=== PATIENT | female | born 1990 | race Caucasian/White ===

== ENCOUNTER 2024-02-10 12:24 | Emergency (ER) | payer MEDICAID, SELFPAY ==
[2024-02-10 12:26] VITALS: BP 152/99; PULSE 107; RESP 26; TEMP 36.8; O2SAT 99
== END 2024-02-10 12:45 | disposition left against medical advice (07) ==
LOC: ED 12:50
PROVIDERS: PCP Nurse Practitioner Family
DX: Z53.21 Procedure and treatment not carried out due to patient leaving prior to being seen by health care provider (principal)

== ENCOUNTER 2024-05-19 23:25 | Emergency (ER) | payer MEDICAID, SELFPAY ==
[2024-05-19 23:27] VITALS: BP 162/102; PULSE 92; RESP 24; TEMP 36.8; O2SAT 98; BMI 49.2
[2024-05-19 23:30] VITALS: BP 122/72; PULSE 77; RESP 18; TEMP 36.6; O2SAT 95
[2024-05-20 00:30] VITALS: BP 125/66; PULSE 88; RESP 16; TEMP 36.9; O2SAT 99
[2024-05-20 01:30] VITALS: BP 128/79; PULSE 67; RESP 16; TEMP 36.8; O2SAT 98
[2024-05-20 01:30] LABS: Mucous, Urine 0 SEEN /hpf (<or=2+); White Blood Cells 0 SEEN /hpf (0-5)
[2024-05-20 01:32] LABS: Absolute Lymphocyte Count 4.25 X10^3/uL (0.83-4.51); Absolute Neutrophil Count 6.9 X10^3/uL (2.0-7.7); Basophil# 0.03 X10^3/uL; Basophil% 0.2 % (0-1); Eosinophils% 1.6 % (0-5); Hematocrit 36.6 % (37-47); Hemoglobin 11.9 g/dL (12.0-15.0); Lymphocyte # 4.25 X10^3/ul (0.83-4.51); Lymphocyte % 34.9 % (19-41); Mean Corp Hgb Conc 32.5 g/dL (32-36); Mean Corpuscular Hgb 28.5 pg (27.0-32.0); Mean Corpuscular Volume 87.8 fL (81-99); Mean Platelet Vol. 10.1 fl (6.2-12.0); Monocyte# 0.79 X10^3/uL; Monocyte% 6.5 % (0-10); NRBC Flagged by Analyzer 0 % (0-5); Neutrophil # 6.88 X10^3/uL (2.7-7.7); Neutrophil % 56.5 % (47-70); Platelet Count 283 K/mm3 (150-450); RBC Distribution Width CV 15.6 % (11.6-14.6); Red Blood Count 4.17 M/mm3 (4.2-5.4); White Blood Count 12.2 K/mm3 (4.4-11.0)
[2024-05-20 01:42] LABS: Internal QC Validated? YES +Cl - CLEAR BKGD; Pregnancy, Serum, hCG Quali. NEGATIVE Negative
[2024-05-20 01:43] LABS: Bacteria 1+ /hpf (None Seen); Color, Urine Yellow (Yellow); Glucose, Dipstick Normal (Normal); Ketone-Dipstick Negative (Negative); Leukocyte Esterase-Dipstick 25 /ul (Negative); Nitrite-Dipstick Negative (Negative); Occult Blood-Urine 250 /ul (Negative); Protein-Dipstick 30 mg/dl (Negative); Red Blood Cells-Urine 0-5 SEEN /hpf (0-5); Squamous Epithelial Cells - UA 0-5 SEEN /hpf (5-10); Urine Bilirubin Dipstick Negative (Negative); Urine Clarity Sl. Cloudy (Clear); Urine Urobilinogen Normal (Normal)
[2024-05-20 01:44] LABS: Amorphous Sediment 2+; Calcium Oxalate Crystals Ur 1+ /hpf (<or=2+)
[2024-05-20 01:48] LABS: ALB/GLOB Ratio 0.8 RATIO (0.9-2.4); AST(SGOT) 17 U/L (15-37); Alanine Aminotransfer ALT/SGPT 31 U/L (13-56); Albumin, Serum 3.1 g/dL (3.2-5.0); Alkaline Phosphatase 74 U/L (45-117); Anion Gap 5 (5-15); BUN 10 mg/dL (7-18); BUN/Creat Ratio 17.2 RATIO (10-20); Chloride 105 mmol/L (98-107); Creatinine, Serum 0.58 mg/dL (0.55-1.02); EST Glomerular Filtration Rate 125 mL/min (>60); Est Glom Filt Rate - Afr Amer 151 mL/min (>60); Estimated Creatinine Clearance 212.13 ml/min; Globulin 3.7 g/dL (2.2-4.2); Glucose 116 mg/dL (74-106); Potassium 3.4 mmol/L (3.5-5.1); Protein, Total 6.8 g/dL (6.4-8.2); Sodium Level 140 mmol/L (136-145)
[2024-05-20 02:00] VITALS: BP 125/86; PULSE 68; RESP 16; TEMP 36.7; O2SAT 99
[2024-05-20] MEDS: Ceftriaxone 1 GM/50 ML BAG IV (02:16)
[2024-05-20] MEDS: Ondansetron 4 MG/2 ML Vial IV (02:19)
[2024-05-20 03:00] VITALS: BP 110/65; PULSE 68; RESP 16; TEMP 36.8; O2SAT 98
--- NOTE | 2024-05-20 03:00 | EDS_ITS ---
HPI History of Present Illness Chief Complaint: Complaint Narrative Narrative: Patient is a 34-year-old female with no known significant past medical history who presents to the emergency department the chief complaint of urinary tract infection. Patient states that she was recently seen in the adult pulmonary and was diagnosed with a urinary tract infection was given a prescription for Bactrim however states that she has an allergy to Bactrim therefore should not start taking this. She returned to the OR and had further workup repeated i as well as a CT abdomen pelvis and was diagnosed with a urinary tract infection again and was given Keflex. States that she has been taking this medicine and states that she is still having painful urination, nausea vomiting and not feeling well which prompted her to come here for further evaluation management. PFSH [facility] Medical History Osteoarthritis of right knee Right knee pain Home Medications ?Medication ?Instructions ?Recorded ?Last Taken ?Type cephalexin 500 mg capsule 500 mg PO BID 05/20/24 Unknown History ciprofloxacin HCl 500 mg tablet 500 mg PO Q12H 5 days #10 tabs 05/20/24 Unknown Rx ondansetron 4 mg disintegrating 4 mg PO Q8H PRN PRN nausea/vomiting 05/20/24 Unknown History tablet tramadol 50 mg tablet 50 mg PO Q6H PRN moderate pain 05/20/24 Unknown History Allergy/AdvReac Type Severity Reaction Status Date / Time trazodone Allergy Severe Anaphylaxis Verified 05/19/24 23:27 sulfamethoxazole (From Allergy Intermediate Rash Verified 05/19/24 23:27 Bactrim) trimethoprim (From Bactrim) Allergy Intermediate Rash Verified 05/19/24 23:27 aspirin Allergy Swelling Verified 05/19/24 23:27 peanut (peanuts) Allergy Other Verified 05/19/24 23:27 diazepam (From Valium) AdvReac Other Verified 05/19/24 23:27 Family History Mother Heart disease Father Seizures Surgical History H/O laparoscopy History of cholecystectomy Social History household members: spouse and family Smoking Status: Current every day smoker tobacco type: cigarettes and e- cigarettes alcohol intake: never ROS ROS ED ROS Narrative Constitutional: Denies any fevers, chills, has, lightness, dizziness Abdomen: Complains of lower abdominal pain as well as nausea vomiting denies any diarrhea : Complains of painful urination denies any hematuria Neurological: Denies numbness, weakness, tingling Musculoskeletal: Denies back pain Skin: Denies rashes or lesions EXAM Physical Exam Narrative Exam Narrative: General: Patient was lying in bed rest comfortably did not appear to be in acute distress Head: Atraumatic, normocephalic Eyes: PERRL bilateral, EOMI bilateral, no conjunctival injection noted Neck: Soft, supple, trachea midline Cardiovascular: Regular rate and rhythm no murmurs gallops rubs noted Respiratory: Clear to auscultation bilaterally no rales rhonchi or wheezes noted Abdomen: Soft, nondistended, suprapubic tenderness palpation no rebound or guarding on exam, bowel sounds present x 4 Musculoskeletal: No CVA tenderness on exam Extremities: +5/5 strength noted in the bilateral upper and lower extremities, no pedal edema neuroexam, radial pulses +2/4 in the bilateral upper extremities Neurological: Patient was following commands knew that she was at [facility] there is 2023 Skin: Warm, dry, intact Const Vital Signs: 05/19/24 23:27 05/19/24 23:30 05/20/24 00:30 Temperature 98.2 F 98 F 98.4 F Temperature Source Oral Oral Oral Pulse Rate 92 77 88 Respiratory Rate 24 H 18 16 Blood Pressure 162/102 H 122/72 H 125/66 H Blood Pressure Mean 122 88 85 Pulse Ox 98 95 99 Oxygen Delivery Method Room Air Room Air Room Air 05/20/24 01:30 05/20/24 02:00 Temperature 98.2 F 98.1 F Temperature Source Oral Oral Pulse Rate 67 68 Respiratory Rate 16 16 Blood Pressure 128/79 H 125/86 H Blood Pressure Mean 95 99 Pulse Ox 98 99 Oxygen Delivery Method Room Air Room Air MDM MDM MDM Narrative Medical decision making narrative: Patient is a 34-year-old female who presents to the emergency department with a chief complaint of lower abdominal pain nausea vomiting and urinary symptoms. Patient will have a workup performed here on the differential diagnose includes but not limited to UTI, pyelonephritis, , ovarian cysts. Once workup is obtained reviewed she will be reevaluated. Patient CBC was significant for leukocytosis of 12,000, hemoglobin stable 11.9, platelet count normal at 283. Patient's sodium normal at 140, potassium was 3.4, creatinine normal at 0.58. Patient's glucose was noted to be 116, AST and ALT were 1731 respectively, urinalysis showed 25 leukocyte esterase negative nitrates with 1+ bacteria this will be sent for culture. She was given a gram Rocephin. On reevaluation the patient she states that she has to go home and pick her up from work. She states that she does not want a wait for her ultrasound. Patient understands that there is possibility of us missing a abscess or another abnormality within her uterus or ovaries she states that she will call her OB and have a ultrasound performed outpatient setting and follow- up with them. She states that she would like a different antibiotic which she will be given ciprofloxacin. Patient was advised to return with worsening symptoms or other concerns. She has to go pick her up and cannot will wait any longer. She states that she would sign out AMA if she needs to will not make her do this as she does not appear toxic in appearance she has a nonsurgical abdomen and her workup is unremarkable. Lab Data Labs: Laboratory Results - last 24 hr 05/20/24 01:20 WBC 12.2 H RBC 4.17 L Hgb 11.9 L Hct 36.6 L MCV 87.8 MCH 28.5 MCHC 32.5 RDW Std Deviation 49.0 H RDW Coeff of Linda 15.6 H Plt Count 283 MPV 10.1 Immature Gran % (Auto) 0.300 Neut % (Auto) 56.5 Lymph % (Auto) 34.9 [place] % (Auto) 6.5 Eos % (Auto) 1.6 Baso % (Auto) 0.2 Absolute Neuts (auto) 6.9 Absolute Lymphs (auto) 4.25 Nucleated RBC % 0 Sodium 140 Potassium 3.4 L Chloride 105 Carbon Dioxide 30.0 Anion Gap 5 BUN 10 Creatinine 0.58 Estim Creat Clear Calc 212.13 Est GFR (MDRD) Af Amer 151 Est GFR (MDRD) Non-Af 125 BUN/Creatinine Ratio 17.2 Glucose 116 H Calcium 9.0 Total Bilirubin 0.20 AST 17 ALT 31 Alkaline Phosphatase 74 Total Protein 6.8 Albumin 3.1 L Globulin 3.7 Albumin/Globulin Ratio 0.8 L Serum , Qual NEGATIVE Urine Color Yellow Urine Clarity Sl. Cloudy Urine pH 7.0 Ur Specific Amery 1.020 Urine Protein 30 H Urine Glucose (UA) Normal Urine Ketones Negative Urine Occult Blood 250 H Urine Nitrite Negative Urine Bilirubin Negative Urine Urobilinogen Normal Ur Leukocyte Esterase 25 H Urine RBC 0-5 SEEN Urine WBC 0 SEEN Ur Squamous Epith Cells 0-5 SEEN Calcium Oxalate Crystal 1+ Amorphous Sediment 2+ Urine Bacteria 1+ Urine Mucus 0 SEEN Discharge Plan Triage Chief Complaint: Complaint ED Provider: Martín Hare Dx/Rx/DC Orders Clinical Impression: Urinary tract infection Prescriptions: New ciprofloxacin HCl 500 mg tablet 500 mg PO Q12H 5 Days Qty: 10 0RF No Action tramadol 50 mg tablet 50 mg PO Q6H PRN (Reason: moderate pain) Patient Comments: patient out of rx cephalexin 500 mg capsule 500 mg PO BID ondansetron 4 mg tablet,disintegrating 4 mg PO Q8H PRN PRN (Reason: nausea/vomiting) Primary Care Provider: Ursula Silver NP Referrals: Ursula Silver NP, WEALTH MANAGEMENT DIRECTOR-C [Primary Care Provider] - Harpal Cabrera MD [Med Staff - Active Staff] - Activity Restrictions/Additional Instructions: Take antibiotics as prescribed. Follow-up on your urine culture with your primary care physician or your INTERNET SITE DESIGNER in the outpatient setting. Return with worsening symptoms or other concerns. You are also referred to urologist. Print Language: Luxembourger Disposition Disposition: Home, Self Care
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
== END 2024-05-20 03:03 | disposition home or self-care (01) ==
PROVIDERS: Emergency Provider Emergency Medicine; PCP Nurse Practitioner Family; Visit Provider Emergency Medicine
DX: N39.0 Urinary tract infection, site not specified (principal)
CPT/HCPCS: 80053; 81001; 84703; 85025; 87086; 87088; 96365; 96375; 96376; 99282; J7050; A4216; J2405

== ENCOUNTER 2024-07-15 18:48 | Emergency (ER) | payer MEDICAID, SELFPAY ==
[2024-07-15 18:49] VITALS: BP 149/116; PULSE 98; RESP 24; TEMP 36.6; O2SAT 100; BMI 47.5
[2024-07-15 19:36] LABS: Absolute Lymphocyte Count 4.57 X10^3/uL (0.83-4.51); Absolute Neutrophil Count 8.3 X10^3/uL (2.0-7.7); Basophil# 0.03 X10^3/uL; Basophil% 0.2 % (0-1); Hematocrit 38.8 % (37-47); Hemoglobin 13.4 g/dL (12.0-15.0); Lymphocyte # 4.57 X10^3/ul (0.83-4.51); Lymphocyte % 32.6 % (19-41); Mean Corp Hgb Conc 34.5 g/dL (32-36); Mean Corpuscular Hgb 29.4 pg (27.0-32.0); Mean Corpuscular Volume 85.1 fL (81-99); Mean Platelet Vol. 10.1 fl (6.2-12.0); Monocyte# 1.08 X10^3/uL; Monocyte% 7.7 % (0-10); NRBC Flagged by Analyzer 0 % (0-5); Neutrophil # 8.29 X10^3/uL (2.7-7.7); Neutrophil % 59.2 % (47-70); Platelet Count 366 K/mm3 (150-450); RBC Distribution Width CV 15.1 % (11.6-14.6); Red Blood Count 4.56 M/mm3 (4.2-5.4)
[2024-07-15] MEDS: Haloperidol Lactate 5 MG/ML Vial 2 MG IV (19:37)
--- NOTE | 2024-07-15 19:42 | EDS_ITS ---
HPI History of Present Illness Chief Complaint: Mental Health Informant: patient and spouse/S.O. Narrative Narrative: Presents here with significant other for evaluation after leaving another emergency department. She started her menstrual period 2 days ago increasing pelvic cramping. States unable to lay still. She was seen at another ED, reported blood work was drawn, stated she was diagnosed with a panic attack. She is given Benadryl and Ativan. She left due to not agreeing with the diagnosis. She reports she has had similar symptoms in the past that would help with hot showers. Discussion of recreational drug she admits to marijuana use however states has been more than 10 days since her last use. She reported imminent nausea and vomiting with her pain and cramping. I discussed the possibility of marijuana induced symptoms however patient still states she has not had similar symptoms in the past. However further discussion reports she has been treated with capsaicin cream in the past for which she did not like. She is diagnosed with endometriosis stating had a laparoscopy in the past along with PCOS. She is not on any medications for this. Denies alcohol history. Prior similar symptoms: Yes PFSH PFSH Medical History PTSD (post-traumatic stress disorder) Bipolar 1 disorder Anxiety Osteoarthritis of right knee Right knee pain Home Medications ?Medication ?Instructions ?Recorded ?Last Taken ?Type ondansetron 4 mg disintegrating 4 mg PO Q8H PRN PRN Nausea #10 tabs 07/15/24 Unknown Rx tablet Allergy/AdvReac Type Severity Reaction Status Date / Time trazodone Allergy Severe Anaphylaxis Verified 07/15/24 18:49 sulfamethoxazole (From Allergy Intermediate Rash Verified 07/15/24 18:49 Bactrim) trimethoprim (From Bactrim) Allergy Intermediate Rash Verified 07/15/24 18:49 aspirin Allergy Swelling Verified 07/15/24 18:49 peanut (peanuts) Allergy Other Verified 07/15/24 18:49 diazepam (From Valium) AdvReac Other Verified 07/15/24 18:49 Family History Mother Heart disease Father Seizures Surgical History H/O laparoscopy History of cholecystectomy Social History household members: spouse and family Smoking Status: Current every day smoker tobacco type: cigarettes and e- cigarettes alcohol intake: never ROS ROS ED Constitutional Constitutional ED: Denies chills, fever(s) or sweats Eyes Eyes: Denies change in vision ENT ENT ED: Denies dysphagia or sore throat Cardiovascular Cardiovascular: Denies chest pain, leg edema, palpitations or racing heartbeat Respiratory/Chest Respiratory/Chest: Denies cough, dyspnea or dyspnea on exertion Gastrointestinal Gastrointestinal: Reports abdominal pain, nausea and vomiting; Denies diarrhea Genitourinary Genitourinary ED: Denies dysuria, hematuria or urinary frequency Musculoskeletal Musculoskeletal: Denies back pain, extremity pain or neck pain Integumentary Denies rash or wounds Neurologic Neurologic: Denies headache(s), paresthesias or weakness EXAM Physical Exam Const Vital Signs: 07/15/24 18:49 Temperature 97.8 F Temperature Source Temporal Pulse Rate 98 Respiratory Rate 24 H Blood Pressure 149/116 H Blood Pressure Mean 127 Pulse Ox 100 Positive well nourished and well developed Constitutional Narrative: Nontoxic, rocking back and forth in bed. General Appearance ED: well developed HEENT Reports moist mucous membranes normocephalic and atraumatic Eyes EOMs intact bilaterally and conjunctivae normal General Eye ED: Yes normal appearance of both eyes Neck no lymphadenopathy and supple General: Negative for tenderness Chest Wall Chest: Negative for tenderness Resp normal respiratory effort and normal air movement Effort and Inspection: symmetric chest movement; Negative for respiratory distress Cardio regular rate, regular rhythm and no murmurs Peripheral Pulses: pulses 2+ throughout GI normal to inspection, nondistended, normoactive bowel sounds and non-tender GI Narrative: Soft abdomen exam with no guarding or rebound. Palpation: Negative for guarding or rebound tenderness present Back/Spine no CVA tenderness and no thoracic nor lumbar tenderness Extremity normal to inspection General Extremety ED: Negative for edema or tenderness General Extremity: Negative for edema Neuro oriented x3 and no sensory deficits noted Sensorium / Orientation: awake and alert Skin no rashes or lesions noted and no wounds MDM MDM MDM Narrative Medical decision making narrative: Interventions / MDM: Differential diagnosis: Menorrhagia, cannabis hyperemesis syndrome Diagnosis considered but do not suspect: Nonsurgical abdomen, no clinical torsion, no clinical appendicitis, no clinical cholecystitis, ectopic however hCG negative My EKG interpretation: N/A Imaging independently reviewed and interpreted by myself: N/A External documents reviewed: N/A Test considered but not ordered:N/A ED course: Patient declined capsaicin treatment. I discussed will obtain medical rule out with abdominal labs and hCG. Will send for toxicology screen. She did agree with Haldol as she wanted to be able to calm down which will also help with her current symptoms. 2030: Reevaluate patient is much more comfortable abdomen remains soft. Labs white count of 14. Potassium 3.2. Hemoglobin 13.4. hCG negative. Toxicology screen positive for THC. Discussed her white count was 14 likely reactive patient significant other. Discussed with her concern can further test with imaging, they declined at this time. She is feeling much more comfortable. Discussed secondhand exposure can also lead to symptoms. Discussed likely marijuana induced pain and vomiting. In addition she does have endometriosis with PCOS. She is day 2 of her menstrual period. This also can play a factor with her pain. She does not have a spread cutter. They would like referral. I discussed marijuana cessation with patient. Prescription Zofran to her pharmacy. All questions were answered. Re-evaluation: stable Disposition discussed with patient/family/significant other: Patient and significant other Case discussed with consulting clinician: N/A This note was generated with sofatutor dictation software. It may contain incorrect words, spelling, and punctuation that were not noted in checking the note before signing. Lab Data Attestation: I reviewed the patient's lab results. Labs: Laboratory Results - last 24 hr 07/15/24 19:23 WBC 14.0 H RBC 4.56 Hgb 13.4 Hct 38.8 MCV 85.1 MCH 29.4 MCHC 34.5 RDW Std Deviation 47.0 H RDW Coeff of Linda 15.1 H Plt Count 366 MPV 10.1 Immature Gran % (Auto) 0.300 Neut % (Auto) 59.2 Lymph % (Auto) 32.6 [place] % (Auto) 7.7 Eos % (Auto) 0.0 Baso % (Auto) 0.2 Absolute Neuts (auto) 8.3 H Absolute Lymphs (auto) 4.57 H Nucleated RBC % 0 Sodium 137 Potassium 3.2 L Chloride 105 Carbon Dioxide 17.0 L Anion Gap 14 BUN 8 Creatinine 0.57 Estim Creat Clear Calc 211.16 Est GFR (MDRD) Af Amer 155 Est GFR (MDRD) Non-Af 128 BUN/Creatinine Ratio 14.1 Glucose 104 Calcium 9.3 Total Bilirubin 0.80 Direct Bilirubin 0.21 AST 23 ALT 19 Alkaline Phosphatase 79 Total Protein 7.7 Albumin 3.8 Globulin 3.9 Albumin/Globulin Ratio 1.0 Lipase 34 Serum , Qual NEGATIVE Urine Opiates Screen NEGATIVE Urine Methadone Screen NEGATIVE Ur Barbiturates Screen NEGATIVE Ur Phencyclidine Scrn NEGATIVE Ur Amphetamines Screen NEGATIVE MDMA (Ecstasy) Screen NEGATIVE U Benzodiazepines Scrn NEGATIVE Urine Cocaine Screen NEGATIVE U Cannabinoids Screen POSITIVE H Ur Drug Screen Comment Discharge Plan Triage Chief Complaint: Mental Health ED Provider: Alejandro Rene Dx/Rx/DC Orders Clinical Impression: Marijuana use, Nausea & vomiting, History of PCOS, Endometriosis, Hypokalemia Instructions: Cannabinoid Hyperemesis Syndrome, ED Endometriosis Prescriptions: New ondansetron 4 mg tablet,disintegrating 4 mg PO Q8H PRN PRN (Reason: Nausea) Qty: 10 0RF Stand Alone Forms: ED Work / School Excuse Primary Care Provider: Ursula Silver NP Referrals: Marga Esparza MD [Med Staff - Active Staff] - 1-2 Weeks Ursula Silver NP, DEMO COORDINATOR-C [Primary Care Provider] - Activity Restrictions/Additional Instructions: Avoid marijuana if you do not want recurrent symptoms. With your history of PCOS and endometriosis follow-up with gynecology. Use Zofran as needed. Print Language: Burkinan Disposition Disposition: Home, Self Care Discharge Date/Time: 07/15/24 21:01
[2024-07-15 19:46] LABS: Internal QC Validated? YES +Cl - CLEAR BKGD; Pregnancy, Serum, hCG Quali. NEGATIVE Negative
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
[2024-07-15 19:54] LABS: AST(SGOT) 23 U/L (15-37); Alanine Aminotransfer ALT/SGPT 19 U/L (13-56); Albumin, Serum 3.8 g/dL (3.2-5.0); Alkaline Phosphatase 79 U/L (45-117); Anion Gap 14 (5-15); BUN 8 mg/dL (7-18); BUN/Creat Ratio 14.1 RATIO (10-20); Bilirubin, Direct 0.21 mg/dL (0.00-0.30); Calcium,Total 9.3 mg/dL (8.5-10.1); Chloride 105 mmol/L (98-107); Creatinine, Serum 0.57 mg/dL (0.55-1.02); EST Glomerular Filtration Rate 128 mL/min (>60); Est Glom Filt Rate - Afr Amer 155 mL/min (>60); Estimated Creatinine Clearance 211.16 ml/min; Globulin 3.9 g/dL (2.2-4.2); Glucose 104 mg/dL (74-106); Lipase 34 U/L (13-75); Potassium 3.2 mmol/L (3.5-5.1); Protein, Total 7.7 g/dL (6.4-8.2); Sodium Level 137 mmol/L (136-145)
[2024-07-15 20:01] LABS: Amphetamine Urine VISTA NEGATIVE (<1000 ng/mL); Barbiturate Urine VISTA NEGATIVE (< 200 ng/mL); Benzodiazepine Urine VISTA NEGATIVE (< 200 ng/mL); Cocaine Urine VISTA NEGATIVE (< 300 ng/mL); Ecstacy Urine VISTA NEGATIVE (< 500 ng/mL); Methadone Urine VISTA NEGATIVE (< 300 ng/mL); PCP Urine VISTA NEGATIVE (< 25 ng/mL); THC Urine VISTA POSITIVE (< 50 ng/mL); Vista UDS pH Range 5
--- NOTE | 2024-07-15 20:10 | CM.ED ---
Social Work: home support worker went back to patient's room to provide patient with resources however patient had fallen asleep. Due to the state of crisis patient was previously observed to be in as well as not having slept for the past three days, social service coordinator did not enter the room and will go back to offer patient resources once patient is awake again. Heather Ramirez, PROFESSOR OF PHYSICS, TECHNICAL TRAINING MANAGER
--- NOTE | 2024-07-15 20:50 | CM.ED ---
Social Work: social worker health services noted patient is being discharged so social services director went into patient's room and provided fiance with all of the written resources for patient as patient was still sleeping. Heather Ramirez, PORTER LUGGAGE, HEALTHCARE NETWORK CONSULTANT
[2024-07-15] MEDS: Potassium Chloride Oral Tablet 20 MEQ 40 MEQ PO (20:54)
== END 2024-07-15 21:01 | disposition home or self-care (01) ==
PROVIDERS: Emergency Provider Emergency Medicine; PCP Nurse Practitioner Family; Visit Provider Emergency Medicine
DX: F12.90 Cannabis use, unspecified, uncomplicated (principal); R11.2 Nausea with vomiting, unspecified; N80.9 Endometriosis, unspecified; E87.6 Hypokalemia; F17.210 Nicotine dependence, cigarettes, uncomplicated; F17.290 Nicotine dependence, other tobacco product, uncomplicated
CPT/HCPCS: 80053; 80076; 80307; 83690; 84703; 85025; 96374; 96376; 99285; A4216

== ENCOUNTER 2024-07-16 13:51 | Emergency (ER) | payer MEDICAID, SELFPAY ==
[2024-07-16 13:51] VITALS: BP 196/145; PULSE 98; RESP 30; TEMP 36.4; O2SAT 100; BMI 47.4
--- NOTE | 2024-07-16 14:12 | ED.VIS.GI ---
HPI HPI - GI History of Present Illness Chief Complaint: Abd Pain Narrative Narrative: 34-year-old female past medical history of bipolar disorder, PTSD, was seen in the emergency department within the last 24 hours with 4 to 5 days of abdominal pain. She states they gave her Haldol, and sent her home. Her significant other states that she is complaining of a tearing pain and ripping sensation in the left lower quadrant of her abdomen. She does have history of endometriosis. PFSH PFSH Medical History PTSD (post-traumatic stress disorder) Bipolar 1 disorder Anxiety Osteoarthritis of right knee Right knee pain Home Medications ?Medication ?Instructions ?Recorded ?Last Taken ?Type ondansetron 4 mg disintegrating 4 mg PO Q8H PRN PRN Nausea #10 tabs 07/15/24 Unknown Rx tablet Allergy/AdvReac Type Severity Reaction Status Date / Time trazodone Allergy Severe Anaphylaxis Verified 07/16/24 13:51 sulfamethoxazole (From Allergy Intermediate Rash Verified 07/16/24 13:51 Bactrim) trimethoprim (From Bactrim) Allergy Intermediate Rash Verified 07/16/24 13:51 aspirin Allergy Swelling Verified 07/16/24 13:51 peanut (peanuts) Allergy Other Verified 07/16/24 13:51 diazepam (From Valium) AdvReac Other Verified 07/16/24 13:51 Family History Mother Heart disease Father Seizures Surgical History H/O laparoscopy History of cholecystectomy Social History household members: spouse and family Smoking Status: Current every day smoker tobacco type: cigarettes and e-cigarettes alcohol intake: never ROS ROS ED ROS Narrative Constitutional: No fever, no chills. HEENT: No sore throat. No neck pain. No loss of vision. No rhinorrhea. Cardiovascular: No chest pain. No palpitations. No pedal edema. Respiratory: No cough, no shortness of breath. Abdominal: Left lower quadrant abdominal pain. Feels like tearing or ripping. No nausea. No vomiting. Genitourinary: No dysuria. No hematuria. Musculoskeletal: No myalgias. No arthralgias. Neurologic: No headaches. No dizziness. No lightheadedness. EXAM Physical Exam Narrative Exam Narrative: Afebrile. Vital signs noted. Nontoxic-appearing. Upon entering the room, she is bent over the cot, holding onto the guard rail, and hyperventilating. Cardiovascular examination reveals a regular rate and rhythm. Lungs are clear to auscultation bilaterally. Abdomen soft, obese, with positive bowel sounds. Questionable tenderness left lower quadrant of the abdomen. Psychiatric examination shows mild agitation, she stand up, then bent over the bed again, and intermittently scream. Const Vital Signs: 07/16/24 13:51 Temperature 97.6 F L Temperature Source Temporal Pulse Rate 98 Respiratory Rate 30 H Blood Pressure 196/145 H Blood Pressure Mean 162 Pulse Ox 100 Oxygen Delivery Method Room Air MDM MDM MDM Narrative Medical decision making narrative: I reviewed the patient's prior ED visit from last evening. Apparently, she had left a different ED where they state that the dictation that apparently she had labs drawn and was given the diagnosis of panic attack, and did not like that diagnosis so she presented to the emergency department here. Also had been given Benadryl and Ativan. She was given Haldol 2 mg intravenously, and workup was pursued. I reviewed the laboratory work from within 24 hours and she has slightly elevated white count of 14 which I think is nonspecific. She was also given a prescription for Zofran. She was positive for marijuana but did not want to try the capsaicin for her abdominal pain. Today, her history and physical is mildly limited because of her behavior, and not answering certain questions. When I spoke to the patient and her significant other to tell them that I was going to review her visit from last evening, he stated something to the effect that they gave her Haldol and sent her home. Differential diagnosis for abdominal pain includes ureterolithiasis versus diverticulitis versus colitis. I did not see that yesterday evening that any imaging was performed, so I felt that CT of the abdomen and pelvis with IV contrast may be appropriate. In further review of the ED visit, patient and her significant other had declined any imaging. I do not feel that repeat laboratory work is indicated because it has been performed within the last 24 hours. In order to make her more comfortable for imaging, was going to repeat a dose of Haldol 2 mg intravenously. Orders were placed. However, I was told by the RN shortly thereafter that the patient has eloped from the emergency department. Disposition is eloped in stable condition. History & Record Review Discussion w/independent historian: Patient and Significant other Additional record(s) reviewed:: Prior ED visit and Prior labs Discharge Plan Triage Chief Complaint: Abd Pain ED Provider: Jai rAizmendi Dx/Rx/DC Orders Clinical Impression: Abdominal pain, Marijuana use Prescriptions: No Action ondansetron 4 mg tablet,disintegrating 4 mg PO Q8H PRN PRN (Reason: Nausea) Qty: 10 0RF Primary Care Provider: Ursula Silver NP Referrals: Ursula Silver NP, QUALITY ASSOCIATE-C [Primary Care Provider] - Print Language: Portuguese Disposition Disposition: Home, Self Care Discharge Date/Time: 07/16/24 14:24
== END 2024-07-16 14:24 | disposition home or self-care (01) ==
PROVIDERS: Emergency Provider Emergency Medicine; PCP Nurse Practitioner Family; Visit Provider Emergency Medicine
DX: R10.9 Unspecified abdominal pain (principal); F31.9 Bipolar disorder, unspecified; F17.210 Nicotine dependence, cigarettes, uncomplicated; F12.90 Cannabis use, unspecified, uncomplicated; F17.290 Nicotine dependence, other tobacco product, uncomplicated
CPT/HCPCS: 99282

== ENCOUNTER 2024-07-17 18:39 | Emergency (ER) | payer MEDICAID, SELFPAY ==
[2024-07-17 18:40] VITALS: BP 192/101; PULSE 91; RESP 28; TEMP 36; O2SAT 100
--- NOTE | 2024-07-17 18:50 | RAD_ITS ---
STUDY: X-RAY CHEST REASON FOR EXAM: Female, 34 years old. Rib pain TECHNIQUE: Frontal and lateral views of the chest. COMPARISON: None. FINDINGS: There are mild right lower lung increased opacities. There is no demonstrated pleural abnormality. Normal size heart. Normal mediastinum and chasidy. Normal visualized pulmonary arteries. Normal visualized aortic arch and descending thoracic aorta. Normal visualized thoracic spine. Normal visualized ribs, clavicles, and shoulders. There is no demonstrated abnormality of the visualized soft tissue structures of the upper abdomen. RAD/Chest PA and Lateral IMPRESSION: Mild right lower lung infiltrate. Electronically Signed: Tiago Alexander MD at 20:12 [facility] ,
--- NOTE | 2024-07-17 19:07 | ED.RN ---
pt had xray, when returned stated she was in too much pain to wait in waiting room. aware the plan was for her to get to ED room next
== END 2024-07-17 19:05 | disposition left against medical advice (07) ==
LOC: ED 19:06
PROVIDERS: PCP Nurse Practitioner Family
DX: Z53.21 Procedure and treatment not carried out due to patient leaving prior to being seen by health care provider (principal)
CPT/HCPCS: 71046

== ENCOUNTER 2024-09-16 16:02 | Emergency (ER) | payer MEDICAID, SELFPAY ==
[2024-09-16 16:03] VITALS: BP 194/107; PULSE 80; RESP 16; TEMP 36.4; O2SAT 100
--- NOTE | 2024-09-16 16:11 | ED.VIS.GI ---
HPI HPI - GI History of Present Illness Chief Complaint: Nausea/Vomiting/Diarrhea Informant: patient Abdominal Pain/Flank Pain Onset: Days (3) Context: Gradual Onset Timing: Continuous Quality: Stabbing Location: RLQ and LLQ Worsened by: Nothing Relieved by: Nothing Nausea/Vomiting/Emesis GI Symptom: Positive for Nausea and Vomiting Onset: Days (3) Diarrhea/Melena/Hematochezia GI Symptom: Positive for Diarrhea; Negative for Melena or Hematochezia Onset: Days (3) Associated Symptoms Associated Symptoms: Negative for Dysuria, Frequency or Hematuria LMP: Current Narrative Narrative: Patient presents with abdominal pain, nausea, vomiting, and diarrhea that has been getting worse over the past 3 days. Patient states that this is similar to prior symptoms she gets whenever she starts her menstrual period. Patient admits to some diarrhea but denies any melena or hematochezia. Patient admits to some nausea and vomiting but denies any hematemesis or coffee-ground emesis patient describes her pain as stabbing. Patient states it is mainly over the lower abdomen. Patient states it has been constant. Patient states nothing makes it better and nothing makes it worse. PFSH PFSH Medical History PTSD (post-traumatic stress disorder) Bipolar 1 disorder Anxiety Osteoarthritis of right knee Right knee pain Home Medications ?Medication ?Instructions ?Recorded ?Last Taken ?Type ondansetron 4 mg disintegrating 4 mg PO Q8H PRN PRN Nausea #10 tabs 09/16/24 Unknown Rx tablet Allergy/AdvReac Type Severity Reaction Status Date / Time trazodone Allergy Severe Anaphylaxis Verified 09/16/24 16:04 sulfamethoxazole (From Allergy Intermediate Rash Verified 09/16/24 16:04 Bactrim) trimethoprim (From Bactrim) Allergy Intermediate Rash Verified 09/16/24 16:04 aspirin Allergy Swelling Verified 09/16/24 16:04 peanut (peanuts) Allergy Other Verified 09/16/24 16:04 diazepam (From Valium) AdvReac Other Verified 09/16/24 16:04 Family History Mother Heart disease Father Seizures Surgical History H/O laparoscopy History of cholecystectomy Social History household members: spouse and family Smoking Status: Current every day smoker tobacco type: cigarettes and e-cigarettes alcohol intake: never ROS ROS ED Constitutional Constitutional ED: Denies chills or fever(s) Eyes Eyes: Denies blurry vision or change in vision ENT ENT ED: Denies rhinorrhea or sore throat Cardiovascular Cardiovascular: Reports chest pain; Denies palpitations Respiratory/Chest Respiratory/Chest: Denies cough or dyspnea Gastrointestinal Gastrointestinal: Reports abdominal pain; Denies nausea or vomiting Genitourinary Genitourinary ED: Denies dysuria or hematuria Musculoskeletal Musculoskeletal: Denies back pain or neck pain Integumentary Denies abscess or rash Neurologic Neurologic: Denies headache(s) or weakness Allergic/Immunologic Allergic/Immunologic ED: Denies mouth swelling or urticaria EXAM Physical Exam Const Vital Signs: 09/16/24 16:03 09/16/24 18:02 Temperature 97.6 F L Temperature Source Temporal Pulse Rate 80 87 Respiratory Rate 16 18 Blood Pressure 194/107 H 145/69 H Blood Pressure Mean 136 94 Pulse Ox 100 98 Oxygen Delivery Method Room Air Room Air Positive well nourished and well developed Constitutional Narrative: BMI 37.3 General Appearance ED: well developed and NAD HEENT Reports moist mucous membranes Neck supple and no JVD Resp normal respiratory effort and clear to auscultation bilaterally Cardio regular rate and regular rhythm GI non-distended Palpation: soft and tender epigastric, LLQ, RLQ, LUQ, RUQ, periumbilical and suprapubic Neuro CN's II-XII intact bilaterally, moves all extremities and no sensory deficits noted Sensorium / Orientation: alert Motor Exam: strength 5/5 throughout Psych mental status grossly normal MDM MDM MDM Narrative Medical decision making narrative: Differential diagnosis includes gastroenteritis, electrolyte abnormality, dehydration, viral illness, urinary tract infection, and . CBC will be obtained to assess for leukocytosis and anemia. Basic metabolic profile will be obtained to assess for electrolyte abnormality and renal function. Urinalysis will be obtained to assess for urinary tract infection and hematuria. Serum hCG will be obtained to assess for . Lab Data Attestation: I reviewed the patient's lab results. Lab results narrative: CBC was reviewed. There is a slight leukocytosis of 13.1. The remainder is within normal limits. Basic metabolic profile was reviewed and was within normal limits. Serum hCG was reviewed and was negative. Urinalysis was reviewed. Urine nitrates were positive. Leukocyte esterase was 100. There is 0-5 white blood cells noted. There are greater than 100 red blood cells. Labs: Laboratory Results - last 24 hr 09/16/24 09/16/24 16:36 18:40 WBC 13.1 H RBC 4.66 Hgb 13.5 Hct 40.6 MCV 87.1 MCH 29.0 MCHC 33.3 RDW Std Deviation 48.5 H RDW Coeff of Linda 15.1 H Plt Count 375 MPV 9.8 Immature Gran % (Auto) 0.400 Neut % (Auto) 65.2 Lymph % (Auto) 26.6 [place] % (Auto) 6.3 Eos % (Auto) 1.2 Baso % (Auto) 0.3 Absolute Neuts (auto) 8.6 H Absolute Lymphs (auto) 3.49 Nucleated RBC % 0 Sodium 141 Potassium 3.4 L Chloride 106 Carbon Dioxide 24.0 Anion Gap 11 BUN 10 Creatinine 0.72 Estim Creat Clear Calc 145.98 Est GFR (MDRD) Af Amer 117 Est GFR (MDRD) Non-Af 97 BUN/Creatinine Ratio 13.9 Glucose 124 H Calcium 9.6 Serum , Qual NEGATIVE Urine Color [place] Urine Clarity Cloudy Urine pH 5.0 Ur Specific [place] 1.025 Urine Protein 100 H Urine Glucose (UA) Normal Urine Ketones 150 A* Urine Occult Blood 250 H Urine Nitrite Positive H Urine Bilirubin 1 H Urine Urobilinogen 1 H Ur Leukocyte Esterase 100 H Urine RBC > 100 SEEN Urine WBC 0-5 SEEN Ur Squamous Epith Cells 0-5 SEEN Urine Bacteria 2+ Urine Mucus 0 SEEN Treatment and Re-Evaluation :: Patient was given IV fluids and Zofran initially. Patient was still having nausea. Patient was given Reglan and Benadryl. Patient was advised of her findings. Patient was given prescription for Zofran. Patient was instructed to start with a liquid diet and advance as tolerated. Patient was instructed to follow-up with her primary care physician and [facility] in 5 to 7 days. Patient understood and was agreeable with the plan. All questions were answered. Discharge Plan Triage Chief Complaint: Nausea/Vomiting/Diarrhea ED Provider: Adi Quezada Dx/Rx/DC Orders Clinical Impression: Pelvic pain, Endometriosis, History of PCOS Instructions: ED Pelvic Pain, Unknown Cause Prescriptions: Continued ondansetron 4 mg tablet,disintegrating 4 mg PO Q8H PRN PRN (Reason: Nausea) Qty: 10 0RF Primary Care Provider: Ursula Silver NP Referrals: Ursula Silver NP, [employer]EST BIOMETRICS PROFESSOR-C [Primary Care Provider] - 5-7 Days Print Language: Romanian Disposition Disposition: Home, Self Care
[2024-09-16 16:29] VITALS: BMI 37.3
[2024-09-16 16:32] VITALS: BMI 37.3
[2024-09-16] MEDS: 0.9% Normal Saline (1000mL) 1,000 ML 999 ML IV (16:33)
[2024-09-16] MEDS: Ondansetron 4 MG/2 ML Vial IV (16:35)
[2024-09-16 16:47] LABS: Absolute Lymphocyte Count 3.49 X10^3/uL (0.83-4.51); Absolute Neutrophil Count 8.6 X10^3/uL (2.0-7.7); Basophil# 0.04 X10^3/uL; Basophil% 0.3 % (0-1); Eosinophil# 0.16 X10^3/uL; Eosinophils% 1.2 % (0-5); Hematocrit 40.6 % (37-47); Hemoglobin 13.5 g/dL (12.0-15.0); Lymphocyte # 3.49 X10^3/ul (0.83-4.51); Lymphocyte % 26.6 % (19-41); Mean Corp Hgb Conc 33.3 g/dL (32-36); Mean Corpuscular Volume 87.1 fL (81-99); Mean Platelet Vol. 9.8 fl (6.2-12.0); Monocyte# 0.83 X10^3/uL; Monocyte% 6.3 % (0-10); NRBC Flagged by Analyzer 0 % (0-5); Neutrophil # 8.55 X10^3/uL (2.7-7.7); Neutrophil % 65.2 % (47-70); Platelet Count 375 K/mm3 (150-450); RBC Distribution Width CV 15.1 % (11.6-14.6); RBC Distribution Width SD 48.5 fl (35.1-43.9); Red Blood Count 4.66 M/mm3 (4.2-5.4); White Blood Count 13.1 K/mm3 (4.4-11.0)
[2024-09-16 17:01] LABS: Internal QC Validated? YES +Cl - CLEAR BKGD; Pregnancy, Serum, hCG Quali. NEGATIVE Negative
[2024-09-16 17:02] LABS: Anion Gap 11 (5-15); BUN 10 mg/dL (7-18); BUN/Creat Ratio 13.9 RATIO (10-20); Calcium,Total 9.6 mg/dL (8.5-10.1); Chloride 106 mmol/L (98-107); Creatinine, Serum 0.72 mg/dL (0.55-1.02); EST Glomerular Filtration Rate 97 mL/min (>60); Est Glom Filt Rate - Afr Amer 117 mL/min (>60); Estimated Creatinine Clearance 145.98 ml/min; Glucose 124 mg/dL (74-106); Potassium 3.4 mmol/L (3.5-5.1); Sodium Level 141 mmol/L (136-145)
[2024-09-16] MEDS: Metoclopramide 10 MG/2 ML Vial IV (17:14)
[2024-09-16] MEDS: DiphenhydrAMINE 50 MG/ML Syringe 25 MG IV (17:14)
--- NOTE | 2024-09-16 17:44 | ED.RN ---
AMBULATED PT. TO BATHROOM VIA STAND-BY ASSIST PER PT. REQUEST. PT. HANDED A CUP FOR A URINE SAMPLE. UNABLE TO PRODUCE SAMPLE AT THIS TIME. THIS WAS PT. SECOND ATTEMPT
[2024-09-16 18:02] VITALS: BP 145/69; PULSE 87; RESP 18; O2SAT 98
[2024-09-16 18:45] LABS: Mucous, Urine 0 SEEN /hpf (<or=2+)
[2024-09-16 18:48] LABS: Color, Urine Amber (Yellow); Glucose, Dipstick Normal (Normal); Leukocyte Esterase-Dipstick 100 /ul (Negative); Nitrite-Dipstick Positive (Negative); Occult Blood-Urine 250 /ul (Negative); Protein-Dipstick 100 mg/dl (Negative); Specific Gravity, Urine 1.025 (1.002-1.030); Urine Clarity Cloudy (Clear); Urine Urobilinogen 1 mg/dl (Normal)
[2024-09-16 18:59] LABS: Urine Bilirubin Dipstick 1 mg/dL (Negative)
[2024-09-16 19:00] LABS: Ketone-Dipstick 150 mg/dl (Negative)
[2024-09-16 19:03] LABS: Bacteria 2+ /hpf (None Seen); Red Blood Cells-Urine > 100 SEEN /hpf (0-5); Squamous Epithelial Cells - UA 0-5 SEEN /hpf (5-10); White Blood Cells 0-5 SEEN /hpf (0-5)
[2024-09-16 20:00] VITALS: BP 154/67; PULSE 80; RESP 18; TEMP 36.8; O2SAT 98
== END 2024-09-16 20:04 | disposition home or self-care (01) ==
PROVIDERS: Emergency Provider Emergency Medicine; PCP Nurse Practitioner Family; Visit Provider Emergency Medicine
DX: R10.2 Pelvic and perineal pain (principal); F31.9 Bipolar disorder, unspecified; N80.9 Endometriosis, unspecified; F17.210 Nicotine dependence, cigarettes, uncomplicated; F17.290 Nicotine dependence, other tobacco product, uncomplicated
CPT/HCPCS: 80048; 81001; 84703; 85025; 96361; 96374; 96375; 96376; 99284; A4216; J2405

== ENCOUNTER 2025-01-14 09:49 | Emergency (ER) | payer MEDICAID, SELFPAY ==
[2025-01-14 09:49] VITALS: BP 166/91; PULSE 91; RESP 20; TEMP 36.2; O2SAT 100; BMI 49.0
--- NOTE | 2025-01-14 10:16 | EX.ED.DYSGE1 ---
HPI History of Present Illness Chief Complaint: Abd Pain Informant: patient Narrative Narrative: Patient is a 34-year-old female with history of PCOS, endometriosis, prior ectopic and exploratory laparoscopy presenting with nausea, vomiting and pelvic pain. Patient states she ended her period 5 days ago. When she has her menstrual cycle she has severe pelvic pain and bleeding. She went to [facility] for the symptoms at that time she was hyperventilating. She states she had EKG and labs. 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 She notices that the bleeding has stopped but she still having constant pelvic pain. She has not had any further vomiting but continues to be very nauseous. She notes after she eats and then radiates to her left flank. She also notes that she has not passed gas or had a bowel movement in 3 days. Her last bowel movement 3 days ago was liquid. She knows she is never had any bowel symptoms with these prior episodes of symptoms. She has had similar symptoms otherwise with prior ovarian cysts. She had been referred to [facility] but missed [facility] appointments and told they would not reschedule her. She would like a referral for an [facility]. She denies any urinary symptoms including dysuria, hematuria or frequency. Denies any fever or chills. Has not anything for symptoms today. No other complaints or concerns reported at this time. [facility] Medical History PTSD (post-traumatic stress disorder) Bipolar 1 disorder Anxiety Osteoarthritis of right knee Right knee pain Home Medications ?Medication ?Instructions ?Recorded ?Last Taken ?Type ondansetron 4 mg disintegrating 4 mg PO Q8H PRN PRN Nausea #10 tabs 09/16/24 Unknown Rx tablet Allergy/AdvReac Type Severity Reaction Status Date / Time trazodone Allergy Severe Anaphylaxis Verified 01/14/25 09:51 sulfamethoxazole (From Allergy Intermediate Rash Verified 01/14/25 09:51 Bactrim) trimethoprim (From Bactrim) Allergy Intermediate Rash Verified 01/14/25 09:51 aspirin Allergy Swelling Verified 01/14/25 09:51 peanut (peanuts) Allergy Other Verified 01/14/25 09:51 diazepam (From Valium) AdvReac Other Verified 01/14/25 09:51 Family History Mother Heart disease Father Seizures Surgical History H/O laparoscopy History of cholecystectomy Social History household members: spouse and family Smoking Status: Current every day smoker tobacco type: cigarettes and e-cigarettes alcohol intake: never ROS ROS ED Constitutional Constitutional ED: Denies chills or fever(s) Cardiovascular Cardiovascular: Denies chest pain or palpitations Respiratory/Chest Respiratory/Chest: Denies cough Gastrointestinal Gastrointestinal: Reports abdominal pain, constipation, nausea, vomiting and other Details: Previous vomiting earlier this week but that is since resolved. Genitourinary Genitourinary ED: Denies dysuria or hematuria Musculoskeletal Musculoskeletal: Denies arthralgias or myalgias Integumentary Denies rash Neurologic Neurologic: Denies weakness EXAM Physical Exam Const Vital Signs: 01/14/25 09:49 01/14/25 11:36 Temperature 97.1 F L Temperature Source Temporal Pulse Rate 91 65 Respiratory Rate 20 H 14 Blood Pressure 166/91 H 168/69 H Blood Pressure Mean 116 102 Pulse Ox 100 99 Oxygen Delivery Method Room Air Positive well nourished and well developed General Appearance ED: well developed and NAD HEENT Reports moist mucous membranes Eyes PERRL General Eye ED: Negative for pale conjunctiva Neck supple Chest Wall inspection of chest normal and palpation of chest normal Resp normal respiratory effort and clear to auscultation bilaterally Cardio regular rate, regular rhythm and no murmurs GI non-distended GI Narrative: Mild tenderness in the suprapubic region as well as the left lower quadrant. Hypoactive bowel sounds present. Auscultation: hypoactive bowel sounds Palpation: soft; Negative for guarding Back/Spine no CVA tenderness Extremity normal to inspection General Extremety ED: Negative for edema General Extremity: Negative for edema Neuro oriented x3 Sensorium / Orientation: alert Motor Exam: Negative for general weakness Psych mental status grossly normal Skin no rashes or lesions noted and no wounds MDM MDM MDM Narrative Medical decision making narrative: Patient evaluated for recurrent pelvic pain with associated nausea. This has happened with her she has a history of endometriosis and PCOS as well as ruptured ovarian cyst. In addition she is now having constipation and notes she has not passed gas for 3 days. Will obtain lab work given persistent nausea and abdominal pain including CBC, BMP, lipase and liver panel because she has her pain seems to be postprandial. Will obtain urinalysis and urine . Differential includes was not limited to small bowel obstruction, pancreatitis, colitis, diverticulitis, endometriosis flare, ruptured ovarian cyst, ovarian torsion (lower suspicion for this given this is a recurrent issue and pain is postprandial not going on for a week), urinary tract infection, renal colic and pyelonephritis. Lab work largely normal. She has no leukocytosis, anemia and besides mildly elevated glucose of 147 has no laboratory abnormalities on her CMP. Lipase is normal. Urinalysis consistent with some contamination but not infection. test is negative. Low suspicion for ectopic . CT is pending and there is a delay. Patient states she has to leave because she has her sister's car. She is ambulatory. Per report, she did start become irate with staff however is willing to wait for discharge instructions so she can have outpatient OB follow-up. I will contact her with CT results. Patient ambulates out with steady gait. Given the recurrent nature of this and my review of the CT I think this is a reasonable plan. CT did not show any acute process. Nursing staff contacted patient to inform her of this. Lab Data Labs: Laboratory Results - last 24 hr 01/14/25 01/14/25 10:24 12:00 WBC 6.7 RBC 4.24 Hgb 12.8 Hct 38.4 MCV 90.6 MCH 30.2 MCHC 33.3 RDW Std Deviation 51.0 H RDW Coeff of Linda 15.4 H Plt Count 242 MPV 10.4 Immature Gran % (Auto) 0.100 Neut % (Auto) 52.8 Lymph % (Auto) 35.8 [place] % (Auto) 8.5 Eos % (Auto) 2.5 Baso % (Auto) 0.3 Absolute Neuts (auto) 3.5 Absolute Lymphs (auto) 2.39 Nucleated RBC % 0 Sodium 139 Potassium 3.7 Chloride 101 Carbon Dioxide 27.1 Anion Gap 11 BUN 9 Creatinine 0.56 L Estim Creat Clear Calc 219.23 Est GFR (MDRD) Non-Af 121 BUN/Creatinine Ratio 16.0 Glucose 147 H Calcium 8.8 Total Bilirubin 0.23 Direct Bilirubin 0.09 AST 21 ALT 14 Alkaline Phosphatase 66 Total Protein 6.4 Albumin 3.8 Globulin 2.6 Lipase 62 Urine Color Yellow Urine Clarity Sl. Cloudy Urine pH 7.0 Ur Specific [place] 1.010 Urine Protein 30 H Urine Glucose (UA) Normal Urine Ketones 5 H Urine Occult Blood Negative Urine Nitrite Negative Urine Bilirubin Negative Urine Urobilinogen 1 H Ur Leukocyte Esterase 25 H Urine RBC 0 SEEN Urine WBC 0-5 SEEN Ur Squamous Epith Cells 0-5 SEEN Urine Bacteria 1+ Urine Mucus 1+ Urine Test Negative Radiography Diagnostic Testing: Clinical Impression(s) from Imaging Studies Abdomen/Pelvis CT 01/14/25 12:40 IMPRESSION: No acute process is appreciated. Reading Location: [facility] Discharge Plan Triage Chief Complaint: Abd Pain ED Provider: Juliet Aragon Dx/Rx/DC Orders Clinical Impression: Pelvic pain, Nausea Instructions: ED Abdominal Pain Unkn Cause Fem Prescriptions: No Action ondansetron 4 mg tablet,disintegrating 4 mg PO Q8H PRN PRN (Reason: Nausea) Qty: 10 0RF Primary Care Provider: Ursula Silver NP Referrals: Angelita Stroy MD [Med Staff - Active Staff] - Ursula Silver NP, NONPROFIT MANAGER-C [Primary Care Provider] - Activity Restrictions/Additional Instructions: Will contact you with your CT results. Your lab work today was overall reassuring. Continue try to push fluids. If your symptoms progress or hesitate to return the emergency room. Print Language: Luxembourgish Disposition Disposition: Home, Self Care Discharge Date/Time: 01/14/25 13:43
[2025-01-14] MEDS: Ketorolac 15 MG/ML Vial IV (10:24)
[2025-01-14] MEDS: Ondansetron 4 MG/2 ML Vial IV (10:24)
[2025-01-14] MEDS: 0.9% Normal Saline (1000mL) 1,000 ML 999 ML IV (10:24)
[2025-01-14 10:31] LABS: Absolute Lymphocyte Count 2.39 X10^3/uL (0.83-4.51); Absolute Neutrophil Count 3.5 X10^3/uL (2.0-7.7); Basophil# 0.02 X10^3/uL; Basophil% 0.3 % (0-1); Eosinophil# 0.17 X10^3/uL; Eosinophils% 2.5 % (0-5); Hematocrit 38.4 % (37-47); Hemoglobin 12.8 g/dL (12.0-15.0); Lymphocyte # 2.39 X10^3/ul (0.83-4.51); Lymphocyte % 35.8 % (19-41); Mean Corp Hgb Conc 33.3 g/dL (32-36); Mean Corpuscular Hgb 30.2 pg (27.0-32.0); Mean Corpuscular Volume 90.6 fL (81-99); Mean Platelet Vol. 10.4 fl (6.2-12.0); Monocyte# 0.57 X10^3/uL; Monocyte% 8.5 % (0-10); NRBC Flagged by Analyzer 0 % (0-5); Neutrophil # 3.52 X10^3/uL (2.7-7.7); Neutrophil % 52.8 % (47-70); Platelet Count 242 K/mm3 (150-450); RBC Distribution Width CV 15.4 % (11.6-14.6); Red Blood Count 4.24 M/mm3 (4.2-5.4); White Blood Count 6.7 K/mm3 (4.4-11.0)
[2025-01-14 10:50] LABS: AST(SGOT) 21 U/L (<=31); Alanine Aminotransfer ALT/SGPT 14 U/L (<=34); Albumin, Serum 3.8 g/dL (3.5-5.0); Alkaline Phosphatase 66 U/L (35-104); Anion Gap 11 (5-15); BUN 9 mg/dL (4-19); Bilirubin, Direct 0.09 mg/dL (0.00-0.30); Calcium,Total 8.8 mg/dL (7.6-11.0); Carbon Dioxide 27.1 mmol/L (21.0-32.0); Chloride 101 mmol/L (98-108); Creatinine, Serum 0.56 mg/dL (0.70-1.20); EST Glomerular Filtration Rate 121 (>60); Estimated Creatinine Clearance 219.23 ml/min (50-250); Globulin 2.6 g/dL (2.2-4.2); Glucose 147 mg/dL (70-99); Lipase 62 U/L (13-75); Potassium 3.7 mmol/L (3.3-5.1); Protein, Total 6.4 g/dL (5.9-8.4); Sodium Level 139 mmol/L (133-145); Total Bilirubin 0.23 mg/dL (0.00-1.30)
[2025-01-14 11:36] VITALS: BP 168/69; PULSE 65; RESP 14; O2SAT 99
[2025-01-14 12:11] LABS: Red Blood Cells-Urine 0 SEEN /hpf (0-5)
[2025-01-14 12:19] LABS: Color, Urine Yellow (Yellow); Glucose, Dipstick Normal (Normal); Ketone-Dipstick 5 mg/dl (Negative); Leukocyte Esterase-Dipstick 25 /ul (Negative); Nitrite-Dipstick Negative (Negative); Occult Blood-Urine Negative /ul (Negative); Protein-Dipstick 30 mg/dl (Negative); Urine Bilirubin Dipstick Negative (Negative); Urine Clarity Sl. Cloudy (Clear); Urine Urobilinogen 1 mg/dl (Normal)
[2025-01-14 12:26] LABS: Bacteria 1+ /hpf (None Seen); Internal QC Validated? YES +Cl - CLEAR BKGD; Mucous, Urine 1+ /hpf (<or=2+); Pregnancy, Urine Negative Negative; Squamous Epithelial Cells - UA 0-5 SEEN /hpf (5-10); White Blood Cells 0-5 SEEN /hpf (0-5)
--- NOTE | 2025-01-14 12:40 | CT_ITS ---
PROCEDURE: ABDOMEN/PELVIS W IV CONT ONLY 01/14/2025 REASON FOR EXAM: ABD PAIN, NAUSEA TECHNIQUE: Abdomen and pelvis CT with intravenous contrast. Coronal and Sagittal reconstruction series were provided. PATIENT PREPARATION: Per protocol ORAL CONTRAST TYPE: None. CONTRAST: None. One or more dose reduction techniques were used (e.g., Automated exposure control, adjustment of the mA and/or kV according to patient size, use of iterative reconstruction technique. RADIATION DOSE SUMMARY: CTDlvol: 24.18 mGy DLP: 1370.21 mGycm COMPARISON: None. FINDINGS: Lung bases: Clear. The liver, spleen, pancreas, adrenals and kidneys are unremarkable. The gallbladder is not identified. Bladder and reproductive organs: Unremarkable Bowel: Normal caliber and otherwise unremarkable Appendix: Not seen but no signs of right lower quadrant inflammatory process. Lymph nodes: No pathologic lymph nodes by size criteria. Vasculature: Unremarkable. Peritoneum / Retroperitoneum: Unremarkable Bones: Unremarkable CT/Abdomen/Pelvis W IV Cont ONLY IMPRESSION: No acute process is appreciated. Reading Location: [facility]
--- NOTE | 2025-01-14 13:42 | NURSING ---
Pt requesting to leave ama. AMA form signed.
--- NOTE | 2025-01-14 14:40 | ED.RN ---
Called pt at Dr Aragon request to let her know CT was negative and to follow up with [facility]ANG[facility] HEL[facility].
== END 2025-01-14 13:43 | disposition home or self-care (01) ==
PROVIDERS: Emergency Provider Emergency Medicine; PCP Nurse Practitioner Family; Visit Provider Emergency Medicine
DX: R10.2 Pelvic and perineal pain (principal); F31.9 Bipolar disorder, unspecified; R11.2 Nausea with vomiting, unspecified; F17.210 Nicotine dependence, cigarettes, uncomplicated; F17.290 Nicotine dependence, other tobacco product, uncomplicated
CPT/HCPCS: 74177; 80048; 80076; 81001; 81025; 83690; 85025; 96361; 96374; 96375; 96376; 99284; Q9967; A4216; J2405

== ENCOUNTER 2025-03-14 18:04 | Emergency (ER) | payer MEDICAID, SELFPAY ==
[2025-03-14 18:05] VITALS: BP 177/85; PULSE 83; RESP 18; TEMP 37; O2SAT 96; BMI 49.5
== END 2025-03-14 18:25 | disposition left against medical advice (07) ==
LOC: ED 18:35
PROVIDERS: PCP Nurse Practitioner Family
DX: Z53.21 Procedure and treatment not carried out due to patient leaving prior to being seen by health care provider (principal)

== ENCOUNTER 2025-03-15 20:57 | Emergency (ER) | payer MEDICAID, SELFPAY ==
[2025-03-15 20:58] VITALS: BP 149/138; PULSE 121; RESP 40; TEMP 36.9; O2SAT 98
[2025-03-15 21:00] VITALS: BMI 47.8
--- NOTE | 2025-03-15 21:43 | ED.RN ---
pt reports she went to her OB on 03/07 and was given a medication to stop her period bleeding in order to insert an IUD. Pt reports large amounts of vaginal bleeding and abdominal cramping since this time.
[2025-03-15 21:58] LABS: Hematocrit 39.4 % (37-47); Hemoglobin 13.4 g/dL (12.0-15.0); Immature Granulocytes Count 0.130 X10^3/uL (0.0-0.0); Mean Corp Hgb Conc 34.0 g/dL (32-36); Mean Corpuscular Volume 87.2 fL (81-99); Mean Platelet Vol. 10.4 fl (6.2-12.0); NRBC Flagged by Analyzer 0 % (0-5); POSITIVE DIFFERENTIAL YES; Platelet Count 382 K/mm3 (150-450); RBC Distribution Width CV 15.4 % (11.6-14.6); RBC Distribution Width SD 49.0 fl (35.1-43.9); Red Blood Count 4.52 M/mm3 (4.2-5.4); White Blood Count 22.5 K/mm3 (4.4-11.0)
[2025-03-15 22:11] LABS: Internal QC Validated? YES +Cl - CLEAR BKGD; Pregnancy, Serum, hCG Quali. NEGATIVE Negative
[2025-03-15 22:12] LABS: Record Kit Lot#, Serum Preg. 0000962302
[2025-03-15 22:19] LABS: AST(SGOT) 28 U/L (<=31); Alanine Aminotransfer ALT/SGPT 15 U/L (<=34); Albumin, Serum 4.3 g/dL (3.5-5.0); Alkaline Phosphatase 88 U/L (35-104); Anion Gap 22 (5-15); BUN 10 mg/dL (4-19); BUN/Creat Ratio 14.7 RATIO (10-20); Calcium,Total 9.5 mg/dL (7.6-11.0); Carbon Dioxide 15.4 mmol/L (21.0-32.0); Chloride 101 mmol/L (98-108); Estimated Creatinine Clearance 170.30 ml/min (50-250); Globulin 3.6 g/dL (2.2-4.2); Glucose 130 mg/dL (70-99); Lipase 25 U/L (13-75); Potassium 3.4 mmol/L (3.3-5.1)
[2025-03-15 22:40] LABS: Differential Indicated SCAN CRITERIA MET
[2025-03-15 22:44] LABS: Differential Comment SCANNED
[2025-03-15 22:57] VITALS: BP 135/84; PULSE 95; RESP 18; O2SAT 97
--- NOTE | 2025-03-15 23:07 | ED.VIS.FEGU ---
HPI HPI - Female History of Present Illness Chief Complaint: Vag Bleeding Narrative Narrative: 34-year-old female presents with vaginal bleeding that she has had for the last 7 days. She relates history that she started seeing Keiko Clarke with the [facility] as her [facility]. Her history and physical is mildly limited because she is writhing around the bed, and standing up. She states that she has had nausea and vomiting. She was put on Aygestin by the [facility] [employer] [facility] to help with vaginal bleeding. She states she is scheduled for a D&C on March 26, approximately 11 days from now. She was taking the Aygestin, but 7 days ago started having vaginal bleeding. Her significant other states that she has been having heavy vaginal bleeding and increased her pad usage from about 4 pads a day to 8. Her pads are always saturated. She has been having lower abdominal pain as well. PFSH PFSH Medical History PTSD (post-traumatic stress disorder) Bipolar 1 disorder Anxiety Osteoarthritis of right knee Right knee pain Home Medications Medication Instructions Recorded Last Taken Type ondansetron 4 mg disintegrating 4 mg PO Q8H PRN PRN Nausea #10 tabs 09/16/24 Unknown Rx tablet Allergy/AdvReac Type Severity Reaction Status Date / Time trazodone Allergy Severe Anaphylaxis Verified 03/15/25 21:00 sulfamethoxazole (From Allergy Intermediate Rash Verified 03/15/25 21:00 Bactrim) trimethoprim (From Bactrim) Allergy Intermediate Rash Verified 03/15/25 21:00 aspirin Allergy Swelling Verified 03/15/25 21:00 peanut (peanuts) Allergy Other Verified 03/15/25 21:00 diazepam (From Valium) AdvReac Other Verified 03/15/25 21:00 Family History Mother Heart disease Father Seizures Surgical History H/O laparoscopy History of cholecystectomy Social History household members: spouse and family Smoking Status: Current every day smoker tobacco type: cigarettes and e-cigarettes alcohol intake: never ROS ROS ED ROS Narrative Review of systems positive for nausea and vomiting. Lower abdominal/pelvic pain. Positive vaginal bleeding for 7 days. No fevers or chills. No dysuria or hematuria. No upper abdominal pain. EXAM Physical Exam Narrative Exam Narrative: Exam is mildly limited secondary to patient writhing around on the cot, standing up and dry heaving into the trash can. Cardiovascular examination reveals mild tachycardia. Lungs are clear to auscultation bilaterally. Abdomen is soft, obese, with minimal lower abdominal tenderness. Neurological examination nonfocal in the lateralizing. Psychiatric examination is mildly manic. Const Vital Signs: 03/15/25 20:58 03/15/25 22:57 03/16/25 00:00 Temperature 98.5 F Temperature Source Oral Pulse Rate 121 H 95 89 Respiratory Rate 40 H 18 18 Blood Pressure 149/138 H 135/84 H 185/106 H Blood Pressure Mean 141 101 132 Pulse Ox 98 97 100 Oxygen Delivery Method Room Air Room Air Room Air MDM MDM MDM Narrative Medical decision making narrative: The differential diagnosis includes but not limited to irregular vaginal bleeding versus ectopic versus mental menorrhagia versus pancreatitis. I reviewed the patient's prior ED visits. She has been seen previously for abdominal pain and required Haldol 2 mg intravenously. In fact, I had seen her previously and ordered laboratory work but she ended up eloping from the emergency department. Blood work was obtained and she does have a leukocytosis of 22.5 which may be demargination from vomiting. Hemoglobin is 13.4 with hematocrit 39.4, and normal although she states that she has been having heavy vaginal bleeding for 7 days. Platelet count normal at 382. CMP is remarkable for slightly elevated anion gap of 22 with a glucose of 130, but she has normal sodium of 139 potassium 3.4, chloride 101, and carbon dioxide is low at 15.4 which may be from hyperventilation causing her anion gap. I do not think she is in diabetic ketoacidosis. LFTs are grossly unremarkable. Lipase normal at 25 so I doubt pancreatitis. Serum is negative. I will defer pelvic examination because on repeat examination after Haldol she is resting comfortably on the cot. She is not having any upper abdominal pain but given her leukocytosis I discussed with her CT imaging of the abdomen and pelvis. I also discussed the patient with Dr. Davies with [facility]. The patient states that she has an appointment tomorrow for pelvic examination and is scheduled for IUD after D&C on March 26, [address] Davies did not have any further suggestions except for to follow-up tomorrow as scheduled and continue the Aygestin regarding the vaginal bleeding. I reviewed the radiology report of the CT of the abdomen pelvis and there is no acute process. Upon repeat examination, she is still resting comfortably but did require 1 dose of morphine and ondansetron. At this point in time, I feel she can be discharged to follow-up with her [employer] [facility] as scheduled tomorrow. They will be able to manage her vaginal bleeding. Return instructions to the emergency department were reviewed. Disposition is discharged home in stable condition. History & Record Review Discussion w/independent historian: Patient Additional record(s) reviewed:: Prior ED visit (Received Haldol previously) Lab Data Attestation: I reviewed the patient's lab results. Labs: Laboratory Results - last 24 hr 03/15/25 21:31 WBC 22.5 H RBC 4.52 Hgb 13.4 Hct 39.4 MCV 87.2 MCH 29.6 MCHC 34.0 RDW Std Deviation 49.0 H RDW Coeff of Linda 15.4 H Plt Count 382 MPV 10.4 Immature Gran % (Auto) 0.600 Neut % (Auto) 74.6 H Lymph % (Auto) 17.0 L [place] % (Auto) 7.7 Eos % (Auto) 0.0 Baso % (Auto) 0.1 Absolute Neuts (auto) 16.8 H Absolute Lymphs (auto) 3.83 Nucleated RBC % 0 Differential Comment SCANNED Platelet Estimate ADEQUATE Sodium 139 Potassium 3.4 Chloride 101 Carbon Dioxide 15.4 L Anion Gap 22 H BUN 10 Creatinine 0.71 Estim Creat Clear Calc 170.30 Est GFR (MDRD) Non-Af 113 BUN/Creatinine Ratio 14.7 Glucose 130 H Calcium 9.5 Total Bilirubin 0.77 AST 28 ALT 15 Alkaline Phosphatase 88 Total Protein 7.8 Albumin 4.3 Globulin 3.6 Albumin/Globulin Ratio 1.2 Lipase 25 Serum , Qual NEGATIVE Radiography Diagnostic Testing: Clinical Impression(s) from Imaging Studies Abdomen/Pelvis CT 03/15/25 23:43 IMPRESSION: No acute findings Reading Location: [place] [id number] Discharge Plan Triage Chief Complaint: Vag Bleeding ED Provider: Jai Arizmendi Dx/Rx/DC Orders Clinical Impression: Vaginal bleeding, Pelvic pain, Leukocytosis Instructions: ED Dysfunctional Uterine Bleeding, ED Pelvic Pain, Unknown Cause Prescriptions: No Action ondansetron 4 mg tablet,disintegrating 4 mg PO Q8H PRN PRN (Reason: Nausea) Qty: 10 0RF Primary Care Provider: Ursula Silver NP Referrals: Keiko Clarke MD [Med Staff - Active Staff] - Keep Natan appointment Ursula Silver NP, [employer] ENGINEER-[employer] [Primary Care Provider] - Activity Restrictions/Additional Instructions: Follow-up with the [facility] as scheduled tomorrow. Continue your Aygestin as previously directed. Print Language: Armenian Disposition Disposition: Home, Self Care
--- NOTE | 2025-03-15 23:43 | CT_ITS ---
PROCEDURE: ABDOMEN/PELVIS W IV CONT ONLY 03/15/2025 REASON FOR EXAM: PAIN, LEUKOCYTOSIS TECHNIQUE: ABDOMEN/PELVIS W IV CONT ONLY Coronal and Sagittal reconstruction series were provided. CONTRAST: Isovue 370 VOLUME: 92 mL One or more dose reduction techniques were used (e.g., Automated exposure control, adjustment of the mA and/or kV according to patient size, use of iterative reconstruction technique. RADIATION DOSE SUMMARY: CTDlvol: 37 mGy DLP: 1426 mGycm COMPARISON: 01/14/2025 FINDINGS: Clear lung bases. Normal heart size. Diffuse hepatic steatosis. Status post cholecystectomy. Normal pancreas, spleen, adrenal glands left kidney. Small simple right renal cyst. No hydronephrosis or ureteral stone. Normal bladder. Unremarkable uterus and ovaries. No retroperitoneal or pelvic adenopathy. No free air. Nondistended bowel. Normal appendix. No acute large bowel findings. No acute abdominal wall findings. CT/Abdomen/Pelvis W IV Cont ONLY IMPRESSION: No acute findings Reading [facility]
[2025-03-16] VITALS: BP 185/106; PULSE 89; RESP 18; O2SAT 100
[2025-03-16 00:43] VITALS: BP 160/90; PULSE 98; RESP 18; TEMP 36.8; O2SAT 100
== END 2025-03-16 00:44 | disposition home or self-care (01) ==
PROVIDERS: Emergency Provider Emergency Medicine; PCP Nurse Practitioner Family; Referring Provider Emergency Medicine; Visit Provider Emergency Medicine
DX: N93.9 Abnormal uterine and vaginal bleeding, unspecified (principal); F31.9 Bipolar disorder, unspecified; D72.829 Elevated white blood cell count, unspecified; F17.210 Nicotine dependence, cigarettes, uncomplicated; F17.290 Nicotine dependence, other tobacco product, uncomplicated
CPT/HCPCS: 74177; 80053; 83690; 84703; 85025; 96374; 96375; 96376; 99283; Q9967; A4216; J2405

== ENCOUNTER 2025-03-16 13:18 | Emergency (ER) | payer MEDICAID, SELFPAY ==
[2025-03-16 13:18] VITALS: BP 163/114; PULSE 100; RESP 18; TEMP 37; O2SAT 99; BMI 47.8
--- NOTE | 2025-03-16 14:43 | ED.RN ---
this nurse observes pt entering and leaving hosptial multiple times before being triaged. while pt waiting for ed room. pt is observed to be thrashing around, screaming, crying, moaning. pt repeatedly inquiring about wait times. pt stating "i am going to lay in that bed in that room" pt is referring to this nurses triage room2. this nurse explains to pt that room is resevered for cardiac related pts and pt requiring oxygen. pt appears to scream and throw head back against wall. pt is hyperventilating and coughing on this nurses desk. pt is asked to cover mouth. pt rolls eyes. this nurse hands pt a emesis bag and a mask and asks pt to return to waiting area. this pt appearing angry storms out of ER triage area into ambulance bay.
== END 2025-03-16 14:50 | disposition left against medical advice (07) ==
LOC: ED 14:50
PROVIDERS: PCP Nurse Practitioner Family
DX: Z53.21 Procedure and treatment not carried out due to patient leaving prior to being seen by health care provider (principal)

== ENCOUNTER 2025-03-31 14:53 | Emergency (ER) | payer MEDICAID, SELFPAY ==
[2025-03-31 14:54] VITALS: BP 160/104; PULSE 110; RESP 18; TEMP 36.8; O2SAT 99; BMI 43.5
--- OUTSIDE RECORDS SUMMARY | 2025-03-31 17:15 | XMS RPT_ITS | CCD ---
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 Role Phone No, Physician Unavailable Unavailable PHYSICAN, NONE Unavailable Unavailable NAYA RIOS Unavailable Unavailable PHYSICAN, NONE Unavailable Unavailable KOBE PAREDES Unavailable Unavailable LATIA VALERIO Unavailable Unavailable NAYA RIOS Unavailable Unavailable NO, PHYSICIAN Unavailable Unavailable Lucia Horan Unavailable No, Physician Primary Care Provider UnavailSAMARIA Gatica Admitting Unavailab SAMARIA Mcdaniel Attending Unavailab radha NO, PHYSICIAN Primary Care Unavailable No, Physician Primary Care Provider UnavailIram Riley MD Primary Care Provider Neeraj PROMOTIONS ASSISTANT, Jenny Attending Unavailable Neeraj PROMOTIONS ASSISTANT, Jenny Referring Unavailable Iram Quiles MD Primary Care Provider [phone] Unavailable Primary Care Provider Unavailabl e NO, PHYSICIAN Primary Care Unavailable VANCE ARCEO Admitting Unavailable VANCE ARCEO Consulting Unavailable VANCE ARCEO Attending Unavailable NO, PHYSICIAN Primary Care Unavailable TIANA BURKETT Attending Unavaila ble SYSTEM, PROVIDER NOT IN Primary Care Unavaila ble SYSTEM, PROVIDER NOT IN Primary Care Unavaila ble SYSTEM, PROVIDER NOT IN Primary Care Unavaila ble CALI EMERSON Attending Unavailable NO, PHYSICIAN Primary Care Unavailable NEUENSCHWANDER II, KAROLINA F. Attending Unav ailable SYSTEM, PROVIDER NOT IN Primary Care Unavaila ble NICKY, IRAM Primary Care Unavailable LINDSAY, ATIF MONIK Referring Unavailable NICKY, IRAM Primary Care Unavailable ROSIBEL KIM Attending Unavailabl e NICKY, IRAM Primary Care Unavailable BELLE MARTINEZ Attending Unavailable NICKY, IRAM Primary Care Unavailable LINDSAY, ATIF CRUZE Attending Unavailable NICKY, IRAM Primary Care Unavailable LINDSAY, ATIF MONIK Attending Unavailable NICKY, IRAM Primary Care Unavailable LINDSAY, ATIF MONIK Attending Unavailable NICKY, IRAM Primary Care Unavailable HARCLERODE, MARTÍN Attending Unavailable GUERRAPAM L Attending Unavailable SELF, SELF Referring Unavailable SELF, SELF Referring Unavailable AHMAD, OBINNA Referring Unavailable BHAGAT, KALE A Attending Unavailable AHMAD, OBINNA Referring Unavailable BHAGAT, KALE A Attending Unavailable AHMAD, OBINNA Attending Unavailable SELF, SELF Referring Unavailable NICKY, IRAM Primary Care Unavailable NICKY, IRAM Primary Care Unavailable LOPEZ MANOJ Attending Unavailable LOPEZ MANOJ Attending Unavailable NICKY, IRAM Primary Care Unavailable MANI ALBA Attending Unavailable NICKY, IRAM Primary Care Unavailable NICKY, IRAM Primary Care Unavailable LALO REYNOSO Attending Unavailable NICKY, IRAM Primary Care Unavailable MAR GRUBER~[id number] CHARLIE Attgeovani nding Unavailable FRANKHOUSER, ANDERW Admitting Unavailable HARCLERODE, MARTÍN Referring Unavailable NICKY, IRAM Primary Care Unavailable NICKY, IRAM Primary Care Unavailable Daniela ZAMBRANO-CPatrick Primary Care Provider Dr. Adi Quezada DO Attending Provider [phone] Dr. Adi Quezada DO Emergency Provider Dr. Juliet Aragon DO Emergency Provider ISABEL BLISS Attending Unavailable ISABEL BLISS Primary Care Unavailable ISABEL BLISS Admitting Unavailable Patrick cMdermott APRN.CNP Primary Care Provider Daniela ZAMBRANO-CPatrick Primary Care Provider [phone] Dr. Juliet Aragon DO Attending Provider Provider, Ed Physician Emergency Provider Jai Barnes MD Referring Provider Jai Arizmendi MD Emergency Provider [phone] PATRICK MCDERMOTT CNP Consulting Unavailable MARY KATE, ISABEL E Primary Care Unavailable PATRICK MCDERMOTT CNP Referring Unavailable MARY KATE, ISABEL E Attending Unavailable MARY KATE, ISABEL E Admitting Unavailable PROVIDER, UNKNOWN Consulting Unavailable PROVIDER, UNKNOWN Consulting Unavailable PATRICK MCDERMOTT CNP Referring Unavailable PATRICK MCDERMOTT CNP Consulting Unavailable KLUEVER, SAMARIA DO Primary Care Unavailable KLUEAINSLEY, SAMARIA DO Attending Unavailable KLBARBRA, SAMARIA DO Admitting Unavailable PROVIDER, UNKNOWN Consulting Unavailable PROVIDER, UNKNOWN Consulting Unavailable PATRICK MCDERMOTT CNP Referring Unavailable PATRICK MCDERMOTT CNP Consulting Unavailable CSERNYIK, ADI DO Primary Care Unavailable CSERNYIK, ADI DO Attending Unavailable CSERNYIK, ADI DO Admitting Unavailable PROVIDER, UNKNOWN Consulting Unavailable PROVIDER, UNKNOWN Consulting Unavailable PATRICK MCDERMOTT CNP Consulting Unavailable MARY KATE, ISABEL E Primary Care Unavailable PATRICK MCDERMOTT CNP Referring Unavailable MARY KATE, ISABEL E Attending Unavailable MARY KATE, ISABEL E Admitting Unavailable PROVIDER, UNKNOWN Consulting Unavailable PROVIDER, UNKNOWN Consulting Unavailable PATRICK MCDERMOTT CNP Consulting Unavailable UNGERER CIERA PROMOTIONS ASSISTANT Primary Care Unavailable UNGHEIDYR, CIERA PROMOTIONS ASSISTANT Attending Unavailable UNGERER, CIERA PROMOTIONS ASSISTANT Admitting Unavailable PROVIDER, UNKNOWN Consulting Unavailable PROVIDER, UNKNOWN Consulting Unavailable PATRICK MCDERMOTT CNP Referring Unavailable PATRICK MCDERMOTT CNP Consulting Unavailable MARY NICOLE DO Primary Care Unavailable MARY NICOLE DO Attending Unavailable MARY NICOLE DO Admitting Unavailable PROVIDER, UNKNOWN Consulting Unavailable PROVIDER, UNKNOWN Consulting Unavailable PATRICK MCDERMOTT CNP Referring Unavailable PATRICK MCDERMOTT CNP Consulting Unavailable MARY KATE, ISABEL E Primary Care Unavailable MARY KATE, ISABEL E Attending Unavailable MARY KATE, ISABEL E Admitting Unavailable PROVIDER, UNKNOWN Consulting Unavailable PROVIDER, UNKNOWN Consulting Unavailable PATRICK MCDERMOTT CNP Referring Unavailable PATRICK MCDERMOTT CNP Consulting Unavailable MARY NICOLE DO Primary Care Unavailable MARY NICOLE DO Attending Unavailable MARY NICOLE DO Admitting Unavailable PROVIDER, UNKNOWN Consulting Unavailable PROVIDER, UNKNOWN Consulting Unavailable PATRICK MCDERMOTT CNP Referring Unavailable PATRICK MCDERMOTT CNP Consulting Unavailable COLE CARRILLO Primary Care Unavailable COLE CARRILLO Attending Unavailable COLE CARRILLO Admitting Unavailable PROVIDER, UNKNOWN Consulting Unavailable PROVIDER, UNKNOWN Consulting Unavailable Daniela PROMOTIONS ASSISTANT, Patrick Primary Care Unavailable Martín Hare Attending Unavailable Alejandro Rene Attending Unavailable Daniela PROMOTIONS ASSISTANT, Patrick Primary Care Unavailable Rejeremy, Jai Attending Unavailable Daniela PROMOTIONS ASSISTANT, Patrick Primary Care Unavailable Adi Quezada Attending Unavailable Daniela PROMOTIONS ASSISTANT, Patrick Primary Care Unavailable Juliet Aragon Attending Unavailable Daniela PROMOTIONS ASSISTANT, Patrick Primary Care Unavailable Reodica, Jai Attending Unavailable Reodica, Jai Referring Unavailable Daniela PROMOTIONS ASSISTANT, Patrick Primary Care Unavailable Provider, Ed Physician Attending Unavailab le Daniela PROMOTIONS ASSISTANT, Patrick Primary Care Unavailable Provider, Ed Physician Attending Unavailab le Daniela PROMOTIONS ASSISTANT, Patrick Primary Care Unavailable Daniela PROMOTIONS ASSISTANT, Patrick Primary Care Unavailable Daniela PROMOTIONS ASSISTANT, Patrick Referring Unavailable Mike Aviles Attending Unavailable Provider, Ed Physician Attending Unavailab le Daniela PROMOTIONS ASSISTANT, Patrick Primary Care Unavailable KEIKO RIOS Attending Unavailable KEIKO RIOS Admitting Unavailable PATRICK MCDERMOTT Primary Care Unavailable PATRICK MCDERMOTT Primary Care Unavailable NORMA CANNON Referring Unavailable KEIKO RIOS Attending Unavailable PATRICK MCDERMOTT Primary Care Unavailable PATRICK MCDERMOTT Primary Care Unavailable MIKALA RIOSECCA Larry Referring Unavailable DANNY BOYER Attending Unavailable SELF Referring Unavailable PATRICK MCDERMOTT Primary Care Unavailable PATRICK MCDERMOTT Primary Care Unavailable RICHARD RIOSCA Larry Referring Unavailable Allergies Allergy Classification Reported Allergen(s) Allergy Type Date of Onset Reaction(s) Facility (5 sources) aspirin; Translations: [ASPIRIN (TARTRAZINE ONLY)] Propensity to adverse reactions to drug 11-05-19 15 Shortness Of Breath, Swelling [facility] (20 sources) traMADol; Translations: [TRAMADOL] Propensity to adverse reactions to drug 06-25-20 16 Hives, Rash, Swelling, Anaphylaxis [facility] (5 sources) aspirin; Translations: [ASPIRIN] Drug Allergy 12-06-19 22 [facility] (1 source) traMADol Drug Allergy [facility] (3 sources) Aluminum aspirin Drug Allergy 07-18-20 11 [facility] Work Phone: (1 source) carrot allergenic extract Drug Allergy 01-31-20 18 [facility] Work Phone: (9 sources) Ketorolac; Translations: [KETOROLAC TROMETHAMINE] Drug Allergy 01-31-20 18 Swelling [facility] Work Phone: (20 sources) Latex; Translations: [LATEX] Propensity to adverse reactions to drug 03-17-20 16 Rash [facility] Work Phone: (3 sources) PEANUT-CONTAINING DRUG PRODUCTS Propensity to adverse reactions to drug 01-31-20 18 [facility] Work Phone: (20 sources) diazePAM; Translations: [DIAZEPAM] Drug Allergy 09-28-19 Other (See Comments), Fainting, Other: See Comments [facility] Comment on above: Possibly passing out (20 sources) Aspirin Drug Allergy 12-06-19 Anaphylaxis, Swelling [facility] Comment on above: Throat swelling (2 sources) Diazepam Propensity to adverse reactions to drug 02-20-20 [facility] ([facility] Ketorolac trometamol Propensity to adverse reactions to drug 01-31-20 18 Swelling [facility] (2 sources) Latex Propensity to adverse reactions to drug 03-17-20 16 [facility] Work Phone: (2 sources) Daucus Carota Propensity to adverse reactions to drug 01-31-20 18 [facility] (13 sources) peanut allergenic extract; Translations: [PEANUT] Drug Allergy 01-15-20 Other: See Comments [facility] (13 sources) Sulfamethoxazole; Translations: [SULFAMETHOXAZOLE] Drug Allergy 01-15-20 Rash [facility] (13 sources) traZODone; Translations: [TRAZODONE] Drug Allergy 01-15-20 Anaphylaxis [facility] (12 sources) Trimethoprim; Translations: [TRIMETHOPRIM] Drug Allergy 01-15-20 [facility] (2 sources) Aspirin Drug Allergy [facility] (2 sources) diazePAM Drug Allergy [facility] (2 sources) Ketorolac Drug Allergy [facility] (2 sources) traZODone Drug Allergy [facility] (8 sources) Carrot Juice; Translations: [CARROT JUICE] Drug Allergy 01-31-20 [facility] (1 source) Aspirin Drug Allergy 03-16-20 [facility] Rep[facility] (1 source) diazePAM Drug Allergy 03-16-20 [facility] (1 source) peanut allergenic extract Drug Allergy 03-16-20 [facility] (1 source) Sulfamethoxazole Drug Allergy 03-16-20 [facility] (1 source) traZODone Drug Allergy 03-16-20 [facility] (1 source) Trimethoprim Drug Allergy 03-16-20 [facility] Repository Medications Current Medications Medication Drug Class(es) Dates Sig (Normalized) Sig (Original) acetaminophen 325 mg / HYDROcodone bitartrate 5 mg oral tablet (5 sources) Opioid Agonist Start: 05-10-2022 End: 05-13-2022 HYDROcodone-acetami nophen (NORCO) 5-325 mg per tablet Indications: Sprain of right knee, unspecified ligament, initial encounter Take 1 tablet by mouth every 6 (six) hours if needed for severe pain for up to 3 days. Max Daily Amount: 4 tablets 12 tablet 0 05/10/2022 05/13/2022 Active Start: 05-10-2022 End: 05-10-2022 HYDROcodone-acetaminophen (N ORCO) 5-325 mg per tablet 1 tablet Start: 01-30-2017 take 1 tablet by ashanti every six hours as needed HYDROcodone-acetaminophen (NORCO) 5-325 mg per tablet Take 1 tablet by mouth every 6 (six) hours as needed for pain. 12 tablet 0 01/30/2017 Active amoxicillin 875 mg oral tablet (4 sources) Penicillin-class Antibacterial Start: 12-05-2021 End: 12-15-2021 take 1 tablet by mouth once amoxicillin (AMOXIL) 875 mg tablet Take 1 tablet (875 mg total) by mouth every 12 (twelve) hours for 10 days. 20 each 0 12/05/2021 12/15/2021 Active take 1 tablet by mouth twice jaime ly amoxicillin (AMOXIL) 500 MG tablet Take 500 mg by mouth 2 (two) times a day. 0 Active cyclobenzaprine hydrochloride 10 mg oral tablet (1 source) Muscle Relaxant Start: 03-22-2018 take 1 tablet by mouth three times daily as needed for muscle spasms cyclobenzaprine 10 MG Tab tablet Take 1 tablet by mouth 3 times daily as needed for Muscle spasms. 21 tablet 0 03/22/2018 Active esomeprazole 40 mg granules for oral suspension (1 source) Proton Pump Inhibitor Start: 02-07-2018 take 1 dose by mouth once daily before breakfast esomeprazole 40 MG Pack Take 1 packet by mouth every morning before breakfast. 30 packet 0 02/07/2018 Active ferrous sulfate 325 mg oral tablet (9 sources) Start: 04-23-2022 End: 06-02-2023 take 1 tablet by mouth once daily at breakfast ferrous sulfate 325 mg (65 mg elemental iron) tablet Indications: Anemia, unspecified type Take 1 tablet (325 mg total) by mouth 1 (one) time each day with breakfast. 30 each 2 06/02/2022 06/02/2023 Active hydrocortisone 5 mg/ml topical cream (1 source) Corticosteroid Start: 04-07-2018 hydrocortisone 0.5 % Cream cream Apply to affected area twice daily until rash resolves 1 Tube 0 04/07/2018 Active hydrOXYzine hydrochloride 25 mg oral tablet (1 source) Antihistamine Start: 04-07-2018 take 1 tablet by mouth three times daily as needed for anxiety hydrOXYzine HCl 25 MG Tab tablet Take 1 tablet by mouth 3 times daily as needed for Anxiety. 30 tablet 0 04/07/2018 Active 5 ml levETIRAcetam 100 mg/ml injection (15 sources) Start: 05-19-2023 levETIRAcetam (KEPPRA) injection 500 mg Start: 05-19-2023 End: 06-02-2023 take 1 tablet by mouth twice daily levETIRAcetam (KEPPRA) 500 mg tablet Take 1 tablet (500 mg total) by mouth 2 (two) times a day for 14 days. 28 each 0 05/19/2023 Active magnesium oxide 400 mg oral tablet (3 sources) Start: 09-26-2023 End: 10-03-2023 take 1 tablet by mouth once daily magnesium oxide (MAG-OX) 400 mg magnesium tablet Take 1 tablet (400 mg total) by mouth 1 (one) time each day for 7 days. 7 tablet 0 09/26/2023 10/03/2023 Active Start: 05-19-2023 End: 05-19-2023 magnesium oxide (MAG-OX) tab let 400 mg naproxen 500 mg oral tablet (5 sources) Nonsteroidal Anti-inflammatory Drug Start: 04-29-2022 End: 05-06-2022 take 1 tablet by mouth twice daily at mealtime naproxen (NAPROSYN) 500 mg tablet Take 1 tablet (500 mg total) by mouth 2 (two) times a day with meals for 7 days. 14 each 0 04/29/2022 05/06/2022 Active Start: 04-29-2022 End: 04-29-2022 take 500 mg by mouth once 500 mg, oral, Once, On Wed at 0308, For 1 dose Start: 04-16-2022 End: 04-23-2022 take 1 tablet by mouth twice daily for pain naproxen (NAPROSYN) 500 mg tablet Take 1 tablet (500 mg total) by mouth 2 (two) times a day if needed for mild pain or moderate pain (with food) for up to 7 days. 14 tablet 0 04/16/2022 04/23/2022 Active Start: 05-25-2019 End: 05-25-2019 naproxen (NAPROSYN) tablet 5 00 mg nicotine 4 mg chewing gum (2 sources) Cholinergic Nicotinic Agonist Start: 06-10-2023 Nicotine 4 MG Gum gum Indications: Tobacco use Take 1 Each by mouth as needed. 20 Each 2 06/10/2023 Active norethindrone acetate 5 mg oral tablet (6 sources) Start: 03-07-2025 take 1 tablet by mouth once daily norethindrone (AYGESTIN) 5 mg tablet Take 1 tablet by mouth once daily. 30 tablet 03/07/2025 Active omeprazole 40 mg delayed release oral capsule (2 sources) Proton Pump Inhibitor Start: 06-10-2023 take 1 capsule by mouth once daily omeprazole [address] capsule Indications: Gastroesophageal reflux disease, unspecified whether esophagitis present Take 1 capsule by mouth daily. 30 capsule 0 06/10/2023 Active promethazine hydrochloride 25 mg oral tablet (2 sources) Phenothiazine Start: 09-26-2023 End: 10-01-2023 take 1 tablet by mouth every eight hours for nausea promethazine (PHENERGAN) 25 mg tablet Take 1 tablet (25 mg total) by mouth every 8 (eight) hours if needed for nausea or vomiting for up to 5 days. 15 tablet 0 09/26/2023 10/01/2023 Active sucralfate 100 mg/ml oral suspension (2 sources) Aluminum Complex Start: 06-10-2023 take 10 mL by mouth at bedtime Sucralfate 1 GM/10ML oral suspension Indications: Gastroesophageal reflux disease, unspecified whether esophagitis present Take 10 mL by mouth before meals & at bedtime. 414 mL 0 06/10/2023 Active sulfamethoxazole 800 mg / trimethoprim 160 mg oral tablet (3 sources) Dihydrofolate Reductase Inhibitor Antibacterial, Sulfonamide Antimicrobial Start: 08-04-2023 End: 08-11-2023 take 1 tablet by mouth every twelve hours sulfamethoxazole-tri methoprim (Bactrim DS) 800-160 mg per tablet Take 1 tablet by mouth every 12 (twelve) hours for 7 days. 14 each 0 08/04/2023 08/11/2023 Active Completed/Discontinued Medications Medication Drug Class(es) Dates Sig (Normalized) Sig (Original) acetaminophen 325 mg oral tablet (2 sources) Start: 05-19-2023 End: 05-19-2023 acetaminophen (TYLENOL) tablet 650 mg Start: 09-14-2020 End: 06-10-2023 take 2 tablets by mouth every six hours as needed acetaminophen (Tylenol) 325 MG tablet Take 2 tablets by mouth every 6 hours as needed for Mild Pain or Moderate Pain (Do not exceed 3g daily). 30 tablet 0 09/14/2020 06/10/2023 Discontinued cephalexin 500 mg oral capsule (6 sources) Cephalosporin Antibacterial Start: 05-20-2024 End: 07-15-2024 take 1 capsule by mouth twice daily Cephalexin 500 mg capsule Discontinued 500 mg PO TWICE A DAY May 20, 2024 12:00am July 15, 2024 8:40pm Start: 11-22-2023 End: 11-29-2023 take 1 capsule by mouth twice daily cephalexin (KEFLEX) 500 mg capsule Take 1 capsule (500 mg total) by mouth 2 (two) times a day for 7 days. 14 each 0 11/22/2023 11/29/2023 Active ciprofloxacin 500 mg oral tablet (4 sources) Quinolone Antimicrobial Start: 05-20-2024 End: 07-15-2024 take 1 tablet by mouth every twelve hours Ciprofloxacin Hcl 500 mg tablet Discontinued 500 mg PO Q12H 10 5 0 May 20, 2024 12:00am July 15, 2024 8:41pm diphenhydrAMINE (7 sources) Histamine-1 Receptor Antagonist Start: 11-24-2023 End: 11-24-2023 diphenhydrAMINE (BENADRYL) injection 25 mg Start: 11-22-2023 End: 11-22-2023 diphenhydrAMINE (BENADRYL) i njection 25 mg Start: 09-27-2023 End: 09-27-2023 diphenhydrAMINE (BENADRYL) i njection 25 mg Start: 08-05-2023 End: 08-05-2023 diphenhydrAMINE (BENADRYL) i njection 25 mg Start: 09-28-2019 End: 09-28-2019 diphenhydrAMINE (BENADRYL) i njection 25 mg Start: 09-28-2019 End: 09-28-2019 diphenhydrAMINE (BENADRYL) i njection 50 mg Start: 01-27-2018 End: 01-27-2018 diphenhydrAMINE (BENADRYL) o ral solid 50 mg 2 ml droperidol 2.5 mg/ml injection (1 source) Dopamine-2 Receptor Antagonist Start: 05-18-2023 End: 05-18-2023 droPERidol (INAPSINE) injection 1.25 mg Start: 05-18-2023 End: 05-18-2023 droPERidol (INAPSINE) inject ion 1.25 mg DULoxetine 30 mg delayed release oral capsule (3 sources) Serotonin and Norepinephrine Reuptake Inhibitor Start: 11-23-2024 End: 03-07-2025 take 1 capsule by mouth once daily DULoxetine (CYMBALTA) 30 mg capsule Take 1 capsule by mouth once daily. 11/23/2024 03/07/2025 Discontinued (Other) Start: 04-07-2018 take 1 capsule by [facility] once daily duloxetine [address] Particles capsule DR Take 1 capsule by mouth daily. Start after completing the 7 day therapy of 30 mg 30 capsule 0 04/07/2018 Active escitalopram 10 mg oral tablet (11 sources) Serotonin Reuptake Inhibitor Start: 05-25-2022 End: 06-10-2023 escitalopram 10 MG tablet Indications: Moderate episode of recurrent major depressive disorder , LUISANA (generalized anxiety disorder) Take half tablet per day for one week. After one week, take one tablet daily. 30 tablet 1 05/25/2022 06/10/2023 Discontinued Start: 09-21-2021 End: 05-18-2023 escitalopram (LEXAPRO) 10 mg tablet 2 ml famotidine 10 mg/ml injection (6 sources) Histamine-2 Receptor Antagonist Start: 11-24-2023 End: 11-24-2023 famotidine (PF) (PEPCID) injection 20 mg Start: 05-19-2023 End: 05-26-2023 take 1 tablet by mouth twice daily famotidine (PEPCID) 20 mg tablet Take 1 tablet (20 mg total) by mouth 2 (two) times a day for 7 days. 14 each 0 05/19/2023 05/26/2023 Active Start: 05-18-2023 End: 05-18-2023 famotidine (PF) (PEPCID) inj ection 20 mg Start: 04-16-2022 End: 04-26-2022 take 1 tablet by mouth twice daily famotidine (PEPCID) 20 mg tablet Take 1 tablet (20 mg total) by mouth 2 (two) times a day for 10 days. 20 tablet 0 04/16/2022 04/26/2022 Active furosemide 20 mg oral tablet (1 source) Loop Diuretic Start: 12-04-2020 End: 06-10-2023 take 1 tablet by mouth once daily furOSEmide (Lasix) 20 MG tablet Take 1 tablet by mouth daily for 5 days. 5 tablet 0 12/04/2020 06/10/2023 Discontinued Haloperidol (3 sources) Typical Antipsychotic Start: 11-24-2023 End: 11-24-2023 haloperidol lactate (HALDOL) injection 2.5 mg Start: 11-22-2023 End: 11-22-2023 haloperidol lactate (HALDOL) injection 2.5 mg Start: 05-18-2023 End: 09-26-2023 haloperidol lactate (HALDOL) injection 5 mg 0.5 ml HYDROmorphone hydrochloride 1 mg/ml prefilled syringe (1 source) Opioid Agonist Start: 05-18-2023 End: 05-18-2023 HYDROmorphone (DILAUDID) injection 0.5 mg ibuprofen 600 mg oral tablet (3 sources) Nonsteroidal Anti-inflammatory Drug Start: 09-14-2020 End: 06-10-2023 ibuprofen (ADVIL,MOTRIN) tablet 600 mg Start: 03-22-2018 take 1 tablet by ashanti th every six hours as needed ibuprofen 600 MG Tab tablet Take 1 tablet by mouth every 6 hours as needed. 30 tablet 0 03/22/2018 Active iopamidoL (ISOVUE-300) 300 mg iodine /mL (61 %) solution 100 mL (1 source) Start: 05-18-2023 End: 05-18-2023 iopamidoL (ISOVUE-300) 300 mg iodine /mL (61 %) solution 100 mL 1 ml ketorolac tromethamine 15 mg/ml cartridge (2 sources) Nonsteroidal Anti-inflammatory Drug, Cyclooxygenase Inhibitor Start: 08-05-2023 End: 08-05-2023 ketorolac (TORADOL) injection 15 mg Start: 09-28-2019 End: 09-28-2019 ketorolac (TORADOL) injectio n 30 mg 1 ml LORazepam 2 mg/ml injection (2 sources) Benzodiazepine Start: 09-27-2023 End: 09-27-2023 LORazepam (ATIVAN) injection 1 mg Start: 09-26-2023 End: 09-26-2023 LORazepam (ATIVAN) injection 1 mg 50 ml magnesium sulfate 40 mg/ml injection (1 source) Start: 09-26-2023 End: 09-26-2023 magnesium sulfate 2 gram/50 mL (4 %) IVPB 2 g meclizine hydrochloride 25 m g oral tablet (3 sources) Antiemetic Start: 04-17-2022 End: 04-17-2022 meclizine (ANTIVERT) tablet 25 mg Start: 04-16-2022 End: 04-23-2022 take 1 tablet by mouth three times daily for dizziness meclizine (ANTIVERT) 12.5 mg tablet Take 1 tablet (12.5 mg total) by mouth 3 (three) times a day if needed for dizziness for up to 7 days. 21 each 0 04/16/2022 04/23/2022 Active medroxyPROGESTERone acetate 10 mg oral tablet (8 sources) Progestin Start: 04-23-2022 End: 06-02-2023 take 1 tablet by mouth once daily medroxyPROGESTERone (PROVERA) 10 mg tablet Indications: Excessive bleeding in premenopausal period Take 1 tablet (10 mg total) by mouth 1 (one) time each day. 14 tablet 0 06/02/2022 06/02/2023 Suspended Start: 01-07-2018 take 1 tablet by ashanti th every twelve hours medroxyPROGESTERone 10 MG Tab Take 1 tablet by mouth every 12 hours. 60 tablet 2 01/07/2018 Active 2 ml metoclopramide 5 mg/ml injection (2 sources) Dopamine-2 Receptor Antagonist Start: 05-18-2023 End: 05-18-2023 metoclopramide (REGLAN) injection 10 mg Start: 09-28-2019 End: 09-28-2019 metoclopramide (REGLAN) inje ction 10 mg nystatin [id number] unt/ml topical cream (1 source) Polyene Antifungal Start: 11-20-2020 End: 06-10-2023 nystatin [id number] UNIT/GM Cream Apply to affected area twice a day 30 g 3 11/20/2020 06/10/2023 Discontinued ondansetron 4 mg disintegrating oral tablet (20 sources) Serotonin-3 Receptor Antagonist Start: 05-20-2024 End: 09-16-2024 take 1 tablet by mouth every eight hours as needed for nausea Ondansetron 4 mg tablet,disintegrat ing Discontinued 4 mg PO EVERY 8 HOURS NEEDED as needed for Nausea 10 0 July 15, 2024 1:00am September 16, 2024 8:55pm Start: 11-24-2023 End: 11-24-2023 ondansetron (PF) (ZOFRAN) in jection 4 mg Start: 11-24-2023 End: 12-01-2023 apply 1 tablet topically every eight hours for nausea ondansetron ODT (ZOFRAN-ODT) 4 mg disintegrating tablet Dissolve 1 tablet (4 mg total) on top of the tongue every 8 (eight) hours if needed for nausea or vomiting for up to 7 days. 20 tablet 0 11/24/2023 12/01/2023 Active Start: 11-22-2023 End: 11-22-2023 ondansetron ODT (ZOFRAN-ODT) disintegrating tablet 4 mg Start: 08-04-2023 End: 08-11-2023 apply 1 tablet topically every eight hours for nausea ondansetron ODT (ZOFRAN-ODT) 4 mg disintegrating tablet Dissolve 1 tablet (4 mg total) on top of the tongue every 8 (eight) hours if needed for nausea or vomiting for up to 7 days. 20 tablet 0 08/04/2023 08/11/2023 Active Start: 08-04-2023 End: 08-04-2023 ondansetron (PF) (ZOFRAN) in jection 4 mg Start: 05-19-2023 End: 05-19-2023 ondansetron (PF) (ZOFRAN) in jection 4 mg Start: 05-19-2023 End: 06-10-2023 take 1 tablet by mouth every eight hours as needed for nausea Ondansetron 4 MG Tab Dispersible tablet Indications: Epigastric pain Take 1 tablet by mouth every 8 hours as needed for Nausea / Vomiting. 30 tablet 0 06/10/2023 Active Start: 05-10-2022 End: 05-17-2022 apply 1 tablet topically every eight hours for nausea ondansetron ODT (ZOFRAN-ODT) 4 mg disintegrating tablet Dissolve 1 tablet (4 mg total) on top of the tongue every 8 (eight) hours if needed for nausea or vomiting for up to 7 days. 20 tablet 0 05/10/2022 05/17/2022 Active Start: 04-17-2022 End: 04-17-2022 ondansetron ODT (ZOFRAN-ODT) disintegrating tablet 4 mg Start: 04-16-2022 End: 04-19-2022 take 1 tablet by mouth every six hours ondansetron (ZOFRAN) 4 mg tablet Take 1 tablet (4 mg total) by mouth every 6 (six) hours for 3 days. 12 tablet 0 04/16/2022 04/19/2022 Active Start: 01-15-2015 take 1 tablet by ashanti th every eight hours as needed ondansetron (ZOFRAN) 4 MG tablet Take 1 tablet (4 mg total) by mouth every 8 (eight) hours as needed for nausea. 10 tablet 0 01/15/2015 Active microencapsulated potassium chloride 20 meq extended release oral tablet (4 sources) Start: 11-24-2023 End: 11-29-2023 potassium chloride (KLOR-CON M20) CR tablet 40 mEq Start: 05-19-2023 End: 05-19-2023 potassium chloride (KLOR-CON M20) CR tablet 20 mEq 2 ml prochlorperazine 5 mg/ml injection (1 source) Phenothiazine Start: 01-27-2018 End: 01-27-2018 prochlorperazine (COMPAZINE) injection 10 mg 1000 ml sodium chloride 9 mg/ml injection (10 sources) Start: 11-24-2023 End: 11-24-2023 sodium chloride 0.9 % bolus 1,000 mL Start: 11-22-2023 End: 11-22-2023 sodium chloride 0.9 % bolus 1,000 mL Start: 09-27-2023 End: 09-27-2023 sodium chloride 0.9 % bolus 1,000 mL Start: 09-26-2023 End: 09-26-2023 sodium chloride 0.9 % bolus 1,000 mL Start: 05-18-2023 End: 05-18-2023 sodium chloride 0.9 % flush 20 mL Start: 05-18-2023 End: 05-18-2023 sodium chloride 0.9 % bolus 1,000 mL Start: 09-28-2019 End: 09-28-2019 sodium chloride 0.9% (NS) refugio william 1,000 mL Start: 09-28-2019 End: 09-28-2019 sodium chloride (PF) (NS) fl ush 5 mL Start: 01-27-2018 End: 01-27-2018 sodium chloride (PF) (NS) fl ush 5 mL sodium chloride (PF) (NS) 0.9 % contrast line flush 10 mL (1 source) Start: 09-28-2019 End: 09-28-2019 sodium chloride (PF) (NS) 0.9 % contrast line flush 10 mL traMADol hydrochloride 50 mg oral tablet (4 sources) Opioid Agonist Start: 05-20-2024 End: 07-15-2024 take 1 tablet by mouth every six hours as needed for pain Tramadol 50 mg tablet Discontinued 50 mg PO EVERY 6 HOURS as needed for moderate pain May 20, 2024 12:00am July 15, 2024 8:41pm traZODone hydrochloride 50 mg oral tablet (1 source) Serotonin Reuptake Inhibitor Start: 04-23-2022 End: 06-10-2023 take 1 tablet by mouth at bedtime as needed for sleep traZODone 50 MG tablet Indications: Other insomnia Take 1 tablet by mouth at bedtime as needed for Sleep. 30 tablet 1 04/23/2022 06/10/2023 Discontinued Problems Active Problems Problem Classification Problem Date Documented Date Episodic/Chronic Abdominal pain (20 sources) Epigastric pain; Translations: [Pelvic and perineal pain] Onset: 12-06-2017 Resolved: 10-06-2020 02-07-2018 Episodic Administrative/socia l admission (4 sources) Patient encounter status; Translations: [Encounter for pre-employment examination] 06-30-2024 Episodic Anxiety disorders (11 sources) Anxiety disorder, unspecified; Translations: [Anxiety] Onset: 03-06-2014 11-22-2023 Chronic Benign neoplasm of uterus (10 sources) Intramural leiomyoma of uterus; Translations: [Intramural leiomyoma of uterus] Onset: 03-07-2025 03-07-2025 Episodic Conditions associated with dizziness or vertigo (2 sources) Lightheadedness; Translations: [Dizziness and giddiness] Onset: 09-27-2023 09-27-2023 Episodic Deficiency and other anemia (1 source) Anemia; Translations: [Anemia, unspecified] Episodic Diseases of white blood cells (2 sources) Leukocytosis; Translations: [Elevated white blood cell count, unspecified] 03-16-2025 Chronic Disorders of lipid metabolism (12 sources) Hypercholesterolemia; Translations: [Pure hypercholesterolemia, unspecified] Onset: 05-19-2023 05-19-2023 Chronic Endometriosis (18 sources) Endometriosis (clinical); Translations: [Endometriosis, unspecified] Onset: 12-27-2017 12-27-2017 Chronic Esophageal disorders (3 sources) Gastroesophageal reflux disease; Translations: [Gastro-esophageal reflux disease without esophagitis] Onset: 06-10-2023 06-10-2023 Chronic Essential hypertension (13 sources) Hypertensive disorder; Translations: [Essential (primary) hypertension] Onset: 05-19-2023 05-19-2023 Chronic Fluid and electrolyte disorders (12 sources) Hypokalemia; Translations: [Hypokalemia] Onset: 11-24-2023 11-24-2023 Episodic Genitourinary symptoms and ill-defined conditions (13 sources) Mixed urinary incontinence; Translations: [Mixed incontinence] Onset: 02-21-2016 01-24-2025 Chronic Headache; including migraine (2 sources) Chronic post-traumatic headache; Translations: [Chronic post-traumatic headache, not intractable] Onset: 10-24-2020 10-24-2020 Chronic Headache; including migraine (1 source) Headache; Translations: [Nonintractable headache, unspecified chronicity pattern, unspecified headache type] Episodic Immunizations and screening for infectious disease (8 sources) Encounter for screening for other viral diseases; Translations: [Patient encounter status] Onset: 01-02-2023 06-17-2023 Episodic Lymphadenitis (1 source) Lymphadenitis; Translations: [Nonspecific lymphadenitis, unspecified] Episodic Malaise and fatigue (1 source) Other fatigue; Translations: [Other fatigue] Onset: 01-11-2025 Episodic Menopausal disorders (2 sources) Menorrhagia; Translations: [Excessive bleeding in the premenopausal period] Chronic Menstrual disorders (17 sources) Irregular periods; Translations: [Irregular menstruation, unspecified] Onset: 06-17-2023 Chronic Mood disorders (6 sources) Depressive disorder; Translations: [Depression] Onset: 03-06-2014 04-12-2017 Chronic Osteoarthritis (10 sources) Osteoarthritis of right knee joint; Translations: [Unilateral primary osteoarthritis, right knee] Onset: 03-07-2025 01-13-2024 Chronic Other endocrine disorders (1 source) Polycystic ovarian syndrome; Translations: [Polycystic ovarian syndrome] Onset: 05-14-2024 Chronic Other female genital disorders (16 sources) Abnormal uterine and vaginal bleeding, unspecified; Translations: [Abnormal uterine bleeding] Onset: 12-06-2017 12-06-2017 Chronic Other female genital disorders (3 sources) Vaginal bleeding; Translations: [Abnormal uterine and vaginal bleeding, unspecified] Chronic Other female genital disorders (4 sources) History of gynecological disorder; Translations: [Personal history of other diseases of the female genital tract] 09-17-2022 Episodic Other female genital disorders (2 sources) Polyp of corpus uteri; Translations: [Polyp of corpus uteri] Onset: 03-16-2025 03-16-2025 Episodic Other female genital disorders (1 source) Recurrent loss; Translations: [Recurrent loss without current ] Onset: 01-24-2025 Episodic Other lower respiratory disease (2 sources) Rib pain; Translations: [Pleurodynia] 08-04-2023 Episodic Other nervous system disorders (3 sources) Carpal tunnel syndrome, left upper limb; Translations: [Carpal tunnel syndrome of left wrist] Onset: 03-06-2014 04-12-2017 Chronic Other non-traumatic joint disorders (4 sources) Pain in right knee; Translations: [Right knee pain] 01-13-2024 Episodic Other nutritional; endocrine; and metabolic disorders (2 sources) Morbid obesity; Translations: [Morbid (severe) obesity due to excess calories] Onset: 10-27-2017 10-27-2017 Chronic Other nutritional; endocrine; and metabolic disorders (20 sources) Body mass index 40+ - severely obese; Translations: [Morbid (severe) obesity due to excess calories] Onset: 05-19-2023 05-19-2023 Chronic Other nutritional; endocrine; and metabolic disorders (2 sources) Severe obesity; Translations: [Morbid (severe) obesity due to excess calories] Onset: 10-27-2017 06-10-2023 Chronic Other nutritional; endocrine; and metabolic disorders (1 source) Hypomagnesemia; Translations: [Hypomagnesemia] 09-26-2023 Chronic Other nutritional; endocrine; and metabolic disorders (1 source) Hypomagnesemia; Translations: [Hypomagnesemia] Onset: 09-26-2023 Chronic Other nutritional; endocrine; and metabolic disorders (1 source) Body mass index (BMI) 45.0-49.9, adult; Translations: [BMI 45.0-49.9, adult (HCC)] Onset: 03-07-2025 Chronic Other screening for suspected conditions (not mental disorders or infectious disease) (1 source) Abnormal findings on diagnostic imaging of other specified body structures; Translations: [Abnormal ultrasound] Onset: 03-22-2025 Chronic Other screening for suspected conditions (not mental disorders or infectious disease) (6 sources) Prolonged QT interval; Translations: [Abnormal electrocardiogram [ECG] [EKG]] Onset: 09-26-2023 09-26-2023 Episodic Other skin disorders (1 source) Foot swelling; Translations: [Foot swelling] Episodic Other skin disorders (1 source) Eruption; Translations: [Rash and other nonspecific skin eruption] 08-05-2023 Episodic Residual codes; unclassified (1 source) History of clinical finding in subject; Translations: [Personal history of other specified conditions] 06-10-2023 Episodic Residual codes; unclassified (1 source) Procedure and treatment not carried out due to patient leaving prior to being seen by health care provider; Translations: [Procedure and treatment not carried out due to patient leaving prior to being seen by health care provider] Onset: 03-21-2025 Episodic Substance-related disorders (20 sources) Cannabis hyperemesis syndrome co-occurrent and due to cannabis abuse; Translations: [Cannabis abuse with other cannabis-induced disorder] Onset: 02-19-2016 Resolved: 05-19-2023 05-19-2023 Chronic Substance-related disorders (12 sources) Marijuana user; Translations: [Cannabis use, unspecified, uncomplicated] Onset: 05-14-2024 07-23-2024 Episodic Unclassified (1 source) PAIN IN LEFT FOOT / M79.672(ICD-10) Onset: 04-19-2017 Unclassified (1 source) UNSPECIFIED SPRAIN LT FOOT INITIAL / S93.602A(ICD-10) Onset: 04-19-2017 Unclassified (1 source) ELEVATED BP READING W/O DX HTN / R03.0(ICD-10) Onset: 04-19-2017 Unclassified (1 source) NICOTINE DEPEND CIGARETTES UNCOMP / F17.210(ICD-10) Onset: 04-19-2017 Unclassified (1 source) CANNABIS DEPENDENCE UNCOMPLICATED / F12.20(ICD-10) Onset: 04-19-2017 Unclassified (1 source) EXPOSURE OTHER SPEC FACTORS INITIAL / X58.XXXA(ICD-10) Onset: 04-19-2017 Unclassified (1 source) ALLERGY STATUS OTH RX MED AND BIO SUBST / Z88.8(ICD-10) Onset: 04-19-2017 Unclassified (1 source) Cyclical vomiting syndrome unrelated to migraine; Translations: [Cyclical vomiting syndrome unrelated to migraine] Onset: 11-22-2023 Unclassified (1 source) Resistant hypertension; Translations: [Resistant hypertension] Onset: 05-19-2023 Unclassified (1 source) Discussion Onset: 03-07-2025 Past or Other Problems Problem Classification Problem Date Documented Da te Episodic/Chronic Allergic reactions (3 sources) Allergy status to analgesic agent status; Translations: [Allergy status to narcotic agent status] Onset: 05-13-2024 Episodic Blindness and vision defects (2 sources) Visual disturbance; Translations: [Unspecified visual disturbance] Onset: 10-24-2020 10-24-2020 Episodic E Codes: Fall (2 sources) Fall; Translations: [Unspecified fall, initial encounter] Onset: 08-04-2023 08-04-2023 Episodic Epilepsy; convulsions (4 sources) Seizure; Translations: [Unspecified convulsions] Onset: 05-19-2023 05-19-2023 Episodic Gastrointestinal hemorrhage (12 sources) Hematemesis; Translations: [Hematemesis] Onset: 05-19-2023 Resolved: 05-19-2023 05-19-2023 Episodic Genitourinary symptoms and ill-defined conditions (3 sources) Microalbuminuria; Translations: [Proteinuria, unspecified] Onset: 12-05-2020 12-05-2020 Episodic Intracranial injury (2 sources) Concussion with no loss of consciousness; Translations: [Concussion without loss of consciousness, initial encounter] Onset: 10-24-2020 10-24-2020 Episodic Mood disorders (2 sources) Mood disorders Onset: 01-04-2018 01-04-2018 Nausea and vomiting (20 sources) Intractable nausea and vomiting; Translations: [Nausea and vomiting] Onset: 02-19-2016 02-07-2018 Episodic Nonspecific chest pain (2 sources) Chest pain, unspecified; Translations: [Chest pain, unspecified] Onset: 05-20-2023 Episodic Other connective tissue disease (10 sources) Fibromyalgia; Translations: [Fibromyalgia] Onset: 10-27-2017 10-27-2017 Episodic Other disorders of stomach and duodenum (13 sources) Cyclical vomiting syndrome; Translations: [Cyclical vomiting syndrome unrelated to migraine] Onset: 05-19-2023 Resolved: 05-19-2023 05-19-2023 Episodic Other ear and sense organ disorders (2 sources) Bilateral subjective tinnitus of ears; Translations: [Tinnitus, bilateral] Onset: 10-24-2020 10-24-2020 Episodic Other female genital disorders (10 sources) History of recurrent miscarriage - not ; Translations: [Recurrent loss] Onset: 12-06-2017 12-06-2017 Episodic Other gastrointestinal disorders (2 sources) Diarrhea, unspecified; Translations: [Diarrhea, unspecified] Onset: 05-30-2023 Episodic Other lower respiratory disease (1 source) Pleurodynia; Translations: [Pleurodynia] Onset: 08-04-2023 Episodic Other skin disorders (1 source) Rash and other nonspecific skin eruption; Translations: [Rash and other nonspecific skin eruption] Onset: 08-05-2023 Episodic Pancreatic disorders (not diabetes) (5 sources) Acute pancreatitis; Translations: [Acute pancreatitis without necrosis or infection, unspecified] Onset: 05-18-2023 05-18-2023 Episodic Residual codes; unclassified (2 sources) Tobacco use and exposure - finding; Translations: [Tobacco use] Onset: 06-10-2023 06-10-2023 Episodic Residual codes; unclassified (2 sources) Tobacco use; Translations: [Tobacco use] Onset: 06-10-2023 Episodic Residual codes; unclassified (2 sources) Personal history of other specified conditions; Translations: [Personal history of other specified conditions] Onset: 06-10-2023 Episodic Residual codes; unclassified (1 source) Acquired absence of other specified parts of digestive tract; Translations: [Acquired absence of other specified parts of digestive tract] Onset: 05-14-2024 Episodic Spondylosis; intervertebral disc disorders; other back problems (2 sources) Backache; Translations: [Dorsalgia, unspecified] Onset: 08-04-2023 08-04-2023 Episodic Sprains and strains (4 sources) Sprain of talofibular ligament of left ankle; Translations: [Sprain of other ligament of left ankle, initial encounter] Onset: 08-05-2023 Episodic Unclassified (1 source) PAIN IN LEFT FOOT; Translations: [PAIN IN LEFT FOOT] Onset: 04-11-2017 Unclassified (1 source) Abnormal uterine bleeding (AUB) Urinary tract infections (13 sources) Pyelonephritis; Translations: [Tubulo-interstitia l nephritis, not specified as acute or chronic] Onset: 01-30-2018 Resolved: 03-21-2020 01-30-2018 Episodic Results Test Name Value Interpretation Reference Range [facility] Tele[facility] (OBGYWM) CECILIA VILLAFUERTE ([id number]* 1990 F [place] Date Time Provider Department 03/28/25 KEIKO RIOS OBGYWM During your visit today, we recorded the following information about you: Shelby Cabrera RN 03/28/2025 11:10 AM Addendum Attempted to call patient regarding surgical pathology report.-benign .Message left for her to return phone call . Dr Rios had left [employer] message for patient stating that we would call her. .................... .................... .................... ............ Doesn't need postop. Recommend f/u in 3 months to see how she is doing w/ the bleeding. MD Chandrika Ferrer Trisha, RN 03/28/2025 11:11 AM Signed Patient notified and appointment rescheduled to 06/26. Mega Villeda RN Allergies As of Date: 03/28/2025 Noted Allergy Reaction ASPIRIN 01/14/2025 7 - Swelling Comments: Throat swelling SULFAMETHOXAZOLE 01/14/2025 2 - Rash TRAZODONE 01/14/2025 10 - Anaphylaxis TRIMETHOPRIM 01/14/2025 2 - Rash CARROT JUICE 01/30/2018 4 - Hives Comments: Pt stated she is allergic to carrots. No rxn specified. DIAZEPAM 01/14/2025 14 - Other: See Comments Comments: Possibly passing out KETOROLAC TROMETHAMINE 01/30/2018 7 - Swelling Comments: my throat swells PEANUT 01/14/2025 14 - Other: See Comments TRAMADOL 06/25/2016 10 - Anaphylaxis LATEX 03/17/2016 2 - Rash Date Reviewed: 03/26/2025 Reviewed by: Mariella Wang RN - Fully Assessed Reason for Visit: Results [95] Prescriptions as of 03/28/2025 - ondansetron orally disintegrating (ZOFRAN ODT) 4 mg disintegrating tablet Take 1 tablet by mouth every 8 hours as needed for nausea/vomiting. Problem List As Of Date 03/28/2025 Noted Resolved Dysmenorrhea [N94.6] 03/07/2025 Abnormal uterine bleeding (AUB) [N93.9] 12/06/2017 BMI 45.0-49.9, adult (HCC) [Z68.42] 03/07/2025 Cigarette smoker [F17.210] 02/19/2016 Anxiety and depression [F41.9, F32.A] 03/06/2014 Endometriosis [N80.9] 12/27/2017 Fibromyalgia [M79.7] 10/27/2017 PONV (postoperative nausea and vomiting) [R11.2*02/19/2016 Hypokalemia [E87.6] 03/07/2025 Marijuana use [F12.90] 03/07/2025 Osteoarthritis of right knee [M17.11] 03/07/2025 Pelvic and perineal pain [R10.2] 12/06/2017 Recurrent loss without current pregna*12/06/2017 Stress incontinence [N39.3] 02/21/2016 Intramural uterine fibroid [D25.1] 03/07/2025 PTSD (post-traumatic stress disorder) [F43.10] 03/21/2025 Urinary incontinence [R32] 03/21/2025 Encounter Status:Closed by MEGA VILLEDA on 03/28/25 [facility] ANES POSTPROC EVALon 025 ANES POSTPROC EVAL HNO ID: [id number] Author: GEREMIAS SERRA MD Service: Anesthesiology Author Type: Anesthesiologist Type: Anesthesia Postprocedure Evaluation Filed: 03/26/2025 12:41 Note Text: POST ANESTHESIA EVALUATION NOTE : 1990 Procedure Summary Date: 03/26/25 Room / Location: [facility] / [place] Anesthesia Start: 736 Anesthesia Stop: 839 Procedures: HYSTEROSCOPY, D AND C (Uterus) INSERTION DEVICE INTRAUTERINE (Uterus) Diagnosis: Abnormal uterine bleeding Dysmenorrhea (Abnormal uterine bleeding [N93.9]) (Dysmenorrhea [N94.6]) Surgeons: Keiko Rios MD Responsible Provider: Geremias Serra MD Anesthesia Type: general ASA Status: 3 Anesthesia Type: general Airway Type: LMA Last Vitals Vitals Value Taken Time BP 170/100 03/26/25 1130 Temp 36 ?C (96.8 ?F) 03/26/25 1030 Pulse 84 03/26/25 1137 Resp 23 03/26/25 1137 SpO2 98 % 03/26/25 1136 Vitals shown include unfiled device data. Post Anesthesia Patient Status Patient Evaluation: PACU. PACU/ICU Patient Condition: stable. Anticipated Disposition: phase 2 then home. Neurological Status: aware and responsive. Pulmonary Status: breathing comfortably on room air Airway Control: returned to baseline unsupported. Cardiovascular Status: stable. Pain Management: clinically adequate - multimodal analgesia pain management approach Postoperative Hydration: acceptable. Intraoperative Events: no significant anesthesia events Post Operative Nausea/Vomiting Status: no significant post operative nausea or vomiting Recommendation: continue current plan of care. Anesthesia Observations No Documentation SIGNATURE: Geremias Serra MD PATIENT NAME: Cecilia Crum DATE: March 26, 2025 TIME: 12:41 PM CSN: [id number] [facility] ANES PRE-OPon 03-26-2025 ANES PRE-OP HNO ID: [id number] Author: GEREMIAS SERRA MD Service: Anesthesiology Author Type: Anesthesiologist Type: Anesthesia Preprocedure Evaluation Filed: 03/26/2025 06:42 Note Text: ANESTHESIOLOGY DAY OF SURGERY NOTE : 1990 Procedure Information Date/Time: 03/26/25 0730 Procedures: HYSTEROSCOPY, D AND C (Uterus) INSERTION DEVICE INTRAUTERINE (Uterus) HYSTEROSCOPY W/ POLYPECTOMY W/ DANDC (Uterus) Location: [place] [address] / [place] Surgeons: Keiko Rios MD Estimated body mass index is 49.62 kg/m? as calculated from the following: Height as of 03/21/25: 175.3 cm (5' 9). Weight as of 03/21/25: 152.4 kg (336 lb). Most recent hematocrit and potassium results: Hematocrit 38.1 03/22/2025 Potassium 3.9 03/22/2025 Relevant Problems Other (+) Osteoarthritis of right knee I - PHYSICAL EVALUATION AIRWAY Patient intubated: No. Tracheostomy tube not present Mallampati: II. TM distance: >3 FB. Neck ROM: full ROM without neurological symptoms. Mouth opening: adequate. Short neck: no. Thick neck: no DENTAL Dental findings: missing tooth/teeth, poor dentition, broken tooth and chipped. Additional comments: Very poor dentition . Additional exam findings: yes. CARDIOVASCULAR Rhythm: regular PULMONARY Breath sounds clear to auscultation. II - ANESTHESIA PLAN ASA Score: 3 Anesthetic Plan: general Airway type: LMA The patient is a current smoker. NPO Status: adequate Beta Heriberto Monitoring Plan Monitoring plan: Standard ASA. Post Procedure Analgesic Plan Postoperative analgesic plan: parenteral or oral opioids and multimodal analgesia. Informed Consent Anesthetic risks, benefits, alternatives, personnel and consent discussed: yes. Patient / Responsible Republican agrees to proceed: yes Patient / Surrogate agrees to blood products: yes DNR status not reviewed with patient and/or family prior to surgery. Significant changes in the patient condition since the History and Physical, not otherwise documented in primary service progress note: no. Potential Anesthesia issues that may suggest increased risk of complications or contraindication to planned procedure: none. Vitals Value Taken Time BP 137/87 03/26/25 0629 Pulse 87 03/26/25 0629 Resp 20 03/26/25 0629 Temp 36 ?C (96.8 ?F) 03/26/25 0629 SpO2 96 % 03/26/25 0629 Facility-Administere d Medications as of 03/26/2025 Medication Dose Route Frequency - [COMPLETED] acetaminophen 1,000 mg tab(s) (TYLENOL) 1,000 mg ORAL Pre-Op Once - [COMPLETED] promethazine 12.5 mg tab(s) (PHENERGAN) 12.5 mg ORAL Pre-Op Once - scopolamine (delivers 1 mg over 3 days) 1 patch (TRANSDERM-SCOP) 1 patch TRANSDERMAL ONCE - scopolamine - VERIFY patch OTHER q 8 H - [START ON 03/27/2025] scopolamine - REMOVE PATCH OTHER ONCE - [COMPLETED] famotidine 20 mg injection (PEPCID) 20 mg INTRAVENOUS Pre-Op Once - lidocaine (PF) 10 mg/mL (1 %) 1-2 mg injection (XYLOCAINE) 0.1-0.2 mL INTRADERMAL PRN - lactated ringers iv infusion 5-30 mL/hr INTRAVENOUS CONTINUOUS - NaCl 0.9% iv flush bag 20 mL INTRAVENOUS PRN Outpatient Medications as of 03/26/2025 Medication Sig - norethindrone (AYGESTIN) 5 mg tablet Take 1 tablet by mouth once daily. I have interviewed and examined the patient. I have reviewed the medical record and/or the pre-anesthesia evaluation, pertinent labs, and test results. This contains updated information obtained within 48 hours of Surgery/Procedure. SIGNATURE: Geremias Serra MD PATIENT NAME: Cecilia Crum DATE: March 26, 2025 TIME: 6:41 AM CSN: [id number] [facility] OPERATIVE NOon 03-26-2025 OPERATIVE NO HNO ID: [id number] Author: KEIKO RIOS MD Service: Gynecology Author Type: Physician Type: Operative Report Filed: 03/26/2025 09:49 Note Text: [employer]ER OPERATIVE/PROCEDURE REPORT LOG ID: [id number] Surgery/Procedure Date: 03/26/2025 Incision/Procedure Start Time: 8:08 AM Incision Close/Procedure End Time: 8:25 AM Surgeon(s)/Procedura list(s) and Medication Tech(s): Surgeons and Role: * Keiko Rios MD - Primary * Siria Sheffield DO - Resident - Assisting * Yesenia Lima DO - Resident - Assisting Informed Consent: Informed Consent obtained and on the chart Procedure: Hysteroscopy with DANDC and IUD insertion Pre-Op/Pre-Procedure Diagnosis: Dysmenorrhea and Irregular bleeding Post-Op/Post-Procedu re Diagnosis: Same as pre-op diagnosis Antibiotic: None Procedure Details: Patient was taken to the operating room where the sign-in and time out were completed. General anesthesia was induced and found to be adequate. She was placed in dorsal lithotomy position with her feet in Yellowfin stirrups with careful attention not to hyperflex or hyperextend the knees or hips. SCDs were placed and turned on for DVT prophylaxis. Examination under anesthesia was performed to ascertain the position of the uterus which noted to be anteverted. Patient was prepped and draped in the usual fashion. A weighted speculum was placed in the patient's vagina with clear visualization of the cervix. The anterior lip of the cervix was grasped with a single tooth tenaculum. The uterus was sounded to 6.5cm. Cervix was dilated to 7 mm with Hegar dilator. A 5 mm 30-degree hysteroscope was introduced under direct visualization, and the uterus was distended with normal saline. Fluid deficit was 570 cc. The hysteroscope was then used for initial survey revealing below findings. The uterine cavity was well visualized. The fallopian tube ostia were visualized bilaterally. Findings: Endometrium: areas of thickened endometrium Endometrial cavity: Normal Polyps: No polyps Fibroids: No fibroids Other: none Additional techniques Include: DANDC: A curette was introduced into the uterus without difficulty. A sharp curettage was performed gently. The endometrium curettings were collected on a telfa dressing. Mirena Lot # [id number] Expiration Date 03/2027 The Mirena was loaded and introduced with minimal effort to the fundus, where the IUD was deployed per trouble dispatcher's instructions. Introducer was removed and IUD strings were trimmed to 3 cm. Instrumentation was removed from the vagina. Distention Media: normal saline IV Fluids: 1L Urine Output: urine not measured in OR due to patient urinating prior to procedure start Estimated Blood Loss: < 10 mL Specimens: Endometrial curettings Implantable Devices: NONE Drains: None Complications: None A digital sweep of the vaginal canal was performed by the Resident and it was ascertained that no instruments or other foreign bodies are retained within the cavity. Sponge, lap, and needle counts were correct times two and the patient was taken to the recovery room with stable vital signs after tolerating the procedure well. SIGNATURE: Yesenia Lima DO PATIENT NAME: Cecilia Crum DATE: March 26, 2025 TIME: 8:51 AM PAGER/CONTACT #: Attending Note I evaluated the patient and personally participated in the whitman components. I agree with the resident's findings and plan as documented and have discussed the case and management of the patient's care with the resident. I was present and scrubbed for the entire case. Keiko Rios MD Signature: Keiko Rios MD Date: 03/26/2025 Time: 9:47 AM Normal [facility] B-HCG SerPl-aCncon 5 HCG.beta subunit Qn m[IU]/mL Normal <5.0 [facility] Comment on above: Order Comment: Speci men Type: BLOOD SPECIMEN Ordering Facility: [facility] Address: [address] [place] [address] Result Comment: Remingtontom aracelisdonya Performed By: #### 2 1198-7 #### [facility] CLIA [id number] [address] [place] [address] [place] Basic metabolic 2000 panelon 03-22-2025 Anion gap [Moles/Vol] 10 mmol/L Normal 8-15 [facility] Comment on above: Order Comment: Speci men Type: FLUID SPECIMEN Ordering Facility: [facility] Address: [address] [place] [address] Performed By: #### H PVHRT #### [facility] CLIA [id number] [address] [place] [address] [place] Calcium [Mass/Vol] 9.3 mg/dL Normal 8.5-10.2 [facility] Comment on above: Order Comment: Speci men Type: FLUID SPECIMEN Ordering Facility: [facility] Address: [address] [place] [address] Performed By: #### H PVHRT #### [facility] CLIA [id number] [address] [place] [address] [place] Chloride [Moles/Vol] 103 mmol/L Normal 98-107 [facility] Comment on above: Order Comment: Speci men Type: FLUID SPECIMEN Ordering Facility: [facility] Address: [address] [place] [address] Performed By: #### H PVHRT #### [facility] CLIA [id number] [address] [place] [address] [place] CO2 [Moles/Vol] 26 mmol/L Normal 22-30 [facility] Comment on above: Order Comment: Speci men Type: FLUID SPECIMEN Ordering Facility: [facility] Address: [address] [place] [address] Performed By: #### H PVHRT #### [facility] [place] [id number] [address] [place] [address] [place] Creatinine [Mass/Vol] 0.57 mg/dL Low 0.58-0.96 [facility] Comment on above: Order Comment: Speci men Type: FLUID SPECIMEN Ordering Facility: [facility] Address: [address] [place] [address] Performed By: #### H PVHRT #### [facility] [place] [id number] [address] [place] [address] [place] eGFRcr SerPlBld CKD-EPI 2020 121 mL/min/1.73m??? Normal >=60 [facility] Comment on above: Order Comment: Speci men Type: FLUID SPECIMEN Ordering Facility: [facility] Address: [address] [place] [address] Result Comment: Shreya mated Glomerular Filtration Rate (eGFR) is calculated using the 2020 CKD-EPI creatinine equation. This equation utilizes serum creatinine, sex, and age as parameters. The creatinine assay has traceable calibration to isotope dilution-mass spectrometry. Refer to KDIGO guidelines for clinical interpretation. In patients with unstable renal function, e.g. those with acute kidney injury, the eGFR may not accurately reflect actual GFR. Performed By: #### H PVHRT #### [facility] [place] [id number] [address] [place] [address] [place] Glucose [Mass/Vol] 123 mg/dL High 74-99 [facility] Comment on above: Order Comment: Speci men Type: FLUID SPECIMEN Ordering Facility: [facility] Address: [address] [place] [address] Result Comment: The [place] [employer] (ADA) provides guidance for cutoff values for fasting glucose and random glucose. The ADA defines fasting as no caloric intake for at least 8 hours. Fasting plasma glucose results between 100 to 125 mg/dL indicate increased risk for diabetes (prediabetes). Fasting plasma glucose results greater than or equal to 126 mg/dL meet the criteria for diagnosis of diabetes. In the absence of unequivocal hyperglycemia, results should be confirmed by repeat testing. In a patient with classic symptoms of hyperglycemia or hyperglycemic crisis, random plasma glucose results greater than or equal to 200 mg/dL meet the criteria for diagnosis of diabetes. Reference: Standards of Medical Care in Diabetes 2016, [place] [employer]. Diabetes Care. 2016.39(Suppl 1). Performed By: #### H PVHRT #### [facility] CLIA [id number] [address] [place] [address] [place] Potassium [Moles/Vol] 3.9 mmol/L Normal 3.7-5.1 [facility] Comment on above: Order Comment: Speci men Type: FLUID SPECIMEN Ordering Facility: [facility] Address: [address] [place] [address] Performed By: #### H PVHRT #### [facility] CLIA [id number] [address] [place] [address] [place] Sodium [Moles/Vol] 139 mmol/L Normal 136-144 [facility] Comment on above: Order Comment: Speci men Type: FLUID SPECIMEN Ordering Facility: [facility] Address: [address] [place] [address] Performed By: #### H PVHRT #### [facility] CLIA [id number] [address] [place] [address] [place] Urea nitrogen [Mass/Vol] 11 mg/dL Normal 7-21 [facility] Comment on above: Order Comment: Speci men Type: FLUID SPECIMEN Ordering Facility: [facility] Address: [address] [place] [address] Performed By: #### H PVHRT #### [facility] CLIA [id number] [address] [place] [address] [place] CBC W Auto Differential pane l (Bld)on 03-22-2025 Basophils (Bld) [#/Vol] 10*3/uL Normal <0.11 C [facility] Comment on above: Order Comment: Speci men Type: FLUID SPECIMEN Ordering Facility: [facility] Address: [address] [place] [address] Performed By: #### H PVHRT #### [facility] CLIA [id number] [address] [place] [address] [place] Basophils/100 WBC (Bld) 0.2 % Normal [facility] Comment on above: Order Comment: Speci men Type: FLUID SPECIMEN Ordering Facility: [facility] Address: [address] [place] [address] Performed By: #### H PVHRT #### [facility] CLIA [id number] [address] [place] [address] [place] Differential cell count method Nom (Bld) Auto Normal [facility] Comment on above: Order Comment: Speci men Type: FLUID SPECIMEN Ordering Facility: [facility] Address: [address] [place] [address] Performed By: #### H PVHRT #### [facility] CLIA [id number] [address] [place] [address] [place] Eosinophils (Bld) [#/Vol] 0.18 10*3/uL Normal <0.46 [facility] Comment on above: Order Comment: Speci men Type: FLUID SPECIMEN Ordering Facility: [facility] Address: [address] [place] [address] Performed By: #### H PVHRT #### [facility] CLIA [id number] [address] [place] [address] [place] Eosinophils/100 WBC (Bld) 1.9 % Normal [facility] Comment on above: Order Comment: Speci men Type: FLUID SPECIMEN Ordering Facility: [facility] Address: [address] [place] [address] Performed By: #### H PVHRT #### [facility] CLIA [id number] [address] [place] [address] [place] Erythrocyte distribution width (RBC) [Ratio] 15.9 % High 11.5-15.0 [facility] Comment on above: Order Comment: Speci men Type: FLUID SPECIMEN Ordering Facility: [facility] Address: [address] [place] [address] Performed By: #### H PVHRT #### [facility] CLIA [id number] [address] [place] [address] [place] Hematocrit (Bld) [Volume fraction] 38.1 % Normal 36.0-46.0 [facility] Comment on above: Order Comment: Speci men Type: FLUID SPECIMEN Ordering Facility: [facility] Address: [address] [place] [address] Performed By: #### H PVHRT #### [facility] CLIA [id number] [address] [place] [address] [place] Hemoglobin (Bld) [Mass/Vol] 12.6 g/dL Normal 11.5-15.5 [facility] Comment on above: Order Comment: Speci men Type: FLUID SPECIMEN Ordering Facility: [facility] Address: [address] [place] [address] Performed By: #### H PVHRT #### [facility] CLIA [id number] [address] [place] [address] [place] Immature granulocytes (Bld) [#/Vol] 0.03 10*3/uL Normal <0.10 [facility] Comment on above: Order Comment: Speci men Type: FLUID SPECIMEN Ordering Facility: [facility] Address: [address] [place] [address] Performed By: #### H PVHRT #### [facility] CLIA [id number] [address] [place] [address] [place] Immature granulocytes/100 WBC (Bld) 0.3 % Normal [facility] Comment on above: Order Comment: Speci men Type: FLUID SPECIMEN Ordering Facility: [facility] Address: [address] [place] [address] Performed By: #### H PVHRT #### [facility] CLIA [id number] [address] [place] [address] [place] Lymphocytes (Bld) [#/Vol] 2.49 10*3/uL Normal 1.00-4.00 [facility] Comment on above: Order Comment: Speci men Type: FLUID SPECIMEN Ordering Facility: [facility] Address: [address] [place] [address] Performed By: #### H PVHRT #### [facility] CLIA [id number] [address] [place] [address] [place] Lymphocytes/100 WBC (Bld) 26.9 % Normal [facility] Comment on above: Order Comment: Speci men Type: FLUID SPECIMEN Ordering Facility: [facility] Address: [address] [place] [address] Performed By: #### H PVHRT #### [facility] CLIA [id number] [address] [place] [address] [place] MCH (RBC) [Entitic mass] 29.9 pg Normal 26.0-34.0 [facility] Comment on above: Order Comment: Speci men Type: FLUID SPECIMEN Ordering Facility: [facility] Address: [address] [place] [address] Performed By: #### H PVHRT #### [facility] CLIA [id number] [address] [place] [address] [place] MCHC (RBC) [Mass/Vol] 33.1 g/dL Normal 30.5-36.0 [facility] Comment on above: Order Comment: Speci men Type: FLUID SPECIMEN Ordering Facility: [facility] Address: [address] [place] [address] Performed By: #### H PVHRT #### [facility] CLIA [id number] [address] [place] [address] [place] MCV (RBC) [Entitic vol] 90.5 fL Normal 80.0-100.0 C [facility] Comment on above: Order Comment: Speci men Type: FLUID SPECIMEN Ordering Facility: [facility] Address: [address] [place] [address] Performed By: #### H PVHRT #### [facility] CLIA [id number] [address] [place] [address] [place] Monocytes (Bld) [#/Vol] 0.68 10*3/uL Normal <0.87 [facility] Comment on above: Order Comment: Speci men Type: FLUID SPECIMEN Ordering Facility: [facility] Address: [address] [place] [address] Performed By: #### H PVHRT #### [facility] CLIA [id number] [address] [place] [address] [place] Monocytes/100 WBC (Bld) 7.3 % Normal C [facility] Comment on above: Order Comment: Speci men Type: FLUID SPECIMEN Ordering Facility: [facility] Address: [address] [place] [address] Performed By: #### H PVHRT #### [facility] CLIA [id number] [address] [place] [address] [place] Neutrophils (Bld) [#/Vol] 5.86 10*3/uL Normal 1.45-7.50 [facility] Comment on above: Order Comment: Speci men Type: FLUID SPECIMEN Ordering Facility: [facility] Address: [address] [place] [address] Performed By: #### H PVHRT #### [facility] CLIA [id number] [address] [place] [address] [place] Neutrophils/100 WBC (Bld) 63.4 % Normal [facility] Comment on above: Order Comment: Speci men Type: FLUID SPECIMEN Ordering Facility: [facility] Address: [address] [place] [address] Performed By: #### H PVHRT #### [facility] CLIA [id number] [address] [place] [address] [place] Nucleated RBC (Bld) [#/Vol] 10*3/uL Normal <0.01 [facility] Comment on above: Order Comment: Speci men Type: FLUID SPECIMEN Ordering Facility: [facility] Address: [address] [place] [address] Performed By: #### H PVHRT #### [facility] CLIA [id number] [address] [place] [address] [place] Nucleated RBC/100 WBC (Bld) [Ratio] 0.0 /100 WBC Normal [facility] Comment on above: Order Comment: Speci men Type: FLUID SPECIMEN Ordering Facility: [facility] Address: [address] [place] [address] Performed By: #### H PVHRT #### [facility] CLIA [id number] [address] [place] [address] [place] Platelet mean volume (Bld) [Entitic vol] 9.9 fL Normal 9.0-12.7 [facility] Comment on above: Order Comment: Speci men Type: FLUID SPECIMEN Ordering Facility: [facility] Address: [address] [place] [address] Performed By: #### H PVHRT #### [facility] CLIA [id number] [address] [place] [address] [place] Platelets (Bld) [#/Vol] 271 10*3/uL Normal 150-400 [facility] Comment on above: Order Comment: Speci men Type: FLUID SPECIMEN Ordering Facility: [facility] Address: [address] [place] [address] Performed By: #### H PVHRT #### [facility] CLIA [id number] [address] [place] [address] [place] RBC (Bld) [#/Vol] 4.21 10*6/uL Normal 3.90-5.20 [facility] Comment on above: Order Comment: Speci men Type: FLUID SPECIMEN Ordering Facility: [facility] Address: [address] [place] [address] Performed By: #### H PVHRT #### [facility] CLIA [id number] [address] [place] [address] [place] WBC (Bld) [#/Vol] 9.26 10*3/uL Normal 3.70-11.00 [facility] Comment on above: Order Comment: Speci men Type: FLUID SPECIMEN Ordering Facility: [facility] Address: [address] [place] [address] Performed By: #### H PVHRT #### [facility] CLIA [id number] [address] [place] [address] [place] HISTORY PHYSICALon HISTORY PHYSICAL HNO ID: [id number] Author: LATIA CARDONA PA-C Service: ? Author Type: Physician Medication Tech Type: H&P Filed: 03/22/2025 12:57 Note Text: [facility] HISTORY AND PHYSICAL EXAMINATION SERVICE DATE: 03/21/2025 SERVICE TIME: 10:20 AM Recording using [employer] system software for draft documentation of the visit was discussed with the patient/authorized videotape sales representative; all questions welcomed and answered. Patient/authorized videotape sales representative agreed to proceed. PRIMARY CARE PHYSICIAN: Patrick Mcdermott APRN.SPRING [employer]ER Assessment Patient has the following medical conditions which may affect baltazar-operative course: 1. BMI 45.0-49.9, adult (HCC) (Z68.42) Body mass index is 49.62 kg/m?. 2. PTSD (post-traumatic stress disorder) (F43.10) - History of PTSD, anxiety, and depression; managed with journaling. - No current suicidal or homicidal ideation. 3. Anxiety and depression (F41.9) - History of PTSD, anxiety, and depression; managed with journaling. - No current suicidal or homicidal ideation. 4. Urinary incontinence, unspecified type (R32) - Chronic urinary incontinence, not on rx. 5. Nicotine dependence, cigarettes, uncomplicated (F17.210) - Smoking since age 11; recently reduced to half a pack per day since February 20 (previously 1.5 packs/day) and working with primary care to quit. - Advised no tobacco or nicotine use on day of surgery. 6. Marijuana use (F12.90) - Uses marijuana 2-3 times per week, primarily smoking. - Advised to avoid marijuana use the week before surgery and strictly no use on day of surgery. ANESTHESIA FINDINGS: Intubation History: No history of difficult intubation. No abnormal airway history Significant Anesthesia Considerations: none Airway History: No history of difficult airway No abnormal airway history Rascon Activity Status Index: METS: Walk indoors, such as around the house (1.75 METs) Do light work around the house, such as dusting or washing dishes (2.70 METs) Take care of self; that is eating, dressing, bathing, using the toilet (2.75 METs) DASI Score: 7.2 Patient denies any chest pain or undue shortness of breath with the above physical activity. Clinical Frailty Scale: 3. Well, with treated comorbid disease STOP-Bang Score: Snores loudly BMI greater than 35 kg/m2 Denies feeling tired, fatigued, or sleepy during the daytime Has not been observed to stop breathing or choking/gasping during sleep Denies having high blood pressure Patient 50 years old or younger Does not have a large neck Non-male patient STOP-Bang Score: 2 I - PHYSICAL EVALUATION AIRWAY Patient intubated: No. Tracheostomy tube not present Mallampati: IV. TM distance: >3 FB. Neck ROM: full ROM without neurological symptoms. Mouth opening: adequate. Short neck: no. Thick neck: no DENTAL Dental findings: missing tooth/teeth. II - ANESTHESIA PLAN Beta Heriberto Monitoring Plan Post Procedure Analgesic Plan Prepared for Surgery: optimally prepared for surgery. -Labs pending (labs 03/15/2025 at [facility] ED visit with leukocytosis of 22.5; ?demargination from vomiting. Hgb 13.4, Hct 39.4, platelets 382) ADDENDUM: March 22, 2025 12:56 PM -Labs reviewed and acceptable for upcoming procedure CONSULTS: Patient does not require consults for optimization at this time Planned Anesthetic: anesthesia choice The Following Tests/Procedures Have Been Initiated: Orders Placed This Encounter CBC diff Standing Status: Future Number of Occurrences: 1 Expected Date: 03/21/2025 Expiration Date: 06/20/2025 BMP Standing Status: Future Number of Occurrences: 1 Expected Date: 03/21/2025 Expiration Date: 06/20/2025 This is a virtual visit using [employer] video visit. It required patient-provider interaction for the medical decision making as documented below. REASON FOR VISIT: Cecilia Crum is a 34 year old female who is scheduled for Procedure(s): HYSTEROSCOPY, D AND C (N/A) INSERTION DEVICE INTRAUTERINE (N/A) HYSTEROSCOPY W/ POLYPECTOMY W/ DANDC (N/A) at the request of Dr. Keiko Rios for consultation. My final recommendation will be communicated back to the requesting physician by way of shared medical record or letter. Subjective The patient has the following: COVID-19 Immunization Status This patient has no relevant Health Maintenance data. CHIEF COMPLAINT: pre op HPI: Patient has been identified by name and date of : Yes Reason for contact: PACC visit Accompanied by: Self Cecilia Crum is a 34-year-old female, with a history of multiple ectopic pregnancies and miscarriages, presenting for preoperative evaluation prior to a scheduled hysteroscopy and DANDC on March 26. Cecilia has a history of 19 pregnancies, all resulting in either ectopic pregnancies or miscarriages, with no gestations progressing beyond 5 weeks and no live bi (more content not included)... Normal [facility] ED MED ADMINISTRATION DETAIL on 03-19-2025 ED MED ADMINISTRATION DETAIL Operations Lead Medication Administration Record [address] [place] [address] [id number] 03/14/2025 Patient: CECILIA SENIOR Sex: Female : 1990 Age: 34y MEASUREMENTS: Wt: 152.0 kg, Ht/Spencer: 69.0 in, BMI: 49.47 ALLERGIES: Valium, aspirin, trazodone Medication Ordered Medication Administration Date/Time 1 of 1 Normal [facility] ED NURSES CLINICAL NOTEon ED NURSES CLINICAL NOTE Nurse Narrative Nurse Clinical Narrative [address] [id number] [facility] [place] [address] [id number] 03/14/2025 19:03:00 Patient: CECILIA SENIOR Sex: Female : 1990 Age: 34y Disposition: Left W/O Being Seen Disposition Decision Time: 19:03/14/2025 Departure Time: 19:03/14/2025 TRIAGE Arrived by private vehicle. Historian: (patient). Accompanied by family. Primary physician (Cristo Mcdermott). Triage time: 19:03/14/2025. Acuity: LEVEL 3. Chief Complaint: VAGINAL BLEED. Onset. (6 days ago). ( scheduled for a Don March 24; Keiko Joaquin at [facility]). ( 8 pads, with large clots the size of golf ball). -- 19:15 03/14/25 MEENU Bey R.N. 19:03/14/25. BP: 198/93 MAP: 128. HR: 105. RR: 19. O2 saturation: 98% Temperature: 98.1 F. Pain level now 10/10. -- 19:15 03/14/25 MEENU Bey R.N. 19:18 03/14/25. SEPSIS SCREEN: NEGATIVE. SIRS criteria negative: heart rate greater than 90. No possible sources of infection. -- 19:18 03/14/25 MEENU Bey R.N. Measurements: 19:03/14/25 Wt: 152.0 kg, Ht/Spencer: 69.0 in, BMI: 49.47 -- 19:03/14/25 MEENU Bey R.N. Medications: Keppra oral: Stopped 03/14/2025. -- 19:16 03/14/25 MEENU Bey R.N.Correction -- 19:16 03/14/25 MEENU Bey R.N. 1 of 3 Nurse Narrative Khai oral: Stopped 03/14/2025. -- 19:16 03/14/25 MEENU Bey R.N.Correction -- 19:16 03/14/25 MEENU Bey R.N. no known home medications -- 19:16 03/14/25 MEENU Bey R.N. 19:09 03/14/25. Preferred Pharmacy: ([facility] -- 19:15 03/14/25 MEENU Bey R.N. Allergies: aspirin -- 19:11 03/14/25 MEENU Bey R.N. trazodone -- 19:11 03/14/25 VANDANAT Farzaneh Bey R.N. Valium -- 19:11 03/14/25 VANDANAT Farzaneh Bey R.N. Home Medications/Allergy Information Source: patient -- 19:11 03/14/25 MEENU Bey R.N. Problems: Endometriosis -- 19:11 03/14/25 MEENU Bey R.N. Fibromyalgia -- 19:03/14/25 MEENU Bey R.N. Anxiety disorder -- 19:03/14/25 MEENU Bey R.N. Depression -- 19:11 03/14/25 MEENU Bey R.N. Seizure Disorder -- 19:11 03/14/25 MEENU Bey R.N. PCOS -- 19:03/14/25 MEENU Bey R.N. Surgeries: ectopic -- 19:11 03/14/25 MEENU Bey R.N. Cholecystectomy -- 19:03/14/25 MEENU Bey R.N. Exploratory laparotomy -- 19:03/14/25 MEENU Bey R.N. History 19:09 03/14/25. PAST MEDICAL HX: Immunizations: up-to-date. LNMP: ( for 3 days). SOCIAL HX: Current every day heavy tobacco smoker- 1 pack per day. Occasional drug use: marijuana. No 2 of 3 Nurse Narrative alcohol use. The patient has not traveled outside the [place] Infectious disease exposure: No infectious disease exposure. ABUSE ASSESSMENT: The patient answered yes to the question(s) Do you feel safe in your home? and no to the question(s) Are you afraid to go home?. Abuse denied. SELF HARM ASSESSMENT: Self harm assessment was performed. The patient answered no to the question(s) Have you recently felt down, depressed, or hopeless? and Do you have thoughts of harming or killing yourself?. FALL RISK ASSESSMENT: Fall risk assessment completed. No risk factors identified. -- 19:15 03/14/25 EDT Farzaneh Bey R.N. Interventions 19:09 03/14/25. Advanced care plan discussed with patient (Full Code). -- 19:03/14/25 EDT Farzaneh Bey R.N. DISPOSITION / DISCHARGE Departure time: 19:18 03/14/2025. The patient left the Emergency Department without being seen by a physician and completion of treatment; patient was accompanied by a medical transcription. The patient appears to be oriented x4 and coherent. The patient left the Emergency Department ambulatory and via private vehicle. -- 21:03/14/25 EDT Ritu Flores R.N. (Electronically signed by Ritu Flores R.N. 03/19/25 11:26:27 EDT) Generated by [facility] 3 of 3 [facility] ED ORDER SHEET (CPOE ONLY)on 03-19-2025 ED ORDER SHEET (CPOE ONLY) Order Sheet Order Sheet [address] [address] [id number] 03/14/2025 Patient: CECILIA SENIOR Sex: Female : 1990 Age: 34y MEASUREMENTS: Wt: 152.0 kg, Ht/Spencer: 69.0 in, BMI: 49.47 ALLERGIES: Valium, aspirin, trazodone MEDICATION/IV/DRIP/F LUID ORDERS Order Description Priority Entered Acknowledged Completed LAB ORDERS Order Description Priority Entered Acknowledged Collected Completed DIAGNOSTIC STUDY ORDERS Order Description Priority Entered Acknowledged Completed STAFF ORDERS Order Description Priority Entered Acknowledged Collected Completed 1 of 1 [facility] ED [facility] [address] [place] [address] [id number] 03/14/2025 Patient: CECILIA SENIOR Sex: Female : 1990 Age: 34y Item Professional Category Description Facility Code Code Quantity Fee Total Grand Total $0.00 1 of 1 [facility] ED VISIT SUMMARYon ED VISIT SUMMARY Visit Overview Visit Overview [address] [place] [address] [id number] 03/14/2025 Patient: CECILIA SENIOR Sex: Female : 1990 Age: 34y 03/19/2025 11:26 AM EDT ED Arrival:19:03 03/14/2025 EDT Status: Recent Travel:no Language:eng Adv Directive: Isolation Status: Ethnicity:N Fall Risk:no risk Infectious Disease Exposure:no Measurements:5'9 / 175.3 Self-Harm Status:risk Sepsis Screen:negative cm 335.0 lb / 152.0 kg Chief Complaint:VAGINAL BLEED, (6 days ago), (8 pads, with large clots the size of golf ball ), (Cristo Mcdermott), and (scheduled for a Don March 24; Keiko Joaquin at [facility]) ALLERGIES aspirin trazodone Valium HOME MEDICATIONS None 1 of 3 Visit Overview PAST MEDICAL HISTORY / PROBLEMS Anxiety disorder Depression Endometriosis Fibromyalgia Immunizations: up-to-date LNMP: ( for 3 days) PCOS Seizure Disorder PAST SURGICAL HISTORY Cholecystectomy ectopic Exploratory laparotomy SOCIAL HISTORY Smoking status: Yes Alcohol use: No Drug use: Yes ED COURSE MEDICATIONS GIVEN IN EMERGENCY DEPARTMENT IV SITE INFORMATION INTAKE OUTPUT REASSESMENT (most recent) VITAL SIGNS First Vitals Last Vitals Temp 19:13 03/14/25 98.1 F Temp 19:13 03/14/25 98.1 F BP 19:13 03/14/25 198/93 BP 19:13 03/14/25 198/93 2 of 3 Visit Overview First Vitals Last Vitals HR 19:13 03/14/25 105 HR 19:13 03/14/25 105 RR 19:13 03/14/25 19 RR 19:13 03/14/25 19 O2 Sat 19:13 03/14/25 98% O2 Sat 19:13 03/14/25 98% Pain 19:13 03/14/25 10 Pain 19:13 03/14/25 10 ETCO2 19:13 03/14/25 ETCO2 19:13 03/14/25 GCS 19:13 03/14/25 GCS 19:13 03/14/25 RTS 19:13 03/14/25 RTS 19:13 03/14/25 PROCEDURES NURSING INTERVENTIONS LABS / STUDIES CLINICAL IMPRESSION 3 of 3 Normal [facility] ED VITALS FLOW SHEETon 03-19 ED VITALS FLOW SHEET Vitals Vital Sign Flow Sheet [address] [address] [id number] 03/14/2025 Patient: CECILIA SENIOR Sex: Female : 1990 Age: 34y Measurements Wt: 152.0 kg, Ht/Spencer: 69.0 in, BMI: 49.47 Measured Time BP MAP HR RR O2Sat ETCO2 Temp Pain GCS RTS 19:13 03/14/2025 198/93 128 105 19 98% 98.1 F 10 1 of 1 Normal [facility] ED MED ADMINISTRATION DETAIL on 03-18-2025 ED MED ADMINISTRATION DETAIL Operations Lead Medication Administration Record [address] [address] [id number] 03/17/2025 Patient: CECILIA SENIOR Sex: Female : 1990 Age: 34y MEASUREMENTS: Wt: 152.4 kg, Ht/Spencer: 69.0 in, BMI: 49.62 ALLERGIES: Valium, aspirin, trazodone Medication Ordered Medication Administration Date/Time IV NS 0.9 % 1000 17:41 03/17 IV NS 0.9 % 1000 mL started in bag#1 1000 mL at Started mL at 500 mL/hr 500 mL/hr via Site# 1. Allergies verified and confirmed 5 rights. IV 17:41 03/17/2025 (NOW x1) patency established. IV site checked: no pain, redness, or swelling. Sera Mijares R.N. IV flushed thoroughly pre-medication administration. Information Stopped reviewed with patient including reason for taking this medication, 19:30 03/17/2025 signs of allergic reaction and precautions. Verbalizes Antony Rios R.N. understanding. - 17:42 Sera Mijares R.N. Scanned 19:30 03/17 Medication Discontinued: bag #1 infused. Total amount infused: 500 mL. IV patency established. IV site checked: no pain, redness, or swelling. IV flushed thoroughly post-medication administration. - 19:42 Antony Rios R.N. KetorOLAC 18:37 03/17 KetorOLAC (Toradol) IVP 15 mg given via Site# 1. Given (Toradol) IVP 15 mg Allergies verified and confirmed 5 rights. IV patency established. IV 18:37 03/17/2025 (NOW x1) site checked: no pain, redness, or swelling. IV flushed thoroughly Jae Rhodes pre-medication administration. IVP given by EMT-P. Information E.M.T.-P. reviewed with patient. Verbalizes understanding. (Pt rates pain Scanned 10/10 in lower abdomen.). Vitals: 18:02 03/17/2025 BP: 126/72 MAP: 90 mmHg. HR: 93 bpm. Medication Wastage: 15 mg wasted. - 18:38 Evelina CortésMBonnyT.-P. 1 of 1 Normal [facility] ED NURSES CLINICAL NOTEon ED NURSES CLINICAL NOTE Nurse Narrative Nurse Clinical Narrative [address] [address] [id number] 03/17/2025 17:10:00 Patient: CECILIA SENIOR Sex: Female : 1990 Age: 34y Disposition: Discharge to Home Disposition Decision Time: 19:34 03/17/2025 Departure Time: 19:36 03/17/2025 TRIAGE Arrived by EMS. Historian: (patient). Accompanied by family. ( KNOWN ECTOPIC WITH DSCHEDULED 03/26). Triage time: 17:13 03/17/2025. Acuity: LEVEL 3. Chief Complaint: ABDOMINAL PAIN and CRAMPS and VAGINAL BLEEDING. Alert. No acute distress. This started today. ( REPORTS PERIOD STARTED 03/07 AGAIN AFTER 02/20 PERIOD). SEPSIS SCREEN: NEGATIVE. SIRS criteria negative. SEVERE SEPSIS SCREEN NEGATIVE. No signs of organ dysfunction present. -- 17:19 03/17/25 EDT Norma Dao R.N. 17:16 03/17/25. HR: 112 bpm. O2 saturation: 96%. -- 17:19 03/17/25 EDT Norma Dao R.N. 17:17 03/17/25. BP: 86/64 MAP: 69 mmHg. HR: 119 bpm. -- 17:03/17/25 EDT Norma Dao R.N. 17:18 03/17/25. BP: 86/64 MAP: 71. HR: 110. RR: 17. O2 saturation: 96% Temperature: 98.5 F. Pain level now 06/01. -- 17:03/17/25 EDT Norma Dao R.N. Measurements: 17:03/17/25 Wt: 152.4 kg, Ht/Spencer: 69.0 in, BMI: 49.62 -- 17:03/17/25 EDT Norma Dao R.N. 1 of 4 Nurse Narrative Medications: norethindrone acetate 5 mg tablet -- 17:30 03/17/25 EDT Norma Dao R.N. duloxetine 30 mg capsule,delayed release -- 17:03/17/25 EDT Norma Dao R.N. 17:13 03/17/25. Preferred Pharmacy: ([facility]). -- 17:03/17/25 EDT Norma Dao R.N. Allergies: aspirin -- 17:03/17/25 EDT Norma Dao R.N. trazodone -- 17:03/17/25 EDT Norma Dao R.N. Valium -- 17:03/17/25 EDT Norma Dao R.N. Problems: PCOS -- 17:15 03/17/25 EDT Norma Feliberto, R.N. Endometriosis -- 17:15 03/17/25 EDT Norma Dao R.N. Fibromyalgia -- 17:15 03/17/25 EDT Norma Dao R.N. Anxiety disorder -- 17:15 03/17/25 VANDANAT Norma Dao R.N. Depression -- 17:15 03/17/25 VANDANAT Norma Dao R.N. Seizure Disorder -- 17:15 03/17/25 VANDANAT Norma Dao R.N. Surgeries: ectopic -- 17:16 03/17/25 EDT Norma Dao R.N. Cholecystectomy -- 17:16 03/17/25 VANDANAT Norma Dao R.N. Exploratory laparotomy -- 17:16 03/17/25 EDT Norma Dao R.N. History 17:03/17/25. PAST MEDICAL HX: Immunizations: up-to-date. LNMP: (). SOCIAL HX: Light tobacco smoker- less than 1/2 a pack per day. Drug use: marijuana. No alcohol use. The patient has not traveled outside the [place] Infectious disease exposure: No infectious disease exposure. 2 of 4 Nurse Narrative ABUSE ASSESSMENT: Abuse denied. No suspicion of abuse. SELF HARM ASSESSMENT: Self harm assessment was performed. The patient answered no to the question(s) Have you recently felt down, depressed, or hopeless? and Do you have thoughts of harming or killing yourself?. FALL RISK ASSESSMENT: Fall risk assessment completed. No risk factors identified. -- 17:19 03/17/25 MEENU Dao R.N. Interventions 17:03/17/25. Identification band on patient. To treatment room. Advanced care plan. Patient does not have advanced directive. -- 17:03/17/25 EDDorian Dao R.N. PHYSICAL ASSESSMENT 17:50 03/17/25. To room via stretcher. Patient gowned. ( pelvic pain and vaginal bleeding since 03/07. Patient reports passing large golf ball size clots). GENERAL / NEURO / PSYCH: Alert. Oriented X 4. Appears in no acute distress. RESPIRATORY: Respirations not labored. Breath sounds within normal limits. CVS: Normal heart rate and rhythm. Capillary refill less than 2 seconds. GI / : Bowel sounds within normal limits. Vaginal bleeding present. ( 8/10 pelvic pain with vaginal bleeding since 03/07/25). EXTREMITIES: No lower extremity edema. SKIN: Skin is warm and dry. -- 18:37 03/17/25 EDT Sera Mijares R.N. NURSING PROGRESS NOTES 17:05 03/17/25. Site #2 started prior to arrival by EMS in the right antecubital space with a 20g angiocath. -- 17:30 03/17/25 EDT Mario CortésPBonny 17:21 03/17/25. Site #1 started in the left antecubital space with an 18g angiocath with aseptic technique and good blood return; 1 attempt. Blood drawn: rainbow set tube(s) and blood bank tube. Labeled in the presence of the patient and sent to the lab. Saline lock flushed with 10 mL saline. -- 17:30 03/17/25 EDT Jae Rhodes E.M.T.-P. 17:31 03/17/25. Patient identifiers checked. Call light placed in reach. Side rails up x 2. Bed placed in lowest position. Brakes of bed on. -- 17:56 03/17/25 EDT Sera Mijares R.N. 17:41 03/17/25. IV NS 0.9 % 1000 mL started in bag#1 1000 mL at 500 mL/hr via Site# 1. Allergies verified and confirmed 5 rights. IV patency established. IV site checked: no pain, redness, or swelling. IV flushed thoroughly 3 of 4 Nurse Narrative (more content not included)... Normal [facility] ED ORDER SHEET (CPOE ONLY)on 03-18-2025 ED ORDER SHEET (CPOE ONLY) Order Sheet Order Sheet [address] [place] [address] [id number] 03/17/2025 Patient: CECILIA SENIOR Sex: Female : 1990 Age: 34y MEASUREMENTS: Wt: 152.4 kg, Ht/Spencer: 69.0 in, BMI: 49.62 ALLERGIES: Valium, aspirin, trazodone MEDICATION/IV/DRIP/F LUID ORDERS Order Description Priority Entered Acknowledged Completed IV NS 0.9 %1000 mL at 500 17:17 03/17/2025 17:30 17:42 mL/hr (NOW x1) Isabel Bliss, 03/17/2025 03/17/2025 Sera Mckinley E.M.T.-P. RBonnyN. KetorOLAC (Toradol) IVP15 mg 18:18 03/17/2025 18:36 18:38 (NOW x1) Isabel Bliss, 03/17/2025 03/17/2025 Jae Mckinley E.M.TBonny-P. EvelinaM.T.-P. Reason for ordering with alerts: Benefits outweigh risks --18:18 03/17/2025 Isabel Bliss D.O. LAB ORDERS Order Description Priority Entered Acknowledged Collected Completed CBC w Diff Stat Stat 17:17 03/17/2025 17:30 03/17/2025 17:30 03/17/2025 Jae Forrest Bryan Parker, D.O. E.MBonnyTBonny-P. E.M.T.-P. 1 of 2 Order Sheet CMP Stat Stat 17:17 03/17/2025 17:30 03/17/2025 17:30 03/17/2025 Jae Forrest Bryan Parker, D.O. E.MBonnyT.-P. E.M.T.-P. Blood Bank Order Stat Stat 17:17 03/17/2025 17:30 03/17/2025 17:30 03/17/2025 Jae Forrest Bryan Parker, D.O. E.MBonnyT.-P. E.M.T.-P. HCG, Quant Serum Stat Stat 17:17 03/17/2025 17:30 03/17/2025 17:30 03/17/2025 Jae Forrest Bryan Parker, D.O. E.MBonnyT.-P. EBonnyM.T.-P. DIAGNOSTIC STUDY ORDERS Order Description Priority Entered Acknowledged Completed STAFF ORDERS Order Description Priority Entered Acknowledged Collected Completed IV Saline Lock 17:17 03/17/2025 17:30 03/17/2025 17:30 03/17/2025 Jae Forrest, Jae Rhodes D.O. E.M.T.-P. E.M.T.-P. [Electronically signed by Isabel Bliss D.O. (03/18/2025 08:19 EDT)] 2 of 2 Normal [facility] ED PHYSICIAN CLINICAL REPORT on 03-18-2025 ED PHYSICIAN CLINICAL REPORT Narrative Physician Clinical Narrative [facility] [address] [place] [address] [id number] 03/17/2025 17:10:00 Patient: CECILIA SENIOR Sex: Female : 1990 Age: 34y Disposition: Discharge to Home Disposition Decision Time: 19:34 03/17/2025 Departure Time: 19:36 03/17/2025 Measurements Wt: 152.4 kg, Ht/Spencer: 69.0 in, BMI: 49.62 Initial Vital Sign Measured Time BP MAP HR RR O2Sat ETCO2 Temp Pain GCS RTS 17:16 03/17/2025 112 96% Time Seen: 17:16 03/17/2025. Arrived- By ambulance. Historian- patient. Independent historian- EMS personnel. HISTORY OF PRESENT ILLNESS Chief Complaint: PELVIC PAIN. This started yesterday patient came in stating she was and she was having increasing bleeding this started yesterday and pain and felt she was having another miscarriage. 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 She states she did not know she was so she had an ultrasound done on Wednesday and they told her she was . And then she had increased pain this afternoon and came into the emergency department by EMS. She also says she is scheduled for a [place] because she keeps having bleeding and is still present. REVIEW OF SYSTEMS EYES: No eye discomfort. CONSTITUTIONAL: No fever or chills. NEUROLOGICAL: No headache. GI: No nausea or vomiting. RESPIRATORY: No cough. 1 of 10 Narrative PAST HISTORY See nurses notes. Anxiety disorder Depression Endometriosis Fibromyalgia PCOS Seizure Disorder Surgeries: Cholecystectomy ectopic Exploratory laparotomy Medications: duloxetine 30 mg capsule,delayed release norethindrone acetate 5 mg tablet Allergies: aspirin trazodone Valium SOCIAL HISTORY Current every day smoker. ADDITIONAL NOTES The nursing notes have been reviewed. PHYSICAL EXAM Appearance: Alert. Oriented X3. No acute distress. HEENT: Normal external inspection. Neck: Neck supple. 2 of 10 Narrative CVS: Heart sounds normal. Respiratory: No respiratory distress. Abdomen: Soft and nontender. Back: Normal external inspection. Skin: Skin warm and dry. Normal skin color. Extremities: Extremities nontender. Neuro: Oriented X 3. Mood/affect normal. LABS, X-RAYS, AND EKG Laboratory Tests: BB ANTIBODY SCREEN Final MAK: 03/17/2025 17:21:00 EDT MsgRcvd: 03/17/2025 18:26 EDT Lab Test Result Reference Status Received Comments 03/17/2025 18:26 ANTIBODY SCR negative negative Final EDT CBC + DIFF Final MAK: 03/17/2025 17:21:00 EDT MsgRcvd: 03/17/2025 17:41 EDT Lab Test Result Reference Status Received Comments 03/17/2025 17:41 CBC-COMPLETE CBC + DIFF Final EDT BLOOD COUNT 03/17/2025 17:41 WBC 9.8 x 10/UL 4.5 - 10.8 Final EDT 03/17/2025 17:41 RBC 4.32 x 10/UL 4.10 - 5.30 Final EDT 03/17/2025 17:41 HEMOGLOBIN 13.4 g/dl 12.0 - 16.0 Final EDT 3 of 10 Narrative Lab Test Result Reference Status Received Comments 03/17/2025 17:41 HEMATOCRIT 38.2 % 34.0 - 46.0 Final EDT 03/17/2025 17:41 MCV 88 fl 80 - 99 Final EDT 03/17/2025 17:41 MCH 31 pg 27 - 33 Final EDT 03/17/2025 17:41 MCHC 35 X10 3 32 - 36 Final EDT 03/17/2025 17:41 RDW/CV 14.8 % 12.0 - 15.6 Final EDT 03/17/2025 17:41 PLATELET 327 x10/UL 150 - 450 Final EDT 03/17/2025 17:41 AUTOMATED MPV 7.6 fl 6.6 - 10.5 Final EDT DIFFERENTIAL 03/17/2025 17:41 NEUT % 58.8 % 46.0 - 76.0 Final EDT 03/17/2025 17:41 LYMPH % 30.3 % 20.0 - 45.0 Final EDT 03/17/2025 17:41 MONOS % 9.6 % 0.0 - 10.0 Final EDT 03/17/2025 17:41 EO % 0.8 % 0.0 - 7.0 Final EDT 03/17/2025 17:41 BASO % 0.5 % 0.0 - 2.0 Final EDT 2.96 x10/UL 03/17/2025 17:41 Lymph # 0.80 - 2.80 Final Above high normal EDT 4 of 10 Narrative Lab Test Result Reference Status Received Comments 03/17/2025 17:41 Neut # 5.73 x10/UL 1.50 - 7.10 Final EDT 03/17/2025 17:41 [place] # 0.94 x10/UL 0.20 - 1.00 Final EDT 03/17/2025 17:41 EO # 0.08 x10/UL 0.00 - 0.50 Final EDT 03/17/2025 17:41 Baso # 0.05 x10/UL 0.00 - 0.10 Final EDT 03/17/2025 17:41 MANUAL DIFF N/A New Order EDT 03/17/2025 17:41 MORPHOLOGY N/A New Order EDT CMP with eGFR Final MAK: 03/17/2025 17:21:00 EDT MsgRcvd: 03/17/2025 18:04 EDT Lab Test Result Reference Status Received Comments COMPREHENSIVE 03/17/2025 CMP with eGFR Final METABOLIC 18:04 EDT PANEL 03/17/2025 SODIUM 141 mmol/l 136 - 145 Final 18:04 EDT 03/17/2025 POTASSIUM 3.5 mmol/L 3.5 - 5.1 Final 18:04 EDT 03/17/2025 CHLORIDE 102 mmol/L 98 - 107 Final 18:04 EDT 03/17/2025 CO2 22.7 mmol/L 21.0 - 32.0 Final 18:04 EDT 5 of 10 Narrative Lab Test Result Reference Status Received Comments 136 mg/dl 03/17/2025 GLUCOSE Above high 74 - 106 (more content not included)... Normal [facility] ED SUPER BILLon 03-18-2025 ED SUPER BILL Superbill [address] [address] [id number] 03/17/2025 Patient: CECILIA SENIOR Sex: Female : 1990 Age: 34y Item Facility Professional Category Description Code Code Quantity Fee Total Drugs Normal Saline 717905 1 $0.00 $0.00 1000cc (174524) Nurse/E/M EMERGENCY 945629 1 $0.00 $0.00 DEPARTMENT VISIT HIGH/URGENT SEVERITY (43974-25) Nurse/IV/IM/Infusion s Hydration 490942 2 $0.00 $0.00 additional hour (63767) Nurse/IV/IM/Infusion s IVP initial 276419 1 $0.00 $0.00 (56543) Grand Total $0.00 Providers Isabel Bliss D.O. 1 of 2 [facility] Chief Complaint PELVIC PAIN. Principal Diagnosis Pelvic pain. Moderate vaginal bleeding. ICD-10 Codes R10.2: Pelvic and perineal pain N93.9: Abnormal uterine and vaginal bleeding, unspecified 2 of 2 Normal [facility] ED VISIT SUMMARYon ED VISIT SUMMARY Visit Overview Visit Overview [address] [address] [id number] 03/17/2025 Patient: CECILIA SENIOR Sex: Female : 1990 Age: 34y 03/18/2025 08:19 AM EDT ED Arrival:17:10 03/17/2025 EDT Status: Recent Travel:no Language:eng Adv Directive:No Isolation Status: Ethnicity:N Fall Risk:no risk Infectious Disease Exposure:no Measurements:5'9 / 175.3 Self-Harm Status:no risk Sepsis Screen:negative cm 336.0 lb / 152.4 kg Chief Complaint:ABDOMINAL CRAMPS, ABDOMINAL PAIN, VAGINAL BLEEDING, (KNOWN ECTOPIC WITH DSCHEDULED 03/26), and (REPORTS PERIOD STARTED 03/07 AGAIN AFTER 02/20 PERIOD) ALLERGIES aspirin trazodone Valium HOME MEDICATIONS 1 of 3 Visit Overview duloxetine 30 mg capsule,delayed release norethindrone acetate 5 mg tablet PAST MEDICAL HISTORY / PROBLEMS Anxiety disorder Depression Endometriosis Fibromyalgia Immunizations: up-to-date LNMP: () PCOS See nurses notes Seizure Disorder PAST SURGICAL HISTORY Cholecystectomy ectopic Exploratory laparotomy SOCIAL HISTORY Smoking status: Yes Alcohol use: No Drug use: Yes ED COURSE MEDICATIONS GIVEN IN EMERGENCY DEPARTMENT 17:41 03/17/25 IV NS 0.9 % 1000 mL 500 mL/hr 18:37 03/17/25 KetorOLAC (Toradol) IVP 15 mg IV SITE INFORMATION INTAKE OUTPUT 2 of 3 Visit Overview REASSESMENT (most recent) 17:50 03/17/25. To room via stretcher. Patient gowned. ( pelvic pain and vaginal bleeding since 03/07. Patient reports passing large golf ball size clots). GENERAL / NEURO / PSYCH: Alert. Oriented X 4. Appears in no acute distress. RESPIRATORY: Respirations not labored. Breath sounds within normal limits. CVS: Normal heart rate and rhythm. Capillary refill less than 2 seconds. GI / : Bowel sounds within normal limits. Vaginal bleeding present. ( 8/ pelvic pain with vaginal bleeding since 03/07/25). EXTREMITIES: No lower extremity edema. SKIN: Skin is warm and dry. VITAL SIGNS First Vitals Last Vitals Temp 17:16 03/17/25 Temp 19:31 03/17/25 BP 17:16 03/17/25 BP 19:03/17/25 122/81 HR 17:16 03/17/25 112 HR 19:31 03/17/25 97 RR 17:16 03/17/25 RR 19:31 03/17/25 O2 Sat 17:16 03/17/25 96% O2 Sat 19:31 03/17/25 Pain 17:16 03/17/25 Pain 19:31 03/17/25 ETCO2 17:16 03/17/25 ETCO2 19:31 03/17/25 GCS 17:16 03/17/25 GCS 19:31 03/17/25 RTS 17:16 03/17/25 RTS 19:03/17/25 PROCEDURES NURSING INTERVENTIONS LABS / STUDIES LABS / STUDIES ORDERED Blood Bank Order CBC w Diff CMP HCG, Quant Serum CLINICAL IMPRESSION MODERATE VAGINAL BLEEDING PELVIC PAIN 3 of 3 Normal [facility] ED VITALS FLOW SHEETon 03-18 ED VITALS FLOW SHEET Vitals Vital Sign Flow Sheet [facility] [address] [place] [id number] 03/17/2025 Patient: CECILIA SENIOR Sex: Female : 1990 Age: 34y Measurements Wt: 152.4 kg, Ht/Spencer: 69.0 in, BMI: 49.62 Measured Time BP MAP HR RR O2Sat ETCO2 Temp Pain GCS RTS 19:31 03/17/2025 122/81 95 97 19:31 03/17/2025 97 99% 19:31 03/17/2025 16 0 18:56 03/17/2025 97 98% 18:51 03/17/2025 98 98% 18:46 03/17/2025 94 97% 18:41 03/17/2025 96 97% 18:36 03/17/2025 95 97% 18:31 03/17/2025 95 97% 18:26 03/17/2025 96 97% 18:21 03/17/2025 104 97% 18:11 03/17/2025 98 98% 18:06 03/17/2025 94 97% 18:02 03/17/2025 126/72 90 93 18:01 03/17/2025 94 97% 1 of 2 Vitals Measured Time BP MAP HR RR O2Sat ETCO2 Temp Pain GCS RTS 17:56 03/17/2025 95 97% 17:51 03/17/2025 97 97% 17:46 03/17/2025 120/80 98 95 17:46 03/17/2025 97 97% 17:41 03/17/2025 100 98% 17:36 03/17/2025 101 98% 17:33 03/17/2025 136/83 99 100 17:31 03/17/2025 100 97% 17:26 03/17/2025 99 98% 17:21 03/17/2025 105 97% 17:18 03/17/2025 86/64 71 110 17 96% 98.5 F 10 17:17 03/17/2025 86/64 69 119 17:16 03/17/2025 112 96% 2 of 2 Normal [facility] BB ANTIBODY SCREENon 025 ANTIBODY SCR Negative Normal negative [facility] Comment on above: Performed By: #### 2 [id number] ####[facility],[address] [place], [place] [id number] CBC + DIFFon 03-17-2025 Baso # 0.05 x10EE3/UL Normal 0.00 - 0.10 [facility] Comment on above: Performed By: #### 2 15837 #### [facility],[address] [place], [place] [id number] Basophils/100 WBC (Bld) 0.5 % Normal 0.0 - 2.0 [facility] Comment on above: Performed By: #### 2 91178 #### [facility],[address] [place] [address] CBC + DIFF Normal [facility] Comment on above: Result Comment: CBC- COMPLETE BLOOD COUNT Performed By: #### 2 71176 #### [facility],[address] [place], [place] [id number] EO # 0.08 x10EE3/UL Normal 0.00 - 0.50 [facility] Comment on above: Performed By: #### 2 75632 #### [facility],[address] [place] [address]856 Eosinophils/100 WBC (Bld) 0.8 % Normal 0.0 - 7.0 [facility] Comment on above: Performed By: #### 2 46240 #### [facility],[address] [place], [place] [phone] Erythrocyte distribution width (RBC) [Ratio] 14.8 % Normal 12.0 - 15.6 [facility] Comment on above: Performed By: #### 2 75916 #### [facility],[address] [place], [place] [phone] Hematocrit (Bld) [Volume fraction] 38.2 % Normal 34.0 - 46.0 [facility] Comment on above: Performed By: #### 2 36671 #### [facility],[address] [place] [address] 74379 Hemoglobin (Bld) [Mass/Vol] 13.4 g/dL Normal 12.0 - 16.0 [facility] Comment on above: Performed By: #### 2 80477 #### [facility],[address] [place] [address] Lymph # 2.96 x10EE3/UL High 0.80 - 2.80 [facility] Comment on above: Performed By: #### 2 05441 #### [facility],[address] [place], [place] [phone] Lymphocytes/100 WBC (Bld) 30.3 % Normal 20.0 - 45.0 [facility] Comment on above: Performed By: #### 2 38703 #### [facility],[address] [place], [place] [phone] MANUAL DIFF N/A Normal [facility] Comment on above: Performed By: #### 2 69412 #### [facility],[address] [place] [address] 79654 MCH (RBC) [Entitic mass] 31 pg Normal 27 - 33 [facility] Comment on above: Performed By: #### 2 10760 #### [facility],[address] [place] [address] 22140 MCHC 35 X10 3 Normal 32 - 36 [facility] Comment on above: Performed By: #### 2 51444 #### [facility],[address] [place] [address] 99888 MCV (RBC) [Entitic vol] 88 fL Normal 80 - 99 [facility] Comment on above: Performed By: #### 2 23147 #### [facility],[address] [place] [address] 63842 [place] # 0.94 x10EE3/UL Normal 0.20 - 1.00 [facility] Comment on above: Performed By: #### 2 15213 #### [facility],[address] [place] [address] 09726 MONOS % 9.6 % Normal 0.0 - 10.0 [facility] Comment on above: Performed By: #### 2 39565 #### [facility],[address] [place] [address] 05998 Morphology Usman (Bld) [Interp] N/A Normal [facility] Comment on above: Performed By: #### 2 96463 #### [facility],[address] [place] [address] 84459 Neut # 5.73 x10EE3/UL Normal 1.50 - 7.10 [facility] Comment on above: Performed By: #### 2 38514 #### [facility],[address] [place] [address] 64870 Neutrophils/100 WBC (Bld) 58.8 % Normal 46.0 - 76.0 [facility] Comment on above: Performed By: #### 2 35935 #### [facility],[address] [place] [address] 49162 PLATELET 327 x10EE3/UL Normal 150 - 450 [facility] Comment on above: Performed By: #### 2 72284 #### [facility],[address] [place] [address] 76371 Platelet mean volume (Bld) [Entitic vol] 7.6 fL Normal 6.6 - 10.5 [facility] Comment on above: Result Comment: AUTO MATED DIFFERENTIAL Performed By: #### 2 07892 #### [facility],[address] [place] [address] 90320 RBC 4.32 x 10EE6/UL Normal 4.10 - 5.30 [facility] Comment on above: Performed By: #### 2 36556 #### [facility],[address] [place] [address] 54967 WBC 9.8 x 10EE3/UL Normal 4.5 - 10.8 [facility] Comment on above: Performed By: #### 2 75470 #### [facility],[address] [place], [place] [phone] CMP with eGFRon 03-17-2025 AGE 34 years Normal [facility] Comment on above: Performed By: #### 2 39474 ####[facility],[address] [place] [address] Albumin [Mass/Vol] 3.7 g/dL Normal 3.4 - 5.0 [facility] Comment on above: Performed By: #### 2 11679 ####[facility],[address] [place] [address] Albumin/Globulin [Mass ratio] 0.9 {ratio} Normal 0.9 - 1.6 [facility] Comment on above: Performed By: #### 2 98159 ####[facility],[address] [place], [place] [phone] ALK PHOS 75 U/L Normal 46 - 116 [facility] Comment on above: Performed By: #### 2 61540 ####[facility],[address] [place], [place] [phone] ALT [Catalytic activity/Vol] 28 U/L Normal 16 - 63 [facility] Comment on above: Performed By: #### 2 66093 ####[facility],[address] [place] [address] 63148 Anion gap [Moles/Vol] 20 mmol/L Normal 10 - 20 [facility] Comment on above: Performed By: #### 2 03483 ####[facility],[address] [place] [address] 70589 AST [Catalytic activity/Vol] 32 U/L Normal 13 - 39 [facility] Comment on above: Performed By: #### 2 79850 ####[facility],[address] [place] [address] 50932 B/C RATIO 13 ratio Normal 0 - 30 [facility] Comment on above: Performed By: #### 2 06259 ####[facility],[address] [place] [address] 25011 Bilirubin [Mass/Vol] 1.1 mg/dL High 0.2 - 1.0 [facility] Comment on above: Performed By: #### 2 67925 ####[facility],[address] [place] [address] 54238 Calcium [Mass/Vol] 9.4 mg/dL Normal 8.5 - 10.1 [facility] Comment on above: Performed By: #### 2 45384 ####[facility],[address] [place], [place] [phone] Chloride [Moles/Vol] 102 mmol/L Normal 98 - 107 [facility] Comment on above: Performed By: #### 2 10439 ####[facility],[address] [place], [place] [phone] CMP with eGFR Normal [facility] Comment on above: Result Comment: COMP REHENSIVE METABOLIC PANEL Performed By: #### 2 60975 ####[facility],[address] [place] [address] 90535 CO2 [Moles/Vol] 22.7 mmol/L Normal 21.0 - 32.0 [facility] Comment on above: Performed By: #### 2 46645 ####[facility],[address] [place] [address] 07335 Creatinine [Mass/Vol] 0.61 mg/dL Normal 0.55 - 1.02 [facility] Comment on above: Performed By: #### 2 52317 ####[facility],[address] [place] [address] 74438 GFR/1.73 sq M.predicted among non-blacks MDRD (S/P/Bld) [Vol rate/Area] mL/min/{1.73_m2} Normal 60 - 999 [facility] Comment on above: Performed By: #### 2 23074 ####[facility],[address] [place] [address] 30600 Result Comment: ACCO RDING TO THE NATIONAL KIDNEY DISEASE EDUCATION PROGRAM(NKDE), A NORMAL eGFR IS A VALUE GREATER THAN OR EQUAL TO 60 ML/MIN/1.73 SQ METERS. CHRONIC KIDNEY DISEASE: <60mL/MIN/1.73 SQ METERS KIDNEY FAILURE: <15mL/MIN/1.73 SQ METERS THIS TEST SHOULD ONLY BE USED FOR PATIENTS 18 YEARS OF AGE AND OLDER. Globulin (S) [Mass/Vol] 4.0 g/dL High 1.5 - 3.8 [facility] Comment on above: Performed By: #### 2 11459 ####[facility],[address] [place] [address] 40907 Glucose [Mass/Vol] 136 mg/dL High 74 - 106 [facility] Comment on above: Performed By: #### 2 19075 ####[facility],[address] [place] [address] 02426 Potassium [Moles/Vol] 3.5 mmol/L Normal 3.5 - 5.1 [facility] Comment on above: Performed By: #### 2 79762 ####[facility],[address] [place] [address] 89047 Protein [Mass/Vol] 7.7 g/dL Normal 6.4 - 8.2 [facility] Comment on above: Performed By: #### 2 94609 ####[facility],[address] [place] [address] 63797 Sodium [Moles/Vol] 141 mmol/L Normal 136 - 145 [facility] Comment on above: Performed By: #### 2 54142 ####[facility],[address] [place] [address] 57095 Urea nitrogen [Mass/Vol] 8 mg/dL Normal 7 - 18 [facility] Comment on above: Performed By: #### 2 24000 ####[facility],[address] [place] [address] 74042 PREG SERUM QUANTon HCG QUANTITATIVE 0 Normal [facility] Comment on above: Result Comment: Refe vincent Range: Male: <5 Female: Non: <5 1 - 7 days : 5 - 50 1 - 2 weeks: 50 - 500 2 - 3 weeks: 100 - 5000 3 - 4 weeks: 500 - 10,000 4 - 5 weeks: 1000 - 50,000 5 - 6 weeks: 10,000 - 100,000 6 - 8 weeks: 15,000 - 200,000 2 - 3 months: 10,000 - 100,000 2ND TRIMESTER 3000-50,000 3RD TRIMESTER 1000-50,000 Performed By: #### 2 28911 ####[facility],[address] [place] [address] 16866 [place] Pelvison 03-16-2025 Indication Abnormal uterine bleeding, Dysmenorrhea, Recurrent loss Impression Anteverted uterus. There is a fluid collection with debris in the lower uterine segment/upper endocervix which has the appearance of an early gestational sac (5 w 4 d) . Two endometrial polyps with vascular flow are seen: 1. Size 5 mm x 3 mm x 3 mm. Posterior 2. Size 7 mm x 4 mm x 6 mm. Posterior Fibroid(s): Size 14 mm x 12 mm x 12 mm. Posterior, intramural, adjacent to the endometrium Right ovary is normal. Left ovary is not visualized. Cul-de-sac is normal with no free fluid. Recommendations Correlate with HCG. If negative, follow up for hysteroscopic management of endometrial polyps as planned. If HCG is positive and increasing, follow up ultrasound to confirm location of sac is recommended as it appears low. Menstrual History LMP on 03/08/2025. Cycle: irregular cycle. Cycle length 14 d to 15 d. Bleeding: dysmenorrhea, menorrhagia Method Transabdominal, transvaginal, 3D ultrasound examination, Color Doppler examination Uterus Uterus: Visualized Uterus position: anteverted, axial Myometrium: heterogeneous, asymmetrically thickened Endometrium: possible WILLIAM gestational sac Cervix details: cystic lesions identified suggesting superficial Nabothian cysts Uterus length 90 mm Uterus width 57 mm Uterus height 51 mm Uterus Vol 137.2 cm Endometrial thickness, total 13.0 mm Fibroids: Fibroids identified Uterine fibroid D1 14 mm Uterine fibroid D2 12 mm Uterine fibroid D3 12 mm Uterine fibroid mean 12.5 mm Uterine fibroid vol 1.011 cm Uterine fibroids findings: Posterior, intramural, adjacent to the endometrium Polyps: Polyps identified Uterine polyp D1 5 mm Uterine polyp D2 3 mm Uterine polyp D3 3 mm Uterine polyp mean 3.7 mm Uterine polyp findings: Posterior Uterine polyp D1 7 mm Uterine polyp D2 4 mm Uterine polyp D3 6 mm Uterine polyp mean 5.7 mm Uterine polyp findings: Posterior Right Ovary Rt ovary: Visualized Rt ovary morphology: premenopausal normal follicular Rt ovary D1 32 mm Rt ovary D2 24 mm Rt ovary D3 17 mm Rt ovary Vol 6.6 cm Left Ovary Lt ovary: Not visualized Cul de Sac Visualized. no free fluid visualized Performed By: Preeti Cuellar RDMS Read By: Jen Bautista M.D. MATERNAL MEDICINE [facility] Radiology Study observation (narrative) [facility] Abdomen/Pelvis W IV Cont ONL Yon 03-15-2025 Abdomen/Pelvis W IV Cont ONLY [facility] Imaging Services [address] [place] [address] [id number] Abdomen/Pelvis W IV Cont ONLY MR#: [id number] Acct: [id number] Name: CECILIA ABBASI Rep #: [id number] : 1990 F 34 From: Kole Escamilla MD PCP: Patrick Mcdermott NP-Fidel Status: REG ER Study: Abdomen/Pelvis W IV Cont ONLY Date of Exam: Exam# [id number] Ordering Dr: Jai Arizmendi MD PROCEDURE: ABDOMEN/PELVIS W IV CONT ONLY 03/15/2025 REASON FOR EXAM: PAIN, LEUKOCYTOSIS TECHNIQUE: ABDOMEN/PELVIS W IV CONT ONLY Coronal and Sagittal reconstruction series were provided. CONTRAST: Isovue 370 VOLUME: 92 mL One or more dose reduction techniques were used (e.g., Automated exposure control, adjustment of the mA and/or kV according to patient size, use of iterative reconstruction technique. RADIATION DOSE SUMMARY: CTDlvol: 37 mGy DLP: 1426 mGycm COMPARISON: 01/14/2025 FINDINGS: Clear lung bases. Normal heart size. Diffuse hepatic steatosis. Status post cholecystectomy. Normal pancreas, spleen, adrenal glands left kidney. Small simple right renal cyst. No hydronephrosis or ureteral stone. Normal bladder. Unremarkable uterus and ovaries. No retroperitoneal or pelvic adenopathy. No free air. Nondistended bowel. Normal appendix. No acute large bowel findings. No acute abdominal wall findings. CT/Abdomen/Pelvis W IV Cont ONLY IMPRESSION: No acute findings Reading Location: [place] [address] CC: PROMOTIONS ASSISTANTRomy Mcdermott; Dr. Jai Arizmendi MD Correctional Maintenance Technician: Signed Normal [facility] Absolute lymphocyte countOrd ered By: Jai Arizmendi on 03-15-2025 Lymphocytes Auto (Unsp spec) [#/Vol] 3.83 10*3/uL 0.83-4.51 [facility] Absolute neutrophil countOrd ered By: Jai Arizmendi on 03-15-2025 Neutrophils (Bld) [#/Vol] 16.8 10*3/uL High 2.0-7.7 [facility] Anion gap in Serum or Plasma Ordered By: Jai Arizmendi on 03-15-2025 Anion gap [Moles/Vol] 22 mmol/L High 5-15 [facility] Automated lymphocyte count a s percentage of total leukocytesOrdered By: Jai Arizmendi on 03-15-2025 Lymphocytes/100 WBC Auto (Unsp spec) 17.0 % Low 19-41 [facility] BUN/creatinine ratioOrdered By: Jai Arizmendi on 03-15-2025 Urea nitrogen/Creatinine [Mass ratio] 14.7 mg/mg 10-20 [facility] Basophil percentageOrdered B y: Jai Arizmendi on 03-15-2025 Basophils/100 WBC (Bld) 0.1 % 0-1 [facility] Bilirubin, totalOrdered By: Jai Arizmendi on 03-15-2025 Bilirubin [Mass/Vol] 0.77 mg/dL 0.00-1.30 [facility] Blood manual differential co mment interpretation (narrative result)Ordered By: Jai Arizmendi on 03-15-2025 Manual differential comment Usman (Bld) [Interp] SCANNED [facility] CBC W/Diff, Automatedon 02-21 PLT EST ADEQUATE Normal ADEQ [facility] Comment on above: Performed By: #### L 400.7600, L400.0001 #### [facility] [address] [place], [address] SMEAR COMMENT SCANNED Normal [facility] Comment on above: Performed By: #### L 400.7600, L400.0001 #### [facility] [address] [place], [address] Carbon dioxide, total [Moles /volume] in Central venous bloodOrdered By: Jai Arizmendi on 03-15-2025 CO2 [Moles/Vol] 15.4 mmol/L Low 21.0-32.0 [facility] Chloride assayOrdered By: Tenzin Arizmendi on 03-15-2025 Chloride [Moles/Vol] 101 mmol/L 98-108 [facility] Comprehensive Metabolic Prof ilon 03-15-2025 Albumin [Mass/Vol] 4.3 g/dL Normal 3.5-5.0 [facility] Comment on above: Performed By: #### L 400.7600, L400.0001 #### [facility] [address] [place], [address] Albumin/Globulin [Mass ratio] 1.2 {ratio} Normal 0.9-2.4 [facility] Comment on above: Performed By: #### L 400.7600, L400.0001 #### [facility] [address] [place], [address] ALK PHOS 88 U/L Normal 35-104 [facility] Comment on above: Performed By: #### L 400.7600, L400.0001 #### [facility] [address] [place], [address] ALT [Catalytic activity/Vol] 15 U/L Normal <=34 [facility] Comment on above: Performed By: #### L 400.7600, L400.0001 #### [facility] [address] [place], [address] AST [Catalytic activity/Vol] 28 U/L Normal <=31 [facility] Comment on above: Performed By: #### L 400.7600, L400.0001 #### [facility] [address] [place], [address] Bilirubin [Mass/Vol] 0.77 mg/dL Normal 0.00-1.30 [facility] Comment on above: Performed By: #### L 400.7600, L400.0001 #### [facility] [address] [place], [address] BUN/CRE 14.7 RATIO Normal 10-20 [facility] Comment on above: Performed By: #### L 400.7600, L400.0001 #### [facility] [address] [place], [address] Calcium [Mass/Vol] 9.5 mg/dL Normal 7.6-11.0 [facility] Comment on above: Performed By: #### L 400.7600, L400.0001 #### [facility] [address] [place], [address] Chloride [Moles/Vol] 101 mmol/L Normal 98-108 [facility] Comment on above: Performed By: #### L 400.7600, L400.0001 #### [facility] [address] [place], [address] CO2 [Moles/Vol] 15.4 mmol/L Low 21.0-32.0 [facility] Comment on above: Performed By: #### L 400.7600, L400.0001 #### [facility] [address] [place], [address] Creatinine [Mass/Vol] 0.71 mg/dL Normal 0.70-1.20 [facility] Comment on above: Performed By: #### L 400.7600, L400.0001 #### [facility] [address] [place], [address] ECRCL 170.30 ml/min Normal 50-250 [facility] Comment on above: Performed By: #### L 400.7600, L400.0001 #### [facility] [address] [place], [address] GAP 22 High 5-15 [facility] Comment on above: Performed By: #### L 400.7600, L400.0001 #### [facility] [address] [place], [address] GFR/1.73 sq M.predicted among non-blacks MDRD (S/P/Bld) [Vol rate/Area] 113 mL/min/{1.73_m2} Normal >60 [facility] Comment on above: Result Comment: mL/m in/1.73m2 CKD-EPI Creatinine Equation (2020) Performed By: #### L 400.7600, L400.0001 #### [facility] [address] [place], [address] Globulin (S) [Mass/Vol] 3.6 g/dL Normal 2.2-4.2 [facility] Comment on above: Performed By: #### L 400.7600, L400.0001 #### [facility] [address] [place], [address] Glucose [Mass/Vol] 130 mg/dL High 70-99 [facility] Comment on above: Performed By: #### L 400.7600, L400.0001 #### [facility] [address] [place], [address] Potassium [Moles/Vol] 3.4 mmol/L Normal 3.3-5.1 [facility] Comment on above: Performed By: #### L 400.7600, L400.0001 #### [facility] [address] [place], [address] Sodium [Moles/Vol] 139 mmol/L Normal 133-145 [facility] Comment on above: Performed By: #### L 400.7600, L400.0001 #### [facility] [address] [place], [address] T PROT 7.8 g/dL Normal 5.9-8.4 [facility] Comment on above: Performed By: #### L 400.7600, L400.0001 #### [facility] [address] [place], [address] Urea nitrogen [Mass/Vol] 10 mg/dL Normal 4-19 [facility] Comment on above: Performed By: #### L 400.7600, L400.0001 #### [facility] [address] [place], [address] Emergency Department Summary on 03-15-2025 Emergency Department Summary [facility] Medical Records Department [address] [place] [address] Emergency Department Summary 03/15/25 MR#: [id number] Acct: [id number] Name: CECILIA ABBASI Rep #: [id number] : 1990 34 From: Jai Arizmendi MD PCP: Patrick Mcdermott PROMOTIONS ASSISTANT-Fidel Status:REG ER Location: ED HPI HPI - Female History of Present Illness Chief Complaint: Vag Bleeding Narrative Narrative: 34-year-old female presents with vaginal bleeding that she has had for the last 7 days. She relates history that she started seeing Keiko Rios with the [facility] as her CRUDE OIL TREATER. Her history and physical is mildly limited because she is writhing around the bed, and standing up. She states that she has had nausea and vomiting. She was put on Aygestin by the CRUDE OIL TREATER to help with vaginal bleeding. She states she is scheduled for a D C on March 26, approximately 11 days from now. She was taking the Aygestin, but 7 days ago started having vaginal bleeding. Her significant other states that she has been having heavy vaginal bleeding and increased her pad usage from about 4 pads a day to 8. Her pads are always saturated. She has been having lower abdominal pain as well. [facility] Medical History PTSD (post-traumatic stress disorder) Bipolar 1 disorder Anxiety Osteoarthritis of right knee Right knee pain Home Medications ???Medication ???Instructions ???Recorded ???Last Taken ???Type ondansetron 4 mg disintegrating 4 mg PO Q8H PRN PRN Nausea #10 tab s 09/16/24 Unknown Rx tablet Allergy/AdvReac Type Severity Reaction Status Date / Time trazodone Allergy Severe Anaphylaxis Verified 03/15/25 21:00 sulfamethoxazole (From Allergy Intermediate Rash Verified 03/15/25 21:00 Bactrim) trimethoprim (From Bactrim) Allergy Intermediate Rash Verified 03/15/25 21:00 aspirin Allergy Swelling Verified 03/15/25 21:00 peanut (peanuts) Allergy Other Verified 03/15/25 21:00 diazepam (From Valium) AdvReac Other Verified 03/15/25 21:00 Family History Mother Heart disease Father Seizures Surgical History H/O laparoscopy History of cholecystectomy Social History household members: spouse and family Smoking Status: Current every day smoker tobacco type: cigarettes and e-cigarettes alcohol intake: never ROS ROS ED ROS Narrative Review of systems positive for nausea and vomiting. Lower abdominal/pelvic pain. Positive vaginal bleeding for 7 days. No fevers or chills. No dysuria or hematuria. No upper abdominal pain. EXAM Physical Exam Narrative Exam Narrative: Exam is mildly limited secondary to patient writhing around on the cot, standing up and dry heaving into the trash can. Cardiovascular examination reveals mild tachycardia. Lungs are clear to auscultation bilaterally. Abdomen is soft, obese, with minimal lower abdominal tenderness. Neurological examination nonfocal in the lateralizing. Psychiatric examination is mildly manic. Const Vital Signs: 03/15/25 20:58 03/15/25 22:57 03/16/25 00:00 Temperature 98.5 F Temperature Source Oral Pulse Rate 121 H 95 89 Respiratory Rate 40 H 18 18 Blood Pressure 149/138 H 135/84 H 185/106 H Blood Pressure Mean 141 101 132 Pulse Ox 98 97 100 Oxygen Delivery Method Room Air Room Air Room Air MDM MDM MDM Narrative Medical decision making narrative: The differential diagnosis includes but not limited to irregular vaginal bleeding versus ectopic versus mental menorrhagia versus pancreatitis. I reviewed the patient's prior ED visits. She has been seen previously for abdominal pain and required Haldol 2 mg intravenously. In fact, I had seen her previously and ordered laboratory work but she ended up eloping from the emergency department. Blood work was obtained and she does have a leukocytosis of 22.5 which may be demargination from vomiting. Hemoglobin is 13.4 with hematocrit 39.4, and normal although she states that she has been having heavy vaginal bleeding for 7 days. Platelet count normal at 382. CMP is remarkable for slightly elevated anion gap of 22 with a glucose of 130, but she has normal sodium of 139 potassium 3.4, chloride 101, and carbon dioxide is low at 15.4 which may be from hyperventilation causing her anion gap. I do not think she is in diabetic ketoacidosis. LFTs are grossly unremarkable. Lipase normal at 25 so I doubt pancreatitis. Serum is negative. I will defer pelvic examination because on repeat examination after Haldol she is resting comfortably on the cot. She is not having any upper abdominal pain but given her leukocytosis I discussed wit (more content not included)... Normal [facility] Eosinophil percentageOrdered By: Jai Arizmendi on 03-15-2025 Eosinophils/100 WBC (Bld) 0.0 % 0-5 [facility] Erythrocyte distribution wid th ratioOrdered By: Jai Arizmendi on 03-15-2025 Erythrocyte distribution width (RBC) [Ratio] 15.4 % High 11.6-14.6 [facility] Erythrocyte distribution wid th standard deviationOrdered By: Jai Arizmenid on 03-15-2025 Erythrocyte distribution width (RBC) [Ratio] 49.0 fl High 35.1-43.9 [facility] Glomerular filtration rate ( GFR) estimation/1.73 sq m using serum, plasma, or whole bOrdered By: Jai Arizmendi on 03-15-2025 GFR/1.73 sq M.predicted among non-blacks MDRD (S/P/Bld) [Vol rate/Area] 113 mL/min/{1.73_m2} >60 [facility] Comment on above: mL/min/1.73m2 CKD-EP I Creatinine Equation (2020) Hematocrit Auto (Bld) [Volum e fraction]Ordered By: Jai Arizmendi on 03-15-2025 Hematocrit (Bld) [Volume fraction] 39.4 % 37-47 [facility] Hemoglobin measurementOrdere d By: Jai Arizmendi on 03-15-2025 Hemoglobin (Bld) [Mass/Vol] 13.4 g/dL 12.0-15.0 [facility] Immature granulocytes/100 WB C Auto (Bld)Ordered By: Jai Arizmendi on 03-15-2025 Immature granulocytes/100 WBC (Bld) 0.600 % 0.0-0.9 [facility] Comment on above: IG% - Immature Granu locytes (promyelocytes, myelocytes and metamyelocytes) > 1% indicates that a LEFT SHIFT is Present. Laboratory - Chemistry and C hemistry - challengeOrdered By: Jai Arizmendi on 03-15-2025 AST [Catalytic activity/Vol] 28 U/L <32 [facility] Lipaseon 03-15-2025 Lipase [Catalytic activity/Vol] 25 U/L Normal 13-75 [facility] Comment on above: Result Comment: Ezio durham note: LIPASE revised reference range effective 22. New Lipase methodology. Expected to produce lower values than the previous assay method. NEW Reference Range: 13 - 75 U/L Performed By: #### L 400.7600, L400.0001 #### [facility] Laboratory [address] [place], [address] Lipase measurementOrdered By : Jai Arizmendi on 03-15-2025 Lipase [Catalytic activity/Vol] 25 U/L 13-75 [facility] Comment on above: Please note:LIPASE r evised reference range effective 22. New Lipase methodology. Expected to produce lower values than the previous assay method. NEW Reference Range: 13 - 75 U/L MCV (mean corpuscular volume ) determinationOrdered By: Jai Arizmendi on 03-15-2025 MCV (RBC) [Entitic vol] 87.2 fL 81-99 [facility] Mean corpuscular hemoglobin (MCH) determinationOrdered By: Jai Arizmendi on 03-15-2025 MCH (RBC) [Entitic mass] 29.6 pg 27.0-32.0 [facility] Mean corpuscular hemoglobin concentration (MCHC) determinationOrdered By: Jai Arizmendi on 03-15-2025 MCHC (RBC) [Mass/Vol] 34.0 g/dL 32-36 [facility] Mean platelet volume determi nationOrdered By: Jai Arizmendi on 03-15-2025 Platelet mean volume (Bld) [Entitic vol] 10.4 fL 6.2-12.0 [facility] Monocyte percentageOrdered B y: Jai Arizmendi on 03-15-2025 Monocytes/100 WBC (Bld) 7.7 % 0-10 [facility] Neutrophil percentageOrdered By: Jai Arizmendi on 03-15-2025 Neutrophils/100 WBC (Bld) 74.6 % High 47-70 [facility] Nucleated red blood cell per centageOrdered By: Jai Arizmendi on 03-15-2025 Nucleated RBC/100 WBC (Bld) [Ratio] 0 % 0-5 [facility] Platelet countOrdered By: Tenzin Arizmendi on 03-15-2025 Platelets (Bld) [#/Vol] 382 10*3/uL 150-450 [facility] Platelet estimateOrdered By: Jai Arizmendi on 03-15-2025 Platelets LM Ql (Bld) ADEQUATE ADEQ [facility] Potassium measurement (mass/ volume)Ordered By: Jai Arizmendi on 03-15-2025 Potassium (Unsp spec) [Mass/Vol] 3.4 mmol/L 3.3-5.1 [facility] ,Serum,hCG Quali.on 03-15-2025 HCG, SERUM QUAL Negative Normal [facility] Comment on above: Performed By: #### L 400.5780, L400.0001 #### [facility] Laboratory [facility] [place], [address] RBC Auto (Bld) [#/Vol]Ordere d By: Jai Arizmendi on 03-15-2025 RBC (Bld) [#/Vol] 4.52 10*6/uL 4.2-5.4 [facility] Serum beta-hCG test, qualita tiveOrdered By: Jai Arizmendi on 03-15-2025 Beta HCG ( test) Ql Negative [facility] Serum creatinine measurement (mass/volume)Ordered By: Jai Arizmendi on 03-15-2025 Creatinine [Mass/Vol] 0.71 mg/dL 0.70-1.20 [facility] Serum globulin measurementOr dered By: Jai Arizmendi on 03-15-2025 Globulin (S) [Mass/Vol] 3.6 g/dL 2.2-4.2 [facility] Serum glucose measurement (m ass/volume)Ordered By: Jai Arizmendi on 03-15-2025 Glucose [Mass/Vol] 130 mg/dL High 70-99 [facility] Serum or plasma alanine luther otransferase (ALT) measurementOrdered By: Jai Arizmendi on 03-15-2025 ALT [Catalytic activity/Vol] 15 U/L <35 [facility] Serum or plasma albumin yash urement (mass/volume)Ordered By: Jai Arizmendi on 03-15-2025 Albumin [Mass/Vol] 4.3 g/dL 3.5-5.0 [facility] Serum or plasma albumin/glob ulin mass ratioOrdered By: Jai Arizmendi on 03-15-2025 Albumin/Globulin [Mass ratio] 1.2 {ratio} 0.9-2.4 [facility] Serum or plasma alkaline lisseth sphatase measurementOrdered By: Jai Arizmendi on 03-15-2025 ALP [Catalytic activity/Vol] 88 U/L 35-104 [facility] Serum or plasma calcium yash urement (mass/volume)Ordered By: Jai Arizmendi on 03-15-2025 Calcium [Mass/Vol] 9.5 mg/dL 7.6-11.0 [facility] Serum or plasma urea nitroge n measurement (mass/volume)Ordered By: Jia Arizmendi on 03-15-2025 Urea nitrogen [Mass/Vol] 10 mg/dL 4-19 [facility] Sodium levelOrdered By: Jai Arizmendi on 03-15-2025 Sodium [Moles/Vol] 139 mmol/L 133-145 [facility] Total proteinOrdered By: Andree Arizmendi on 03-15-2025 Protein [Mass/Vol] 7.8 g/dL 5.9-8.4 [facility] White blood cell (WBC) count Ordered By: Jai Kyleigh on 03-15-2025 WBC (Bld) [#/Vol] 22.5 10*3/uL High 4.4-11.0 [facility] CNPNon 03-13-2025 CNPN Telephone (OBGYWM) CECILIA VILLAFUERTE ([id number]* 1990 F [place] Date Time Provider Department 03/13/25 KEIKO RIOS OBGYWM During your visit today, we recorded the following information about you: Minnie Leon LPN 03/13/2025 11:39 AM Signed Surgery 03/26/25 at [facility]. Please approve order. Allergies As of Date: 03/13/2025 Noted Allergy Reaction ASPIRIN 01/14/2025 7 - Swelling Comments: Throat swelling SULFAMETHOXAZOLE 01/14/2025 2 - Rash TRAZODONE 01/14/2025 10 - Anaphylaxis TRIMETHOPRIM 01/14/2025 2 - Rash CARROT JUICE 01/30/2018 4 - Hives Comments: Pt stated she is allergic to carrots. No rxn specified. DIAZEPAM 01/14/2025 14 - Other: See Comments Comments: Possibly passing out KETOROLAC TROMETHAMINE 01/30/2018 7 - Swelling Comments: my throat swells PEANUT 01/14/2025 14 - Other: See Comments TRAMADOL 06/25/2016 10 - Anaphylaxis LATEX 03/17/2016 2 - Rash Date Reviewed: 03/07/2025 Reviewed by: Keiko Rios MD - Fully Assessed Reason for Visit: Schedule Surgery [1330] Primary Visit Diagnosis:Abnormal uterine bleeding [N93.9] Other Visit Diagnosis:Dysmenorrh ea [N94.6] Order(s):SURGICAL REQUEST - ELECTIVE (03/2020) [2330522] Order #: [id number]: 1 Prescriptions as of 03/21/2025 - norethindrone (AYGESTIN) 5 mg tablet Take 1 tablet by mouth once daily. Problem List As Of Date 03/13/2025 Noted Resolved Dysmenorrhea [N94.6] 03/07/2025 Abnormal uterine bleeding (AUB) [N93.9] 12/06/2017 BMI 45.0-49.9, adult (HCC) [Z68.42] 03/07/2025 Cigarette smoker [F17.210] 02/19/2016 Depression [F32.A] 03/06/2014 Endometriosis [N80.9] 12/27/2017 Fibromyalgia [M79.7] 10/27/2017 Intractable nausea and vomiting [R11.2] 02/19/2016 Hypokalemia [E87.6] 03/07/2025 Marijuana use [F12.90] 03/07/2025 Osteoarthritis of right knee [M17.11] 03/07/2025 Pelvic and perineal pain [R10.2] 12/06/2017 Recurrent loss without current pregna*12/06/2017 Stress incontinence [N39.3] 02/21/2016 Intramural uterine fibroid [D25.1] 03/07/2025 Encounter Status:Closed by MINNIE LEON on 03/21/25 [facility] Anuja 03-07-2025 CNOV Office Visit (OBGYWM) CECILIA VILLAFUERTE ([id number]* 1990 F Date Time Provider Department 03/07/25 11:10 AM KEIKO RIOS OBGYWM During your visit today, we recorded the following information about you: Blood pressure Weight Last Period 128/84 150.1 kg 02/24/25 Kieko Rios MD 03/07/2025 5:30 PM Signed Cecilia Crum is a 34 year old female who presents for problem visit for menstrual issues . HPI: 34 YOF presents c/o menstrual issues. Recurrent loss. Now over past few years menses have gotten worse and gets pain and bleeding. Pain starts before the bleeding or with it and ibuprofent doesn't help. When bleeds gets worse pain. Changes pads q 1 hr at heaviest. Some clots. Gets nausea and vomiting. Worse over past year. Last menses only had light spotting for a day. S/p laparoscopy in 2018. Has very irregular bleeding, will skip menses then has had episodes that she bled 2 months in a row. Denies dyspareuina. Denies abnormal vaginal dicharge, itching or burning or STI. States she emotionally cannot go through another loss and doesn't want future child bearing. Last about 1 year ago. Laparoscopy in 2018 she thinks showed endometriosis. Denies h/o prolonged bleeding or easy bruising. When she was young age 14 was on depo. OB History Oufcvnn08 Para0 Term0 Preterm0 AB19 Living0 SAB12 IAB0 Ectopic7 Multiple0 Live Births0 Bait Packer History LMP: 01/09/2025, Having periods Age at Menarche: Age at First : Age at Menopause: Bait Packer History Comments: Sexual Activity: Yes; No partner data on record Contraception: None PAST MEDICAL HISTORY Diagnosis Date Bipolar 1 disorder (HCC) Ectopic (HCC) Endometriosis Generalized anxiety disorder Osteoarthritis of right knee PCOS (polycystic ovarian syndrome) PTSD (post-traumatic stress disorder) PAST SURGICAL HISTORY Procedure Laterality Date HYSTEROSCOPY, DIAGNOSTIC (SEPARATE 03/02/2018 L'SCOPE DX W/WO BRUSHINGS/WASHINGS 03/02/2018 reopen fallopian tube chromotubation LAPAROSCOPIC CHOLECYSTECTOMY FAMILY HISTORY Problem Relation Age of Onset Heart disease Mother Seizures Father Social History Tobacco Use Smoking status: Every Day Types: Cigarettes Smokeless tobacco: Never Vaping Use Vaping status: Never Used Substance Use Topics Alcohol use: Not Currently Drug use: Yes Types: Marijuana Current Outpatient Medications Medication Sig DULoxetine (CYMBALTA) 30 mg capsule Take 1 capsule by mouth once daily. (Patient not taking: Reported on 01/24/2025) No current facility-administere d medications for this visit. Allergies As of Date: 03/07/2025 Allergen Noted Reaction ASPIRIN 01/14/2025 Swelling SULFAMETHOXAZOLE 01/14/2025 Rash TRAZODONE 01/14/2025 Anaphylaxis TRIMETHOPRIM 01/14/2025 Rash CARROT JUICE 01/30/2018 Hives DIAZEPAM 01/14/2025 Other: See Comments KETOROLAC TROMETHAMINE 01/30/2018 Swelling PEANUT 01/14/2025 Other: See Comments TRAMADOL 06/25/2016 Anaphylaxis LATEX 03/17/2016 Rash Fully Assessed 03/07/2025 REVIEW OF SYSTEMS Abdomen: No bloating, early satiety, indigestion, or increased flatulence. No abdominal pain, nausea, vomiting, diarrhea, or constipation. Bladder: No dysuria, gross hematuria, urinary frequency, urinary urgency. Some HELLEN w/ coughing> Has been dx w/ a lot of UTI Breast: No breast lumps, nipple d/c, overlying skin changes, redness or skin retraction and denies nipple discharge. Expanded ROS: n/a Allergies and current medication updated:Yes SENSITIVE EXAM: Sensitive exam not performed. EXAM: LMP 01/09/2025 GENERAL: pleasant, female in no apparent distress ASSESSMENT AND PLAN: Assessment AND Plan Dysmenorrhea Orders: PELVIC US WHI; Future Abnormal uterine bleeding (AUB) Orders: PELVIC US WHI; Future BMI 45.0-49.9, adult (HCC) Intramural uterine fibroid Orders: PELVIC US WHI; Future r/b/a to various treatment options reviewed. Not candidate for combined hormonal contraceptives due to tob use. D/w her progestin therapy, hysteroscopy DANDC with IUD insertion, IUD insertion in office. She is hesitant. I d/w her short and long-term risks of hyst and that may not solve her issues. D/w her with reported history of endometriosis that IUD is a great treatment option for this. NSAID/tylenol prn dysmenorrhea. D/w her locally none of our providers in our office perform hyst on high risk patients or do robotic hysts. D/w her would refer to [facility] if desires hyst or fails IUD. She desires to proceed w/ DANDC/IUD insertion for now. check pelvic US aygestin to prevent bleeding until surgery MD Vince Ferrer Rebecca L, MD 03/07/2025 12:51 PM Edited Orders: PELVIC US WHI; Future Keiko Rios MD 03/07/2025 12:51 PM Edited Keiko Rios MD 03/07/2025 12:51 PM Renaldo (more content not included)... Normal [facility] HISTORY PHYSICALon HISTORY PHYSICAL HNO ID: [id number] Author: KEIKO RIOS MD Service: ? Author Type: Physician Type: H&P Filed: 03/07/2025 17:30 Note Text: Pre-Op History and Physical HPI: The patient is a 34 year old female presenting for pre-operative visit. She is scheduled for hysteroscopy DANDC, possible polyp resection, IUD insertion, for aub, adenomyosis, intramural fibroid and dysmenorrhea on 03/26/25. Procedure discussed along with risks, benefits and complications. Other alternatives discussed for management. Consent form signed? Yes. PAST MEDICAL HISTORY Diagnosis Date Bipolar 1 disorder (HCC) Ectopic (HCC) multiple- patient said she was given little blue pill to pass all ectopic pregnancies but one Endometriosis Generalized anxiety disorder Osteoarthritis of right knee PCOS (polycystic ovarian syndrome) PTSD (post-traumatic stress disorder) PAST SURGICAL HISTORY Procedure Laterality Date HYSTEROSCOPY, DIAGNOSTIC (SEPARATE 03/02/2018 L'SCOPE DX W/WO BRUSHINGS/WASHINGS 03/02/2018 reopen fallopian tube chromotubation LAPAROSCOPIC CHOLECYSTECTOMY Current Outpatient Medications Medication Sig Dispense Refill norethindrone (AYGESTIN) 5 mg tablet Take 1 tablet by mouth once daily. 30 tablet 0 No current facility-administere d medications for this visit. ALLERGIES: Aspirin, Sulfamethoxazole, Trazodone, Trimethoprim, Carrot Juice, Diazepam, Ketorolac Tromethamine, Peanut, Tramadol, and Latex PERSONAL HISTORY: Social History Tobacco Use Smoking status: Every Day Types: Cigarettes Smokeless tobacco: Never Vaping Use Vaping status: Never Used Substance Use Topics Alcohol use: Not Currently Drug use: Yes Types: Marijuana FAMILY HISTORY: FAMILY HISTORY Problem Relation Age of Onset Heart disease Mother Seizures Father REVIEW OF SYMPTOMS: GENERAL: denies fevers or chills ENDOCRINOLOGY: has not been on steroids Cardiology : denies palpitations or chest pain Respiratory: denies SOB or cough Hematology: denies history of prolonged bleeding or easy bruising or VTE Allergy: Denies history of personal or family history of allergy to anesthesia PHYSICAL EXAMINATION: VITALS: Blood pressure 128/84, weight (!) 150.1 kg (331 lb), last menstrual period 02/24/2025. GENERAL: The patient is well nourished, well hydrated in no acute distress. , The patient is oriented to time, place, and person. NECK: Supple. No lynphadenopathy, normal thyroid, no thyromegaly. LUNGS: Clear to auscultation bilaterally. no wheezes, rhonchi or rales HEART: Regular rate and rhythm, Normal heart sounds, and No murmurs or gallops IMPRESSION: AUB, dysmenorrhea, intramural uterine fibroid PLAN: The risks/benefits/alter natives and personal involved for the planned hysteroscopy DANDC with possible polyp resection and levonorgestrel IUD insertion were reviewed with the patient. Her questions were answered to her satisfaction and she desires to proceed. Consent was signed. I reviewed with her postop instructions and expectations. I have reviewed and updated past medical and surgical history, medications and allergies Keiko Rios M.D. Normal [facility] HIGH RISK HUMAN PAPILLOMA ETHAN (HPV), PCR FOR DETECTION AND GENOTYPINGOrdered By: Selena Bernard on 01-29-2025 HPV 16 Ag Ql (Unsp spec) Not detected Not detected [facility] HPV 18 Ag Ql (Unsp spec) Not detected Not detected [facility] HPV 31+33+35+39+45+51+52+56 +58+59+66+68 DNA MARISOL+probe Ql (Cvx) Not detected Not detected [facility] Comment on above: High Risk HPV Other Type includes HPV types 31, 33, 35, 39, 45, 51, 52, 56, 58, 59, 66 and 68. Interpretation and review of laboratory results Normal [facility] This test was developed and its performance characteristics determined by [facility]'s [facility] [place] ([facility] It has not been cleared or approved by the FDA. [facility] is regulated under CLIA as qualified to perform high-complexity testing. This test is used for clinical purposes. It should not be regarded as investigational or for research. [facility] No Panel InformationOrdered By: Sai Gordon on 01-29-2025 [facility] PAP TESTOrdered By: Sai Gordon on 01-29-2025 Case Report Gynecologic Cytology Report Case: [id number] Authorizing Provider: Danny Boyer MD Collected: 01/24/2025 10:00 AM Ordering Location: OB/Gynecology Received: 01/24/2025 11:43 AM First Screen: Heidi, Sia, CT, ASCP Specimen: Pap Test, ThinPrep, Cervix [facility] Clinical History Routine Exam [facility] Interpretation Negative [facility] LMP 01/09/2025 [facility] Pap Disclaimer [id number] bGFuZzEwMzNcZnRuYmpc hMHbFToqtyNjWRzyx1Qg O0BpWyAyQVotnbYgNTQx InubawtmZTXrXOI5jjXk VESrXJhpNNBxOTdvUj4b dRCnvDatWpWyAURrs9hx jhFGapxlwZv3w5guBXJj DwU7qMVgWTwgD4fxaoMj hWHhBEFhFGu2rA85QQJl dQ9dyUDdLHmxmgTdWdG1 OQbqMMFjWmR5YGBtfZQy KKYtH5ftIQTjNJrgIJIb JRyoaLOgSCE6cMcsz4A9 bGVzaGVldHtcZjBcZnMy GdXOa0JcUIf8oFliH2Pi KJKtRzB3wCIgRYAoKMbu KORrWBOlhkP7jT22KFpw xyU0jJFpd7Gan61hm096 gP9sqNBtQDD3DMQjAIOe kDCgTMRdNCI0ROXbdXUd M9emSYAdJK8jboexTKsq FCjoRHOwhNJ9GUMorUKh Y0DjRXXcAYrhGKJtrsp5 PnSeEx8teQRodRpzUJrk c0gnx4pflBGzIai7PUZi AkLcGxreBIaab0Rse3qu TQFrfj7qKBB3eEVxvWpx s5U1gUPsQDLhxDLznyOi YGMySmJ0PGfmVR2zri28 XJKfHJH8fr6bpBOgvIxc gnLsvGLoHJvlB5MzQQWv u254GMFsQ2MxXHPcv1N2 xuEwXiCbMAKvtXU1zkT2 EMPyXVg9gXZrjzO5vbFv qZYmF2jegA6eKFMpFT7o joqni7plZZdoDRguNRIb lBG1grH8KMLbjNSfE2If xV6lJNYuGPaoPPNspoy4 NpLuQs7uoKSwwXvgFFyx YmtwYWdlXHBnbmNvbnRc cGduZGVjXHBsYWluXHBs YWluXGYwXGZzMjRccWxc dMbcxJ3bBmZtBkNwXaqo DZ6qRIKxD7pocHSmTKRp HIByZ2qkVuOkvZ4exLrd EWxaapG3BJVxAQPSQYLo C22kFHIzyZQyALMqA2Sy WM2iqnsrhUDukDArq4Hf K9YocqdqVHfzB4CxT9Pw VbNyQxSpr4ReykJcTKBy ayEfnsMzoJp4glVjW4Q8 wcB6zBFvARObuXVgI5Hl YR2ldmyicKSzzLAvPCYn oCvht9w5hP8yBSKxPMMp ZWVkIGZvciByZXNjcmVl joqmFzNxnHYpPMHvlE9r bmRlZCBpbnRlcnZhbHMs IGFuZCBjbGluaWNhbCBj v9MiSXpbvWqzvp5drSfa zP1uSjYuXbFtHyzvIL9n YTLpQ2nnhUBrZYUjASHp Z5gdPmFjpN8spCqsIVpf kpDmKESfhw29 [facility] PAP Environmental Monitoring Specialist Comment x8kirWJsHPJrqLJjYXEc EaesplOtIWRmbNNoZ0Ca ndedJXsoNR7bKQ9idLra bCYbsSPeBHOnSsCaa5sx i137rLIri7jzOTFFrziz zXu2mYoiV08ku0H3Mzjt U18wxKMzQLU4XPEbQCBn dDEfGURvCSF1ESFtgWVr J7ivERMxFD3ahndtNYln TNpcGYQmrKN9UDMcrOWo G9DgAEEmJDjgRGJrfvz3 WoPpKy7fhYPwlTscDRob U6mheN0mAdT0OYreK9pr pY2gRCg4DGazTUDisDT3 cwG3IAOokUHuE5DvjI3h YZXvJO6lsof1r9tjJXB2 MPbqOJKePjV5gwP6UFZv cGFyZFxwbGFpblxpXGZz BKTdEObzzqXauPDhuF3y biBoYXMgYmVlbiBhbmFs wXeeTALvpHF6kPWjKzNY LWFwcHJvdmVkIEdlbml1 cyBEaWdpdGFsIERpYWdu v6S8hAVnZCI5vXWyPIRG LQ8qn0VsKDUxbODeQKL8 i0GfkZkli6qlG8gxlAHn cyBkaWdpdGFsIGltYWdp vgxnEN7gIPCwAYXlaHAm H8HnOXNsxHbcjTKcQMrj nD10AOwnkNkrmdGpEXyf STpeRCItAIi7h8qnYMAz D25obSHwuED3pbPkVVMg uMjtbKBwkJTrDMNhl9Zk uL74QNFtn6Pln97mlLbg AX5aS8Pyk5UfoUctJOJi yNYtOIJ0ggImo6Xmk3Na sBuiGGP3pU1jb1bfg9Rs ZD1cEHHfvIrhvK4uoZP4 LXvsABD6LTc1AZEvhaba F2XylUOrj57yJDfcfyAa GHAxGIDgRFNma7ZpFhJG v3hfq1rywixbRM0beDdr aXMsIGZpZWxkcyBvZiBp xcGoumVmkAEnyiS8sXFe cXumec6bY97sgDRgx5ti SMJxy3UpZEB9MAZpVsmq gJddZQHuF25kvCPrbLUn qeJsgqC0cJZ0DTHxKsbh HWCrbJMxqW0oiYT5WoQC ZiBhIHNhbXBsZSByZXF1 aXJlcyBoaWVyYXJjaGlj EIhwmcY8zHM2ILD0mFDn uTF1xH3vl2sgt6Fwd0an bCByZXZpZXcgdGhlIHNh sAWsPdpvuNRsHS4sJMxb jYKkSYX0ZLWyjVSziDUa CFU5YFCsDHFfkFaivgs9 pC2vrBKsn8VxyF3oNomb TVlawR47KECesoW1KTGb m91hHTEjmz6= [facility] Performing Lab i4ysqEWqXKScn1pzVWCs bGFuZzEwMzNcZnRuYmpc dWMxIHtccnRmMVxhbnNp XGRlZmxhbmcxMDMzXGZ0 lcQaMWUgITA2AMC4XcVz PSQpQkLvZEF0UYEvc4fg g3GovYMrqGOxTYzfzPIf hjLymm85aAN5tK50GC3c DOCfSxL2YJFvpeJ9Kog2 SESxYHZfkRSnP331v0oq x8vulaQbhOY5wCxyQQKu gcvsTfV5PPgdFYZrtcxt BLj9AIotVQQhmUD6GNGd hBYcL2QoFAToRU4vqou8 DQO6OQyzOBZgTcX9ZHCo dPBcSONxnIuvNTnzh240 MYV9GrXwONUns2J2xsSi ZbCiNZXhlDM4pmS3HZFk AV8lkltxf8vxWVetYVkw YIFrztC3jgI2RETzqZWw X8RmjB1pKUSeBV9uvmrd j5gvQFA4RCqkQPHbVZCd ZRlsAAVlJgFmAAVgqK2o H1ZaCRDifWHfltJorRtv T0m5j6AaP1gys2kbP0jl dXPaI4SkWY2rwtarwHZz Jq4rhREaOXK0IbYInEH2 CNytoyEeQ2qenqnsPE1m qT9tH5SksYYlBWjqz4Ln eURuXTkxFn0oIMRszeac MFw2JOUtYLMfhJvpCCT0 HP29CIybQHUvknAXLwMb IENsZXZlbGFuZCBPSCA0 AFH6HYKvR5bIGZirFoJS DMC2LbO8COdvOZI8fHuc cnRmMVxlcGljMTExMDJc UV3bhMuzqXr4yCwkARHz wqS8nCJfAUstc9xdSBB4 x3zprbudGNOtXHfqWm1e dHRibHtcZjAgQXJpYWw7 jG29MYEqoL6qiYUjRHm8 XHBhcGVydzEyMjQwXHBh fIJjoQB4DXRgCE5rzysn NNewPFtcBGSkddI9EBTd rUGvY2MlUBLzZW3jrjlu PNH1RWzjVNVmHHN5MiTf AWAui2Jrxvn8EqAhhTr1 s4waFGVhRBQzvGjvu6gt GPF1YFZatEGaX3tyoE5o UBEgDQ8fjvjfr5uiTRzq MKynPSBkpMY3hqG6CJVf qEUgP0AopL5uZHVuNFWb ctYjqRwbaB5rOgCjCWZH iMXbvn9zjIotXYhpvTQd zRJfyFX6yU0lSFKpgfOm fz2gHQArvCnhZ1loucWt ET9gUNKmdS4rNqQZVSdz KHMokYX3drNAl1TqvHMt uOFOWROlzvT9o0V3QND9 ZIUvQNX9R2uyHEZTnyVf iWJjRHZdl7ihTHKuZIAD kMU9QBrnagZjV5zdFNQy OTUgICBDTElBIyAzNkQw HiE1DIg5ERUjalSgoMQt OYjaPj0fSXCfrtxnSUfm TQS1e8H1FHemsLJlwyNB VO6gqGKfmclmZASenIAd fX0= [facility] Specimen Adequacy Satisfactory for interpretation. No endocervical component [facility] CNOVon 01-24-2025 CNOV Office Visit (OBGYWM) KING STEFANCECILIA TAYLOR ([id number]* 1990 F [place] Date Time Provider Department 01/24/25 8:50 AM DANNY BOYER During your visit today, we recorded the following information about you: Blood pressure Weight Height Last Period 138/82 148.8 kg 1.753 m 01/09/25 Danny Boyer MD 01/29/2025 11:02 AM Signed Cecilia Senior Bartolomenahomi is a 34 year old female who presents for problem visit subsequent to ER visit for persistent pelvic pain of of more 10 years duration.. Missed work and lost jobs due to pelvic pain. Unremarkable abd/pelvic CT at [facility] on 01-14-25. .Hx of recurrent loss 19/?7 ectopics treated medically. Rec made for hysterectomy but physician changed practices and is not accessible.Not interested in medical/IUD therapy. laparotomy in 2018 revealed unremarkable abdominal visera, normal appearing uterus, tubes and ovaries. HPI: as above OB History [id number] Para0 Term0 Preterm0 AB19 Living0 SAB12 IAB0 Ectopic7 Multiple0 Live Births0 Bait Packer History LMP: 01/09/2025, Having periods Age at Menarche: Age at First : Age at Menopause: Bait Packer History Comments: Sexual Activity: Yes; No partner data on record Contraception: None PAST MEDICAL HISTORY Diagnosis Date Bipolar 1 disorder (HCC) Ectopic (HCC) Endometriosis Generalized anxiety disorder Osteoarthritis of right knee PCOS (polycystic ovarian syndrome) PTSD (post-traumatic stress disorder) PAST SURGICAL HISTORY Procedure Laterality Date L'SCOPE DX W/WO BRUSHINGS/WASHINGS LAPAROSCOPIC CHOLECYSTECTOMY FAMILY HISTORY Problem Relation Age of Onset Heart disease Mother Seizures Father Social History Tobacco Use Smoking status: Every Day Types: Cigarettes Smokeless tobacco: Never Vaping Use Vaping status: Never Used Substance Use Topics Alcohol use: Not Currently Drug use: Yes Types: Marijuana Current Outpatient Medications Medication Sig DULoxetine (CYMBALTA) 30 mg capsule Take 1 capsule by mouth once daily. (Patient not taking: Reported on 01/24/2025) No current facility-administere d medications for this visit. Allergies As of Date: 01/24/2025 Allergen Noted Reaction ASPIRIN 01/14/2025 Swelling SULFAMETHOXAZOLE 01/14/2025 Rash TRAZODONE 01/14/2025 Anaphylaxis DIAZEPAM 01/14/2025 Other: See Comments PEANUT 01/14/2025 Other: See Comments reviewed none REVIEW OF SYSTEMS Abdomen: No bloating, early satiety, indigestion, or increased flatulence. No abdominal pain, nausea, vomiting, diarrhea, or constipation. Bladder: incontinence. Breast: No breast lumps, nipple d/c, overlying skin changes, redness or skin retraction. Expanded ROS: N/A Allergies and current medication updated:Yes SENSITIVE EXAM: The sensitive examination was discussed with the Patient or Patient's Authorized Mine Inspector Federal. As applicable, any other physician, advance practice provider, medical student, or other health professional student that will be observing or involved in the sensitive examination for educational or training purposes was discussed with the Patient or Authorized Mine Inspector Federal. The Patient or Authorized Mine Inspector Federal has agreed to proceed with the sensitive examination. (Sensitive examination includes inspection and/or palpation of the breasts, pelvis, prostate and anorectal regions). EXAM: Wt 328 lb (148.8kg) LMP 01/09/2025 GENERAL: pleasant, female in no apparent distress PELVIC: external genitalia normal, normal Bartholin's glands, urethra, [place]'s glands, no vulvar lesions, no cervical lesions, good vaginal support, physiologic discharge present, normal appearing perineal body and perianal region BIMANUAL: uterus normal size, shape and consistency, no adnexal masses, and non-tender ASSESSMENT AND PLAN: Assessment AND Plan Encounter for screening for malignant neoplasm of cervix Special screening examination for human papillomavirus (HPV) Pelvic pain in female Recurrent loss without current Mixed stress and urge urinary incontinence lengthy conversation with patient and partner with careful review of medical records. Plan consult with colleague for definitive tx/hysterectomy > 50 min Danny Boyer MD Referring Provider: SELF [200] Allergies As of Date: 01/24/2025 Noted Allergy Reaction ASPIRIN 01/14/2025 7 - Swelling Comments: Throat swelling SULFAMETHOXAZOLE 01/14/2025 2 - Rash TRAZODONE 01/14/2025 10 - Anaphylaxis DIAZEPAM 01/14/2025 14 - Other: See Comments Comments: Possibly passing out PEANUT 01/14/2025 14 - Other: See Comments Date Reviewed: Never Reviewed Primary Visit Diagnosis:Encounter for screening for malignant neoplasm of cervix [Z12.4] Other Visit Diagnoses:Special screening examination for human papillomavirus (HPV) [Z11.51] Pelvic pain in femal (more content not included)... Normal [facility] HIGH RISK HUMAN PAPILLOMA ETHAN (HPV), PCR FOR DETECTION AND GENOTYPINGon 01-24-2025 HPV 16 Ag Ql (Unsp spec) Not detected Normal Not detected [facility] Comment on above: Order Comment: Speci men Type: FLUID SPECIMEN Ordering Facility: [facility] Address: [address] [place] [address] Performed By: #### H PVHRT #### [facility] CLIA [id number] [address] [place] [address] [place] HPV 18 Ag Ql (Unsp spec) Not detected Normal Not detected [facility] Comment on above: Order Comment: Speci men Type: FLUID SPECIMEN Ordering Facility: [facility] Address: [address] [place] [address] Performed By: #### H PVHRT #### [facility] CLIA [id number] [address] [place] [address] [place] HPV 31+33+35+39+45+51+52+56 +58+59+66+68 DNA MARISOL+probe Ql (Cvx) Not detected Normal Not detected [facility] Comment on above: Order Comment: Speci men Type: FLUID SPECIMEN Ordering Facility: [facility] Address: [address] [place] [address] Result Comment: High Risk HPV Other Type includes HPV types 31, 33, 35, 39, 45, 51, 52, 56, 58, 59, 66 and 68. Performed By: #### H PVHRT #### [facility] CLIA [id number] [address] [place] [address] [place] PAP TESTon 01-24-2025 ADEQUACY Normal [facility] Comment on above: Order Comment: Speci men Type: FLUID SPECIMEN Ordering Facility: [facility] Address: [address] [place] [address] Result Comment: Sati sfactory for interpretation. No endocervical component Performed By: #### L [id number] #### [facility] CLIA [id number] [address] [place] [address] [place] CASE REPORT Normal [facility] Comment on above: Order Comment: Speci men Type: FLUID SPECIMEN Ordering Facility: [facility] Address: [address] [place] [address] Result Comment: Gyne cologic Cytology Report Case: [id number] Authorizing Provider: Danny Boyer MD Collected: 01/24/2025 10:00 AM Ordering Location: OB/Gynecology Received: 01/24/2025 11:43 AM First Screen: Gmitro, Sai, CT, ASCP Specimen: Pap Test, ThinPrep, Cervix Performed By: #### L [id number] #### [facility] CLIA [id number] [address] [place] [address] [place] CLINICAL HISTORY, CYTOLOGY, ROLLER STAKER Routine Exam Normal [facility] Comment on above: Order Comment: Speci men Type: FLUID SPECIMEN Ordering Facility: [facility] Address: [address] [place] [address] Performed By: #### L [id number] #### [facility] CLIA [id number] [address] [place] [address] [place] FINAL PERFORMING LAB Normal [facility] Comment on above: Order Comment: Speci men Type: FLUID SPECIMEN Ordering Facility: [facility] Address: [address] [place] [address] Result Comment: Tech nical component, insurance risk manager screening performed at: [facility], [address] [place] [address] [place] [address] CLIA: [id number] Diagnostic interpretation performed at: [facility], [address] [place], [place] [id number] CLIA# [id number] Program Management Professional: Donald Chase MD Performed By: #### L [id number] #### [facility] CLIA [id number] [address] [place] [address] [place] INTERPRETATION, CYTOLOGY, ROLLER STAKER Normal [facility] Comment on above: Order Comment: Speci men Type: FLUID SPECIMEN Ordering Facility: [facility] Address: [address] [place] [address] Result Comment: Nega tive for intraepithelial lesion or malignancy. at 1406 EDT Performed By: #### L [id number] #### [facility] CLIA [id number] [address] [place] [address] [place] LMP 01/09/2025 Normal [facility] Comment on above: Order Comment: Speci men Type: FLUID SPECIMEN Ordering Facility: [facility] Address: [address] [place] [address] Performed By: #### L [id number] #### [facility] CLIA [id number] [address] [place], [place] [id number] [place] PAP DISCLAIMER COMMENT The Pap Smear is a screening test for cervical cancer. False negative results occur with all screening tests, emphasizing the need for rescreening at recommended intervals, and clinical correlation. Normal [facility] Comment on above: Order Comment: Speci saad Type: FLUID SPECIMEN Ordering Facility: [facility] Address: [address] [place] [address] Performed By: #### L [id number] #### [facility] CLIA [id number] [address] [place] [address] [place] PAP AUTOMOTIVE DIAGNOSTIC TECHNICIAN COMMENT This specimen has been analyzed by the FDA-approved Zighra System, which uses digital imaging and an enhanced artificial intelligence image analysis algorithm to identify quintana of interest on the microscopic slide, to assist the mechanist and pathologist in evaluating cells on ThinPrep Pap tests. Following analysis, quintana of interest on the microscopic slide selected by the algorithm are reviewed by a mechanist. If a sample requires hierarchical review, the pathologist will review the same quintana of interest selected by the algorithm prior to final interpretation. Normal [facility] Comment on above: Order Comment: Speci men Type: FLUID SPECIMEN Ordering Facility: [facility] Address: [address] [place] [address] Performed By: #### L [id number] #### [facility] CLIA [id number] [address] [place] [address] [place] Abdomen/Pelvis W IV Cont ONL Yon 01-14-2025 Abdomen/Pelvis W IV Cont ONLY [facility] Imaging Services [address] [place] [address] [id number] Abdomen/Pelvis W IV Cont ONLY MR#: [id number] Acct: [id number] Name: CECILIA ABBASI Rep #: [id number] : 1990 F 34 From: Akhil Pendleton DO PCP: DI Smith Status: DEP ER Study: Abdomen/Pelvis W IV Cont ONLY Date of Exam: Exam# [id number] Ordering Dr: Juliet Aragon DO PROCEDURE: ABDOMEN/PELVIS W IV CONT ONLY 01/14/2025 REASON FOR EXAM: ABD PAIN, NAUSEA TECHNIQUE: Abdomen and pelvis CT with intravenous contrast. Coronal and Sagittal reconstruction series were provided. PATIENT PREPARATION: Per protocol ORAL CONTRAST TYPE: None. CONTRAST: None. One or more dose reduction techniques were used (e.g., Automated exposure control, adjustment of the mA and/or kV according to patient size, use of iterative reconstruction technique. RADIATION DOSE SUMMARY: CTDlvol: 24.18 mGy DLP: 1370.21 mGycm COMPARISON: None. FINDINGS: Lung bases: Clear. The liver, spleen, pancreas, adrenals and kidneys are unremarkable. The gallbladder is not identified. Bladder and reproductive organs: Unremarkable Bowel: Normal caliber and otherwise unremarkable Appendix: Not seen but no signs of right lower quadrant inflammatory process. Lymph nodes: No pathologic lymph nodes by size criteria. Vasculature: Unremarkable. Peritoneum / Retroperitoneum: Unremarkable Bones: Unremarkable CT/Abdomen/Pelvis W IV Cont ONLY IMPRESSION: No acute process is appreciated. Reading Location: [facility] CC: DI Mcdermott; Dr. Juliet Aragon, Correctional Maintenance Technician: Signed Normal [facility] Absolute lymphocyte countOrd ered By: Juliet Aragon on 01-14-2025 Lymphocytes Auto (Unsp spec) [#/Vol] 2.39 10*3/uL 0.83-4.51 [facility] Absolute neutrophil countOrd ered By: Juliet Aragon on 01-14-2025 Neutrophils (Bld) [#/Vol] 3.5 10*3/uL 2.0-7.7 [facility] Anion gap in Serum or Plasma Ordered By: Juliet Aragon on 01-14-2025 Anion gap [Moles/Vol] 11 mmol/L - [facility] Automated lymphocyte count a s percentage of total leukocytesOrdered By: Juliet Aragon on 01-14-2025 Lymphocytes/100 WBC Auto (Unsp spec) 35.8 % [facility] BUN/creatinine ratioOrdered By: Juliet Aragon on 01-14-2025 Urea nitrogen/Creatinine [Mass ratio] 16.0 mg/mg - [facility] Basic Metabolic Profile (BMP )on 01-14-2025 BUN/CRE 16.0 RATIO Normal 06-11 [facility] Comment on above: Performed By: #### L 100.0100, L500.2500, L501.2450, L500.3400 #### [facility] [address] [place], [address] Calcium [Mass/Vol] 8.8 mg/dL Normal 7.6-11.0 [facility] Comment on above: Performed By: #### L 100.0100, L500.2500, L501.2450, L500.3400 #### [facility] [address] [place], [address] Chloride [Moles/Vol] 101 mmol/L Normal 98-108 [facility] Comment on above: Performed By: #### L 100.0100, L500.2500, L501.2450, L500.3400 #### [facility] [address] [place], [address] CO2 [Moles/Vol] 27.1 mmol/L Normal 21.0-32.0 [facility] Comment on above: Performed By: #### L 100.0100, L500.2500, L501.2450, L500.3400 #### [facility] [address] [place], [address] Creatinine [Mass/Vol] 0.56 mg/dL Low 0.70-1.20 [facility] Comment on above: Performed By: #### L 100.0100, L500.2500, L501.2450, L500.3400 #### [facility] [address] [place], [address] ECRCL 219.23 ml/min Normal 50-250 [facility] Comment on above: Performed By: #### L 100.0100, L500.2500, L501.2450, L500.3400 #### [facility] [address] [place], [address] GAP 11 Normal 5-15 [facility] Comment on above: Performed By: #### L 100.0100, L500.2500, L501.2450, L500.3400 #### [facility] [address] [place], [address] GFR/1.73 sq M.predicted among non-blacks MDRD (S/P/Bld) [Vol rate/Area] 121 mL/min/{1.73_m2} Normal >60 [facility] Comment on above: Result Comment: mL/m in/1.73m2 CKD-EPI Creatinine Equation (2020) Performed By: #### L 100.0100, L500.2500, L501.2450, L500.3400 #### [facility] [address] [place], [address] Glucose [Mass/Vol] 147 mg/dL High 70-99 [facility] Comment on above: Performed By: #### L 100.0100, L500.2500, L501.2450, L500.3400 #### [facility] [address] [place], [address] Potassium [Moles/Vol] 3.7 mmol/L Normal 3.3-5.1 [facility] Comment on above: Performed By: #### L 100.0100, L500.2500, L501.2450, L500.3400 #### [facility] [address] [place], [address] Sodium [Moles/Vol] 139 mmol/L Normal 133-145 [facility] Comment on above: Performed By: #### L 100.0100, L500.2500, L501.2450, L500.3400 #### [facility] [address] [place], [address] Urea nitrogen [Mass/Vol] 9 mg/dL Normal 4-19 [facility] Comment on above: Performed By: #### L 100.0100, L500.2500, L501.2450, L500.3400 #### [facility] [address] [place], [address] Basophil percentageOrdered B y: Juliet Aragon on 01-14-2025 Basophils/100 WBC (Bld) 0.3 % 0-1 [facility] Bilirubin Test strip Ql (U)O rdered By: Juliet Aragon on 01-14-2025 Bilirubin Ql (U) Negative Negative [facility] Bilirubin directOrdered By: Juliet Aragon on 01-14-2025 Bilirubin.direct [Mass/Vol] 0.09 mg/dL 0.00-0.30 [facility] Bilirubin, totalOrdered By: Juliet Aragon on 01-14-2025 Bilirubin [Mass/Vol] 0.23 mg/dL 0.00-1.30 [facility] CBC W/Diff, Automatedon 12-22 Absolute Lymph 2.39 X10 3/uL Normal 0.83-4.51 [facility] Comment on above: Performed By: #### L 100.0100, L500.2500, L501.2450, L500.3400 #### [facility] [address] [place], [address] Absolute Neut 3.5 X10 3/uL Normal 2.0-7.7 [facility] Comment on above: Performed By: #### L 100.0100, L500.2500, L501.2450, L500.3400 #### [facility] [address] [place], [address] Basophils/100 WBC (Bld) 0.3 % Normal 0-1 [facility] Comment on above: Performed By: #### L 100.0100, L500.2500, L501.2450, L500.3400 #### [facility] [address] [place], [address] Eosinophils/100 WBC (Bld) 2.5 % Normal 0-5 [facility] Comment on above: Performed By: #### L 100.0100, L500.2500, L501.2450, L500.3400 #### [facility] [address] [place], [address] Erythrocyte distribution width (RBC) [Ratio] 15.4 % High 11.6-14.6 [facility] Comment on above: Performed By: #### L 100.0100, L500.2500, L501.2450, L500.3400 #### [facility] [address] [place], [address] Hematocrit (Bld) [Volume fraction] 38.4 % Normal 37-47 [facility] Comment on above: Performed By: #### L 100.0100, L500.2500, L501.2450, L500.3400 #### [facility] [address] [place], [address] Hemoglobin (Bld) [Mass/Vol] 12.8 g/dL Normal 12.0-15.0 [facility] Comment on above: Performed By: #### L 100.0100, L500.2500, L501.2450, L500.3400 #### [facility] [address] [place], [address] IG% 0.100 Normal 0.0-0.9 [facility] Comment on above: Result Comment: IG% - Immature Granulocytes (promyelocytes, myelocytes and metamyelocytes) > 1% indicates that a LEFT SHIFT is Present. Performed By: #### L 100.0100, L500.2500, L501.2450, L500.3400 #### [facility] [address] [place], [address] Lymphocytes/100 WBC (Bld) 35.8 % Normal 19-41 [facility] Comment on above: Performed By: #### L 100.0100, L500.2500, L501.2450, L500.3400 #### [facility] [address] [place], [address] MCH (RBC) [Entitic mass] 30.2 pg Normal 27.0-32.0 [facility] Comment on above: Performed By: #### L 100.0100, L500.2500, L501.2450, L500.3400 #### [facility] [address] [place], [address] MCHC (RBC) [Mass/Vol] 33.3 g/dL Normal 32-36 [facility] Comment on above: Performed By: #### L 100.0100, L500.2500, L501.2450, L500.3400 #### [facility] [address] [place], [address] MCV (RBC) [Entitic vol] 90.6 fL Normal 81-99 [facility] Comment on above: Performed By: #### L 100.0100, L500.2500, L501.2450, L500.3400 #### [facility] [address] [place], [address] Monocytes/100 WBC (Bld) 8.5 % Normal 0-10 [facility] Comment on above: Performed By: #### L 100.0100, L500.2500, L501.2450, L500.3400 #### [facility] [address] [place], [address] Neutrophils/100 WBC (Bld) 52.8 % Normal 47-70 [facility] Comment on above: Performed By: #### L 100.0100, L500.2500, L501.2450, L500.3400 #### [facility] [address] [place], [address] Nucleated RBC (Bld) [#/Vol] 0 10*3/uL Normal 0-5 [facility] Comment on above: Performed By: #### L 100.0100, L500.2500, L501.2450, L500.3400 #### [facility] [address] [place], [address] Platelet mean volume (Bld) [Entitic vol] 10.4 fL Normal 6.2-12.0 [facility] Comment on above: Performed By: #### L 100.0100, L500.2500, L501.2450, L500.3400 #### [facility] [address] [place], [address] Platelets (Bld) [#/Vol] 242 10*3/uL Normal 150-450 [facility] Comment on above: Performed By: #### L 100.0100, L500.2500, L501.2450, L500.3400 #### [facility] [address] [place], [address] RBC (Bld) [#/Vol] 4.24 10*6/uL Normal 4.2-5.4 [facility] Comment on above: Performed By: #### L 100.0100, L500.2500, L501.2450, L500.3400 #### [facility] [address] [place], [address] RDW SD 51.0 fl High 35.1-43.9 [facility] Comment on above: Performed By: #### L 100.0100, L500.2500, L501.2450, L500.3400 #### [facility] [address] [place], [address] WBC (Bld) [#/Vol] 6.7 10*3/uL Normal 4.4-11.0 [facility] Comment on above: Performed By: #### L 100.0100, L500.2500, L501.2450, L500.3400 #### [facility] [address] [place], [address] Carbon dioxide, total [Moles /volume] in Central venous bloodOrdered By: Juliet Aragon on 01-14-2025 CO2 [Moles/Vol] 27.1 mmol/L 21.0-32.0 [facility] Chloride assayOrdered By: Miguel Aragon on 01-14-2025 Chloride [Moles/Vol] 101 mmol/L 98-108 [facility] Emergency Department Summary on 01-14-2025 Emergency Department Summary [facility] Medical Records Department [address] [place] [address] Emergency Department Summary 01/14/25 MR#: [id number] Acct: [id number] Name: CECILIA ABBASI Rep #: [id number] : 1990 34 From: Juliet Aragon DO PCP: Patrick Mcdermott NP-C Status:DEP ER Location: ED HPI History of Present Illness Chief Complaint: Abd Pain Informant: patient Narrative Narrative: Patient is a 34-year-old female with history of PCOS, endometriosis, prior ectopic and exploratory laparoscopy presenting with nausea, vomiting and pelvic pain. Patient states she ended her period 5 days ago. When she has her menstrual cycle she has severe pelvic pain and bleeding. She went to [facility] for the symptoms at that time she was hyperventilating. She states she had EKG and labs. 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 She notices that the bleeding has stopped but she still having constant pelvic pain. She has not had any further vomiting but continues to be very nauseous. She notes after she eats and then radiates to her left flank. She also notes that she has not passed gas or had a bowel movement in 3 days. Her last bowel movement 3 days ago was liquid. She knows she is never had any bowel symptoms with these prior episodes of symptoms. She has had similar symptoms otherwise with prior ovarian cysts. She had been referred to [facility] but missed [facility] appointments and told they would not reschedule her. 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 She denies any urinary symptoms including dysuria, hematuria or frequency. Denies any fever or chills. Has not anything for symptoms today. No other complaints or concerns reported at this time. [facility] Medical History PTSD (post-traumatic stress disorder) Bipolar 1 disorder Anxiety Osteoarthritis of right knee Right knee pain Home Medications ???Medication ???Instructions ???Recorded ???Last Taken ???Type ondansetron 4 mg disintegrating 4 mg PO Q8H PRN PRN Nausea #10 tab s 09/16/24 Unknown Rx tablet Allergy/AdvReac Type Severity Reaction Status Date / Time trazodone Allergy Severe Anaphylaxis Verified 01/14/25 09:51 sulfamethoxazole (From Allergy Intermediate Rash Verified 01/14/25 09:51 Bactrim) trimethoprim (From Bactrim) Allergy Intermediate Rash Verified 01/14/25 09:51 aspirin Allergy Swelling Verified 01/14/25 09:51 peanut (peanuts) Allergy Other Verified 01/14/25 09:51 diazepam (From Valium) AdvReac Other Verified 01/14/25 09:51 Family History Mother Heart disease Father Seizures Surgical History H/O laparoscopy History of cholecystectomy Social History household members: spouse and family Smoking Status: Current every day smoker tobacco type: cigarettes and e-cigarettes alcohol intake: never ROS ROS ED Constitutional Constitutional ED: Denies chills or fever(s) Cardiovascular Cardiovascular: Denies chest pain or palpitations Respiratory/Chest Respiratory/Chest: Denies cough Gastrointestinal Gastrointestinal: Reports abdominal pain, constipation, nausea, vomiting and other Details: Previous vomiting earlier this week but that is since resolved. Genitourinary Genitourinary ED: Denies dysuria or hematuria Musculoskeletal Musculoskeletal: Denies arthralgias or myalgias Integumentary Denies rash Neurologic Neurologic: Denies weakness EXAM Physical Exam Const Vital Signs: 01/14/25 09:49 01/14/25 11:36 Temperature 97.1 F L Temperature Source Temporal Pulse Rate 91 65 Respiratory Rate 20 H 14 Blood Pressure 166/91 H 168/69 H Blood Pressure Mean 116 102 Pulse Ox 100 99 Oxygen Delivery Method Room Air Positive well nourished and well developed General Appearance ED: well developed and NAD HEENT Reports moist mucous membranes Eyes PERRL General Eye ED: Negative for pale conjunctiva Neck supple Chest Wall inspection of chest normal and palpation of chest normal Resp normal respiratory effort and clear to auscultation bilaterally Cardio regular rate, regular rhythm and no murmurs GI non-distended GI Narrative: Mild tenderness in the suprapubic region as well as the left lower quadrant. Hypoactive bowel sounds present. Auscultation: hypoactive bowel sounds Palpation: soft; Negative for guarding Back/Spine no CVA tenderness Extremity normal to inspection General Extremety ED: Negative for edema General Extremity: Negative for edema Neuro oriented x3 Sensorium / Orientation: alert Mo (more content not included)... Normal [facility] Eosinophil percentageOrdered By: Juliet Aragon on 01-14-2025 Eosinophils/100 WBC (Bld) 2.5 % 0-5 [facility] Erythrocyte distribution wid th ratioOrdered By: Juliet Aragon on 01-14-2025 Erythrocyte distribution width (RBC) [Ratio] 15.4 % High 11.6-14.6 [facility] Erythrocyte distribution wid th standard deviationOrdered By: Juliet Aragon on 01-14-2025 Erythrocyte distribution width (RBC) [Ratio] 51.0 fl High 35.1-43.9 [facility] Glomerular filtration rate ( GFR) estimation/1.73 sq m using serum, plasma, or whole bOrdered By: Juliet Aragon on 01-14-2025 GFR/1.73 sq M.predicted among non-blacks MDRD (S/P/Bld) [Vol rate/Area] 121 mL/min/{1.73_m2} >60 [facility] Comment on above: mL/min/1.73m2 CKD-EP I Creatinine Equation (2020) Hematocrit Auto (Bld) [Volum e fraction]Ordered By: Juliet Aragon on 01-14-2025 Hematocrit (Bld) [Volume fraction] 38.4 % 37-47 [facility] Hemoglobin measurementOrdere d By: Juliet Aragon on 01-14-2025 Hemoglobin (Bld) [Mass/Vol] 12.8 g/dL 12.0-15.0 [facility] Immature granulocytes/100 WB C Auto (Bld)Ordered By: Juliet Aragon on 01-14-2025 Immature granulocytes/100 WBC (Bld) 0.100 % 0.0-0.9 [facility] Comment on above: IG% - Immature Granu locytes (promyelocytes, myelocytes and metamyelocytes) > 1% indicates that a LEFT SHIFT is Present. Ketones Test strip Ql (U)Ord ered By: Juliet Aragon on 01-14-2025 Ketones Ql (U) 5 mg/dl High Negative [facility] Laboratory - Chemistry and C hemistry - challengeOrdered By: Juliet Aragon on 01-14-2025 AST [Catalytic activity/Vol] 21 U/L <32 [facility] Lipaseon 01-14-2025 Lipase [Catalytic activity/Vol] 62 U/L Normal 13-75 [facility] Comment on above: Result Comment: Plea se note: LIPASE revised reference range effective 22. New Lipase methodology. Expected to produce lower values than the previous assay method. NEW Reference Range: 13 - 75 U/L Performed By: #### L 100.0100, L500.2500, L501.2450, L500.3400 #### [facility] Laboratory [address] [place], [address] Lipase measurementOrdered By : Juliet Aragon on 01-14-2025 Lipase [Catalytic activity/Vol] 62 U/L 13-75 [facility] Comment on above: Please note:LIPASE r evised reference range effective 22. New Lipase methodology. Expected to produce lower values than the previous assay method. NEW Reference Range: 13 - 75 U/L Liver Profileon 01-14-2025 Albumin [Mass/Vol] 3.8 g/dL Normal 3.5-5.0 [facility] Comment on above: Performed By: #### L 100.0100, L500.2500, L501.2450, L500.3400 #### [facility] [address] [place], [address] ALK PHOS 66 U/L Normal 35-104 [facility] Comment on above: Performed By: #### L 100.0100, L500.2500, L501.2450, L500.3400 #### [facility] [address] [place], [address] ALT [Catalytic activity/Vol] 14 U/L Normal <=34 [facility] Comment on above: Performed By: #### L 100.0100, L500.2500, L501.2450, L500.3400 #### [facility] [address] [place], [address] AST [Catalytic activity/Vol] 21 U/L Normal <=31 [facility] Comment on above: Performed By: #### L 100.0100, L500.2500, L501.2450, L500.3400 #### [facility] [address] [place], [address] Bilirubin [Mass/Vol] 0.23 mg/dL Normal 0.00-1.30 [facility] Comment on above: Performed By: #### L 100.0100, L500.2500, L501.2450, L500.3400 #### [facility] [address] [place], [address] Bilirubin.direct [Mass/Vol] 0.09 mg/dL Normal 0.00-0.30 [facility] Comment on above: Performed By: #### L 100.0100, L500.2500, L501.2450, L500.3400 #### [facility] [address] [place], [address] Globulin (S) [Mass/Vol] 2.6 g/dL Normal 2.2-4.2 [facility] Comment on above: Performed By: #### L 100.0100, L500.2500, L501.2450, L500.3400 #### [facility] [address] [place], [address] T PROT 6.4 g/dL Normal 5.9-8.4 [facility] Comment on above: Performed By: #### L 100.0100, L500.2500, L501.2450, L500.3400 #### [facility] [address] [place], [address] MCV (mean corpuscular volume ) determinationOrdered By: Juliet Aragon on 01-14-2025 MCV (RBC) [Entitic vol] 90.6 fL 81-99 [facility] Mean corpuscular hemoglobin (MCH) determinationOrdered By: Juliet Aragon on 01-14-2025 MCH (RBC) [Entitic mass] 30.2 pg 27.0-32.0 [facility] Mean corpuscular hemoglobin concentration (MCHC) determinationOrdered By: Juliet Aragon on 01-14-2025 MCHC (RBC) [Mass/Vol] 33.3 g/dL 32-36 [facility] Mean platelet volume determi nationOrdered By: Juliet Aragon on 01-14-2025 Platelet mean volume (Bld) [Entitic vol] 10.4 fL 6.2-12.0 [facility] Microscopic analysis of urin e for red blood cells (RBC)Ordered By: Juliet Aragon on 01-14-2025 Microscopic analysis of urine for red blood cells (RBC) 0 SEEN /hpf 0-5 [facility] Monocyte percentageOrdered B y: Juliet Aragon on 01-14-2025 Monocytes/100 WBC (Bld) 8.5 % 0-10 [facility] Mucus LM Ql (Urine sed)Order ed By: Juliet Aragon on 01-14-2025 Mucus Ql (Urine sed) 1+ /hpf [facility] Neutrophil percentageOrdered By: Juliet Aragon on 01-14-2025 Neutrophils/100 WBC (Bld) 52.8 % 47-70 [facility] Nitrite Test strip Ql (U)Ord ered By: Juliet Aragon on 01-14-2025 Nitrite Ql (U) Negative Negative [facility] Nucleated red blood cell per centageOrdered By: Juliet Aragon on 01-14-2025 Nucleated RBC/100 WBC (Bld) [Ratio] 0 % 0-5 [facility] Platelet countOrdered By: Miguel Aragon on 01-14-2025 Platelets (Bld) [#/Vol] 242 10*3/uL 150-450 [facility] Potassium measurement (mass/ volume)Ordered By: Juliet Aragon on 01-14-2025 Potassium (Unsp spec) [Mass/Vol] 3.7 mmol/L 3.3-5.1 [facility] ,Urineon 01-14-2025 Beta HCG ( test) Ql (U) Negative Normal [facility] Comment on above: Result Comment: Very dilute urine specimens, as indicated by a low specific gravity, may not contain videotape sales representative levels of hCG. If is still suspected, a first morning urine specimen should be collected 48 hours later and tested. Performed By: #### L 400.7600, L400.0001 #### [facility] [address] [place] [address], [address] Protein Test strip Ql (U)Ord ered By: Juliet Aragon on 01-14-2025 Protein Ql (U) 30 mg/dl High Negative [facility] RBC Auto (Bld) [#/Vol]Ordere d By: Juliet Aragon on 01-14-2025 RBC (Bld) [#/Vol] 4.24 10*6/uL 4.2-5.4 [facility] Serum creatinine measurement (mass/volume)Ordered By: Juliet Aragon on 01-14-2025 Creatinine [Mass/Vol] 0.56 mg/dL Low 0.70-1.20 [facility] Serum globulin measurementOr dered By: Juliet Aragon on 01-14-2025 Globulin (S) [Mass/Vol] 2.6 g/dL 2.2-4.2 [facility] Serum glucose measurement (m ass/volume)Ordered By: Juliet Aragon on 01-14-2025 Glucose [Mass/Vol] 147 mg/dL High 70-99 [facility] Serum or plasma alanine luther otransferase (ALT) measurementOrdered By: Juliet Aragon on 01-14-2025 ALT [Catalytic activity/Vol] 14 U/L <35 [facility] Serum or plasma albumin yash urement (mass/volume)Ordered By: Juliet Aragon on 01-14-2025 Albumin [Mass/Vol] 3.8 g/dL 3.5-5.0 [facility] Serum or plasma alkaline lisseth sphatase measurementOrdered By: Juliet Aragon on 01-14-2025 ALP [Catalytic activity/Vol] 66 U/L 35-104 [facility] Serum or plasma calcium yash urement (mass/volume)Ordered By: Juliet Aragon on 01-14-2025 Calcium [Mass/Vol] 8.8 mg/dL 7.6-11.0 [facility] Serum or plasma urea nitroge n measurement (mass/volume)Ordered By: Juliet Aragon on 01-14-2025 Urea nitrogen [Mass/Vol] 9 mg/dL 4-19 [facility] Sodium levelOrdered By: Krzysztof Aragon on 01-14-2025 Sodium [Moles/Vol] 139 mmol/L 133-145 [facility] Squamous epithelial cells de tection in urine sediment by light microscopyOrdered By: Juliet Aragon on 01-14-2025 Epithelial cells.squamous LM Ql (Urine sed) 0-5 SEEN /hpf - [facility] Total proteinOrdered By: Mago Aragon on 01-14-2025 Protein [Mass/Vol] 6.4 g/dL 5.9-8.4 [facility] Urinalysis, Completeon 01-14 BACTERIA 1+ /hpf Normal None Seen [facility] Comment on above: Order Comment: CLEAN CATCH Performed By: #### L 400.7600, L400.0001 #### [facility] [address] [place], [address] EPI,SQUAMOUS 0-5 SEEN Normal - [facility] Comment on above: Order Comment: CLEAN CATCH Performed By: #### L 400.7600, L400.0001 #### [facility] [address] [place], [address] Mucus Ql (Urine sed) 1+ /hpf Normal [facility] Comment on above: Order Comment: CLEAN CATCH Performed By: #### L 400.7600, L400.0001 #### [facility] [address] [place], [address] WBC 0-5 SEEN Normal 0-5 [facility] Comment on above: Order Comment: CLEAN CATCH Performed By: #### L 400.7600, L400.0001 #### [facility] [address] [place], [address] RBC 0 SEEN Normal 0-5 [facility] Comment on above: Order Comment: CLEAN CATCH Performed By: #### L 400.7600, L400.0001 #### [facility] [address] [place], [address] Urine clarityOrdered By: Mago Araogn on 01-14-2025 Clarity (U) Sl. Cloudy Clear [facility] Urine color determinationOrd ered By: Juliet Aragon on 01-14-2025 Color (U) Yellow Yellow [facility] Urine glucose detectionOrder ed By: Juliet Aragon on 01-14-2025 Glucose Ql (U) Normal mg/dl Normal [facility] Urine leukocyte esterase det ection by dipstickOrdered By: Juliet Aragon on 01-14-2025 Leukocyte esterase Test strip Ql (U) 25 /ul High Negative [facility] Urine pHOrdered By: Juliet nolasco on 01-14-2025 pH (U) 7.0 [pH] 5.0 - 8.0 [facility] Urine testOrdered By: Juliet Aragon on 01-14-2025 HCG ( test) Ql (U) Negative [facility] Comment on above: Very dilute urine sp ecimens, as indicated by a low specificgravity, may not contain videotape sales representative levels of hCG. If is still suspected, a first morning urinespecimen should be collected 48 hours later and tested. Urine sediment bacteria coun t by microscopy (number/high power field)Ordered By: Juliet Aragon on 01-14-2025 Bacteria LM.HPF (Urine sed) [#/Area] 1 /[HPF] None Seen [facility] Urine specific gravity measu rementOrdered By: Juliet Aragon on 01-14-2025 Specific gravity (U) [Rel density] 1.010 1.002-1.030 [facility] Urine urobilinogen measureme ntOrdered By: Juliet Aragon on 01-14-2025 Urobilinogen Ql (U) 1 mg/dl High Normal [facility] White blood cell (WBC) count Ordered By: Juliet Aragon on 01-14-2025 WBC (Bld) [#/Vol] 6.7 10*3/uL 4.4-11.0 [facility] White blood cell countOrdere d By: Juliet Aragon on 01-14-2025 White blood cell count 0-5 SEEN /hpf 0-5 [facility] CBC + DIFFon 01-11-2025 Baso # 0.04 x10EE3/UL Normal 0.00 - 0.10 [facility] Comment on above: Performed By: #### 2 [id number] #### [facility],[address] [place], [place] [id number] Basophils/100 WBC (Bld) 0.3 % Normal 0.0 - 2.0 [facility] Comment on above: Performed By: #### 2 72339 #### [facility],[address] [place] [address]373 CBC + DIFF Normal [facility] Comment on above: Result Comment: CBC- COMPLETE BLOOD COUNT Performed By: #### 2 [id number] #### [facility],[address] [place] [address]00 EO # 0.09 x10EE3/UL Normal 0.00 - 0.50 [facility] Comment on above: Performed By: #### 2 81590 #### [facility],[address] [place] [address] Eosinophils/100 WBC (Bld) 0.6 % Normal 0.0 - 7.0 [facility] Comment on above: Performed By: #### 2 35779 #### [facility],[address] [place], [place] [id number] Erythrocyte distribution width (RBC) [Ratio] 14.7 % Normal 12.0 - 15.6 [facility] Comment on above: Performed By: #### 2 17036 #### [facility],[address] [place] [address] Hematocrit (Bld) [Volume fraction] 40.0 % Normal 34.0 - 46.0 [facility] Comment on above: Performed By: #### 2 09833 #### [facility],[address] [place] [address] Hemoglobin (Bld) [Mass/Vol] 14.1 g/dL Normal 12.0 - 16.0 [facility] Comment on above: Performed By: #### 2 08674 #### [facility],[address] [place] [address] Lymph # 3.29 x10EE3/UL High 0.80 - 2.80 [facility] Comment on above: Performed By: #### 2 65695 #### [facility],[address] [place] [address] Lymphocytes/100 WBC (Bld) 23.7 % Normal 20.0 - 45.0 [facility] Comment on above: Performed By: #### 2 26141 #### [facility],[address] [place], [place] [id number] MANUAL DIFF N/A Normal [facility] Comment on above: Performed By: #### 2 36284 #### [facility],[address] [place], [place] [id number] MCH (RBC) [Entitic mass] 31 pg Normal 27 - 33 [facility] Comment on above: Performed By: #### 2 41535 #### [facility],[address] [place] [address] MCHC 35 X10 3 Normal 32 - 36 [facility] Comment on above: Performed By: #### 2 26929 #### [facility],[address] [place] [address]85 MCV (RBC) [Entitic vol] 87 fL Normal 80 - 99 [facility] Comment on above: Performed By: #### 2 78312 #### [facility],[address] [place] [address] [place] # 1.23 x10EE3/UL High 0.20 - 1.00 [facility] Comment on above: Performed By: #### 2 70691 #### [facility],[address] [place] [address] MONOS % 8.9 % Normal 0.0 - 10.0 [facility] Comment on above: Performed By: #### 2 53251 #### [facility],[address] [place] [address] Morphology Usman (Bld) [Interp] N/A Normal [facility] Comment on above: Performed By: #### 2 21075 #### [facility],[address] [place] [address]4034 Neut # 9.25 x10EE3/UL High 1.50 - 7.10 [facility] Comment on above: Performed By: #### 2 81647 #### [facility],[address] [place] [address] 73814 Neutrophils/100 WBC (Bld) 66.5 % Normal 46.0 - 76.0 [facility] Comment on above: Performed By: #### 2 49905 #### [facility],[address] [place] [address]67 PLATELET 328 x10EE3/UL Normal 150 - 450 [facility] Comment on above: Performed By: #### 2 75665 #### [facility],[address] [place] [address] 40755 Platelet mean volume (Bld) [Entitic vol] 7.9 fL Normal 6.6 - 10.5 [facility] Comment on above: Result Comment: AUTO MATED DIFFERENTIAL Performed By: #### 2 37051 #### [facility],[address] [place] [address] 08457 RBC 4.60 x 10EE6/UL Normal 4.10 - 5.30 [facility] Comment on above: Performed By: #### 2 89335 #### [facility],[address] [place] [address] 68988 WBC 13.9 x 10EE3/UL High 4.5 - 10.8 [facility] Comment on above: Performed By: #### 2 75967 #### [facility],[address] [place] [address] 38437 CMP with eGFRon 01-11-2025 AGE 34 years Normal [facility] Comment on above: Performed By: #### 2 11798 #### [facility],[address] [place] [address] 61451 Albumin [Mass/Vol] 3.7 g/dL Normal 3.4 - 5.0 [facility] Comment on above: Performed By: #### 2 48148 #### [facility],[address] [place] [address] 86035 Albumin/Globulin [Mass ratio] 0.9 {ratio} Normal 0.9 - 1.6 [facility] Comment on above: Performed By: #### 2 46917 #### [facility],[address] [place] [address] ALK PHOS 80 U/L Normal 46 - 116 [facility] Comment on above: Performed By: #### 2 08979 #### [facility],[address] [place] [address] 20338 ALT [Catalytic activity/Vol] 31 U/L Normal 16 - 63 [facility] Comment on above: Performed By: #### 2 43094 #### [facility],[address] [place] [address] 80831 Anion gap [Moles/Vol] 17 mmol/L Normal 10 - 20 [facility] Comment on above: Performed By: #### 2 04722 #### [facility],[address] [place] [address] 36994 AST [Catalytic activity/Vol] 22 U/L Normal 13 - 39 [facility] Comment on above: Performed By: #### 2 60020 #### [facility],[address] [place] [address] 77525 B/C RATIO 10 ratio Normal 0 - 30 [facility] Comment on above: Performed By: #### 2 37848 #### [facility],[address] [place] [address] 67100 Bilirubin [Mass/Vol] 0.7 mg/dL Normal 0.2 - 1.0 [facility] Comment on above: Performed By: #### 2 87583 #### [facility],[address] [place] [address] 68417 Calcium [Mass/Vol] 9.5 mg/dL Normal 8.5 - 10.1 [facility] Comment on above: Performed By: #### 2 53202 #### [facility],[address] [place] [address] 03990 Chloride [Moles/Vol] 99 mmol/L Normal 98 - 107 [facility] Comment on above: Performed By: #### 2 00522 #### [facility],[address] [place] [address] 85650 CMP with eGFR Normal [facility] Comment on above: Result Comment: COMP REHENSIVE METABOLIC PANEL Performed By: #### 2 09100 #### [facility],[address] [place] [address] 70989 CO2 [Moles/Vol] 26.3 mmol/L Normal 21.0 - 32.0 [facility] Comment on above: Performed By: #### 2 94016 #### [facility],[address] [place] [address] 67612 Creatinine [Mass/Vol] 0.81 mg/dL Normal 0.55 - 1.02 [facility] Comment on above: Performed By: #### 2 89648 #### [facility],[address] [place] [address] 42720 GFR/1.73 sq M.predicted among non-blacks MDRD (S/P/Bld) [Vol rate/Area] mL/min/{1.73_m2} Normal 60 - 999 [facility] Comment on above: Performed By: #### 2 82131 #### [facility],[address] [place] [address] Result Comment: ACCO RDING TO THE NATIONAL KIDNEY DISEASE EDUCATION PROGRAM(NKDE), A NORMAL eGFR IS A VALUE GREATER THAN OR EQUAL TO 60 ML/MIN/1.73 SQ METERS. CHRONIC KIDNEY DISEASE: <60mL/MIN/1.73 SQ METERS KIDNEY FAILURE: <15mL/MIN/1.73 SQ METERS THIS TEST SHOULD ONLY BE USED FOR PATIENTS 18 YEARS OF AGE AND OLDER. Globulin (S) [Mass/Vol] 3.9 g/dL High 1.5 - 3.8 [facility] Comment on above: Performed By: #### 2 69101 #### [facility],[address] [place] [address] 10079 Glucose [Mass/Vol] 144 mg/dL High 74 - 106 [facility] Comment on above: Performed By: #### 2 94718 #### [facility],[address] [place] [address] 02085 Potassium [Moles/Vol] 3.1 mmol/L Low 3.5 - 5.1 [facility] Comment on above: Performed By: #### 2 00791 #### [facility],[address] [place] [address] 61529 Protein [Mass/Vol] 7.6 g/dL Normal 6.4 - 8.2 [facility] Comment on above: Performed By: #### 2 56539 #### [facility],[address] [place] [address] 06954 Sodium [Moles/Vol] 139 mmol/L Normal 136 - 145 [facility] Comment on above: Performed By: #### 2 22162 #### [facility],[address] [place] [address] 07561 Urea nitrogen [Mass/Vol] 8 mg/dL Normal 7 - 18 [facility] Comment on above: Performed By: #### [id number] #### [facility],[address] [place] [id number] ED MED ADMINISTRATION DETAIL on 01-11-2025 ED MED ADMINISTRATION DETAIL Operations Lead Medication Administration Record [address] [place] [address] [id number] 01/11/2025 Patient: CECILIA SENIOR Sex: Female : 1990 Age: 34y MEASUREMENTS: Wt: 119.3 kg, Ht/Spencer: 69.0 in, BMI: 38.84 ALLERGIES: Valium, aspirin, trazodone Medication Ordered Medication Administration Date/Time IV NS 0.9 % 1000 13:01/11 IV NS 0.9 % 1000 mL started in bag#1 1000 mL at Started mL at 999 mL/hr 999 mL/hr via Site# 1. Allergies verified and confirmed 5 rights. IV 13:23 01/11/2025 (NOW x1) patency established. IV site checked: no pain, redness, or swelling. Chung Mulligan R.N. IV flushed thoroughly pre-medication administration. Information Stopped reviewed with patient. Verbalizes understanding. - 13:23 Chung 13:24 01/11/2025 Debi Mulligan R.N. Scanned 13:01/11 Medication Discontinued: bag #1. Total amount infused: 5 mL. IV patency established. IV site checked: no pain, redness, or swelling. IV flushed thoroughly post-medication administration. - 13:29 Chung Mulligan R.N. 1 of 1 Normal [facility] ED NURSES CLINICAL NOTEon ED NURSES CLINICAL NOTE Nurse Narrative Nurse Clinical Narrative [address] [address] [id number] 01/11/2025 12:29:00 [id number] Sex[facility] Female : 1990 Age: 34y Disposition: Left AMA Left Against Medical Advice Disposition Decision Time: 13:01/11/2025 Departure Time: 13:01/11/2025 TRIAGE Arrived by private vehicle. Historian: (patient). Accompanied by family. Triage time: 12:32 01/11/2025. Acuity: LEVEL 3. Chief Complaint: ABDOMINAL PAIN. Alert. No acute distress. (hyperventilating). Onset. (4 ago). The patient has had abdominal pain. SEPSIS SCREEN: NEGATIVE. SIRS criteria negative. No possible sources of infection. -- 12:52 01/11/25 EDT Ritu Flores R.N. 12:44 01/11/25. BP: 129/100 MAP: 110. HR: 116. RR: 22. O2 saturation: 99% Temperature: 98.4 F. Pain level now 1010. -- 12:54 01/11/25 EDT Ritu Flores R.N. Measurements: 12:48 01/11/25 Wt: 119.3 kg, Ht/Spencer: 69.0 in, BMI: 38.84 -- 12:48 01/11/25 EDT Ritu Flores R.N. Medications: Keppra oral -- 16:36 01/11/25 EDT Chung Mulligan R.N. 1 of 4 Nurse Narrative Allergies: aspirin -- 12:43 01/11/25 EDT Ritu Flores R.N. trazodone -- 12:43 01/11/25 EDT Ritu Flores R.N. Valium -- 12:44 01/11/25 EDT Ritu Flores R.N. Problems: Endometriosis -- 12:49 01/11/25 EDT Ritu Flores R.N. Fibromyalgia -- 12:50 01/11/25 EDT Ritu Flores R.N. Anxiety disorder -- 12:50 01/11/25 EDT Ritu Flores R.N. Depression -- 12:50 01/11/25 VANDANAT Ritu Flores R.N. Seizure Disorder -- 12:51 01/11/25 VANDANAT Ritu Flores R.N. Surgeries: Cholecystectomy -- 12:51 01/11/25 MEENU Flores R.N. ectopic -- 12:51 01/11/25 VANDANAT Ritu Flores R.N. History 12:32 01/11/25. PAST MEDICAL HX: Denies current . SOCIAL HX: Current every day smoker. Drug use: marijuana. No alcohol use. ABUSE ASSESSMENT: The patient answered yes to the question(s) Do you feel safe in your home? and no to the question(s) Are you afraid to go home?. SELF HARM ASSESSMENT: Self harm assessment was performed. The patient answered no to the question(s) Have you recently felt down, depressed, or hopeless? and Do you have thoughts of harming or killing yourself?. FALL RISK ASSESSMENT: Fall risk assessment completed. No risk factors identified. -- 12:52 01/11/25 MEENU Flores R.N. 12:44 01/11/25. SOCIAL HX: The patient has not traveled outside the [place] Infectious disease exposure: No infectious disease exposure. -- 12:54 01/11/25 VANDANAT Ritu Flores R.N. 2 of 4 Nurse Narrative Interventions 12:32 01/11/25. Identification band on patient. Advanced care plan discussed with patient. Patient does not have advanced directive. -- 12:52 01/11/25 VANDANAT Ritu Flores R.N. PHYSICAL ASSESSMENT 13:01 01/11/25. Ambulatory to room. GENERAL / NEURO / PSYCH: Alert. Oriented X 4. Appears anxious. HEENT: Mucous membranes are pink. RESPIRATORY: Mild respiratory distress. Breath sounds within normal limits. CVS: Cardiac rhythm: sinus tachycardia. Capillary refill less than 2 seconds. GI / : Abdominal tenderness in the right upper quadrant, epigastric area, left upper quadrant and left side of the abdomen. Bowel sounds within normal limits. SKIN: Skin is warm and dry. -- 13:16 01/11/25 EDT Ritu Flores R.N. NURSING PROGRESS NOTES 13:01/11/25. Site #1 started via IV in the right antecubital space with a 20g angiocath with aseptic technique and good blood return; 1 attempt. Blood drawn: rainbow set tube(s). Labeled in the presence of the patient and sent to the lab. Saline lock flushed with 5 mL saline. -- 13:01/11/25 EDT Chung Mulligan R.N. 13:01/11/25. IV NS 0.9 % 1000 mL started in bag#1 1000 mL at 999 mL/hr via Site# 1. Allergies verified and confirmed 5 rights. IV patency established. IV site checked: no pain, redness, or swelling. IV flushed thoroughly pre-medication administration. Information reviewed with patient. Verbalizes understanding. -- 13:01/11/25 EDT Chung Mulligan R.N. 13:24 01/11/25. IV NS 0.9 %: Medication Discontinued. bag #1. Total amount infused: 5 mL. IV patency established. IV site checked: no pain, redness, or swelling. IV flushed thoroughly post-medication administration. -- 13:29 01/11/25 EDT Chung Mulligan R.N. DISPOSITION / DISCHARGE 13:01/11/25. Site #1 removed upon discharge. Catheter intact. Bandage applied. -- 13:30 01/11/25 EDT Chung Mulligan R.N. Departure time: 13:01/11/2025. Condition at departure: unchanged. The patient left prior to discharge education being provided. The patient left the Emergency Department against medical advice and without completion of treatment; patient was accompanied by spouse. T (more content not included)... Normal [facility] ED ORDER SHEET (CPOE ONLY)on 01-11-2025 ED ORDER SHEET (CPOE ONLY) Order Sheet Order Sheet [address] [place] [address] [id number] 01/11/2025 Patient: CECILIA SENIOR Sex: Female : 1990 Age: 34y MEASUREMENTS: Wt: 119.3 kg, Ht/Spencer: 69.0 in, BMI: 38.84 ALLERGIES: Valium, aspirin, trazodone MEDICATION/IV/DRIP/F LUID ORDERS Order Description Priority Entered Acknowledged Completed IV NS 0.9 %1000 mL at 999 12:34 01/11/2025 13:14 13:23 mL/hr (NOW x1) Isabel Bliss, 01/11/2025 01/11/2025 Sandra Jimenez R.N. R.N. LAB ORDERS Order Description Priority Entered Acknowledged Collected Completed CBC w Diff Stat Stat 12:34 01/11/2025 13:14 01/11/2025 13:14 01/11/2025 Ritu Forrest D.O., R.N. [place], R.N. CMP Stat Stat 12:34 01/11/2025 13:14 01/11/2025 13:14 01/11/2025 Ritu Forrest D.O., R.N. [place], R.N. Urinalysis Stat Stat 12:34 01/11/2025 13:14 01/11/2025 Ritu Forrest 1 of 3 Order Sheet Fara Flores R.N. EKG - ED Stat Stat 12:34 01/11/2025 12:44 01/11/2025 12:44 01/11/2025 Ritu Forrest D.O., R.N. [place], R.N. Lipase Stat Stat 12:34 01/11/2025 13:14 01/11/2025 13:14 01/11/2025 Ritu Forrest D.O., R.N. [place], R.N. Urine - HCG Stat 12:34 01/11/2025 13:14 01/11/2025 Stat Ritu Forrest D.O., R.N. DIAGNOSTIC STUDY ORDERS Order Description Priority Entered Acknowledged Completed STAFF ORDERS Order Description Priority Entered Acknowledged Collected Completed IV Saline Lock 12:34 01/11/2025 13:14 01/11/2025 13:14 01/11/2025 Ritu Forrest D.O., R.N. [place], R.N. Vital Signs every 30 12:34 01/11/2025 13:14 01/11/2025 13:14 01/11/2025 minutes Ritu Forrest D.O., R.N. [place], R.N. [employer] Consultant 12:34 01/11/2025 13:14 01/11/2025 13:14 01/11/2025 Ritu Forrest D.O., R.N. [place], R.N. 2 of 3 Order Sheet Pulse Oximeter 12:34 01/11/2025 13:14 01/11/2025 13:14 01/11/2025 Ritu Forrest D.O., R.N. [place], R.N. Oxygen titrate to 92% 12:34 01/11/2025 13:14 01/11/2025 13:14 01/11/2025 Ritu Forrest D.O., R.N. [place], Debi [Electronically signed by Isabel Bliss D.O. (01/11/2025 17:15 EDT)] 3 of 3 Normal [facility] ED PHYSICIAN CLINICAL REPORT on 01-11-2025 ED PHYSICIAN CLINICAL REPORT Narrative Physician Clinical Narrative [address] [address] [id number] 01/11/2025 12:29:00 Patient: CECILIA SENIOR Sex: Female : 1990 Age: 34y Disposition: Left AMA Left Against Medical Advice Disposition Decision Time: 13:01/11/2025 Departure Time: 13:01/11/2025 Measurements Wt: 119.3 kg, Ht/Spencer: 69.0 in, BMI: 38.84 Initial Vital Sign Measured Time BP MAP HR RR O2Sat ETCO2 Temp Pain GCS RTS 12:44 01/11/2025 129/100 110 116 22 99% 98.4 F 10 Time Seen: 12:23 01/11/2025. Arrived- By private vehicle. Historian- patient. Independent historian- family. HISTORY OF PRESENT ILLNESS Chief Complaint: ABDOMINAL PAIN. It is described as pain. This started 5 days; patient came in complaining of the abdominal pain in her left upper quadrant where she thought she felt a mass or lump. Says he had the pain for 5 days when she came in she was having severe pain was having what appeared to be an anxiety attack she does have anxiety issues and she presents to the emergency department with her fiance. She has had many miscarriages she states 17. And wants to get a hysterectomy. and is still present. REVIEW OF SYSTEMS CVS: No chest pain. THROAT: No sore throat. NEUROLOGICAL: No headache. CONSTITUTIONAL: No fever or chills. : No difficulty with urination. GI: No constipation. 1 of 9 Narrative PAST HISTORY See nurses notes. Anxiety disorder Depression Endometriosis Fibromyalgia Seizure Disorder Surgeries: Cholecystectomy ectopic Medications: Keppra oral Allergies: aspirin trazodone Valium SOCIAL HISTORY Current every day smoker. Drug use: marijuana. ADDITIONAL NOTES The nursing notes have been reviewed. PHYSICAL EXAM Appearance: Alert. Oriented X3. No acute distress. Anxious. Appears to be in pain. Eyes: Pupils equal, round and reactive to light. Eyes normal inspection. ENT: Ears normal. Nose normal. Neck: Normal inspection. Neck supple. CVS: Normal heart rate and rhythm. Heart sounds normal. Respiratory: No respiratory distress. Breath sounds normal. 2 of 9 Narrative Abdomen: Soft. Tenderness in the left upper quadrant and left side of the abdomen. No organomegaly. No mass. No rebound tenderness. Back: Normal inspection. Skin: Skin warm and dry. Normal skin color. Normal skin turgor. Extremities: Extremities exhibit normal ROM. No lower extremity edema. Neuro: Oriented X 3. No motor deficit. LABS, X-RAYS, AND EKG 12-LEAD EKG: EKG time: 12:26 01/11/2025. No acute process. Normal EKG. Rate: 94. Normal axis. Normal ST and T waves. The study has been interpreted contemporaneously by me. Interpretation time: 12:28 01/11/2025. Laboratory Tests: CBC + DIFF Final MAK: 01/11/2025 13:09:00 EDT MsgRcvd: 01/11/2025 13:32 EDT Lab Test Result Reference Status Received Comments 01/11/2025 13:32 CBC-COMPLETE CBC + DIFF Final EDT BLOOD COUNT 13.9 x 10/UL 01/11/2025 13:32 WBC 4.5 - 10.8 Final Above high normal EDT 01/11/2025 13:32 RBC 4.60 x 10/UL 4.10 - 5.30 Final EDT 01/11/2025 13:32 HEMOGLOBIN 14.1 g/dl 12.0 - 16.0 Final EDT 01/11/2025 13:32 HEMATOCRIT 40.0 % 34.0 - 46.0 Final EDT 01/11/2025 13:32 MCV 87 fl 80 - 99 Final EDT 3 of 9 Narrative Lab Test Result Reference Status Received Comments 01/11/2025 13:32 MCH 31 pg 27 - 33 Final EDT 01/11/2025 13:32 MCHC 35 X10 3 32 - 36 Final EDT 01/11/2025 13:32 RDW/CV 14.7 % 12.0 - 15.6 Final EDT 01/11/2025 13:32 PLATELET 328 x10/UL 150 - 450 Final EDT 01/11/2025 13:32 AUTOMATED MPV 7.9 fl 6.6 - 10.5 Final EDT DIFFERENTIAL 01/11/2025 13:32 NEUT % 66.5 % 46.0 - 76.0 Final EDT 01/11/2025 13:32 LYMPH % 23.7 % 20.0 - 45.0 Final EDT 01/11/2025 13:32 MONOS % 8.9 % 0.0 - 10.0 Final EDT 01/11/2025 13:32 EO % 0.6 % 0.0 - 7.0 Final EDT 01/11/2025 13:32 BASO % 0.3 % 0.0 - 2.0 Final EDT 3.29 x10/UL 01/11/2025 13:32 Lymph # 0.80 - 2.80 Final Above high normal EDT 9.25 x10/UL 01/11/2025 13:32 Neut # 1.50 - 7.10 Final Above high normal EDT 1.23 x10/UL 01/11/2025 13:32 [place] # 0.20 - 1.00 Final Above high normal EDT 4 of 9 Narrative Lab Test Result Reference Status Received Comments 01/11/2025 13:32 EO # 0.09 x10/UL 0.00 - 0.50 Final EDT 01/11/2025 13:32 Baso # 0.04 x10/UL 0.00 - 0.10 Final EDT 01/11/2025 13:32 MANUAL DIFF N/A New Order EDT 01/11/2025 13:32 MORPHOLOGY N/A New Order EDT CMP with eGFR Final MAK: 01/11/2025 13:09:00 EDT MsgRcvd: 01/11/2025 13:53 EDT Lab Test Result Reference Status Received Comments COMPREHENSIVE 01/11/2025 CMP with eGFR Final METABOLIC 13:53 EDT PANEL 01/11/2025 SODIUM 139 mmol/l 136 - 145 Final 13:53 EDT 3.1 m (more content not included)... Normal [facility] ED SUPER BILLon 01-11-2025 ED SUPER BILL [address] [address] [id number] 01/11/2025 Patient: CECILIA SENIOR Sex: Female : 1990 Age: 34y Item Professional Category Description Facility Code Code Quantity Fee Total Nurse/E/M EMERGENCY [id number] 1 $0.00 $0.00 DEPARTMENT VISIT HIGH/URGENT SEVERITY (35423-25) Grand Total $0.00 Providers Isabel Bliss D.O. Chief Complaint ABDOMINAL PAIN. Principal Diagnosis Acute left upper quadrant abdominal pain. ICD-10 Codes 1 of 2 [facility] R10.12: Left upper quadrant pain 2 of 2 Normal [facility] ED VISIT SUMMARYon ED VISIT SUMMARY Visit Overview Visit Overview [address] [address] [id number] 01/11/2025 Patient: CECILIA SENIOR Sex: Female : 1990 Age: 34y 01/11/2025 05:15 PM EDT ED Arrival:12:29 01/11/2025 EDT Status:not Recent Travel:no Language:eng Adv Directive:No Isolation Status: Ethnicity:N Fall Risk:no risk Infectious Disease Exposure:no Measurements:5'9 / 175.3 Self-Harm Status:risk Sepsis Screen:negative cm 263.0 lb / 119.3 kg Chief Complaint:ABDOMINAL PAIN, (4 ago), and (hyperventilating) ALLERGIES aspirin trazodone Valium HOME MEDICATIONS Keppra oral PAST MEDICAL HISTORY / PROBLEMS 1 of 3 Visit Overview Anxiety disorder Depression Endometriosis Fibromyalgia See nurses notes Seizure Disorder PAST SURGICAL HISTORY Cholecystectomy ectopic SOCIAL HISTORY Smoking status: Yes Alcohol use: No Drug use: Yes ED COURSE MEDICATIONS GIVEN IN EMERGENCY DEPARTMENT 13:23 01/11/25 IV NS 0.9 % 1000 mL 999 mL/hr IV SITE INFORMATION INTAKE OUTPUT REASSESMENT (most recent) 13:01 01/11/25. Ambulatory to room. GENERAL / NEURO / PSYCH: Alert. Oriented X 4. Appears anxious. HEENT: Mucous membranes are pink. RESPIRATORY: Mild respiratory distress. Breath sounds within normal limits. CVS: Cardiac rhythm: sinus tachycardia. Capillary refill less than 2 seconds. GI / : Abdominal tenderness in the right upper quadrant, epigastric area, left upper quadrant and left side of the abdomen. Bowel sounds within normal limits. SKIN: Skin is warm and dry. VITAL SIGNS First Vitals Last Vitals 2 of 3 Visit Overview First Vitals Last Vitals Temp 12:44 01/11/25 98.4 F Temp 12:44 01/11/25 98.4 F BP 12:44 01/11/25 129/100 BP 12:44 01/11/25 129/100 HR 12:44 01/11/25 116 HR 12:44 01/11/25 116 RR 12:44 01/11/25 22 RR 12:44 01/11/25 22 O2 Sat 12:44 01/11/25 99% O2 Sat 12:44 01/11/25 99% Pain 12:44 01/11/25 10 Pain 12:44 01/11/25 10 ETCO2 12:44 01/11/25 ETCO2 12:44 01/11/25 GCS 12:44 01/11/25 GCS 12:44 01/11/25 RTS 12:44 01/11/25 RTS 12:44 01/11/25 PROCEDURES NURSING INTERVENTIONS LABS / STUDIES LABS / STUDIES ORDERED CBC w Diff CMP EKG - ED Lipase Urinalysis Urine - HCG CLINICAL IMPRESSION ACUTE LEFT UPPER QUADRANT ABDOMINAL PAIN 3 of 3 Normal [facility] ED VITALS FLOW SHEETon 01-11 ED VITALS FLOW SHEET Vitals Vital Sign Flow Sheet [address] [address] [id number] 01/11/2025 Patient: CECILIA SENIOR Sex: Female : 1990 Age: 34y Measurements Wt: 119.3 kg, Ht/Spencer: 69.0 in, BMI: 38.84 Measured Time BP MAP HR RR O2Sat ETCO2 Temp Pain GCS RTS 12:44 01/11/2025 129/100 110 116 22 99% 98.4 F 10 1 of 1 Normal [facility] LIPASEon 01-11-2025 Lipase [Catalytic activity/Vol] 45.0 U/L Normal 15.0 - 78.0 [facility] Comment on above: Result Comment: *PLE ASE NOTE THAT RANGES FOR LIPASE HAVE CHANGED OF 08/20/23 DUE TO AN ASSAY UPDATE BY THE REED POLISHER.THE NEW ASSAY RANGE IS 6-250 U/L, WITH A REFERENCE RANGE OF 16-77 U/L. Performed By: #### [id number] #### [facility],[address] [place], [place] [id number] Absolute lymphocyte countOrd ered By: Adi Quezada on 09-16-2024 Lymphocytes Auto (Unsp spec) [#/Vol] 3.49 10*3/uL 0.83-4.51 [facility] Absolute neutrophil countOrd ered By: Adi Quezada on 09-16-2024 Neutrophils (Bld) [#/Vol] 8.6 10*3/uL High 2.0-7.7 [facility] Automated lymphocyte count a s percentage of total leukocytesOrdered By: Adi Quezada on 09-16-2024 Lymphocytes/100 WBC Auto (Unsp spec) 26.6 % 19-41 [facility] Basic Metabolic Profile (BMP )on 09-16-2024 BUN/CRE 13.9 RATIO Normal 10-20 [facility] Comment on above: Performed By: #### L 100.0100, L500.2500 #### [facility] [address] [place], [address] CA,Total 9.6 mg/dL Normal 8.5-10.1 [facility] Comment on above: Performed By: #### L 100.0100, L500.2500 #### [facility] [address] [place], [address] Chloride [Moles/Vol] 106 mmol/L Normal 98-107 [facility] Comment on above: Performed By: #### L 100.0100, L500.2500 #### [facility] [address] [place], [address] CO2 [Moles/Vol] 24.0 mmol/L Normal 21.0-32.0 [facility] Comment on above: Performed By: #### L 100.0100, L500.2500 #### [facility] [address] [place], [address] Creatinine [Mass/Vol] 0.72 mg/dL Normal 0.55-1.02 [facility] Comment on above: Result Comment: The validity of the calculated GFR GFRAA in patients over 70 years has not been determined. Clinical correlation is essential. Performed By: #### L 100.0100, L500.2500 #### [facility] [address] [place], [address] ECRCL 145.98 ml/min Normal [facility] Comment on above: Performed By: #### L 100.0100, L500.2500 #### [facility] [address] [place], [address] EST GFR - AA 117 mL/min Normal >60 [facility] Comment on above: Result Comment: Afri can [place] GFR Calc Performed By: #### L 100.0100, L500.2500 #### [facility] [address] [place], [address] GAP 11 Normal 5-15 [facility] Comment on above: Performed By: #### L 100.0100, L500.2500 #### [facility] [address], [address] GFR/1.73 sq M.predicted among non-blacks MDRD (S/P/Bld) [Vol rate/Area] 97 mL/min/{1.73_m2} Normal >60 [facility] Comment on above: Result Comment: Non- GFR Calc Performed By: #### L 100.0100, L500.2500 #### [facility] [address] [place], [address] Glucose [Mass/Vol] 124 mg/dL High 74-106 [facility] Comment on above: Result Comment: Fast ing Glucose result from 100 to 125 mg/dL suggests IMPAIRED HOMEOSTASIS per A.D.A. criteria. Performed By: #### L 100.0100, L500.2500 #### [facility] [address] [place], [address] Potassium [Moles/Vol] 3.4 mmol/L Low 3.5-5.1 [facility] Comment on above: Performed By: #### L 100.0100, L500.2500 #### [facility] [address] [place], [address] Sodium [Moles/Vol] 141 mmol/L Normal 136-145 [facility] Comment on above: Performed By: #### L 100.0100, L500.2500 #### [facility] [address] [place], [address] Urea nitrogen [Mass/Vol] 10 mg/dL Normal 7-18 [facility] Comment on above: Performed By: #### L 100.0100, L500.2500 #### [facility] [address] [place], [address] Basophil percentageOrdered B y: Adi Quezada on 09-16-2024 Basophils/100 WBC (Bld) 0.3 % 0-1 [facility] Bilirubin Test strip Ql (U)O rdered By: Adi Quezada on 09-16-2024 Bilirubin Ql (U) 1 mg/dL High Negative [facility] Comment on above: COLOR OF URINE MAY A FFECT DIPSTICK RESULTS. Blood urea nitrogen (BUN)/cr eatinine ratioOrdered By: Adi Mylesedmundo on 09-16-2024 Urea nitrogen/Creatinine [Mass ratio] 13.9 mg/mg 10-20 [facility] CBC W/Diff, Automatedon 08-24 Absolute Lymph 3.49 X10 3/uL Normal 0.83-4.51 [facility] Comment on above: Performed By: #### L 100.0100, L500.2500 #### [facility] [address] [place], [address] Absolute Neut 8.6 X10 3/uL High 2.0-7.7 [facility] Comment on above: Performed By: #### L 100.0100, L500.2500 #### [facility] [address] [place], [address] Basophils/100 WBC (Bld) 0.3 % Normal 0-1 [facility] Comment on above: Performed By: #### L 100.0100, L500.2500 #### [facility] [address] [place], [address] Eosinophils/100 WBC (Bld) 1.2 % Normal 0-5 [facility] Comment on above: Performed By: #### L 100.0100, L500.2500 #### [facility] [address] [place], [address] Erythrocyte distribution width (RBC) [Ratio] 15.1 % High 11.6-14.6 [facility] Comment on above: Performed By: #### L 100.0100, L500.2500 #### [facility] [address] [place], [address] Hematocrit (Bld) [Volume fraction] 40.6 % Normal 37-47 [facility] Comment on above: Performed By: #### L 100.0100, L500.2500 #### [facility] [address] [place], [address] Hemoglobin (Bld) [Mass/Vol] 13.5 g/dL Normal 12.0-15.0 [facility] Comment on above: Performed By: #### L 100.0100, L500.2500 #### [facility] [address] [place], [address] IG% 0.400 Normal 0.0-0.9 [facility] Comment on above: Result Comment: IG% - Immature Granulocytes (promyelocytes, myelocytes and metamyelocytes) > 1% indicates that a LEFT SHIFT is Present. Performed By: #### L 100.0100, L500.2500 #### [facility] [address] [place], [address] Lymphocytes/100 WBC (Bld) 26.6 % Normal 19-41 [facility] Comment on above: Performed By: #### L 100.0100, L500.2500 #### [facility] [address] [place], [address] MCH (RBC) [Entitic mass] 29.0 pg Normal 27.0-32.0 [facility] Comment on above: Performed By: #### L 100.0100, L500.2500 #### [facility] [address] [place], [address] MCHC (RBC) [Mass/Vol] 33.3 g/dL Normal 32-36 [facility] Comment on above: Performed By: #### L 100.0100, L500.2500 #### [facility] [address] [place], [address] MCV (RBC) [Entitic vol] 87.1 fL Normal 81-99 [facility] Comment on above: Performed By: #### L 100.0100, L500.2500 #### [facility] [address] [place], [address] Monocytes/100 WBC (Bld) 6.3 % Normal 0-10 [facility] Comment on above: Performed By: #### L 100.0100, L500.2500 #### [facility] [address] [place], [address] Neutrophils/100 WBC (Bld) 65.2 % Normal 47-70 [facility] Comment on above: Performed By: #### L 100.0100, L500.2500 #### [facility] [address] [place], [address] Nucleated RBC (Bld) [#/Vol] 0 10*3/uL Normal 0-5 [facility] Rehabilitation Comment on above: Performed By: #### L 100.0100, L500.2500 #### [facility] [address] [place], [address] Platelet mean volume (Bld) [Entitic vol] 9.8 fL Normal 6.2-12.0 [facility] Comment on above: Performed By: #### L 100.0100, L500.2500 #### [facility] [address] [place], [address] Platelets (Bld) [#/Vol] 375 10*3/uL Normal 150-450 [facility] Comment on above: Performed By: #### L 100.0100, L500.2500 #### [facility] [address] [place], [address] RBC (Bld) [#/Vol] 4.66 10*6/uL Normal 4.2-5.4 [facility] Comment on above: Performed By: #### L 100.0100, L500.2500 #### [facility] [address] [place], [address] RDW SD 48.5 fl High 35.1-43.9 [facility] Comment on above: Performed By: #### L 100.0100, L500.2500 #### [facility] [address] [place], [address] WBC (Bld) [#/Vol] 13.1 10*3/uL High 4.4-11.0 [facility] Comment on above: Performed By: #### L 100.0100, L500.2500 #### [facility] [address] [place], [address] Carbon dioxide measurementOr dered By: Adi Quezada on 09-16-2024 CO2 [Moles/Vol] 24.0 mmol/L 21.0-32.0 [facility] Chloride measurementOrdered By: Adi Quezada on 09-16-2024 Chloride [Moles/Vol] 106 mmol/L 98-107 [facility] Emergency Department Summary on 09-16-2024 Emergency Department Summary [facility] Medical Records Department [address] [place] [address] Emergency Department Summary 09/16/24 MR#: [id number] Acct: [id number] Name: CECILIA ABBASI Rep #: [id number] : 1990 34 From: Adi Quezada DO PCP: Patrick Mcdermott NP-Fidel Status:DEP ER Location: ED HPI HPI - GI History of Present Illness Chief Complaint: Nausea/Vomiting/Diar brenna Informant: patient Abdominal Pain/Flank Pain Onset: Days (3) Context: Gradual Onset Timing: Continuous Quality: Stabbing Location: RLQ and LLQ Worsened by: Nothing Relieved by: Nothing Nausea/Vomiting/Emes is GI Symptom: Positive for Nausea and Vomiting Onset: Days (3) Diarrhea/Melena/Walter tochezia GI Symptom: Positive for Diarrhea; Negative for Melena or Hematochezia Onset: Days (3) Associated Symptoms Associated Symptoms: Negative for Dysuria, Frequency or Hematuria LMP: Current Narrative Narrative: Patient presents with abdominal pain, nausea, vomiting, and diarrhea that has been getting worse over the past 3 days. Patient states that this is similar to prior symptoms she gets whenever she starts her menstrual period. Patient admits to some diarrhea but denies any melena or hematochezia. Patient admits to some nausea and vomiting but denies any hematemesis or coffee-ground emesis patient describes her pain as stabbing. Patient states it is mainly over the lower abdomen. Patient states it has been constant. Patient states nothing makes it better and nothing makes it worse. PFSH PFSH Medical History PTSD (post-traumatic stress disorder) Bipolar 1 disorder Anxiety Osteoarthritis of right knee Right knee pain Home Medications ???Medication ???Instructions ???Recorded ???Last Taken ???Type ondansetron 4 mg disintegrating 4 mg PO Q8H PRN PRN Nausea #10 tabs 09/16/24 Unknown Rx tablet Allergy/AdvReac Type Severity Reaction Status Date / Time trazodone Allergy Severe Anaphylaxis Verified 09/16/24 16:04 sulfamethoxazole (From Allergy Intermediate Rash Verified 09/16/24 16:04 Bactrim) trimethoprim (From Bactrim) Allergy Intermediate Rash Verified 09/16/24 16:04 aspirin Allergy Swelling Verified 09/16/24 16:04 peanut (peanuts) Allergy Other Verified 09/16/24 16:04 diazepam (From Valium) AdvReac Other Verified 09/16/24 16:04 Family History Mother Heart disease Father Seizures Surgical History H/O laparoscopy History of cholecystectomy Social History household members: spouse and family Smoking Status: Current every day smoker tobacco type: cigarettes and e-cigarettes alcohol intake: never ROS ROS ED Constitutional Constitutional ED: Denies chills or fever(s) Eyes Eyes: Denies blurry vision or change in vision ENT ENT ED: Denies rhinorrhea or sore throat Cardiovascular Cardiovascular: Reports chest pain; Denies palpitations Respiratory/Chest Respiratory/Chest: Denies cough or dyspnea Gastrointestinal Gastrointestinal: Reports abdominal pain; Denies nausea or vomiting Genitourinary Genitourinary ED: Denies dysuria or hematuria Musculoskeletal Musculoskeletal: Denies back pain or neck pain Integumentary Denies abscess or rash Neurologic Neurologic: Denies headache(s) or weakness Allergic/Immunologic Allergic/Immunologic ED: Denies mouth swelling or urticaria EXAM Physical Exam Const Vital Signs: 09/16/24 16:03 09/16/24 18:02 Temperature 97.6 F L Temperature Source Temporal Pulse Rate 80 87 Respiratory Rate 16 18 Blood Pressure 194/107 H 145/69 H Blood Pressure Mean 136 94 Pulse Ox 100 98 Oxygen Delivery Method Room Air Room Air Positive well nourished and well developed Constitutional Narrative: BMI 37.3 General Appearance ED: well developed and NAD HEENT Reports moist mucous membranes Neck supple and no JVD Resp normal respiratory effort and clear to auscultation bilaterally Cardio regular rate and regular rhythm GI non-distended Palpation: soft and tender epigastric, LLQ, RLQ, LUQ, RUQ, periumbilical and suprapubic Neuro CN's II-XII intact bilaterally, moves all extremities and no sensory deficits noted Sensorium / Orientation: alert Motor Exam: strength 5/5 throughout Psych mental status grossly normal MDM MDM MDM Narrative Medical decision making narrative: Differential diagnosis includes gastroenteritis, electrolyte abnormality, dehydration, viral illness, urinary tract infection, and . CBC will be obtained to assess for leukocytosis and anemia. Basic metabolic profile will be obtained to assess for electrolyte abnormal (more content not included)... Normal [facility] Eosinophil percentageOrdered By: Adi Quezada on 09-16-2024 Eosinophils/100 WBC (Bld) 1.2 % 0-5 [facility] Erythrocyte distribution wid th ratioOrdered By: Adi Quezada on 09-16-2024 Erythrocyte distribution width (RBC) [Ratio] 15.1 % High 11.6-14.6 [facility] Erythrocyte distribution wid th standard deviationOrdered By: Adi Quezada on 09-16-2024 Erythrocyte distribution width (RBC) [Ratio] 48.5 fl High 35.1-43.9 [facility] Glomerular filtration rate ( GFR) estimationOrdered By: Adi Quezada on 09-16-2024 GFR/1.73 sq M.predicted among non-blacks MDRD (S/P/Bld) [Vol rate/Area] 97 mL/min/{1.73_m2} >60 [facility] Comment on above: Non- GFR Calc Glucose measurementOrdered B y: Adi Quezada on 09-16-2024 Glucose [Mass/Vol] 124 mg/dL High 74-106 [facility] Comment on above: Fasting Glucose resu lt from 100 to 125 mg/dL suggests IMPAIRED HOMEOSTASIS per A.D.A. criteria. Hematocrit Auto (Bld) [Volum e fraction]Ordered By: Adi Quezada on 09-16-2024 Hematocrit (Bld) [Volume fraction] 40.6 % 37-47 [facility] Hemoglobin measurementOrdere d By: Adi Quezada on 09-16-2024 Hemoglobin (Bld) [Mass/Vol] 13.5 g/dL 12.0-15.0 [facility] Immature granulocytes/100 WB C Auto (Bld)Ordered By: Adi Quezada on 09-16-2024 Immature granulocytes/100 WBC (Bld) 0.400 % 0.0-0.9 [facility] Comment on above: IG% - Immature Granu locytes (promyelocytes, myelocytes and metamyelocytes) > 1% indicates that a LEFT SHIFT is Present. Ketones Test strip Ql (U)Ord ered By: Adi Quezada on 09-16-2024 Ketones Ql (U) 150 mg/dl Abnormal Negative [facility] Comment on above: CRITICAL VALUE *HCRI [facility]24 1900 Jennifer Valerio.RESULTS READ BACK BY SAME. MCV (mean corpuscular volume ) determinationOrdered By: Adi Quezada on 09-16-2024 MCV (RBC) [Entitic vol] 87.1 fL 81-99 [facility] Mean corpuscular hemoglobin (MCH) determinationOrdered By: Adi Quezada on 09-16-2024 MCH (RBC) [Entitic mass] 29.0 pg 27.0-32.0 [facility] Mean corpuscular hemoglobin concentration (MCHC) determinationOrdered By: Adi Quezada on 09-16-2024 MCHC (RBC) [Mass/Vol] 33.3 g/dL 32-36 [facility] Mean platelet volume determi nationOrdered By: Adi Quezada on 09-16-2024 Platelet mean volume (Bld) [Entitic vol] 9.8 fL 6.2-12.0 [facility] Microscopic analysis of urin e for red blood cells (RBC)Ordered By: Adi Quezada on 09-16-2024 Microscopic analysis of urine for red blood cells (RBC) > 100 SEEN /hpf 0-5 [facility] Monocyte percentageOrdered B y: Adi Quezada on 09-16-2024 Monocytes/100 WBC (Bld) 6.3 % 0-10 [facility] Mucus LM Ql (Urine sed)Order ed By: Adi Quezada on 09-16-2024 Mucus Ql (Urine sed) 0 SEEN /hpf [facility] Neutrophil percentageOrdered By: Adi Quezada on 09-16-2024 Neutrophils/100 WBC (Bld) 65.2 % 47-70 [facility] Nitrite Test strip Ql (U)Ord ered By: Adi Quezada on 09-16-2024 Nitrite Ql (U) Positive High Negative [facility] Nucleated red blood cell per centageOrdered By: Adi Quezada on 09-16-2024 Nucleated RBC/100 WBC (Bld) [Ratio] 0 % 0-5 [facility] Platelet countOrdered By: Sherman Quezada on 09-16-2024 Platelets (Bld) [#/Vol] 375 10*3/uL 150-450 [facility] Potassium measurementOrdered By: Adi Quezada on 09-16-2024 Potassium [Moles/Vol] 3.4 mmol/L Low 3.5-5.1 [facility] ,Serum,hCG Quali.on 09-16-2024 HCG, SERUM QUAL Negative Normal [facility] Comment on above: Performed By: #### L 190.7730 #### [facility] [place], [address] Protein Test strip Ql (U)Ord ered By: Adi Quezada on 09-16-2024 Protein Ql (U) 100 mg/dl High Negative [facility] RBC Auto (Bld) [#/Vol]Ordere d By: Adi Quezada on 09-16-2024 RBC (Bld) [#/Vol] 4.66 10*6/uL 4.2-5.4 [facility] Serum anion gap measurementO rdered By: Adi Quezada on 09-16-2024 Anion gap [Moles/Vol] 11 mmol/L 5-15 [facility] Serum beta-hCG test, qualita tiveOrdered By: Adi Quezada on 09-16-2024 Beta HCG ( test) Ql Negative [facility] Serum or plasma calcium yash urement (mass/volume)Ordered By: Adi Quezada on 09-16-2024 Calcium [Mass/Vol] 9.6 mg/dL 8.5-10.1 [facility] Serum or plasma creatinine m easurement (mass/volume)Ordered By: Adi Quezada on 09-16-2024 Creatinine [Mass/Vol] 0.72 mg/dL 0.55-1.02 [facility] Comment on above: The validity of the calculated GFR & GFRAA in patients over 70 years has not been determined. Clinical correlation is essential. Serum or plasma urea nitroge n measurement (mass/volume)Ordered By: Adi Quezada on 09-16-2024 Urea nitrogen [Mass/Vol] 10 mg/dL 7-18 [facility] Sodium levelOrdered By: Adi Quezada on 09-16-2024 Sodium [Moles/Vol] 141 mmol/L 136-145 [facility] Squamous epithelial cells de tection in urine sediment by light microscopyOrdered By: Adi Quezada on 09-16-2024 Epithelial cells.squamous LM Ql (Urine sed) 0-5 SEEN /hpf 5-10 [facility] Urinalysis, Completeon 09-16 BACTERIA 2+ /hpf Normal None Seen [facility] Comment on above: Order Comment: COLOR OF URINE MAY AFFECT DIPSTICK RESULTS.CLEAN CATCH Performed By: #### L 400.7600, L400.0001 #### [facility] [address] [place], [address] EPI,SQUAMOUS 0-5 SEEN Normal 5-10 [facility] Comment on above: Order Comment: COLOR OF URINE MAY AFFECT DIPSTICK RESULTS.CLEAN CATCH Performed By: #### L 400.7600, L400.0001 #### [facility] [address] [place], [address] RBC > 100 SEEN Normal 0-5 [facility] Comment on above: Order Comment: COLOR OF URINE MAY AFFECT DIPSTICK RESULTS.CLEAN CATCH Performed By: #### L 400.7600, L400.0001 #### [facility] [address] [place], [address] WBC 0-5 SEEN Normal 0-5 [facility] Comment on above: Order Comment: COLOR OF URINE MAY AFFECT DIPSTICK RESULTS.CLEAN CATCH Performed By: #### L 400.7600, L400.0001 #### [facility] [address] [place], [address] Mucus Ql (Urine sed) 0 SEEN Normal [facility] Comment on above: Order Comment: COLOR OF URINE MAY AFFECT DIPSTICK RESULTS.CLEAN CATCH Performed By: #### L 400.7600, L400.0001 #### [facility] [address] [place], [address] Urine clarityOrdered By: Mechelle Quezada on 09-16-2024 Clarity (U) Cloudy Clear [facility] Urine color determinationOrd ered By: Adi Quezada on 09-16-2024 Color (U) Pamela Yellow [facility] Urine glucose detectionOrder ed By: Adi Quezada on 09-16-2024 Glucose Ql (U) Normal mg/dl Normal [facility] Urine leukocyte esterase det ection by dipstickOrdered By: Adi Quezada on 09-16-2024 Leukocyte esterase Test strip Ql (U) 100 /ul High Negative [facility] Urine pHOrdered By: Adi london on 09-16-2024 pH (U) 5.0 [pH] 5.0 - 8.0 [facility] Urine sediment bacteria coun t by microscopy (number/high power field)Ordered By: Adi Quezada on 09-16-2024 Bacteria LM.HPF (Urine sed) [#/Area] 2 /[HPF] None Seen [facility] Urine specific gravity measu rementOrdered By: Adi Quezada on 09-16-2024 Specific gravity (U) [Rel density] 1.025 1.002-1.030 [facility] Urine urobilinogen measureme ntOrdered By: Adi Quezada on 09-16-2024 Urobilinogen Ql (U) 1 mg/dl High Normal [facility] White blood cell (WBC) count Ordered By: Adi Quezada on 09-16-2024 WBC (Bld) [#/Vol] 13.1 10*3/uL High 4.4-11.0 [facility] White blood cell countOrdere d By: Adi Quezada on 09-16-2024 White blood cell count 0-5 SEEN /hpf 0-5 [facility] ED MED ADMINISTRATION DETAIL on 09-14-2024 ED MED ADMINISTRATION DETAIL Operations Lead Medication Administration Record [address] [address] [id number] 09/14/2024 Patient: CECILIA SENIOR Sex: Female : 1990 Age: 34y MEASUREMENTS: Wt: 147.9 kg, Ht/Spencer: 69.0 in, BMI: 48.14 ALLERGIES: Toradol, Valium, aspirin, trazodone Medication Ordered Medication Administration Date/Time Normal [facility] ED NURSES CLINICAL NOTEon ED NURSES CLINICAL NOTE Nurse Narrative Nurse Clinical Narrative [address] [address] [id number] 09/14/2024 Patient: CECILIA SENIOR Sex: Female : 1990 Age: 34y Disposition: Left AMA Left Against Medical Advice Disposition Decision Time: 12:34 09/14/2024 Departure Time: 12:34 09/14/2024 TRIAGE Primary physician (Daniela). Triage time: 12:14 09/14/2024. Acuity: LEVEL 3. Chief Complaint: NAUSEA and VOMITING. This started yesterday. ( Pt started her period yesterday and started to shake, vomiting as well.). SEPSIS SCREEN: NEGATIVE. SIRS criteria negative. No possible sources of infection. -- 12:22 09/14/24 EUNICE Dean R.N. 12:19 09/14/24. BP: 129/74 MAP: 92. HR: 87. RR: 20. O2 saturation: 100% Temperature: 98.3 F. Pain level now 910. -- 12:20 09/14/24 EUNICE Dean R.N. Measurements: 12:18 09/14/24 Wt: 147.9 kg, Ht/Spencer: 69.0 in, BMI: 48.14 -- 12:18 09/14/24 EUNICE Dean R.N. Medications: Keppra oral -- 12:16 09/14/24 EUNICE Dean R.N. Allergies: 1 of 3 Nurse Narrative aspirin -- 12:15 09/14/24 EUNICE Dean R.N. Toradol -- 12:15 09/14/24 EUNICE Dean R.N. trazodone -- 12:15 09/14/24 EUNICE Dean R.N. Valium -- 12:15 09/14/24 EUNICE Dean R.N. Problems: Depression -- 12:16 09/14/24 EUNICE Dean R.N. PTSD -- 12:16 09/14/24 EUNICE Dean R.N. Endometriosis -- 12:16 09/14/24 EUNICE Dean R.N. ADDITIONAL SURGERIES: Gallbladder Surgery -- 12:16 09/14/24 EUNICE Dean R.N. History 12:14 09/14/24. PAST MEDICAL HX: Last normal menstrual period- 1 day. SOCIAL HX: Heavy tobacco smoker (cigarette)- less than 1 pack per day. No alcohol use or drug use. The patient has not traveled outside the [place] Infectious disease exposure: No infectious disease exposure. ABUSE ASSESSMENT: The patient answered yes to the question(s) Do you feel safe in your home? and no to the question(s) Are you afraid to go home?. SELF HARM ASSESSMENT: Self harm assessment was performed. The patient answered no to the question(s) Have you recently felt down, depressed, or hopeless? and Do you have thoughts of harming or killing yourself?. FALL RISK ASSESSMENT: Fall risk assessment completed. No risk factors identified. -- 12:22 09/14/24 EUNICE Dean R.N. Interventions 12:14 09/14/24. Advanced care plan discussed with patient. Patient does not have advanced directive. -- 12:22 09/14/24 EUNICE Dean R.N. 2 of 3 Nurse Narrative DISPOSITION / DISCHARGE Departure time: 12:34 09/14/2024. The patient left the Emergency Department against medical advice and without completion of treatment. The patient appears to be alert, oriented x4 and using abusive language. Gown found on bed. Notified the ED physician of patient departure. The patient left the Emergency Department ambulatory and via private vehicle. ( pt opened curtain of room and said I can't stand this stupid shit and walked out the door. RN attempted to have patient wait while provider finished putting orders in. Pt did not acknowledge RN and continued out the door.). -- 12:39 09/14/24 EUNICE Mulligan R.N. 12:34 09/14/24. Condition at departure: improved. -- 12:40 09/14/24 EUNICE Mulligan R.N. (Electronically signed by Chung Mulligan R.N. 09/14/24 12:41:23 EST) Generated by [facility] 3 of 3 Normal [facility] ED ORDER SHEET (CPOE ONLY)on 09-14-2024 ED ORDER SHEET (CPOE ONLY) Order Sheet Order Sheet [address] [place] [address] [id number] 09/14/2024 Patient: CECILIA SENIOR Sex: Female : 1990 Age: 34y MEASUREMENTS: Wt: 147.9 kg, Ht/Spencer: 69.0 in, BMI: 48.14 ALLERGIES: Toradol, Valium, aspirin, trazodone MEDICATION/IV/DRIP/F LUID ORDERS Order Description Priority Entered Acknowledged Completed IV NS 0.9 %1000 mL at 999 12:35 09/14/2024 mL/hr (NOW x1) Cole Carrillo M.D. Zofran IVP4 mg (NOW x1) 12:35 09/14/2024 Cole Carrillo M.D. LAB ORDERS Order Description Priority Entered Acknowledged Collected Completed CBC w Diff Stat Stat 12:35 09/14/2024 Cole Carrillo M.D. CMP Stat Stat 12:35 09/14/2024 Cole Carrillo M.D. Urinalysis Stat Stat 12:35 09/14/2024 1 of 2 Order Sheet Cole Carrillo M.D. Lactate, Serum Stat Stat 12:35 09/14/2024 Cole Carrillo M.D. DIAGNOSTIC STUDY ORDERS Order Description Priority Entered Acknowledged Completed STAFF ORDERS Order Description Priority Entered Acknowledged Collected Completed Vital Signs every 30 12:35 09/14/2024 minutes Cole Carrillo M.D. [Electronically signed by Cole Carrillo M.D. (09/14/2024 14:08 EST)] 2 of 2 Normal [facility] ED PHYSICIAN CLINICAL REPORT on 09-14-2024 ED PHYSICIAN CLINICAL REPORT Narrative Physician Clinical Narrative [address] [place] [address] [id number] 09/14/2024 Patient: CECILIA SENIOR Sex: Female : 1990 Age: 34y Disposition: Left AMA Left Against Medical Advice Disposition Decision Time: 12:34 09/14/2024 Departure Time: 12:34 09/14/2024 Measurements Wt: 147.9 kg, Ht/Spencer: 69.0 in, BMI: 48.14 Initial Vital Sign Measured Time BP MAP HR RR O2Sat ETCO2 Temp Pain GCS RTS 12:19 09/14/2024 129/74 92 87 20 100% 98.3 F 9 Time Seen: 12:22 09/14/2024. Arrived- By private vehicle. Historian- patient. HISTORY OF PRESENT ILLNESS Chief Complaint: VOMITING. This started yesterday. The patient has had nausea, vomiting and abdominal pain. No diarrhea, black stools or bloody stools. The illness is described as moderate. (patient states she has a endometriosis and with that very irregular periods. She began her period yesterday and when she has her. She states that she develops severe abdominal pain. Has been complaining of abdominal pain since yesterday and has had vomiting yesterday and today we as well. She has not had any fever or chills no urinary symptoms.). Similar symptoms previously. Patient has had similar symptoms several times. 1 of 3 Narrative REVIEW OF SYSTEMS CONSTITUTIONAL: No fever or muscle aches. NEUROLOGICAL: No headache or dizziness. All other systems reviewed and are negative. PAST HISTORY See nurses notes. Depression Endometriosis PTSD Surgeries: Gallbladder Surgery Medications: Keppra oral Allergies: aspirin Toradol trazodone Valium ADDITIONAL NOTES The nursing notes have been reviewed. PHYSICAL EXAM Vital Signs: Have been reviewed. Appearance: Alert. Oriented X3. No acute distress. Anxious. Eyes: Pupils equal, round and reactive to light. Eyes normal inspection. ENT: Ears normal. Nose normal. (Has diffuse poor dentition and diffuse significant gingivitis.). Neck: Normal inspection. Neck supple. CVS: Normal heart rate and rhythm. Heart sounds normal. Respiratory: No respiratory distress. Painless inspiration. 2 of 3 Narrative Abdomen: Soft. Mild tenderness diffusely. No organomegaly. No mass. Obese. No rebound tenderness or guarding. Back: Normal inspection. Skin: Skin warm and dry. Normal skin color. No rash. Normal skin turgor. Extremities: No lower extremity edema. Neuro: Oriented X 3. PROGRESS AND PROCEDURES MEDICAL DECISION MAKING: Pertinent clinical findings include the acute presentation and the character of the pain. The findings also include the comorbidities. The exam revealed no vital signs that were significantly abnormal, unequal pulses, rebound tenderness, mass, McBurney's point tenderness or positive Knight's sign. Serious conditions are unlikely to be a cause for the patient's findings. (after leaving the room for history and physical I came to the desk to put in orders. As I was putting in orders I was notified by nursing personnel that patient and her significant other basically just got up and walked out of the ER. And they did not say anything to anyone it was noticed that they went out into the car and drove away. Had basically told her that we were going to put an IV ED gave her some IV fluids give her some medication for pain and nausea do some further tests and she said nothing and gave no indication that there was any problem at that point. So basically patient eloped we will before any further significant evaluation was done.). DISCHARGE INSTRUCTIONS Eloped: 12:41 09/14/2024. Patient left the Emergency Department without completion of treatment. ED staff was not notified prior to leaving the department. (Electronically signed by Cole Carrillo M.D. 09/14/24 14:08:03 EST) Generated by [facility] 3 of 3 Normal [facility] ED SUPER BILLon 09-14-2024 ED [facility]ILL [facility] [address] [address] [id number] 09/14/2024 Patient: CECILIA SENIOR Sex: Female : 1990 Age: 34y Item Professional Category Description Facility Code Code Quantity Fee Total Nurse/E/M EMERGENCY 393503 1 $0.00 $0.00 DEPARTMENT VISIT LIMITED/MINOR PROB (05823) Grand Total $0.00 Providers Cole Carrillo M.D. Chief Complaint VOMITING. 1 of 1 Normal [facility] ED VISIT SUMMARYon ED VISIT SUMMARY Visit Overview Visit Overview [address] [address] [id number] 09/14/2024 Patient: CECILIA SENIOR Sex: Female : 1990 Age: 34y 09/14/2024 02:08 PM EST ED Arrival:12:12 09/14/2024 EST Status: Recent Travel:no Language:eng Adv Directive:No Isolation Status: Ethnicity:N Fall Risk:no risk Infectious Disease Exposure:no Measurements:5'9 / 175.3 Self-Harm Status:risk Sepsis Screen:negative cm 326.0 lb / 147.9 kg Chief Complaint:NAUSEA, VOMITING, (Daniela), and (Pt started her period yesterday and started to shake, vomiting as well. ) ALLERGIES aspirin Toradol trazodone Valium HOME MEDICATIONS Keppra oral 1 of 3 Visit Overview PAST MEDICAL HISTORY / PROBLEMS Depression Endometriosis Last normal menstrual period- 1 day PTSD See nurses notes PAST SURGICAL HISTORY Gallbladder Surgery SOCIAL HISTORY Smoking status: Yes Alcohol use: No Drug use: No ED COURSE MEDICATIONS GIVEN IN EMERGENCY DEPARTMENT IV SITE INFORMATION INTAKE OUTPUT REASSESMENT (most recent) VITAL SIGNS First Vitals Last Vitals Temp 12:09/14/24 98.3 F Temp 12:09/14/24 98.3 F BP 12:09/14/24 129/74 BP 12:09/14/24 129/74 HR 12:09/14/24 87 HR 12:09/14/24 87 RR 12:09/14/24 20 RR 12:09/14/24 20 O2 Sat 12:09/14/24 100% O2 Sat 12:09/14/24 100% Pain 12:09/14/24 9 Pain 12:09/14/24 9 ETCO2 12:09/14/24 ETCO2 12:09/14/24 2 of 3 Visit Overview First Vitals Last Vitals GCS 12:19 09/14/24 GCS 12:09/14/24 RTS 12:09/14/24 RTS 12:09/14/24 PROCEDURES NURSING INTERVENTIONS LABS / STUDIES LABS / STUDIES ORDERED CBC w Diff CMP Lactate, Serum Urinalysis CLINICAL IMPRESSION 3 of 3 Normal [facility] ED VITALS FLOW SHEETon 09-14 ED VITALS FLOW SHEET Vitals Vital Sign Flow Sheet [address] [address] [id number] 09/14/2024 Patient: CECILIA SENIOR Sex: Female : 1990 Age: 34y Measurements Wt: 147.9 kg, Ht/Spencer: 69.0 in, BMI: 48.14 Measured Time BP MAP HR RR O2Sat ETCO2 Temp Pain GCS RTS 12:09/14/2024 129/74 92 87 20 100% 98.3 F 9 1 of 1 Normal [facility] URINE CULTURE [CCL]on 2023 Bacteria identified Cx Nom (U) URCUL See Results Below See Below CULTURE, URINE MIXED MICROBIOTA 10,000 -<50,000 CFU/ml Mixed microbiota No further workup. Mixed microbiota can be due to???urine???contami nation with s SOURCE: Urine (Nonspecific) [facility] [address] [place] [address] Donald Chase III, M.D. [id number] SEND TO NO Normal [facility] Comment on above: Performed By: #### 2 66513 ####[facility],[address] [place] [address] 11376 C-REACTIVE PROTEINon 024 CRP [Mass/Vol] mg/L Normal 0.00 - 0.90 [facility] Comment on above: Performed By: #### 2 52864 ####[facility],[address] [place] [address] 66982 CBC + DIFFon 07-18-2024 Baso # 0.04 x10EE3/UL Normal 0.00 - 0.10 [facility] Comment on above: Performed By: #### 2 40109 ####[facility],[address] [place] [address] 15333 Basophils/100 WBC (Bld) 0.4 % Normal 0.0 - 2.0 [facility] Comment on above: Performed By: #### 2 83927 ####[facility],[address] [place] [address] 31396 CBC + DIFF Normal [facility] Comment on above: Result Comment: CBC- COMPLETE BLOOD COUNT Performed By: #### 2 50877 ####[facility],[address] [place] [address]17 EO # 0.13 x10EE3/UL Normal 0.00 - 0.50 [facility] Comment on above: Performed By: #### 2 76141 ####[facility],[address] [place] [address] 74082 Eosinophils/100 WBC (Bld) 1.3 % Normal 0.0 - 7.0 [facility] Comment on above: Performed By: #### 2 37255 ####[address] [address] Erythrocyte distribution width (RBC) [Ratio] 15.3 % Normal 12.0 - 15.6 [facility] Comment on above: Performed By: #### 2 73826 ####[facility],[address] [place] [address] Hematocrit (Bld) [Volume fraction] 41.1 % Normal 34.0 - 46.0 [facility] Comment on above: Performed By: #### 2 19376 ####[facility],[address] [place] [address] Hemoglobin (Bld) [Mass/Vol] 13.5 g/dL Normal 12.0 - 16.0 [facility] Comment on above: Performed By: #### 2 48740 ####[facility],[address] [place] [address] Lymph # 2.76 x10EE3/UL Normal 0.80 - 2.80 [facility] Comment on above: Performed By: #### 2 39469 ####[facility],[address] [place], [place] [id number] Lymphocytes/100 WBC (Bld) 28.3 % Normal 20.0 - 45.0 [facility] Comment on above: Performed By: #### 2 82060 ####[facility],[address] [place] [address] MANUAL DIFF N/A Normal [facility] Comment on above: Performed By: #### 2 32102 ####[facility],[address] [place], [place] [phone] MCH (RBC) [Entitic mass] 29 pg Normal 27 - 33 [facility] Comment on above: Performed By: #### 2 64302 ####[facility],[address] [place], [place] [phone] MCHC 33 X10 3 Normal 32 - 36 [facility] Comment on above: Performed By: #### 2 38890 ####[facility],[address] [place], [place] [phone] MCV (RBC) [Entitic vol] 88 fL Normal 80 - 99 [facility] Comment on above: Performed By: #### 2 10904 ####[facility],[address] [place] [address] [place] # 0.76 x10EE3/UL Normal 0.20 - 1.00 [facility] Comment on above: Performed By: #### 2 65294 ####[facility],[address] [place] [address] MONOS % 7.9 % Normal 0.0 - 10.0 [facility] Comment on above: Performed By: #### 2 93507 ####[facility],[address] [place] [address] Morphology Usman (Bld) [Interp] N/A Normal [facility] Comment on above: Performed By: #### 2 89099 ####[facility],[address] [place] [address] Neut # 6.05 x10EE3/UL Normal 1.50 - 7.10 [facility] Comment on above: Performed By: #### 2 76015 ####[place] [address] Neutrophils/100 WBC (Bld) 62.1 % Normal 46.0 - 76.0 [facility] Comment on above: Performed By: #### 2 69766 ####[facility],[address] [place] [address] PLATELET 350 x10EE3/UL Normal 150 - 450 [facility] Comment on above: Performed By: #### 2 71295 ####[place] [address] Platelet mean volume (Bld) [Entitic vol] 7.8 fL Normal 6.6 - 10.5 [facility] Comment on above: Result Comment: AUTO MATED DIFFERENTIAL Performed By: #### 2 86457 ####[place] [address],[place] [address] RBC 4.65 x 10EE6/UL Normal 4.10 - 5.30 [facility] Comment on above: Performed By: #### 2 84391 ####[facility],[address] [place] [address] 41864 WBC 9.7 x 10EE3/UL Normal 4.5 - 10.8 [facility] Comment on above: Performed By: #### 2 98154 ####[facility],[address] [place] [address] 27955 CMP with eGFRon 07-18-2024 AGE 34 years Normal [facility] Comment on above: Performed By: #### 2 42833 ####[facility],[address] [place] [address] 75988 Albumin [Mass/Vol] 3.6 g/dL Normal 3.4 - 5.0 [facility] Comment on above: Performed By: #### 2 36558 ####[facility],[address] [place] [address] 03305 Albumin/Globulin [Mass ratio] 0.9 {ratio} Normal 0.9 - 1.6 [facility] Comment on above: Performed By: #### 2 36901 ####[facility],[address] [place] [address] 88742 ALK PHOS 74 U/L Normal 46 - 116 [facility] Comment on above: Performed By: #### 2 80411 ####[facility],[address] [place] [address] 87095 ALT [Catalytic activity/Vol] 26 U/L Normal 16 - 63 [facility] Comment on above: Performed By: #### 2 68059 ####[facility],[address] [place] [address] 58171 Anion gap [Moles/Vol] 18 mmol/L Normal 10 - 20 [facility] Comment on above: Performed By: #### 2 77077 ####[facility],[address] [place] [address] 29256 AST [Catalytic activity/Vol] 21 U/L Normal 13 - 39 [facility] Comment on above: Performed By: #### 2 52236 ####[facility],[address] [place] [address] 06315 B/C RATIO 9 ratio Normal 0 - 30 [facility] Comment on above: Performed By: #### 2 87047 ####[facility],[address] [place] [address] 15078 Bilirubin [Mass/Vol] 0.8 mg/dL Normal 0.2 - 1.0 [facility] Comment on above: Performed By: #### 2 49057 ####[facility],[address] [place] [address]12 Calcium [Mass/Vol] 9.6 mg/dL Normal 8.5 - 10.1 [facility] Comment on above: Performed By: #### 2 88984 ####[facility],[address] [place] [address] 55717 Chloride [Moles/Vol] 100 mmol/L Normal 98 - 107 [facility] Comment on above: Performed By: #### 2 13874 ####[facility],[address] [place] [address] 44881 CMP with eGFR Normal [facility] Comment on above: Result Comment: COMP REHENSIVE METABOLIC PANEL Performed By: #### 2 17760 ####[facility],[address] [place] [address] 19293 CO2 [Moles/Vol] 26.0 mmol/L Normal 21.0 - 32.0 [facility] Comment on above: Performed By: #### 2 45429 ####[facility],[address] [place] [address] 14467 Creatinine [Mass/Vol] 0.70 mg/dL Normal 0.55 - 1.02 [facility] Comment on above: Performed By: #### 2 30469 ####[facility],[address] [place] [address]7544 GFR/1.73 sq M.predicted among non-blacks MDRD (S/P/Bld) [Vol rate/Area] mL/min/{1.73_m2} Normal 60 - 999 [facility] Comment on above: Performed By: #### 2 54284 ####[facility],[address] [place] [address] 77719 Result Comment: ACCO RDING TO THE NATIONAL KIDNEY DISEASE EDUCATION PROGRAM(NKDE), A NORMAL eGFR IS A VALUE GREATER THAN OR EQUAL TO 60 ML/MIN/1.73 SQ METERS. CHRONIC KIDNEY DISEASE: <60mL/MIN/1.73 SQ METERS KIDNEY FAILURE: <15mL/MIN/1.73 SQ METERS THIS TEST SHOULD ONLY BE USED FOR PATIENTS 18 YEARS OF AGE AND OLDER. Globulin (S) [Mass/Vol] 4.1 g/dL High 1.5 - 3.8 [facility] Comment on above: Performed By: #### 2 98974 ####[address] [address] Glucose [Mass/Vol] 118 mg/dL High 74 - 106 [facility] Comment on above: Performed By: #### 2 37729 ####[address] [address] Potassium [Moles/Vol] 2.8 mmol/L Critically low 3.5 - 5.1 [facility] Comment on above: Result Comment: { CA LLED TO RAIZA/ER @ 0310 { READ BACK BY RAIZA TO TRR Performed By: #### 2 05618 ####[address] [address] Protein [Mass/Vol] 7.7 g/dL Normal 6.4 - 8.2 [facility] Comment on above: Performed By: #### 2 21746 ####[address] [address] Sodium [Moles/Vol] 141 mmol/L Normal 136 - 145 [facility] Comment on above: Performed By: #### 2 94843 ####[facility],[address] [place] [address] 28776 Urea nitrogen [Mass/Vol] 6 mg/dL Low 7 - 18 [facility] Comment on above: Performed By: #### 2 40983 ####[facility],[address] [place] [address] ABDOMEN/PELVIS [facility] 2023 CT ABDOMEN/PELVIS [place] [address] Patient: CECILIA SENIOR Phone#: : 1990 Age: 34 Gender: F Pt. Type: ER Account: [id number] Location: [facility] Ordering: MARY NICOLE Exam Date: 07/18/2024/2:57 Family Phys: PATRICK MCDERMOTT Charge Code: 471429 Physician: Long Order #: [id number] Dose#: 51.0 PROCEDURE: CT ABDOMEN/PELVIS WITH CONTRAST COMPARISON: None. INDICATIONS: Abdominal pain. TECHNIQUE: After obtaining the patient's consent, CT images were created with non-ionic intravenous contrast material. All CT scans at this facility use dose modulation, iterative reconstruction, and/or weight based dosing when appropriate to reduce radiation dose to as low as reasonably achievable. IV CONTRAST: Omnipaque 350,80ml TOTAL DOSE: 51.0 CTDIvol(mGy) FINDINGS: LIVER: Normal. No enlargement, atrophy, abnormal density, or significant focal lesion. BILIARY: Gallbladder is absent. PANCREAS: Normal. No lesion, fluid collection, ductal dilatation, or atrophy. SPLEEN: Normal. No enlargement or focal lesion. KIDNEYS: Kidneys enhance and excrete contrast symmetrically. No hydronephrosis. There is a cyst in the right kidney measuring 1.0 cm. ADRENALS: Normal. No mass or enlargement. AORTA/VASCULAR: No aortic aneurysm. RETROPERITONEUM: Normal. No mass or adenopathy. BOWEL/MESENTERY: No bowel obstruction or dilatation. No significant stool burden. The appendix is unremarkable in size and contains air. ABDOMINAL WALL: Normal. No mass or hernia. URINARY BLADDER: Partially filled PELVIC NODES: Normal. No adenopathy. PELVIC ORGANS: Uterus is present. No adnexal mass. BONES: Normal. No bony lesion or fracture. LUNG BASES: Normal. No visible pulmonary or pleural disease. OTHER: Negative. Continued Report - Page 2 of 2 Patient: CECILIA SENIOR Phone#: : 1990 Age: 34 Gender: F Pt. Type: ER Account: [id number] Location: 052 Ordering: MARY NICOLE Exam Date: 07/18/2024/2:57 Family Phys: PATRICK MCDERMOTT Charge Code: [id number] Physician: Long Order #: [id number] Dose#: 51.0 CONCLUSION: 1. No acute intra-abdominal or pelvic abnormality Dictated by: Stephanie Hackett MD on 07/18/2024 at 9:49 Approved by: Stephanie Hackett MD on 07/18/2024 at 9:59 Normal [facility] ED MED ADMINISTRATION DETAIL on 07-18-2024 ED MED ADMINISTRATION DETAIL Operations Lead [place] [address] [id number] 07/18/2024 Patient: CECILIA SENIOR Sex: Female : 1990 Age: 34y MEASUREMENTS: Wt: 145.6 kg, Ht/Spencer: 69.0 in, BMI: 47.40 ALLERGIES: Toradol, Valium, aspirin, trazodone Medication Ordered Medication Administration Date/Time IV NS 0.9 % 1000 02:07/18 IV NS 0.9 % 1000 mL started in bag#1 1000 mL at Started mL at 999 mL/hr 999 mL/hr via Site# 1. Allergies verified and confirmed 5 rights. IV 02:07/18/2024 (NOW x1) patency established. IV site checked: no pain, redness, or swelling. Raiza Galvan R.N. IV flushed thoroughly pre-medication administration. Information Stopped reviewed with patient including reason for taking this medication. 03:40 07/18/2024 Verbalizes understanding. - 02: Raiza Glavan R.N. Raiza Galvan, R.N. Scanned 03:40 07/18 Medication Discontinued: bag #1 completed. Total amount infused: 1000 mL. IV patency established. IV site checked: no pain, redness, or swelling. IV flushed thoroughly post-medication administration. - 04:25 Raiza Galvan R.N. MORPHine IVP 4 02:07/18 MORPHine IVP 4 mg given via Site# 1. Allergies Given mg (NOW x1, HIGH verified and confirmed 5 rights. IV patency established. IV site 02:29 07/18/2024 ALERT checked: no pain, redness, or swelling. IV flushed thoroughly Raiza Galvan, R.N. MEDICATION) pre-medication administration. Information reviewed with patient Scanned including reason for taking this medication. Verbalizes understanding. - 02: Raiza Galvan R.N. 1 of 3 Operations Lead Medication Ordered Medication Administration Date/Time Zofran IVP 4 mg 02:07/18 Zofran IVP 4 mg given via Site# 1. Allergies verified Given (NOW x1) and confirmed 5 rights. IV patency established. IV site checked: no 02:28 07/18/2024 pain, redness, or swelling. IV flushed thoroughly pre-medication Raiza Galvan, R.N. administration. Information reviewed with patient including reason Scanned for taking this medication. Verbalizes understanding. - 02: Raiza Galvan R.N. Potassium Chloride 03:24 07/18 Potassium Chloride PO 40 mEq given. Allergies Given PO 40 mEq (NOW verified and confirmed 5 rights. Information reviewed with patient 03:24 07/18/2024 x1) including reason for taking this medication. Verbalizes Raiza Galvan R.N. understanding. - 03:24 Raiza Galvan R.N. Scanned HYDROmorphone 03:24 07/18 HYDROmorphone (Dilaudid) IVP 1 mg given via Site# Given (Dilaudid) IVP 1 mg 1. Allergies verified and confirmed 5 rights. IV patency established. 03:24 07/18/2024 (NOW x1, HIGH IV site checked: no pain, redness, or swelling. IV flushed thoroughly Raiza Galvan, R.N. ALERT pre-medication administration. Information reviewed with patient Scanned MEDICATION) including reason for taking this medication. Verbalizes understanding. - 03:25 Raiza Mandy, R.N. Reglan IVP 10 mg 03:22 07/18 Reglan IVP 10 mg given via Site# 1. Allergies verified Given (NOW x1) and confirmed 5 rights. IV patency established. IV site checked: no 03:22 07/18/2024 pain, redness, or swelling. IV flushed thoroughly pre-medication Raiza Mandy, R.N. administration. Information reviewed with patient including reason Scanned for taking this medication. Verbalizes understanding. - 03:23 Raiza Mandy, R.N. cefTRIAXone 04:12 07/18 cefTRIAXone (Rocephin) IVPB 1gm/50ml NS 1 g Started (Rocephin) IVPB started at 100 mL/hr diluted in sodium chloride IVPB 0.9 % 04:12 07/18/2024 1gm/50ml NS 1 g Minibag+ 50 mL via Site# 1. Allergies verified and confirmed 5 Raiza Mandy, R.N. diluted in sodium rights. IV patency established. IV site checked: no pain, redness, or Stopped chloride IVPB 0.9 % swelling. IV flushed thoroughly pre-medication administration. 04:25 07/18/2024 Minibag+ 50 mL at Information reviewed with patient including reason for taking this Raiza Mandy, R.N. 100 mL/hr (NOW x1) medication. Verbalizes understanding. - 04:12 Raiza Mandy, R.N. Scanned 04:25 07/18 Medication Discontinued: IV completed. Total amount infused: 50 mL. IV patency established. IV site checked: no pain, redness, or swelling. IV flushed thoroughly post-medication administration. - 04:25 Raiza Mandy, R.N. 2 of 3 Operations Lead 3 of 3 Normal [facility] ED NURSES CLINICAL NOTEon ED NURSES CLINICAL NOTE Nurse Narrative Nurse Clinical Narrative [address] [place] [address] [id number] 07/18/2024 Patient: CECILIA SENIOR Sex: Female : 1990 Age: 34y Disposition: Discharge to Home Disposition Decision Time: 03:54 07/18/2024 Departure Time: 04:25 07/18/2024 TRIAGE 01:44 07/18/24. RR: 18. Temperature: 98.1 F. Pain level now 810. -- 01:49 07/18/24 EUNICE Galvan RBonnyN. Arrived by private vehicle. Historian: patient and family. Accompanied by family. Primary physician (daniela). Triage time: 01:46 07/18/2024. Acuity: LEVEL 3. Chief Complaint: ABDOMINAL PAIN, NAUSEA and VOMITING. Onset. (5 days ago). The patient has had diarrhea. SEPSIS SCREEN: NEGATIVE. SIRS criteria negative. No possible sources of infection. -- 01:53 07/18/24 Trevor CasasN. 01:48 07/18/24. BP: 167/93 MAP: 115 mmHg. HR: 91 bpm. -- 01:49 07/18/24 EUNICE Galvan R.N. 01:49 07/18/24. O2 saturation: 95% -- 01:49 07/18/24 EUNICE Galvan R.N. Measurements: 01:52 07/18/24 Wt: 145.6 kg, Ht/Spencer: 69.0 in, BMI: 47.40 -- 01:52 07/18/24 EUNICE Galvan R.N. Medications: no known home medications -- 01:49 07/18/24 EUNICE Galvan RBonnyNBonny 1 of 4 Nurse Narrative Allergies: aspirin -- 01:50 07/18/24 EUNICE Galvan RBonnyN. Toradol -- 01:50 07/18/24 EUNICE Galvan R.N. trazodone -- 01:50 07/18/24 EUNICE Galvan R.N. Valium -- 01:50 07/18/24 EUNICE Galvan R.N. Problems: Depression -- 01:50 07/18/24 EUNICE Galvan R.N. PTSD -- 01:50 07/18/24 EUNICE Galvan R.N. Endometriosis -- 01:51 07/18/24 EUNICE Galvan R.N. ADDITIONAL SURGERIES: Gallbladder Surgery -- 01:51 07/18/24 EUNICE Galvan R.N. History 01:46 07/18/24. SOCIAL HX: Light tobacco smoker- less than 1/2 a pack per day. Drug use: marijuana. No alcohol use. The patient has not traveled outside the [place] Infectious disease exposure: No infectious disease exposure. ABUSE ASSESSMENT: The patient answered yes to the question(s) Do you feel safe in your home? and no to the question(s) Are you afraid to go home?. SELF HARM ASSESSMENT: Self harm assessment was performed. The patient answered no to the question(s) Have you recently felt down, depressed, or hopeless? and Do you have thoughts of harming or killing yourself?. NUTRITIONAL RISK ASSESSMENT: The nutritional risk assessment revealed no deficiencies. FALL RISK ASSESSMENT: Fall risk assessment completed. No risk factors identified. -- 01:53 07/18/24 EUNICE Galvan R.N. 01:53 07/18/24. 2 of 4 Nurse Narrative PAST MEDICAL HX: Last normal menstrual period- 5 days ago. Denies current . -- 01:53 07/18/24 EUNICE Galvan R.N. PHYSICAL ASSESSMENT 02:51 07/18/24. Ambulatory to room. ( Abd pain, nausea, vomiting, diarrhea for several days. Was at [facility] yesterday and today, went [facility] yesterday due to wait time.). GENERAL / NEURO / PSYCH: Alert. Oriented X 4. Appears in no acute distress. RESPIRATORY: Respirations not labored. Breath sounds within normal limits. CVS: Normal sinus rhythm noted. Capillary refill less than 2 seconds. -- 02:51 07/18/24 EUNICE Galvan R.N. NURSING PROGRESS NOTES 02:25 07/18/24. IV NS 0.9 % 1000 mL started in bag#1 1000 mL at 999 mL/hr via Site# 1. Allergies verified and confirmed 5 rights. IV patency established. IV site checked: no pain, redness, or swelling. IV flushed thoroughly pre-medication administration. Information reviewed with patient including reason for taking this medication. Verbalizes understanding. -- 02:26 07/18/24 EUNICE Galvan R.N. 02:28 07/18/24. Zofran IVP 4 mg given via Site# 1. Allergies verified and confirmed 5 rights. IV patency established. IV site checked: no pain, redness, or swelling. IV flushed thoroughly pre-medication administration. Information reviewed with patient including reason for taking this medication. Verbalizes understanding. -- 02:28 07/18/24 EUNICE Galvan R.N. 02:29 07/18/24. MORPHine IVP 4 mg given via Site# 1. Allergies verified and confirmed 5 rights. IV patency established. IV site checked: no pain, redness, or swelling. IV flushed thoroughly pre-medication administration. Information reviewed with patient including reason for taking this medication. Verbalizes understanding. -- 02:31 07/18/24 EUNICE Galvan R.N. 02:52 07/18/24. Patient transported to [place]. Two patient identifiers checked. Call light placed in reach. Side rails up x 1. Bed placed in lowest position. Brakes of bed on. -- 02:52 07/18/24 EUNICE Galvan RBonnyNBonny 03:11 07/18/24. K: 2.8. ED physician notifed of critical value. -- 03:11 07/18/24 EUNICE Galvan R.N. 03:22 07/18/24. Reglan IVP 10 mg given via Site# 1. Allergies verified and confirmed 5 rights. IV patency established. IV site checked: no pain, redness, or swelling. IV flushed thoroughly pre-medication administration. Information rev (more content not included)... Normal [facility] ED ORDER SHEET (CPOE ONLY)on 07-18-2024 ED ORDER SHEET (CPOE ONLY) Order Sheet Order Sheet [address] [place] [address] [id number] 07/18/2024 Patient: CECILIA SENIOR Sex: Female : 1990 Age: 34y MEASUREMENTS: Wt: 145.6 kg, Ht/Spencer: 69.0 in, BMI: 47.40 ALLERGIES: Toradol, Valium, aspirin, trazodone MEDICATION/IV/DRIP/F LUID ORDERS Order Description Priority Entered Acknowledged Completed IV NS 0.9 %1000 mL at 999 01:59 07/18/2024 02:21 02:26 mL/hr (NOW x1) Mary Nicole D.O. 07/18/2024 07/18/2024 Debi Victoria R.N. MORPHine IVP4 mg (NOW x1, 02:02 07/18/2024 02:21 02:31 HIGH ALERT MEDICATION) Mary Nicole D.O. 07/18/2024 07/18/2024 Debi Victoria R.N. Zofran IVP4 mg (NOW x1) 02:02 07/18/2024 02:21 02:28 Mary Nicole D.O. 07/18/2024 07/18/2024 Debi Victoria R.N. Potassium Chloride PO40 mEq 03:14 07/18/2024 03:15 03:24 (NOW x1) Mary Nicole D.O. 07/18/2024 07/18/2024 Debi Victoria R.N. HYDROmorphone (Dilaudid) 03:17 07/18/2024 03:25 IVP1 mg (NOW x1, HIGH ALERT Mary Nicole D.O. 07/18/2024 MEDICATION) Raiza Galvan R.N. 1 of 4 Order Sheet Reason for ordering with alerts: Clinical consideration given --03:17 07/18/2024 Mary Nicole D.O. Reglan IVP10 mg (NOW x1) 03:17 07/18/2024 03:23 Mary Nicole D.O. 07/18/2024 Raiza Galvan RBonnyNBonny Reason for ordering with alerts: Clinical consideration given --03:17 07/18/2024 Mary Nicole D.O. cefTRIAXone (Rocephin) IVPB 04:09 07/18/2024 04:12 1gm/50ml NS1 g diluted in Mary Nicole D.O. 07/18/2024 sodium chloride IVPB 0.9 % Raiza Galvan R.N. Minibag+ 50 mL at 100 mL/hr (NOW x1) LAB ORDERS Order Description Priority Entered Acknowledged Collected Completed CBC w Diff Stat Stat 01:59 07/18/2024 02:21 07/18/2024 02:31 07/18/2024 Fara Beyer, Debi Galvan, R.N. CMP Stat Stat 01:59 07/18/2024 02:21 07/18/2024 02:31 07/18/2024 Fara Beyer, Debi Galvan, R.N. Lactate, Serum Stat Stat 01:59 07/18/2024 02:21 07/18/2024 02:31 07/18/2024 Fara Beyer, Debi Galvan, R.N. Urinalysis Stat Stat 01:59 07/18/2024 02:21 07/18/2024 03:51 07/18/2024 Fara Beyer, Debi Galvan, R.N. Troponin-I Stat Stat 01:59 07/18/2024 02:21 07/18/2024 02:31 07/18/2024 Fara Beyer, Debi Galvan, R.N. EKG - ED Stat Stat 01:59 07/18/2024 02:21 07/18/2024 02:42 07/18/2024 Fara Beyer, Debi Galvan, R.N. 2 of 4 Order Sheet Lipase Stat Stat 02:00 07/18/2024 02:21 07/18/2024 02:31 07/18/2024 Fara Beyer, Debi Galvan, R.N. CRP Stat Stat 02:00 07/18/2024 02:21 07/18/2024 02:31 07/18/2024 Fara Beyer, Debi Galvan, R.N. HCG, Qual Serum Stat Stat 02:01 07/18/2024 02:21 07/18/2024 02:32 07/18/2024 Fara Beyer, Debi Macielp, RBonnyNBonny Urine Culture [CCL] Stat Stat 04:09 07/18/2024 04:10 07/18/2024 Fara Beyer R.N. DIAGNOSTIC STUDY ORDERS Order Description Priority Entered Acknowledged Completed CT ABD/PEL w Cont Stat Stat 02:00 07/18/2024 02:21 02:53 Mary Nicole D.O. 07/18/2024 07/18/2024 Debi Victoria, R.NBonny Reason for Study: Abdominal Pain STAFF ORDERS Order Description Priority Entered Acknowledged Collected Completed IV Saline Lock 01:59 07/18/2024 02:21 07/18/2024 02:31 07/18/2024 Fara Beyer R.N. Seth Lapp R.NBonny Vital Signs every 30 01:59 07/18/2024 02:21 07/18/2024 02:31 07/18/2024 minutes Fara Beyer R.N. Seth Lapp R.NBonny Oxygen titrate to 92% 01:59 07/18/2024 02:21 07/18/2024 02:31 07/18/2024 Fara Beyer R.N. Seth Lapp, RBonnyNBonny 3 of 4 Order Sheet [employer] Consultant 01:59 07/18/2024 02:21 07/18/2024 02:31 07/18/2024 Fara Beyer R.N. Seth Lapp, R.NBonny [Electronically signed by Mary Nicole D.O. (07/18/2024 08:18 EST)] 4 of 4 Normal [facility] ED PHYSICIAN CLINICAL REPORT on 07-18-2024 ED PHYSICIAN CLINICAL REPORT Narrative Physician Clinical Narrative [address] [address] [id number] 07/18/2024 Patient: CECILIA SENIOR Sex: Female : 1990 Age: 34y Disposition: Discharge to Home Disposition Decision Time: 03:54 07/18/2024 Departure Time: 04:25 07/18/2024 Measurements Wt: 145.6 kg, Ht/Spencer: 69.0 in, BMI: 47.40 Initial Vital Sign Measured Time BP MAP HR RR O2Sat ETCO2 Temp Pain GCS RTS 01:44 07/18/2024 18 98.1 F 8 Time Seen: 01:45 07/18/2024. Arrived- By private vehicle. Historian- patient. HISTORY OF PRESENT ILLNESS Chief Complaint: ABDOMINAL PAIN. It is described as sharp and it is described as located in the right abdomen and left abdomen and in the periumbilical area and radiating to the low back. This started 3 days; Complaining of abdominal pain that started last Wednesday. Has been gradually getting worse. States that she can not eat because anything she had she vomits it back up. She states about the only thing she has been able to keep down as water. She states last 4 days she has hardly had any sleep at all due to the pain. Denies any blood in her stool. Denies any bloody emesis. and is still present (worse). At its maximum, severity described as 8 / 10. When seen in the E.D., severity described as 8 / 10. The patient has had nausea. No vomiting or diarrhea. Similar symptoms previously. Patient has had similar symptoms several times. Recent medical care: The patient was seen recently at this facility and another facility in the emergency Narrative department. ( seen at [place] [facility] yesterday but left before testing could be done was also seen here recently but eloped before testing.). REVIEW OF SYSTEMS RESPIRATORY: No difficulty breathing or cough. SKIN: No skin rash. EYES: No blurred vision. THROAT: No sore throat. NEUROLOGICAL: No headache. CONSTITUTIONAL: No fever or chills. The patient has not had weight loss. : No difficulty with urination, pain with urination or urinary frequency. GI: No constipation, black stools or hematemesis. MUSCULOSKELETAL: No joint pain. CVS: No chest pain. PAST HISTORY See nurses notes. Endometriosis. Ovarian cyst. Post-traumatic stress disorder. Depression. Depression Endometriosis PTSD Surgeries: Cholecystectomy. Dilatation and Curettage. Surgeries: Gallbladder Surgery Medications: no known home medications Allergies: aspirin Toradol trazodone Valium SOCIAL HISTORY Heavy tobacco smoker- less than 1 pack per day. Drug use: marijuana. No alcohol use. ADDITIONAL NOTES 2 of 13 Narrative The nursing notes have been reviewed. PHYSICAL EXAM Appearance: Alert. Oriented X3. Patient in mild distress. Eyes: Pupils equal, round and reactive to light. ENT: Nose normal. Pharynx normal. Neck: Normal inspection. Neck supple. CVS: Normal heart rate and rhythm. Heart sounds normal. Pulses normal. Respiratory: No respiratory distress. Breath sounds normal. Abdomen: Soft. Moderate tenderness diffusely with guarding present. No rebound tenderness. Abnormal bowel sounds: hyperactive. No organomegaly. Obese. No distention or mass present. Back: Moderate CVA tenderness on the right and left. Skin: Skin warm and dry. No rash. Extremities: Extremities exhibit normal ROM. No lower extremity edema. Neuro: Oriented X 3. No motor deficit. No sensory deficit. LABS, X-RAYS, AND EKG 12-LEAD EKG: EKG time: 02:37 07/18/2024. Normal sinus rhythm. Rate: 63. Normal P waves. Normal QRS complex. Normal axis. Non-specific ST segment / T wave abnormalities. The study has been interpreted contemporaneously by me. Interpretation time: 02:38 07/18/2024. CT Abdomen - Pelvis: No acute disease. Laboratory Tests: C-REACTIVE PROTEIN Final MAK: 07/18/2024 02:25:00 EST MsgRcvd: 07/18/2024 03:10 EST Lab Test Result Reference Status Received Comments 07/18/2024 03:10 CRP <0.50 mg/dl 0.00 - 0.90 Final EST CBC + DIFF Final MAK: 07/18/2024 02:25:00 EST MsgRcvd: 07/18/2024 03:01 EST 3 of 13 Narrative Lab Test Result Reference Status Received Comments 07/18/2024 03:01 CBC-COMPLETE CBC + DIFF Final EST BLOOD COUNT 07/18/2024 03:01 WBC 9.7 x 10/UL 4.5 - 10.8 Final EST 07/18/2024 03:01 RBC 4.65 x 10/UL 4.10 - 5.30 Final EST 07/18/2024 03:01 HEMOGLOBIN 13.5 g/dl 12.0 - 16.0 Final EST 07/18/2024 03:01 HEMATOCRIT 41.1 % 34.0 - 46.0 Final EST 07/18/2024 03:01 MCV 88 fl 80 - 99 Final EST 07/18/2024 03:01 MCH 29 pg 27 - 33 Final EST 07/18/2024 03:01 MCHC 33 X10 3 32 - 36 Final EST 07/18/2024 03:01 RDW/CV 15.3 % 12.0 - 15.6 Final EST 07/18/2024 03:01 PLATELET 350 x10/UL 150 - 450 Final EST 07/18/2024 03:01 AUTOMATED MPV 7.8 fl 6.6 - 10.5 Final EST DIFFERENTIAL 07/18/2024 03:01 NEUT % 6 (more content not included)... Normal [facility] ED SUPER BILLon 07-18-2024 ED SUPER BILL [facility] [address] [place] [address] [id number] 07/18/2024 Patient: CECILIA SENIOR Sex: Female : 1990 Age: 34y Facility Professional Category Item Description Code Code Quantity Fee Total Drugs Normal Saline 435059 1 $0.00 $0.00 1000cc (083115) Nurse/E/M EMERGENCY 081653 1 $0.00 $0.00 DEPT VISIT HIGH SEVERITYFUNCJ (16572-14) Nurse/IV/IM/Infusion s Hydration 405214 1 $0.00 $0.00 additional hour (19552) Nurse/IV/IM/Infusion s IVP additional 671474 4 $0.00 $0.00 push (19093) Nurse/IV/IM/Infusion s IVP initial (89368) 509416 1 $0.00 $0.00 Grand $0.00 Total Providers Mary Nicole D.O. Chief Complaint 1 of 2 Superbill ABDOMINAL PAIN. Principal Diagnosis Acute generalized abdominal pain. Vomiting with nausea and dehydration. Not bilious. Acute urinary tract infection with cystitis. No hematuria. Not associated with indwelling catheter. Hypokalemia ICD-10 Codes R10.84: Generalized abdominal pain R11.2: Nausea with vomiting, unspecified R11.10: Vomiting, unspecified E87.6: Hypokalemia K52.9: Noninfective gastroenteritis and colitis, unspecified N30.90: Cystitis, unspecified without hematuria 2 of 2 Normal [facility] ED VISIT SUMMARYon ED VISIT SUMMARY Visit Overview Visit Overview [facility] [address] [place] [address] [id number] 07/18/2024 Patient: CECILIA SENIOR Sex: Female : 1990 Age: 34y 07/18/2024 08:18 AM EST ED Arrival:01:39 07/18/2024 EST Status:not Recent Travel:no Language:eng Adv Directive: Isolation Status: Ethnicity:N Fall Risk:no risk Infectious Disease Exposure:no Measurements:5'9 / 175.3 Self-Harm Status:risk Sepsis Screen:negative cm 321.0 lb / 145.6 kg Chief Complaint:ABDOMINAL PAIN, NAUSEA, VOMITING, (5 days ago), and (daniela) ALLERGIES aspirin Toradol trazodone Valium HOME MEDICATIONS None 1 of 4 Visit Overview PAST MEDICAL HISTORY / PROBLEMS Depression Endometriosis Last normal menstrual period- 5 days ago Ovarian cyst Post-traumatic stress disorder See nurses notes PAST SURGICAL HISTORY Cholecystectomy Dilatation and Curettage Gallbladder Surgery SOCIAL HISTORY Nutritional assessment: No deficits Smoking status: Yes Alcohol use: No Drug use: Yes ED COURSE MEDICATIONS GIVEN IN EMERGENCY DEPARTMENT 02:25 07/18/24 IV NS 0.9 % 1000 mL 999 mL/hr 02:28 07/18/24 Zofran IVP 4 mg 02:29 07/18/24 MORPHine IVP 4 mg 03:22 07/18/24 Reglan IVP 10 mg 03:24 07/18/24 Potassium Chloride PO 40 mEq 03:24 07/18/24 HYDROmorphone (Dilaudid) IVP 1 mg cefTRIAXone (Rocephin) IVPB 1gm/50ml NS 1 g diluted in sodium chloride IVPB 0.9 % 04:12 07/18/24 Minibag+ 50 mL 100 mL/hr IV SITE INFORMATION INTAKE OUTPUT 2 of 4 Visit Overview REASSESMENT (most recent) 02:51 07/18/24. Ambulatory to room. ( Abd pain, nausea, vomiting, diarrhea for several days. Was at [facility] yesterday and today, went ama yesterday due to wait time.). GENERAL / NEURO / PSYCH: Alert. Oriented X 4. Appears in no acute distress. RESPIRATORY: Respirations not labored. Breath sounds within normal limits. CVS: Normal sinus rhythm noted. Capillary refill less than 2 seconds. VITAL SIGNS First Vitals Last Vitals Temp 01:44 07/18/24 98.1 F Temp 04:19 07/18/24 BP 01:44 07/18/24 BP 04:19 07/18/24 144/85 HR 01:44 07/18/24 HR 04:19 07/18/24 72 RR 01:44 07/18/24 18 RR 04:19 07/18/24 O2 Sat 01:44 07/18/24 O2 Sat 04:19 07/18/24 Pain 01:44 07/18/24 8 Pain 04:19 07/18/24 ETCO2 01:44 07/18/24 ETCO2 04:19 07/18/24 GCS 01:44 07/18/24 GCS 04:19 07/18/24 RTS 01:44 07/18/24 RTS 04:19 07/18/24 PROCEDURES NURSING INTERVENTIONS LABS / STUDIES LABS / STUDIES ORDERED CBC w Diff CMP CRP CT ABD/PEL w Cont EKG - ED HCG, Qual Serum Lactate, Serum Lipase Troponin-I Urinalysis Urine Culture [CCL] 3 of 4 Visit Overview LABS - ABNORMAL RESULTS CMP with eGFR POTASSIUM 2.8 mmol/L (LL) CLINICAL IMPRESSION ACUTE GENERALIZED ABDOMINAL PAIN ACUTE URINARY TRACT INFECTION WITH CYSTITIS. NO HEMATURIA. NOT ASSOCIATED WITH INDWELLING CATHETER HYPOKALEMIA VOMITING WITH NAUSEA AND DEHYDRATION. NOT BILIOUS 4 of 4 Normal [facility] ED VITALS FLOW SHEETon 07-18 ED VITALS FLOW SHEET Vitals Vital Sign Flow Sheet [address] [place] [address] [id number] 07/18/2024 Patient: CECILIA SENIOR Sex: Female : 1990 Age: 34y Measurements Wt: 145.6 kg, Ht/Spencer: 69.0 in, BMI: 47.40 Measured Time BP MAP HR RR O2Sat ETCO2 Temp Pain GCS RTS 04:19 07/18/2024 144/85 98 72 04:14 07/18/2024 77 97% 04:09 07/18/2024 76 95% 04:04 07/18/2024 78 97% 03:59 07/18/2024 73 97% 03:54 07/18/2024 71 94% 03:49 07/18/2024 140/77 98 71 03:39 07/18/2024 78 98% 03:34 07/18/2024 68 87% 03:33 07/18/2024 142/100 110 70 03:29 07/18/2024 70 99% 03:24 07/18/2024 76 99% 03:19 07/18/2024 66 99% 03:18 07/18/2024 112/73 86 70 03:14 07/18/2024 73 100% 1 of 2 Vitals Measured Time BP MAP HR RR O2Sat ETCO2 Temp Pain GCS RTS 03:10 07/18/2024 83 99% 03:03 07/18/2024 144/66 92 66 02:51 07/18/2024 79 98% 02:48 07/18/2024 174/91 118 71 02:46 07/18/2024 66 95% 02:41 07/18/2024 64 96% 01:51 07/18/2024 77 98% 01:49 07/18/2024 95% 01:48 07/18/2024 167/93 115 91 01:44 07/18/2024 18 98.1 F 8 2 of 2 Normal [facility] LACTATEon 07-18-2024 Lactate [Moles/Vol] 1.2 mmol/L Normal 0.4 - 2.0 [facility] Comment on above: Performed By: #### 2 [id number] #### [facility],[address] [place] [address] LIPASEon 07-18-2024 Lipase [Catalytic activity/Vol] 66.0 U/L Normal 15.0 - 78.0 [facility] Comment on above: Result Comment: *PLE ASE NOTE THAT RANGES FOR LIPASE HAVE CHANGED OF 08/20/23 DUE TO AN ASSAY UPDATE BY THE REED POLISHER.THE NEW ASSAY RANGE IS 6-250 U/L, WITH A REFERENCE RANGE OF 16-77 U/L. Performed By: #### 2 [id number] ####[facility],[address] [place], [place] [phone] SERUM QUALon 07-18 EXTERNAL QC DONE? YES Normal [facility] Comment on above: Performed By: #### 2 33733 #### [facility],[address] [place] [address] INTERNAL QC PASS Normal [facility] Comment on above: Performed By: #### 2 75104 #### [facility],[address] [place] [address] SER Negative Normal NEGATIVE [facility] Comment on above: Performed By: #### 2 41128 #### [facility],[address] [place] [address] TROPONINon 07-18-2024 HS TROPONIN 20.6 pg/mL Normal 0.0 - 51.4 [facility] Comment on above: Performed By: #### 2 04340 ####[facility],[address] [place], [place] [phone] URINALYSISon 07-18-2024 Amorphous NONE Normal [facility] Comment on above: Performed By: #### 2 55432 #### [facility],[address] [place] [address] Bacteria 2+ Normal [facility] Comment on above: Performed By: #### 2 11403 #### [facility],[address] [place], [place] [phone] Bilirubin Ql (U) Negative Normal NORMAL: NEGATIVE [facility] Comment on above: Performed By: #### 2 35515 #### [facility],[address] [place], [place] [phone] Casts NONE Normal [facility] Comment on above: Performed By: #### 2 73954 #### [facility],[address] [place], [place] [phone] Clarity (U) sl.cloudy Normal NORMAL: CLEAR [facility] Comment on above: Performed By: #### 2 59120 #### [facility],[address] [place] [address] Color (U) pamela Normal NORMAL: YELLOW [facility] Comment on above: Performed By: #### 2 25272 #### [facility],[address] [place] [address] Crystals LM Nom (Urine sed) NONE Normal [facility] Comment on above: Performed By: #### 2 80747 #### [facility],[address] [place] [address] 18279 Epi Cells MANY Normal [facility] Comment on above: Performed By: #### 2 15937 #### [facility],[address] [place] [address]7467 Glucose Ql (U) NORM Normal NORMAL: NORMAL [facility] Comment on above: Performed By: #### 2 55968 #### [facility],[address] [place] [address] Hemoglobin Ql (U) 250 Abnormal NORMAL: NEGATIVE [facility] Comment on above: Performed By: #### 2 66405 #### [facility],[address] [place] [address] 36484 Ketone 150 Abnormal NORMAL: NEGATIVE [facility] Comment on above: Performed By: #### 2 36224 #### [facility],[address] [place] [address]71 Leukocytes 25 Abnormal NORMAL: NEGATIVE [facility] Comment on above: Performed By: #### 2 25760 #### [facility],[address] [place] [address]15[address] Mucous NONE Normal [facility] Comment on above: Performed By: #### 2 56056 #### [facility],[address] [place] [address]3660 Nitrite Ql (U) Negative Normal NORMAL: NEGATIVE [facility] Comment on above: Performed By: #### 2 84613 #### [facility],[address] [place] [address]170 pH (U) 6.5 [pH] Normal NORMAL: 5.0-8.0 [facility] Comment on above: Performed By: #### 2 37462 #### [facility],[address] [place] [address] 18987 Protein Ql (U) 100 Abnormal NORMAL: NEGATIVE [facility] Comment on above: Performed By: #### 2 94234 #### [facility],[address] [place] [address] Rbc 0-5 Normal 0-3/hpf [facility] Comment on above: Performed By: #### 2 16534 #### [facility],[address] [place] [address] Sp [place] 1.015 Normal NORMAL: 1.010-1.030 [facility] Comment on above: Performed By: #### 2 21853 #### [facility],[address] [place] [address] Specimen Type R Normal [facility] Comment on above: Performed By: #### 2 33166 #### [facility],[address] [place], [place] [phone] Urinalysis dipstick W Reflex Microscopic panel (U) SEE BELOW Normal [facility] Comment on above: Result Comment: MICR OSCOPIC Performed By: #### 2 53988 #### [facility],[address] [place] [address] Urobilinog 1 Abnormal NORMAL: NORMAL [facility] Comment on above: Performed By: #### 2 18206 #### [facility],[address] [place] [address] Wbc 1-5 Normal 0-5/hpf [facility] Comment on above: Performed By: #### 2 29448 #### [facility],[address] [place] [address] 74740 Yeast NONE Normal [facility] Comment on above: Performed By: #### 2 44922 #### [address] [address] Chest PA and Lateralon 07-17 Chest PA and Lateral [facility] Imaging Services [address] [place] [address] Chest PA and Lateral MR#: [id number] Acct: [id number] Name: CECILIA ABBASI Rep #: [id number] : 1990 F 34 From: Tiago Alexander MD PCP: DI Smith Status: DEP ER Study: Chest PA and Lateral Date of Exam: 07/17/24 Exam# [id number] Ordering Dr: Vandana Waters. [id number] STUDY: X-RAY CHEST REASON FOR EXAM: Female, 34 years old. Rib pain TECHNIQUE: Frontal and lateral views of the chest. COMPARISON: None. FINDINGS: There are mild right lower lung increased opacities. There is no demonstrated pleural abnormality. Normal size heart. Normal mediastinum and chasidy. Normal visualized pulmonary arteries. Normal visualized aortic arch and descending thoracic aorta. Normal visualized thoracic spine. Normal visualized ribs, clavicles, and shoulders. There is no demonstrated abnormality of the visualized soft tissue structures of the upper abdomen. RAD/Chest PA and Lateral IMPRESSION: Mild right lower lung infiltrate. Electronically Signed: Tiago Alexander MD at 20:12 EST , CC: PROMOTIONS ASSISTANTRomy Mcdermott; ED PHYSICIAN PROVIDER Correctional Maintenance Technician: Signed Normal [facility] Emergency Department Summary on 07-16-2024 Emergency Department Summary [facility] Medical Records Department [address] [place] [address] Emergency Department Summary 07/16/24 MR#: [id number] Acct: [id number] Name: CECILIA ABBASI Rep #: [id number] : 1990 34 From: Jai Arizmendi MD PCP: DI Simth Status:DEP ER Location: ED HPI HPI - GI History of Present Illness Chief Complaint: Abd Pain Narrative Narrative: 34-year-old female past medical history of bipolar disorder, PTSD, was seen in the emergency department within the last 24 hours with 4 to 5 days of abdominal pain. She states they gave her Haldol, and sent her home. Her significant other states that she is complaining of a tearing pain and ripping sensation in the left lower quadrant of her abdomen. She does have history of endometriosis. PFSH PFSH Medical History PTSD (post-traumatic stress disorder) Bipolar 1 disorder Anxiety Osteoarthritis of right knee Right knee pain Home Medications ???Medication ???Instructions ???Recorded ???Last Taken ???Type ondansetron 4 mg disintegrating 4 mg PO Q8H PRN PRN Nausea #10 tabs 07/15/24 Unknown Rx tablet Allergy/AdvReac Type Severity Reaction Status Date / Time trazodone Allergy Severe Anaphylaxis Verified 07/16/24 13:51 sulfamethoxazole (From Allergy Intermediate Rash Verified 07/16/24 13:51 Bactrim) trimethoprim (From Bactrim) Allergy Intermediate Rash Verified 07/16/24 13:51 aspirin Allergy Swelling Verified 07/16/24 13:51 peanut (peanuts) Allergy Other Verified 07/16/24 13:51 diazepam (From Valium) AdvReac Other Verified 07/16/24 13:51 Family History Mother Heart disease Father Seizures Surgical History H/O laparoscopy History of cholecystectomy Social History household members: spouse and family Smoking Status: Current every day smoker tobacco type: cigarettes and e-cigarettes alcohol intake: never ROS ROS ED ROS Narrative Constitutional: No fever, no chills. HEENT: No sore throat. No neck pain. No loss of vision. No rhinorrhea. Cardiovascular: No chest pain. No palpitations. No pedal edema. Respiratory: No cough, no shortness of breath. Abdominal: Left lower quadrant abdominal pain. Feels like tearing or ripping. No nausea. No vomiting. Genitourinary: No dysuria. No hematuria. Musculoskeletal: No myalgias. No arthralgias. Neurologic: No headaches. No dizziness. No lightheadedness. EXAM Physical Exam Narrative Exam Narrative: Afebrile. Vital signs noted. Nontoxic-appearing. Upon entering the room, she is bent over the cot, holding onto the guard rail, and hyperventilating. Cardiovascular examination reveals a regular rate and rhythm. Lungs are clear to auscultation bilaterally. Abdomen soft, obese, with positive bowel sounds. Questionable tenderness left lower quadrant of the abdomen. Psychiatric examination shows mild agitation, she stand up, then bent over the bed again, and intermittently scream. Const Vital Signs: 07/16/24 13:51 Temperature 97.6 F L Temperature Source Temporal Pulse Rate 98 Respiratory Rate 30 H Blood Pressure 196/145 H Blood Pressure Mean 162 Pulse Ox 100 Oxygen Delivery Method Room Air MDM MDM MDM Narrative Medical decision making narrative: I reviewed the patient's prior ED visit from last evening. Apparently, she had left a different ED where they state that the dictation that apparently she had labs drawn and was given the diagnosis of panic attack, and did not like that diagnosis so she presented to the emergency department here. Also had been given Benadryl and Ativan. She was given Haldol 2 mg intravenously, and workup was pursued. I reviewed the laboratory work from within 24 hours and she has slightly elevated white count of 14 which I think is nonspecific. She was also given a prescription for Zofran. She was positive for marijuana but did not want to try the capsaicin for her abdominal pain. Today, her history and physical is mildly limited because of her behavior, and not answering certain questions. When I spoke to the patient and her significant other to tell them that I was going to review her visit from last evening, he stated something to the effect that they gave her Haldol and sent her home. Differential diagnosis for abdominal pain includes ureterolithiasis versus diverticulitis versus colitis. I did not see that yesterday evening that any imaging was performed, so I felt that CT of the abdomen and pelvis with IV contrast may be appropriate. In further review of the ED visit, patient and her significant other had declined any imaging. I do not feel doyle (more content not included)... Normal [facility] CBC + DIFFon 07-15-2024 Baso # 0.03 x10EE3/UL Normal 0.00 - 0.10 [facility] Comment on above: Performed By: #### 2 [id number] #### [place] [address] Basophils/100 WBC (Bld) 0.2 % Normal 0.0 - 2.0 [facility] Comment on above: Performed By: #### 2 43270 #### [place] [address] CBC + DIFF Normal [facility] Comment on above: Result Comment: CBC- COMPLETE BLOOD COUNT Performed By: #### 2 77656 #### [place] [address] EO # 0.06 x10EE3/UL Normal 0.00 - 0.50 [facility] Comment on above: Performed By: #### 2 12261 #### [place] [address] Eosinophils/100 WBC (Bld) 0.4 % Normal 0.0 - 7.0 [facility] Comment on above: Performed By: #### 2 71325 #### [place] [address] Erythrocyte distribution width (RBC) [Ratio] 14.9 % Normal 12.0 - 15.6 [facility] Comment on above: Performed By: #### 2 [id number] #### [place] [address] Hematocrit (Bld) [Volume fraction] 41.1 % Normal 34.0 - 46.0 [facility] Comment on above: Performed By: #### 2 96955 #### [facility],[address] [place], [place] [id number] Hemoglobin (Bld) [Mass/Vol] 13.6 g/dL Normal 12.0 - 16.0 [facility] Comment on above: Performed By: #### 2 74890 #### [facility],[address] [place] [address] Lymph # 3.13 x10EE3/UL High 0.80 - 2.80 [facility] Comment on above: Performed By: #### 2 67344 #### [facility],[address] [place] [address] Lymphocytes/100 WBC (Bld) 20.8 % Normal 20.0 - 45.0 [facility] Comment on above: Performed By: #### 2 11909 #### [facility],[address] [place] [address] MANUAL DIFF N/A Normal [facility] Comment on above: Performed By: #### 2 38079 #### [facility],[address] [place] [address]64 MCH (RBC) [Entitic mass] 29 pg Normal 27 - 33 [facility] Comment on above: Performed By: #### 2 45155 #### [facility],[address] [place] [address] MCHC 33 X10 3 Normal 32 - 36 [facility] Comment on above: Performed By: #### 2 19665 #### [facility],[address] [place] [address] 63473 MCV (RBC) [Entitic vol] 88 fL Normal 80 - 99 [facility] Comment on above: Performed By: #### 2 50202 #### [facility],[address] [place], [place] [id number] [place] # 0.96 x10EE3/UL Normal 0.20 - 1.00 [facility] Comment on above: Performed By: #### 2 99733 #### [facility],[address] [place] [address]17 MONOS % 6.4 % Normal 0.0 - 10.0 [facility] Comment on above: Performed By: #### 2 74485 #### [facility],[address] [place] [address] Morphology Usman (Bld) [Interp] N/A Normal [facility] Comment on above: Performed By: #### 2 41308 #### [facility],[address] [place] [address] Neut # 10.88 x10EE3/UL High 1.50 - 7.10 [facility] Comment on above: Performed By: #### 2 46512 #### [facility],[address] [place], [place] [id number] Neutrophils/100 WBC (Bld) 72.2 % Normal 46.0 - 76.0 [facility] Comment on above: Performed By: #### 2 72990 #### [facility],[address] [place] [address] PLATELET 379 x10EE3/UL Normal 150 - 450 [facility] Comment on above: Performed By: #### 2 77754 #### [facility],[address] [place] [address] Platelet mean volume (Bld) [Entitic vol] 7.6 fL Normal 6.6 - 10.5 [facility] Comment on above: Result Comment: AUTO MATED DIFFERENTIAL Performed By: #### 2 27886 #### [facility],[address] [place] [address] 74558 RBC 4.66 x 10EE6/UL Normal 4.10 - 5.30 [facility] Comment on above: Performed By: #### 2 34801 #### [facility],[address] [place] [address] WBC 15.1 x 10EE3/UL High 4.5 - 10.8 [facility] Comment on above: Performed By: #### 2 10043 #### [facility],[address] [place] [address] CBC W/Diff, Automatedon 11-2 -2023 Absolute Lymph 4.57 X10 3/uL High 0.83-4.51 [facility] Comment on above: Performed By: #### L 400.7600, L400.0001 #### [facility] [address] [place], [address] Absolute Neut 8.3 X10 3/uL High 2.0-7.7 [facility] Comment on above: Performed By: #### L 400.7600, L400.0001 #### [facility] [address] [place], [address] Basophils/100 WBC (Bld) 0.2 % Normal 0-1 [facility] Comment on above: Performed By: #### L 400.7600, L400.0001 #### [facility] [address] [place], [address] Eosinophils/100 WBC (Bld) 0.0 % Normal 0-5 [facility] Comment on above: Performed By: #### L 400.7600, L400.0001 #### [facility] [address] [place], [address] Erythrocyte distribution width (RBC) [Ratio] 15.1 % High 11.6-14.6 [facility] Comment on above: Performed By: #### L 400.7600, L400.0001 #### [facility] [address] [place], [address] Hematocrit (Bld) [Volume fraction] 38.8 % Normal 37-47 [facility] Comment on above: Performed By: #### L 400.7600, L400.0001 #### [facility] [address] [place], [address] Hemoglobin (Bld) [Mass/Vol] 13.4 g/dL Normal 12.0-15.0 [facility] Comment on above: Performed By: #### L 400.7600, L400.0001 #### [facility] [address] [place], [address] IG% 0.300 Normal 0.0-0.9 [facility] Comment on above: Result Comment: IG% - Immature Granulocytes (promyelocytes, myelocytes and metamyelocytes) > 1% indicates that a LEFT SHIFT is Present. Performed By: #### L 400.7600, L400.0001 #### [facility] [address] [place], [address] Lymphocytes/100 WBC (Bld) 32.6 % Normal 19-41 [facility] Comment on above: Performed By: #### L 400.7600, L400.0001 #### [facility] [address] [place], [address] MCH (RBC) [Entitic mass] 29.4 pg Normal 27.0-32.0 [facility] Comment on above: Performed By: #### L 400.7600, L400.0001 #### [facility] [address] [place], [address] MCHC (RBC) [Mass/Vol] 34.5 g/dL Normal 32-36 [facility] Comment on above: Performed By: #### L 400.7600, L400.0001 #### [facility] [address] [place], [address] MCV (RBC) [Entitic vol] 85.1 fL Normal 81-99 [facility] Comment on above: Performed By: #### L 400.7600, L400.0001 #### [facility] [address] [place], [address] Monocytes/100 WBC (Bld) 7.7 % Normal 0-10 [facility] Comment on above: Performed By: #### L 400.7600, L400.0001 #### [facility] [address] [place], [address] Neutrophils/100 WBC (Bld) 59.2 % Normal 47-70 [facility] Comment on above: Performed By: #### L 400.7600, L400.0001 #### [facility] [address] [place], [address] Nucleated RBC (Bld) [#/Vol] 0 10*3/uL Normal 0-5 [facility] Comment on above: Performed By: #### L 400.7600, L400.0001 #### [facility] [address] [place], [address] Platelet mean volume (Bld) [Entitic vol] 10.1 fL Normal 6.2-12.0 [facility] Comment on above: Performed By: #### L 400.7600, L400.0001 #### [facility] [address] [place], [address] Platelets (Bld) [#/Vol] 366 10*3/uL Normal 150-450 [facility] Comment on above: Performed By: #### L 400.7600, L400.0001 #### [facility] [address] [place], [address] RBC (Bld) [#/Vol] 4.56 10*6/uL Normal 4.2-5.4 [facility] Comment on above: Performed By: #### L 400.7600, L400.0001 #### [facility] [address] [place], [address] RDW SD 47.0 fl High 35.1-43.9 [facility] Comment on above: Performed By: #### L 400.7600, L400.0001 #### [facility] [address] [place], [address] WBC (Bld) [#/Vol] 14.0 10*3/uL High 4.4-11.0 [facility] Comment on above: Performed By: #### L 400.7600, L400.0001 #### [facility] [address] [place], [address] CMP with eGFRon 07-15-2024 AGE 34 years Normal [facility] Comment on above: Performed By: #### 2 62463 #### [facility],[address] [place] [address] 33941 Albumin [Mass/Vol] 3.5 g/dL Normal 3.4 - 5.0 [facility] Comment on above: Performed By: #### 2 18960 #### [facility],[address] [place] [address] 76993 Albumin/Globulin [Mass ratio] 0.8 {ratio} Low 0.9 - 1.6 [facility] Comment on above: Performed By: #### 2 37470 #### [facility],[address] [place] [address] 27032 ALK PHOS 85 U/L Normal 46 - 116 [facility] Comment on above: Performed By: #### 2 37582 #### [facility],[address] [place] [address] 09263 ALT [Catalytic activity/Vol] 20 U/L Normal 16 - 63 [facility] Comment on above: Performed By: #### 2 36654 #### [facility],[address] [place] [address] 16030 Anion gap [Moles/Vol] 24 mmol/L High 10 - 20 [facility] Comment on above: Performed By: #### 2 31473 #### [facility],[address] [place] [address] 61874 AST [Catalytic activity/Vol] 26 U/L Normal 13 - 39 [facility] Comment on above: Performed By: #### 2 10915 #### [facility],[address] [place] [address] 80608 B/C RATIO 10 ratio Normal 0 - 30 [facility] Comment on above: Performed By: #### 2 33019 #### [facility],[address] [place] [address]4927 Bilirubin [Mass/Vol] 0.8 mg/dL Normal 0.2 - 1.0 [facility] Comment on above: Performed By: #### 2 18361 #### [facility],[address] [place] [address] 41703 Calcium [Mass/Vol] 9.2 mg/dL Normal 8.5 - 10.1 [facility] Comment on above: Performed By: #### 2 00926 #### [facility],[address] [place] [address] 90049 Chloride [Moles/Vol] 101 mmol/L Normal 98 - 107 [facility] Comment on above: Performed By: #### 2 48931 #### [facility],[address] [place] [address] 25825 CMP with eGFR Normal [facility] Comment on above: Result Comment: COMP REHENSIVE METABOLIC PANEL Performed By: #### 2 90833 #### [facility],[address] [place] [address] 52140 CO2 [Moles/Vol] 16.3 mmol/L Low 21.0 - 32.0 [facility] Comment on above: Performed By: #### 2 40726 #### [facility],[address] [place] [address] 84317 Creatinine [Mass/Vol] 0.79 mg/dL Normal 0.55 - 1.02 [facility] Comment on above: Performed By: #### 2 13558 #### [facility],[address] [place] [address] 61711 GFR/1.73 sq M.predicted among non-blacks MDRD (S/P/Bld) [Vol rate/Area] mL/min/{1.73_m2} Normal 60 - 999 [facility] Comment on above: Performed By: #### 2 76538 #### [facility],[address] [place] [address] 53271 Result Comment: ACCO RDING TO THE NATIONAL KIDNEY DISEASE EDUCATION PROGRAM(NKDE), A NORMAL eGFR IS A VALUE GREATER THAN OR EQUAL TO 60 ML/MIN/1.73 SQ METERS. CHRONIC KIDNEY DISEASE: <60mL/MIN/1.73 SQ METERS KIDNEY FAILURE: <15mL/MIN/1.73 SQ METERS THIS TEST SHOULD ONLY BE USED FOR PATIENTS 18 YEARS OF AGE AND OLDER. Globulin (S) [Mass/Vol] 4.2 g/dL High 1.5 - 3.8 [facility] Comment on above: Performed By: #### 2 98456 #### [facility],[address] [place] [address] 20952 Glucose [Mass/Vol] 118 mg/dL High 74 - 106 [facility] Comment on above: Performed By: #### 2 55991 #### [facility],[address] [place] [address] 50481 Potassium [Moles/Vol] 3.2 mmol/L Low 3.5 - 5.1 [facility] Comment on above: Performed By: #### 2 65149 #### [facility],[address] [place] [address] 94791 Protein [Mass/Vol] 7.7 g/dL Normal 6.4 - 8.2 [facility] Comment on above: Performed By: #### 2 61848 #### [facility],[address] [place] [address] 38726 Sodium [Moles/Vol] 138 mmol/L Normal 136 - 145 [facility] Comment on above: Performed By: #### 2 86134 #### [facility],[address] [facility] [address] Urea nitrogen [Mass/Vol] 8 mg/dL Normal 7 - 18 [facility] Comment on above: Performed By: #### 2 19645 #### [facility],[address] [facility] [address] Comprehensive Metabolic Prof ilon 07-15-2024 Albumin/Globulin [Mass ratio] 1.0 {ratio} Normal 0.9-2.4 [facility] Comment on above: Performed By: #### L 400.7600, L400.0001 #### [facility] [address] [place], [address] BUN/CRE 14.1 RATIO Normal 10-20 [facility] Comment on above: Performed By: #### L 400.7600, L400.0001 #### [facility] [address] [place], [address] CA,Total 9.3 mg/dL Normal 8.5-10.1 [facility] Comment on above: Performed By: #### L 400.7600, L400.0001 #### [facility] [address] [place], [address] Chloride [Moles/Vol] 105 mmol/L Normal 98-107 [facility] Comment on above: Performed By: #### L 400.7600, L400.0001 #### [facility] [address] [place], [address] CO2 [Moles/Vol] 17.0 mmol/L Low 21.0-32.0 [facility] Comment on above: Performed By: #### L 400.7600, L400.0001 #### [facility] [address] [place], [address] Creatinine [Mass/Vol] 0.57 mg/dL Normal 0.55-1.02 [facility] Comment on above: Result Comment: The validity of the calculated GFR GFRAA in patients over 70 years has not been determined. Clinical correlation is essential. Performed By: #### L 400.7600, L400.0001 #### [facility] [address] [place], [address] ECRCL 211.16 ml/min Normal [facility] Comment on above: Performed By: #### L 400.7600, L400.0001 #### [facility] [address] [place], [address] EST GFR - AA 155 mL/min Normal >60 [facility] Comment on above: Result Comment: Afri can [place] GFR Calc Performed By: #### L 400.7600, L400.0001 #### [facility] [address] [place], [address] GAP 14 Normal 5-15 [facility] Comment on above: Performed By: #### L 400.7600, L400.0001 #### [facility] [address] [place], [address] GFR/1.73 sq M.predicted among non-blacks MDRD (S/P/Bld) [Vol rate/Area] 128 mL/min/{1.73_m2} Normal >60 [facility] Comment on above: Result Comment: Non- GFR Calc Performed By: #### L 400.7600, L400.0001 #### [facility] [address] [place], [address] Glucose [Mass/Vol] 104 mg/dL Normal 74-106 [facility] Comment on above: Result Comment: Fast ing Glucose result from 100 to 125 mg/dL suggests IMPAIRED HOMEOSTASIS per A.D.A. criteria. Performed By: #### L 400.7600, L400.0001 #### [facility] [address] [place], [address] Potassium [Moles/Vol] 3.2 mmol/L Low 3.5-5.1 [facility] Comment on above: Performed By: #### L 400.7600, L400.0001 #### [facility] [address] [place], [address] Sodium [Moles/Vol] 137 mmol/L Normal 136-145 [facility] Comment on above: Performed By: #### L 400.7600, L400.0001 #### [facility] [address] [place], [address] Urea nitrogen [Mass/Vol] 8 mg/dL Normal 7-18 [facility] Comment on above: Performed By: #### L 400.7600, L400.0001 #### [facility] [address] [place], [address] ED MED ADMINISTRATION DETAIL on 07-15-2024 ED MED ADMINISTRATION DETAIL Operations Lead Medication Administration Record [address] [address] [id number] 07/15/2024 Patient: CECILIA SENIOR Sex: Female : 1990 Age: 34y MEASUREMENTS: Wt: 127.0 kg ALLERGIES: Toradol, Valium, aspirin, trazodone Medication Ordered Medication Administration Date/Time IV NS 0.9 % 1000 13:18 07/15 IV NS 0.9 % 1000 mL started in bag#1 1000 mL at Started mL at 999 mL/hr 999 mL/hr via Site# 1. Allergies verified and confirmed 5 rights. IV 13:18 07/15/2024 (NOW x1) patency established. IV site checked: no pain, redness, or swelling. Paul Weems R.N. IV flushed thoroughly pre-medication administration. Information Stopped reviewed with patient and spouse including reason for taking this 13:36 07/15/2024 medication, signs of allergic reaction and precautions. Verbalizes Paul Weems R.N. understanding. - 13:19 Paul Weems R.N. Scanned 13:36 07/15 Medication Discontinued: bag #1 discontinued. Total amount infused: 200 mL. (Pt discontinues IV.) - 13:40 Paul Weems R.N. LORazepam 13:23 07/15 LORazepam (Ativan) IVP 1 mg given via Site# 1. Given (Ativan) IVP 1 mg Allergies verified and confirmed 5 rights. IV patency established. IV 13:23 07/15/2024 (NOW x1) site checked: no pain, redness, or swelling. IV flushed thoroughly Paul Weems, R.N. pre-medication administration. Information reviewed with patient Scanned and spouse including reason for taking this medication, signs of allergic reaction, precautions and sedative warning. Verbalizes understanding. Medication Wastage: 1 mg wasted. - 13:23 Paul Weems R.N. 1 of 2 Operations Lead Medication Ordered Medication Administration Date/Time Benadryl IVP 25 mg 13:19 07/15 Benadryl IVP 25 mg given via Site# 1. Allergies Given (NOW x1) verified and confirmed 5 rights. IV patency established. IV site 13:19 07/15/2024 checked: no pain, redness, or swelling. IV flushed thoroughly Paul Weems, R.N. pre-medication administration. Information reviewed with patient Scanned and spouse including reason for taking this medication, signs of allergic reaction, precautions and sedative warning. Verbalizes understanding. Medication Wastage: 25 mg wasted. - 13:21 Paul Weems R.N. 2 of 2 Normal [facility] ED NURSES CLINICAL NOTEon ED NURSES CLINICAL NOTE Nurse Narrative Nurse Clinical [address] [address] [id number] 07/15/2024 Patient: CECILIA SENIOR Sex: Female : 1990 Age: 34y Disposition: Left During Disposition Decision Time: 13:38 07/15/2024 Departure Time: 13:38 07/15/2024 TRIAGE Arrived by private vehicle. Historian: family. Accompanied by family. Triage time: 12:52 07/15/2024. Acuity: LEVEL 3. Chief Complaint: ABDOMINAL PAIN. Onset. (2 days ago). ( pt unable to provide HPI medical hx, surgical hx. history obtained from significant other.). The patient has had hematuria, irregular periods, pelvic pain and vaginal bleeding. SEPSIS SCREEN: NEGATIVE. SIRS criteria negative. No possible sources of infection. -- 13:03 07/15/24 EUNICE Yadav R.N. 12:59 07/15/24. BP: 176/121 MAP: 139. HR: 97. RR: 60. (pt hyperventilating Dr. Mary Kate stover.). O2 saturation: 98% on room air. Temperature: 97.5 F. Pain level now 06/01. -- 12:59 07/15/24 EUNICE Yadav R.N. Measurements: 12:58 07/15/24 Wt: 127.0 kg -- 12:58 07/15/24 EUNICE Yadav R.N. Allergies: aspirin -- 12:59 07/15/24 EUNICE Yadav R.N. Toradol -- 12:59 07/15/24 EUNICE Yadav R.N. 1 of 4 Nurse Narrative trazodone -- 12:59 07/15/24 EUNICE Yadav R.N. Valium -- 12:59 07/15/24 EUNICE Yadav R.N. Problems: unable to obtain problem list -- 12:59 07/15/24 EUNICE Yadav R.N. ADDITIONAL SURGERIES: unable to obtain surgical history -- 12:59 07/15/24 EUNICE Yadav R.N. History 12:52 07/15/24. SOCIAL HX: Heavy tobacco smoker- less than 1 pack per day. The patient has not traveled outside the [place] Infectious disease exposure: No infectious disease exposure. ABUSE ASSESSMENT: Deferred due to patient condition. SELF HARM ASSESSMENT: Self harm assessment deferred due to patient condition. FALL RISK ASSESSMENT: Fall risk assessment completed. No risk factors identified. -- 13:03 07/15/24 EUNICE Yadav R.N. Assessment 12:52 07/15/24. GENERAL / NEURO / PSYCH: Mood/affect abnormal (restless, agitated and animated). -- 13:03 07/15/24 EUNICE Yadav R.N. PHYSICAL ASSESSMENT 13:05 07/15/24. Ambulatory to room. (Pt c/o severe lower abdominal pain x three days, reports starting her menses two days ago.). GENERAL / NEURO / PSYCH: Appears in pain and anxious. (Pt is animated, is crying and inconsolable.). The patient appears in pain and uncomfortable, appears anxious and restless and has poor eye contact. HEENT: Mucous membranes are pink. RESPIRATORY: Respirations not labored. Breath sounds within normal limits. CVS: Capillary refill less than 2 seconds. 2 of 4 Nurse Narrative GI / : The patient has had nausea. Emesis noted. Abdomen soft. Abdominal tenderness in the lower abdomen. Bowel sounds within normal limits. No pain with urination, frequency of urination or urgency of urination. No hematuria. SKIN: Skin is warm and dry. -- 13:31 07/15/24 EUNICE Weems R.N. NURSING PROGRESS NOTES 13:05 07/15/24. Patient identifiers checked. Call light placed in reach. Side rails up x 1. Bed placed in lowest position. Brakes of bed on. ( Pt's significant other is at the bedside.). -- 13:32 07/15/24 EUNICE Weems R.N. 13:08 07/15/24. ( Pt is laying on ER floor, states that she placed self there for comfort. Pt advised to return to ER cot in order to place IV. Pt is crying and shaking, stating I just need a shower to calm down. Pt agrees to stay for IV/medication administration.). -- 13:35 07/15/24 EUNICE Weems R.N. 13:10 07/15/24. Site #1 started via IV in the right antecubital space with an 18g angiocath with aseptic technique and good blood return; 1 attempt. Blood drawn: rainbow set tube(s). Saline lock flushed with 5 mL saline. -- 13:14 07/15/24 EUNICE Weems R.N. 13:18 07/15/24. IV NS 0.9 % 1000 mL started in bag#1 1000 mL at 999 mL/hr via Site# 1. Allergies verified and confirmed 5 rights. IV patency established. IV site checked: no pain, redness, or swelling. IV flushed thoroughly pre-medication administration. Information reviewed with patient and spouse including reason for taking this medication, signs of allergic reaction and precautions. Verbalizes understanding. -- 13:19 07/15/24 Trevor EscaleraNBonny 13:19 07/15/24. Benadryl IVP 25 mg given via Site# 1. Allergies verified and confirmed 5 rights. IV patency established. IV site checked: no pain, redness, or swelling. IV flushed thoroughly pre-medication administration. Information reviewed with patient and spouse including reason for taking this medication, signs of allergic reaction, precautions and sedative warning. Verbalizes understanding. Medication Wastage: 25 mg wasted. -- 13:21 07/15/24 EUNICE Weems R.NBonny 13:23 07/15/24. LORazepam (Ativan) IVP 1 mg given via Site# 1. Allergies verified and c (more content not included)... Normal [facility] ED ORDER SHEET ([facility] ONLY)on 07-15-2024 ED ORDER SHEET ([facility]OE ONLY) Order Sheet Order Sheet [address] [place] [address] [id number] 07/15/2024 Patient: CECILIA SENIOR Sex: Female : 1990 Age: 34y MEASUREMENTS: Wt: 127.0 kg ALLERGIES: Toradol, Valium, aspirin, trazodone MEDICATION/IV/DRIP/F LUID ORDERS Order Description Priority Entered Acknowledged Completed IV NS 0.9 %1000 mL at 999 13:05 07/15/2024 13:13 13:19 mL/hr (NOW x1) Isabel Bliss, 07/15/2024 07/15/2024 Paul Lopez, R.N. R.N. LORazepam (Ativan) IVP1 mg 13:05 07/15/2024 13:13 13:23 (NOW x1) Isabel Bliss, 07/15/2024 07/15/2024 Paul Lopez R.N. R.N. Reason for ordering with alerts: Other pt states she can take --13:05 07/15/2024 Isabel Bliss D.O. Benadryl IVP25 mg (NOW x1) 13:05 07/15/2024 13:13 13:21 Isabel Bliss, 07/15/2024 07/15/2024 Paul Lopez R.NBonny RKandis LAB ORDERS Order Description Priority Entered Acknowledged Collected Completed 1 of 2 Order Sheet CBC w Diff Stat Stat 13:05 07/15/2024 13:13 07/15/2024 13:13 07/15/2024 Paul Forrest Lucas Eastep, D.O. R.N. R.Kiet CMP Stat Stat 13:05 07/15/2024 13:13 07/15/2024 13:13 07/15/2024 Paul Forrest Lucas Eastep, D.O. R.N. R.Kiet Lipase Stat Stat 13:05 07/15/2024 13:13 07/15/2024 13:13 07/15/2024 Paul Forrest Lucas Eastep, D.O. R.N. R.NBonny Urinalysis Stat Stat 13:05 07/15/2024 13:13 07/15/2024 13:13 07/15/2024 Paul Forrest Lucas Eastep, D.O. R.N. R.NBonny Urine - HCG Stat 13:05 07/15/2024 13:13 07/15/2024 13:13 07/15/2024 Stat Paul Forrest Lucas Eastep, D.O. R.N. R.NBonny DIAGNOSTIC STUDY ORDERS Order Description Priority Entered Acknowledged Completed STAFF ORDERS Order Description Priority Entered Acknowledged Collected Completed IV Saline Lock 13:05 07/15/2024 13:13 07/15/2024 13:13 07/15/2024 Paul Forrest Lucas Eastep, D.O. R.N. R.NBonny [Electronically signed by Isbael Bliss D.O. (07/15/2024 14:27 EST)] 2 of 2 Normal [facility] ED PHYSICIAN CLINICAL REPORT on 07-15-2024 ED PHYSICIAN CLINICAL REPORT Narrative Physician Clinical Narrative [address] [place] [address] [phone] 07/15/2024 Patient: CECILIA SENIOR Sex: Female : 1990 Age: 34y Disposition: Left During Disposition Decision Time: 13:38 07/15/2024 Departure Time: 13:38 07/15/2024 Measurements Wt: 127.0 kg Initial Vital Sign Measured Time BP MAP HR RR O2Sat ETCO2 Temp Pain GCS RTS 12:59 07/15/2024 176/121 139 97 60 98% RA 97.5 F 10 Time Seen: 12:51 07/15/2024. Arrived- By private vehicle. Historian- patient. Independent historian- family. History limited by poor cooperation, agitation and severe pain. Physical Exam limited by poor cooperation, agitation and severe pain. HISTORY OF PRESENT ILLNESS Chief Complaint: ABDOMINAL PAIN. It is described as located in the suprapubic area. This started 3 days ago. Said it started 3 days ago. Says pain is a 10/10 it is a constant pain. She also started having her menstrual period. And complains of intense discomfort in her lower abdomen. She does have history of endometriosis PCOS. She has had a cholecystectomy. She is here with her significant other. She does use marijuana and smoke. REVIEW OF SYSTEMS : The patient has had abnormal bleeding and irregular periods. 1 of 9 Narrative PAST HISTORY unable to obtain problem list Surgeries: unable to obtain surgical history Allergies: aspirin Toradol trazodone Valium SOCIAL HISTORY Smoker - current smoking amount unknown. Drug use: marijuana. Recently used drugs days ago. No alcohol use. ADDITIONAL NOTES The nursing notes have been reviewed. PHYSICAL EXAM Appearance: Alert. Oriented X3. Anxious. Appears to be in pain. Does not appear to be lethargic. Eyes: Pupils equal, round and reactive to light. Eyes normal inspection. ENT: Ears normal. Nose normal. Pharynx normal. Neck: Normal inspection. Neck supple. CVS: Normal heart rate. Heart sounds normal. Respiratory: No respiratory distress. Breath sounds normal. Chest nontender. Abdomen: Soft. Tenderness (mild tenderness but she was in severe pain was difficult fully examined she kept moving. I do not appreciate rebound tenderness. She did have bleeding her vagina area.). Back: Normal inspection. Skin: Skin warm and dry. Normal skin color. Extremities: Extremities exhibit normal ROM. Neuro: Oriented X 3. Altered mental status: disoriented to person, place and time. Eyes open- spontaneous. 2 of 9 Narrative Best verbal response- oriented. Best motor response- obeys commands. (patient would answer all questions. However she did appear to be manic. She says she has a history of bipolar disorder.). No motor deficit. No sensory deficit. LABS, X-RAYS, AND EKG Laboratory Tests: CBC + DIFF Final MAK: 07/15/2024 13:10:00 EST MsgRcvd: 07/15/2024 13:31 EST Lab Test Result Reference Status Received Comments 07/15/2024 13:31 CBC-COMPLETE CBC + DIFF Final EST BLOOD COUNT 15.1 x 10/UL 07/15/2024 13:31 WBC 4.5 - 10.8 Final Above high normal EST 07/15/2024 13:31 RBC 4.66 x 10/UL 4.10 - 5.30 Final EST 07/15/2024 13:31 HEMOGLOBIN 13.6 g/dl 12.0 - 16.0 Final EST 07/15/2024 13:31 HEMATOCRIT 41.1 % 34.0 - 46.0 Final EST 07/15/2024 13:31 MCV 88 fl 80 - 99 Final EST 07/15/2024 13:31 MCH 29 pg 27 - 33 Final EST 07/15/2024 13:31 MCHC 33 X10 3 32 - 36 Final EST 07/15/2024 13:31 RDW/CV 14.9 % 12.0 - 15.6 Final EST 3 of 9 Narrative 07/15/2024 13:31 PLATELET 379 x10/UL 150 - 450 Final EST 07/15/2024 13:31 AUTOMATED MPV 7.6 fl 6.6 - 10.5 Final EST DIFFERENTIAL 07/15/2024 13:31 NEUT % 72.2 % 46.0 - 76.0 Final EST 07/15/2024 13:31 LYMPH % 20.8 % 20.0 - 45.0 Final EST 07/15/2024 13:31 MONOS % 6.4 % 0.0 - 10.0 Final EST 07/15/2024 13:31 EO % 0.4 % 0.0 - 7.0 Final EST 07/15/2024 13:31 BASO % 0.2 % 0.0 - 2.0 Final EST 3.13 x10/UL 07/15/2024 13:31 Lymph # 0.80 - 2.80 Final Above high normal EST 10.88 x10/UL 07/15/2024 13:31 Neut # 1.50 - 7.10 Final Above high normal EST 07/15/2024 13:31 [place] # 0.96 x10/UL 0.20 - 1.00 Final EST 07/15/2024 13:31 EO # 0.06 x10/UL 0.00 - 0.50 Final EST 07/15/2024 13:31 Baso # 0.03 x10/UL 0.00 - 0.10 Final EST 07/15/2024 13:31 MANUAL DIFF N/A New Order EST 07/15/2024 13:31 MORPHOLOGY N/A New Order EST 4 of 9 Narrative CMP with eGFR Final MAK: 07/15/2024 13:10:00 EST MsgRcvd: 07/15/2024 13:41 EST Lab Test Result Reference Status Received Comments COMPREHENSIVE 07/15/2024 CMP with eGFR Final METABOLIC 13:41 EST PANEL 07/15/2024 SODIUM 138 mmol/l 136 - 145 Final 13:41 EST 3.2 mmol/L 07/15/2024 POTASSIUM 3.5 - 5.1 Final Below low normal 13:41 EST 07/15/2024 CHLORIDE 101 mmol/L 98 - 107 Final 13:41 ES (more content not included)... Normal [facility] ED SUPER BILLon 07-15-[address] [place] [address] [phone] 07/15/2024 Patient: CECILIA SENIOR Sex: Female : 1990 Age: 34y Item Facility Professional Category Description Code Code Quantity Fee Total Nurse/E/M EMERGENCY 754850 1 $0.00 $0.00 DEPARTMENT VISIT HIGH/URGENT SEVERITY (45084-06) Nurse/IV/IM/Infusion s IVP additional 594649 1 $0.00 $0.00 push (71175) Nurse/IV/IM/Infusion s IVP initial 808548 1 $0.00 $0.00 (60484) Grand Total $0.00 Providers Isabel Bliss D.O. Chief Complaint ABDOMINAL PAIN. 1 of 2 Superbil Principal Diagnosis Acute nontraumatic pain. Suprapubic abdominal pain of unknown cause. Severe menorrhagia and metrorrhagia. ICD-10 Codes R52: Pain, unspecified R10.30: Lower abdominal pain, unspecified N92.0: Excessive and frequent menstruation with regular cycle N93.9: Abnormal uterine and vaginal bleeding, unspecified N92.1: Excessive and frequent menstruation with irregular cycle 2 of 2 Normal [facility] ED VISIT SUMMARYon ED VISIT SUMMARY Visit Overview Visit Overview [address] [place] [address] [phone] 07/15/2024 Patient: CECILIA SENIOR Sex: Female : 1990 Age: 34y 07/15/2024 02:27 PM EST ED Arrival:12:44 07/15/2024 EST Status: Recent Travel:no Language:eng Adv Directive: Isolation Status: Ethnicity:N Fall Risk:no risk Infectious Disease Exposure:no Measurements:280.0 lb / 127.0 kg Self-Harm Status:unknown risk Sepsis Screen:negative Chief Complaint:ABDOMINAL PAIN, (2 days ago), and (pt unable to provide HPI medical hx, surgical hx. history obtained from significant other.) ALLERGIES aspirin Toradol trazodone Valium HOME MEDICATIONS PAST MEDICAL HISTORY / PROBLEMS 1 of 3 Visit Overview Unable To Obtain PAST SURGICAL HISTORY Unknown SOCIAL HISTORY Smoking status: Yes ED COURSE MEDICATIONS GIVEN IN EMERGENCY DEPARTMENT 13:18 07/15/24 IV NS 0.9 % 1000 mL 999 mL/hr 13:19 07/15/24 Benadryl IVP 25 mg 13:23 07/15/24 LORazepam (Ativan) IVP 1 mg IV SITE INFORMATION INTAKE OUTPUT REASSESMENT (most recent) 13:05 07/15/24. Ambulatory to room. (Pt c/o severe lower abdominal pain x three days, reports starting her menses two days ago.). GENERAL / NEURO / PSYCH: Appears in pain and anxious. (Pt is animated, is crying and inconsolable.). The patient appears in pain and uncomfortable, appears anxious and restless and has poor eye contact. HEENT: Mucous membranes are pink. RESPIRATORY: Respirations not labored. Breath sounds within normal limits. CVS: Capillary refill less than 2 seconds. GI / : The patient has had nausea. Emesis noted. Abdomen soft. Abdominal tenderness in the lower abdomen. Bowel sounds within normal limits. No pain with urination, frequency of urination or urgency of urination. No hematuria. SKIN: Skin is warm and dry. VITAL SIGNS First Vitals Last Vitals Temp 12:59 07/15/24 97.5 F Temp 13:38 07/15/24 BP 12:59 07/15/24 176/121 BP 13:38 07/15/24 HR 12:59 07/15/24 97 HR 13:38 07/15/24 2 of 3 Visit Overview First Vitals Last Vitals RR 12:59 07/15/24 60 RR 13:38 07/15/24 O2 Sat 12:59 07/15/24 98% RA O2 Sat 13:38 07/15/24 Pain 12:59 07/15/24 10 Pain 13:38 07/15/24 ETCO2 12:59 07/15/24 ETCO2 13:38 07/15/24 GCS 12:59 07/15/24 GCS 13:38 07/15/24 RTS 12:59 07/15/24 RTS 13:38 07/15/24 PROCEDURES NURSING INTERVENTIONS LABS / STUDIES LABS / STUDIES ORDERED CBC w Diff CMP Lipase Urinalysis Urine - HCG CLINICAL IMPRESSION ACUTE NONTRAUMATIC PAIN SEVERE MENORRHAGIA AND METRORRHAGIA SUPRAPUBIC ABDOMINAL PAIN OF UNKNOWN CAUSE 3 of 3 Normal [facility] ED VITALS FLOW SHEETon 07-15 ED VITALS FLOW SHEET Vitals Vital Sign Flow Sheet [address] [place] [address] [phone] 07/15/2024 Patient: CECILIA SENIOR Sex: Female : 1990 Age: 34y Measurements Wt: 127.0 kg Measured Time BP MAP HR RR O2Sat ETCO2 Temp Pain GCS RTS 12:59 07/15/2024 176/121 139 97 60 98% RA 97.5 F 10 1 of 1 Normal [facility] Emergency Department Summary on 07-15-2024 Emergency Department Summary [facility] Medical Records Department [address] [place] [address] Emergency Department Summary 07/15/24 MR#: [id number] Acct: [id number] Name: CECILIA ABBASI Rep #: [id number] : 1990 34 From: Alejandro Pratt PCP: BILLY SmithC Status:DEP ER Location: ED HPI History of Present Illness Chief Complaint: Mental Health Informant: patient and spouse/S.O. Narrative Narrative: Presents here with significant other for evaluation after leaving another emergency department. She started her menstrual period 2 days ago increasing pelvic cramping. States unable to lay still. She was seen at another ED, reported blood work was drawn, stated she was diagnosed with a panic attack. She is given Benadryl and Ativan. She left due to not agreeing with the diagnosis. She reports she has had similar symptoms in the past that would help with hot showers. Discussion of recreational drug she admits to marijuana use however states has been more than 10 days since her last use. She reported imminent nausea and vomiting with her pain and cramping. I discussed the possibility of marijuana induced symptoms however patient still states she has not had similar symptoms in the past. However further discussion reports she has been treated with capsaicin cream in the past for which she did not like. She is diagnosed with endometriosis stating had a laparoscopy in the past along with PCOS. She is not on any medications for this. Denies alcohol history. Prior similar symptoms: Yes [facility] Medical History PTSD (post-traumatic stress disorder) Bipolar 1 disorder Anxiety Osteoarthritis of right knee Right knee pain Home Medications ???Medication ???Instructions ???Recorded ???Last Taken ???Type ondansetron 4 mg disintegrating 4 mg PO Q8H PRN PRN Nausea #10 tabs 07/15/24 Unknown Rx tablet Allergy/AdvReac Type Severity Reaction Status Date / Time trazodone Allergy Severe Anaphylaxis Verified 07/15/24 18:49 sulfamethoxazole (From Allergy Intermediate Rash Verified 07/15/24 18:49 Bactrim) trimethoprim (From Bactrim) Allergy Intermediate Rash Verified 07/15/24 18:49 aspirin Allergy Swelling Verified 07/15/24 18:49 peanut (peanuts) Allergy Other Verified 07/15/24 18:49 diazepam (From Valium) AdvReac Other Verified 07/15/24 18:49 Family History Mother Heart disease Father Seizures Surgical History H/O laparoscopy History of cholecystectomy Social History household members: spouse and family Smoking Status: Current every day smoker tobacco type: cigarettes and e-cigarettes alcohol intake: never ROS ROS ED Constitutional Constitutional ED: Denies chills, fever(s) or sweats Eyes Eyes: Denies change in vision ENT ENT ED: Denies dysphagia or sore throat Cardiovascular Cardiovascular: Denies chest pain, leg edema, palpitations or racing heartbeat Respiratory/Chest Respiratory/Chest: Denies cough, dyspnea or dyspnea on exertion Gastrointestinal Gastrointestinal: Reports abdominal pain, nausea and vomiting; Denies diarrhea Genitourinary Genitourinary ED: Denies dysuria, hematuria or urinary frequency Musculoskeletal Musculoskeletal: Denies back pain, extremity pain or neck pain Integumentary Denies rash or wounds Neurologic Neurologic: Denies headache(s), paresthesias or weakness EXAM Physical Exam Const Vital Signs: 07/15/24 18:49 Temperature 97.8 F Temperature Source Temporal Pulse Rate 98 Respiratory Rate 24 H Blood Pressure 149/116 H Blood Pressure Mean 127 Pulse Ox 100 Positive well nourished and well developed Constitutional Narrative: Nontoxic, rocking back and forth in bed. General Appearance ED: well developed HEENT Reports moist mucous membranes normocephalic and atraumatic Eyes EOMs intact bilaterally and conjunctivae normal General Eye ED: Yes normal appearance of both eyes Neck no lymphadenopathy and supple General: Negative for tenderness Chest Wall Chest: Negative for tenderness Resp normal respiratory effort and normal air movement Effort and Inspection: symmetric chest movement; Negative for respiratory distress Cardio regular rate, regular rhythm and no murmurs Peripheral Pulses: pulses 2+ throughout GI normal to inspection, nondistended, normoactive bowel sounds and non-tender GI Narrative: Soft abdomen exam with no guarding or rebound. Palpation: Negative for guarding or rebound tenderness present Back/Spine no CVA tenderness and no thoracic nor lumbar tenderness Extremity normal to inspection General Extremety ED: Negative for edema or (more content not included)... Normal [facility] LIPASEon 07-15-2024 Lipase [Catalytic activity/Vol] 38.0 U/L Normal 15.0 - 78.0 [facility] Comment on above: Result Comment: *PLE ASE NOTE THAT RANGES FOR LIPASE HAVE CHANGED OF 08/20/23 DUE TO AN ASSAY UPDATE BY THE REED POLISHER.THE NEW ASSAY RANGE IS 6-250 U/L, WITH A REFERENCE RANGE OF 16-77 U/L. Performed By: #### [id number] ####[facility],[address] [place] [id number] Lipaseon 07-15-2024 Lipase [Catalytic activity/Vol] 34 U/L Normal 13-75 [facility] Comment on above: Result Comment: Plea se note: LIPASE revised reference range effective 22. New Lipase methodology. Expected to produce lower values than the previous assay method. NEW Reference Range: 13 - 75 U/L Performed By: #### L 400.7600, L400.0001 #### [facility] [address] [place], [address] Liver Profileon 07-15-2024 Albumin [Mass/Vol] 3.8 g/dL Normal 3.2-5.0 [facility] Comment on above: Performed By: #### L 400.7600, L400.0001 #### [facility] [address] [place], [address] ALK P 79 U/L Normal 45-117 [facility] Comment on above: Performed By: #### L 400.7600, L400.0001 #### [facility] [address] [facility] [place], [address] ALT [Catalytic activity/Vol] 19 U/L Normal 13-56 [facility] Comment on above: Performed By: #### L 400.7600, L400.0001 #### [facility] [address] [place], [address] AST [Catalytic activity/Vol] 23 U/L Normal 15-37 [facility] Comment on above: Performed By: #### L 400.7600, L400.0001 #### [facility] [address] [place], [address] Bilirubin [Mass/Vol] 0.80 mg/dL Normal 0.20-1.00 [facility] Comment on above: Result Comment: For patients on eltrombopag therapy, use of Dimension [place] TBIL is not recommended. Performed By: #### L 400.7600, L400.0001 #### [facility] [address] [place], [address] Bilirubin.direct [Mass/Vol] 0.21 mg/dL Normal 0.00-0.30 [facility] Comment on above: Performed By: #### L 400.7600, L400.0001 #### [facility] [address] [place], [address] Globulin (S) [Mass/Vol] 3.9 g/dL Normal 2.2-4.2 [facility] Comment on above: Performed By: #### L 400.7600, L400.0001 #### [facility] [address] [place], [address] T PROT 7.7 g/dL Normal 6.4-8.2 [facility] Comment on above: Performed By: #### L 400.7600, L400.0001 #### [facility] [address] [place], [address] ,Serum,hCG Quali.on 07-15-2024 HCG, SERUM QUAL Negative Normal [facility] Comment on above: Performed By: #### L 400.7600, L400.0001 #### [facility] [address] [place], [address] Urine Drug Screen (VISTA)on 07-15-2024 AMPHETAMINES Negative Normal <1000 ng/mL [facility] Comment on above: Performed By: #### L 400.7600, L400.0001 #### [facility] [address] [place], [address] BARBITIURATES Negative Normal < 200 ng/mL [facility] Comment on above: Performed By: #### L 400.7600, L400.0001 #### [facility] [address] [place], [address] BENZODIAZIPINE Negative Normal < 200 ng/mL [facility] Comment on above: Performed By: #### L 400.7600, L400.0001 #### [facility] [address] [place], [address] COCAINE Negative Normal < 300 ng/mL [facility] Comment on above: Performed By: #### L 400.7600, L400.0001 #### [facility] [address] [place], [address] ECSTACY Negative Normal < 500 ng/mL [facility] Comment on above: Performed By: #### L 400.7600, L400.0001 #### [facility] [address] [place], [address] METHADONE Negative Normal < 300 ng/mL [facility] Comment on above: Performed By: #### L 400.7600, L400.0001 #### [facility] [address] [place], [address] OPIATES Negative Normal < 300 ng/mL [facility] Comment on above: Performed By: #### L 400.7600, [id number] #### [facility] [address] [place], [address] PCP Negative Normal < 25 ng/mL [facility] Comment on above: Performed By: #### L 400.7600, L400.0001 #### [facility] [address] [place], [address] THC Positive Abnormal < 50 ng/mL [facility] Comment on above: Performed By: #### L 400.7600, L400.0001 #### [facility] [address] [place], [address] VISTA UDS PH 5 Normal [facility] Comment on above: Performed By: #### L 400.7600, L400.0001 #### [facility] [address] [place], [place], [address] Urgent Care Visit Reporton 1 08-30-2023 Urgent Care Visit Report [facility] [address] [place], [place] [address] OFFICE VISIT Date of Service: 06/30/24 MR#: [id number] Acct: [id number] Name: CECILIA ABBASI Rep #: [id number] : 1990 Provider: JUNIOR Huntley Age/Sex: 34/F Location: [email or web address] Status: Signed Intake Vital Signs 05/19/24 23:27 Height 5 ft 9 in Intake Visit Reasons: PE NON DOT PHYSICAL/ ALTERCARE Allergies trazodone Allergy (Severe, Verified 05/19/24 23:27) Anaphylaxis sulfamethoxazole (From Bactrim) Allergy (Intermediate, Verified 05/19/24 23:27) Rash trimethoprim (From Bactrim) Allergy (Intermediate, Verified 05/19/24 23:27) Rash aspirin Allergy (Verified 05/19/24 23:27) Swelling peanut (peanuts) Allergy (Verified 05/19/24 23:27) Other diazepam (From Valium) Adverse Reaction (Verified 05/19/24 23:27) Other [facility] Medical History Osteoarthritis of right knee Right knee pain Surgical History H/O laparoscopy History of cholecystectomy Family History Mother Heart disease Father Seizures Social History household members: spouse and family Smoking Status: Current every day smoker tobacco type: cigarettes and e-cigarettes alcohol intake: never HPI HPI Details: CECILIA SENIOR, is a 34 F who presents to the office today for preemployment physical. Please see corresponding scanned documents with today's date. Office Procedures Physical Exam Coding PE Coding Pre-employment PE: Yes Coding Level of Care Code No Charge Diagnoses Encounter for pre-employment health screening examination Z02.1 Assessment and Plan Assessment and Plan (1) Encounter for pre-employment health screening examination: Status: Acute 06/30/24 1445 Date Mike Balderas Signature: Date (if applicable) CC: Normal [facility] Urine Cultureon 05-21-2024 URC Mixed Gram Pos Gram Neg Org [place] Count 25,000-50,000 MIXC Mixed contaminants. Submit a new specimen if indicated. Normal [facility] Comment on above: Performed By: #### L 400.7600, [id number] #### [facility] [address] [place], [address] CBC W/Diff, Automatedon 04-24 Absolute Lymph 4.25 X10 3/uL Normal 0.83-4.51 [facility] Comment on above: Performed By: #### L 400.7600, L400.0001 #### [facility] [address] [place], [address] Absolute Neut 6.9 X10 3/uL Normal 2.0-7.7 [facility] Comment on above: Performed By: #### L 400.7600, [id number] #### [facility] [address] [place], [address] Basophils/100 WBC (Bld) 0.2 % Normal 0-1 [facility] Comment on above: Performed By: #### L 400.7600, L400.0001 #### [facility] [address] [place], [address] Eosinophils/100 WBC (Bld) 1.6 % Normal 0-5 [facility] Comment on above: Performed By: #### L 400.7600, [id number] #### [facility] [address] [place], [address] Erythrocyte distribution width (RBC) [Ratio] 15.6 % High 11.6-14.6 [facility] Comment on above: Performed By: #### L 400.7600, L400.0001 #### [facility] [address] [place], [address] Hematocrit (Bld) [Volume fraction] 36.6 % Low 37-47 [facility] Comment on above: Performed By: #### L 400.7600, [id number] #### [facility] [address] [place], [address] Hemoglobin (Bld) [Mass/Vol] 11.9 g/dL Low 12.0-15.0 [facility] Comment on above: Performed By: #### L 400.7600, [id number] #### [facility] [address] [place], [address] IG% 0.300 Normal 0.0-0.9 [facility] Comment on above: Result Comment: IG% - Immature Granulocytes (promyelocytes, myelocytes and metamyelocytes) > 1% indicates that a LEFT SHIFT is Present. Performed By: #### L 400.7600, [id number] #### [place] [facility] [address] [place], [address] Lymphocytes/100 WBC (Bld) 34.9 % Normal 19-41 [facility] Comment on above: Performed By: #### L 400.7600, L400.0001 #### [facility] [address] [place], [address] MCH (RBC) [Entitic mass] 28.5 pg Normal 27.0-32.0 [facility] Comment on above: Performed By: #### L 400.7600, L400.0001 #### [facility] [address] [place], [address] MCHC (RBC) [Mass/Vol] 32.5 g/dL Normal 32-36 [facility] Comment on above: Performed By: #### L 400.7600, L400.0001 #### [facility] [address] [place], [address] MCV (RBC) [Entitic vol] 87.8 fL Normal 81-99 [facility] Comment on above: Performed By: #### L 400.7600, L400.0001 #### [facility] [address] [place], [address] Monocytes/100 WBC (Bld) 6.5 % Normal 0-10 [facility] Comment on above: Performed By: #### L 400.7600, L400.0001 #### [facility] [address] [place], [address] Neutrophils/100 WBC (Bld) 56.5 % Normal 47-70 [facility] Comment on above: Performed By: #### L 400.7600, L400.0001 #### [facility] [address] [place], [address] Nucleated RBC (Bld) [#/Vol] 0 10*3/uL Normal 0-5 [facility] Comment on above: Performed By: #### L 400.7600, L400.0001 #### [facility] [address] [place], [address] Platelet mean volume (Bld) [Entitic vol] 10.1 fL Normal 6.2-12.0 [facility] Comment on above: Performed By: #### L 400.7600, L400.0001 #### [facility] [address] [place], [address] Platelets (Bld) [#/Vol] 283 10*3/uL Normal 150-450 [facility] Comment on above: Performed By: #### L 400.7600, L400.0001 #### [facility] [address] [place], [address] RBC (Bld) [#/Vol] 4.17 10*6/uL Low 4.2-5.4 [facility] Comment on above: Performed By: #### L 400.7600, L400.0001 #### [facility] [address] [place], [address] RDW SD 49.0 fl High 35.1-43.9 [facility] Comment on above: Performed By: #### L 400.7600, L400.0001 #### [facility] [address] [place], [address] WBC (Bld) [#/Vol] 12.2 10*3/uL High 4.4-11.0 [facility] Comment on above: Performed By: #### L 400.7600, L400.0001 #### [facility] [address] [place], [address] Comprehensive Metabolic Prof ilon 05-20-2024 Albumin [Mass/Vol] 3.1 g/dL Low 3.2-5.0 [facility] Comment on above: Performed By: #### L 400.7600, L400.0001 #### [facility] [address] [place], [address] Albumin/Globulin [Mass ratio] 0.8 {ratio} Low 0.9-2.4 [facility] Comment on above: Performed By: #### L 400.7600, L400.0001 #### [facility] [address] [place], [address] ALK P 74 U/L Normal 45-117 [facility] Comment on above: Performed By: #### L 400.7600, L400.0001 #### [facility] [address] [place], [address] ALT [Catalytic activity/Vol] 31 U/L Normal 13-56 [facility] Comment on above: Performed By: #### L 400.7600, L400.0001 #### [facility] [address] [place], [address] AST [Catalytic activity/Vol] 17 U/L Normal 15-37 [facility] Comment on above: Performed By: #### L 400.7600, L400.0001 #### [facility] [address] [place], [address] Bilirubin [Mass/Vol] 0.20 mg/dL Normal 0.20-1.00 [facility] Comment on above: Result Comment: For patients on eltrombopag therapy, use of Dimension [place] TBIL is not recommended. Performed By: #### L 400.7600, L400.0001 #### [facility] [address] [place], [address] BUN/CRE 17.2 RATIO Normal 10-20 [facility] Comment on above: Performed By: #### L 400.7600, L400.0001 #### [facility] [address] [place], [address] CA,Total 9.0 mg/dL Normal 8.5-10.1 [facility] Comment on above: Performed By: #### L 400.7600, L400.0001 #### [facility] [address] [place], [address] Chloride [Moles/Vol] 105 mmol/L Normal 98-107 [facility] Comment on above: Performed By: #### L 400.7600, L400.0001 #### [facility] [address] [place], [address] CO2 [Moles/Vol] 30.0 mmol/L Normal 21.0-32.0 [facility] Comment on above: Performed By: #### L 400.7600, L400.0001 #### [facility] [address] [place], [address] Creatinine [Mass/Vol] 0.58 mg/dL Normal 0.55-1.02 [facility] Comment on above: Result Comment: The validity of the calculated GFR GFRAA in patients over 70 years has not been determined. Clinical correlation is essential. Performed By: #### L 400.7600, L400.0001 #### [facility] [address] [place], [address] ECRCL 212.13 ml/min Normal [facility] Comment on above: Performed By: #### L 400.7600, L400.0001 #### [facility] [address] [place], [address] EST GFR - AA 151 mL/min Normal >60 [facility] Comment on above: Result Comment: Afri can [place] GFR Calc Performed By: #### L 400.7600, L400.0001 #### [facility] [address] [place], [address] GAP 5 Normal 5-15 [facility] Comment on above: Performed By: #### L 400.7600, L400.0001 #### [facility] [address] [place], [address] GFR/1.73 sq M.predicted among non-blacks MDRD (S/P/Bld) [Vol rate/Area] 125 mL/min/{1.73_m2} Normal >60 [facility] Comment on above: Result Comment: Non- GFR Calc Performed By: #### L 400.7600, L400.0001 #### [facility] [address] [place], [address] Globulin (S) [Mass/Vol] 3.7 g/dL Normal 2.2-4.2 [facility] Comment on above: Performed By: #### L 400.7600, L400.0001 #### [facility] [address] [place], [address] Glucose [Mass/Vol] 116 mg/dL High 74-106 [facility] Comment on above: Result Comment: Fast ing Glucose result from 100 to 125 mg/dL suggests IMPAIRED HOMEOSTASIS per A.D.A. criteria. Performed By: #### L 400.7600, L400.0001 #### [facility] [address] [place], [address] Potassium [Moles/Vol] 3.4 mmol/L Low 3.5-5.1 [facility] Comment on above: Performed By: #### L 400.7600, L400.0001 #### [facility] [address] [place], [address] Sodium [Moles/Vol] 140 mmol/L Normal 136-145 [facility] Comment on above: Performed By: #### L 400.7600, L400.0001 #### [facility] [address] [place], [address] T PROT 6.8 g/dL Normal 6.4-8.2 [facility] Comment on above: Performed By: #### L 400.7600, L400.0001 #### [facility] [address] [place], [address] Urea nitrogen [Mass/Vol] 10 mg/dL Normal 7-18 [facility] Comment on above: Performed By: #### L 400.7600, L400.0001 #### [facility] [address] [place], [address] Emergency Department Summary on 05-20-2024 Emergency Department Summary [facility] Medical Records Department [address] [place] [address] Emergency Department Summary 05/20/24 MR#: [id number] Acct: [id number] Name: CECILIA ABBASI Rep #: [id number] : 1990 34 From: Martín Hare DO PCP: DI Smith Status:REG ER Location: ED HPI History of Present Illness Chief Complaint: Complaint Narrative Narrative: Patient is a 34-year-old female with no known significant past medical history who presents to the emergency department the chief complaint of urinary tract infection. Patient states that she was recently seen in the adult pulmonary and was diagnosed with a urinary tract infection was given a prescription for Bactrim however states that she has an allergy to Bactrim therefore should not start taking this. She returned to the OR and had further workup repeated i as well as a CT abdomen pelvis and was diagnosed with a urinary tract infection again and was given Keflex. States that she has been taking this medicine and states that she is still having painful urination, nausea vomiting and not feeling well which prompted her to come here for further evaluation management. [facility] Medical History Osteoarthritis of right knee Right knee pain Home Medications ???Medication ???Instructions ???Recorded ???Last Taken ???Type cephalexin 500 mg capsule 500 mg PO BID 05/20/24 Unknown History ciprofloxacin HCl 500 mg tablet 500 mg PO Q12H 5 days #10 tabs 05/20/24 Unknown Rx ondansetron 4 mg disintegrating 4 mg PO Q8H PRN PRN nausea/vomiting 05/20/24 Unknown History tablet tramadol 50 mg tablet 50 mg PO Q6H PRN moderate pain 05/20/24 Unknown History Allergy/AdvReac Type Severity Reaction Status Date / Time trazodone Allergy Severe Anaphylaxis Verified 05/19/24 23:27 sulfamethoxazole (From Allergy Intermediate Rash Verified 05/19/24 23:27 Bactrim) trimethoprim (From Bactrim) Allergy Intermediate Rash Verified 05/19/24 23:27 aspirin Allergy Swelling Verified 05/19/24 23:27 peanut (peanuts) Allergy Other Verified 05/19/24 23:27 diazepam (From Valium) AdvReac Other Verified 05/19/24 23:27 Family History Mother Heart disease Father Seizures Surgical History H/O laparoscopy History of cholecystectomy Social History household members: spouse and family Smoking Status: Current every day smoker tobacco type: cigarettes and e-cigarettes alcohol intake: never ROS ROS ED ROS Narrative Constitutional: Denies any fevers, chills, has, lightness, dizziness Abdomen: Complains of lower abdominal pain as well as nausea vomiting denies any diarrhea : Complains of painful urination denies any hematuria Neurological: Denies numbness, weakness, tingling Musculoskeletal: Denies back pain Skin: Denies rashes or lesions EXAM Physical Exam Narrative Exam Narrative: General: Patient was lying in bed rest comfortably did not appear to be in acute distress Head: Atraumatic, normocephalic Eyes: PERRL bilateral, EOMI bilateral, no conjunctival injection noted Neck: Soft, supple, trachea midline Cardiovascular: Regular rate and rhythm no murmurs gallops rubs noted Respiratory: Clear to auscultation bilaterally no rales rhonchi or wheezes noted Abdomen: Soft, nondistended, suprapubic tenderness palpation no rebound or guarding on exam, bowel sounds present x 4 Musculoskeletal: No CVA tenderness on exam Extremities: +5/5 strength noted in the bilateral upper and lower extremities, no pedal edema neuroexam, radial pulses +2/4 in the bilateral upper extremities Neurological: Patient was following commands knew that she was at [facility] there is 2023 Skin: Warm, dry, intact Const Vital Signs: 05/19/24 23:27 05/19/24 23:30 05/20/24 00:30 Temperature 98.2 F 98 F 98.4 F Temperature Source Oral Oral Oral Pulse Rate 92 77 88 Respiratory Rate 24 H 18 16 Blood Pressure 162/102 H 122/72 H 125/66 H Blood Pressure Mean 122 88 85 Pulse Ox 98 95 99 Oxygen Delivery Method Room Air Room Air Room Air 05/20/24 01:30 05/20/24 02:00 Temperature 98.2 F 98.1 F Temperature Source Oral Oral Pulse Rate 67 68 Respiratory Rate 16 16 Blood Pressure 128/79 H 125/86 H Blood Pressure Mean 95 99 Pulse Ox 98 99 Oxygen Delivery Method Room Air Room Air MDM MDM MDM Narrative Medical decision making narrative: Patient is a 34-year-old female who presents to the emergency department with a chief complaint of lower abdominal pain nausea vomiting and urinary symptoms. Patient will have a workup performed here on the diff (more content not included)... [facility] ,Serum,hCG Quali.on 05-20-2024 HCG, SERUM QUAL Negative [facility] Comment on above: Performed By: #### L 400.7600, L400.0001 #### [facility] [address] [place], [place], [address] ,Urineon 05-20-2024 Beta HCG ( test) Ql (U) [facility] Comment on above: Order Comment: If fe male of childbearing age (8-55 years old)CLEAN CATCH Result Comment: DUPL ICATE, WANTED SERUM PREG Performed By: #### L 400.7600, L400.0001 #### [facility] [address] [place], [address] INTERNAL QC OK? [facility] Comment on above: Order Comment: If fe male of childbearing age (8-55 years old)CLEAN CATCH Result Comment: DUPL ICATE, WANTED SERUM PREG Performed By: #### L 400.7600, L400.0001 #### [facility] [address] [place], [address] RECORD KIT LOT# [facility] Comment on above: Order Comment: If fe male of childbearing age (8-55 years old)CLEAN CATCH Result Comment: DUPL ICATE, WANTED SERUM PREG Performed By: #### L 400.7600, L400.0001 #### [facility] [address] [place], [address] Urinalysis, Completeon 05-20 AMORPHOUS 2+ Normal [facility] Comment on above: Order Comment: RENEE CTOR TO SPECIFY Performed By: #### L 400.7600, L400.0001 #### [facility] [address] [place], [address] CA OX CRYSTAL 1+ /hpf Normal [facility] Comment on above: Order Comment: RENEE CTOR TO SPECIFY Performed By: #### L 400.7600, L400.0001 #### [facility] [address] [place], [address] BACTERIA 1+ /hpf Normal None Seen [facility] Comment on above: Order Comment: RENEE CTOR TO SPECIFY Performed By: #### L 400.7600, L400.0001 #### [facility] [address] [place], [address] EPI,SQUAMOUS 0-5 SEEN Normal 5-10 [facility] Comment on above: Order Comment: RENEE CTOR TO SPECIFY Performed By: #### L 400.7600, L400.0001 #### [facility] [address] [place], [address] RBC 0-5 SEEN Normal 0-5 [facility] Comment on above: Order Comment: RENEE CTOR TO SPECIFY Performed By: #### L 400.7600, L400.0001 #### [facility] [address] [place], [address] Mucus Ql (Urine sed) 0 SEEN Normal [facility] Comment on above: Order Comment: RENEE CTOR TO SPECIFY Performed By: #### L 400.7600, L400.0001 #### [facility] [address] [place], [address] WBC 0 SEEN Normal 0-5 [facility] Comment on above: Order Comment: COLLE CTOR TO SPECIFY Performed By: #### L 400.7600, L400.0001 #### [facility] [address] [place], [address] BACTERIA Normal None Seen [facility] Comment on above: Order Comment: If fe male of childbearing age (8-55 years old)CLEAN CATCH Result Comment: DUPL ICATE, WANTED SERUM PREG Performed By: #### L 400.7600, L400.0001 #### [facility] [address] [place], [address] BILIRUBIN URINE Normal Negative [facility] Comment on above: Order Comment: If fe male of childbearing age (8-55 years old)CLEAN CATCH Result Comment: DUPL ICATE, WANTED SERUM PREG Performed By: #### L 400.7600, L400.0001 #### [facility] [address] [place], [address] Clarity (U) Normal Clear [facility] Comment on above: Order Comment: If fe male of childbearing age (8-55 years old)CLEAN CATCH Result Comment: DUPL ICATE, WANTED SERUM PREG Performed By: #### L 400.7600, L400.0001 #### [facility] [address] [place], [address] Color (U) Normal Yellow [facility] Comment on above: Order Comment: If fe male of childbearing age (8-55 years old)CLEAN CATCH Result Comment: DUPL ICATE, WANTED SERUM PREG Performed By: #### L 400.7600, L400.0001 #### [facility] [address] [place], [address] EPI,SQUAMOUS Normal 5-10 [facility] Comment on above: Order Comment: If fe male of childbearing age (8-55 years old)CLEAN CATCH Result Comment: DUPL ICATE, WANTED SERUM PREG Performed By: #### L 400.7600, L400.0001 #### [facility] [address] [place], [address] GLUCOSE, UR Normal Normal [facility] Comment on above: Order Comment: If fe male of childbearing age (8-55 years old)CLEAN CATCH Result Comment: DUPL ICATE, WANTED SERUM PREG Performed By: #### L 400.7600, L400.0001 #### [facility] [address] [place], [address] KETONE UR Normal Negative [facility] Comment on above: Order Comment: If fe male of childbearing age (8-55 years old)CLEAN CATCH Result Comment: DUPL ICATE, WANTED SERUM PREG Performed By: #### L 400.7600, L400.0001 #### [facility] [address] [place], [address] LEUK ESTERASE Normal Negative [facility] Comment on above: Order Comment: If fe male of childbearing age (8-55 years old)CLEAN CATCH Result Comment: DUPL ICATE, WANTED SERUM PREG Performed By: #### L 400.7600, L400.0001 #### [facility] [address] [place], [address] Mucus Ql (Urine sed) Normal [facility] Comment on above: Order Comment: If fe male of childbearing age (8-55 years old)CLEAN CATCH Result Comment: DUPL ICATE, WANTED SERUM PREG Performed By: #### L 400.7600, L400.0001 #### [facility] [address] [place], [address] Nitrite Ql (U) Normal Negative [facility] Comment on above: Order Comment: If fe male of childbearing age (8-55 years old)CLEAN CATCH Result Comment: DUPL ICATE, WANTED SERUM PREG Performed By: #### L 400.7600, L400.0001 #### [facility] [address] [place], [address] OCCULT BLOOD-UR Normal Negative [facility] Comment on above: Order Comment: If fe male of childbearing age (8-55 years old)CLEAN CATCH Result Comment: DUPL ICATE, WANTED SERUM PREG Performed By: #### L 400.7600, L400.0001 #### [facility] [address] [place], [address] pH UR Normal 5.0 - 8.0 [facility] Comment on above: Order Comment: If fe male of childbearing age (8-55 years old)CLEAN CATCH Result Comment: DUPL ICATE, WANTED SERUM PREG Performed By: #### L 400.7600, L400.0001 #### [facility] [address] [place], [address] PROT DIPSTX Normal Negative [facility] Comment on above: Order Comment: If fe male of childbearing age (8-55 years old)CLEAN CATCH Result Comment: DUPL ICATE, WANTED SERUM PREG Performed By: #### L 400.7600, L400.0001 #### [facility] [address] [place], [address] RBC Normal 0-5 [facility] Comment on above: Order Comment: If fe male of childbearing age (8-55 years old)CLEAN CATCH Result Comment: DUPL ICATE, WANTED SERUM PREG Performed By: #### L 400.7600, L400.0001 #### [facility] [address] [place], [address] SP.GR. DIPSTX Normal 1.002-1.030 [facility] Comment on above: Order Comment: If fe male of childbearing age (8-55 years old)CLEAN CATCH Result Comment: DUPL ICATE, WANTED SERUM PREG Performed By: #### L 400.7600, L400.0001 #### [facility] [address] [place], [address] UR Preservative Normal [facility] Comment on above: Order Comment: If fe male of childbearing age (8-55 years old)CLEAN CATCH Result Comment: DUPL ICATE, WANTED SERUM PREG Performed By: #### L 400.7600, L400.0001 #### [facility] [address] [place], [address] UROBILI Normal Normal [facility] Comment on above: Order Comment: If fe male of childbearing age (8-55 years old)CLEAN CATCH Result Comment: DUPL ICATE, WANTED SERUM PREG Performed By: #### L 400.7600, L400.0001 #### [facility] [address] [place], [address] WBC Normal 0-5 [facility] Comment on above: Order Comment: If fe male of childbearing age (8-55 years old)CLEAN CATCH Result Comment: DUPL ICATE, WANTED SERUM PREG Performed By: #### L 400.7600, L400.0001 #### [facility] [address] [place], [address] URINE CULTURE [CCL]on 2023 Bacteria identified Cx Nom (U) URCUL See Results Below See Below CULTURE, URINE MIXED MICROBIOTA 10,000 -<50,000 CFU/ml Mixed microbiota No further workup. Mixed microbiota can be due to???urine???contami nation with s SOURCE: Urine (Nonspecific) [facility] [address] [place] [address] Donald Chase III, M.D. [id number] SEND TO IC NO Normal [facility] Comment on above: Performed By: #### 2 [id number] ####[facility],[address] [place] [address] C-REACTIVE PROTEINon 024 CRP 1.93 mg/dl High 0.00 - 0.90 [facility] Comment on above: Performed By: #### 2 [id number] #### [facility],[address] [place] [address] CBC + DIFFon 05-14-2024 Baso # 0.05 x10EE3/UL Normal 0.00 - 0.10 [facility] Comment on above: Performed By: #### 2 59206 #### [facility],[address] [place], [place] [address] Basophils/100 WBC (Bld) 0.4 % Normal 0.0 - 2.0 [facility] Comment on above: Performed By: #### 2 [id number] #### [facility],[address] [place] [address] CBC + DIFF Normal [facility] Comment on above: Result Comment: CBC- COMPLETE BLOOD COUNT Performed By: #### 2 [id number] #### [facility],[address] [place] [address] EO # 0.14 x10EE3/UL Normal 0.00 - 0.50 [facility] Comment on above: Performed By: #### 2 [id number] #### [facility],[address] [place] [address] Eosinophils/100 WBC (Bld) 1.1 % Normal 0.0 - 7.0 [facility] Comment on above: Performed By: #### 2 [id number] #### [facility],[address] [place] [address] Erythrocyte distribution width (RBC) [Ratio] 15.1 % Normal 12.0 - 15.6 [facility] Comment on above: Performed By: #### 2 79214 #### [facility],[address] [place] [address] Hematocrit (Bld) [Volume fraction] 39.5 % Normal 34.0 - 46.0 [facility] Comment on above: Performed By: #### 2 77184 #### [facility] [facility],[address] [place] [address] Hemoglobin (Bld) [Mass/Vol] 13.7 g/dL Normal 12.0 - 16.0 [facility] Comment on above: Performed By: #### 2 79526 #### [facility],[address] [place], [place] [id number] Lymph # 2.60 x10EE3/UL Normal 0.80 - 2.80 [facility] Comment on above: Performed By: #### 2 26767 #### [facility],[address] [place] [address] Lymphocytes/100 WBC (Bld) 21.5 % Normal 20.0 - 45.0 [facility] Comment on above: Performed By: #### 2 34920 #### [facility],[address] [place] [address] MANUAL DIFF N/A Normal [facility] Comment on above: Performed By: #### 2 52445 #### [facility],[address] [place] [address] MCH (RBC) [Entitic mass] 30 pg Normal 27 - 33 [facility] Comment on above: Performed By: #### 2 85623 #### [facility],[address] [place] [address] MCHC 35 X10 3 Normal 32 - 36 [facility] Comment on above: Performed By: #### 2 16677 #### [facility],[address] [place] [address] 90515 MCV (RBC) [Entitic vol] 85 fL Normal 80 - 99 [facility] Comment on above: Performed By: #### 2 82003 #### [facility],[address] [place] [address] 57295 [place] # 0.71 x10EE3/UL Normal 0.20 - 1.00 [facility] Comment on above: Performed By: #### 2 85421 #### [facility],[address] [place] [address] 60044 MONOS % 5.8 % Normal 0.0 - 10.0 [facility] Comment on above: Performed By: #### 2 91310 #### [facility],[address] [place] [address] 32531 Morphology Usman (Bld) [Interp] N/A Normal [facility] Comment on above: Performed By: #### 2 82860 #### [facility],[address] [place] [address] 24457 Neut # 8.62 x10EE3/UL High 1.50 - 7.10 [facility] Comment on above: Performed By: #### 2 00283 #### [facility],[address] [place] [address] 64993 Neutrophils/100 WBC (Bld) 71.2 % Normal 46.0 - 76.0 [facility] Comment on above: Performed By: #### 2 04002 #### [facility],[address] [place] [address] 39873 PLATELET 348 x10EE3/UL Normal 150 - 450 [facility] Comment on above: Performed By: #### 2 96151 #### [facility],[address] [place] [address] 79505 Platelet mean volume (Bld) [Entitic vol] 7.7 fL Normal 6.6 - 10.5 [facility] Comment on above: Result Comment: AUTO MATED DIFFERENTIAL Performed By: #### 2 16527 #### [facility],[address] [place] [address] 71302 RBC 4.64 x 10EE6/UL Normal 4.10 - 5.30 [facility] Comment on above: Performed By: #### 2 11784 #### [facility],[address] [place] [address] 17814 WBC 12.1 x 10EE3/UL High 4.5 - 10.8 [facility] Comment on above: Performed By: #### 2 17020 #### [facility],[address] [place] [address] 78260 CMP with eGFRon 05-14-2024 AGE 34 years Normal [facility] Comment on above: Performed By: #### 2 78255 #### [facility],[address] [place] [address] 86623 Albumin [Mass/Vol] 3.3 g/dL Low 3.4 - 5.0 [facility] Comment on above: Performed By: #### 2 30643 #### [facility],[address] [place] [address] 40943 Albumin/Globulin [Mass ratio] 0.7 {ratio} Low 0.9 - 1.6 [facility] Comment on above: Performed By: #### 2 75736 #### [facility],[address] [place] [address] 18901 ALK PHOS 86 U/L Normal 46 - 116 [facility] Comment on above: Performed By: #### 2 23157 #### [facility],[address] [place] [address] 80413 ALT [Catalytic activity/Vol] 18 U/L Normal 16 - 63 [facility] Comment on above: Performed By: #### 2 51823 #### [facility],[address] [place] [address] 96499 Anion gap [Moles/Vol] 17 mmol/L Normal 10 - 20 [facility] Comment on above: Performed By: #### 2 75016 #### [facility],[address] [place] [address] 61391 AST [Catalytic activity/Vol] 17 U/L Normal 13 - 39 [facility] Comment on above: Performed By: #### 2 09382 #### [facility],[address] [place] [address] 81279 B/C RATIO 8 ratio Normal 0 - 30 [facility] Comment on above: Performed By: #### 2 26088 #### [facility],[address] [place] [address] 31370 Bilirubin [Mass/Vol] 0.6 mg/dL Normal 0.2 - 1.0 [facility] Comment on above: Performed By: #### 2 93456 #### [facility],[address] [place] [address] 45710 Calcium [Mass/Vol] 9.1 mg/dL Normal 8.5 - 10.1 [facility] Comment on above: Performed By: #### 2 31146 #### [facility],[address] [place] [address] 01555 Chloride [Moles/Vol] 103 mmol/L Normal 98 - 107 [facility] Comment on above: Performed By: #### 2 09044 #### [facility],[address] [place] [address] 41143 CMP with eGFR Normal [facility] Comment on above: Result Comment: COMP REHENSIVE METABOLIC PANEL Performed By: #### 2 36834 #### [facility],[address] [place] [address] 36523 CO2 [Moles/Vol] 22.2 mmol/L Normal 21.0 - 32.0 [facility] Comment on above: Performed By: #### 2 41448 #### [facility],[address] [place] [address] 52062 Creatinine [Mass/Vol] 0.78 mg/dL Normal 0.55 - 1.02 [facility] Comment on above: Performed By: #### 2 56117 #### [facility],[address] [place] [address] 40602 GFR/1.73 sq M.predicted among non-blacks MDRD (S/P/Bld) [Vol rate/Area] mL/min/{1.73_m2} Normal 60 - 999 [facility] Comment on above: Performed By: #### 2 47918 #### [facility],[address] [place] [address] 74524 Result Comment: ACCO RDING TO THE NATIONAL KIDNEY DISEASE EDUCATION PROGRAM(NKDE), A NORMAL eGFR IS A VALUE GREATER THAN OR EQUAL TO 60 ML/MIN/1.73 SQ METERS. CHRONIC KIDNEY DISEASE: <60mL/MIN/1.73 SQ METERS KIDNEY FAILURE: <15mL/MIN/1.73 SQ METERS THIS TEST SHOULD ONLY BE USED FOR PATIENTS 18 YEARS OF AGE AND OLDER. Globulin (S) [Mass/Vol] 4.7 g/dL High 1.5 - 3.8 [facility] Comment on above: Performed By: #### 2 71086 #### [address] [address] Glucose [Mass/Vol] 152 mg/dL High 74 - 106 [facility] Comment on above: Performed By: #### 2 86205 #### [address] [address] Potassium [Moles/Vol] 3.5 mmol/L Normal 3.5 - 5.1 [facility] Comment on above: Performed By: #### 2 35033 #### [address] [address] Protein [Mass/Vol] 8.0 g/dL Normal 6.4 - 8.2 [facility] Comment on above: Performed By: #### 2 05217 #### [address] [address] Sodium [Moles/Vol] 139 mmol/L Normal 136 - 145 [facility] Comment on above: Performed By: #### 2 79201 #### [address] [address] Urea nitrogen [Mass/Vol] 6 mg/dL Low 7 - 18 [facility] Comment on above: Performed By: #### 2 15191 #### [address] [address] LIPASEon 05-14-2024 Lipase [Catalytic activity/Vol] 101.0 U/L High 15.0 - 78.0 [facility] Comment on above: Result Comment: *PLE ASE NOTE THAT RANGES FOR LIPASE HAVE CHANGED OF 08/20/23 DUE TO AN ASSAY UPDATE BY THE [employer] POLISHER.THE NEW ASSAY RANGE IS 6-250 U/L, WITH A REFERENCE RANGE OF 16-77 U/L. Performed By: #### 2 57632 ####[facility],[address] [place] [address] 39548 C-REACTIVE PROTEINon 024 CRP 1.52 mg/dl High 0.00 - 0.90 [facility] Comment on above: Performed By: #### 2 04320 ####[facility],[address] [place] [address] 28501 CBC + DIFFon 05-13-2024 Baso # 0.03 x10EE3/UL Normal 0.00 - 0.10 [facility] Comment on above: Performed By: #### 2 33194 #### [address] [address] Basophils/100 WBC (Bld) 0.2 % Normal 0.0 - 2.0 [facility] Comment on above: Performed By: #### 2 38621 #### [facility],[address] [place] [address] 23252 CBC + DIFF Normal [facility] Comment on above: Result Comment: CBC- COMPLETE BLOOD COUNT Performed By: #### 2 91848 #### [facility],[address] [place] [address] 49655 EO # 0.11 x10EE3/UL Normal 0.00 - 0.50 [facility] Comment on above: Performed By: #### 2 27211 #### [facility],[address] [place] [address] 41319 Eosinophils/100 WBC (Bld) 0.8 % Normal 0.0 - 7.0 [facility] Comment on above: Performed By: #### 2 84243 #### [facility],[address] [place] [address] 85560 Erythrocyte distribution width (RBC) [Ratio] 15.0 % Normal 12.0 - 15.6 [facility] Comment on above: Performed By: #### 2 15797 #### [facility],[address] [place], [place] [address] Hematocrit (Bld) [Volume fraction] 40.9 % Normal 34.0 - 46.0 [facility] Comment on above: Performed By: #### 2 23278 #### [facility],[address] [place] [address] Hemoglobin (Bld) [Mass/Vol] 14.1 g/dL Normal 12.0 - 16.0 [facility] Comment on above: Performed By: #### 2 32808 #### [facility],[address] [place] [address] Lymph # 2.42 x10EE3/UL Normal 0.80 - 2.80 [facility] Comment on above: Performed By: #### 2 09437 #### [facility],[address] [place] [address] Lymphocytes/100 WBC (Bld) 18.5 % Low 20.0 - 45.0 [facility] Comment on above: Performed By: #### 2 10077 #### [facility],[address] [place] [address] MANUAL DIFF N/A Normal [facility] Comment on above: Performed By: #### 2 63676 #### [facility],[address] [place], [place] [phone] MCH (RBC) [Entitic mass] 29 pg Normal 27 - 33 [facility] Comment on above: Performed By: #### 2 72284 #### [facility],[address] [place], [place] [address] MCHC 34 X10 3 Normal 32 - 36 [facility] Comment on above: Performed By: #### 2 18985 #### [facility],[address] [place] [address] 23075 MCV (RBC) [Entitic vol] 85 fL Normal 80 - 99 [facility] Comment on above: Performed By: #### 2 84675 #### [facility],[address] [place] [address] 78134 [place] # 0.59 x10EE3/UL Normal 0.20 - 1.00 [facility] Comment on above: Performed By: #### 2 51379 #### [facility],[address] [place] [address] 46644 MONOS % 4.5 % Normal 0.0 - 10.0 [facility] Comment on above: Performed By: #### 2 42423 #### [facility],[address] [place] [address] 91194 Morphology Usman (Bld) [Interp] N/A Normal [facility] Comment on above: Performed By: #### 2 05015 #### [facility],[address] [place] [address] 05372 Neut # 9.97 x10EE3/UL High 1.50 - 7.10 [facility] Comment on above: Performed By: #### 2 27587 #### [facility],[address] [place] [address] 50219 Neutrophils/100 WBC (Bld) 76.0 % Normal 46.0 - 76.0 [facility] Comment on above: Performed By: #### 2 45587 #### [facility],[address] [place] [address] 80895 PLATELET 307 x10EE3/UL Normal 150 - 450 [facility] Comment on above: Performed By: #### 2 62874 #### [facility],[address] [place] [address] 68610 Platelet mean volume (Bld) [Entitic vol] 7.9 fL Normal 6.6 - 10.5 [facility] Comment on above: Result Comment: AUTO MATED DIFFERENTIAL Performed By: #### 2 70647 #### [facility],[address] [place] [address] 56014 RBC 4.79 x 10EE6/UL Normal 4.10 - 5.30 [facility] Comment on above: Performed By: #### 2 24718 #### [facility],[address] [place] [address] 92874 WBC 13.1 x 10EE3/UL High 4.5 - 10.8 [facility] Comment on above: Performed By: #### 2 44312 #### [facility],[address] [place], [place] [phone] CMP with eGFRon 05-13-2024 AGE 34 years Normal [facility] Comment on above: Performed By: #### 2 31384 ####[facility],[address] [place] [address] 59967 Albumin [Mass/Vol] 3.3 g/dL Low 3.4 - 5.0 [facility] Comment on above: Performed By: #### 2 89994 ####[facility],[address] [place] [address] Albumin/Globulin [Mass ratio] 0.7 {ratio} Low 0.9 - 1.6 [facility] Comment on above: Performed By: #### 2 85754 ####[facility],[address] [place] [address] 67788 ALK PHOS 89 U/L Normal 46 - 116 [facility] Comment on above: Performed By: #### 2 09412 ####[facility],[address] [place], [place] [phone] ALT [Catalytic activity/Vol] 18 U/L Normal 16 - 63 [facility] Comment on above: Performed By: #### 2 14582 ####[facility],[address] [place] [address] 04747 Anion gap [Moles/Vol] 21 mmol/L High 10 - 20 [facility] Comment on above: Performed By: #### 2 71183 ####[facility],[address] [place] [address] 77300 AST [Catalytic activity/Vol] 19 U/L Normal 13 - 39 [facility] Comment on above: Performed By: #### 2 29998 ####[facility],[address] [place] [address] 57828 B/C RATIO 10 ratio Normal 0 - 30 [facility] Comment on above: Performed By: #### 2 64117 ####[facility],[address] [place] [address] 24098 Bilirubin [Mass/Vol] 0.5 mg/dL Normal 0.2 - 1.0 [facility] Comment on above: Performed By: #### 2 73888 ####[facility],[address] [place] [address] 48772 Calcium [Mass/Vol] 9.1 mg/dL Normal 8.5 - 10.1 [facility] Comment on above: Performed By: #### 2 72765 ####[facility],[address] [place] [address] 80789 Chloride [Moles/Vol] 103 mmol/L Normal 98 - 107 [facility] Comment on above: Performed By: #### 2 64305 ####[facility],[address] [place], [place] [phone] CMP with eGFR Normal [facility] Comment on above: Result Comment: COMP REHENSIVE METABOLIC PANEL Performed By: #### 2 36851 ####[facility],[address] [place] [address] 10317 CO2 [Moles/Vol] 20.8 mmol/L Low 21.0 - 32.0 [facility] Comment on above: Performed By: #### 2 16900 ####[facility],[address] [place] [address] 12851 Creatinine [Mass/Vol] 0.81 mg/dL Normal 0.55 - 1.02 [facility] Comment on above: Performed By: #### 2 20700 ####[facility],[address] [place] [address] 68012 GFR/1.73 sq M.predicted among non-blacks MDRD (S/P/Bld) [Vol rate/Area] mL/min/{1.73_m2} Normal 60 - 999 [facility] Comment on above: Performed By: #### 2 46293 ####[facility],[address] [place] [address] 93133 Result Comment: ACCO RDING TO THE NATIONAL KIDNEY DISEASE EDUCATION PROGRAM(NKDE), A NORMAL eGFR IS A VALUE GREATER THAN OR EQUAL TO 60 ML/MIN/1.73 SQ METERS. CHRONIC KIDNEY DISEASE: <60mL/MIN/1.73 SQ METERS KIDNEY FAILURE: <15mL/MIN/1.73 SQ METERS THIS TEST SHOULD ONLY BE USED FOR PATIENTS 18 YEARS OF AGE AND OLDER. Globulin (S) [Mass/Vol] 4.7 g/dL High 1.5 - 3.8 [facility] Comment on above: Performed By: #### 2 58597 ####[facility],[address] [place] [address] 00286 Glucose [Mass/Vol] 155 mg/dL High 74 - 106 [facility] Comment on above: Performed By: #### 2 08435 ####[facility],[address] [place] [address] 58439 Potassium [Moles/Vol] 3.4 mmol/L Low 3.5 - 5.1 [facility] Comment on above: Performed By: #### 2 73689 ####[facility],[address] [place] [address] 92556 Protein [Mass/Vol] 8.0 g/dL Normal 6.4 - 8.2 [facility] Comment on above: Performed By: #### 2 31264 ####[facility],[address] [place] [address] 30110 Sodium [Moles/Vol] 141 mmol/L Normal 136 - 145 [facility] Comment on above: Performed By: #### 2 29398 ####[place] [address],[place] [address] Urea nitrogen [Mass/Vol] 8 mg/dL Normal 7 - 18 [facility] Comment on above: Performed By: #### 2 86180 ####[facility],[address] [place] [address] ABDOMEN/PELVIS Won 2023 CT ABDOMEN/PELVIS W [address] [address] Patient: CECILIA SENIOR Phone#: : 1990 Age: 34 Gender: F Pt. Type: ER Account: [id number] Location: [facility] Ordering: MARY NICOLE Exam Date: 05/13/2024/21:21 Family Phys: PATRICK MCDERMOTT Charge Code: [id number] Physician: Long Order #: [id number] Dose#: [id number] PROCEDURE: CT ABDOMEN/PELVIS WITH CONTRAST COMPARISON: [facility], CT, ABDOMEN/PELVIS W CON, 12/27/2022, 1:58. INDICATIONS: Abdomen pain TECHNIQUE: After obtaining the patient's consent, CT images were created with non-ionic intravenous contrast material. All CT scans at this facility use dose modulation, iterative reconstruction, and/or weight based dosing when appropriate to reduce radiation dose to as low as reasonably achievable. IV CONTRAST: Omnipaque 350,100ml TOTAL DOSE: 51.2 CTDIvol(mGy) FINDINGS: Study somewhat limited by patient body habitus. LIVER: Normal. No enlargement, atrophy, abnormal density, or significant focal lesion. BILIARY: Gallbladder is absent PANCREAS: Normal. No lesion, fluid collection, ductal dilatation, or atrophy. SPLEEN: Normal. No enlargement or focal lesion. KIDNEYS: Kidneys enhance and excrete contrast symmetrically. No hydronephrosis. ADRENALS: Normal. No mass or enlargement. AORTA/VASCULAR: No aortic aneurysm. RETROPERITONEUM: Normal. No mass or adenopathy. BOWEL/MESENTERY: No bowel obstruction or dilatation. No significant stool burden. The appendix is unremarkable in size and contains air. ABDOMINAL WALL: Normal. No mass or hernia. URINARY BLADDER: Urinary bladder is decompressed PELVIC NODES: Normal. No adenopathy. PELVIC ORGANS: Uterus is present. No adnexal mass. BONES: Normal. No bony lesion or fracture. LUNG BASES: Normal. No visible pulmonary or pleural disease. OTHER: Negative. Continued Report - Page 2 of 2 Patient: CECILIA SENIOR Phone#: : 1990 Age: 34 Gender: F Pt. Type: ER Account: [id number] Location: 2 Ordering: MARY NICOLE Exam Date: 05/13/2024/21:21 Family Phys: PATRICK MCDERMOTT Charge Code: [id number] Physician: Long Order #: [id number] Dose#: [id number] CONCLUSION: No appreciable acute intra-abdominal or pelvic abnormality. Dictated by: Stephanie Hackett MD on 05/14/2024 at 16:53 Approved by: Stephanie Hackett MD on 05/14/2024 at 17:02 Normal [facility] LIPASEon 05-13-2024 Lipase [Catalytic activity/Vol] 62.0 U/L Normal 15.0 - 78.0 [facility] Comment on above: Result Comment: *PLE ASE NOTE THAT RANGES FOR LIPASE HAVE CHANGED OF 08/20/23 DUE TO AN ASSAY UPDATE BY THE [employer] POL[employer].THE NEW ASSAY RANGE IS 6-250 U/L, WITH A REFERENCE RANGE OF 16-77 U/L. Performed By: #### 2 34862 #### [facility],[address] [place] [address] SERUM QUALon 05-13 EXTERNAL QC DONE? YES Normal [facility] Comment on above: Performed By: #### 2 98395 ####[facility],[address] [place] [address] INTERNAL QC PASS Normal [facility] Comment on above: Performed By: #### 2 93627 ####[facility],[address] [place] [address] SER Negative Normal NEGATIVE [facility] Comment on above: Performed By: #### 2 11350 ####[facility],[address] [place] [address] URINALYSISon 05-13-2024 Amorphous NONE Normal [facility] Comment on above: Performed By: #### 2 61396 #### [facility],[address] [place] [address] 18346 Bacteria NONE Normal [facility] Comment on above: Performed By: #### 2 27397 #### [facility],[address] [place] [address] 27954 Bilirubin Ql (U) Negative Normal NORMAL: NEGATIVE [facility] Comment on above: Performed By: #### 2 18100 #### [facility],[address] [place] [address] Casts NONE Normal [facility] Comment on above: Performed By: #### 2 48251 #### [facility],[address] [place] [address] Clarity (U) sl.cloudy Normal NORMAL: CLEAR [facility] Comment on above: Performed By: #### 2 55731 #### [facility],[address] [place], [place] [phone] Color (U) yellow Normal NORMAL: YELLOW [facility] Comment on above: Performed By: #### 2 77354 #### [facility],[address] [place] [address] 80359 Crystals LM Nom (Urine sed) NONE Normal [facility] Comment on above: Performed By: #### 2 66982 #### [facility],[address] [place] [address] 99922 Epi Cells FEW Normal [facility] Comment on above: Performed By: #### 2 49931 #### [facility],[address] [place] [address] 88783 Glucose Ql (U) NORM Normal NORMAL: NORMAL [facility] Comment on above: Performed By: #### 2 81835 #### [facility],[address] [place] [address] 78191 Hemoglobin Ql (U) 250 Abnormal NORMAL: NEGATIVE [facility] Comment on above: Performed By: #### 2 87628 #### [facility],[address] [place] [address] 77259 Ketone 150 Abnormal NORMAL: NEGATIVE [facility] Comment on above: Performed By: #### 2 34636 #### [facility],[address] [place] [address] 21634 Leukocytes 25 Abnormal NORMAL: NEGATIVE [facility] Comment on above: Performed By: #### 2 16008 #### [facility],[address] [place] [address] Mucous NONE Normal [facility] Comment on above: Performed By: #### 2 06685 #### [facility],[address] [place], [place] [phone] Nitrite Ql (U) Negative Normal NORMAL: NEGATIVE [facility] Comment on above: Performed By: #### 2 88520 #### [facility],[address] [place] [address] pH (U) 5 [pH] Normal NORMAL: 5.0-8.0 [facility] Comment on above: Performed By: #### 2 40030 #### [facility],[address] [place] [address] Protein Ql (U) 100 Abnormal NORMAL: NEGATIVE [facility] Comment on above: Performed By: #### 2 30044 #### [facility],[address] [place], [place] [phone] Rbc 30-35 Normal 0-3/hpf [facility] Comment on above: Performed By: #### 2 22340 #### [facility],[address] [place], [place] [phone] Sp [place] 1.010 Normal NORMAL: 1.010-1.030 [facility] Comment on above: Performed By: #### 2 28236 #### [facility],[address] [place] [address] Specimen Type Void Normal [facility] Comment on above: Performed By: #### 2 95030 #### [facility],[address] [place] [address] Urinalysis dipstick W Reflex Microscopic panel (U) SEE BELOW Normal [facility] Comment on above: Result Comment: MICR OSCOPIC Performed By: #### 2 93756 #### [facility],[address] [place] [address] Urobilinog NORM Normal NORMAL: NORMAL [facility] Comment on above: Performed By: #### 2 49988 #### [facility] [facility],[address] [place] [address] Wbc NONE Normal 0-5/hpf [facility] Comment on above: Performed By: #### 2 [id number] #### [facility],[address] [place] [address] Yeast NONE Normal [facility] Comment on above: Performed By: #### 2 [id number] #### [facility],[address] [place] [address] CBC AND ELECTRONIC DIFFon Abs Baso Auto < Normal 0.00-0.15 [facility] Comment on above: Performed By: #### S YPHT, RPR, HBSAG #### U [facility] (DEFAULT) [address] [address] Abs Eos Auto < Normal 0.00-0.42 [facility] Comment on above: Performed By: #### S YPHT, RPR, HBSAG #### [facility] (DEFAULT) [address] [address] Basophils/100 WBC (Bld) 0.2 % Normal O [facility] Comment on above: Performed By: #### S YPHT, RPR, HBSAG #### [facility] (DEFAULT) [address] [address] DIFF STATUS Electronic Differential Normal [facility] Comment on above: Performed By: #### S YPHT, RPR, HBSAG #### [facility] (DEFAULT) [address] [place] [address] Eosinophils/100 WBC (Bld) 0.0 % Normal [facility] Comment on above: Performed By: #### S YPHT, RPR, HBSAG #### [facility] (DEFAULT) [address] [place] [address] 10142 Hematocrit (Bld) [Volume fraction] 41.4 % Normal 34.9-44.3 [facility] Comment on above: Performed By: #### S YPHT, RPR, HBSAG #### [facility] (DEFAULT) [address] [place] [address] 25176 Hemoglobin (Bld) [Mass/Vol] 13.7 g/dL Normal 11.4-15.2 [facility] Comment on above: Performed By: #### S YPHT, RPR, HBSAG #### [facility] (DEFAULT) [address] [place] [address] 10292 Immature Grans % 0.2 % Normal [facility] Comment on above: Performed By: #### S YPHT, RPR, HBSAG #### [facility] (DEFAULT) [address] [place] [address] 75109 Immature Grans Absolute < Normal <=0.08 O [facility] Comment on above: Performed By: #### S YPHT, RPR, HBSAG #### [facility] (DEFAULT) [address] [place] [address] 18117 Lymphocytes (Bld) [#/Vol] 2.28 10*3/uL Normal 1.16-3.51 [facility] Comment on above: Performed By: #### S YPHT, RPR, HBSAG #### [facility] (DEFAULT) [address] [place] [address] 03645 Lymphocytes/100 WBC (Bld) 40.1 % Normal [facility] Comment on above: Performed By: #### S YPHT, RPR, HBSAG #### [facility] (DEFAULT) [address] [place] [address] 35124 MCV (RBC) [Entitic vol] 83.1 fL Normal 79.6-97.7 O [facility] Comment on above: Performed By: #### S YPHT, RPR, HBSAG #### U [facility] (DEFAULT) [address] [place] [address] 52815 Mean Cell Hgb 27.5 pg Normal 25.9-33.9 [facility] Comment on above: Performed By: #### S YPHT, RPR, HBSAG #### [facility] (DEFAULT) [address] [place] [address] 99274 Mean Cell Hgb Conc 33.1 g/dL Normal 31.4-35.9 [facility] Comment on above: Performed By: #### S YPHT, RPR, HBSAG #### [facility] (DEFAULT) [address] [place] [address] 34556 Monocytes (Bld) [#/Vol] 0.44 10*3/uL Normal 0.22-0.87 [facility] Comment on above: Performed By: #### S YPHT, RPR, HBSAG #### [facility] (DEFAULT) [address] [place] [address] 56727 Monocytes/100 WBC (Bld) 7.7 % Normal O [facility] Comment on above: Performed By: #### S YPHT, RPR, HBSAG #### [facility] (DEFAULT) [address] [place] [address] 68258 Nucleated RBC 0.0 /100 WBC Normal <=0.2 [facility] Comment on above: Performed By: #### S YPHT, RPR, HBSAG #### [facility] (DEFAULT) [address] [place] [address] 62912 Platelet mean volume (Bld) [Entitic vol] 10.8 fL Normal 8.5-12.2 [facility] Comment on above: Performed By: #### S YPHT, RPR, HBSAG #### [facility] (DEFAULT) [address] [place] [address] 53335 Platelets (Bld) [#/Vol] 257 10*3/uL Normal 150-393 [facility] Comment on above: Performed By: #### S YPHT, RPR, HBSAG #### [facility] (DEFAULT) [address] [place] [address] 99811 RBC (Bld) [#/Vol] 4.98 10*6/uL Normal 3.91-5.04 [facility] Comment on above: Performed By: #### S YPHT, RPR, HBSAG #### [facility] (DEFAULT) [address] [place] [address] 91786 RBC Distribution 15.4 % High 10.8-14.9 [facility] Comment on above: Performed By: #### S YPHT, RPR, HBSAG #### [facility] (DEFAULT) [address] [place] [address] 53516 Segs + Bands Auto 51.8 % Normal [facility] Comment on above: Performed By: #### S YPHT, RPR, HBSAG #### [facility] (DEFAULT) [address] [place] [address] 69699 Segs + Bands,Absolute Auto 2.95 K/uL Normal 1.64-7.28 [facility] Comment on above: Performed By: #### S YPHT, RPR, HBSAG #### [facility] (DEFAULT) [address] [place] [address] 31079 WBC (Bld) [#/Vol] 5.69 10*3/uL Normal 3.99-11.19 [facility] Comment on above: Performed By: #### S YPHT, RPR, HBSAG #### [facility] (DEFAULT) [address] [place] [address] 31489 CHEM 7 (LYTES,BUN,CREA,GLUC) on 11-30-2023 Anion gap [Moles/Vol] 17 mmol/L Normal 7-17 [facility] Comment on above: Performed By: #### I PB, MGO, CHM7 #### U [facility] (DEFAULT) [address] [place] [address] 63838 Chloride [Moles/Vol] 104 mmol/L Normal 98-108 [facility] Comment on above: Performed By: #### I PB, MGO, CHM7 #### [facility] (DEFAULT) [address] [place] [address] 88636 CO2 [Moles/Vol] 20 mmol/L Low 21-31 [facility] Comment on above: Performed By: #### I PB, MGO, CHM7 #### [facility] (DEFAULT) [address] [place] [address] 68870 Creatinine [Mass/Vol] 0.48 mg/dL Low 0.50-1.20 [facility] Comment on above: Performed By: #### I PB MGO, CHM7 #### U [facility] (DEFAULT) [address] [place] [address] 45362 eGFR, CKD-EPI, Female > Normal >=60 [facility] Comment on above: Result Comment: Repo rted eGFR is based on the CKD-EPI 2020 equation using creatinine, age, and sex. Performed By: #### I PB, MGO, CHM7 #### U [facility] (DEFAULT) [address] [place] [address] 80311 Glucose [Mass/Vol] 127 mg/dL High 70-99 [facility] Comment on above: Performed By: #### I PB, MGO, CHM7 #### [facility] (DEFAULT) [address] [place] [address] 79466 Osmolality [Osmolality] 287 mosm/kg Normal 278-305 [facility] Comment on above: Performed By: #### I PB, MGO, CHM7 #### [facility] (DEFAULT) [address] [place] [address] 47422 Potassium [Moles/Vol] 3.4 mmol/L Low 3.5-5.0 [facility] Comment on above: Performed By: #### I ALVIN MGO, CHM7 #### [facility] (DEFAULT) [address] [place] [address] 43000 Sodium [Moles/Vol] 138 mmol/L Normal 135-145 [facility] Comment on above: Performed By: #### I ALVIN MGO, CHM7 #### U [facility] (DEFAULT) [address] [place] [address] 30927 Urea nitrogen [Mass/Vol] 5 mg/dL Low 7-25 [facility] Comment on above: Performed By: #### I ALVIN MGO, CHM7 #### U [facility] (DEFAULT) [address] [place] [address] 90349 Urea nitrogen/Creatinine [Mass ratio] 10 mg/mg Normal [facility] Comment on above: Performed By: #### Victorina ESQUIVEL MGO, CHM7 #### U [facility] (DEFAULT) [address] [place] [address] 79600 INFLUENZA A/B RAPID MOLECULA Kory 11-30-2023 Influenza A, Molecular Not detected Normal Not Detecte d [facility] Comment on above: Order Comment: This test utilizes isothermal nucleic amplification technology for the differential qualitative detection of influenza A and influenza B viral nucleic acids. Performed By: #### S YPHT, RPR, HBSAG #### Miguel [facility] (DEFAULT) [address] [place] [address] 43381 Influenza B, Molecular Not detected Normal Not Detecte d [facility] Comment on above: Order Comment: This test utilizes isothermal nucleic amplification technology for the differential qualitative detection of influenza A and influenza B viral nucleic acids. Performed By: #### S YPHT, RPR, HBSAG #### [facility] (DEFAULT) [address] [place] [address]137 MAGNESIUMon 11-30-2023 Magnesium [Mass/Vol] 1.6 mg/dL Normal 1.6-2.6 [facility] Comment on above: Performed By: #### I PB MGO, CHM7 #### [facility] (DEFAULT) [address] [place] [address] 95682 PHOSPHATE, INORGANICon 11-29 Phosphorous <1.0 Critically low 2.2-4.6 [facility] Comment on above: Performed By: #### I PB MGO, CHM7 #### [facility] (DEFAULT) [address] [place] [address] 09360 SARS-COV-2 RAPIDon 4 SARS-CoV-2 (COVID-19) RNA MARISOL+probe Ql (Unsp spec) Detected Abnormal NOT DETECTED [facility] Comment on above: Order Comment: Use a isidro, foam, polyester, or flocked swab to collect a nasal or nasopharyngeal specimen. After collection, place in a clean, plastic screw cap vial, cap tightly and label with patient information. Transport double bagged in biohazard bag at room temperature. Must be received within 60 minutes of collection. Collection must be done while wearing N-95 mask, eye protection, gown, and gloves. Result Comment: [facility] ENHANCED CONTACT, AND DROPLET ISOLATION IS REQUIRED FOR INPATIENTS WITH SARS-CoV-2. This test was performed using isothermal nucleic acid amplification technology for the qualitative detection of SARS-CoV-2 nucleic acid. Performed By: #### S YPHT, RPR, HBSAG #### [facility] (DEFAULT) [address] [place] [address] 31394 Basic metabolic 2000 panelOr dered By: Jones [place] on 11-24-2023 Anion gap [Moles/Vol] 11 mmol/L 6 - 18 [facility] Calcium [Mass/Vol] 8.8 mg/dL Low 8.9 - 10. 3 mg/dL [facility] Chloride [Moles/Vol] 100 mmol/L 98 - 10 7 mmol/L [facility] CO2 [Moles/Vol] 25 mmol/L 22 - 32 mmol/L [facility] Creatinine [Mass/Vol] 0.59 mg/dL Low 0.60 - 1.30 mg/dL [facility] GFR/1.73 sq M.predicted among non-blacks MDRD (S/P/Bld) [Vol rate/Area] 121 mL/min/{1.73_m2} - PINF [facility] Comment on above: Calculation based on the Chronic Kidney Disease Epidemiology Collaboration (CKD-EPI) equation refit without adjustment for race. Glucose [Mass/Vol] 124 mg/dL High 70 - 99 mg/dL [facility] Interpretation and review of laboratory results Abnormal [facility] Potassium [Moles/Vol] 2.9 mmol/L Critically low 3.6 - 5.1 mmol/L [facility] Sodium [Moles/Vol] 136 mmol/L 136 - 145 mmol/L [facility] Urea nitrogen [Mass/Vol] 7 mg/dL Low 8 - 20 mg/dL [facility] Urea nitrogen/Creatinine [Mass ratio] 11.9 mg/mg Low 12.0 - 20.0 [facility] Beta HCG ( test) Ql on 11-24-2023 Magnesium [Mass/Vol] 1.7 mg/dL Low 1.8-2.5 [facility] Comment on above: Performed By: #### 2 110-5 #### [facility] [place] [address] HCG ( test) Ql Negative Negative T [facility] Interpretation and review of laboratory results Normal [facility] CBC W Differential panel, sc thod unspecified (Bld)on 11-24-2023 Basophils (Bld) [#/Vol] 0.00 10*3/uL Normal 0.00-0.20 [facility] Comment on above: Performed By: #### 6 9742-5 #### [facility] [place] [address] Basophils/100 WBC (Bld) 0.0 % Normal 0.0-2.0 [facility] Comment on above: Performed By: #### 6 9742-5 #### [facility] [place] [address] Eosinophils (Bld) [#/Vol] 0.00 10*3/uL Normal 0.00-0.70 [facility] Comment on above: Performed By: #### 6 9742-5 #### [facility] [address] [place] [address] 89387 Eosinophils/100 WBC (Bld) 0.0 % Normal 0.0-7.0 [facility] Comment on above: Performed By: #### 6 9742-5 #### [facility] [address] [place] [address] 99110 Erythrocyte distribution width (RBC) [Ratio] 15.6 % High 11.0-14.8 [facility] Comment on above: Performed By: #### 6 9742-5 #### [facility] [address] [place] [address] 40055 Hematocrit (Bld) [Volume fraction] 39.4 % Normal 34.3-47.9 [facility] Comment on above: Performed By: #### 6 9742-5 #### [facility] [address] [place] [address] 75250 Hemoglobin (Bld) [Mass/Vol] 13.1 g/dL Normal 12.0-16.0 [facility] Comment on above: Performed By: #### 6 9742-5 #### [facility] [address] [place] [address] 33272 Immature granulocytes (Bld) [#/Vol] 0.01 10*3/uL Normal 0.00-0.10 [facility] Comment on above: Performed By: #### 6 9742-5 #### [facility] [address] [place] [address] 16242 Immature granulocytes/100 WBC (Bld) 0.2 % Normal 0.0-1.2 [facility] Comment on above: Performed By: #### 6 9742-5 #### [facility] [address] [place] [address] 29849 Lymphocytes (Bld) [#/Vol] 1.21 10*3/uL Normal 1.00-4.80 [facility] Comment on above: Performed By: #### 6 9742-5 #### [facility] [place] [address] Lymphocytes/100 WBC (Bld) 27.2 % Normal 17.9-49.6 [facility] Comment on above: Performed By: #### 6 9742-5 #### [facility] [address] [place] [address] [place] [address] MCH 28.2 pcg Normal 27.0-34.0 [facility] Comment on above: Performed By: #### 6 9742-5 #### [facility] [address] [place] [address] [place] [address] MCHC (RBC) [Mass/Vol] 33.2 g/dL Normal 30.8-35.3 [facility] Comment on above: Performed By: #### 6 9742-5 #### [facility] [address] [place] [address] [place] [address] MCV (RBC) [Entitic vol] 84.7 fL Normal 80.0-97.0 M [facility] Comment on above: Performed By: #### 6 9742-5 #### [facility] [address] [place] [address] [place] [address] Monocytes (Bld) [#/Vol] 0.63 10*3/uL Normal 0.00-0.90 [facility] Comment on above: Performed By: #### 6 9742-5 #### [facility] [address] [place], [place] [address] [address] Monocytes/100 WBC (Bld) 14.2 % High 0.0-12.0 M [facility] Comment on above: Performed By: #### 6 9742-5 #### [facility] [address] [place] [address] [place] [address] Neutrophils Absolute 2.60 K/mcL Normal 1.80-7.[address] [facility] Comment on above: Performed By: #### 6 9742-5 #### [facility] [place] [address] Neutrophils/100 WBC (Bld) 58.4 % Normal 38.1-75.5 [facility] Comment on above: Performed By: #### 6 9742-5 #### [facility] [place] [address] Platelet mean volume (Bld) [Entitic vol] 10.1 fL Normal 6.2-12.1 [facility] Comment on above: Performed By: #### 6 9742-5 #### [facility] [address] [place] [address] [place] [address] Platelets (Bld) [#/Vol] 267 10*3/uL Normal 142-424 [facility] Comment on above: Performed By: #### 6 9742-5 #### [facility] [address] [place] [address] [place] [address] RBC (Bld) [#/Vol] 4.65 10*6/uL Normal 3.74-5.34 [facility] Comment on above: Performed By: #### 6 9742-5 #### [facility] [address] [place] [address] [place] [address] WBC (Bld) [#/Vol] 4.5 10*3/uL Low 4.6-10.2 [facility] Comment on above: Performed By: #### 6 9742-5 #### [facility] [place] [place] [address] Basophils (Bld) [#/Vol] 0.00 10*3/uL [facility] Basophils/100 WBC (Bld) 0.0 % 0.0 - 2.0 % [facility] Eosinophils (Bld) [#/Vol] 0.00 10*3/uL [facility] Eosinophils/100 WBC (Bld) 0.0 % 0.0 - 7.0 % [facility] Erythrocyte distribution width (RBC) [Ratio] 15.6 % High 11.0 - 14.8 % [facility] Hematocrit (Bld) [Volume fraction] 39.4 % 34.3 - 47.9 % [facility] Hemoglobin (Bld) [Mass/Vol] 13.1 g/dL 12.0 - 16.0 g/dL [facility] Immature granulocytes (Bld) [#/Vol] 0.01 10*3/uL [facility] Immature granulocytes/100 WBC (Bld) 0.2 % 0.0 - 1.2 % [facility] Interpretation and review of laboratory results Abnormal [facility] Lymphocytes (Bld) [#/Vol] 1.21 10*3/uL [facility] Lymphocytes/100 WBC (Bld) 27.2 % 17.9 - 49.6 % [facility] MCH (RBC) [Entitic mass] 28.2 pg [facility] MCHC (RBC) [Mass/Vol] 33.2 g/dL 30.8 - 35.3 g/dL [facility] MCV (RBC) [Entitic vol] 84.7 fL [facility] Monocytes (Bld) [#/Vol] 0.63 10*3/uL [facility] Monocytes/100 WBC (Bld) 14.2 % High 0.0 - 12.0 % [facility] Neutrophils (Bld) [#/Vol] 2.60 10*3/uL [facility] Neutrophils/100 WBC (Bld) 58.4 % 38.1 - 75.5 % [facility] Platelet mean volume (Bld) [Entitic vol] 10.1 fL [facility] Platelets (Bld) [#/Vol] 267 10*3/uL [facility] RBC (Bld) [#/Vol] 4.65 10*6/uL [facility] WBC (Bld) [#/Vol] 4.5 10*3/uL [facility] Hepatic function 2000 panelo n 11-24-2023 Albumin [Mass/Vol] 4.0 g/dL 3.5 - 4.8 g/dL [facility] ALP [Catalytic activity/Vol] 64 U/L [facility] ALT [Catalytic activity/Vol] 39 U/L [facility] AST [Catalytic activity/Vol] 50 U/L High [facility] Bilirubin [Mass/Vol] 0.4 mg/dL 0.3 - 1 .2 mg/dL [facility] Bilirubin.direct [Mass/Vol] 0.1 mg/dL NINF - 0.5 mg/dL [facility] Bilirubin.indirect [Mass/Vol] 0.3 mg/dL 0.0 - 1.0 mg/dL [facility] Interpretation and review of laboratory results Abnormal [facility] Protein [Mass/Vol] 7.2 g/dL 6.1 - 7.9 g/dL [facility] Lipaseon 11-24-2023 Lipase [Catalytic activity/Vol] 36 U/L [facility] Lipase [Catalytic activity/V ol]on 11-24-2023 Interpretation and review of laboratory results Normal [facility] Magnesiumon 11-24-2023 Magnesium [Mass/Vol] 1.7 mg/dL Low 1.8 - 2 .5 mg/dL [facility] Magnesium [Mass/Vol]on 11-23 Interpretation and review of laboratory results Abnormal [facility] No Panel Informationon 11-23 [facility] HCG ( test) Ql (U)o n 11-22-2023 Beta HCG ( test) Ql (U) Negative Negative [facility] Beta HCG ( test) Ql (U) Yes Yes [facility] EXPIRATION DATE POC 2025-06-06 [facility] Interpretation and review of laboratory results Normal [facility] LOT NUMBER POC 194486 [facility] Beta HCG ( test) Ql (U) Negative Negative [facility] Beta HCG ( test) Ql (U) Yes Yes [facility] EXPIRATION DATE POC 2025-06-06 [facility] Interpretation and review of laboratory results Normal [facility] LOT NUMBER POC [id number] [facility] POCT BASIC METABOLIC PROFILE on 11-22-2023 Calcium [Mass/Vol] 10.1 mg/dL Normal 8.9-10.3 [facility] Comment on above: Performed By: #### L [id number] #### [facility] [address] [place] [address] Chloride [Moles/Vol] 108 mmol/L High 98-107 [facility] Comment on above: Performed By: #### L [id number] #### [facility] [address] [place] [address] CO2 [Moles/Vol] 21 mmol/L Low 22-32 [facility] Comment on above: Performed By: #### L [id number] #### [facility] [address] [place] [address] Creatinine [Mass/Vol] 0.3 mg/dL Low 0.6-1.3 [facility] Comment on above: Performed By: #### L [id number] #### [facility] [address] [place] [address] GFR/1.73 sq M.predicted among non-blacks MDRD (S/P/Bld) [Vol rate/Area] 148 mL/min/{1.73_m2} Normal >=60 [facility] Comment on above: Performed By: #### L [id number] #### [facility] [address] [place] [address] Glucose [Mass/Vol] 161 mg/dL High 70-99 [facility] Comment on above: Performed By: #### L [id number] #### [facility] [address] [place] [address] Potassium [Moles/Vol] 4.0 mmol/L Normal 3.6-5.1 [facility] Comment on above: Performed By: #### L [id number] #### [facility] [address] [place] [address] Sodium [Moles/Vol] 141 mmol/L Normal 136-145 [facility] Comment on above: Performed By: #### L [id number] #### [facility] [address] [place] [address] Urea nitrogen [Mass/Vol] 6 mg/dL Low 8-20 [facility] Comment on above: Performed By: #### L [id number] #### [facility] [address] [place] [address] Calcium [Mass/Vol] 10.1 mg/dL Normal 8.9-10.3 [facility] Comment on above: Performed By: #### L [id number] ####[facility] [id number] [place] [address] Chloride [Moles/Vol] 107 mmol/L Normal 98-107 [facility] Comment on above: Performed By: #### L [id number] ####[facility] [id number] [place] [address] CO2 [Moles/Vol] 21 mmol/L Low 22-32 [facility] Comment on above: Performed By: #### L [id number] ####[facility] [id number] [place] [address] Creatinine [Mass/Vol] 0.6 mg/dL Normal 0.6-1.3 [facility] Comment on above: Performed By: #### L [id number] ####[facility] [facility] [id number] [place] [address] GFR/1.73 sq M.predicted among non-blacks MDRD (S/P/Bld) [Vol rate/Area] 118 mL/min/{1.73_m2} Normal >=60 [facility] Comment on above: Performed By: #### L [id number] ####[facility] ([facility]) [id number] [place] [address] Glucose [Mass/Vol] 165 mg/dL High 70-99 [facility] Comment on above: Performed By: #### L [id number] ####[facility] [id number] [place] [address] Potassium [Moles/Vol] 3.9 mmol/L Normal 3.6-5.1 [facility] Comment on above: Performed By: #### L [id number] ####[facility] [id number] [place] [address] Sodium [Moles/Vol] 144 mmol/L Normal 136-145 [facility] Comment on above: Performed By: #### L [id number] ####[facility] ([facility]) [id number] [place] [address] Urea nitrogen [Mass/Vol] 6 mg/dL Low 8-20 [facility] Comment on above: Performed By: #### L [id number] ####[facility] ([facility]) [id number] [place] [address] POCT Basic metabolic profile on 11-22-2023 Calcium [Mass/Vol] 10.1 mg/dL 8.9 - 10. 3 mg/dL [facility] Chloride [Moles/Vol] 108 mmol/L High 98 - 10 7 mmol/L [facility] CO2 [Moles/Vol] 21 mmol/L Low 22 - 32 mmol/L [facility] Creatinine [Mass/Vol] 0.3 mg/dL Low 0.6 - 1.3 mg/dL [facility] GFR/1.73 sq M.predicted among non-blacks MDRD (S/P/Bld) [Vol rate/Area] 148 mL/min/{1.73_m2} - PINF [facility] Glucose [Mass/Vol] 161 mg/dL High 70 - 99 mg/dL [facility] Interpretation and review of laboratory results Abnormal [facility] Potassium [Moles/Vol] 4.0 mmol/L 3.6 - 5.1 mmol/L [facility] Sodium [Moles/Vol] 141 mmol/L 136 - 145 mmol/L [facility] Urea nitrogen [Mass/Vol] 6 mg/dL Low 8 - 20 mg/dL [facility] Calcium [Mass/Vol] 10.1 mg/dL 8.9 - 10. 3 mg/dL [facility] Chloride [Moles/Vol] 107 mmol/L 98 - 10 7 mmol/L [facility] CO2 [Moles/Vol] 21 mmol/L Low 22 - 32 mmol/L [facility] Creatinine [Mass/Vol] 0.6 mg/dL 0.6 - 1.3 mg/dL [facility] GFR/1.73 sq M.predicted among non-blacks MDRD (S/P/Bld) [Vol rate/Area] 118 mL/min/{1.73_m2} - PINF [facility] Glucose [Mass/Vol] 165 mg/dL High 70 - 99 mg/dL [facility] Interpretation and review of laboratory results Abnormal [facility] Potassium [Moles/Vol] 3.9 mmol/L 3.6 - 5.1 mmol/L [facility] Sodium [Moles/Vol] 144 mmol/L 136 - 145 mmol/L [facility] Urea nitrogen [Mass/Vol] 6 mg/dL Low 8 - 20 mg/dL [facility] Urinalysis macro (dipstick) panel (U)on 11-22-2023 Bilirubin Urine POCT Small Abnormal Negative [facility] Comment on above: Performed By: #### 2 4357-6 ####[facility] ([facility]) [id number] [place] [address] Blood Urine POCT Large Abnormal Negative [facility] Comment on above: Performed By: #### 2 4357-6 ####[facility] ([facility]) [id number] [place] [address] Clarity Urine POCT Clear Normal Clear [facility] Comment on above: Performed By: #### 2 4357-6 ####[facility] ([facility]) [id number] [place] [address] Color Urine POCT Dark Yellow Abnormal Yellow, Light Yellow [facility] Comment on above: Performed By: #### 2 4357-6 ####[facility] ([facility]) [id number] [place] [address] Glucose Urine POCT 100. mg/dL Abnormal Negative [facility] Comment on above: Performed By: #### 2 4357-6 ####[facility] ([facility]) [id number] [place] [address] Ketones Urine POCT >=160 Abnormal Negative [facility] Comment on above: Performed By: #### 2 4357-6 ####[facility] ([facility]) [id number] [place] [address] Leukocyte Esterase POCT Trace Abnormal Negative [facility] Comment on above: Performed By: #### 2 4357-6 ####[facility] ([facility]) [id number] [place] [address] Nitrite POCT Positive Abnormal Negative [facility] Comment on above: Performed By: #### 2 4357-6 ####[facility] ([facility]) [id number] [place] [address] pH Urine POCT 6.0 Normal 5.0-8.5 [facility] Lynn larry [place] Comment on above: Performed By: #### 2 435-6 ####[facility] ([facility]) [id number] [place] [address] Protein Urine POCT >=300 Abnormal Negative [facility] Comment on above: Performed By: #### 2 4357-6 ####[facility] ([facility]) [id number] [place] [address] Specific [place] Urine POCT 1.030 Normal 1.005-1.030 [facility] Comment on above: Performed By: #### 2 4357-6 ####[facility] ([facility]) [id number] [place] [address] Urobilinogen POCT 0.2 EU/dL Normal 0.2 - 1.0 [facility] Comment on above: Performed By: #### 2 7-6 ####[facility] ([facility]) [id number] [place] [address] Bilirubin Urine POCT Moderate Abnormal Negative [facility] Comment on above: Performed By: #### 2 4357-6 #### [facility] ([facility]) LAB [address] [place] [address] Blood Urine POCT Large Abnormal Negative [facility] Comment on above: Performed By: #### 2 4357-6 #### [facility] ([facility]) LAB [address] [place] [address] Clarity Urine POCT Clear Normal Clear [facility] Comment on above: Performed By: #### 2 4357-6 #### [facility] ([facility] [address] [place] [address] Color Urine POCT Dark Yellow Abnormal Yellow, Light Yellow [facility] Comment on above: Performed By: #### 2 4357-6 #### [facility] [address] [place] [address] Glucose Urine POCT 100. mg/dL Abnormal Negative [facility] Comment on above: Performed By: #### 2 4357-6 #### [facility] ([facility]) LAB [address] [place] [address] Ketones Urine POCT >=160 Abnormal Negative [facility] Comment on above: Performed By: #### 2 4357-6 #### [facility] ([facility]) LAB [address] [place] [address] Leukocyte Esterase POCT Trace Abnormal Negative [facility] Comment on above: Performed By: #### 2 4357-6 #### [facility] ([facility]) LAB [address] [place] [address] Nitrite POCT Positive Abnormal Negative [facility] Comment on above: Performed By: #### 2 4357-6 #### [facility] ([facility]) LAB [address] [place] [address] pH Urine POCT 6.0 Normal 5.0-8.5 [facility] Comment on above: Performed By: #### 2 4357-6 #### [facility] [address] [place] [address] Protein Urine POCT >=300 Abnormal Negative [facility] Comment on above: Performed By: #### 2 4357-6 #### [facility] ([facility]) LAB [address] [place] [address] Specific [place] Urine POCT 1.030 Normal 1.005-1.030 [facility] Comment on above: Performed By: #### 2 4357-6 #### [facility] [address] [place] [address] Urobilinogen POCT 0.2 EU/dL Normal 0.2 - 1.0 [facility] Fidel murphy [place] Comment on above: Performed By: #### 2 4357-6 #### [facility]) LAB [address] [place] [address] Bilirubin Ql (U) Small Abnormal Negative [facility] Blood Visual Ql (U) Large Abnormal Negative eryth/mcL [facility] Clarity (U) Clear Clear [facility] Color (U) Dark Yellow Abnormal Yellow, Light Yellow [facility] Color (U) Trace Abnormal Negative [facility] Color (U) 6.0 5.0 - 8.5 [facility] Glucose Test strip (U) [Mass/Vol] 100. Abnormal Negative mg/dL [facility] Interpretation and review of laboratory results Abnormal [facility] Ketones (U) [Mass/Vol] mg/dL Abnormal Negat aden mg/dL [facility] Nitrite (Unsp spec) [Mass/Vol] Positive Abnormal Negative [facility] Protein (U) [Mass/Vol] mg/dL Abnormal Negat aden mg/dL [facility] Specific gravity (U) [Rel density] 1.030 1.005 - 1.030 [facility] Urobilinogen Qn (U) 0.2 {Mayito'U}/dL 0. 2 - 1.0 EU/dL [facility] Bilirubin Ql (U) Moderate Abnormal Negative [facility] Blood Visual Ql (U) Large Abnormal Negative eryth/mcL [facility] Clarity (U) Clear Clear [facility] Color (U) Dark Yellow Abnormal Yellow, Light Yellow [facility] Color (U) Trace Abnormal Negative [facility] Color (U) 6.0 5.0 - 8.5 [facility] Glucose Test strip (U) [Mass/Vol] 100. Abnormal Negative mg/dL [facility] Interpretation and review of laboratory results Abnormal [facility] Ketones (U) [Mass/Vol] mg/dL Abnormal Negat aden mg/dL [facility] Nitrite (Unsp spec) [Mass/Vol] Positive Abnormal Negative [facility] Protein (U) [Mass/Vol] mg/dL Abnormal Negat aden mg/dL [facility] Specific gravity (U) [Rel density] 1.030 1.005 - 1.030 [facility] Urobilinogen Qn (U) 0.2 {Mayito'U}/dL 0. 2 - 1.0 EU/dL [facility] CBC with differentialon Erythrocyte distribution width (RBC) [Ratio] 16.3 % 11.0 - 16.3 % [facility] Hematocrit (Bld) [Volume fraction] 39.0 % 31.1 - 57.4 % [facility] Hemoglobin (Bld) [Mass/Vol] 12.9 g/dL Low 13.0 - 17.0 g/dL [facility] Interpretation and review of laboratory results Abnormal [facility] Lymphocyte # POCT 3.5 [facility] Lymphocytes/100 WBC (Bld) 21.7 % Low 25 - 57 % [facility] MCH POCT 28.5 [facility] MCHC (RBC) [Mass/Vol] 33.1 g/dL 32.7 - 36.7 g/dL [facility] MCV POCT 86.1 [facility] MPV POCT 10.2 [facility] MXD # POCT 0.8 [facility] MXD % POCT 5.1 % 1.2 - 11.4 % [facility] Neutrophil # POCT 12.0 High [facility] Neutrophils/100 WBC (Bld) 73.2 % 37 - 75 % [facility] Platelet Ab Ql (S) 386 K/uL 166 - 400 K/uL [facility] RBC POCT 4.53 [facility] WBC POCT 16.3 High [facility] FLUAV and FLUBV Ag IA.rapid Nom (Unsp spec)on 09-27-2023 Influenza A Screen POCT Not detected Normal Not Detect ed [facility] Comment on above: Order Comment: Molec ular testing utilizing isothermal nucleic acid amplification technology. Performed By: #### 7 2356-9 ####[facility] ([facility]) [id number] [place] [address] Influenza B Screen POCT Not detected Normal Not Detect ed [facility] Comment on above: Order Comment: Molec ular testing utilizing isothermal nucleic acid amplification technology. Performed By: #### 7 2356-9 ####[facility] ([facility]) [id number] [place] [address] FLUAV Ag IA Ql (Unsp spec) Not detected Not Detected [facility] FLUBV Ag IA Ql (Unsp spec) Not detected Not Detected [facility] Interpretation and review of laboratory results Normal [facility] Molecular testing utilizing isothermal nucleic acid amplification technology. [facility] POCT BASIC METABOLIC PROFILE on 09-27-2023 Calcium [Mass/Vol] 9.6 mg/dL Normal 8.9-10.3 [facility] Comment on above: Performed By: #### L [id number] ####[facility] ([facility]) [id number] [place] [address] Chloride [Moles/Vol] 104 mmol/L Normal 98-107 [facility] Comment on above: Performed By: #### L [id number] ####[facility] ([facility]) [id number] [place] [address] CO2 [Moles/Vol] 25 mmol/L Normal 22-32 [facility] Comment on above: Performed By: #### L [id number] ####[facility] [id number] [place] [address] Creatinine [Mass/Vol] 0.4 mg/dL Low 0.6-1.3 [facility] Comment on above: Performed By: #### L [id number] ####[facility] ([facility]) [id number] [place] [address] GFR/1.73 sq M.predicted among non-blacks MDRD (S/P/Bld) [Vol rate/Area] 135 mL/min/{1.73_m2} Normal >=60 [facility] Comment on above: Performed By: #### L [id number] ####[facility] ([facility]) [id number] [place] [address] Glucose [Mass/Vol] 109 mg/dL High 70-99 [facility] Comment on above: Performed By: #### L [id number] ####[facility] ([facility]) [id number] [place] [address] Potassium [Moles/Vol] 3.4 mmol/L Low 3.6-5.1 [facility] Comment on above: Performed By: #### L [id number] ####[facility] ([facility]) [id number] [place] [address] Sodium [Moles/Vol] 140 mmol/L Normal 136-145 [facility] Comment on above: Performed By: #### L [id number] ####[facility] ([facility]) [id number] [place] [address] Urea nitrogen [Mass/Vol] 7 mg/dL Low 8-20 [facility] Comment on above: Performed By: #### L [id number] ####[facility] ([facility]) [id number] [place] [address] POCT Basic metabolic profile on 09-27-2023 Calcium [Mass/Vol] 9.6 mg/dL 8.9 - 10. 3 mg/dL [facility] Chloride [Moles/Vol] 104 mmol/L 98 - 10 7 mmol/L [facility] CO2 [Moles/Vol] 25 mmol/L 22 - 32 mmol/L [facility] Creatinine [Mass/Vol] 0.4 mg/dL Low 0.6 - 1.3 mg/dL [facility] GFR/1.73 sq M.predicted among non-blacks MDRD (S/P/Bld) [Vol rate/Area] 135 mL/min/{1.73_m2} - PINF [facility] Glucose [Mass/Vol] 109 mg/dL High 70 - 99 mg/dL [facility] Interpretation and review of laboratory results Abnormal [facility] Potassium [Moles/Vol] 3.4 mmol/L Low 3.6 - 5.1 mmol/L [facility] Sodium [Moles/Vol] 140 mmol/L 136 - 145 mmol/L [facility] Urea nitrogen [Mass/Vol] 7 mg/dL Low 8 - 20 mg/dL [facility] POCT CBC WITH DIFFERENTIALon 09-27-2023 Erythrocyte distribution width (RBC) [Ratio] 16.3 % Normal 11.0-16.3 [facility] Comment on above: Performed By: #### L [id number] ####[facility] ([facility]) [id number] [place] [address] Hematocrit (Bld) [Volume fraction] 39.0 % Normal 31.1-57.4 [facility] Comment on above: Performed By: #### L [id number] ####[facility]) [id number] [place] [address] Hemoglobin (Bld) [Mass/Vol] 12.9 g/dL Low 13.0-17.0 [facility] Comment on above: Performed By: #### L [id number] ####[facility] ([facility]) [id number] [place] [address] Lymphocytes (Bld) [#/Vol] 3.5 10*3/uL Normal 1.0-4.8 [facility] Comment on above: Performed By: #### L [id number] ####[facility] [id number] [place] [address] Lymphocytes/100 WBC (Bld) 21.7 % Low 25-57 [facility] Comment on above: Performed By: #### L [id number] ####[facility] [id number] [place] [address] MCH POCT 28.5 pcg Normal 27.4-35.7 [facility] Comment on above: Performed By: #### L [id number] ####[facility] [id number] [place] [address] MCHC (RBC) [Mass/Vol] 33.1 g/dL Normal 32.7-36.7 [facility] Comment on above: Performed By: #### L [id number] ####[facility] [id number] [place] [address] MCV (RBC) [Entitic vol] 86.1 fL Normal 82.5-102.0 [facility] Comment on above: Performed By: #### L [id number] ####[facility]) [id number] [place] [address] MXD # POCT 0.8 K/mcL Normal 0.1-1.3 [facility] Comment on above: Performed By: #### L [id number] ####[facility] [id number] [place] [address] MXD % POCT 5.1 % Normal 1.2-11.4 [facility] Comment on above: Performed By: #### L [id number] ####[facility] [id number] [place] [address] Neutrophils (Bld) [#/Vol] 12.0 10*3/uL High 1.8-7.7 [facility] Comment on above: Performed By: #### L [id number] ####[facility]) [id number] [place] [address] Neutrophils/100 WBC (Bld) 73.2 % Normal 37-75 [facility] Comment on above: Performed By: #### L [id number] ####[facility]) [id number] [place] [address] Platelet mean volume (Bld) [Entitic vol] 10.2 fL Normal 8.5-13.5 [facility] Comment on above: Performed By: #### L [id number] ####[facility]) [id number] [place] [address] Platelet POCT 386 K/uL Normal 166-400 [facility] Comment on above: Performed By: #### L [id number] ####[facility] ([facility]) [id number] [place] [address] RBC (Bld) [#/Vol] 4.53 10*6/uL Normal 4.30-5.70 [facility] Comment on above: Performed By: #### L [id number] ####[facility]) [id number] [place] [address] WBC (Bld) [#/Vol] 16.3 10*3/uL High 4.5-13.5 [facility] Comment on above: Performed By: #### L [id number] ####[facility] ([facility]) [id number] [place] [address] POCT [id number]-[id number]-[id number] screening , molecularon 09-27-2023 SARS-CoV-2 (COVID-19) RdRp gene MARISOL+probe Ql (Resp) Not detected Not Detected [facility] SARS-CoV-2 (COVID-19) RdRp g vielka MARISOL+probe Ql (Resp)on 09-27-2023 SARS-CoV-2 (COVID-19) RNA MARISOL+probe Ql (Unsp spec) Not detected Normal Not Detected [facility] Comment on above: Order Comment: Molec ular testing utilizing isothermal nucleic acid amplification technology. Performed By: #### 9 4534-5 ####[facility] ([facility]) [id number] [place] [address] Interpretation and review of laboratory results Normal [facility] Molecular testing utilizing isothermal nucleic acid amplification technology. [facility] Basic metabolic 2000 panelon 09-26-2023 Anion gap [Moles/Vol] 12 mmol/L 6 - 18 [facility] Calcium [Mass/Vol] 9.2 mg/dL 8.9 - 10. 3 mg/dL [facility] Chloride [Moles/Vol] 107 mmol/L 98 - 10 7 mmol/L [facility] CO2 [Moles/Vol] 20 mmol/L Low 22 - 32 mmol/L [facility] Creatinine [Mass/Vol] 0.64 mg/dL 0.60 - 1.30 mg/dL [facility] GFR/1.73 sq M.predicted among non-blacks MDRD (S/P/Bld) [Vol rate/Area] 118 mL/min/{1.73_m2} - PINF [facility] Comment on above: Calculation based on the Chronic Kidney Disease Epidemiology Collaboration (CKD-EPI) equation refit without adjustment for race. Glucose [Mass/Vol] 147 mg/dL High 70 - 99 mg/dL [facility] Potassium [Moles/Vol] 3.8 mmol/L 3.6 - 5.1 mmol/L [facility] Sodium [Moles/Vol] 139 mmol/L 136 - 145 mmol/L [facility] Urea nitrogen [Mass/Vol] 5 mg/dL Low 8 - 20 mg/dL [facility] Urea nitrogen/Creatinine [Mass ratio] 7.8 mg/mg Low 12.0 - 20.0 [facility] HCG.beta subunit Qnon 2023 HCG Qn mIU/mL [facility] Reference Ranges Negative = < 5 mIU/ml Positive = > OR EQUAL TO 5 mIU/ml The concentration of HCG rises rapidly during early . A maximum level of 5,000 to 200,000 mIU/ML is reached at 6-8 weeks. This is followed by a slow decline to levels of 1,000 to 50,000 mIU/ML during the third trimester. This test should be used only for the diagnosis and monitoring of . It should not be used for monitoring of neoplastic conditions including gestational trophoblastic disease (partial mole, complete hydatidiform mole, choriocarcinoma) or other tumors. For monitoring of neoplastic disease a Beta subunit HCG test should be ordered. Results obtained using different immunoassay methods are not interchangeable. Patient results should not be trended using values obtained with a different immunoassay method. [facility] Hemogram and platelets WO di fferential panel (Bld)on 09-26-2023 Basophils (Bld) [#/Vol] 0.03 10*3/uL Normal 0.00-0.20 [facility] Comment on above: Performed By: #### 2 4317-0 #### [facility] [address] [place] [address] Basophils/100 WBC (Bld) 0.1 % Normal 0.0-2.0 M [facility] Comment on above: Performed By: #### 2 4317-0 #### [facility] [address] [place] [address] Eosinophils (Bld) [#/Vol] 0.00 10*3/uL Normal 0.00-0.70 [facility] Comment on above: Performed By: #### 2 4317-0 #### [facility] [address] [place] [address] Eosinophils/100 WBC (Bld) 0.0 % Normal 0.0-7.0 [facility] Comment on above: Performed By: #### 2 4317-0 #### [facility] [address] [place] [address] Erythrocyte distribution width (RBC) [Ratio] 15.9 % High 11.0-14.8 [facility] Comment on above: Performed By: #### 2 4317-0 #### [facility] [address] [place] [address] Hematocrit (Bld) [Volume fraction] 37.9 % Normal 34.3-47.9 [facility] Comment on above: Performed By: #### 2 4317-0 #### [facility] [address] [place] [address] Hemoglobin (Bld) [Mass/Vol] 12.5 g/dL Normal 12.0-16.0 [facility] Comment on above: Performed By: #### 2 4317-0 #### [facility] [address] [place] [address] Immature granulocytes (Bld) [#/Vol] 0.11 10*3/uL High 0.00-0.10 [facility] Comment on above: Performed By: #### 2 4317-0 #### [facility] [address] [place] [address] Immature granulocytes/100 WBC (Bld) 0.5 % Normal 0.0-1.2 [facility] Comment on above: Performed By: #### 2 4317-0 #### [facility] [address] [place] [id number] Lymphocytes (Bld) [#/Vol] 1.85 10*3/uL Normal 1.00-4.80 [facility] Comment on above: Performed By: #### 2 4317-0 #### [facility] [address] [place] [address] 862[address] Lymphocytes/100 WBC (Bld) 9.2 % Low 17.9-49.6 [facility] Comment on above: Performed By: #### 2 4317-0 #### [facility] [place] [address] MCH 28.3 pcg Normal 27.0-34.0 [facility] Comment on above: Performed By: #### 2 4317-0 #### [facility] [address] [place] [address] [place] [address] MCHC (RBC) [Mass/Vol] 33.0 g/dL Normal 30.8-35.3 [facility] Comment on above: Performed By: #### 2 4317-0 #### [facility] [address] [place] [address] MCV (RBC) [Entitic vol] 85.7 fL Normal 80.0-97.0 M [facility] Comment on above: Performed By: #### 2 4317-0 #### [facility] [address] [place] [address] 17642 Monocytes (Bld) [#/Vol] 0.61 10*3/uL Normal 0.00-0.90 [facility] Comment on above: Performed By: #### 2 4317-0 #### [facility] [address] [place], [place] [address] [address] Monocytes/100 WBC (Bld) 3.0 % Normal 0.0-12.0 M [facility] Comment on above: Performed By: #### 2 4317-0 #### [facility] [address] [place] [address]118 Neutrophils Absolute 17.53 K/mcL High 1.80-7.70 [facility] Comment on above: Performed By: #### 2 4317-0 #### [facility] [address] [place], [place] [address] [address] Neutrophils/100 WBC (Bld) 87.2 % High 38.1-75.5 [facility] Comment on above: Performed By: #### 2 4317-0 #### [facility] [place] [address] [place] [address] Platelet mean volume (Bld) [Entitic vol] 9.9 fL Normal 6.2-12.1 [facility] Comment on above: Performed By: #### 2 4317-0 #### [facility] [address] [place] [address] [place] [address] Platelets (Bld) [#/Vol] 401 10*3/uL Normal 142-424 [facility] Comment on above: Performed By: #### 2 4317-0 #### [facility] [address] [place] [address] [place] [address] RBC (Bld) [#/Vol] 4.42 10*6/uL Normal 3.74-5.34 [facility] Comment on above: Performed By: #### 2 4317-0 #### [facility] [address] [place] [address] 14986 WBC (Bld) [#/Vol] 20.1 10*3/uL High 4.6-10.2 [facility] Comment on above: Performed By: #### 2 4317-0 #### [facility] [address] [place] [address] [place] [address] Basophils (Bld) [#/Vol] 0.03 10*3/uL [facility] Basophils/100 WBC (Bld) 0.1 % 0.0 - 2.0 % [facility] Eosinophils (Bld) [#/Vol] 0.00 10*3/uL [facility] Eosinophils/100 WBC (Bld) 0.0 % 0.0 - 7.0 % [facility] Erythrocyte distribution width (RBC) [Ratio] 15.9 % High 11.0 - 14.8 % [facility] Hematocrit (Bld) [Volume fraction] 37.9 % 34.3 - 47.9 % [facility] Hemoglobin (Bld) [Mass/Vol] 12.5 g/dL 12.0 - 16.0 g/dL [facility] Immature granulocytes (Bld) [#/Vol] 0.11 10*3/uL High [facility] Immature granulocytes/100 WBC (Bld) 0.5 % 0.0 - 1.2 % [facility] Interpretation and review of laboratory results Abnormal [facility] Lymphocytes (Bld) [#/Vol] 1.85 10*3/uL [facility] Lymphocytes/100 WBC (Bld) 9.2 % Low 17.9 - 49.6 % [facility] MCH (RBC) [Entitic mass] 28.3 pg [facility] MCHC (RBC) [Mass/Vol] 33.0 g/dL 30.8 - 35.3 g/dL [facility] MCV (RBC) [Entitic vol] 85.7 fL T [facility] Monocytes (Bld) [#/Vol] 0.61 10*3/uL [facility] Monocytes/100 WBC (Bld) 3.0 % 0.0 - 12.0 % [facility] Neutrophils (Bld) [#/Vol] 17.53 10*3/uL High [facility] Neutrophils/100 WBC (Bld) 87.2 % High 38.1 - 75.5 % [facility] Platelet mean volume (Bld) [Entitic vol] 9.9 fL [facility] Platelets (Bld) [#/Vol] 401 10*3/uL [facility] RBC (Bld) [#/Vol] 4.42 10*6/uL [facility] WBC (Bld) [#/Vol] 20.1 10*3/uL High [facility] Magnesiumon 09-26-2023 Magnesium [Mass/Vol] 1.7 mg/dL Low 1.8 - 2 .5 mg/dL [facility] Magnesium [Mass/Vol]on 09-26 hCG Quant <1 Normal [facility] Comment on above: Order Comment: Pregn efrain Reference Ranges Negative = < 5 mIU/ml Positive = > OR EQUAL TO 5 mIU/ml The concentration of HCG rises rapidly during early . A maximum level of 5,000 to 200,000 mIU/ML is reached at 6-8 weeks. This is followed by a slow decline to levels of 1,000 to 50,000 mIU/ML during the third trimester. This test should be used only for the diagnosis and monitoring of . It should not be used for monitoring of neoplastic conditions including gestational trophoblastic disease (partial mole, complete hydatidiform mole, choriocarcinoma) or other tumors. For monitoring of neoplastic disease a Beta subunit HCG test should be ordered. Results obtained using different immunoassay methods are not interchangeable. Patient results should not be trended using values obtained with a different immunoassay method. Performed By: #### 1 9123-9 #### [facility] [address] [place] [address] No Panel Informationon 09-26 Interpretation and review of laboratory results Abnormal [facility] CT CERVICAL SPINE WO CONTRAS Ton 08-05-2023 CT CERVICAL SPINE WO CONTRAST EXAMINATION TYPE: CT CERVICAL SPINE WO CONTRAST DATE OF EXAM : 08/05/2023 1:57 AM HISTORY: fell hit back of neck; r/o C-spine injury, COMPARISON: NONE FINDINGS: Normal osseous mineralization and alignment. No acute fracture or subluxation. Posterior elements are unremarkable. Mild multilevel degenerative disc disease. Space between the anterior arch of C1 and the dens is appropriate. Images of the skull base and upper lobes are unremarkable. No spinal stenosis or neural foraminal stenosis. No soft tissue or airway abnormality. Limited by large body habitus. IMPRESSION: No acute fracture. -------- FINAL REPORT -------- Dictated By: Eric Eden Dictated Date: 08/05/2023 02:51 Assigned Physician: Eric Eden Reviewed and Electronically Signed By: Eric Eden Signed Date: 08/05/2023 02:56 Workstation ID: [id number] Transcribed By: Self Edit Transcribed Date: 08/05/2023 02:51 Normal [facility] CT CHEST WO CONTRASTon 08-05 CT CHEST WO CONTRAST EXAMINATION TYPE: C T CHEST WO CONTRAST DATE OF EXAM : 08/05/2023 1:57 AM HISTORY: fell hit right rib; r/o rib fracture, COMPARISON: NONE FINDINGS: No suspicious pulmonary nodule, pleural effusion, or consolidation. No pneumothorax. No airway abnormality. Thyroid gland is unremarkable. Heart is not enlarged and there is no pericardial effusion. Aorta and pulmonary arteries are normal in caliber. No enlarged lymph nodes. Images of the upper abdomen show diffuse hepatic steatosis and hepatomegaly. Cholecystectomy. No displaced rib fracture. IMPRESSION: 1. No acute abnormality. 2. No displaced rib fracture. -------- FINAL REPORT -------- Dictated By: Eric Eden Dictated Date: 08/05/2023 02:57 Assigned Physician: Eric Eden Reviewed and Electronically Signed By: Eric Eden Signed Date: 08/05/2023 03:00 Workstation ID: [id number] Transcribed By: Self Edit Transcribed Date: 08/05/2023 02:57 Normal [facility] CT Cervical Spine wo Contras ton 08-05-2023 No acute fracture. -------- FINAL REPORT -------- Dictated By: Eric Eden Dictated Date: 08/05/2023 02:51 Assigned Physician: Eric Eden Reviewed and Electronically Signed By: Eric Eden Signed Date: 08/05/2023 02:56 Workstation ID: [id number] Transcribed By: Self Edit Transcribed Date: 08/05/2023 02:51 POWERSCRIBE EXAMINATION TYPE: CT CERVICAL SPINE WO CONTRAST DATE OF EXAM : 08/05/2023 1:57 AM HISTORY: fell hit back of neck; r/o C-spine injury, COMPARISON: NONE FINDINGS: Normal osseous mineralization and alignment. No acute fracture or subluxation. Posterior elements are unremarkable. Mild multilevel degenerative disc disease. Space between the anterior arch of C1 and the dens is appropriate. Images of the skull base and upper lobes are unremarkable. No spinal stenosis or neural foraminal stenosis. No soft tissue or airway abnormality. Limited by large body habitus. POWERSCRIBE Eric Eden MD - 08/05/2023 EXAMINATION TYPE: CT CERVICAL SPINE WO CONTRAST DATE OF EXAM : 08/05/2023 1:57 AM HISTORY: fell hit back of neck; r/o C-spine injury, COMPARISON: NONE FINDINGS: Normal osseous mineralization and alignment. No acute fracture or subluxation. Posterior elements are unremarkable. Mild multilevel degenerative disc disease. Space between the anterior arch of C1 and the dens is appropriate. Images of the skull base and upper lobes are unremarkable. No spinal stenosis or neural foraminal stenosis. No soft tissue or airway abnormality. Limited by large body habitus. IMPRESSION: No acute fracture. -------- FINAL REPORT -------- Dictated By: Eric Eden Dictated Date: 08/05/2023 02:51 Assigned Physician: Eric Eden Reviewed and Electronically Signed By: Eric Eden Signed Date: 08/05/2023 02:56 Workstation ID: [id number] Transcribed By: Self Edit Transcribed Date: 08/05/2023 02:[address] [facility] [address] Cervical Spine wo Contras tOrdered By: Eric Eden on 08-05-2023 [facility] Work Phone: CT Chest wo Contraston 08-05 1. No acute abnormality. 2. No displaced rib fracture. -------- FINAL REPORT -------- Dictated By: Eric Eden Dictated Date: 08/05/2023 02:57 Assigned Physician: Eric Eden Reviewed and Electronically Signed By: Eric Eden Signed Date: 08/05/2023 03:00 Workstation ID: [id number] Transcribed By: Self Edit Transcribed Date: 08/05/2023 02:57 POWERSCRIBE EXAMINATION TYPE: CT CHEST WO CONTRAST DATE OF EXAM : 08/05/2023 1:57 AM HISTORY: fell hit right rib; r/o rib fracture, COMPARISON: NONE FINDINGS: No suspicious pulmonary nodule, pleural effusion, or consolidation. No pneumothorax. No airway abnormality. Thyroid gland is unremarkable. Heart is not enlarged and there is no pericardial effusion. Aorta and pulmonary arteries are normal in caliber. No enlarged lymph nodes. Images of the upper abdomen show diffuse hepatic steatosis and hepatomegaly. Cholecystectomy. No displaced rib fracture. POWERSCRIBE Eric Eden MD - 08/05/2023 EXAMINATION TYPE: CT CHEST WO CONTRAST DATE OF EXAM : 08/05/2023 1:57 AM HISTORY: fell hit right rib; r/o rib fracture, COMPARISON: NONE FINDINGS: No suspicious pulmonary nodule, pleural effusion, or consolidation. No pneumothorax. No airway abnormality. Thyroid gland is unremarkable. Heart is not enlarged and there is no pericardial effusion. Aorta and pulmonary arteries are normal in caliber. No enlarged lymph nodes. Images of the upper abdomen show diffuse hepatic steatosis and hepatomegaly. Cholecystectomy. No displaced rib fracture. IMPRESSION: 1. No acute abnormality. 2. No displaced rib fracture. -------- FINAL REPORT -------- Dictated By: Eric Eden Dictated Date: 08/05/2023 02:57 Assigned Physician: Eric Eden Reviewed and Electronically Signed By: Eric Eden Signed Date: 08/05/2023 03:00 Workstation ID: [id number] Transcribed By: Self Edit Transcribed Date: 08/05/2023 02:[address] [facility] [address] THORACIC SPINE WO CONTRAS Ton 08-05-2023 CT THORACIC SPINE WO CONTRAST EXAMINATION TYPE: CT THORACIC SPINE WO CONTRAST DATE OF EXAM : 08/05/2023 1:57 AM HISTORY: fell hit upper back; r/o T-Spine injury, COMPARISON: NONE FINDINGS: The vertebral body heights are maintained. No compression fracture or subluxation. Posterior elements are unremarkable. Mild multilevel degenerative disc disease. No spinal stenosis or neural foraminal stenosis. No prevertebral or paravertebral hematoma. Asymmetric left thyroid lobe enlargement. No abnormality of the visualized portions of the lung parenchyma and mediastinum. Hepatic steatosis and hepatomegaly. IMPRESSION: No acute fracture. -------- FINAL REPORT -------- Dictated By: Eric Eden Dictated Date: 08/05/2023 03:00 Assigned Physician: Eric Eden Reviewed and Electronically Signed By: Eric Eden Signed Date: 08/05/2023 03:06 Workstation ID: [id number] Transcribed By: Self Edit Transcribed Date: 08/05/2023 03:00 Normal [facility] CT Thoracic Spine wo Contras ton 08-05-2023 No acute fracture. -------- FINAL REPORT -------- Dictated By: Eric Eden Dictated Date: 08/05/2023 03:00 Assigned Physician: Eric Eden Reviewed and Electronically Signed By: Eric Eden Signed Date: 08/05/2023 03:06 Workstation ID: [id number] Transcribed By: Self Edit Transcribed Date: 08/05/2023 03:00 POWERSCRIBE EXAMINATION TYPE: CT THORACIC SPINE WO CONTRAST DATE OF EXAM : 08/05/2023 1:57 AM HISTORY: fell hit upper back; r/o T-Spine injury, COMPARISON: NONE FINDINGS: The vertebral body heights are maintained. No compression fracture or subluxation. Posterior elements are unremarkable. Mild multilevel degenerative disc disease. No spinal stenosis or neural foraminal stenosis. No prevertebral or paravertebral hematoma. Asymmetric left thyroid lobe enlargement. No abnormality of the visualized portions of the lung parenchyma and mediastinum. Hepatic steatosis and hepatomegaly. POWERSCRIBE Eric Eden MD - 08/05/2023 EXAMINATION TYPE: CT THORACIC SPINE WO CONTRAST DATE OF EXAM : 08/05/2023 1:57 AM HISTORY: fell hit upper back; r/o T-Spine injury, COMPARISON: NONE FINDINGS: The vertebral body heights are maintained. No compression fracture or subluxation. Posterior elements are unremarkable. Mild multilevel degenerative disc disease. No spinal stenosis or neural foraminal stenosis. No prevertebral or paravertebral hematoma. Asymmetric left thyroid lobe enlargement. No abnormality of the visualized portions of the lung parenchyma and mediastinum. Hepatic steatosis and hepatomegaly. IMPRESSION: No acute fracture. -------- FINAL REPORT -------- Dictated By: Eric Eden Dictated Date: 08/05/2023 03:00 Assigned Physician: Eric Eden Reviewed and Electronically Signed By: Eric Eden Signed Date: 08/05/2023 03:06 Workstation ID: [id number] Transcribed By: Self Edit Transcribed Date: 08/05/2023 03:00 [facility] No Panel Informationon 08-05 No acute abnormality. -------- FINAL REPORT -------- Dictated By: Eric Eden Dictated Date: 08/05/2023 02:27 Assigned Physician: Eric Eden Reviewed and Electronically Signed By: Eric Eden Signed Date: 08/05/2023 02:29 Workstation ID: [id number] Transcribed By: Self Edit Transcribed Date: 08/05/2023 02:27 POWERSCRIBE EXAMINATION TYPE: XR SHOULDER 2+ VIEWS RIGHT DATE OF EXAM : 08/05/2023 2:05 AM HISTORY: right shoulder pain s/p fall; COMPARISON: 04/06/2012 FINDINGS: Normal osseous mineralization and alignment. No acute fracture or subluxation. No cortical erosive change or periosteal reaction. Acromioclavicular and coracoclavicular spaces are maintained. Images of the right lung and ribs are unremarkable. POWERSCRIBE Erci Eden MD - 08/05/2023 EXAMINATION TYPE: XR SHOULDER 2+ VIEWS RIGHT DATE OF EXAM : 08/05/2023 2:05 AM HISTORY: right shoulder pain s/p fall; COMPARISON: 04/06/2012 FINDINGS: Normal osseous mineralization and alignment. No acute fracture or subluxation. No cortical erosive change or periosteal reaction. Acromioclavicular and coracoclavicular spaces are maintained. Images of the right lung and ribs are unremarkable. IMPRESSION: No acute abnormality. -------- FINAL REPORT -------- Dictated By: Eric Eden Dictated Date: 08/05/2023 02:27 Assigned Physician: Eric Eden Reviewed and Electronically Signed By: Eric Eden Signed Date: 08/05/2023 02:29 Workstation ID: [id number] Transcribed By: Self Edit Transcribed Date: 08/05/2023 02:27 [facility] Radiology Study observation (narrative) [facility] Radiology Study observation (narrative) [facility] XR SHOULDER 2+ VIEWS RIGHTon 08-05-2023 XR SHOULDER 2+ VIEWS RIGHT EXAMINATION TYPE: XR SHOULDER 2+ VIEWS RIGHT DATE OF EXAM : 08/05/2023 2:05 AM HISTORY: right shoulder pain s/p fall; COMPARISON: 04/06/2012 FINDINGS: Normal osseous mineralization and alignment. No acute fracture or subluxation. No cortical erosive change or periosteal reaction. Acromioclavicular and coracoclavicular spaces are maintained. Images of the right lung and ribs are unremarkable. IMPRESSION: No acute abnormality. -------- FINAL REPORT -------- Dictated By: Eric Eden Dictated Date: 08/05/2023 02:27 Assigned Physician: Eric Eden Reviewed and Electronically Signed By: Eric Eden Signed Date: 08/05/2023 02:29 Workstation ID: [id number] Transcribed By: Self Edit Transcribed Date: 08/05/2023 02:27 Normal [facility] CBC with differentialon 07-23 Erythrocyte distribution width (RBC) [Ratio] 16.0 % 11.0 - 16.3 % [facility] Hematocrit (Bld) [Volume fraction] 43.0 % 31.1 - 57.4 % [facility] Hemoglobin (Bld) [Mass/Vol] 14.5 g/dL 13.0 - 17.0 g/dL [facility] Interpretation and review of laboratory results Abnormal [facility] Lymphocyte # POCT 3.5 [facility] Lymphocytes/100 WBC (Bld) 19.6 % Low 25 - 57 % [facility] MCH POCT 28.5 [facility] MCHC (RBC) [Mass/Vol] 33.7 g/dL 32.7 - 36.7 g/dL [facility] MCV POCT 84.5 [facility] MPV POCT 10.2 [facility] MXD # POCT 1.3 [facility] MXD % POCT 7.0 % 1.2 - 11.4 % [facility] Neutrophil # POCT 13.3 High [facility] Neutrophils/100 WBC (Bld) 73.4 % 37 - 75 % [facility] Platelet Ab Ql (S) 467 K/uL High 166 - 400 K/uL [facility] RBC POCT 5.09 [facility] WBC POCT 18.1 High [facility] HCG ( test) Ql (U)O rdered By: Yara Ramirez on 08-04-2023 Beta HCG ( test) Ql (U) Negative Negative [facility] Beta HCG ( test) Ql (U) Yes Yes [facility] EXPIRATION DATE POC [id number] [facility] Interpretation and review of laboratory results Normal [facility] LOT NUMBER POC [id number] [facility] POCT BASIC METABOLIC PROFILE on 08-04-2023 Calcium [Mass/Vol] 10.0 mg/dL Normal 8.9-10.3 [facility] Comment on above: Performed By: #### L [id number] ####[facility] [id number] [place] [address] Chloride [Moles/Vol] 100 mmol/L Normal 98-107 [facility] Comment on above: Performed By: #### L [id number] ####[facility] ([facility]) [id number] [place] [address] CO2 [Moles/Vol] 23 mmol/L Normal 22-32 [facility] Comment on above: Performed By: #### L [id number] ####[facility] ([facility]) [id number] [place] [address] Creatinine [Mass/Vol] 0.7 mg/dL Normal 0.6-1.3 [facility] Comment on above: Performed By: #### L [id number] ####[facility] ([facility]) [id number] [place] [address] GFR/1.73 sq M.predicted among non-blacks MDRD (S/P/Bld) [Vol rate/Area] 112 mL/min/{1.73_m2} Normal >=60 [facility] Comment on above: Performed By: #### L [id number] ####[facility] ([facility]) [id number] [place] [address] Glucose [Mass/Vol] 148 mg/dL High 70-99 [facility] Comment on above: Performed By: #### L [id number] ####[facility] ([facility]) [id number] [place] [address] Potassium [Moles/Vol] 3.6 mmol/L Normal 3.6-5.1 [facility] Comment on above: Performed By: #### L [id number] ####[facility] ([facility]) [id number] [place] [address] Sodium [Moles/Vol] 143 mmol/L Normal 136-145 [facility] Comment on above: Performed By: #### L [id number] ####[facility] ([facility]) [id number] [place] [address] Urea nitrogen [Mass/Vol] 9 mg/dL Normal 8-20 [facility] Comment on above: Performed By: #### L [id number] ####[facility] ([facility]) [id number] [place] [address] POCT Basic metabolic profile on 08-04-2023 Calcium [Mass/Vol] 10.0 mg/dL 8.9 - 10. 3 mg/dL [facility] Chloride [Moles/Vol] 100 mmol/L 98 - 10 7 mmol/L [facility] CO2 [Moles/Vol] 23 mmol/L 22 - 32 mmol/L [facility] Creatinine [Mass/Vol] 0.7 mg/dL 0.6 - 1.3 mg/dL [facility] GFR/1.73 sq M.predicted among non-blacks MDRD (S/P/Bld) [Vol rate/Area] 112 mL/min/{1.73_m2} - PINF [facility] Glucose [Mass/Vol] 148 mg/dL High 70 - 99 mg/dL [facility] Interpretation and review of laboratory results Abnormal [facility] Potassium [Moles/Vol] 3.6 mmol/L 3.6 - 5.1 mmol/L [facility] Sodium [Moles/Vol] 143 mmol/L 136 - 145 mmol/L [facility] Urea nitrogen [Mass/Vol] 9 mg/dL 8 - 20 mg/dL [facility] POCT CBC WITH DIFFERENTIALon 08-04-2023 Erythrocyte distribution width (RBC) [Ratio] 16.0 % Normal 11.0-16.3 [facility] Comment on above: Performed By: #### L [id number] #### [facility] ([facility]) [address] [place] [address] Hematocrit (Bld) [Volume fraction] 43.0 % Normal 31.1-57.4 [facility] Comment on above: Performed By: #### L [id number] #### [facility] [address] [place] [address] Hemoglobin (Bld) [Mass/Vol] 14.5 g/dL Normal 13.0-17.0 [facility] Comment on above: Performed By: #### L [id number] #### [facility] [address] [place] [address] Lymphocytes (Bld) [#/Vol] 3.5 10*3/uL Normal 1.0-4.8 [facility] Comment on above: Performed By: #### L [id number] #### [facility] [address] [place] [address] Lymphocytes/100 WBC (Bld) 19.6 % Low 25-57 [facility] Comment on above: Performed By: #### L [id number] #### [facility] [address] [place] [address] MCH POCT 28.5 pcg Normal 27.4-35.7 [facility] Comment on above: Performed By: #### L [id number] #### [facility] [address] [place] [address] MCHC (RBC) [Mass/Vol] 33.7 g/dL Normal 32.7-36.7 [facility] Comment on above: Performed By: #### L [id number] #### [facility] [address] [place] [address] MCV (RBC) [Entitic vol] 84.5 fL Normal 82.5-102.0 [facility] Comment on above: Performed By: #### L [id number] #### [facility] [address] [place] [address] MXD # POCT 1.3 K/mcL Normal 0.1-1.3 [facility] Comment on above: Performed By: #### L [id number] #### [facility] [address] [place] [address] MXD % POCT 7.0 % Normal 1.2-11.4 [facility] Comment on above: Performed By: #### L [id number] #### [facility] [address] [place] [address] Neutrophils (Bld) [#/Vol] 13.3 10*3/uL High 1.8-7.7 [facility] Comment on above: Performed By: #### L [id number] #### [facility] [address] [place] [address] Neutrophils/100 WBC (Bld) 73.4 % Normal 37-75 [facility] Comment on above: Performed By: #### L [id number] #### [facility] [address] [place] [address] Platelet mean volume (Bld) [Entitic vol] 10.2 fL Normal 8.5-13.5 [facility] Comment on above: Performed By: #### L [id number] #### [facility] [address] [place] [address] Platelet POCT 467 K/uL High 166-400 [facility] Comment on above: Performed By: #### L [id number] #### [facility] [address] [place] [address] RBC (Bld) [#/Vol] 5.09 10*6/uL Normal 4.30-5.70 [facility] Comment on above: Performed By: #### L [id number] #### [facility] [address] [place] [address] WBC (Bld) [#/Vol] 18.1 10*3/uL High 4.5-13.5 [facility] Comment on above: Performed By: #### L [id number] #### [facility] [address] [place] [address] POCT LIVER PROFILEon 023 Albumin [Mass/Vol] 4.5 g/dL Normal 3.5-4.8 [facility] Comment on above: Performed By: #### L [id number] #### [facility] [address] [place] [address] ALP POCT 89 units/L Normal 32-91 [facility] Comment on above: Performed By: #### L [id number] #### [facility] [address] [place] [address] ALT [Catalytic activity/Vol] 10 U/L Normal 7-52 [facility] Comment on above: Performed By: #### L [id number] #### [facility] [address] [place] [address] Amylase [Catalytic activity/Vol] 47.0 U/L Normal 26-100 [facility] Comment on above: Performed By: #### L [id number] #### [facility] [address] [place] [address] AST [Catalytic activity/Vol] 25 U/L Normal 15-41 [facility] Comment on above: Performed By: #### L [id number] #### [facility] [address] [place] [address] Bilirubin [Mass/Vol] 1.0 mg/dL Normal 0.3-1.2 [facility] Comment on above: Performed By: #### L [id number] #### [facility] [address] [place] [address] GGT POCT 36 unit/L Normal 7-50 [facility] Comment on above: Performed By: #### L [id number] #### [facility] [address] [place] [address] Total Protein POCT 8 g/L High 6.1-7.9 [facility] Comment on above: Performed By: #### L [id number] #### [facility] [address] [place] [address] POCT Liver profileon 023 Albumin BCP dye (Bld) [Mass/Vol] 4.5 g/dL 3.5 - 4.8 g/dL [facility] ALP POCT 89 [facility] ALT [Catalytic activity/Vol] 10 U/L [facility] Amylase POCT 47.0 [facility] AST [Catalytic activity/Vol] 25 U/L [facility] Bilirubin [Mass/Vol] 1.0 mg/dL 0.3 - 1 .2 mg/dL [facility] GGT POCT 36 [facility] Interpretation and review of laboratory results Abnormal [facility] Protein [Mass/Vol] 8 g/L High 6.1 - 7.9 g/L [facility] Urinalysis macro (dipstick) panel (U)on 08-04-2023 Bilirubin Urine POCT Large Abnormal Negative [facility] Comment on above: Performed By: #### 2 4357-6 #### [facility] [address] [place] [address] Blood Urine POCT Large Abnormal Negative [facility] Comment on above: Performed By: #### 2 4357-6 #### [facility] [address] [place] [address] Clarity Urine POCT Turbid Abnormal Clear [facility] Comment on above: Performed By: #### 2 4357-6 #### [facility] [address] [place] [address] Color Urine POCT Red Abnormal Yellow, Light Yellow [facility] Comment on above: Performed By: #### 2 4357-6 #### [facility] [address] [place] [address] Glucose Urine POCT Negative Normal Negative [facility] Comment on above: Performed By: #### 2 4357-6 #### [facility] [address] [place] [address] Ketones Urine POCT 40. mg/dL Abnormal Negative [facility] Comment on above: Performed By: #### 2 4357-6 #### [facility] [address] [place] [address] Leukocyte Esterase POCT Negative Normal Negative rain [facility] Comment on above: Performed By: #### 2 4357-6 #### [facility] [address] [place] [address] Nitrite POCT Positive Abnormal Negative [facility] Comment on above: Performed By: #### 2 4357-6 #### [facility] [address] [place] [address] pH Urine POCT 5.5 Normal 5.0-8.5 [facility] [place] [place] Comment on above: Performed By: #### 2 4357-6 #### [facility] [address] [place] [address] Protein Urine POCT >=300 Abnormal Negative [facility] Comment on above: Performed By: #### 2 4357-6 #### [facility] [address] [place] [address] Specific [place] Urine POCT 1.030 Normal 1.005-1.030 [facility] Comment on above: Performed By: #### 2 4357-6 #### [facility] [address] [place] [address] Urobilinogen POCT 1.0 EU/dL Normal 0.2 - 1.0 [facility] Comment on above: Performed By: #### 2 4357-6 #### [facility] [address] [place] [address] Bilirubin Ql (U) Large Abnormal Negative [facility] Blood Visual Ql (U) Large Abnormal Negative eryth/mcL [facility] Clarity (U) Turbid Abnormal Clear [facility] Color (U) Red Abnormal Yellow, Light Yellow [facility] Color (U) Negative Negative [facility] Color (U) 5.5 5.0 - 8.5 [facility] Glucose Test strip (U) [Mass/Vol] Negative Negative mg/dL [facility] Interpretation and review of laboratory results Abnormal [facility] Ketones (U) [Mass/Vol] 40 mg/dL Abnormal Negat aden mg/dL [facility] Nitrite (Unsp spec) [Mass/Vol] Positive Abnormal Negative [facility] Protein (U) [Mass/Vol] mg/dL Abnormal Negat aden mg/dL [facility] Specific gravity (U) [Rel density] 1.030 1.005 - 1.030 [facility] Urobilinogen Qn (U) 1.0 {Mayito'U}/dL 0. 2 - 1.0 EU/dL [facility] FSHon 06-17-2023 Follitropin Qn 7.7 m[IU]/mL mIU/mL [facility] Comment on above: Reference Range: Adult Male: <18.1 mIU/mL Adult Female: Follicular: 2.5-10.2 mIU/mL Midcycle: 3.4-33.4 mIU/mL Luteal: 1.5-9.1 mIU/mL : <0.3 mIU/mL Post Menopausal: 23.0-116.3 mIU/mL [facility] FSH 7.7 mIU/mL Normal [facility] Comment on above: Result Comment: Refe rence Range: Adult Male: <18.1 mIU/mL Adult Female: Follicular: 2.5-10.2 mIU/mL Midcycle: 3.4-33.4 mIU/mL Luteal: 1.5-9.1 mIU/mL : <0.3 mIU/mL Post Menopausal: 23.0-116.3 mIU/mL Performed By: #### S YPHT, RPR, HBSAG #### [facility] (DEFAULT) [address] [place] [address] HEMOGLOBIN A1Con 06-17-2023 Average glucose Estimated from glycated hemoglobin (Bld) [Mass/Vol] 111 mg/dL [facility] HbA1c (Bld) [Mass fraction] 5.5 % 4.7 - 5.6 % [facility] Glucose [Mass/Vol] 111 mg/dL Normal [facility] Comment on above: Performed By: #### A 1CB #### [facility] (DEFAULT) [address] [place] [address] Hemoglobin A1C HPLC 5.5 % Normal 4.7-5.6 [facility] Comment on above: Performed By: #### A 1CB #### [facility] (DEFAULT) [address] [place] [address] HEPATITIS B SURFACE ANTIGENO rdered By: Iram Mcgill on 06-17-2023 HBV surface Ag Ql (S) Negative Negative [facility] Interpretation and review of laboratory results Normal [facility] HEPATITIS B SURFACE ANTIGENo n 06-17-2023 Hepatitis B Surface Ag Negative Normal Negative [facility] Comment on above: Performed By: #### S YPHT, RPR, HBSAG #### [facility] (DEFAULT) [address] [place] [address] HEPATITIS C ANTIBODYon 06-17 HCV Ab Ql (S) Negative Negative [facility] Interpretation and review of laboratory results Normal [facility] Hepatitis C Antibody Negative Normal Negative [facility] Comment on above: Performed By: #### S YPHT, RPR, HBSAG #### [facility] (DEFAULT) [address] [place] [address] HIV 1 AND 2 ANTIBODIES/P24 A NTIGENon 06-17-2023 HIV 1+2 Ab+HIV1 p24 Ag IA Ql Non-Reactive Non Reactive [facility] Interpretation and review of laboratory results Normal [facility] HIV-1/HIV-2 Ab With p24 Antigen Non-Reactive Normal Non Reactive [facility] Comment on above: Performed By: #### S YPHT, RPR, HBSAG #### [facility] (DEFAULT) [address] [place] [address] LHon 06-17-2023 Lutropin Qn 6.04 m[IU]/mL mIU/mL [facility] Comment on above: Reference Range: Adult Female: Follicular phase: 1.9-12.5 mIU/mL Midcycle peak: 8.7-76.3 mIU/mL Luteal phase: 0.5-16.9 mIU/mL : <0.1-1.5 mIU/mL Postmenopausal: 15.9-54.0 mIU/mL Contraceptives: 0.7-5.6 mIU/mL Adult Male: >19-70 years: 1.5-9.3 mIU/mL >70 years: 3.1-4.6 mIU/mL [facility] LH 6.04 mIU/mL Normal [facility] Comment on above: Result Comment: Refe rence Range: Adult Female: Follicular phase: 1.9-12.5 mIU/mL Midcycle peak: 8.7-76.3 mIU/mL Luteal phase: 0.5-16.9 mIU/mL : <0.1-1.5 mIU/mL Postmenopausal: 15.9-54.0 mIU/mL Contraceptives: 0.7-5.6 mIU/mL Adult Male: >19-70 years: 1.5-9.3 mIU/mL >70 years: 3.1-4.6 mIU/mL Performed By: #### L H, PROL, FSH #### [facility] (DEFAULT) [address] [place] [address] PROLACTINon 06-17-2023 Prolactin [Mass/Vol] 4.1 ng/mL [facility] Comment on above: Reference Range: Females Non: 2.8-29.2 ng/mL : 9.7-208.5 ng/mL Postmenopausal: 1.8-20.3 ng/mL <2 years: 3.3-14.7 ng/mL 2-5 years: 1.0-12.8 ng/mL 6-10 years: 1.2-11.4 ng/mL 11-17 years: 1.4-14.3 ng/mL Males: 2.1-17.7 ng/mL [facility] Prolactin 4.1 ng/mL Normal [facility] Comment on above: Result Comment: Refe rence Range: Females Non: 2.8-29.2 ng/mL : 9.7-208.5 ng/mL Postmenopausal: 1.8-20.3 ng/mL <2 years: 3.3-14.7 ng/mL 2-5 years: 1.0-12.8 ng/mL 6-10 years: 1.2-11.4 ng/mL 11-17 years: 1.4-14.3 ng/mL Males: 2.1-17.7 ng/mL Performed By: #### L H, PROL, FSH #### [facility] (DEFAULT) [address] [address] RPRon 06-17-2023 Reagin Ab RPR Ql (S) Non-Reactive Normal Non Reactive [facility] Comment on above: Performed By: #### S YPHT, RPR, HBSAG #### [facility] (DEFAULT) [address] [address] SHBGon 06-17-2023 Free Testosterone 0.43 ng/dL Normal 0.00-1.08 [facility] Comment on above: Performed By: #### S YPHT, RPR, HBSAG #### [facility] (DEFAULT) [address] [address] Sex Hormone Binding Globulin 51.16 nmol/L Normal 18.00-144.00 [facility] Comment on above: Performed By: #### S YPHT, RPR, HBSAG #### [facility] (DEFAULT) [address] [address] SYPHILIS AB W/REFLEX RPRon 1 Syphilis IgG/IGM Total Reactive Abnormal Non Reactive [facility] Comment on above: Result Comment: Refl exed to RPR and/or TP-PA result for further testing. Performed By: #### S YPHT, RPR, HBSAG #### [facility] (DEFAULT) [address] [address] T. pallidum Ab Ql (S)on 05-24 Interpretation and review of laboratory results Abnormal [facility] T. pallidum IgG Ql (S) Reactive Abnormal Non Reactive [facility] Comment on above: Reflexed to RPR and/ or TP-PA result for further testing. [facility] T.PALLIDUM AB BY TP-PAon Syphilis Ab, TP-PA, S Positive Abnormal Negative [facility] Comment on above: Result Comment: Resu lt suggests infection with T. pallidum at some time in the past, but does not distinguish between treated and untreated syphilis as treponemal antibodies can remain elevated despite proper treatment. RPR testing is recommended to distinguish between treated and untreated syphilis. For additional information on interpretation of the syphilis reverse algorithm and results, see: [email or web address]-[email or web address] ADDITIONAL INFORMATION This test is intended to be used as a confirmatory test on samples that have been tested by another syphilis test. Test Performed by: [place] [address] Housekeeping Room Attendant: Isabel Turner M.D. Ph.D.; CLIA# [id number] Performed By: #### S YPHT, RPR, HBSAG #### [facility] (DEFAULT) [address] [place] [address] TESTOSTERONEon 06-17-2023 Testosterone [Mass/Vol] 32 ng/dL Normal 8-60 O [facility] Comment on above: Performed By: #### T ESTOS #### [facility] (DEFAULT) [address] [place] [address] H. PYLORI UREA BREATH TESTOr dered By: Aaron Larkin on 06-11-2023 CO2 post dose urea Ql (Exhl gas) Negative Negative [facility] Comment on above: Negative for active H. pylori infection by urea breath test. Interpretation and review of laboratory results Normal [facility] H. PYLORI UREA BREATH TESTon 06-10-2023 H.Pylori Urea Breath Test Negative Normal Negative [facility] Comment on above: Order Comment: Colle ct using BreathID collection kit (stocked at URL, please call [phone] for supplies). Collection performed in clinic only, phlebotomy sites do not perform collection or stock kits. Result Comment: Nega tive for active H. pylori infection by urea breath test. Performed By: #### S YPHT, RPR, HBSAG #### [facility] (DEFAULT) [address] [place] [address] TSH W/FT4 REFLEXon 3 Interpretation and review of laboratory results Normal [facility] TSH Qn 0.818 m[IU]/L [facility] TSH 0.818 uIU/mL Normal 0.550-4.780 [facility] Comment on above: Performed By: #### S YPHT, RPR, HBSAG #### [facility] (DEFAULT) [address] [place] [address] Hemogram and platelets WO di fferential panel (Bld)on 05-31-2023 Basophils (Bld) [#/Vol] 0.01 10*3/uL Normal 0.00-0.20 [facility] Comment on above: Performed By: #### 2 4317-0 #### [facility] [address] [place] [address] Basophils/100 WBC (Bld) 0.1 % Normal 0.0-2.0 M [facility] Comment on above: Performed By: #### 2 4317-0 #### [facility] [address] [place] [address] [place] [address] Eosinophils (Bld) [#/Vol] 0.00 10*3/uL Normal 0.00-0.70 [facility] Comment on above: Performed By: #### 2 4317-0 #### [facility] [address] [place] [address] Eosinophils/100 WBC (Bld) 0.0 % Normal 0.0-7.0 [facility] Comment on above: Performed By: #### 2 4317-0 #### [facility] [address] [place] [address] Erythrocyte distribution width (RBC) [Ratio] 14.9 % High 11.0-14.8 [facility] Comment on above: Performed By: #### 2 4317-0 #### [facility] [address] [place] [address] Hematocrit (Bld) [Volume fraction] 39.6 % Normal 34.3-47.9 [facility] Comment on above: Performed By: #### 2 4317-0 #### [facility] [address] [place] [address] Hemoglobin (Bld) [Mass/Vol] 13.2 g/dL Normal 12.0-16.0 [facility] Comment on above: Performed By: #### 2 4317-0 #### [facility] [address] [place] [address] Immature granulocytes (Bld) [#/Vol] 0.04 10*3/uL Normal 0.00-0.10 [facility] Comment on above: Performed By: #### 2 4317-0 #### [facility] [address] [place] [address] Immature granulocytes/100 WBC (Bld) 0.3 % Normal 0.0-1.2 [facility] Comment on above: Performed By: #### 2 4317-0 #### [facility] [address] [place] [address] Lymphocytes (Bld) [#/Vol] 2.16 10*3/uL Normal 1.00-4.80 [facility] Comment on above: Performed By: #### 2 4317-0 #### [facility] [address] [place] [address] Lymphocytes/100 WBC (Bld) 14.0 % Low 17.9-49.6 [facility] Comment on above: Performed By: #### 2 4317-0 #### [facility] [address] [place], [place] [address] [address] MCH 28.2 pcg Normal 27.0-34.0 [facility] Comment on above: Performed By: #### 2 4317-0 #### [facility] [address] [place] [address] [place] [address] MCHC (RBC) [Mass/Vol] 33.3 g/dL Normal 30.8-35.3 [facility] Comment on above: Performed By: #### 2 4317-0 #### [facility] [address] [place] [address], [place] [address] MCV (RBC) [Entitic vol] 84.6 fL Normal 80.0-97.0 M [facility] Comment on above: Performed By: #### 2 431-0 #### [facility] [address] [place] [address] Monocytes (Bld) [#/Vol] 0.54 10*3/uL Normal 0.00-0.90 [facility] Comment on above: Performed By: #### 2 4317-0 #### [facility] [address] [place] [address], [place] [address] Monocytes/100 WBC (Bld) 3.5 % Normal 0.0-12.0 M [facility] Comment on above: Performed By: #### 2 4317-0 #### [facility] [address] [place] [address], [place] [address] Neutrophils Absolute 12.68 K/mcL High 1.80-7.70 [facility] Comment on above: Performed By: #### 2 4317-0 #### [facility] [address] [place] [address] Neutrophils/100 WBC (Bld) 82.1 % High 38.1-75.5 [facility] Comment on above: Performed By: #### 2 4317-0 #### [facility] [address] [place] [address] [place] [address] Platelet mean volume (Bld) [Entitic vol] 10.3 fL Normal 6.2-12.1 [facility] Comment on above: Performed By: #### 2 4317-0 #### [facility] [address] [place] [address] [place] [address] Platelets (Bld) [#/Vol] 415 10*3/uL Normal 142-424 [facility] Comment on above: Performed By: #### 2 4317-0 #### [facility] [address] [place] [address] RBC (Bld) [#/Vol] 4.68 10*6/uL Normal 3.74-5.34 [facility] Comment on above: Performed By: #### 2 4317-0 #### [facility] [address] [place] [address] WBC (Bld) [#/Vol] 15.4 10*3/uL High 4.6-10.2 [facility] Comment on above: Performed By: #### 2 4317-0 #### [facility] [address] [place] [address] Basophils (Bld) [#/Vol] 0.01 10*3/uL [facility] Basophils/100 WBC (Bld) 0.1 % 0.0 - 2.0 % [facility] Eosinophils (Bld) [#/Vol] 0.00 10*3/uL [facility] Eosinophils/100 WBC (Bld) 0.0 % 0.0 - 7.0 % [facility] Erythrocyte distribution width (RBC) [Ratio] 14.9 % High 11.0 - 14.8 % [facility] Hematocrit (Bld) [Volume fraction] 39.6 % 34.3 - 47.9 % [facility] Hemoglobin (Bld) [Mass/Vol] 13.2 g/dL 12.0 - 16.0 g/dL [facility] Immature granulocytes (Bld) [#/Vol] 0.04 10*3/uL [facility] Immature granulocytes/100 WBC (Bld) 0.3 % 0.0 - 1.2 % [facility] Interpretation and review of laboratory results Abnormal [facility] Lymphocytes (Bld) [#/Vol] 2.16 10*3/uL [facility] Lymphocytes/100 WBC (Bld) 14.0 % Low 17.9 - 49.6 % [facility] MCH (RBC) [Entitic mass] 28.2 pg [facility] MCHC (RBC) [Mass/Vol] 33.3 g/dL 30.8 - 35.3 g/dL [facility] MCV (RBC) [Entitic vol] 84.6 fL T [facility] [employer] Monocytes (Bld) [#/Vol] 0.54 10*3/uL [facility] Monocytes/100 WBC (Bld) 3.5 % 0.0 - 12.0 % [facility] Neutrophils (Bld) [#/Vol] 12.68 10*3/uL High [facility] Neutrophils/100 WBC (Bld) 82.1 % High 38.1 - 75.5 % [facility] Platelet mean volume (Bld) [Entitic vol] 10.3 fL [facility] Platelets (Bld) [#/Vol] 415 10*3/uL [facility] RBC (Bld) [#/Vol] 4.68 10*6/uL [facility] WBC (Bld) [#/Vol] 15.4 10*3/uL High [facility] - Specimen inform ationon 05-31-2023 Specimen source Nom (Unsp spec) Hold for add-ons. [facility] Comment on above: Auto resulted. Lactate (Bld) [Mass/Vol]on Lactate [Moles/Vol] 1.8 mmol/L Normal 0.5-2.0 [facility] Comment on above: Performed By: #### 5 9032-3 #### [facility] [address] [place] [address] Interpretation and review of laboratory results Normal [facility] Lactate [Moles/Vol] 1.8 mmol/L 0.5 - 2. 0 mmol/L [employer] No Panel Informationon 05-31 [facility] XR CHEST PA/APon 05-20-2023 XR CHEST PA/AP EXAMINATION: XR CHEST PA/AP 05/20/2023 1:57 pm HISTORY: ORDERING SYSTEM PROVIDED HISTORY: Chest pain, TECHNOLOGIST PROVIDED HISTORY: Illness/Other Reason for exam: chest pain Cancer History: . Surgery, RadiationHistory: . Encounter Type: Initial Additional signs and symptoms: chest pain ORDERING SYSTEM PROVIDED DIAGNOSIS CODES: COMPARISON: 05/25/2019 TECHNIQUE: Semi upright portable chest FINDINGS: An AP view of the chest demonstrates the lungs to be clear and well expanded. Hemidiaphragms are smooth. Heart size is normal. teletypesetter monitor leads are seen on the chest wall. IMPRESSION: Nonacute AP chest. Workstation ID: [id number] Dictated by: ROSIBEL ANNE on WedMay 20, 2023 2:09:03 PM EDT Transcribed by: ROSIBEL ANNE on WedMay 20, 2023 2:09:03 PM EDT Finalized by: ROSIBEL ANNE on WedMay 20, 2023 2:09:03 PM EDT [facility] Comment on above: Order Comment: Injur y/Trauma or Illness?:Illness/Other How long have you had these symptoms (acute/chronic)?:Acute Reason for exam?:chest pain History of cancer?:. Surgeries, chemotherapy, or radiation?:. Type of Exam?:Initial Additional signs and symptoms?:chest pain Basic metabolic 2000 panelon 05-19-2023 Anion gap [Moles/Vol] 9 mmol/L 6 - 18 [facility] Calcium [Mass/Vol] 8.6 mg/dL Low 8.9 - 10. 3 mg/dL [facility] Chloride [Moles/Vol] 104 mmol/L 98 - 10 7 mmol/L [facility] CO2 [Moles/Vol] 25 mmol/L 22 - 32 mmol/L [facility] Creatinine [Mass/Vol] 0.69 mg/dL 0.60 - 1.30 mg/dL [facility] GFR/1.73 sq M.predicted among non-blacks MDRD (S/P/Bld) [Vol rate/Area] 116 mL/min/{1.73_m2} - PINF [facility] Comment on above: Effective May 31, 2022, calculation based on the Chronic Kidney Disease Epidemiology Collaboration (CKD-EPI) equation refit without adjustment for race. Glucose [Mass/Vol] 104 mg/dL High 70 - 99 mg/dL [facility] Potassium [Moles/Vol] 3.5 mmol/L Low 3.6 - 5.1 mmol/L [facility] Sodium [Moles/Vol] 138 mmol/L 136 - 145 mmol/L [facility] Urea nitrogen [Mass/Vol] 3 mg/dL Low 8 - 20 mg/dL [facility] Urea nitrogen/Creatinine [Mass ratio] 4.3 mg/mg Low 12.0 - 20.0 [facility] Lipase [Catalytic activity/Vol] 54 U/L Normal 11-82 [facility] Comment on above: Performed By: #### 2 4321-2 #### [facility] [address] [place] [address] CT HEAD WO CONTRASTon 2022 CT HEAD WO CONTRAST EXAMINATION TYPE: CT HEAD WO CONTRAST DATE OF EXAM : 05/19/2023 8:24 PM HISTORY: Seizure, nontraumatic (Age 18-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 The sinuses are clear and the calvarium is intact. The ventricles are normal in size. There is no mass effect, midline shift or acute hemorrhage. IMPRESSION: Normal brain -------- FINAL REPORT -------- Dictated By: Jose Francisco Donahue Dictated Date: 05/19/2023 20:45 Assigned Physician: Jose Francisco Donahue Reviewed and Electronically Signed By: Jose Francisco Donahue Signed Date: 05/19/2023 21:11 Workstation ID: [id number] Transcribed By: Self Edit Transcribed Date: 05/19/2023 20:46 Normal [facility] CT Head limited WO contrasto n 05-19-2023 Normal brain -------- FINAL REPORT -------- Dictated By: Jose Francisco Donahue Dictated Date: 05/19/2023 20:45 Assigned Physician: Jose Francisco Donahue Reviewed and Electronically Signed By: Jose Francisco Donahue Signed Date: 05/19/2023 21:11 Workstation ID: [id number] Transcribed By: Self Edit Transcribed Date: 05/19/2023 20:46 POWERSCRIBE EXAMINATION TYPE: CT HEAD WO CONTRAST DATE OF EXAM : 05/19/2023 8:24 PM HISTORY: Seizure, nontraumatic (Age 18-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 The sinuses are clear and the calvarium is intact. The ventricles are normal in size. There is no mass effect, midline shift or acute hemorrhage. 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 The sinuses are clear and the calvarium is intact. The ventricles are normal in size. There is no mass effect, midline shift or acute hemorrhage. IMPRESSION: Normal brain -------- FINAL REPORT -------- Dictated By: Jose Francisco Donahue Dictated Date: 05/19/2023 20:45 Assigned Physician: Jose Francisco Donahue Reviewed and Electronically Signed By: Jose Francisco Donahue Signed Date: 05/19/2023 21:11 Workstation ID: [id number] Transcribed By: Self Edit Transcribed Date: 05/19/2023 20:46 [facility] Radiology Study observation (narrative) [facility] CT Head limited WO contrastO rdered By: Jose Francisco Donahue on 05-19-2023 [facility] Work Phone: Glucose Auto test strip (Bld ) [Mass/Vol]on 05-19-2023 Glucose [Mass/Vol] 106 mg/dL High 70-99 [facility] Comment on above: Performed By: #### 2 4317-0 #### [facility] [address] [place] [address] Hemogram and platelets WO di fferential panel (Bld)on 05-19-2023 Basophils (Bld) [#/Vol] 0.03 10*3/uL Normal 0.00-0.20 [facility] Comment on above: Performed By: #### 2 4317-0 #### [facility] [address] [place] [address], [place] [address] Basophils/100 WBC (Bld) 0.2 % Normal 0.0-2.0 [facility] Comment on above: Performed By: #### 2 4317-0 #### [facility] [address] [place] [address] Eosinophils (Bld) [#/Vol] 0.03 10*3/uL Normal 0.00-0.70 [facility] Comment on above: Performed By: #### 2 4317-0 #### [facility] [address] [place] [address] Eosinophils/100 WBC (Bld) 0.2 % Normal 0.0-7.0 [facility] Comment on above: Performed By: #### 2 4317-0 #### [facility] [address] [place] [address] Erythrocyte distribution width (RBC) [Ratio] 14.6 % Normal 11.0-14.8 [facility] Comment on above: Performed By: #### 2 4317-0 #### [facility] [address] [place] [address], [place] [address] Hematocrit (Bld) [Volume fraction] 35.5 % Normal 34.3-47.9 [facility] Comment on above: Performed By: #### 2 4317-0 #### [facility] [address] [place] [address], [place] [address] Hemoglobin (Bld) [Mass/Vol] 11.7 g/dL Low 12.0-16.0 [facility] Comment on above: Performed By: #### 2 4317-0 #### [facility] [address] [place] [address] Immature granulocytes (Bld) [#/Vol] 0.05 10*3/uL Normal 0.00-0.10 [facility] Comment on above: Performed By: #### 2 4317-0 #### [facility] [address] [place] [address] Immature granulocytes/100 WBC (Bld) 0.4 % Normal 0.0-1.2 [facility] Comment on above: Performed By: #### 2 4317-0 #### [facility] [address] [place] [address] Lymphocytes (Bld) [#/Vol] 3.16 10*3/uL Normal 1.00-4.80 [facility] Comment on above: Performed By: #### 2 4317-0 #### [facility] [address] [place] [address] Lymphocytes/100 WBC (Bld) 24.1 % Normal 17.9-49.6 [facility] Comment on above: Performed By: #### 2 4317-0 #### [facility] [address] [place] [address] MCH 28.5 pcg Normal 27.0-34.0 [facility] Comment on above: Performed By: #### 2 4317-0 #### [facility] [address] [place] [address], [place] [address] MCHC (RBC) [Mass/Vol] 33.0 g/dL Normal 30.8-35.3 [facility] Comment on above: Performed By: #### 2 4317-0 #### [facility] [address] [place] [address], [place] [address] MCV (RBC) [Entitic vol] 86.6 fL Normal 80.0-97.0 [facility] Comment on above: Performed By: #### 2 4317-0 #### [facility] [address] [place] [address] Monocytes (Bld) [#/Vol] 0.83 10*3/uL Normal 0.00-0.90 [facility] Comment on above: Performed By: #### 2 4317-0 #### [facility] [place] [address] [place] [address] Monocytes/100 WBC (Bld) 6.3 % Normal 0.0-12.0 [facility] Comment on above: Performed By: #### 2 4317-0 #### [facility] [address] [place] [address] [place] [address] Neutrophils Absolute 9.02 K/mcL High 1.80-7.70 [facility] Comment on above: Performed By: #### 2 4317-0 #### [facility] [address] [place] [address] [place] [address] Neutrophils/100 WBC (Bld) 68.8 % Normal 38.1-75.5 [facility] Comment on above: Performed By: #### 2 4317-0 #### [facility] [address] [place], [place] [address] [address] Platelet mean volume (Bld) [Entitic vol] 10.3 fL Normal 6.2-12.1 [facility] Comment on above: Performed By: #### 2 4317-0 #### [facility] [address] [place] [address] [place] [address] Platelets (Bld) [#/Vol] 285 10*3/uL Normal 142-424 [facility] Comment on above: Performed By: #### 2 4317-0 #### [facility] [address] [place] [address] [place] [address] RBC (Bld) [#/Vol] 4.10 10*6/uL Normal 3.74-5.34 [facility] Comment on above: Performed By: #### 2 4317-0 #### [facility] [address] [place] [address] [place] [address] WBC (Bld) [#/Vol] 13.1 10*3/uL High 4.6-10.2 [facility] Comment on above: Performed By: #### 2 4317-0 #### [facility] [address] [place] [address] Basophils (Bld) [#/Vol] 0.03 10*3/uL [facility] Basophils/100 WBC (Bld) 0.2 % 0.0 - 2.0 % [facility] Eosinophils (Bld) [#/Vol] 0.03 10*3/uL [facility] Eosinophils/100 WBC (Bld) 0.2 % 0.0 - 7.0 % [facility] Erythrocyte distribution width (RBC) [Ratio] 14.6 % 11.0 - 14.8 % [facility] Hematocrit (Bld) [Volume fraction] 35.5 % 34.3 - 47.9 % [facility] Hemoglobin (Bld) [Mass/Vol] 11.7 g/dL Low 12.0 - 16.0 g/dL [facility] Immature granulocytes (Bld) [#/Vol] 0.05 10*3/uL [facility] Immature granulocytes/100 WBC (Bld) 0.4 % 0.0 - 1.2 % [facility] Interpretation and review of laboratory results Abnormal [facility] Lymphocytes (Bld) [#/Vol] 3.16 10*3/uL [facility] Lymphocytes/100 WBC (Bld) 24.1 % 17.9 - 49.6 % [facility] MCH (RBC) [Entitic mass] 28.5 pg [facility] MCHC (RBC) [Mass/Vol] 33.0 g/dL 30.8 - 35.3 g/dL [facility] MCV (RBC) [Entitic vol] 86.6 fL [facility] Monocytes (Bld) [#/Vol] 0.83 10*3/uL [facility] Monocytes/100 WBC (Bld) 6.3 % 0.0 - 12.0 % [facility] Neutrophils (Bld) [#/Vol] 9.02 10*3/uL High [facility] Neutrophils/100 WBC (Bld) 68.8 % 38.1 - 75.5 % [facility] Platelet mean volume (Bld) [Entitic vol] 10.3 fL [facility] Platelets (Bld) [#/Vol] 285 10*3/uL [facility] RBC (Bld) [#/Vol] 4.10 10*6/uL [facility] WBC (Bld) [#/Vol] 13.1 10*3/uL High [facility] Basophils (Bld) [#/Vol] 0.04 10*3/uL Normal 0.00-0.20 [facility] Comment on above: Performed By: #### 2 4317-0 #### [facility] [address] [place] [address] [place] [address] Basophils/100 WBC (Bld) 0.3 % Normal 0.0-2.0 [facility] Comment on above: Performed By: #### 2 4317-0 #### [facility] [address] [place] [address] [place] [address] Eosinophils (Bld) [#/Vol] 0.05 10*3/uL Normal 0.00-0.70 [facility] Comment on above: Performed By: #### 2 4317-0 #### [facility] [address] [place] [address] [place] [address] Eosinophils/100 WBC (Bld) 0.4 % Normal 0.0-7.0 [facility] Comment on above: Performed By: #### 2 4317-0 #### [facility] [address] [place] [address] [place] [address] Erythrocyte distribution width (RBC) [Ratio] 15.0 % High 11.0-14.8 [facility] Comment on above: Performed By: #### 2 4317-0 #### [facility] [address] [place] [address] [place] [address] Hematocrit (Bld) [Volume fraction] 35.2 % Normal 34.3-47.9 [facility] Comment on above: Performed By: #### 2 4317-0 #### [facility] [address] [place] [address], [place] [address] Hemoglobin (Bld) [Mass/Vol] 11.3 g/dL Low 12.0-16.0 [facility] Comment on above: Performed By: #### 2 4317-0 #### [facility] [address] [place] [address] Immature granulocytes (Bld) [#/Vol] 0.05 10*3/uL Normal 0.00-0.10 [facility] Comment on above: Performed By: #### 2 4317-0 #### [facility] [address] [place] [address] Immature granulocytes/100 WBC (Bld) 0.4 % Normal 0.0-1.2 [facility] Comment on above: Performed By: #### 2 4317-0 #### [facility] [address] [place] [address] Lymphocytes (Bld) [#/Vol] 4.27 10*3/uL Normal 1.00-4.80 [facility] Comment on above: Performed By: #### 2 4317-0 #### [facility] [address] [place] [address] Lymphocytes/100 WBC (Bld) 32.5 % Normal 17.9-49.6 [facility] Comment on above: Performed By: #### 2 4317-0 #### [facility] [address] [place] [address] MCH 28.8 pcg Normal 27.0-34.0 [facility] Comment on above: Performed By: #### 2 4317-0 #### [facility] [address] [place] [address] MCHC (RBC) [Mass/Vol] 32.1 g/dL Normal 30.8-35.3 [facility] Comment on above: Performed By: #### 2 4317-0 #### [facility] [address] [place] [address] [place] [address] MCV (RBC) [Entitic vol] 89.6 fL Normal 80.0-97.0 [facility] Comment on above: Performed By: #### 2 4317-0 #### [facility] [address] [place] [address] [place] [address] Monocytes (Bld) [#/Vol] 0.80 10*3/uL Normal 0.00-0.90 [facility] Comment on above: Performed By: #### 2 4317-0 #### [facility] [address] [place] [address] [place] [address] Monocytes/100 WBC (Bld) 6.1 % Normal 0.0-12.0 [facility] Comment on above: Performed By: #### 2 4317-0 #### [facility] [address] [place] [address], [place] [address] Neutrophils Absolute 7.92 K/mcL High 1.80-7.70 [facility] Comment on above: Performed By: #### 2 4317-0 #### [facility] [address] [place], [place] [address] [address] Neutrophils/100 WBC (Bld) 60.3 % Normal 38.1-75.5 [facility] Comment on above: Performed By: #### 2 4317-0 #### [facility] [address] [place] [address], [place] [address] Platelet mean volume (Bld) [Entitic vol] 10.7 fL Normal 6.2-12.1 [facility] Comment on above: Performed By: #### 2 4317-0 #### [facility] [address] [place], [place] [address] [place] [address] Platelets (Bld) [#/Vol] 264 10*3/uL Normal 142-424 [facility] Comment on above: Performed By: #### 2 4317-0 #### [facility] [place] [address] RBC (Bld) [#/Vol] 3.93 10*6/uL Normal 3.74-5.34 [facility] Comment on above: Performed By: #### 2 4317-0 #### [facility] [place] [address] WBC (Bld) [#/Vol] 13.1 10*3/uL High 4.6-10.2 [facility] Comment on above: Performed By: #### 2 4317-0 #### [facility] [place] [address] Laboratory - Specimen inform ationon 05-19-2023 Specimen source Nom (Unsp spec) Hold for add-ons. [facility] Comment on above: Auto resulted. Magnesiumon 05-19-2023 Magnesium [Mass/Vol] 1.6 mg/dL Low 1.8 - 2 .5 mg/dL [facility] Magnesium [Mass/Vol]on 05-19 Anion gap [Moles/Vol] 9 mmol/L Normal 6-18 [facility] Comment on above: Performed By: #### 1 9123-9 #### [facility] [place] [place] [address] Calcium [Mass/Vol] 8.6 mg/dL Low 8.9-10.3 [facility] Comment on above: Performed By: #### 1 9123-9 #### [facility] [place] [place] [address] Chloride [Moles/Vol] 104 mmol/L Normal 98-107 [facility] Comment on above: Performed By: #### 1 9123-9 #### [facility] [place] [address] CO2 [Moles/Vol] 25 mmol/L Normal 22-32 [facility] Comment on above: Performed By: #### 1 9123-9 #### [facility] [address] [place] [address] Creatinine [Mass/Vol] 0.69 mg/dL Normal 0.60-1.30 [facility] Comment on above: Performed By: #### 1 9123-9 #### [facility] [place] [address] GFR/1.73 sq M.predicted among non-blacks MDRD (S/P/Bld) [Vol rate/Area] 116 mL/min/{1.73_m2} Normal >=60 [facility] Comment on above: Result Comment: Effe ctive May 31, 2022, calculation based on the?Chronic Kidney Disease Epidemiology Collaboration (CKD-EPI) equation refit?without adjustment for race. Performed By: #### 1 9123-9 #### [facility] [place] [address] Glucose [Mass/Vol] 104 mg/dL High 70-99 [facility] Comment on above: Performed By: #### 1 9123-9 #### [facility] [place] [address] Potassium [Moles/Vol] 3.5 mmol/L Low 3.6-5.1 [facility] Comment on above: Performed By: #### 1 9123-9 #### [facility] [place] [address] Sodium [Moles/Vol] 138 mmol/L Normal 136-145 [facility] Comment on above: Performed By: #### 1 9123-9 #### [facility] [address] [place] [address] Urea nitrogen [Mass/Vol] 3 mg/dL Low 8-20 [facility] Comment on above: Performed By: #### 1 9123-9 #### [facility] [place] [address] Urea nitrogen/Creatinine [Mass ratio] 4.3 mg/mg Low 12.0-20.0 [facility] Comment on above: Performed By: #### 1 9123-9 #### [facility] [address] [place] [address] [place] [address] Albumin [Mass/Vol] 3.6 g/dL Normal 3.5-4.8 [facility] Comment on above: Performed By: #### 2 4317-0 #### [facility] [address] [place], [place] [address] [address] ALP [Catalytic activity/Vol] 58 U/L Normal 32-91 [facility] Comment on above: Performed By: #### 2 4317-0 #### [facility] [address] [place] [address], [place] [address] ALT [Catalytic activity/Vol] 20 U/L Normal 7-52 [facility] Comment on above: Performed By: #### 2 4317-0 #### [facility] [address] [place] [address] [place] [address] AST [Catalytic activity/Vol] 29 U/L Normal 15-41 [facility] Comment on above: Performed By: #### 2 4317-0 #### [facility] [address] [place], [place] [address] [address] Bilirubin [Mass/Vol] 0.4 mg/dL Normal 0.3-1.2 [facility] Comment on above: Performed By: #### 2 4317-0 #### [facility] [address] [place], [place] [address] [address] Bilirubin, Indirect 0.3 mg/dL Normal 0.0-1.0 [facility] Comment on above: Performed By: #### 2 4317-0 #### [facility] [address] [place] [address] Bilirubin.indirect [Mass/Vol] 0.1 mg/dL Normal <=0.5 [facility] Comment on above: Performed By: #### 2 4317-0 #### [facility] [address] [place] [address] Protein [Mass/Vol] 5.6 g/dL Low 6.1-7.9 [facility] Comment on above: Performed By: #### 2 4317-0 #### [facility] [address] [place] [address] No Panel Informationon 05-19 [facility] Interpretation and review of laboratory results Abnormal [employer] Basic metabolic 2000 panelon 05-18-2023 Anion gap [Moles/Vol] 8 mmol/L 6 - 18 [facility] Calcium [Mass/Vol] 8.8 mg/dL Low 8.9 - 10. 3 mg/dL [facility] Chloride [Moles/Vol] 104 mmol/L 98 - 10 7 mmol/L [facility] CO2 [Moles/Vol] 28 mmol/L 22 - 32 mmol/L [facility] Creatinine [Mass/Vol] 0.68 mg/dL 0.60 - 1.30 mg/dL [facility] GFR/1.73 sq M.predicted among non-blacks MDRD (S/P/Bld) [Vol rate/Area] 117 mL/min/{1.73_m2} - PINF [facility] Comment on above: Effective May 31, 2022, calculation based on the Chronic Kidney Disease Epidemiology Collaboration (CKD-EPI) equation refit without adjustment for race. Glucose [Mass/Vol] 127 mg/dL High 70 - 99 mg/dL [facility] Interpretation and review of laboratory results Abnormal [facility] Potassium [Moles/Vol] 3.7 mmol/L 3.6 - 5.1 mmol/L [facility] Sodium [Moles/Vol] 140 mmol/L 136 - 145 mmol/L [facility] Urea nitrogen [Mass/Vol] 5 mg/dL Low 8 - 20 mg/dL [facility] Urea nitrogen/Creatinine [Mass ratio] 7.4 mg/mg Low 12.0 - 20.0 [facility] Beta HCG ( test) Ql on 05-18-2023 HCG ( test) Ql Negative Negative T [facility] Interpretation and review of laboratory results Normal [facility] CBC with differentialon 04-24 Erythrocyte distribution width (RBC) [Ratio] 15.8 % 11.0 - 16.3 % [facility] Hematocrit (Bld) [Volume fraction] 38.7 % 31.1 - 57.4 % [facility] Hemoglobin (Bld) [Mass/Vol] 12.5 g/dL Low 13.0 - 17.0 g/dL [facility] Interpretation and review of laboratory results Abnormal [facility] Lymphocyte # POCT 3.3 [facility] Lymphocytes/100 WBC (Bld) 19.9 % Low 25 - 57 % [facility] MCH POCT 28.7 [facility] MCHC (RBC) [Mass/Vol] 32.3 g/dL Low 32.7 - 36.7 g/dL [facility] MCV POCT 88.8 [facility] MPV POCT 10.7 [facility] MXD # POCT 1.0 [facility] MXD % POCT 6.2 % 1.2 - 11.4 % [facility] Neutrophil # POCT 12.3 High [facility] Neutrophils/100 WBC (Bld) 73.9 % 37 - 75 % [facility] Platelet Ab Ql (S) 352 K/uL 166 - 400 K/uL [facility] RBC POCT 4.36 [facility] [facility] WBC POCT 16.[address] [facility] [address] ABDOMEN PELVIS W CONTRAST on 05-18-2023 CT ABDOMEN PELVIS W CONTRAST EXAMINATION TYPE: CT scan of the abdomen with contrast CT scan of the pelvis with contrast. DATE OF EXAM : 05/18/2023 3:59 PM HISTORY: Abdominal pain, acute, no prior medical history. Persistent N/V. Elevated lipase on recent visit. Upper abd pain, symptoms for 3 days epigastric abdominal pain. History of pancreatitis. Elevated lipase. Status post cholecystectomy. Contrast: 100 mL ISOVUE-300, IV COMPARISON: CT scan of the abdomen and pelvis with contrast dated 10/29/2019. FINDINGS: Air trapping in the right lower lobe. Mild basilar atelectasis. No pleural or pericardial effusion. Less than 1 cm in short axis dimension paraesophageal lymph node on axial image #17 is unchanged. Mild bilateral sacroiliac joint degenerative change. Diffuse fatty infiltration of the liver. Status post cholecystectomy. The spleen, left kidney and adrenal glands are unremarkable. Probable small cyst in lower pole of the right kidney on axial image #48 and coronal image #52. The pancreas is normal in size. No peripancreatic soft tissue stranding or fluid collection. The portal vein, splenic vein, and superior mesenteric vein are grossly patent. No retroperitoneal adenopathy or free air. The appendix appears normal. No significant stool in the colon. No small bowel dilation. CT scan of the pelvis with contrast: Right adnexal cyst measuring approximately 16 mm on axial image #78. No pelvic or inguinal lymphadenopathy. IMPRESSION: 1. No peripancreatic soft tissue stranding or fluid collection to suggest pancreatitis. 2. Diffuse fatty infiltration of the liver. Status post cholecystectomy. 3. Right adnexal cyst likely representing a physiologic ovarian cyst given the patient's age. 4. Probable simple cyst right kidney. -------- FINAL REPORT -------- Dictated By: Samaria Elizabeth Dictated Date: 05/18/2023 16:15 Assigned Physician: Samaria Elizabeth Reviewed and Electronically Signed By: Samaria Elizabeth Signed Date: 05/18/2023 16:31 Workstation ID: [id number] Transcribed By: Self Edit Transcribed Date: 05/18/2023 16:15 Normal [facility] CT Abdomen and Pelvis W cont rast Elian 05-18-2023 1. No peripancreatic soft tissue stranding or fluid collection to suggest pancreatitis. 2. Diffuse fatty infiltration of the liver. Status post cholecystectomy. 3. Right adnexal cyst likely representing a physiologic ovarian cyst given the patient's age. 4. Probable simple cyst right kidney. -------- FINAL REPORT -------- Dictated By: Samaria Elizabeth Dictated Date: 05/18/2023 16:15 Assigned Physician: Samaria Elizabeth Reviewed and Electronically Signed By: Samaria Elizabeth Signed Date: 05/18/2023 16:31 Workstation ID: [id number] Transcribed By: Self Edit Transcribed Date: 05/18/2023 16:15 POWERSCRIBE EXAMINATION TYPE: CT scan of the abdomen with contrast CT scan of the pelvis with contrast. DATE OF EXAM : 05/18/2023 3:59 PM HISTORY: Abdominal pain, acute, no prior medical history. Persistent N/V. Elevated lipase on recent visit. Upper abd pain, symptoms for 3 days epigastric abdominal pain. History of pancreatitis. Elevated lipase. Status post cholecystectomy. Contrast: 100 mL ISOVUE-300, IV COMPARISON: CT scan of the abdomen and pelvis with contrast dated 10/29/2019. FINDINGS: Air trapping in the right lower lobe. Mild basilar atelectasis. No pleural or pericardial effusion. Less than 1 cm in short axis dimension paraesophageal lymph node on axial image #17 is unchanged. Mild bilateral sacroiliac joint degenerative change. Diffuse fatty infiltration of the liver. Status post cholecystectomy. The spleen, left kidney and adrenal glands are unremarkable. Probable small cyst in lower pole of the right kidney on axial image #48 and coronal image #52. The pancreas is normal in size. No peripancreatic soft tissue stranding or fluid collection. The portal vein, splenic vein, and superior mesenteric vein are grossly patent. No retroperitoneal adenopathy or free air. The appendix appears normal. No significant stool in the colon. No small bowel dilation. CT scan of the pelvis with contrast: Right adnexal cyst measuring approximately 16 mm on axial image #78. No pelvic or inguinal lymphadenopathy. POWERSCRIBE Samaria Elizabeth MD - 05/18/2023 EXAMINATION TYPE: CT scan of the abdomen with contrast CT scan of the pelvis with contrast. DATE OF EXAM : 05/18/2023 3:59 PM HISTORY: Abdominal pain, acute, no prior medical history. Persistent N/V. Elevated lipase on recent visit. Upper abd pain, symptoms for 3 days epigastric abdominal pain. History of pancreatitis. Elevated lipase. Status post cholecystectomy. Contrast: 100 mL ISOVUE-300, IV COMPARISON: CT scan of the abdomen and pelvis with contrast dated 10/29/2019. FINDINGS: Air trapping in the right lower lobe. Mild basilar atelectasis. No pleural or pericardial effusion. Less than 1 cm in short axis dimension paraesophageal lymph node on axial image #17 is unchanged. Mild bilateral sacroiliac joint degenerative change. Diffuse fatty infiltration of the liver. Status post cholecystectomy. The spleen, left kidney and adrenal glands are unremarkable. Probable small cyst in lower pole of the right kidney on axial image #48 and coronal image #52. The pancreas is normal in size. No peripancreatic soft tissue stranding or fluid collection. The portal vein, splenic vein, and superior mesenteric vein are grossly patent. No retroperitoneal adenopathy or free air. The appendix appears normal. No significant stool in the colon. No small bowel dilation. CT scan of the pelvis with contrast: Right adnexal cyst measuring approximately 16 mm on axial image #78. No pelvic or inguinal lymphadenopathy. IMPRESSION: 1. No peripancreatic soft tissue stranding or fluid collection to suggest pancreatitis. 2. Diffuse fatty infiltration of the liver. Status post cholecystectomy. 3. Right adnexal cyst likely representing a physiologic ovarian cyst given the patient's age. 4. Probable simple cyst right kidney. -------- FINAL REPORT -------- Dictated By: Samaria Elizabeth Dictated Date: 05/18/2023 16:15 Assigned Physician: Samaria Elizabeth Reviewed and Electronically Signed By: Samaria Elizabeth Signed Date: 05/18/2023 16:31 Workstation ID: [id number] Transcribed By: Self Edit Transcribed Date: 05/18/2023 16:15 [facility] Radiology Study observation (narrative) [facility] CT Abdomen and Pelvis W cont rast IVOrdered By: Samaria Elizabeth on 05-18-2023 [employer] Work Phone: Hemogram and platelets WO di fferential panel (Bld)on 05-18-2023 Basophils (Bld) [#/Vol] 0.03 10*3/uL Normal 0.00-0.20 [facility] Comment on above: Performed By: #### 2 4317-0 #### [facility] [address] [place] [address] Basophils/100 WBC (Bld) 0.2 % Normal 0.0-2.0 [facility] Comment on above: Performed By: #### 2 4317-0 #### [facility] [address] [place] [address] Eosinophils (Bld) [#/Vol] 0.01 10*3/uL Normal 0.00-0.70 [facility] Comment on above: Performed By: #### 2 4317-0 #### [facility] [address] [place] [address] Eosinophils/100 WBC (Bld) 0.1 % Normal 0.0-7.0 [facility] Comment on above: Performed By: #### 2 4317-0 #### [facility] [address] [place] [address] Erythrocyte distribution width (RBC) [Ratio] 15.4 % High 11.0-14.8 [facility] Comment on above: Performed By: #### 2 4317-0 #### [facility] [address] [place] [address] Hematocrit (Bld) [Volume fraction] 39.2 % Normal 34.3-47.9 [facility] Comment on above: Performed By: #### 2 4317-0 #### [facility] [address] [place] [address] Hemoglobin (Bld) [Mass/Vol] 12.6 g/dL Normal 12.0-16.0 [facility] Comment on above: Performed By: #### 2 4317-0 #### [facility] [address] [place] [address] Immature granulocytes (Bld) [#/Vol] 0.09 10*3/uL Normal 0.00-0.10 [facility] Comment on above: Performed By: #### 2 4317-0 #### [facility] [address] [place] [address] Immature granulocytes/100 WBC (Bld) 0.5 % Normal 0.0-1.2 [facility] Comment on above: Performed By: #### 2 4317-0 #### [facility] [address] [place] [address] Lymphocytes (Bld) [#/Vol] 3.26 10*3/uL Normal 1.00-4.80 [facility] Comment on above: Performed By: #### 2 4317-0 #### [facility] [address] [place] [address] [place] [address] Lymphocytes/100 WBC (Bld) 17.4 % Low 17.9-49.6 [facility] Comment on above: Performed By: #### 2 4317-0 #### [facility] [address] [place] [address] [place] [address] MCH 28.3 pcg Normal 27.0-34.0 [facility] Comment on above: Performed By: #### 2 4317-0 #### [facility] [address] [place] [address] [place] [address] MCHC (RBC) [Mass/Vol] 32.1 g/dL Normal 30.8-35.3 [facility] Comment on above: Performed By: #### 2 4317-0 #### [facility] [address] [place] [address], [place] [address] MCV (RBC) [Entitic vol] 87.9 fL Normal 80.0-97.0 [facility] Comment on above: Performed By: #### 2 4317-0 #### [facility] [address] [place] [address] Monocytes (Bld) [#/Vol] 1.22 10*3/uL High 0.00-0.90 [facility] Comment on above: Performed By: #### 2 4317-0 #### [facility] [address] [place] [address] Monocytes/100 WBC (Bld) 6.5 % Normal 0.0-12.0 M [facility] Comment on above: Performed By: #### 2 4317-0 #### [facility] [address] [place], [place] [address] [address] Neutrophils Absolute 14.17 K/mcL High 1.80-7.70 [facility] Comment on above: Performed By: #### 2 4317-0 #### [facility] [place] [address] Neutrophils/100 WBC (Bld) 75.3 % Normal 38.1-75.5 [facility] Comment on above: Performed By: #### 2 4317-0 #### [facility] [place] [address] Platelet mean volume (Bld) [Entitic vol] 10.4 fL Normal 6.2-12.1 [facility] Comment on above: Performed By: #### 2 4317-0 #### [facility] [address] [place] [address] [place] [address] Platelets (Bld) [#/Vol] 383 10*3/uL Normal 142-424 [facility] Comment on above: Performed By: #### 2 4317-0 #### [facility] [address] [place] [address] [place] [address] RBC (Bld) [#/Vol] 4.46 10*6/uL Normal 3.74-5.34 [facility] Comment on above: Performed By: #### 2 4317-0 #### [facility] [address] [place] [address] [place] [address] WBC (Bld) [#/Vol] 18.8 10*3/uL High 4.6-10.2 [facility] Comment on above: Performed By: #### 2 4317-0 #### [facility] [place] [address] Basophils (Bld) [#/Vol] 0.03 10*3/uL [facility] Basophils/100 WBC (Bld) 0.2 % 0.0 - 2.0 % [facility] Eosinophils (Bld) [#/Vol] 0.01 10*3/uL [facility] Eosinophils/100 WBC (Bld) 0.1 % 0.0 - 7.0 % [facility] Erythrocyte distribution width (RBC) [Ratio] 15.4 % High 11.0 - 14.8 % [facility] Hematocrit (Bld) [Volume fraction] 39.2 % 34.3 - 47.9 % [facility] Hemoglobin (Bld) [Mass/Vol] 12.6 g/dL 12.0 - 16.0 g/dL [facility] Immature granulocytes (Bld) [#/Vol] 0.09 10*3/uL [facility] Immature granulocytes/100 WBC (Bld) 0.5 % 0.0 - 1.2 % [facility] Interpretation and review of laboratory results Abnormal [facility] Lymphocytes (Bld) [#/Vol] 3.26 10*3/uL [facility] Lymphocytes/100 WBC (Bld) 17.4 % Low 17.9 - 49.6 % [facility] MCH (RBC) [Entitic mass] 28.3 pg [facility] MCHC (RBC) [Mass/Vol] 32.1 g/dL 30.8 - 35.3 g/dL [facility] MCV (RBC) [Entitic vol] 87.9 fL [facility] Monocytes (Bld) [#/Vol] 1.22 10*3/uL High [facility] Monocytes/100 WBC (Bld) 6.5 % 0.0 - 12.0 % [facility] Neutrophils (Bld) [#/Vol] 14.17 10*3/uL High [facility] Neutrophils/100 WBC (Bld) 75.3 % 38.1 - 75.5 % [facility] Platelet mean volume (Bld) [Entitic vol] 10.4 fL [facility] Platelets (Bld) [#/Vol] 383 10*3/uL [facility] RBC (Bld) [#/Vol] 4.46 10*6/uL [facility] WBC (Bld) [#/Vol] 18.8 10*3/uL High [facility] Hepatic function 2000 panelo n 05-18-2023 Albumin [Mass/Vol] 4.0 g/dL 3.5 - 4.8 g/dL [facility] ALP [Catalytic activity/Vol] 61 U/L [facility] ALT [Catalytic activity/Vol] 14 U/L [facility] AST [Catalytic activity/Vol] 21 U/L [facility] Bilirubin [Mass/Vol] 0.5 mg/dL 0.3 - 1 .2 mg/dL [facility] Bilirubin.direct [Mass/Vol] 0.1 mg/dL NINF - 0.5 mg/dL [facility] Bilirubin.indirect [Mass/Vol] 0.4 mg/dL 0.0 - 1.0 mg/dL [facility] Interpretation and review of laboratory results Normal [facility] Protein [Mass/Vol] 6.6 g/dL 6.1 - 7.9 g/dL [facility] Lipaseon 05-18-2023 Lipase [Catalytic activity/Vol] 374 U/L High [facility] Lipase [Catalytic activity/V ol]on 05-18-2023 Interpretation and review of laboratory results Abnormal [facility] Magnesiumon 05-18-2023 Magnesium [Mass/Vol] 1.8 mg/dL 1.8 - 2 .5 mg/dL [facility] Magnesium [Mass/Vol]on 05-18 Lipase [Catalytic activity/Vol] 374 U/L High 11-82 [facility] Comment on above: Performed By: #### 1 9123-9 #### [facility] [address] [place] [address] Interpretation and review of laboratory results Normal [facility] No Panel Informationon 05-18 [facility] POCT BASIC METABOLIC PROFILE on 05-18-2023 Calcium [Mass/Vol] 9.3 mg/dL Normal 8.9-10.3 [facility] Comment on above: Performed By: #### L [id number] ####[facility]) [id number] [place] [address] Chloride [Moles/Vol] 106 mmol/L Normal 98-107 [facility] Comment on above: Performed By: #### L [id number] ####[facility] ([facility]) [id number] [place] [address] CO2 [Moles/Vol] 25 mmol/L Normal 22-32 [facility] Comment on above: Performed By: #### L [id number] ####[facility] ([facility]) [id number] [place] [address] Creatinine [Mass/Vol] 0.4 mg/dL Low 0.6-1.3 [facility] Comment on above: Performed By: #### L [id number] ####[facility] ([facility]) [id number] [place] [address] GFR/1.73 sq M.predicted among non-blacks MDRD (S/P/Bld) [Vol rate/Area] 135 mL/min/{1.73_m2} Normal >=60 [facility] Comment on above: Performed By: #### L [id number] ####[facility] ([facility]) [id number] [place] [address] Glucose [Mass/Vol] 131 mg/dL High 70-99 [facility] Comment on above: Performed By: #### L [id number] ####[facility] ([facility]) [id number] [place] [address] Potassium [Moles/Vol] 3.7 mmol/L Normal 3.6-5.1 [facility] Comment on above: Performed By: #### L [id number] ####[facility] ([facility]) [id number] [place] [address] Sodium [Moles/Vol] 143 mmol/L Normal 136-145 [facility] Comment on above: Performed By: #### L [id number] ####[facility] ([facility]) [id number] [place] [address] Urea nitrogen [Mass/Vol] 6 mg/dL Low 8-20 [facility] Comment on above: Performed By: #### L [id number] ####[facility] ([facility]) [id number] [place] [address] POCT Basic metabolic profile on 05-18-2023 Calcium [Mass/Vol] 9.3 mg/dL 8.9 - 10. 3 mg/dL [facility] Chloride [Moles/Vol] 106 mmol/L 98 - 10 7 mmol/L [facility] CO2 [Moles/Vol] 25 mmol/L 22 - 32 mmol/L [facility] Creatinine [Mass/Vol] 0.4 mg/dL Low 0.6 - 1.3 mg/dL [facility] GFR/1.73 sq M.predicted among non-blacks MDRD (S/P/Bld) [Vol rate/Area] 135 mL/min/{1.73_m2} - PINF [facility] Glucose [Mass/Vol] 131 mg/dL High 70 - 99 mg/dL [facility] Interpretation and review of laboratory results Abnormal [facility] Potassium [Moles/Vol] 3.7 mmol/L 3.6 - 5.1 mmol/L [facility] Sodium [Moles/Vol] 143 mmol/L 136 - 145 mmol/L [facility] Urea nitrogen [Mass/Vol] 6 mg/dL Low 8 - 20 mg/dL [facility] POCT CBC WITH DIFFERENTIALon 05-18-2023 Erythrocyte distribution width (RBC) [Ratio] 15.8 % Normal 11.0-16.3 [facility] Comment on above: Performed By: #### L [id number] ####[facility] [id number] [place] [address] Hematocrit (Bld) [Volume fraction] 38.7 % Normal 31.1-57.4 [facility] Comment on above: Performed By: #### L [id number] ####[facility] [id number] [place] [address] Hemoglobin (Bld) [Mass/Vol] 12.5 g/dL Low 13.0-17.0 [facility] Comment on above: Performed By: #### L [id number] ####[facility] ([facility] [id number] [place] [address] Lymphocytes (Bld) [#/Vol] 3.3 10*3/uL Normal 1.0-4.8 [facility] Comment on above: Performed By: #### L [id number] ####[facility] ([facility]) [id number] [place] [address] Lymphocytes/100 WBC (Bld) 19.9 % Low 25-57 [facility] Comment on above: Performed By: #### L [id number] ####[facility] ([facility]) [id number] [place] [address] MCH POCT 28.7 pcg Normal 27.4-35.7 [facility] Comment on above: Performed By: #### L [id number] ####[facility]) [id number] [place] [address] MCHC (RBC) [Mass/Vol] 32.3 g/dL Low 32.7-36.7 [facility] Comment on above: Performed By: #### L [id number] ####[facility] [id number] [place] [address] MCV (RBC) [Entitic vol] 88.8 fL Normal 82.5-102.0 [facility] Comment on above: Performed By: #### L [id number] ####[facility] [id number] [place] [address] MXD # POCT 1.0 K/mcL Normal 0.1-1.3 [facility] Comment on above: Performed By: #### L [id number] ####[facility] [id number] [place] [address] MXD % POCT 6.2 % Normal 1.2-11.4 [facility] Comment on above: Performed By: #### L [id number] ####[facility] [id number] [place] [address] Neutrophils (Bld) [#/Vol] 12.3 10*3/uL High 1.8-7.7 [facility] Comment on above: Performed By: #### L [id number] ####[facility]) [id number] [place] [address] Neutrophils/100 WBC (Bld) 73.9 % Normal 37-75 [facility] Comment on above: Performed By: #### L [id number] ####[facility] ([facility] [id number] [place] [address] Platelet mean volume (Bld) [Entitic vol] 10.7 fL Normal 8.5-13.5 [facility] Comment on above: Performed By: #### L [id number] ####[facility] ([facility]) [id number] [place] [address] Platelet POCT 352 K/uL Normal 166-400 [facility] Comment on above: Performed By: #### L [id number] ####[facility]) [id number] [place] [address] RBC (Bld) [#/Vol] 4.36 10*6/uL Normal 4.30-5.70 [facility] Comment on above: Performed By: #### L [id number] ####[facility]) [id number] [place] [address] WBC (Bld) [#/Vol] 16.6 10*3/uL High 4.5-13.5 [facility] Comment on above: Performed By: #### L [id number] ####[facility] ([facility]) [id number] [place] [address] POCT LIVER PROFILEon 023 Albumin [Mass/Vol] 3.7 g/dL Normal 3.5-4.8 [facility] Comment on above: Performed By: #### L [id number] ####[facility] ([facility]) [id number] [place] [address] ALP POCT 65 units/L Normal 32-91 [facility] Comment on above: Performed By: #### L [id number] ####[facility] ([facility]) [id number] [place] [address] ALT [Catalytic activity/Vol] 15 U/L Normal 7-52 [facility] Comment on above: Performed By: #### L [id number] ####[facility] ([facility]) [id number] [place] [address] Amylase [Catalytic activity/Vol] 33.0 U/L Normal 26-100 [facility] Comment on above: Performed By: #### L [id number] ####[facility] ([facility]) [id number] [place] [address] AST [Catalytic activity/Vol] 47 U/L High 15-41 [facility] Comment on above: Performed By: #### L [id number] ####[facility] ([facility]) [id number] [place] [address] Bilirubin [Mass/Vol] 0.6 mg/dL Normal 0.3-1.2 [facility] Comment on above: Performed By: #### L [id number] ####[facility] ([facility]) [id number] [place] [address] GGT POCT 58 unit/L High 7-50 [facility] Comment on above: Performed By: #### L [id number] ####[facility] ([facility]) [id number] [place] [address] Total Protein POCT 7 g/L Normal 6.1-7.9 [facility] Comment on above: Performed By: #### L [id number] ####[facility] ([facility]) [id number] [place] [address] POCT Liver profileon 023 Albumin BCP dye (Bld) [Mass/Vol] 3.7 g/dL 3.5 - 4.8 g/dL [facility] ALP POCT 65 [facility] ALT [Catalytic activity/Vol] 15 U/L [facility] Amylase POCT 33.0 [facility] AST [Catalytic activity/Vol] 47 U/L High [facility] Bilirubin [Mass/Vol] 0.6 mg/dL 0.3 - 1 .2 mg/dL [facility] GGT POCT 58 High [facility] Interpretation and review of laboratory results Abnormal [facility] Protein [Mass/Vol] 7 g/L 6.1 - 7.9 g/L [facility] CT ABDOMEN PELVIS WITH IV CO NTRAST ONLYon 05-16-2023 CT ABDOMEN PELVIS WITH IV CONTRAST ONLY EXAMINATION: CT ABDOMEN PELVIS WITH IV CONTRAST ONLY HISTORY: ORDERING SYSTEM PROVIDED HISTORY: Abdominal pain, acute, nonlocalized, TECHNOLOGIST PROVIDED HISTORY: Illness/Other Reason for exam: abd pain Encounter Type: Initial Additional signs and symptoms: na ORDERING SYSTEM PROVIDED DIAGNOSIS CODES: COMPARISON: CT abdomen and pelvis dated 04/23/2023 TECHNIQUE: CT examination of the abdomen and pelvis following the administration of intravenous contrast. Coronal and sagittal reformations were performed. Dose reduction techniques were achieved by using automated exposure control and/or adjustment of mA and/or kV according to patient size and/or use of iterative reconstruction technique. CONTRAST: IOPAMIDOL 370 MG IODINE/ML (76 %) INTRAVENOUS SOLUTION - 75 mL, FINDINGS: Lung Bases: Normal. Liver: Similar hepatic steatosis and hepatomegaly without focal lesion. Biliary tree: Normal. Gallbladder: Surgically absent. Spleen: Normal. Pancreas: Normal. Adrenal glands: Normal. Kidneys and ureters: Negative for acute abnormality, small probably inferior right renal cyst again seen measuring 9 mm. Bladder: Normal. Reproductive organs: Within normal limits Gastrointestinal tract: No bowel obstruction or bowel wall thickening. The appendix is normal. Peritoneum/retroperi toneum: No free fluid or gas. Vasculature: Patent. No abdominal aortic aneurysm. Lymph nodes: Normal. Abdominal wall: Normal. Musculoskeletal: Normal. IMPRESSION: Negative for acute intra-abdominal or pelvic abnormality. Workstation ID: [id number] Dictated by: BRETT MACKENZIE on WedMay 16, 2023 8:52:18 PM EDT Transcribed by: BRETT MACKENZIE on WedMay 16, 2023 8:52:18 PM EDT Finalized by: BRETT MACKENZIE on WedMay 16, 2023 8:52:18 PM EDT [facility] Comment on above: Order Comment: Injur y/Trauma or Illness?:Illness/Other How long have you had these symptoms (acute/chronic)?:Acute Reason for exam?:abd pain Type of Exam?:Initial Additional signs and symptoms?:na CT ABDOMEN PELVIS WITH IV CO NTRAST ONLYon 04-23-2023 CT ABDOMEN PELVIS WITH IV CONTRAST ONLY EXAMINATION: CT ABDOMEN PELVIS WITH IV CONTRAST ONLY 04/23/2023 HISTORY: Acute left upper quadrant pain TECHNIQUE: Axial CT scans through the abdomen and pelvis were obtained with IV administration of Isovue. Dose reduction techniques were achieved by using automated exposure control and/or adjustment of mA and /or kV according to patient size and/or use of iterative reconstruction technique. COMPARISON: 07/16/2013 FINDINGS: TUBES/IMPLANTS: None LOWER CHEST: Patchy ground-glass opacities are seen in both lungs. Mild cardiomegaly. Small hiatal hernia. ABDOMINAL WALL AND SOFT TISSUES: Unremarkable. BONES: No suspicious lesions. Multilevel degenerative changes of the spine. ARTERIES: No aortoiliac aneurysm VEINS: Unremarkable. LYMPH NODES: Unremarkable. PERITONEUM/ RETROPERITONEUM: Unremarkable. BOWEL: No obstruction APPENDIX: Unremarkable. LIVER: Enlarged measuring 22 cm with steatosis GALLBLADDER: Surgically absent BILE DUCTS: Not dilated SPLEEN: Unremarkable PANCREAS: Unremarkable. ADRENALS: Unremarkable. KIDNEYS/ URETERS: Unremarkable. REPRODUCTIVE ORGANS: Unremarkable URINARY BLADDER: Mildly filled IMPRESSION: No evidence of acute abdominopelvic process. Hepatomegaly with steatosis. Small hiatal hernia. Workstation ID: [id number] Dictated by: BLU NARANJO on WedApr 23, 2023 8:36:15 PM EDT Transcribed by: BLU NARANJO on WedApr 23, 2023 8:36:15 PM EDT Finalized by: BLU NARANJO on WedApr 23, 2023 8:36:15 PM EDT [facility] Comment on above: Order Comment: Injur y/Trauma or Illness?:Illness/Other How long have you had these symptoms (acute/chronic)?:Acute Reason for exam?:LUQ pain Type of Exam?:Initial Additional signs and symptoms?: No Panel Informationon 05-10 No acute osseous abnormality is identified. -------- FINAL REPORT -------- Dictated By: Sonu Araujo Dictated Date: 05/10/2022 04:52 Assigned Physician: Sonu Araujo Reviewed and Electronically Signed By: Sonu Araujo Signed Date: 05/10/2022 04:56 Workstation ID: [id number] Transcribed By: Self Edit Transcribed Date: 05/10/2022 04:52 POWERSCRIBE EXAMINATION TYPE: XR KNEE 4+ VIEWS RIGHT DATE OF EXAM : 05/10/2022 4:50 AM HISTORY: 32-year-old female status post fall tonight, medial knee pain. COMPARISON: None currently available. FINDINGS: Frontal, lateral and bilateral oblique views of the right knee were obtained. The evaluation is mildly compromised by the patient's body habitus and underpenetrated technique. Within this setting, no acute fracture is seen. Bony anatomic alignment appears maintained. Mild tricompartmental degenerative changes of the knee are noted. No significant pathologic joint effusion is suggested. Sonu Dumont MD - 05/10/2022 EXAMINATION TYPE: XR KNEE 4+ VIEWS RIGHT DATE OF EXAM : 05/10/2022 4:50 AM HISTORY: 32-year-old female status post fall tonight, medial knee pain. COMPARISON: None currently available. FINDINGS: Frontal, lateral and bilateral oblique views of the right knee were obtained. The evaluation is mildly compromised by the patient's body habitus and underpenetrated technique. Within this setting, no acute fracture is seen. Bony anatomic alignment appears maintained. Mild tricompartmental degenerative changes of the knee are noted. No significant pathologic joint effusion is suggested. IMPRESSION: No acute osseous abnormality is identified. -------- FINAL REPORT -------- Dictated By: Sonu Araujo Dictated Date: 05/10/2022 04:52 Assigned Physician: Sonu Araujo Reviewed and Electronically Signed By: Sonu Araujo Signed Date: 05/10/2022 04:56 Workstation ID: [id number] Transcribed By: Self Edit Transcribed Date: 05/10/2022 04:52 [facility] Radiology Study observation (narrative) [employer] No Panel InformationOrdered By: Sonu Araujo on 05-10-2022 [employer] Work Phone: No Panel Informationon 04-29 FINDINGS/IMPRESSION: No acute fracture or dislocation. Ankle mortise is symmetric. Diffuse soft tissue edema. Small plantar calcaneal spur. -------- FINAL REPORT -------- Dictated By: Sebas Polanco Dictated Date: 04/29/2022 03:11 Assigned Physician: Sebas Polanco Reviewed and Electronically Signed By: Sebas Polanco Signed Date: 04/29/2022 03:12 Workstation ID: [id number] Transcribed By: Self Edit Transcribed Date: 04/29/2022 03:11 POWERSCRIBE EXAM: XR ANKLE 3+ VIEWS LEFT. DATE OF EXAM: 04/29/2022 2:47 AM. HISTORY: Pain, unspecified. COMPARISON: Left ankle radiograph dated 02/26/2019. POWERSCRIBE Sebas Polanco MD - 04/29/2022 EXAM: XR ANKLE 3+ VIEWS LEFT. DATE OF EXAM: 04/29/2022 2:47 AM. HISTORY: Pain, unspecified. COMPARISON: Left ankle radiograph dated 02/26/2019. IMPRESSION: FINDINGS/IMPRESSION: No acute fracture or dislocation. Ankle mortise is symmetric. Diffuse soft tissue edema. Small plantar calcaneal spur. -------- FINAL REPORT -------- Dictated By: Sebas Polanco Dictated Date: 04/29/2022 03:11 Assigned Physician: Sebas Polanco Reviewed and Electronically Signed By: Sebas Polanco Signed Date: 04/29/2022 03:12 Workstation ID: [id number] Transcribed By: Self Edit Transcribed Date: 04/29/2022 03:11 [facility] Radiology Study observation (narrative) [facility] No Panel InformationOrdered By: Sebas Polanco on 04-29-2022 [employer] Work Phone: Basic metabolic 2000 panelon 04-16-2022 Anion gap [Moles/Vol] 10 mmol/L [facility] Calcium [Mass/Vol] 8.8 mg/dL Low 8.9 - 10. 3 mg/dL [facility] Chloride [Moles/Vol] 103 mmol/L 98 - 10 7 mmol/L [facility] CO2 [Moles/Vol] 24 mmol/L 22 - 32 mmol/L [facility] Creatinine [Mass/Vol] 0.66 mg/dL 0.60 - 1.30 mg/dL [facility] GFR/1.73 sq M.predicted MDRD (S/P/Bld) [Vol rate/Area] 134 mL/min/{1.73_m2} >=60 mL/min/1.73m 2 [facility] Glucose [Mass/Vol] 124 mg/dL High 70 - 99 mg/dL [facility] Interpretation and review of laboratory results Abnormal [facility] Potassium [Moles/Vol] 3.7 mmol/L 3.6 - 5.1 mmol/L [facility] Sodium [Moles/Vol] 137 mmol/L 136 - 145 mmol/L [facility] Urea nitrogen [Mass/Vol] 6 mg/dL Low 8 - 20 mg/dL [facility] Urea nitrogen/Creatinine [Mass ratio] 9.1 mg/mg Low [facility] HCG ( test) Ql (U)O rdered By: Praful Alberts on 04-16-2022 Interpretation and review of laboratory results Normal [facility] Hemogram and platelets WO di fferential panel (Bld)on 04-16-2022 Basophils (Bld) [#/Vol] 0.00 10*3/uL [facility] Basophils/100 WBC (Bld) 0.4 % 0.0 - 2.0 % [facility] Eosinophils (Bld) [#/Vol] 0.20 10*3/uL [facility] Eosinophils/100 WBC (Bld) 1.7 % 0.0 - 7.0 % [facility] Erythrocyte distribution width (RBC) [Ratio] 16.6 % High 11.0 - 14.8 % [facility] Hematocrit (Bld) [Volume fraction] 31.3 % Low 35.0 - 45.0 % [facility] Hemoglobin (Bld) [Mass/Vol] 10.2 g/dL Low 12.0 - 16.0 g/dL [facility] Interpretation and review of laboratory results Abnormal [facility] Lymphocytes (Bld) [#/Vol] 3.40 10*3/uL [facility] Lymphocytes/100 WBC (Bld) 38.7 % 22.0 - 44.0 % [facility] MCH (RBC) [Entitic mass] 26.6 pg Low [facility] MCHC (RBC) [Mass/Vol] 32.6 g/dL 32.0 - 36.0 g/dL [facility] MCV (RBC) [Entitic vol] 81.6 fL [facility] Monocytes (Bld) [#/Vol] 0.40 10*3/uL [facility] Monocytes/100 WBC (Bld) 5.0 % 0.0 - 12.0 % [facility] Neutrophils (Bld) [#/Vol] 4.80 10*3/uL [facility] Neutrophils/100 WBC (Bld) 54.2 % 40.0 - 70.0 % [facility] Platelet mean volume (Bld) [Entitic vol] 7.9 fL [facility] Platelets (Bld) [#/Vol] 342 10*3/uL [facility] RBC (Bld) [#/Vol] 3.84 10*6/uL [facility] WBC (Bld) [#/Vol] 8.9 10*3/uL [facility] Microscopic method Nom (U)on 04-16-2022 Bacteria LM.HPF (Urine sed) [#/Area] Moderate Abnormal None /HPF [facility] Epithelial cells.squamous LM.HPF (Urine sed) [#/Area] Few Abnormal None /LPF [facility] Granular casts LM.HPF (Urine sed) [#/Area] 0-5 Abnormal None /LPF [facility] Interpretation and review of laboratory results [facility] Mucus Ql (Urine sed) Rare Abnormal None /LPF [facility] RBC LM.HPF (Urine sed) [#/Area] 11-25 Abnormal 0 - 5 /HPF [facility] WBC LM.HPF (Urine sed) [#/Area] 0-5 0 - 5 /HPF [facility] , urineOrdered By: Praful Aristeo on 04-16-2022 HCG ( test) Ql (U) Negative Negative [facility] Urinalysis dipstick W Reflex Microscopic panel (U)on 04-16-2022 Bilirubin Ql (U) Negative Negative mg/dL [facility] Clarity (U) Hazy Abnormal Clear [facility] Color (U) Yellow Yellow [facility] Glucose Ql (U) Normal Normal mg/dL [facility] Hemoglobin Ql (U) 250 Abnormal Negative eryth/mcL [facility] Interpretation and review of laboratory results Abnormal [facility] Ketones (U) [Mass/Vol] Negative Negat aden mg/dL [facility] Leukocyte esterase Test strip Ql (U) 25 Abnormal Negative WBCs/mcL [facility] Nitrite Ql (U) Negative Negative [facility] pH (U) 6.0 [pH] 4.5 - 8.0 [facility] Protein (U) [Mass/Vol] 30 mg/dL Abnormal Negat aden mg/dL [facility] Specific gravity (U) [Rel density] 1.020 1.002 - 1.030 [facility] Urobilinogen (U) [Mass/Vol] 1 mg/dL Abnormal Normal mg/dL [facility] XR Chest 2 Viewson FINDINGS/IMPRESSION: Cardiomediastinal silhouette unremarkable. No pneumothorax or pleural effusion. No focal consolidation or pulmonary edema. Minimal linear scarring in the left midlung is unchanged. -------- FINAL REPORT -------- Dictated By: Aditya Champagne Dictated Date: 01/16/2022 13:52 Assigned Physician: Aditya Champagne Reviewed and Electronically Signed By: Aditya Champagne Signed Date: 01/16/2022 13:53 Workstation ID: [id number] Transcribed By: Self Edit Transcribed Date: 01/16/2022 13:52 POWERSCRIBE EXAMINATION TYPE: XR CHEST 2 VIEWS DATE OF EXAM : 01/16/2022 1:45 PM HISTORY: cough COMPARISON: 08/29/2020 POWERSCRIBE Aditya Champagne MD - 01/16/2022 EXAMINATION TYPE: XR CHEST 2 VIEWS DATE OF EXAM : 01/16/2022 1:45 PM HISTORY: cough COMPARISON: 08/29/2020 IMPRESSION: FINDINGS/IMPRESSION: Cardiomediastinal silhouette unremarkable. No pneumothorax or pleural effusion. No focal consolidation or pulmonary edema. Minimal linear scarring in the left midlung is unchanged. -------- FINAL REPORT -------- Dictated By: Aditya Champagne Dictated Date: 01/16/2022 13:52 Assigned Physician: Aditya Champagne Reviewed and Electronically Signed By: Aditya Champagne Signed Date: 01/16/2022 13:53 Workstation ID: [id number] Transcribed By: Self Edit Transcribed Date: 01/16/2022 13:52 [facility] Radiology Study observation (narrative) [facility] XR Chest 2 ViewsOrdered By: Aditya Champagne on 01-16-2022 [facility] Work Phone: Basic metabolic 2000 panelon 04-13-2021 Anion gap [Moles/Vol] 10.0 mmol/L Normal 6.0-18.0 [facility] Comment on above: Performed By: #### 6 9405-9, 40382-5n2, 73957-4 ####[facility] [address], [place] [address] Calcium [Mass/Vol] 8.7 mg/dL Low 8.9-10.3 [facility] Comment on above: Performed By: #### 6 9405-9, 60913-8w7, 14036-5 ####[facility] [address], [place] [address] Chloride [Moles/Vol] 106 mmol/L Normal 98-107 [facility] Comment on above: Performed By: #### 6 9405-9, 88785-7p8, 41041-4 ####[facility] [address], [place] [address] CO2 [Moles/Vol] 23 mmol/L Normal 22-32 [facility] Comment on above: Performed By: #### 6 9405-9, 61185-5r1, 59228-6 ####[facility] [address], [place] [address] Creatinine [Mass/Vol] 0.66 mg/dL Normal 0.60-1.30 [facility] Comment on above: Performed By: #### 6 9405-9, 42825-7u3, 48065-6 ####[facility] [address], [place] [address] Glucose [Mass/Vol] 107 mg/dL High 70-99 [facility] Comment on above: Result Comment: U pdated ADA Reference Range A normal fasting glucose concentration is less than 100 mg/dL. An impaired fasting glucose concentration is 100-125 mg/dL. A provisional diagnosis of diabetes mellitus can be made when a fasting glucose concentration is greater than 125 mg/dL. Performed By: #### 6 9405-9, 88088-1p6, 25680-1 ####[facility] [[email or web address]] [address], [place] [address] Potassium [Moles/Vol] 3.6 mmol/L Normal 3.6-5.1 [facility] Comment on above: Performed By: #### 6 9405-9, 53275-2e9, 05591-4 ####[facility] [[email or web address]] [address], [place] [address] Sodium [Moles/Vol] 139 mmol/L Normal 136-145 [facility] Comment on above: Performed By: #### 6 9405-9, 05802-2q9, 19168-0 ####[facility] [[email or web address]] [address], [place] [address] Urea nitrogen (BldV) [Mass/Vol] 6 mg/dL Low 8-20 [facility] Comment on above: Performed By: #### 6 9405-9, 96362-9p1, 88258-5 ####[facility] [[email or web address]] [address], [place] [address] ED Pat Eduon 04-13-2021 ED Pat Edu [facility] [address], [place] [address] Emergency Department Discharge Instructions CECILIA SENIOR, Please provide this information to your Primary Care/Specialist Name: CECILIA SENIOR Current Date : 04/13/2021 03:16:36 : 1990 Primary Care Physician: Rachel Quiles MD Diagnosis : Follow-Up Instructions: CECILIA SENIOR has been given these follow-up instructions: FOLLOW-UP APPOINTMENTS: Provider: Specialty: Address: Date: Rachel Quiles MD Internal Medicine; Pulmonary Disease [address] [address] [phone] (1) 3 to 4 days Provider: Specialty: Address: Date: Follow up with primary care provider 3 to 4 days Laboratory Orders: Name: Status: Basic Metabolic Panel Completed GFRaa Completed GFRbb Completed Radiology Orders: None Ordered Diagnostic Tests: None Ordered Procedure(s) and Patient Education(s) : Work Release 1 Day No restrictions [place] ([facility]); [facility] DVT Instructions (Custom); Peripheral Edema; [facility] List (Custom) EMERGENCY SERVICES MEDICATION LIST Lista de Medicaciones de los Servicios de Emergencia Name CECILIA SENIOR MRN ([facility])-[id number] Acct# PLEASE READ THE FOLLOWING REGARDING YOUR MEDICATIONS Based on the information available during your visit we have given you the medication instructions below. Continue taking medications you took prior to your visit unless you have been told to change. Please share this information with your own doctor. Carry a list of your medications with you in case of an emergency. Update it when medications are stopped, doses are changed, or new medications (including [id number] products) are added. If you have any questions, check with your doctor. Por la informaci??n disponible ronda jimenez visita, las instrucciones de medicaci??n aparecen debajo. Favor de continuar tomando las medicaciones Ud. cory?? antes de jimenez visita por lo menos que hay cambios. Favor de compartir esta informaci??n con jimenez medico. Lleva adebayo lista de medicaciones consigo por isaiah de emergenc??a. Actualiza la lista cuando Ud. brittany de anuel las medicaciones, si cambian las dosis, o si hay nuevas medicaciones a??adidas (incluyendo medicaciones vendidas sin prescripci??n). Favor de preguntar a jimenez medico por cualquier justin. THESE ARE THE MEDICATIONS YOU SHOULD BE TAKING furosemide (Lasix 20 mg oral tablet) 1 Tab(s) By Mouth once a day for 21 Days. Refills: 0. ondansetron (Zofran ODT 4 mg oral tablet, disintegrating) 1 Tab(s) Under the Tongue every 8 hours as needed Nausea and Vomitting for 3 Days. Refills: 0. ondansetron (Zofran ODT 4 mg oral tablet, disintegrating) 1 Tab(s) By Mouth 3 Times a day as needed Nausea and Vomitting for 3 Days. Refills: 0. MEDICATIONS GIVEN DURING MEDICAL VISIT acetaminophen 650 mg last dose given on 04/13/2021 at 02:04 Route: By Mouth Maximum 4 Gm Acetaminophen/Day for Adults enoxaparin 160 mg last dose given on 04/13/2021 at 02:04 Route: Subcutaneous Check daily for signs of bleeding and notify physician if bleeding noted. Target Dose: Lovenox 1 mg/kg 04/13/2021 01:50:32*Standardize d* furosemide 20 mg last dose given on 04/13/2021 at 03:10 Route: By Mouth NON-MEDICATION PRESCRIPTION ORDERS: Outpatient Ultrasound Ultrasound Exam: US Other Other Ultrasound Exam: Bilateral lower extremity venous duplex scan Diagnosis / Reason: bilateral lower leg pain Complete Within: 1 to 2 days Reporting Priority: Routine Special Instructions (255 Character Limit): Go to [facility] later today (04/13/2021) this morning at 10AM to register. Your appointment time is 10:30am. By appointment only. Please call the number on your discharge instructions to schedule an appointment and bring this prescription with you. NON-MEDICATION PRESCRIPTION SCHEDULING PHONE NUMBER: MEDICATION CHANGE DETAILS (Not your Final Home Medication List) During the course of your visit, your home medication list was updated with the most current information. The details of those changes are shown below: NEW MEDICATIONS Printed Prescriptions furosemide (Lasix 20 mg oral tablet) 1 Tab(s) By Mouth once a day for 21 Days. Refills: 0. Comment UPDATED MEDICATIONS None UNCHANGED MEDICATIONS Other Medications ondansetron (Zofran ODT 4 mg oral tablet, disintegrating) 1 Tab(s) Under the Tongue every 8 hours as needed Nausea and Vomitting for 3 Days. Refills: 0. Comment ondansetron (Zofran ODT 4 mg oral tablet, disintegrating) 1 Tab(s) By Mouth 3 Times a day as needed Nausea and Vomitting for 3 Days. Refills: 0. Comment STOP TAKING THESE MEDICATIONS None DO NOT TAKE UNTIL YOU TALK TO YOUR DOCTOR None [facility] [address] [facility] (more content not included)... Normal [facility] GFR/1.73 sq M.predicted (S/P /Bld) [Vol rate/Area]on 04-13-2021 GFR/1.73 sq M.predicted among blacks MDRD (S/P/Bld) [Vol rate/Area] mL/min/{1.73_m2} Normal [facility] Comment on above: Result Comment: The MDRD equation has not been validated for those over 70 years, women, patients with serious co-morbid conditions, or with extremes of body size, muscle mass of nutritional status. Performed By: #### 6 9405-9, 57695-9y6, 06071-8 ####[address] [address] GFRbbon 04-13-2021 GFR/1.73 sq M.predicted among non-blacks MDRD (S/P/Bld) [Vol rate/Area] mL/min/{1.73_m2} Normal [facility] Comment on above: Performed By: #### 6 9405-9, 90212-4r6, 46900-7 ####[address] [address] Basic metabolic 2000 panelon 12-10-2020 Anion gap [Moles/Vol] 10.0 mmol/L Normal 6.0-18.0 Mo [facility] Comment on above: Performed By: #### 6 9405-9, 60667-3v4, 3040-3, 81247-8, 62041-7 ####[address] [address] Calcium [Mass/Vol] 9.1 mg/dL Normal 8.9-10.3 [facility] Comment on above: Performed By: #### 6 9405-9, 01718-1m3, 3040-3, 76834-3, 49002-4 ####[address] [address] Chloride [Moles/Vol] 103 mmol/L Normal 98-107 [facility] [place] Comment on above: Performed By: #### 6 9405-9, 90271-5m3, 3040-3, 74938-2, 27561-1 ####[facility] [address], [place] [address] CO2 [Moles/Vol] 26 mmol/L Normal 22-32 [facility] Comment on above: Performed By: #### 6 9405-9, 96134-2u0, 3040-3, 63714-5, 83548-0 ####[facility] [address], [place] [address] Creatinine [Mass/Vol] 0.67 mg/dL Normal 0.60-1.30 [facility] Comment on above: Performed By: #### 6 9405-9, 70981-1y1, 3040-3, 14901-6, 52043-3 ####[facility] [address], [place] [address] Glucose [Mass/Vol] 150 mg/dL High 70-99 [facility] Comment on above: Result Comment: U pdated ADA Reference Range A normal fasting glucose concentration is less than 100 mg/dL. An impaired fasting glucose concentration is 100-125 mg/dL. A provisional diagnosis of diabetes mellitus can be made when a fasting glucose concentration is greater than 125 mg/dL. Performed By: #### 6 9405-9, 97708-3n6, 3040-3, 02458-5, 99349-5 ####[facility] [address], [place] [address] Potassium [Moles/Vol] 4.2 mmol/L Normal 3.6-5.1 [facility] Comment on above: Performed By: #### 6 9405-9, 11238-2j5, 3040-3, 14306-6, 59033-2 ####[facility] [address] [place], [place] [address] Sodium [Moles/Vol] 139 mmol/L Normal 136-145 [facility] Comment on above: Performed By: #### 6 9405-9, 56731-3i5, 3040-3, 39331-7, 05598-9 ####[address] [address] Urea nitrogen (BldV) [Mass/Vol] 10 mg/dL Normal 8-20 [facility] Comment on above: Performed By: #### 6 9405-9, 44247-5d5, 3040-3, 93582-3, 28081-5 ####[address] [address] CBC W Auto Differential pane l (Bld)on 12-10-2020 Basophils (Bld) [#/Vol] 0.00 thou/mcL Normal 0.00-0.20 [facility] Comment on above: Performed By: #### 5 7021-8 ####04 [address] [address] Basophils/100 WBC (Bld) 0.4 % Normal 0.0-2.0 [facility] Comment on above: Performed By: #### 5 7021-8 ####[address] [address] Eosinophils (Bld) [#/Vol] 0.10 thou/mcL Normal 0.00-0.70 [facility] Comment on above: Performed By: #### 5 7021-8 ####[address] [address] Eosinophils/100 WBC (Bld) 1.1 % Normal 0.0-7.0 [facility] Comment on above: Performed By: #### 5 7021-8 ####[address] [address] Erythrocyte distribution width (RBC) [Entitic vol] 14.7 % Normal 11.0-14.8 [facility] Comment on above: Performed By: #### 5 7021-8 ####[address] [address] Hematocrit (Bld) [Volume fraction] 39.4 % Normal 35.0-45.0 [facility] Comment on above: Performed By: #### 5 7021-8 ####[address] [address] Hemoglobin (Bld) [Mass/Vol] 12.9 g/dL Normal 12.0-16.0 [facility] Comment on above: Performed By: #### 5 7021-8 ####[address] [address] Lymphocytes (Bld) [#/Vol] 1.50 thou/mcL Normal 1.00-4.80 [facility] Comment on above: Performed By: #### 5 7021-8 ####[address] [address] Lymphocytes/100 WBC (Bld) 12.4 % Low 22.0-44.0 [facility] Comment on above: Performed By: #### 5 7021-8 ####[address] [address] MCH (RBC) [Entitic mass] 29.0 Picograms Normal 27.0-34.0 [facility] Comment on above: Performed By: #### 5 7021-8 ####[address] [address] MCHC (RBC) [Mass/Vol] 32.8 g/dL Normal 32.0-36.0 [facility] Comment on above: Performed By: #### 5 7021-8 ####[address] [address] MCV (RBC) [Entitic vol] 88.5 fL Normal 80.0-97.0 [facility] Comment on above: Performed By: #### 5 7021-8 ####[address] [address] Monocytes (Bld) [#/Vol] 0.70 thou/mcL Normal 0.00-0.90 [facility] Comment on above: Performed By: #### 5 7021-8 ####[facility] [address] [address] Monocytes/100 WBC (Bld) 5.7 % Normal 0.0-12.0 [facility] Comment on above: Performed By: #### 5 7021-8 ####[address] [address] Neutrophils (Bld) [#/Vol] 10.00 thou/mcL High 1.80-7.70 [facility] Comment on above: Performed By: #### 5 7021-8 ####[address] [address] Neutrophils/100 WBC (Bld) 80.4 % High 40.0-70.0 [facility] Comment on above: Performed By: #### 5 7021-8 ####[address] [address] Platelet mean volume (Bld) [Entitic vol] 7.5 fL Normal 6.2-12.1 [facility] Comment on above: Performed By: #### 5 7021-8 ####[address] [address] Platelets (Bld) [#/Vol] 278 thou/mcL Normal 142-424 [facility] Comment on above: Performed By: #### 5 7021-8 ####[address] [address] RBC (Bld) [#/Vol] 4.45 million/mcL Normal 3.80-5.10 [facility] Comment on above: Performed By: #### 5 7021-8 ####[facility] [address] [address] WBC (Bld) [#/Vol] 12.4 thou/mcL High 4.6-10.2 [facility] Comment on above: Performed By: #### 5 7021-8 ####[facility] [address] [place], [place] [address] ED [facility] 12-10-2020 ED [facility] Emergency Department [address] [place], [place] [address] Emergency Department Discharge Instructions CECILIA SENIOR, Please provide this information to your Primary Care/Specialist Name: CECILIA SENIOR Current Date : 12/10/2020 06:05:18 : 1990 Primary Care Physician: Physician, PCP Unknown Diagnosis : Follow-Up Instructions: CECILIA SENIOR has been given these follow-up instructions: FOLLOW-UP APPOINTMENTS: Provider: Specialty: Address: Date: [facility] [address] [facility] [address] (2) 5 days Provider: Specialty: Address: Date: Follow up with primary care provider 5 days Laboratory Orders: Name: Status: Basic Metabolic Panel Completed CBC with Differential Completed Lipase Completed Hepatic Function Panel Completed GFRaa Completed GFRbb Completed Radiology Orders: None Ordered Diagnostic Tests: None Ordered Procedure(s) and Patient Education(s) : Diarrhea, Adult; Nausea and Vomiting, Adult; Abdominal Pain (Custom) EMERGENCY SERVICES MEDICATION LIST Lista de Medicaciones de los Servicios de Emergencia Name CECILIA SENIOR MRN ([facility])-[id number] Acct# PLEASE READ THE FOLLOWING REGARDING YOUR MEDICATIONS Based on the information available during your visit we have given you the medication instructions below. Continue taking medications you took prior to your visit unless you have been told to change. Please share this information with your own doctor. Carry a list of your medications with you in case of an emergency. Update it when medications are stopped, doses are changed, or new medications (including jaug-cgo-xdffkau products) are added. If you have any questions, check with your doctor. Por la informaci??n disponible ronda jimenez visita, las instrucciones de medicaci??n aparecen debajo. Favor de continuar tomando las medicaciones Ud. cory?? antes de jimenez visita por lo menos que hay cambios. Favor de compartir esta informaci??n con jimenez medico. Lleva adebayo lista de medicaciones consigo por isaiah de emergenc??a. Actualiza la lista cuando Ud. brittany de anuel las medicaciones, si cambian las dosis, o si hay nuevas medicaciones a??adidas (incluyendo medicaciones vendidas sin prescripci??n). Favor de preguntar a jimenez medico por cualquier justin. THESE ARE THE MEDICATIONS YOU SHOULD BE TAKING loperamide (Imodium A-D 2 mg oral tablet) Take 2 tablets PO with 1st loose stool. May take 1 tab PO for each additional loose stool. Do not to exceed 8 capsules, or 16 mg, in 24 hours; as needed for loose stools. Refills: 0. ondansetron (Zofran ODT 4 mg oral tablet, disintegrating) 1 Tab(s) By Mouth 3 Times a day as needed Nausea and Vomitting for 3 Days. Refills: 0. ondansetron (Zofran ODT 4 mg oral tablet, disintegrating) 1 Tab(s) Under the Tongue every 8 hours as needed Nausea and Vomitting for 3 Days. Refills: 0. MEDICATIONS GIVEN DURING MEDICAL VISIT ondansetron 8 mg last dose given on 12/10/2020 at 04:00 Route: By Mouth prochlorperazine 5 mg last dose given on 12/10/2020 at 05:07 Route: IV Push Administer up to 5 mg/minute (for IV Push) Sodium Chloride 0.9% 1,000 mL last dose given on 12/10/2020 at 05:10 Route: Intravenous Bolus, Infuse over 60 mins. diphenhydramine 25 mg last dose given on 12/10/2020 at 05:17 Route: IV Push Administer at 25 mg/min (for IV Push). NON-MEDICATION PRESCRIPTION SCHEDULING PHONE NUMBER: MEDICATION CHANGE DETAILS (Not your Final Home Medication List) During the course of your visit, your home medication list was updated with the most current information. The details of those changes are shown below: NEW MEDICATIONS Printed Prescriptions loperamide (Imodium A-D 2 mg oral tablet) Take 2 tablets PO with 1st loose stool. May take 1 tab PO for each additional loose stool. Do not to exceed 8 capsules, or 16 mg, in 24 hours; as needed for loose stools. Refills: 0. Comment UPDATED MEDICATIONS [address]CTOR[address] [place] [phone], [phone] Start: ondansetron (Zofran ODT 4 mg oral tablet, disintegrating) 1 Tab(s) Under the Tongue every 8 hours as needed Nausea and Vomitting for 3 Days. Refills: 0. Comment Other Medications Start: ondansetron (Zofran ODT 4 mg oral tablet, disintegrating) 1 Tab(s) By Mouth 3 Times a day as needed Nausea and Vomitting for 3 Days. Refills: 0. Comment UNCHANGED MEDICATIONS None STOP TAKING THESE MEDICATIONS None DO NOT TAKE UNTIL YOU TALK TO YOUR DOCTOR None [facility] Emergency Department [address] [place], [place] [id number] Emergency Department Discharge Instructions Name: CECILIA SENIOR Current Date:12/10/2020 06:05:18 :1990 Primary Physician:Physician, PCP Unknown We would like to thank you for choosing (more content not included)... Normal [facility] GFR/1.73 sq M.predicted (S/P /Bld) [Vol rate/Area]on 12-10-2020 GFR/1.73 sq M.predicted among blacks MDRD (S/P/Bld) [Vol rate/Area] mL/min/{1.73_m2} Normal [facility] Comment on above: Result Comment: The MDRD equation has not been validated for those over 70 years, women, patients with serious co-morbid conditions, or with extremes of body size, muscle mass of nutritional status. Performed By: #### 6 9405-9, 65550-0o5, 3040-3, 30202-8, 69672-3 ####[facility] [address] [place], [place] [address] GFRbbon 12-10-2020 GFR/1.73 sq M.predicted among non-blacks MDRD (S/P/Bld) [Vol rate/Area] mL/min/{1.73_m2} Normal [facility] Comment on above: Performed By: #### 6 9405-9, 47997-6r9, 3040-3, 83085-7, 91708-4 ####[facility] [address] [place], [place] [address] Hepatic function 2000 panelo n 12-10-2020 Albumin [Mass/Vol] 3.7 g/dL Normal 3.5-4.8 [facility] Comment on above: Performed By: #### 6 9405-9, 61500-4p7, 3040-3, 01729-3, 84863-5 ####[facility] [address] [place], [place] [address] ALP [Catalytic activity/Vol] 75 Units/L Normal 32-91 [facility] Comment on above: Performed By: #### 6 9405-9, 62487-1t4, 3040-3, 66782-7, 32110-9 ####[facility] [address] [place], [place] [address] ALT [Catalytic activity/Vol] 33 Units/L Normal 14-63 [facility] Comment on above: Result Comment: Ezio durham note: Change in reference range for ALT occurred on 07/04/20 at [facility], [facility], and [facility]. Performed By: #### 6 9405-9, 75353-6s2, 3040-3, 10874-4, 54261-3 ####[facility] [address] [place], [place] [address] AST [Catalytic activity/Vol] 40 Units/L Normal 15-41 [facility] Comment on above: Performed By: #### 6 9405-9, 60667-9j9, 3040-3, 46608-0, 36922-4 ####[facility] [address], [place] [address] Bilirubin [Mass/Vol] 0.5 mg/dL Normal 0.3-1.2 [facility] Comment on above: Performed By: #### 6 9405-9, 18901-0j0, 3040-3, 09956-1, 39658-6 ####[facility] [address], [place] [address] Bilirubin.direct [Mass/Vol] mg/dL Abnormal 0.1-0.5 [facility] Comment on above: Performed By: #### 6 9405-9, 07626-6r2, 3040-3, 15569-7, 76891-7 ####[facility] [address] [place], [place] [address] Bilirubin.indirect [Mass/Vol] 0.5 mg/dL Normal 0.0-1.0 [facility] Comment on above: Performed By: #### 6 9405-9, 61023-6x8, 3040-3, 31948-8, 71895-4 ####[facility] [address] [place], [place] [address] Protein [Mass/Vol] 7.5 g/dL Normal 6.1-7.9 [facility] Comment on above: Performed By: #### 6 9405-9, 88454-3v3, 3040-3, 08154-0, 65566-4 ####[facility] [address] [place], [place] [address] Lipaseon 12-10-2020 Lipase [Catalytic activity/Vol] 40 Units/L Normal 22-51 [facility] Comment on above: Result Comment: Ezio durham note: Change in reference range for LIP occurred on 07/04/20 at [facility], [facility], and [facility]. Performed By: #### 6 9405-9, 59099-5j1, 3040-3, 72419-6, 31282-8 ####[facility] [address] [place], [place] [address] Coronavirus (COVID-19/SARS-C oV-2) RAPIDon 08-29-2020 Employed in healthcare No [facility] Comment on above: Performed By: #### 9 4532-9x2 #### [facility] [address] [place] [address] [facility] Comment on above: Performed By: #### 9 4532-9x2 #### [facility] [address] [place] [address] [facility] Comment on above: Performed By: #### 9 4532-9x2 #### [facility] [address] [place] [address] Illness or injury onset date and time UNKNOWN [facility] Comment on above: Performed By: #### 9 4532-9x2 #### [facility] [address] [place] [address] Patient was hospitalized because of this condition No [facility] Comment on above: Performed By: #### 9 4532-9x2 #### [facility] [address] [place] [address] status [facility] Comment on above: Performed By: #### 9 4532-9x2 #### [facility] [address] [place] [address] Resides in congregate care setting No [facility] Comment on above: Performed By: #### 9 4532-9x2 #### [facility] [address] [place] [address] SARS-CoV-2 (COVID-19) RNA MARISOL+probe Ql (Resp) Not detected [place] [facility] Comment on above: Result Comment: This test was performed via the Silvestre ID NOW COVID-19 assay and has been authorized by FDA under an Emergency Use Authorization (EUA). The assay is validated for nasopharyngeal (PROMOTIONS ASSISTANT), nasal, and oropharyngeal (OP) direct swabs. The limit of detection of the assay is approximately 125 genome equivalence/mL; however, detection of SARS-CoV-2 may be affected by the sample collection and transport methods, patient factors (e.g., presence of symptoms, and/or stage of infection), and a negative result does not rule out the possibility of infection. For updated information, refer to the Center for Disease Control website: www.cdc.gov/coronavirus. Performed By: #### 9 4532-9x2 #### [facility] [address] [place] [address] Symptomatic as defined by CDC Yes Normal [facility] Comment on above: Performed By: #### 9 4532-9x2 #### [facility] [address] [place] [address] ED Pat Eduon 08-29-2020 ED Pat Edu [address] [address] Emergency Department Discharge Instructions PARRISHCECILIA, Please provide this information to your Primary Care/Specialist Name: CECILIA SENIOR Current Date : 08/29/2020 20:59:42 : 1990 Primary Care Physician: MD Matthews Wood Self-Referral Diagnosis : Follow-Up Instructions: CECILIA SENIOR been given these follow-up instructions: Laboratory Orders: Name: Status: Coronavirus (COVID-19/SARS-CoV-2 ) RAPID Completed Radiology Orders: Name: Status: XR Chest 2 Views Completed Diagnostic Tests: None Ordered Procedure(s) and Patient Education(s) : Work Release 3 days no restrictions - CO-GC (Custom); Viral illness ([id number]) EMERGENCY SERVICES MEDICATION LIST Lista de Medicaciones de los Servicios de Emergencia Name CECILIA SENIOR MRN ([facility])-[id number] PLEASE READ THE FOLLOWING REGARDING YOUR MEDICATIONS Based on the information available during your visit we have given you the medication instructions below. Continue taking medications you took prior to your visit unless you have been told to change. Please share this information with your own doctor. Carry a list of your medications with you in case of an emergency. Update it when medications are stopped, doses are changed, or new medications (including egfv-ahx-nuwalvv products) are added. If you have any questions, check with your doctor. Por la informaci??n disponible ronda jimenez visita, las instrucciones de medicaci??n aparecen debajo. Favor de continuar tomando las medicaciones Ud. cory?? antes de jimenez visita por lo menos que hay cambios. Favor de compartir esta informaci??n con jimenez medico. Lleva adebayo lista de medicaciones consigo por isaiah de emergenc??a. Actualiza la lista cuando Ud. brittany de anuel las medicaciones, si cambian las dosis, o si hay nuevas medicaciones a??adidas (incluyendo medicaciones vendidas sin prescripci??n). Favor de preguntar a jimenez medico por cualquier justin. THESE ARE THE MEDICATIONS YOU SHOULD BE TAKING ondansetron (Zofran ODT 4 mg oral tablet, disintegrating) 1 Tab(s) By Mouth 3 Times a day as needed Nausea and Vomitting for 3 Days. Refills: 0. MEDICATIONS GIVEN DURING MEDICAL VISIT None NON-MEDICATION PRESCRIPTION SCHEDULING PHONE NUMBER: MEDICATION CHANGE DETAILS (Not your Final Home Medication List) During the course of your visit, your home medication list was updated with the most current information. The details of those changes are shown below: NEW MEDICATIONS Printed Prescriptions ondansetron (Zofran ODT 4 mg oral tablet, disintegrating) 1 Tab(s) By Mouth 3 Times a day as needed Nausea and Vomitting for 3 Days. Refills: 0. Comment UPDATED MEDICATIONS None UNCHANGED MEDICATIONS None STOP TAKING THESE MEDICATIONS None DO NOT TAKE UNTIL YOU TALK TO YOUR [place] [address] Emergency Department Discharge Instructions Name: PARRISH CECILIA Shoemaker Current Date: 08/29/2020 20:59:42 :1990 [facility]; Primary Physician: MD Matthews Wood Self-Referral We would like to thank you for choosing [facility] for your emergency medical needs. We examined and treated you today on an emergency basis only. This was not a substitute for, or an effort to provide, complete medical care. In most cases, you must let your doctor (or the doctor we referred you to) check you again. Tell your doctor about any new or lasting problems. We cannot recognize and treat all injuries or illnesses in one emergency department visit. After you leave, you should follow the directions attached. When arranging for follow-up care with your physician/referral identify yourself as being seen in the emergency department. Instructions for obtaining X-rays: When following up with your doctor, you may need to take copies of your x-rays that were done in the Emergency Department. If you didn't receive these upon your discharge from the emergency department, please call . When the final report becomes available and it is reviewed, the emergency department will attempt to contact you if there are any changes in your instructions. It is important that you leave accurate information with us on how to contact you. IF you cannot be contacted, YOU must contact the follow-up doctor that you were assigned to make sure that the final official x-ray report does not require a change in your treatment. Instructions for obtaining medical records: If you need a copy of your medical records for follow-up, please contact the Health Information Management Department at . Their office hoursare 8 AM- 4:30 PM, Wednesday through Wednesday. Please note: Results are not immediately available. Please allow a minimum of 36 hours for documentation and results. (more content not included)... Normal [facility] XR Chest 2 Viewson 1 XR Chest 2 Views EXAMINATION TYPE: XR Chest 2 Views DATE OF EXAM: 08/29/2020 6:13 PM HISTORY: Cough, COMPARISON: 04/11/2020 NUMBER OF VIEWS: 2, PA and Lateral. FINDINGS: The heart is normal in size and the mediastinal outlines are normal in appearance. The lungs appear to be free of active infiltrates. The pulmonary vascular markings are within normal limits. The visualized bones and soft tissues are unremarkable. Minor scar left midlung. IMPRESSION: No active chest disease. Rolette thanks you for the opportunity to care for your patient. Workstation ID: [id number] FINAL REPORT Dictated By: Jamal Joseph MD 08/29/2020 18:19 Assigned Physician: Jamal Joseph MD Reviewed and Electronically Signed By: Jamal Joseph MD 08/29/2020 18:19 Transcribed by: JAVI 08/29/2020 18:19 Technologist: AUDREY FAJARDO [facility] ED Pat Eduon 07-11-2020 ED Pat [facility] [address] [place], [place] [id number] Emergency Department Discharge Instructions PARRISHCECILIA, Please provide this information to your Primary Care/Specialist Name: CECILIA SENIOR Current Date : 07/11/2020 07:10:48 : 1990 Primary Care Physician: Physician, Sandy PCP Diagnosis : Knee sprain Follow-Up Instructions: CECILIA SENIOR been given these follow-up instructions: FOLLOW-UP APPOINTMENTS: Provider: Specialty: Address: Date: PCP Unknown Physician Family Practice Follow-up as needed Provider: Specialty: Address: Date: [facility]) [address] [place] [address] [address] , [address] Floor, [address] [facility] [address] (5) 1 to 2 days Comment: Call for an Appointment to see the orthopedic clinic Laboratory Orders: None Ordered Radiology Orders: None Ordered Diagnostic Tests: None Ordered Procedure(s) and Patient Education(s) : Surgery for Anterior Cruciate Ligament Tear With Phase I Rehab-[facility] EMERGENCY SERVICES MEDICATION LIST Lista de Medicaciones de los Servicios de Emergencia Name CECILIA SENIOR MRN ([facility])-[id number] PLEASE READ THE FOLLOWING REGARDING YOUR MEDICATIONS Based on the information available during your visit we have given you the medication instructions below. Continue taking medications you took prior to your visit unless you have been told to change. Please share this information with your own doctor. Carry a list of your medications with you in case of an emergency. Update it when medications are stopped, doses are changed, or new medications (including disy-qgg-xosbbck products) are added. If you have any questions, check with your doctor. Por la informaci??n disponible ronda jimenez visita, las instrucciones de medicaci??n aparecen debajo. Favor de continuar tomando las medicaciones Ud. cory?? antes de jimenez visita por lo menos que hay cambios. Favor de compartir esta informaci??n con jimenez medico. Lleva adebayo lista de medicaciones consigo por isaiah de emergenc??a. Actualiza la lista cuando Ud. brittany de anuel las medicaciones, si cambian las dosis, o si hay nuevas medicaciones a??adidas (incluyendo medicaciones vendidas sin prescripci??n). Favor de preguntar a jimenez medico por cualquier justin. THESE ARE THE MEDICATIONS YOU SHOULD BE TAKING acetaminophen-HYDROc odone ([place] 325 mg-5 mg oral tablet) 1 Tab(s) By Mouth every 6 hours as needed for pain for 3 Days. *Caution: this medication causes sedation, do not drive or operate heavy machinery or drink alcohol while taking *Caution: this medication is addictive, take only as prescribed. Refills: 0. Diagnosis: Knee sprain [S83.90XA] MEDICATIONS GIVEN DURING MEDICAL VISIT acetaminophen-hydroc odone 1 Tab last dose given on 07/11/2020 at 06:31 Route: By Mouth Maximum 4 Gm Acetaminophen/Day for Adults NON-MEDICATION PRESCRIPTION SCHEDULING PHONE NUMBER: MEDICATION CHANGE DETAILS (Not your Final Home Medication List) During the course of your visit, your home medication list was updated with the most current information. The details of those changes are shown below: NEW MEDICATIONS Printed Prescriptions acetaminophen-HYDROc odone ([place] 325 mg-5 mg oral tablet) 1 Tab(s) By Mouth every 6 hours as needed for pain for 3 Days. *Caution: this medication causes sedation, do not drive or operate heavy machinery or drink alcohol while taking *Caution: this medication is addictive, take only as prescribed. Refills: 0. Comment UPDATED MEDICATIONS None UNCHANGED MEDICATIONS None STOP TAKING THESE MEDICATIONS None DO NOT TAKE UNTIL YOU TALK TO YOUR DOCTOR None [address] [address] Emergency Department Discharge Instructions Name: CECILIA SENIOR Current Date: 07/11/2020 07:10:48 :1990 nbsp; Primary Physician: Physician, No PCP We would like to thank you for choosing [facility] for your emergency medical needs. We examined and treated you today on an emergency basis only. This was not a substitute for, or an effort to provide, complete medical care. In most cases, you must let your doctor (or the doctor we referred you to) check you again. Tell your doctor about any new or lasting problems. We cannot recognize and treat all injuries or illnesses in one emergency department visit. After you leave, you should follow the directions attached. When arranging for follow-up care with your physician/referral identify yourself as being seen in the emergency department. Instructions for obtaining X-rays: When following up with your doctor, you may need to take copies of your x-rays that were done in the Emergency Department. If you didn't receive these upon your discharge from the emergency department, please call [phone] (more content not included)... Normal [facility] ED Pat Eduon 07-04-2020 ED Pat [facility] Emergency Department [address] [address] Emergency Department Discharge Instructions CECILIA SENIOR, Please provide this information to your Primary Care/Specialist Name: CECILIA SENIOR Current Date : 07/03/2020 23:03:26 : 1990 Primary Care Physician: Physician, No PCP Diagnosis : Follow-Up Instructions: CECILIA SENIOR has been given these follow-up instructions: FOLLOW-UP APPOINTMENTS: Provider: Specialty: Address: Date: No PCP Physician Family Practice; Internal Medicine Follow-up as needed Provider: Specialty: Address: Date: [facility] [address], [address] [facility] [id number] (3) Follow-up as needed Comment: call for ortho clinic f/u if no better in 7 days Laboratory Orders: None Ordered Radiology Orders: Name: Status: XR Knee 4+ Views RT Completed Diagnostic Tests: None Ordered Procedure(s) and Patient Education(s) : Knee Sprain EMERGENCY SERVICES MEDICATION LIST Lista de Medicaciones de los Servicios de Emergencia Name CECILIA SENIOR MRN [facility]-[id number] Acct# PLEASE READ THE FOLLOWING REGARDING YOUR MEDICATIONS Based on the information available during your visit we have given you the medication instructions below. Continue taking medications you took prior to your visit unless you have been told to change. Please share this information with your own doctor. Carry a list of your medications with you in case of an emergency. Update it when medications are stopped, doses are changed, or new medications (including [id number] products) are added. If you have any questions, check with your doctor. Por la informaci??n disponible ronda jimenez visita, las instrucciones de medicaci??n aparecen debajo. Favor de continuar tomando las medicaciones Ud. cory?? antes de jimenez visita por lo menos que hay cambios. Favor de compartir esta informaci??n con jimenez medico. Lleva adebayo lista de medicaciones consigo por isaiah de emergenc??a. Actualiza la lista cuando Ud. brittany de anuel las medicaciones, si cambian las dosis, o si hay nuevas medicaciones a??adidas (incluyendo medicaciones vendidas sin prescripci??n). Favor de preguntar a jimenez medico por cualquier justin. THESE ARE THE MEDICATIONS YOU SHOULD BE TAKING naproxen (Naprosyn 250 mg oral tablet) 2 Tab(s) By Mouth Twice a day as needed Pain - Mild for 7 Days. with food. Refills: 0. MEDICATIONS GIVEN DURING MEDICAL VISIT acetaminophen-hydroc odone 1 Tab last dose given on 07/03/2020 at 22:21 Route: By Mouth Maximum 4 Gm Acetaminophen/Day for Adults NON-MEDICATION PRESCRIPTION SCHEDULING PHONE NUMBER: MEDICATION CHANGE DETAILS (Not your Final Home Medication List) During the course of your visit, your home medication list was updated with the most current information. The details of those changes are shown below: NEW MEDICATIONS Printed Prescriptions naproxen (Naprosyn 250 mg oral tablet) 2 Tab(s) By Mouth Twice a day as needed Pain - Mild for 7 Days. with food. Refills: 0. Comment UPDATED MEDICATIONS None UNCHANGED MEDICATIONS None STOP TAKING THESE MEDICATIONS None DO NOT TAKE UNTIL YOU TALK TO YOUR DOCTOR None [facility] Emergency Department [address] [place], [place] [address] Emergency Department Discharge Instructions Name: CECILIA SENIOR Current Date:07/03/2020 23:03:26 :1990 Primary Physician:Physician, No PCP We would like to thank you for choosing [facility] for your emergency medical needs. We examined and treated you today on an emergency basis only. This was not a substitute for, or an effort to provide, complete medical care. In most cases, you must let your doctor (or the doctor we referred you to) check you again. Tell your doctor about any new or lasting problems. We cannot recognize and treat all injuries or illnesses in one emergency department visit. After you leave, you should follow the directions attached. When arranging for follow-up care with your physician/referral identify yourself as being seen in the emergency department. . Instructions for obtaining X-rays: When following up with your doctor, you may need to take copies of your x-rays that were done in the Emergency Department. If you didn't receive these upon your discharge from the emergency department, please call . When the final report becomes available and it is reviewed, the emergency department will attempt to contact you if there are any changes in your instructions. It is important that you leave accurate information with us on how to contact you. IF you cannot be contacted, YOU must contact the follow-up doctor that you were assigned to make sure that the final official x-ray report does not require a change in your tr (more content not included)... Normal [facility] XR Knee 4+ Views RTon 2019 XR Knee - right 4 Views EXAMINATION TYPE : XR Knee 4+ Views RT DATE OF EXAM : 07/03/2020 10:14 PM HISTORY: Pain Without Trauma, COMPARISON: NONE FINDINGS: Suprapatellar joint effusion. Negative for definitive fracture or dislocation. IMPRESSION: Suprapatellar joint effusion without fracture or disc patient. MRI could better assess for any internal derangement of the knee Rolette thanks you for the opportunity to care for your patient. Workstation ID: [id number] FINAL REPORT Dictated By: Gatito Overton MD 07/03/2020 22:31 Assigned Physician: Gatito Overton MD Reviewed and Electronically Signed By: Gatito Overton MD 07/03/2020 22:32 Transcribed by: JAVI 07/03/2020 22:31 Technologist: BC Normal [facility] Coronavirus (COVID-19/SARS-C oV-2) NAATon 05-18-2020 SARS-CoV-2 (COVID-19) RNA MARISOL+probe Ql (Resp) Not detected Normal [facility] Comment on above: Result Comment: This test was performed via the Aptima SARS-CoV-2 Assay (Jiberish) and has been authorized by the FDA under an Emergency Use Authorization (EUA). The assay is validated for nasopharyngeal (PROMOTIONS ASSISTANT), nasal, and oropharyngeal (OP) swab specimens. The trouble dispatcher's stated Limit of Detection is 0.01 TCID50/mL which is comparable to other nucleic acid amplification tests currently being used to test for SARS-CoV-2. Detection of SARS-CoV-2 may be affected by the sample collection, transport methods and patient factors (e.g., presence of symptoms, and/or stage of infection); therefore a negative result does not rule out the possibility of infection. For updated information, refer to the Center for Disease Control website: www.cdc.gov/coronavirus. Performed By: #### 9 [id number] #### [facility] [address] [place] [id number] HCG (QUALITATIVE)on 09-28-19 20 Beta HCG ( test) Ql Negative Negative [facility] Interpretation and review of laboratory results Normal [facility] Negative: The result is less than or equal to 5 mIU/mL of HCG. [facility] CBC WITH AUTO DIFFERENTIALon 05-25-2019 Basophils (Bld) [#/Vol] 0.02 10*3/uL [facility] Basophils/100 WBC (Bld) 0.2 % [facility] Eosinophils (Bld) [#/Vol] 0.31 10*3/uL [facility] Eosinophils/100 WBC (Bld) 2.8 % [facility] Erythrocyte distribution width (RBC) [Entitic vol] 13.4 % 11.6 - 14.8 % [facility] Hematocrit (Bld) [Volume fraction] 36.8 % 36 - 46 % [facility] Hemoglobin (Bld) [Mass/Vol] 12.6 g/dL 12 - 16 g/dL [facility] Immature granulocytes (Bld) [#/Vol] 0.04 10*3/uL [facility] Immature granulocytes/100 WBC (Bld) 0.40 % [facility] Comment on above: The IG parameter is the percentage of metamyelocytes, myelocytes, and promyelocytes. Interpretation and review of laboratory results Abnormal [facility] Lymphocytes (Bld) [#/Vol] 3.72 10*3/uL [facility] Lymphocytes/100 WBC (Bld) 33.4 % [facility] MCH (RBC) [Entitic mass] 30.7 pg 26 - 34 pg [facility] MCHC (RBC) [Mass/Vol] 34.2 g/dL 31 - 37 g/dL [facility] MCV (RBC) [Entitic vol] 89.8 fL 80 - 100 fL [facility] Monocytes (Bld) [#/Vol] 0.68 10*3/uL [facility] Monocytes/100 WBC (Bld) 6.1 % [facility] Neutrophils (Bld) [#/Vol] 6.37 10*3/uL [facility] Neutrophils/100 WBC (Bld) 57.1 % [facility] Nucleated RBC (Bld) [#/Vol] 0.00 10*3/uL [facility] Nucleated RBC/100 WBC (Bld) [Ratio] 0.0 % [facility] Platelet mean volume (Bld) [Entitic vol] 9.9 fL 9 - 15.5 fL [facility] Platelets (Bld) [#/Vol] 267 10*3/uL [facility] RBC (Bld) [#/Vol] 4.10 10*6/uL [facility] WBC (Bld) [#/Vol] 11.14 10*3/uL High [facility] Chem 7on 05-25-2019 Anion gap [Moles/Vol] 16 mmol/L 10 - 2 0 mmol/L [facility] Chloride [Moles/Vol] 105 mmol/L 98 - 10 8 mmol/L [facility] Creatinine [Mass/Vol] 0.55 mg/dL 0.4 - 1.1 mg/dL [facility] GFR/1.73 sq M predicted among non-blacks MDRD (S/P/Bld) [Vol rate/Area] The eGFR should be used for monitoring renal function only and not for medication dosing. [facility] GFR/1.73 sq M.predicted CKD-EPI (S/P/Bld) [Vol rate/Area] 145 >=60 mL/min/1.73 m2 [facility] Glucose [Mass/Vol] 103 mg/dL High 65 - 99 mg/dL [facility] HCO3 [Moles/Vol] 23 mmol/L 21 - 32 mmol/L [facility] Interpretation and review of laboratory results Abnormal [facility] Potassium [Moles/Vol] 3.9 mmol/L 3.5 - 5.1 mmol/L [facility] Sodium [Moles/Vol] 140 mmol/L 135 - 145 mmol/L [facility] Urea nitrogen [Mass/Vol] 6 mg/dL Low 8 - 25 mg/dL [facility] Urea nitrogen/Creatinine [Mass ratio] 10.9 mg/mg [facility] ECG 12-LEADon 05-25-2019 Atrial Rate 73 BPM [facility] P [place] 45 degrees [facility] P-R Interval 170 ms [facility] Q-T Interval 428 ms [facility] QRS Duration 98 ms [facility] QTC Calculation (Bezet) 471 ms [facility] R [place] 71 degrees [facility] T [place] 20 degrees [facility] Ventricular Rate 73 BPM [facility] Normal sinus rhythm Normal ECG Confirmed by Maulik Aldana MD ([id number]) on 05/25/2019 8:04:26 AM [facility] HCG (QUALITATIVE)on 05-25-20 19 Beta HCG ( test) Ql Negative Negative [facility] Negative: The result is less than or equal to 5 mIU/mL of HCG. [facility] Hepatic Function Panel (LFT) on 05-25-2019 Albumin [Mass/Vol] 3.8 g/dL 3.2 - 5.2 g/dL [facility] ALP [Catalytic activity/Vol] 74 U/L 40 - 140 U/L [facility] ALT [Catalytic activity/Vol] 14 U/L 0 - 40 U/L [facility] AST [Catalytic activity/Vol] 17 U/L 0 - 45 U/L [facility] Bilirubin [Mass/Vol] 0.2 mg/dL 0 - 1.3 mg/dL [facility] Bilirubin.conjugated [Mass/Vol] mg/dL 0 - 0.4 mg/dL [facility] Interpretation and review of laboratory results Normal [facility] Protein [Mass/Vol] 6.6 g/dL 6 - 8 g/dL [facility] NT Pro BNPon 05-25-2019 Natriuretic peptide.B prohormone N-Terminal [Mass/Vol] 67 pg/mL 0 - 300 pg/mL [facility] Pride Study Cut-offs Rule In: < /= 50 Years >450 pg/mL 51 Years - 75 Years >900 pg/mL 76 Years - 99 Years >1800 pg/mL Rule Out: All patients <300 pg/mL [facility] Otheron 05-25-2019 Extra Tube Hold for add-ons. [facility] Comment on above: Auto resulted. Interpretation and review of laboratory results Normal [facility] TROPONINon 05-25-2019 Troponin T.cardiac [Mass/Vol] ug/L <=14 ng/L [facility] Troponin T.cardiac [Mass/Vol] Normal [facility] XR CHEST AP/PA AND LATon XR CHEST AP/PA AND LAT EXAMINATION: XR CHEST AP/PA AND LAT HISTORY: bilateral leg swelling COMPARISON: Chest radiograph, 05/05/2013 FINDINGS: Cardiomediastinal silhouette is normal. The lungs are clear of any congestion or infiltrate. No pleural effusion. No acute osseous abnormality. IMPRESSION: No acute abnormality. Workstation ID: [id number] Dictated by: YANELI AMOR on [facility] May 25, 2019 3:10:35 AM EDT Transcribed by: YANELI AMOR on [facility] May 25, 2019 3:10:35 AM EDT Finalized by: YANELI AMOR on Patricia May 25, 2019 3:10:35 AM EDT Normal [facility] Comment on above: Order Comment: Injur y/Trauma or Illness?:Illness/Other How long have you had these symptoms (acute/chronic)?:Acute Reason for exam?:low ext swelling History of cancer?: Surgeries, chemotherapy, or radiation?: Type of Exam?:Initial Additional signs and symptoms?:no other complaints EXAMINATION: XR CHEST AP/PA AND LAT HISTORY: bilateral leg swelling COMPARISON: Chest radiograph, 05/05/2013 FINDINGS: Cardiomediastinal silhouette is normal. The lungs are clear of any congestion or infiltrate. No pleural effusion. No acute osseous abnormality. [facility] Interface, Rad In Fuji Speechq - 05/25/2019 3:13 AM EDT EXAMINATION: XR CHEST AP/PA AND LAT HISTORY: bilateral leg swelling COMPARISON: Chest radiograph, 05/05/2013 FINDINGS: Cardiomediastinal silhouette is normal. The lungs are clear of any congestion or infiltrate. No pleural effusion. No acute osseous abnormality. IMPRESSION: No acute abnormality. Workstation ID: [id number] [facility] No acute abnormality. Workstation ID: [id number] [facility] BMPon 01-27-2018 Anion gap 21 mmol/L High 10 - 20 mmol/L [facility] Bicarbonate (HCO3) 23 mmol/L Invalid Interpretation Code 21 - 32 mmol/L [facility] BUN/Creatinine Ratio 10.7 mg/mg Invalid Interpretation Code 10.0 - 20.0 [facility] Calcium 9.5 mg/dL Invalid Interpretation Code 8.4 - 10.2 mg/dL [facility] Chloride 101 mmol/L Invalid Interpretation Code 98 - 108 mmol/L [facility] Creatinine 0.56 mg/dL Invalid Interpretation Code 0.4 - 1.1 mg/dL [facility] eGFR (black) 146 mL/min/{1.73_m2} Invalid Interpretation Code >=60 [facility] eGFR (non-black) The eGFR should be used for monitoring renal function only and not for medication dosing. Invalid Interpretation Code [facility] Glucose 126 mg/dL High 65 - 99 mg/dL [facility] Potassium 4.0 mmol/L Invalid Interpretation Code 3.5 - 5.1 mmol/L [facility] Sodium 141 mmol/L Invalid Interpretation Code 135 - 145 mmol/L [facility] Urea nitrogen 6 mg/dL Low 8 - 25 mg/dL [facility] CBC Auto Differentialon Basophils 0.02 K/mcL Invalid Interpretation Code 0.00 - 0.30 [facility] Basophils/100 leukocytes 0.1 % Invalid Interpretation Code [facility] Eosinophils 0.02 K/mcL Invalid Interpretation Code 0.00 - 0.50 [facility] Eosinophils/100 leukocytes 0.1 % Invalid Interpretation Code [facility] Erythrocytes (RBC) 4.64 M/mcL Invalid Interpretation Code 4.00 - 5.20 [facility] Erythrocytes (RBC) 0.00 K/mcL Invalid Interpretation Code 0.00 - 0.00 [facility] Hematocrit (HCT) 42.0 % Invalid Interpretation Code 36 - 46 % [facility] Hemoglobin (HGB) 14.4 g/dL Invalid Interpretation Code 12 - 16 g/dL [facility] IG Absolute 0.09 K/mcL Invalid Interpretation Code 0.00 - 0.30 [facility] IG Percent 0.50 % Invalid Interpretation Code [facility] Lymphocytes 3.68 K/mcL Invalid Interpretation Code 0.90 - 4.00 [facility] Lymphocytes/100 leukocytes 21.6 % Invalid Interpretation Code [facility] MCH 31.0 pg Invalid Interpretation Code 26 - 34 pg [facility] MCHC 34.3 g/dL Invalid Interpretation Code 31 - 37 g/dL [facility] MCV 90.5 fL Invalid Interpretation Code 80 - 100 fL [facility] Monocytes 0.95 K/mcL High 0.30 - 0.90 [facility] Monocytes/100 leukocytes 5.6 % Invalid Interpretation Code [facility] Neutrophils 12.30 K/mcL High 1.70 - 7.00 [facility] Neutrophils/100 leukocytes 72.1 % Invalid Interpretation Code [facility] Nucleated erythrocytes/100 erythrocytes 0.0 % Invalid Interpretation Code [facility] Platelet mean volume (PMV) 10.3 fL Invalid Interpretation Code 9 - 15.5 fL [facility] Platelets 380 K/mcL Invalid Interpretation Code 150 - 400 [facility] RDW-CA 13.4 % Invalid Interpretation Code 11.6 - 14.8 % [facility] WBC (Leukocytes) 17.06 K/mcL High 4.50 - 11.00 [facility] AB CBC w/ Diffon 01-27-2018 Creatinine The following orders were created for panel order CBC w/ Diff. Procedure Abnormality Status --------- ------ CBC Auto Differential[[id number]] Abnormal Final result Please view results for these tests on the individual orders. Invalid Interpretation Code [facility] Gold Topon 01-27-2018 Extra Tube Hold for add-ons. Invalid Interpretation Code [facility] Hepatic Function Panel (LFT) on 01-27-2018 Alanine aminotransferase (ALT) 25 U/L Invalid Interpretation Code 0 - 40 U/L [facility] Albumin 4.4 g/dL Invalid Interpretation Code 3.2 - 5.2 g/dL [facility] Alkaline phosphatase (ALP) 94 U/L Invalid Interpretation Code 40 - 140 U/L [facility] Aspartate aminotransferase (AST) 26 U/L Invalid Interpretation Code 0 - 45 U/L [facility] Bilirubin (conjugated) mg/dL Invalid Interpretation Code 0 - 0.4 mg/dL [facility] Bilirubin (total) 0.6 mg/dL Invalid Interpretation Code 0 - 1.3 mg/dL [facility] Interpretation and review of laboratory results Abnormal Invalid Interpretation Code [facility] Protein 8.3 g/dL High 6 - 8 g/dL [facility] Lactic Acid, Plasmaon 2017 Lactate 1.8 mmol/L Invalid Interpretation Code 0.6 - 2 mmol/L [facility] Lipaseon 01-27-2018 Interpretation and review of laboratory results Normal Invalid Interpretation Code [facility] Lipase 39 U/L Invalid Interpretation Code 15 - 65 U/L [facility] Rienzi Topon 01-27-2018 Rienzi Top Invalid Interpretation Code [facility] [place] Drawon 01-27-2018 Creatinine The following orders were created for panel order [place] Draw. Procedure Abnormality Status --------- ------ Gold Top[[id number]] Final result Light Blue Top[[id number]] Final result Rienzi Top[[id number]] Final result Urine Culture Humphrey Conta...[[id number]] Please view results for these tests on the individual orders. Invalid Interpretation Code [facility] XR-FOOT, LEFT MIN 3 VIEWSon 04-11-2017 XR-FOOT, LEFT MIN 3 VIEWS CLINICAL INDICATION:5th metatarsal painEXAM DESCRIPTION:XR-FOOT, LEFT MIN 3 VIEWSFINDINGS:No history of injury. Bone mineral density is normal. No fractures ordislocations are identified. A calcaneal spur is present.IMPRESSION:C alcaneal spur.Read By: KOBE PAREDES MD [facility] Vital Signs Date Time Vital Sign Value Performing Clinician Facility 03-21-2025 10: Body height 175.3 cm [facility] 03-21-2025 10:040 Body mass index (BMI) [Ratio] 49.62 kg/m2 [facility] 03-21-2025 10: Body weight 152.41 kg [facility] 03-21-2025 10:17040 Heart rate 84 /min [facility] 03-16-2025 13:18-0400 Body height 175.26 cm Patrick Mcdermott PROMOTIONS ASSISTANT-C Work Phone: [facility] 03-16-2025 13:18-0400 Body mass index (BMI) [Ratio] 47.8 kg/m2 Patrick Mcdermott [employer]OMOTIONS ASSISTANT-C Work Phone: [facility] 03-16-2025 13:18-0400 Body temperature 98.6 [degF] Patrick Mcdermott PROMOTIONS ASSISTANT-C Work Phone: [facility] 03-16-2025 13:18-0400 Body weight 146.96 kg Patrick Mcdermott PROMOTIONS ASSISTANT-C Work Phone: [facility] 03-16-2025 13:18-0400 Diastolic blood pressure 114 mm[Hg] Patrick Mcdermott PROMOTIONS ASSISTANT-C Work Phone: [facility] 03-16-2025 13:18-0400 Heart rate 100 /min Patrick Mcdermott PROMOTIONS ASSISTANT-C Work Phone: [facility] 03-16-2025 13:18-0400 Respiratory rate 18 /min Patrick Mcdermott PROMOTIONS ASSISTANT-C Work Phone: [facility] 03-16-2025 13:18-0400 SaO2% (BldA) [Mass fraction] 99 % Patrick Mcdermott [employer]OMOTIONS ASSISTANT-C Work Phone: [facility] 03-16-2025 13:18-0400 Systolic blood pressure 163 mm[Hg] Patrick Mcdermott PROMOTIONS ASSISTANT-C Work Phone: [facility] 03-16-2025 00:43-0400 Body temperature 98.3 [degF] Patrick Mcdermott PROMOTIONS ASSISTANT-C Work Phone: [facility] 03-16-2025 00:43-0400 Diastolic blood pressure 90 mm[Hg] Patrick Mcdermott PROMOTIONS ASSISTANT-C Work Phone: [facility] 03-16-2025 00:43-0400 Heart rate 98 /min Patrick Mcdermott PROMOTIONS ASSISTANT-C Work Phone: [facility] 03-16-2025 00:43-0400 Respiratory rate 18 /min Patrick Mcdermott PROMOTIONS ASSISTANT-C Work Phone: [phone] [place] [address] 03-16-2025 00:43-0400 SaO2% (BldA) [Mass fraction] 100 % Patrick Mcdermott PROMOTIONS ASSISTANT-C Work Phone: [phone] [place] [address] 03-16-2025 00:43-0400 Systolic blood pressure 160 mm[Hg] Patrick Mcdermott PROMOTIONS ASSISTANT-C Work Phone: [phone] [place] [address] 03-15-2025 21:00-0400 Body mass index (BMI) [Ratio] 47.8 kg/m2 Patrick Mcdermott PROMOTIONS ASSISTANT-C Work Phone: [phone] [place] [address] 03-15-2025 21:00-0400 Body weight 146.9 kg Patrick Mcdermott PROMOTIONS ASSISTANT-C Work Phone: [phone] [place] [address] 03-15-2025 20:58-0400 Body height 175.26 cm Patrick Mcdermott PROMOTIONS ASSISTANT-C Work Phone: [facility] 03-14-2025 18:05-0400 Body height 175.26 cm Patrick Mcdermott PROMOTIONS ASSISTANT-C Work Phone: [phone] [place] [address] 03-14-2025 18:05-0400 Body mass index (BMI) [Ratio] 49.5 kg/m2 Patrick Mcdermott PROMOTIONS ASSISTANT-C Work Phone: [phone] [address] [place] [id number] 03-14-2025 18:05-0400 Body temperature 98.6 [degF] Patrick Mcdermott [employer]IST[employer] Work Phone: 4([phone])[phone] [place] [address] 03-14-2025 18:05-0400 Body weight 152.18 kg Patrick Mcdermott [employer] ASSIST[employer]-C Work Phone: 8(681)[phone] [place] [address] 03-14-2025 18:05-0400 Diastolic blood pressure 85 mm[Hg] Patrick Mcdermott [employer] ASSIST[employer]C Work Phone: 6(771)[phone] [place] [address] 03-14-2025 18:05-0400 Heart rate 83 /min Patrick Mcdermott [employer]OTIONS ASSISTANT-C Work Phone: [facility] 03-14-2025 18:05-0400 Respiratory rate 18 /min Patrick Mcdermott [employer]OTIONS ASSISTANT-C Work Phone: [facility] 03-14-2025 18:05-0400 SaO2% (BldA) [Mass fraction] 96 % Patrick Mcdermott [employer] ASSISTANT-C Work Phone: [facility] 03-14-2025 18:05-0400 Systolic blood pressure 177 mm[Hg] Patrick Mcdermott [employer] ASSISTANT-C Work Phone: [facility] 03-07-2025 11:19-0400 Body mass index (BMI) [Ratio] 48.88 kg/m2 Keiko Rios MD Work Phone: [facility] 03-07-2025 11:19-0400 Body weight 150.14 kg Keiko Rios MD Work Phone: [facility] 03-07-2025 11:19-0400 Diastolic blood pressure 84 mm[Hg] Keiko Rios MD Work Phone: [facility] 03-07-2025 11:19-0400 Systolic blood pressure 128 mm[Hg] Keiko Rios MD Work Phone: [facility] 01-24-2025 08:24-0400 Body height 175.3 cm Danny Boyer MD Work Phone: [facility] 01-24-2025 08:24-0400 Body mass index (BMI) [Ratio] 48.44 kg/m2 Danny Boyer MD Work Phone: [facility] 01-24-2025 08:24-0400 Body weight 148.78 kg Danny Boyer MD Work Phone: [facility] 01-24-2025 08:24-0400 Diastolic blood pressure 82 mm[Hg] Danny Boyer MD Work Phone: [facility] 01-24-2025 08:24-0400 Systolic blood pressure 138 mm[Hg] Danny Boyer MD Work Phone: [facility] 01-14-2025 11:36-0400 Diastolic blood pressure 69 mm[Hg] Patrick Mcdermott [employer]OTIONS ASSISTANT-C Work Phone: [facility] 01-14-2025 11:36-0400 Heart rate 65 /min Patrick Mcdermott [employer]OTIONS ASSISTANT-C Work Phone: [facility] 01-14-2025 11:36-0400 Respiratory rate 14 /min Patrick Mcdermott [employer]OMOTIONS ASSISTANT-C Work Phone: [facility] 01-14-2025 11:36-0400 SaO2% (BldA) [Mass fraction] 99 % Patrick Mcdermott [employer]OT[employer] ASSISTANT-C Work Phone: [facility] 01-14-2025 11:36-0400 Systolic blood pressure 168 mm[Hg] Patrick Mcdermott [employer]OTIONS ASSISTANT-C Work Phone: [facility] 01-14-2025 09:49-0400 Body height 175.26 cm Patrick Mcdermott [employer]OMOTIONS ASSISTANT-C Work Phone: [facility] 01-14-2025 09:49-0400 Body mass index (BMI) [Ratio] 49 kg/m2 Patrick Mcdermott [employer]OMOTIONS ASSISTANT-C Work Phone: [facility] 01-14-2025 09:49-0400 Body temperature 97.1 [degF] Patrick Mcdermott [employer]OTIONS ASSISTANT-C Work Phone: [facility] 01-14-2025 09:49-0400 Body weight 150.68 kg Patrick Mcdermott [employer]OTIONS ASSISTANT-C Work Phone: [facility] 09-16-2024 20:00-0500 Body temperature 98.2 [degF] Patrick Mcdermott [employer]OT[employer] ASSISTANT-C Work Phone: [facility] 09-16-2024 20:00-0500 Diastolic blood pressure 67 mm[Hg] Patrick Mcdermott [employer]OTIONS ASSISTANT-C Work Phone: [facility] 09-16-2024 20:00-0500 Heart rate 80 /min Patrick Mcdermott [employer]OTIONS ASSISTANT-C Work Phone: [facility] 09-16-2024 20:00-0500 Respiratory rate 18 /min Patrick Mcdermott [employer]OTIONS ASSISTANT-C Work Phone: [facility] 09-16-2024 20:00-0500 SaO2% (BldA) [Mass fraction] 98 % Patrick Mcdermott [employer]OMOTIONS ASSISTANT-C Work Phone: [facility] 09-16-2024 20:00-0500 Systolic blood pressure 154 mm[Hg] Patrick Mcdermott [employer]OTIONS ASSISTANT-C Work Phone: [facility] 09-16-2024 16:32-0500 Body mass index (BMI) [Ratio] 37.3 kg/m2 Patrick Mcdermott [employer]OMOTIONS ASSISTANT-C Work Phone: [facility] 09-16-2024 16:32-0500 Body weight 114.71 kg Patrick Mcdermott [employer]OTIONS ASSISTANT-C Work Phone: [facility] 11-24-2023 19:20-0400 Diastolic blood pressure 98 mm[Hg] Iram Quiles MD Work Phone: [facility] 11-24-2023 19:20-0400 Heart rate 71 /min Iram Quiles MD Work Phone: [facility] 11-24-2023 19:20-0400 Respiratory rate 18 /min Iram Quiles MD Work Phone: [facility] 11-24-2023 19:20-0400 SaO2% (BldA) [Mass fraction] 97 % Iram Quiles MD Work Phone: [facility] 11-24-2023 19:20-0400 Systolic blood pressure 168 mm[Hg] Iram Quiles MD Work Phone: [facility] 11-24-2023 15:12-0400 Body temperature 98.01 [degF] Iram Quiles MD Work Phone: [facility] 11-22-2023 05:17-0400 Body height 175.3 cm Atif Lindsay MD Work Phone: [facility] 11-22-2023 05:17-0400 Body temperature 98.1 [degF] Atif Lindsay MD Work Phone: [facility] 11-22-2023 05:17-0400 Diastolic blood pressure 93 mm[Hg] Atif Lindsay MD Work Phone: [facility] 11-22-2023 05:17-0400 Heart rate 84 /min Atif Lindsay MD Work Phone: [facility] 11-22-2023 05:17-0400 Respiratory rate 16 /min Atif Lindsay MD Work Phone: [facility] 11-22-2023 05:17-0400 SaO2% (BldA) [Mass fraction] 98 % Atif Lindsay MD Work Phone: [facility] 11-22-2023 05:17-0400 Systolic blood pressure 176 mm[Hg] Atif Lindsay MD Work Phone: [facility] 11-22-2023 04:42-0400 Body height 165.1 cm Atif Lindsay MD Work Phone: [facility] 11-22-2023 04:42-0400 Body mass index (BMI) [Ratio] 56.58 kg/m2 Atif Lindsay MD Work Phone: [facility] 11-22-2023 04:42-0400 Body temperature 98.01 [degF] Atif Lindsay MD Work Phone: [facility] 11-22-2023 04:42-0400 Body weight 154.22 kg Atif Lindsay MD Work Phone: [facility] 11-22-2023 04:42-0400 Diastolic blood pressure 92 mm[Hg] Atif Lindsay MD Work Phone: [facility] 11-22-2023 04:42-0400 Heart rate 86 /min Atif Lindsay MD Work Phone: [facility] 11-22-2023 04:42-0400 Respiratory rate 16 /min Atif Lindsay MD Work Phone: [facility] 11-22-2023 04:42-0400 SaO2% (BldA) [Mass fraction] 96 % Atif Lindsay MD Work Phone: [facility] 11-22-2023 04:42-0400 Systolic blood pressure 173 mm[Hg] Atif Lindsay MD Work Phone: [facility] 09-27-2023 15:31-0500 Body temperature 97.9 [degF] Rosibel Kim MD Work Phone: [facility] 09-27-2023 15:31-0500 Diastolic blood pressure 83 mm[Hg] Rosibel Kim MD Work Phone: [facility] 09-27-2023 15:31-0500 Heart rate 68 /min Rosibel Kim MD Work Phone: [facility] 09-27-2023 15:31-0500 Respiratory rate 20 /min Rosibel Kim MD Work Phone: [facility] 09-27-2023 15:31-0500 SaO2% (BldA) [Mass fraction] 98 % Rosibel Kim MD Work Phone: [facility] 09-27-2023 15:31-0500 Systolic blood pressure 144 mm[Hg] Rosibel Kim MD Work Phone: [facility] 09-26-2023 08:10-0500 Diastolic blood pressure 110 mm[Hg] Mani Alba MD Work Phone: [facility] 09-26-2023 08:10-0500 Systolic blood pressure 178 mm[Hg] Mani Alba MD Work Phone: [facility] 09-26-2023 06:54-0500 Body temperature 97.7 [degF] Mani Alba MD Work Phone: [facility] 09-26-2023 06:54-0500 Heart rate 72 /min Mani Alba MD Work Phone: [facility] 09-26-2023 06:54-0500 Respiratory rate 24 /min Mani Alba MD Work Phone: [facility] 09-26-2023 06:54-0500 SaO2% (BldA) [Mass fraction] 97 % Mani Alba MD Work Phone: [facility] 09-26-2023 06:53-0500 Body height 175.3 cm Mani Alba MD Work Phone: [facility] 09-26-2023 06:53-0500 Body mass index (BMI) [Ratio] 49.32 kg/m2 Mani Alba MD Work Phone: [facility] 09-26-2023 06:53-0500 Body weight 151.5 kg Mani Alba MD Work Phone: [facility] 08-05-2023 00:24-0500 Body temperature 97.5 [degF] Atif Lindsay MD Work Phone: [facility] 08-05-2023 00:24-0500 Diastolic blood pressure 95 mm[Hg] Atif Lindsay MD Work Phone: [facility] 08-05-2023 00:24-0500 Heart rate 98 /min Atif Lindsay MD Work Phone: [facility] 08-05-2023 00:24-0500 Respiratory rate 20 /min Atif Lindsay MD Work Phone: [facility] 08-05-2023 00:24-0500 SaO2% (BldA) [Mass fraction] 97 % Atif Lindsay MD Work Phone: [facility] 08-05-2023 00:24-0500 Systolic blood pressure 147 mm[Hg] Atif Lindsay MD Work Phone: [facility] 08-04-2023 08:08-0500 Heart rate 87 /min Belle Martinez MD Work Phone: [facility] 08-04-2023 08:05-0500 SaO2% (BldA) [Mass fraction] 97 % Belle Martinez MD Work Phone: [facility] 08-04-2023 07:50-0500 Body height 175.3 cm Belle Martinez MD Work Phone: [facility] 08-04-2023 07:50-0500 Body mass index (BMI) [Ratio] 51.67 kg/m2 Belle Martinez MD Work Phone: [facility] 08-04-2023 07:50-0500 Body temperature 98.49 [degF] Belle Martinez MD Work Phone: [facility] 08-04-2023 07:50-0500 Body weight 158.79 kg Belle Martinez MD Work Phone: [facility] 08-04-2023 07:50-0500 Diastolic blood pressure 103 mm[Hg] Belle Martinez MD Work Phone: [facility] 08-04-2023 07:50-0500 Respiratory rate 20 /min Belle Martinez MD Work Phone: [facility] 08-04-2023 07:50-0500 Systolic blood pressure 154 mm[Hg] Belle Martinez MD Work Phone: [facility] 08-03-2023 14:49-0500 Body height 175.3 cm Iram Quiles MD Work Phone: [facility] 08-03-2023 14:49-0500 Body mass index (BMI) [Ratio] 51.69 kg/m2 Iram Quiles MD Work Phone: [facility] 08-03-2023 14:49-0500 Body temperature 98.1 [degF] Iram Quiles MD Work Phone: [facility] 08-03-2023 14:49-0500 Body weight 158.76 kg Iram Quiles MD Work Phone: [facility] 08-03-2023 14:49-0500 Diastolic blood pressure 108 mm[Hg] Iram Quiles MD Work Phone: [facility] 08-03-2023 14:49-0500 Heart rate 67 /min Iram Quiles MD Work Phone: [facility] 08-03-2023 14:49-0500 Respiratory rate 20 /min Iram Quiles MD Work Phone: [facility] 08-03-2023 14:49-0500 SaO2% (BldA) [Mass fraction] 99 % rIam Quiles MD Work Phone: [facility] 08-03-2023 14:49-0500 Systolic blood pressure 174 mm[Hg] Iram Quiles MD Work Phone: [facility] 06-17-2023 13:26-0400 Body height 175.3 cm Jan Bhagat MD Work Phone: 4(796)[phone] [place] [address] 06-17-2023 13:26-0400 Body mass index (BMI) [Ratio] 49.18 kg/m2 Jan Bhagat MD Work Phone: 2(575)[phone] [place] [address] 06-17-2023 13:26-0400 Body weight 151.05 kg Jan Bhagat MD Work Phone: 5(253)[phone] [place] [address] 06-17-2023 13:26-0400 Diastolic blood pressure 70 mm[Hg] Jan Bhagat MD Work Phone: 5(912)[phone] [place] [address] 06-17-2023 13:26-0400 Systolic blood pressure 128 mm[Hg] Jan Bhagat MD Work Phone: 4(682)[phone] [place] [address] 06-10-2023 12:45-0400 Body height 175.[address] [facility] 06-10-2023 12:45-0400 Body mass index (BMI) [Ratio] 50.24 kg/m2 [facility] 06-10-2023 12:45-0400 Body temperature 97.5 [degF] [facility] 06-10-2023 12:45-0400 Body weight 154.[address] [facility] 06-10-2023 12:45-0400 Diastolic blood pressure 92 mm[Hg] [facility] 06-10-2023 12:45-0400 Heart rate 104 /min [facility] 06-10-2023 12:45-0400 Respiratory rate 97 /min [facility] 06-10-2023 12:45-0400 Systolic blood pressure 158 mm[Hg] [facility] 05-31-2023 00:55-0400 Body height 175.3 cm Lalo Reynoso MD Work Phone: [facility] 05-31-2023 00:55-0400 Body mass index (BMI) [Ratio] 50.95 kg/m2 Lalo Reynoso MD Work Phone: [facility] 05-31-2023 00:55-0400 Body temperature 98.2 [degF] Lalo Reynoso MD Work Phone: [facility] 05-31-2023 00:55-0400 Body weight 156.49 kg Lalo Reynoso MD Work Phone: [facility] 05-31-2023 00:55-0400 Diastolic blood pressure 91 mm[Hg] Lalo Reynoso MD Work Phone: [facility] 05-31-2023 00:55-0400 Heart rate 70 /min Lalo Reynoso MD Work Phone: [facility] 05-31-2023 00:55-0400 Respiratory rate 24 /min Lalo Reynoso MD Work Phone: [facility] 05-31-2023 00:55-0400 SaO2% (BldA) [Mass fraction] 100 % Lalo Reynoso MD Work Phone: [facility] 05-31-2023 00:55-0400 Systolic blood pressure 162 mm[Hg] Lalo Reynoso MD Work Phone: [facility] 05-19-2023 20:06-0400 Diastolic blood pressure 110 mm[Hg] Manoj Lopez MD Work Phone: [facility] 05-19-2023 20:06-0400 Heart rate 65 /min Manoj Lopez MD Work Phone: [facility] 05-19-2023 20:06-0400 Respiratory rate 12 /min Manoj Lopez MD Work Phone: [facility] 05-19-2023 20:06-0400 SaO2% (BldA) [Mass fraction] 96 % Manoj Lopez MD Work Phone: [facility] 05-19-2023 20:06-0400 Systolic blood pressure 182 mm[Hg] Manoj Lopez MD Work Phone: [facility] 05-19-2023 18:59-0400 Body temperature 97.81 [degF] Manoj Lopez MD Work Phone: [facility] 05-19-2023 18:57-0400 Body height 175.3 cm Manoj Lopez MD Work Phone: [facility] 05-19-2023 18:57-0400 Body mass index (BMI) [Ratio] 50.63 kg/m2 Manoj Lopez MD Work Phone: [facility] 05-19-2023 18:57-0400 Body weight 155.58 kg Manoj Lopez MD Work Phone: [facility] 05-18-2023 18:42-0400 Diastolic blood pressure 90 mm[Hg] Martín Harclerode DO Work Phone: [facility] 05-18-2023 18:42-0400 Heart rate 74 /min Martín Harclerode DO Work Phone: [facility] 05-18-2023 18:42-0400 Respiratory rate 16 /min Martín Harclerode DO Work Phone: [facility] 05-18-2023 18:42-0400 SaO2% (BldA) [Mass fraction] 98 % Martín Harclerode DO Work Phone: [facility] 05-18-2023 18:42-0400 Systolic blood pressure 166 mm[Hg] Martín Harclerode DO Work Phone: [facility] 05-18-2023 15:31-0400 Body height 175.3 cm Martín Harclerode DO Work Phone: [facility] 05-18-2023 15:31-0400 Body mass index (BMI) [Ratio] 52.28 kg/m2 Martín Harclerode DO Work Phone: [facility] 05-18-2023 15:31-0400 Body temperature 98.29 [degF] Martín Harclerode DO Work Phone: [facility] 05-18-2023 15:31-0400 Body weight 160.57 kg Martín Harclerode DO Work Phone: [facility] 05-17-2023 23:40-0400 SaO2% (BldA) [Mass fraction] 98 % Manoj Lopez MD Work Phone: [facility] 05-17-2023 23:37-0400 Body height 175.3 cm Manoj Lopez MD Work Phone: [facility] 05-17-2023 23:37-0400 Body mass index (BMI) [Ratio] 52.28 kg/m2 Manoj Lopez MD Work Phone: [facility] 05-17-2023 23:37-0400 Body temperature 97.81 [degF] Manoj Lopez MD Work Phone: [facility] 05-17-2023 23:37-0400 Body weight 160.57 kg Manoj Lopez MD Work Phone: [facility] 05-17-2023 23:37-0400 Diastolic blood pressure 104 mm[Hg] Manoj Lopez MD Work Phone: [facility] 05-17-2023 23:37-0400 Heart rate 71 /min Manoj Lopez MD Work Phone: [facility] 05-17-2023 23:37-0400 Respiratory rate 20 /min Manoj Lopez MD Work Phone: [facility] 05-17-2023 23:37-0400 Systolic blood pressure 174 mm[Hg] Manoj Lopez MD Work Phone: [facility] 05-10-2022 05:08-0400 Diastolic blood pressure 70 mm[Hg] James Abdalla DO Work Phone: [facility] 05-10-2022 05:08-0400 Heart rate 76 /min James Abdalla DO Work Phone: [facility] 05-10-2022 05:08-0400 Respiratory rate 16 /min James Abdalla DO Work Phone: [facility] 05-10-2022 05:08-0400 SaO2% (BldA) [Mass fraction] 100 % James Abdalla DO Work Phone: [facility] 05-10-2022 05:08-0400 Systolic blood pressure 132 mm[Hg] James Abdalla DO Work Phone: [facility] 05-10-2022 02:45-0400 Body height 175.3 cm James Abdalla DO Work Phone: [facility] 05-10-2022 02:45-0400 Body mass index (BMI) [Ratio] 52.28 kg/m2 James Abdalla DO Work Phone: [facility] 05-10-2022 02:45-0400 Body temperature 97.2 [degF] James Abdalla DO Work Phone: [facility] 05-10-2022 02:45-0400 Body weight 160.57 kg James Abdalla DO Work Phone: [facility] 04-29-2022 02:40-0400 Body temperature 97.81 [degF] Pete Ruiz DO Work Phone: [facility] 04-29-2022 02:40-0400 Diastolic blood pressure 89 mm[Hg] Pete Ruiz DO Work Phone: [facility] 04-29-2022 02:40-0400 Heart rate 98 /min Pete Ruiz DO Work Phone: [facility] 04-29-2022 02:40-0400 Respiratory rate 21 /min Pete Ruiz DO Work Phone: [facility] 04-29-2022 02:40-0400 SaO2% (BldA) [Mass fraction] 96 % Pete Ruiz DO Work Phone: [facility] 04-29-2022 02:40-0400 Systolic blood pressure 139 mm[Hg] Pete Ruiz DO Work Phone: [facility] 04-23-2022 08:18-0400 Body height 175.3 cm Korina Rios DO Work Phone: [facility] 04-23-2022 08:18-0400 Body mass index (BMI) [Ratio] 50.95 kg/m2 Korina Vince DO Work Phone: [facility] 04-23-2022 08:18-0400 Body weight 156.49 kg Korina Vince DO Work Phone: [facility] 04-23-2022 08:18-0400 Diastolic blood pressure 89 mm[Hg] Korina Rios DO Work Phone: [facility] 04-23-2022 08:18-0400 Heart rate 76 /min Korina Rios DO Work Phone: [facility] 04-23-2022 08:18-0400 Systolic blood pressure 131 mm[Hg] Korina Rios DO Work Phone: [facility] 04-16-2022 21:44-0400 Body height 175.3 cm Phillip Mejia DO Work Phone: [facility] 04-16-2022 21:44-0400 Body mass index (BMI) [Ratio] 52.28 kg/m2 Phillip Mejia DO Work Phone: [facility] 04-16-2022 21:44-0400 Body temperature 98.1 [degF] Phillip Mejia DO Work Phone: [facility] 04-16-2022 21:44-0400 Body weight 160.57 kg Phillip Mejia DO Work Phone: [facility] 04-16-2022 21:44-0400 Diastolic blood pressure 87 mm[Hg] Phillip Mejia DO Work Phone: [facility] 04-16-2022 21:44-0400 Heart rate 92 /min Phillip Mejia DO Work Phone: [facility] 04-16-2022 21:44-0400 Respiratory rate 16 /min Phillip Mejia DO Work Phone: [facility] 04-16-2022 21:44-0400 SaO2% (BldA) [Mass fraction] 98 % Phillip Mejia DO Work Phone: [facility] 04-16-2022 21:44-0400 Systolic blood pressure 147 mm[Hg] Phillip Mejia DO Work Phone: [facility] 02-27-2022 10:46-0400 Body height 175.3 cm Korina Rios DO Work Phone: [facility] 02-27-2022 10:46-0400 Body mass index (BMI) [Ratio] 50.65 kg/m2 Korina Rios DO Work Phone: [facility] 02-27-2022 10:46-0400 Body weight 155.58 kg Korina Rios DO Work Phone: [facility] 02-27-2022 10:46-0400 Diastolic blood pressure 76 mm[Hg] Korina Rios DO Work Phone: [facility] 02-27-2022 10:46-0400 Heart rate 79 /min Korina Rios DO Work Phone: [facility] 02-27-2022 10:46-0400 Systolic blood pressure 105 mm[Hg] Korina Rios DO Work Phone: [facility] 12-05-2021 14:30-0400 Diastolic blood pressure 71 mm[Hg] Iram Quiles MD Work Phone: [facility] 12-05-2021 14:30-0400 Heart rate 88 /min Iram Quiles MD Work Phone: [facility] 12-05-2021 14:30-0400 Respiratory rate 18 /min Iram Quiles MD Work Phone: [facility] 12-05-2021 14:30-0400 SaO2% (BldA) [Mass fraction] 100 % rIam Quiles MD Work Phone: [facility] 12-05-2021 14:30-0400 Systolic blood pressure 145 mm[Hg] Iram Quiles MD Work Phone: [facility] 12-05-2021 14:19-0400 Body height 175.3 cm Iarm Quiles MD Work Phone: [facility] 12-05-2021 14:19-0400 Body mass index (BMI) [Ratio] 50.21 kg/m2 Iram Quiles MD Work Phone: [facility] 12-05-2021 14:19-0400 Body weight 154.22 kg Iram Quiles MD Work Phone: [facility] 12-05-2021 13:58-0400 Body temperature 97.81 [degF] Iram Quiles MD Work Phone: [facility] 09-28-2019 02:08-0500 BP Diastolic 73 mm[Hg] Evan Schulz [facility] 09-28-2019 02:08-0500 BP Systolic 132 mm[Hg] Evan Schulz [facility] 09-28-2019 02:08-0500 Pulse (Heart Rate) 89 /min Evan Schulz [facility] 09-28-2019 02:08-0500 Pulse Oximetry 94 % Evan Schulz [facility] 09-28-2019 01:02-0500 BMI (Body Mass Index) 50.21 kg/m2 Evan Schulz [facility] 09-28-2019 01:02-0500 Body Temperature 98.8 [degF] Evan Schulz [facility] 09-28-2019 01:02-0500 Body weight 154.22 kg Evan Schulz [facility] 09-28-2019 01:02-0500 Height 175.3 cm Evan Schulz [facility] 09-28-2019 01:02-0500 Respiratory Rate 18 /min Evan Schulz [facility] 05-25-2019 02:30-0400 BMI (Body Mass Index) 50.14 kg/m2 Samaria Sharif [facility] 05-25-2019 02:30-0400 Body Temperature 98.1 [degF] Samaria Sharif [facility] 05-25-2019 02:30-0400 Body weight 154 kg Samaria Sharif [facility] 05-25-2019 02:30-0400 BP Diastolic 82 mm[Hg] Samaria Sharif [facility] 05-25-2019 02:30-0400 BP Systolic 128 mm[Hg] Samaria Sharif [facility] 05-25-2019 02:30-0400 Height 175.3 cm Samaria Sharif [facility] 05-25-2019 02:30-0400 Pulse (Heart Rate) 88 /min Samaria Sharif [facility] 05-25-2019 02:30-0400 Pulse Oximetry 96 % Samaria Sharif [facility] 05-25-2019 02:30-0400 Respiratory Rate 17 /min Samaria Sharif [facility] 01-27-2018 19:46-0400 Body Temperature 98.4 [degF] Physician Delgado [facility] 01-27-2018 19:46-0400 BP Diastolic 105 mm[Hg] Physician No [facility] 01-27-2018 19:46-0400 BP Systolic 166 mm[Hg] Physician No [facility] [facility] 01-27-2018 19:46-0400 Height 175.3 cm Physician No [facility] 01-27-2018 19:46-0400 Pulse (Heart Rate) 102 /min Physician No [facility] 01-27-2018 19:46-0400 Pulse Oximetry 96 % Physician No [facility] 01-27-2018 19:46-0400 Respiratory Rate 16 /min Physician No [facility] 01-27-2018 19:33-0400 BMI (Body Mass Index) 45.31 kg/m2 Physician No [facility] 01-27-2018 19:33-0400 Weight 139.16 kg Physician No [facility] Encounters Encounter Date Encounter Type Care Provider Facility Start: 03-26-2025 End: 03-26-2025 ambulatory KEIKO RIOS Facility:[facility] Start: 03-23-2025 End: 03-23-2025 ambulatory Keiko Rios MD Work Phone: OB/Gynecology Comment on above: Dnc Start: 03-22-2025 End: 03-22-2025 ambulatory PATRICK MCDERMOTT Facility:[facility] Start: 03-22-2025 Encounter for other preprocedural examination PATRICK MCDERMOTT [facility] Start: 03-21-2025 End: 03-21-2025 Preprocedural examination done [facility] Start: 03-21-2025 End: 03-21-2025 [facility] Pre Anesthesia Comment on above: BMI 45.0-49.9, adult (HCC) (Primary Dx); PTSD (post-traumatic stress disorder); Urinary incontinence, unspecified type; Pre-op evaluation; Nicotine dependence, cigarettes, uncomplicated; Anxiety and depression; Marijuana use Start: 03-17-2025 End: 03-17-2025 Emergency department patient visit PATRICK MCDERMOTT [facility] Start: 03-16-2025 End: 03-16-2025 Patient encounter procedure Us Tech [facility] OB/Gynecology Start: 03-16-2025 End: 03-16-2025 Emergency department patient visit Patrick Mcdermott PROMOTIONS ASSISTANT-C Work Phone: -Emergency Department Work Phone: Start: 03-16-2025 End: 03-20-2025 ambulatory Yarn Weigher [facility] Work Phone: OB/Gynecology Comment on above: Dnc Start: 03-15-2025 End: 03-16-2025 Emergency department patient visit Patrick Mcdermott PROMOTIONS ASSISTANT-C Work Phone: -Emergency Department Work Phone: Start: 03-14-2025 End: 03-14-2025 Emergency department patient visit Patrick Mcdermott PROMOTIONS ASSISTANT-C Work Phone: -Emergency Department Work Phone: Start: 03-13-2025 End: 03-21-2025 Telephone encounter Keiko Rios MD Work Phone: OB/Gynecology Comment on above: Schedule Surgery Start: 03-07-2025 End: 03-07-2025 Patient encounter procedure Keiko Rios MD Work Phone: OB/Gynecology Comment on above: Dysmenorrhea (Primar y Dx); Abnormal uterine bleeding (AUB); BMI 45.0-49.9, adult (HCC); Intramural uterine fibroid Start: 03-07-2025 End: 03-07-2025 ambulatory KEIKO RIOS Facility:[facility] Start: 01-24-2025 End: 01-24-2025 Patient encounter procedure Danny Boyer MD Work Phone: OB/Gynecology Comment on above: Encounter for screen ing for malignant neoplasm of cervix (Primary Dx); Special screening examination for human papillomavirus (HPV); Pelvic pain in female; Recurrent loss without current ; Mixed stress and urge urinary incontinence Start: 01-24-2025 End: 01-24-2025 ambulatory DANNY BOYER Facility:[facility] Start: 01-14-2025 End: 01-14-2025 Emergency department patient visit Patrick Mcdermott PROMOTIONS ASSISTANT-C Work Phone: -Emergency Department Work Phone: Start: 01-11-2025 ambulatory PATRICK MELISSA [facility] Start: 01-11-2025 End: 01-11-2025 Emergency department patient visit ISABEL BLISS [facility] Start: 09-16-2024 End: 09-16-2024 Emergency department patient visit Dr. Adi Quezada DO -Emergency Department Work Phone: Start: 09-14-2024 End: 09-14-2024 Emergency department patient visit PATRICK SPRING LAYER [facility] Start: 07-18-2024 End: 07-18-2024 Emergency department patient visit PATRICK SPRING LAYER [facility] Start: 07-17-2024 End: 07-17-2024 Emergency department patient visit Ed Physician Provider Facility:[facility] Start: 07-16-2024 End: 07-16-2024 Emergency department patient visit Jai Arizmendi Facility:[facility] Start: 07-15-2024 End: 07-15-2024 Emergency department patient visit Alejandro Rene Facility:[facility] Start: 07-15-2024 End: 07-15-2024 Emergency department patient visit PATRICK MELISSA [facility] Start: 06-30-2024 End: 06-30-2024 ambulatory Patrick Mcdermott PROMOTIONS ASSISTANT Facility:[facility] Start: 05-19-2024 End: 05-20-2024 Emergency department patient visit Patrick Mcdermott NP Facility:[facility] Start: 05-14-2024 End: 05-14-2024 Emergency department patient visit PATRICK TORRES [facility] Start: 05-13-2024 End: 05-14-2024 Emergency department patient visit PATRICK MELISSA [facility] Start: 11-30-2023 End: 11-30-2023 Emergency department patient visit IRAM QUILES [facility] Start: 11-30-2023 Emergency department patient visit PAM GUERRA Facility:[facility] Start: 11-24-2023 End: 11-24-2023 Emergency department patient visit IRAM QUILES [facility] Start: 11-24-2023 End: 11-24-2023 Emergency department patient visit Iram Quiles MD Work Phone: [facility] Emergency Room Comment on above: Nausea and vomiting, unspecified vomiting type (Primary Dx); Hypokalemia; Resistant hypertension Start: 11-24-2023 End: 11-24-2023 Evaluation and management of inpatient Iram Quiles MD Work Phone: [facility] Emergency Room Start: 11-22-2023 End: 11-22-2023 Emergency department patient visit IRAM AVELARNU [facility] Start: 11-22-2023 End: 11-22-2023 Emergency department patient visit Atif Lindsay MD Work Phone: [facility] Emergency Room Comment on above: Cannabis abuse (Prim ramona Dx) Cyclic vomiting synd aydin (Primary Dx); Cannabis abuse; Anxiety Start: 11-22-2023 End: 11-22-2023 Evaluation and management of inpatient Atif Lindsay MD Work Phone: [facility] Emergency Room Start: 09-27-2023 End: 09-27-2023 Emergency department patient visit IRAM AVELARNU [facility] Start: 09-27-2023 End: 09-27-2023 Emergency department patient visit Rosibel Kim MD Work Phone: [facility] Emergency Room Comment on above: Prolonged Q-T interv al on ECG (Primary Dx); Nausea and vomiting, unspecified vomiting type; Lightheadedness Start: 09-27-2023 End: 09-27-2023 Evaluation and management of inpatient Rosibel Kim MD Work Phone: [facility] Start: 09-26-2023 End: 09-26-2023 Emergency department patient visit Mani Alba MD Work Phone: [facility] Emergency Room Comment on above: Nausea and vomiting, unspecified vomiting type (Primary Dx); Prolonged Q-T interval on ECG; Hypomagnesemia Start: 09-26-2023 End: 09-26-2023 Evaluation and management of inpatient Mani Alba MD Work Phone: [facility] Emergency Room Start: 09-25-2023 End: 09-25-2023 [facility] Start: 08-05-2023 Emergency department patient visit IRAM QUILES [facility] Start: 08-05-2023 End: 08-05-2023 Emergency department patient visit IRAM QUILES [facility] Start: 08-05-2023 End: 08-05-2023 Evaluation and management of inpatient [facility] Start: 08-05-2023 End: 08-05-2023 [facility] Comment on above: Arrived Start: 08-05-2023 End: 08-05-2023 Emergency department patient visit Atif Lindsay MD Work Phone: [facility] Emergency Room Comment on above: Strain of right trap ezius muscle, initial encounter (Primary Dx); Rash; Rib pain on right side Start: 08-05-2023 End: 08-05-2023 Evaluation and management of inpatient Atif Lindsay MD Work Phone: [facility] Room Start: 08-04-2023 End: 08-04-2023 Emergency department patient visit IRAM QUILES [facility] Start: 08-04-2023 End: 08-04-2023 Emergency department patient visit Belle Martinez MD Work Phone: [facility] Emergency Room Comment on above: Nausea and vomiting, unspecified vomiting type (Primary Dx); Fall, initial encounter; Acute UTI; Rib pain; Acute back pain, unspecified back location, unspecified back pain laterality Start: 08-04-2023 End: 08-04-2023 Evaluation and management of inpatient Belle Martinez MD Work Phone: [facility] Start: 08-03-2023 End: 08-03-2023 Emergency department patient visit IRAM QUILES [facility] Start: 08-03-2023 End: 08-03-2023 Emergency department patient visit Iram Quiles MD Work Phone: [facility] Start: 08-03-2023 End: 08-03-2023 Evaluation and management of inpatient Iram Quiles MD Work Phone: [facility] Start: 08-03-2023 End: 08-03-2023 Emergency department patient visit PROVIDER NOT IN SYSTEM [facility] Start: 07-13-2023 ambulatory SELF SELF Facility:[facility] Start: 06-30-2023 Telephone encounter Korina fox DO Work Phone: [facility] Start: 06-17-2023 ambulatory [facility] Facility:[facility] Start: 06-17-2023 End: 06-17-2023 Office outpatient new 45 minutes Jan Bhagta MD Work Phone: [facility] [place] Comment on above: Oligomenorrhea, unsp ecified type (Primary Dx); Screen for STD (sexually transmitted disease); Endometriosis; Chronic pelvic pain in female Start: 06-10-2023 ambulatory [facility] Facility:[facility] Start: 06-10-2023 End: 06-10-2023 Office outpatient new 45 minutes Obinna Bryant MD, MPH Work Phone: [employer] Comment on above: Epigastric pain (Lily jose francisco Dx); Endometriosis; Gastroesophageal reflux disease, unspecified whether esophagitis present; Tobacco use; History of seizure Start: 06-01-2023 ambulatory PAM Vallecillo ty:[facility] Start: 05-31-2023 End: 05-31-2023 Emergency department patient visit LALO REYNOSO [facility] Start: 05-31-2023 End: 05-31-2023 Emergency department patient visit Lalo Reynoso MD Work Phone: [facility] Emergency Room Comment on above: Cannabis hyperemesis syndrome concurrent with and due to cannabis abuse (CMS/HCC) (Primary Dx) Start: 05-31-2023 End: 05-31-2023 Evaluation and management of inpatient Lalo Reynoso MD Work Phone: [facility] Start: 05-30-2023 End: 05-30-2023 Emergency department patient visit PROVIDER NOT IN SYSTEM [facility] Start: 05-20-2023 End: 05-20-2023 Emergency department patient visit PROVIDER NOT IN SYSTEM [facility] Start: 05-19-2023 End: 05-20-2023 Emergency department patient visit MANOJ LOPEZ [facility] Start: 05-19-2023 End: 05-19-2023 Emergency department patient visit Manoj Lopez MD Work Phone: [facility] Comment on above: Seizure (CMS/HCC) (P rimary Dx) Start: 05-19-2023 End: 05-19-2023 Evaluation and management of inpatient Manoj Lopez MD Work Phone: [facility] Start: 05-18-2023 End: 05-19-2023 Evaluation and management of inpatient [id number] CHARLIE MANUEL [facility] Start: 05-18-2023 End: 05-18-2023 Emergency department patient visit IRAM QUILES [facility] Start: 05-18-2023 End: 05-18-2023 Emergency department patient visit Martín Noemí DO Work Phone: [facility] Comment on above: Acute pancreatitis, unspecified complication status, unspecified pancreatitis type (Primary Dx); Intractable nausea and vomiting Start: 05-18-2023 End: 05-18-2023 Evaluation and management of inpatient Martín Dowd DO Work Phone: [facility] Start: 05-18-2023 End: 05-18-2023 Emergency department patient visit IRAM QUILES [facility] Start: 05-17-2023 End: 05-18-2023 Evaluation and management of inpatient Manoj Lopez MD Work Phone: [facility] Start: 05-17-2023 End: 05-18-2023 Emergency department patient visit Manoj Lopez MD Work Phone: [facility] Comment on above: Nausea and vomiting, unspecified vomiting type (Primary Dx) Start: 05-16-2023 End: 05-17-2023 ambulatory VANCE ARCEO [facility] Start: 04-23-2023 End: 04-24-2023 Emergency department patient visit PHYSICIAN SANDY [facility] Start: 01-02-2023 ambulatory Jenny Pickard PROMOTIONS ASSISTANT [place] Start: 05-10-2022 End: 05-10-2022 Subsequent hospital visit by physician [facility] Comment on above: Arrived Start: 05-10-2022 End: 05-10-2022 Emergency department patient visit James Abdalla DO Work Phone: [facility] Comment on above: Sprain of right knee , unspecified ligament, initial encounter (Primary Dx) Start: 05-10-2022 End: 05-10-2022 Evaluation and management of inpatient James Abdalla DO Work Phone: [facility] Start: 04-29-2022 End: 04-29-2022 Subsequent hospital visit by physician [facility] Comment on above: Arrived Start: 04-29-2022 End: 04-29-2022 Emergency department patient visit Peet Ruiz DO Work Phone: [facility] Comment on above: Sprain of anterior t alofibular ligament of left ankle, initial encounter (Primary Dx) Start: 04-29-2022 End: 04-29-2022 Evaluation and management of inpatient Pete Ruiz DO Work Phone: [facility] Start: 04-23-2022 End: 04-23-2022 Office outpatient visit 15 minutes Korina Rios DO Work Phone: [facility] Comment on above: Excessive bleeding i n premenopausal period (Primary Dx); Anemia, unspecified type Start: 04-23-2022 End: 04-23-2022 Patient encounter procedure Korina Rios DO Work Phone: [facility] Start: 04-16-2022 End: 04-17-2022 Emergency department patient visit Phillip Mejia DO Work Phone: [facility] Comment on above: Vaginal bleeding (Pr imary Dx) Start: 04-16-2022 End: 04-17-2022 Evaluation and management of inpatient Phillip Mejia DO Work Phone: [facility] Start: 02-27-2022 End: 02-27-2022 Office outpatient new 45 minutes Korina Rios DO Work Phone: [facility] Comment on above: Irregular menstrual cycle (Primary Dx); Excessive bleeding in premenopausal period; Obesity, morbid ([facility]/HCC) Start: 02-27-2022 End: 02-27-2022 Patient encounter procedure Korina Rios DO Work Phone: [facility] Start: 01-16-2022 End: 01-16-2022 Evaluation and management of inpatient [facility] Xr [facility] Start: 01-16-2022 End: 01-16-2022 Subsequent hospital visit by physician [facility] Comment on above: Arrived Start: 12-05-2021 End: 12-05-2021 Emergency department patient visit Iram Quiles MD Work Phone: [facility] Comment on above: Preauricular lymphad enitis (Primary Dx) Start: 12-05-2021 End: 12-05-2021 Evaluation and management of inpatient Iram Quiles MD Work Phone: [facility] Start: 05-17-2020 Office outpatient vi sit 5 minutes Jenny Pickard NP [place] Start: 09-28-2019 End: 09-28-2019 Emergency department patient visit Evan Schulz Work Phone: [facility] Emergency Department Comment on above: Nonintractable heada lucretia, unspecified chronicity pattern, unspecified headache type (Primary Dx) Start: 05-25-2019 End: 05-25-2019 Emergency department patient visit SAMARIA SHARIF [facility] Start: 05-25-2019 End: 05-25-2019 Emergency department patient visit Samaria Sharif Work Phone: [facility] Emergency Department Comment on above: Foot swelling (Prima ry Dx) Start: 07-25-2018 End: 07-25-2018 Patient encounter procedure Aleah Gabriella [facility] Comment on above: Abnormal uterine ble eding (AUB) (Primary Dx) Start: 01-27-2018 End: 01-27-2018 Emergency department patient visit PHYSICIAN NO [facility] Start: 01-27-2018 End: 01-27-2018 Emergency department patient visit Physician No [facility] Emergency Department Start: 04-11-2017 End: 04-11-2017 Ambulatory NONE PHYSICAN Facility:01 Procedures Date Procedure Procedure Detail Performing Clinician Start: 03-16-2025 Us pelvic nonobstetr ic real-time image complete Keiko Rios MD Work Phone: Start: 03-15-2025 Computed tomography of abdomen and pelvis with intravenous contrast Patrick Mcdermott PROMOTIONS ASSISTANT-C Work Phone: Start: 03-15-2025 Estimated creatinine clearance Patrick Mcdermott PROMOTIONS ASSISTANT-C Work Phone: Start: 01-24-2025 Cytp c/v auto thin l yr prepj scr mnl rescr phys Danny Boyer MD Work Phone: Start: 01-24-2025 HIGH RISK HUMAN HAYES LLOMA VIRUS (HPV), PCR FOR DETECTION AND GENOTYPING Danny Boyer MD Work Phone: Start: 01-14-2025 Computed tomography of abdomen and pelvis with intravenous contrast Patrick Mcdermott PROMOTIONS ASSISTANT-C Work Phone: Start: 01-14-2025 Urnls dip stick/tabl et reagent auto microscopy Patrick Mcdermott PROMOTIONS ASSISTANT-C Work Phone: Start: 01-14-2025 Estimated creatinine clearance Patrick Mcdermott PROMOTIONS ASSISTANT-C Work Phone: Start: 09-16-2024 Urnls dip stick/tabl et reagent auto microscopy Patrick Mcdermott PROMOTIONS ASSISTANT-C Work Phone: Start: 09-16-2024 Estimated creatinine clearance Patrick Daniela PROMOTIONS ASSISTANT-C Work Phone: Start: 09-16-2024 Measurement of renal function Patrick Daniela PROMOTIONS ASSISTANT-C Work Phone: Comment on above: GFR Calc Start: 07-18-2024 Urinalysis [facility] Comment on above: Result Comment: URIN ALYSIS Performed By: [id number] #### [facility],[address] [place], [place] [id number] Start: 05-13-2024 Urinalysis [facility] Comment on above: Result Comment: URIN ALYSIS Performed By: #### [id number] #### [facility],[address] [place] [id number] Start: 11-24-2023 Basic metabolic pane l calcium total Pam K Lina PACHECO Work Phone: Start: 11-24-2023 CBC W Auto Different ial panel - Blood Pam K Lina PACHECO Work Phone: Start: 11-22-2023 End: 11-22-2023 Urine test visual color cmprsn meths Atif Lindsay MD Work Phone: Start: 11-22-2023 End: 11-22-2023 Basic metabolic panel calcium total Atif Lindsay MD Work Phone: Start: 09-27-2023 End: 09-27-2023 Basic metabolic panel calcium total Rosibel Kim MD Work Phone: Start: 09-27-2023 Infectious agent dna /rna influenza 1st 2 types Rosibel Kim MD Work Phone: Start: 09-27-2023 Sars-cov-2 detection by dna/rna Rosibel Kim MD Work Phone: Start: 09-26-2023 Basic metabolic pane l calcium total Mani Alba MD Work Phone: Start: 09-26-2023 CBC W Auto Different ial panel - Blood Mani Alba MD Work Phone: Start: 08-05-2023 Radex shoulder compl ete minimum 2 views Atif Lindsay MD Work Phone: Start: 08-05-2023 Ct cervical spine w/ o contrast material Atif Lindsay MD Work Phone: Start: 08-05-2023 Ct thorax w/o contra st material Atif Lindsay MD Work Phone: Start: 08-04-2023 End: 08-04-2023 Urine test visual color cmprsn meths Belle Martinez MD Work Phone: Start: 08-04-2023 End: 08-04-2023 Albumin serum plasma/whole blood Belle Martinez MD Work Phone: Start: 06-10-2023 End: 06-10-2023 Assay of thyroid stimulating hormone tsh Joanne Oliva MD Work Phone: Start: 05-31-2023 RAINBOW DRAW G1 Gosia Reynoso MD Work Phone: Start: 05-31-2023 RED - LESIA wu MD Work Phone: Start: 05-31-2023 SST - GOLD Lalo wu MD Work Phone: Start: 05-31-2023 Assay of lactate Shala Reynoso MD Work Phone: Start: 05-31-2023 CBC W Auto Different ial panel - Blood Lalo Reynoso MD Work Phone: Start: 05-19-2023 Ct head/brain w/o co ntrast material Manoj Lopez MD Work Phone: Start: 05-19-2023 RED - PLAIN Manoj pacheco MD Work Phone: Start: 05-19-2023 CBC W Auto Different ial panel - Blood Manoj Lopez MD Work Phone: Start: 05-19-2023 LAVENDER - EDTA Bonnie Lopez MD Work Phone: Start: 05-19-2023 RAINBOW DRAW G1 Bonnie Lopez MD Work Phone: Start: 05-19-2023 End: 05-19-2023 Basic metabolic panel calcium total Manoj Lopez MD Work Phone: Start: 05-19-2023 EXTRA TUBES Manoj pacheco MD Work Phone: Start: 05-19-2023 GREEN YELLOW PST Rocaelo lupe Lopez MD Work Phone: Start: 05-18-2023 Ct abdomen & pelvis w/contrast material Martín Dowd DO Work Phone: Start: 05-18-2023 End: 05-18-2023 Albumin serum plasma/whole blood Martín Noemí DO Work Phone: Start: 05-18-2023 CBC W Auto Different ial panel - Blood Manoj Lopez MD Work Phone: Start: 05-18-2023 Comprehensive metabo lic panel Manoj Lopez MD Work Phone: Start: 05-10-2022 Radiologic exam knee complete 4/more views James Rm DO Work Phone: Start: 04-29-2022 Radex ankle complete minimum 3 views Pete Ruiz DO Work Phone: Start: 04-16-2022 URINALYSIS MICROSCOPIC ONLY Phillip Mejia DO Work Phone: Start: 04-16-2022 Urine test visual color cmprsn meths Phillip Mejia DO Work Phone: Start: 04-16-2022 Urnls dip stick/tabl et reagent auto microscopy Phillip Mejia DO Work Phone: Start: 04-16-2022 Basic metabolic pane l calcium total Phillip Mejia DO Work Phone: Start: 04-16-2022 CBC W Auto Different ial panel - Blood Phillip Mejia DO Work Phone: Start: 01-16-2022 Radiologic exam ches t 2 views Raúl Kemp DO Work Phone: Start: 05-17-2020 Brief check in by /qjaden Pickard NP Start: 09-28-2019 Choriogonadotropin.b eta subunit ( test) [Presence] in Serum or Plasma Cali Jose Angel Emerson Work Phone: Start: 05-25-2019 12 lead ECG Ben Leyva paulavale iBllmoe Work Phone: Start: 05-25-2019 Basic metabolic 1998 panel - Serum or Plasma Ben Leyvaadrian Faria Work Phone: Start: 05-25-2019 Choriogonadotropin.b eta subunit ( test) [Presence] in Serum or Plasma Ben Leyvaadrian Faria Work Phone: Start: 05-25-2019 Complete blood count with white cell differential, automated Ben Gordonadrian Landymoe Work Phone: Start: 05-25-2019 Complete blood count with white cell differential, manual Ben Gordonadrian Faria Work Phone: Start: 05-25-2019 HUMPHREY TOP Samaria Black Boseson Work Phone: Start: 05-25-2019 Hepatic function 200 0 panel - Serum or Plasma Ben Leyvaadrian Landymoe Work Phone: Start: 05-25-2019 LIGHT BLUE TOP Samaria Mary Shairf Work Phone: Start: 05-25-2019 LIGHT GREEN TOP Samaria Hale Sharif Work Phone: Start: 05-25-2019 Natriuretic peptide. B prohormone N-Terminal [Mass/volume] in Serum or Plasma Ben Amsadrian Faria Work Phone: Start: 05-25-2019 PINK TOP Samaria Gutierrez Work Phone: Start: 05-25-2019 RAINBOW DRAW Samaria Gutierrez Work Phone: Start: 05-25-2019 Troponin measurement Black Faria Work Phone: Start: 05-25-2019 Standard chest X-ray Black Faria Work Phone: Start: 12-06-2017 Microscopic observat ion [Identifier] in Cervix by Cyto stain [facility] Mobile [facility] Ancillary Plan of Treatment Date Care Activity Detail Author Start: 01-24-2030 Screening for malignant neoplasm of cervix Cervical Cancer Screening [facility] Start: 05-16-2028 Lipid panel Cholesterol Screening (Lipid Panel) [facility] Start: 06-09-2026 DTaP,Tdap,and Td Vaccines (2 - Td or Tdap) DTaP,Tdap,and Td Vaccines (2 - Td or Tdap) [facility] Start: 06-09-2026 Tetanus vaccination [facility] Start: 06-09-2026 Urine microalbumin profile DTaP,Tdap,Td Vaccine (2 - Td or Tdap) [facility] Start: 04-24-2025 End: 04-24-2025 Patient encounter procedure 04/24/2025 3:20 PM EDT Office Visit OB/Gynecology [address], [place] [id number] Keiko Rios MD [address] [place] [address] follow up OB/Gynecology Comment on above: follow up Start: 04-23-2025 Influenza vaccination [facility] Start: 03-26-2025 End: 03-26-2025 Admission to same day surgery center 03/26/2025 7:30 AM EDT - 03/26/2025 8:45 AM EDT [address] [address] Keiko Rios MD [address] [place] [address] HYSTEROSCOPY, D & C [facility] Comment on above: HYSTEROSCOPY, D & C Start: 03-26-2025 End: 03-26-2025 Anesthesia consultation 03/26/2025 7:30 AM EDT Anesthesia Event [facility] Surgery [address] [place] [address] Heather Arnold MD [address] [place] [address] [facility] Start: 03-26-2025 End: 03-26-2025 Hysteroscopy bx endometrium&/polypc w/wo d&c ME OR Start: 03-26-2025 End: 03-26-2025 Insertion intrauterine device iud INSERTION DEVICE INTRAUTERINE Abnormal uterine bleeding Dysmenorrhea 03/26/2025 7:30 AM EDT ME OR Start: 03-26-2025 Subsequent hospital visit by physician 03/26/2025 7:30 AM EDT Hospital Encounter [facility] [address] [place] [address] Keiko Rios MD [address] [place] [address] Abnormal uterine bleeding [N93.9], Dysmenorrhea [N94.6] [facility] Comment on above: Abnormal uterine bleeding [N93.9], Dysme norrhea [N94.6] Start: 03-21-2025 End: 06-20-2025 Basic metabolic 2000 panel - Serum or Plasma BASIC METABOLIC PANEL Lab Routine Pre-op evaluation Expected: 03/21/2025, Expires: 06/20/2025 [facility] Comment on above: Expected: 03/21/2025, Expires: Start: 03-21-2025 End: 06-20-2025 CBC W Auto Differential panel - Blood COMPLETE BLOOD COUNT AND DIFFERENTIAL Lab Routine Pre-op evaluation Expected: 03/21/2025, Expires: 06/20/2025 [facility] Work Phone: Comment on above: Expected: 03/21/2025, Expires: Start: 03-21-2025 End: 03-21-2025 Anesthesia consultation 03/21/2025 10:20 AM EDT PAT Pre Anesthesia [address] [place] [address] DOS 03/26 Pre Anesthesia Comment on above: DOS 03/26 Start: 03-16-2025 End: 03-16-2025 ambulatory 03/16/2025 1:30 PM EDT Procedure OB/Gynecology [address] [place] [address] Remote, [employer] [address] [place] [address] [facility] ([facility]) OB/Gynecology Comment on above: [facility]BGYWM ([facility]ar Riley) Start: 03-16-2025 [facility] Start: 03-07-2025 End: 03-07-2026 US Pelvis PELVIC US WHI Anc Imaging Routine Dysmenorrhea Abnormal uterine bleeding (AUB) Intramural uterine fibroid Expected: 03/07/2025, Expires: 03/07/2026 [facility] Work Phone: Comment on above: Expected: 03/07/2025, Expires: Start: 03-07-2025 End: 03-07-2025 Patient encounter procedure 03/07/2025 11:10 AM EDT Office Visit OB/Gynecology [address] [place] [address] Keiko Rios MD [address] [place] [address] consult for hysterectomy OB/Gynecology Comment on above: consult for hysterectomy Start: 01-14-2025 Computed tomography of abdomen and pelvis with intravenous contrast Abdomen/Pelvis W IV Cont ONLY [facility] Start: 01-14-2025 CT Abdomen and Pelvis W contrast IV [facility] Start: 11-23-2024 Hypertension/CHF/CAD Annual BMP Blood Test Hypertension/CHF/CAD Annual BMP Blood Test [facility] Start: 11-21-2024 Hypertension/CHF/CAD Annual BMP Blood Test Hypertension/CHF/CAD Annual BMP Blood Test [facility] Start: 09-27-2024 Hypertension/CHF/CAD Annual BMP Blood Test Hypertension/CHF/CAD Annual BMP Blood Test [facility] Start: 09-26-2024 Hypertension/CHF/CAD Annual BMP Blood Test Hypertension/CHF/CAD Annual BMP Blood Test [facility] Start: 09-16-2024 End: 09-16-2024 [facility] Start: 08-04-2024 Hypertension/CHF/CAD Annual BMP Blood Test Hypertension/CHF/CAD Annual BMP Blood Test [facility] Start: 05-19-2024 Hypertension/CHF/CAD Annual BMP Blood Test Hypertension/CHF/CAD Annual BMP Blood Test [facility] Start: 04-23-2024 Covid-19 Vaccine ( season) Covid-19 Vaccine ( season) [facility] Start: 04-23-2024 Influenza vaccination Influenza Vaccine (Season Ended) [facility] Start: 11-05-2023 End: 11-05-2023 Patient encounter procedure 11/05/2023 1:00 PM EDT Office Visit Gastroenterology and Hepatology [facility] [address] [address] Judy Weaver, PROCESS SUPERVISOR-SPRING LAYER [address] [place] [address] Gastroenterology [facility] Start: 09-21-2023 End: 09-21-2023 Patient encounter procedure 09/21/2023 1:15 PM EST Office Visit [facility]s [facility] [place] [address] [address] Jan Bhagat MD [address] [address] [facility] [place] Start: 07-30-2023 End: 07-30-2023 Patient encounter procedure 07/30/2023 9:00 AM EST Office Visit [facility] [address] 12th [place] [address] Annette Hughes MD [address] [place] [address] [facility] Start: 07-22-2023 End: 07-22-2023 Patient encounter procedure 07/22/2023 1:00 PM EST Office Visit [facility] [address] [place] [address] [facility] [employer] [facility] Start: 07-06-2023 End: 07-06-2023 Patient encounter procedure 07/06/2023 1:00 PM EST Office Visit [facility] [address] [facility] [place] [address] Korina Rios DO [address] [facility] [address] [place] [address] [facility] Start: 06-24-2023 End: 06-24-2023 Patient encounter procedure 06/24/2023 2:30 PM EDT Office Visit [facility] [address] [id number] Jan Bhagat MD [address] [place] [address] [facility] [place] Start: 06-17-2023 End: 06-17-2024 TESTOSTERONE TOTAL AND FREE, INCLUDES SHBG U [facility] Comment on above: Expected: 06/17/2023, Expires: Start: 04-23-2023 Influenza vaccination Influenza Vaccine (#1) [facility] Start: 04-16-2023 Social [employer] [facility] [employer] Screening [facility] Screening [facility] Start: 05-04-2022 End: 05-04-2022 Patient encounter procedure 05/04/2022 Appointment Radiology [place] [address] Start: 04-23-2022 Influenza vaccination [facility] Start: 04-23-2022 End: 04-23-2022 Patient encounter procedure 04/23/2022 Office Visit Obstetrics and Gynecology Korina Rios DO [address] [place] [id number] [facility] Start: 03-26-2022 End: 03-26-2022 Patient encounter procedure 03/26/2022 Office Visit Obstetrics and Gynecology Korina Rios DO [address] [place] [address] [facility] Start: 03-16-2022 End: 03-16-2022 Professional / ancillary services management 03/16/2022 Ancillary Procedure Obstetrics and Gynecology [facility] Start: 02-27-2022 End: 05-30-2022 US Pelvis Transvaginal Non OB US Pelvis Transvaginal Non OB Imaging Routine Irregular menstrual cycle Excessive bleeding in premenopausal period Expected: 02/27/2022, Expires: 05/30/2022 [facility] Work Phone: Comment on above: Expected: 02/27/2022, Expires: Start: 12-06-2020 [facility] Start: 09-07-2019 Adolescent depression screening assessment Depression Screening [facility] Start: 09-07-2019 Hepatitis C screening Hepatitis C Screening [facility] Start: 09-07-2019 HIV screening HIV Screening [facility] Start: 09-07-2019 Lipid panel Cholesterol Screening (Lipid Panel) [facility] Start: 09-07-2019 Social [employer] Screening Social [facility] Screening [facility] Start: 04-23-2019 Influenza vaccination given SEQUENTIAL INFLUENZA VACCINE (#1) [facility] Start: 12-06-2018 Screening for malignant neoplasm of cervix PAP SMEAR DISCUSSION [facility] Work Phone: Start: 09-08-2018 End: 09-08-2018 Ambulatory 09/08/2018 Office Visit General Medicine Lucia Horan MD [address] [place] [phone] [facility] General Internal Medicine at [facility] Start: 07-25-2018 End: 07-25-2019 Transvaginal ultrasonography of pelvis US PELVIC W TRANSVAGINAL Routine Abnormal uterine bleeding (AUB) Expected: 07/25/2018, Expires: 07/25/2019 [facility] Work Phone: Comment on above: Expected: 07/25/2018, Expires: 9 Start: 04-23-2018 Influenza vaccination [facility] Start: 06-25-2017 Pneumococcal vaccination Pneumococcal Vaccine (2 of 2 - PCV) [facility] Start: 06-25-2017 PNEUMOCOCCAL VACCINE SERIES (2 - PCV) PNEUMOCOCCAL VACCINE SERIES (2 - PCV) [facility] Start: 06-25-2017 Pneumococcal Vaccine: Pediatrics (0 to 5 Years) and At-Risk Patients (6 to 64 Years) (2 - PCV) Pneumococcal Vaccine: Pediatrics (0 to 5 Years) and At-Risk Patients (6 to 64 Years) (2 - PCV) [facility] Start: 06-25-2017 Pneumococcal Vaccine: Pediatrics (0 to 5 Years) and At-Risk Patients (6 to 64 Years) (2 of 2 - PCV) Pneumococcal Vaccine: Pediatrics (0 to 5 Years) and At-Risk Patients (6 to 64 Years) (2 of 2 - PCV) [facility] Start: 2009 Screening for malignant neoplasm of cervix Cervical Cancer Screening: Pap Smear [facility] Start: 2007 Hepatitis A Vaccines (1 of 2 - Risk 2-dose series) Hepatitis A Vaccines (1 of 2 - Risk 2-dose series) [facility] Start: 2006 Anxiety Screening Anxiety Screening [facility] Start: 2006 Depression Screening Depression Screening [facility] Start: 2006 Tetanus vaccination TETANUS [facility] Work Phone: Start: 01-05-2002 Hepatitis B Vaccine (2 of 3 - 3-dose series) Hepatitis B Vaccine (2 of 3 - 3-dose series) [facility] Start: 01-05-2002 Hepatitis B Vaccines (2 of 3 - 3-dose primary series) Hepatitis B Vaccines (2 of 3 - 3-dose primary series) [facility] Start: 01-05-2002 Hepatitis B Vaccines (2 of 3 - 3-dose series) Hepatitis B Vaccines (2 of 3 - 3-dose series) [facility] Start: 1993 COVID-19 Vaccine (1) COVID-19 Vaccine (1) [facility] Start: 1991 History and physical examination, annual for health maintenance Wellness Visit [facility] Start: 1988 COVID-19 Vaccine (#1) COVID-19 Vaccine (#1) [facility] Start: 1988 Hepatitis C screening HEPATITIS C VIRUS SCREENING [facility] Start: 1988 Screening for malignant neoplasm of cervix PAP SMEAR [facility] Start: 1988 Tetanus vaccination TETANUS EVERY 10 YR [facility] End: 03-03-2023 Dehydroepiandrosterone sulfate (DHEA-S) [Mass/volume] in Serum or Plasma Dehydroepiandrosterone Sulfate Lab Routine Irregular menstrual cycle 1 Occurrences starting 03/03/2022 until 03/03/2023 [facility] Comment on above: 1 Occurrences starting 03/03/2022 until 03/03/2023 End: 03-03-2023 Estradiol (E2) [Mass/volume] in Serum or Plasma Estradiol Lab Routine Irregular menstrual cycle 1 Occurrences starting 03/03/2022 until 03/03/2023 [facility] Comment on above: 1 Occurrences starting 03/03/2022 until 03/03/2023 End: 03-03-2023 Follitropin [Units/volume] in Serum or Plasma Follicle stimulating hormone Lab Routine Irregular menstrual cycle 1 Occurrences starting 03/03/2022 until 03/03/2023 [facility] Comment on above: 1 Occurrences starting 03/03/2022 until 03/03/2023 End: 03-03-2023 Hemoglobin A1c/Hemoglobin.total in Blood Hemoglobin A1c Lab Routine Irregular menstrual cycle 1 Occurrences starting 03/03/2022 until 03/03/2023 [facility] Comment on above: 1 Occurrences starting 03/03/2022 until 03/03/2023 End: 03-03-2023 Hemogram and platelets WO differential panel - Blood CBC and differential Lab Routine Excessive bleeding in premenopausal period 1 Occurrences starting 03/03/2022 until 03/03/2023 [facility] Comment on above: 1 Occurrences starting 03/03/2022 until 03/03/2023 Patient Education [facility] Work Phone: [facility] Work [facility]: End: 03-03-2023 Prolactin [Mass/volume] in Serum or Plasma Prolactin Lab Routine Irregular menstrual cycle 1 Occurrences starting 03/03/2022 until 03/03/2023 [facility] Comment on above: 1 Occurrences starting 03/03/2022 until 03/03/2023 End: 03-03-2023 Testosterone free, female or pediatric Testosterone free, female or pediatric Lab Routine Irregular menstrual cycle 1 Occurrences starting 03/03/2022 until 03/03/2023 [facility] Comment on above: 1 Occurrences starting 03/03/2022 until 03/03/2023 End: 03-03-2023 Thyrotropin [Units/volume] in Serum or Plasma Thyroid stimulating hormone with reflex to free T4 with reflex to total T3 Lab Routine Irregular menstrual cycle 1 Occurrences starting 03/03/2022 until 03/03/2023 [facility] Comment on above: 1 Occurrences starting 03/03/2022 until 03/03/2023 Immunizations Immunization Date Immunization Notes Care Provider Fa [facility] 06-10-2023 Influenza quad vacci ne 0.5 ML Suspension Prefilled Syringe [facility] 05-06-2020 influenza virus vacc ine, whole virus [facility] 05-06-2020 influenza virus vacc ine, unspecified formulation Iram Quiles MD Work Phone: [facility] 06-25-2016 pneumococcal polysaccharide vaccine, 23 valent [facility] 06-09-2016 influenza, injectabl e, quadrivalent, contains preservative [facility] 06-09-2016 tetanus toxoid, redu brad diphtheria toxoid, and acellular pertussis vaccine, adsorbed [facility] 06-09-2016 influenza virus vacc ine, unspecified formulation Aleah Quiroz [facility] Work Phone: 12-08-2001 hepatitis B vaccine, pediatric or pediatric/adolescent dosage [facility] Ancillary [facility] Payers Date Payer Category Payer Self-pay 2021 Medicaid [employer] [place] [id number] 2021-Present [address] [address] [place] [address] [id number] 2021 Medicaid [id number] 2014 Medicaid [facility] MANAGED MEDI CAID UHC MEDICAID COMMUNITY PLAN xxxxxxxxx 2014-Present xxxxxxxxx [id number] 2014 Medicaid [id number] 1988 Unknown [id number] 2.16.840.1.486602.3.579.2. 900 1988 Unknown [id number] 2.16.840.1.362934.3.579.2. 902 1988 Unknown [id number] 2.16.840.1.577724.3.579.2. 902 1988 Unknown [id number] 2.16.840.1.651113.3.579.2. 902 1988 Unknown [id number] 2.16.840.1.323404.3.579.2. 902 1988 Unknown [id number] 2.16.840.1.109959.3.579.2. 902 1988 Unknown [id number] 2.16.840.1.274100.3.579.2. 902 1988 Unknown [id number] 2.16.840.1.258374.3.579.2. 902 1988 Unknown [id number] 2.16.840.1.103593.3.579.2. 1143 1988 Unknown [id number] 2.16.840.1.347190.3.579.2. 1143 1988 Unknown [id number] 2.16.840.1.119601.3.579.2. 1143 1988 Unknown [id number] 2.16.840.1.948882.3.579.2. 114 1988 Unknown [id number] 2.16.840.1.092604.3.579.2. 114 1988 Unknown [id number] 2.16.840.1.859822.3.579.2. 114 1988 Unknown [id number] 2.16.840.1.630087.3.579.2. 114 1988 Unknown [id number] 2.16.840.1.221487.3.579.2. 594 1988 Unknown [id number] 2.16.840.1.072178.3.579.2. 594 1988 Unknown [id number] 2.16.840.1.981823.3.579.2. 594 1988 Unknown [id number] 2.16.840.1.684914.3.579.2. 594 1988 Unknown [id number] 2.16.840.1.729809.3.579.2. 594 1988 Unknown [id number] 2.16.840.1.835505.3.579.2. 594 1988 Unknown [id number] 2.16.840.1.992828.3.579.2. 114 1988 Unknown [id number] 2.16.840.1.052464.3.579.2. 114 1988 Unknown [id number] 2.16.840.1.451412.3.579.2. 114 1988 Unknown [id number] 2.16.840.1.692430.3.579.2. 1143 1988 Unknown [id number] 2.16.840.1.721987.3.579.2. 1143 1988 Unknown [id number] 2.16.840.1.996000.3.579.2. 1143 1988 Unknown [id number] 2.16.840.1.621208.3.579.2. 114 1988 Unknown [id number] 2.16.840.1.779924.3.579.2. 1143 1988 Unknown [id number] 2.16.840.1.508344.3.579.2. 65 1988 Unknown [id number] 2.16.840.1.359546.3.579.2. 651 1988 Unknown [id number] 2.16.840.1.683416.3.579.2. 65 1988 Unknown [id number] 2.16.840.1.478658.3.579.2. 651 1988 Unknown [id number] 2.16.840.1.253382.3.579.2. 1988 Unknown [id number] 2.16.840.1.237127.3.579.2. 651 1988 Unknown [id number] 2.16.840.1.044822.3.579.2. 65 1988 Unknown [id number] 2.16.840.1.465014.3.579.2. 651 1959 Private Health Insurance [id number] Unknown [id number] 2.16.840.1.225518.3.579.2. 462 Unknown [id number] 2.16.840.1.724878.3.579.2. 462 Unknown [id number] 2.16.840.1.141953.3.579.2. 462 Unknown [id number] 2.16.840.1.569016.3.579.2. 462 Unknown [id number] 2.16840.1.423078.3.579.2. 462 Unknown [id number] 2.16840.1.844856.3.579.2. 462 Unknown [id number] 2.16.840.1.746308.3.579.2. 462 Unknown [id number] 2.16840.1.840080.3.579.2. 462 Unknown [id number] 2.16840.1.179972.3.579.2. 462 Unknown [id number] 2.840.1.470222.3.579.2. 462 Social History Date Type Detail Facility Start: 08-23-2000 End: 03-21-2025 Tobacco smoking status PRIS Current every day smoker [facility] Start: 08-23-2000 History of tobacco use Cigarette Smo ker [facility] Start: 01-27-2018 End: 01-24-2025 Cigarettes smoked current (pack per day) - Reported [facility] Start: 1988 Sex Assigned At Not on file [facility] Start: 05-25-2019 End: 09-28-2019 Alcohol intake Current non-drinker of alcohol (finding) [facility] Start: 12-05-2021 End: 03-21-2025 Tobacco use and exposure Smokeless tobacco non-user [facility] Start: 12-05-2021 End: 03-21-2025 Alcohol intake Ex-drinker (finding) [facility] Start: 12-05-2021 History SDOH Alcohol Frequency 1 [facility] Start: 12-05-2021 History SDOH Alcohol Comment once a month [facility] Start: 11-25-2021 End: 05-10-2022 Exposure to SARS-CoV-2 (event) Not sure [facility] Start: 1988 Sex Assigned At Female T [facility] Start: 04-16-2022 End: 01-24-2025 Housing Instability [facility] Start: 05-20-2023 Are you worried that in the next 2 months you may not have stable housing? Yes [facility] Start: 02-27-2022 Gender identity Identifies as female gender (finding) [facility] Start: 01-28-2020 Sexual orientation Bisexual (finding ) [facility] (I/We) worried wheth er (my/our) food would run out before (I/we) got money to buy more. Sometimes true [facility] Start: 03-21-2025 Tobacco Comment Currently tryi ng to quit [facility] NEGATED: Highlighted row Not [facility] Clinical Notes 07-04-2020 to 03-26-2025 Telephone Encounter - Mega Villeda RN - 03/23/2025 10:04 AM EDTTelephone Encounter - Mega Villeda RN - 03/23/2025 10:04 AM VANDANATCLatia bui PA-C - 03/21/2025 10:20 AM EDT Note Date & Type Note Facility 03-26-2025 Note HNO ID: [id number] Author: NATIVIDAD GONZALEZ SRNA Service: ? Author Type: Student Type: Anesthesia Procedure Notes Filed: 03/26/2025 07:56 Note Text: ANESTHESIOLOGY PROCEDURE NOTE Airway General Information Procedure Start Time/Medication Administration: 03/26/2025 7:43 AM Procedure End Time: 03/26/2025 7:47 AM Patient location during procedure: OR Timeout Performed Pre-procedure: timeout performed Consent Obtained: Yes Patient identity confirmed: arm band, care steam presser and patient Staffing Anesthesiologist: Geremias Serra MD STAFF RESEARCH ASSOCIATE: Romulo Vasquez APRN.STAFF RESEARCH ASSOCIATE SRNA: Natividad Gonzalez SRNA Performed by: BIANKA Indications and Patient Condition Indications for airway management: anesthesia Preoxygenated: yes anesthesia circuit Patient position: sniffing Method: asleep Cricoid Pressure: No Manual In-Line Stabilization: No Difficult Mask: No Airway Accessory: oral airway Final Airway Details Final airway type: supraglottic airway Number of attempts at approach: 1 Final Supraglottic Airway: i-gel Size 4 Seal Adequate: yes Failed airway: no Unrecognized esophageal intubation: no Airway not difficult SIGNATURE: BIANKA Siu PATIENT NAME: Cecilia Crum DATE: March 26, 2025 TIME: 7:56 AM CSN: [id number] [facility] 03-23-2025 Telephone encounter Note Scheduled at [place] on 03/26/25. Mega Villeda RN [facility] 03-23-2025 Miscellaneous Notes Scheduled at [place] on 03/26/25. Mega Villeda RN documented in this encounter [facility] 03-21-2025 History and physical note Images from the original note were not included. [facility] HISTORY AND PHYSICAL EXAMINATION SERVICE DATE: 03/21/2025 SERVICE TIME: 10:20 AM Recording using [employer] system software for draft documentation of the visit was discussed with the patient/authorized videotape sales representative; all questions welcomed and answered. Patient/authorized videotape sales representative agreed to proceed. PRIMARY CARE PHYSICIAN: Patrick Mcdermott APRN.[employer]ING [employer] Assessment Patient has the following medical conditions which may affect baltazar-operative course: 1. BMI 45.0-49.9, adult (HCC) (Z68.42) Body mass index is 49.62 kg/m . 2. PTSD (post-traumatic stress disorder) (F43.10) - History of PTSD, anxiety, and depression; managed with journaling. - No current suicidal or homicidal ideation. 3. Anxiety and depression (F41.9) - History of PTSD, anxiety, and depression; managed with journaling. - No current suicidal or homicidal ideation. 4. Urinary incontinence, unspecified type (R32) - Chronic urinary incontinence, not on rx. 5. Nicotine dependence, cigarettes, uncomplicated (F17.210) - Smoking since age 11; recently reduced to half a pack per day since February 20 (previously 1.5 packs/day) and working with primary care to quit. - Advised no tobacco or nicotine use on day of surgery. 6. Marijuana use (F12.90) - Uses marijuana 2-3 times per week, primarily smoking. - Advised to avoid marijuana use the week before surgery and strictly no use on day of surgery. ANESTHESIA FINDINGS: Intubation History: No history of difficult intubation. No abnormal airway history Significant Anesthesia Considerations: none Airway History: No history of difficult airway No abnormal airway history [place] Activity Status Index: METS: Walk indoors, such as around the house (1.75 METs) Do light work around the house, such as dusting or washing dishes (2.70 METs) Take care of self; that is eating, dressing, bathing, using the toilet (2.75 METs) DASI Score: 7.2 Patient denies any chest pain or undue shortness of breath with the above physical activity. Clinical Frailty Scale: 3. Well, with treated comorbid disease STOP-Bang Score: Snores loudly BMI greater than 35 kg/m^2 Denies feeling tired, fatigued, or sleepy during the daytime Has not been observed to stop breathing or choking/gasping during sleep Denies having high blood pressure Patient 50 years old or younger Does not have a large neck Non-male patient STOP-Bang Score: 2 I - PHYSICAL EVALUATION AIRWAY Patient intubated: No. Tracheostomy tube not present Mallampati: IV. TM distance: >3 FB. Neck ROM: full ROM without neurological symptoms. Mouth opening: adequate. Short neck: no. Thick neck: no DENTAL Dental findings: missing tooth/teeth. II - ANESTHESIA PLAN Beta Heriberto Monitoring Plan Post Procedure Analgesic Plan Prepared for Surgery: optimally prepared for surgery, pending [see comment]. -Labs pending (labs 03/15/2025 at [facility] ED visit with leukocytosis of 22.5; ?demargination from vomiting. Hgb 13.4, Hct 39.4, platelets 382) CONSULTS: Patient does not require consults for optimization at this time Planned Anesthetic: anesthesia choice The Following Tests/Procedures Have Been Initiated: Orders Placed This Encounter CBC diff Standing Status: Future Expected Date: 03/21/2025 Expiration Date: 06/20/2025 BMP Standing Status: Future Expected Date: 03/21/2025 Expiration Date: 06/20/2025 This is a virtual visit using [employer] video visit. It required patient-provider interaction for the medical decision making as documented below. REASON FOR VISIT: Cecilia Crum is a 34 year old female who is scheduled for Procedure(s): HYSTEROSCOPY, D & C (N/A) INSERTION DEVICE INTRAUTERINE (N/A) HYSTEROSCOPY W/ POLYPECTOMY W/ D&C (N/A) at the request of Dr. Keiko Rios for consultation. My final recommendation will be communicated back to the requesting physician by way of shared medical record or letter. Subjective The patient has the following: COVID-19 Immunization Status This patient has no relevant Health Maintenance data. CHIEF COMPLAINT: pre op HPI: Patient has been identified by name and date of : Yes Reason for contact: PACC visit Accompanied by: Self Cecilia Crum is a 34-year-old female, with a history of multiple ectopic pregnancies and miscarriages, presenting for preoperative evaluation prior to a scheduled hysteroscopy and D&C on March 26. Cecilia has a history of 19 pregnancies, all resulting in either ectopic pregnancies or miscarriages, with no gestations progressing beyond 5 weeks and no live births. She reports experiencing significant menorrhagia and passing blood clots during her menstrual cycles. Due to the emotional and physical pain associated with her losses, she initially sought a hysterectomy. However, her roller skates assembler recommended attempting other treatments first, leading to the decision for a hysteroscopy and D&C. This is a virtual visit. The visit was conducted using [employer] video visit. It required patient-provider interaction for the medical decision making as documented below. I have communicated my name and active licensure. The patient's identity and physical location were verified at the time of this visit. Either the patient or their legal videotape sales representative has been informed of the risks and benefits of and alternatives to treatment through a remote evaluation and consents to proceed with the evaluation remotely. REVIEW OF SYSTEMS: General: No weight loss, malaise or fevers. Neurological: Negative for: dementia, headaches, impaired sensorium, peripheral neuropathy, seizures, TIA and strokes. Respiratory: Positive for: tobacco use. Negative for: asthma, bronchitis, COPD, current cough, dyspnea, home oxygen, orthopnea, pneumonia within 6 weeks, URI < 2 weeks and obstructive sleep apnea. Cardiovascular: Negative for: abdominal aortic aneurysm, AICD/PPM, angina, anticoagulation therapy, arrhythmia, atrial fibrillation, CAD, chest pain, CHF, congenital heart defect, DVT/PE, hyperlipidemia, hypertension, recent NE, murmur/valvular heart disease, PTCA, PVD, open heart surgery and valve surgery. GI: Negative for: abdominal pain, GERD, GI bleed <30 days, hepatitis, liver disease, nausea, vomiting and ETOH >2 drinks/day. : Positive for: urinary incontinence. Negative for: on dialysis, dysuria, frequent urination, hematuria, renal failure and urinary tract infection. ROLLER STAKER: See HPI. Endocrine: Negative for: diabetes mellitus, hyperthyroidism and hypothyroidism. Hematology: Negative for: anemia, bruises/bleeds easily, factor V Leiden, hemophilia, thrombocytopenia, von Willebrand disease, transfusion of at least 4 units within 72 hours prior to surgery and chronic anti-coagulation/platelet meds. Oncology: No history of CA metastasis, chemo within 30 days, or radiotherapy within 90 days. No history of oncological symptoms or problems. Psych: Positive for: anxiety, bipolar disorder, depression and Marijuana Use. Negative for: ADD, ADHD and drug dependency. Product type: Edible and Flower. Frequency: 3-5 times per week. Musculoskeletal: Negative for joint pain or swelling, back pain or muscle pain. Skin: Negative for lesions, rash and itching. Implanted Devices: No implanted devices. PAST MEDICAL HISTORY Diagnosis Date Bipolar 1 disorder (HCC) Ectopic (HCC) multiple- patient said she was given little blue pill to pass all ectopic pregnancies but one Endometriosis Generalized anxiety disorder Osteoarthritis of right knee PCOS (polycystic ovarian syndrome) PTSD (post-traumatic stress disorder) PAST SURGICAL HISTORY Procedure Laterality Date HYSTEROSCOPY, DIAGNOSTIC (SEPARATE 03/02/2018 L'SCOPE DX W/WO BRUSHINGS/WASHINGS 03/02/2018 reopen fallopian tube chromotubation LAPAROSCOPIC CHOLECYSTECTOMY FAMILY HISTORY Problem Relation Age of Onset Heart disease Mother Seizures Father Anesthesia Problems No Family History Social History Tobacco Use Smoking status: Every Day Current packs/day: 0.50 Average packs/day: 1.5 packs/day for 24.6 years (36.8 ttl pk-yrs) Types: Cigarettes Start date: 2000 Smokeless tobacco: Never Tobacco comments: Currently trying to quit Vaping Use Vaping status: Never Used Substance Use Topics Alcohol use: Not Currently Drug use: Yes Frequency: 3.0 times per week Types: Marijuana Comment: smoking & edibles Prior to Admission medications as of 03/21/25 1009 Medication Sig Last Dose Taking norethindrone (AYGESTIN) 5 mg tablet Take 1 tablet by mouth once daily. Yes No medication comments found. ALLERGIES Allergen Reactions Aspirin Swelling Throat swelling Sulfamethoxazole Rash Trazodone Anaphylaxis Trimethoprim Rash Carrot Juice Hives Pt stated she is allergic to carrots. No rxn specified. Diazepam Other: See Comments Possibly passing out Ketorolac Trometham* Swelling my throat swells Peanut Other: See Comments Tramadol Anaphylaxis Latex Rash Objective PHYSICAL EXAM: (if completed, exam performed via video enabled technology) General: alert and oriented, healthy appearance and morbidly obese. Pertinent negatives noted - not distressed. Skin: normal color, no rash or lesions. HEENT: Head is normocephalic, no abnormality or lesion noted. Eyes show no injection and visual acuity is grossly normal Ears noted grossly normal hearing Nose exam notes external nose is normal without rhinorrhea Oropharynx exam notes moist mucous membranes with no noted tonsillar hypertrophy, erythremia or edema Uvula is midline. . Cardiovascular: Regular rate and rhythm per pt report. Respiratory: normal breath sounds, no wheezes or crackles. Equal chest rise with normal respiratory effort. Abdomen: soft. Pertinent negatives noted - not distended and not tender. No pain per palpation per patient. Extremities: no deformity, no edema or tenderness, no joint swelling or clubbing. Neurological: normal cognition and motor skills. Gait stated to be normal per patient. PAIN ASSESSMENT: VITALS: Pulse 84 Temp [no fevers[ Ht 5' 9 (1.75m) Wt 336 lb (152.4kg) LMP 02/24/2025 BMI 49.60 kg/(m^2). Diagnostic tests reviewed for today's visit: Lab Value Units Date High Low HB No results within date range. HCT No results within date range. WBC No results within date range. PLT No results within date range. NA No results within date range. K No results within date range. GLUC No results within date range. BUN No results within date range. CREAT No results within date range. PTSEC No results within date range. INR No results within date range. APTT No results within date range. ALT No results within date range. AST No results within date range. TBILI No results within date range. TSH No results within date range. Lab Value Units Date High Low HCGQT No results within date range. UHCG No results within date range. HCG, BODY* No results within date range. Lab Value Units Date High Low ABORHD No results within date range. ABSCREEN No results within date range. No results found for: HBA1C No results found for this or any previous visit (from the past 8760 hours). No results found for this or any previous visit (from the past 35696 hours). Instructions Given to Patient: Instructions located in the after visit summary. Patient given verbal and written preop instructions and voices comprehension and compliance. SIGNATURE: Latia Cardona PA-C PATIENT NAME: Cecilia Crum DATE: March 21, 2025 TIME: 10:20 AM PAGER/CONTACT #: [facility] 03-21-2025 History and physical note Images from the original note were not included. [facility] HISTORY AND PHYSICAL EXAMINATION SERVICE DATE: 03/21/2025 SERVICE TIME: 10:20 AM Recording using [employer] system software for draft documentation of the visit was discussed with the patient/authorized videotape sales representative; all questions welcomed and answered. Patient/authorized videotape sales representative agreed to proceed. PRIMARY CARE PHYSICIAN: Patrick Mcdermott APRN.[employer] Assessment Patient has the following medical conditions which may affect baltazar-operative course: 1. BMI 45.0-49.9, adult (HCC) (Z68.42) Body mass index is 49.62 kg/m . 2. PTSD (post-traumatic stress disorder) (F43.10) - History of PTSD, anxiety, and depression; managed with journaling. - No current suicidal or homicidal ideation. 3. Anxiety and depression (F41.9) - History of PTSD, anxiety, and depression; managed with journaling. - No current suicidal or homicidal ideation. 4. Urinary incontinence, unspecified type (R32) - Chronic urinary incontinence, not on rx. 5. Nicotine dependence, cigarettes, uncomplicated (F17.210) - Smoking since age 11; recently reduced to half a pack per day since February 20 (previously 1.5 packs/day) and working with primary care to quit. - Advised no tobacco or nicotine use on day of surgery. 6. Marijuana use (F12.90) - Uses marijuana 2-3 times per week, primarily smoking. - Advised to avoid marijuana use the week before surgery and strictly no use on day of surgery. ANESTHESIA FINDINGS: Intubation History: No history of difficult intubation. No abnormal airway history Significant Anesthesia Considerations: none Airway History: No history of difficult airway No abnormal airway history Rascon Activity Status Index: METS: Walk indoors, such as around the house (1.75 METs) Do light work around the house, such as dusting or washing dishes (2.70 METs) Take care of self; that is eating, dressing, bathing, using the toilet (2.75 METs) DASI Score: 7.2 Patient denies any chest pain or undue shortness of breath with the above physical activity. Clinical Frailty Scale: 3. Well, with treated comorbid disease STOP-Bang Score: Snores loudly BMI greater than 35 kg/m^2 Denies feeling tired, fatigued, or sleepy during the daytime Has not been observed to stop breathing or choking/gasping during sleep Denies having high blood pressure Patient 50 years old or younger Does not have a large neck Non-male patient STOP-Bang Score: 2 I - PHYSICAL EVALUATION AIRWAY Patient intubated: No. Tracheostomy tube not present Mallampati: IV. TM distance: >3 FB. Neck ROM: full ROM without neurological symptoms. Mouth opening: adequate. Short neck: no. Thick neck: no DENTAL Dental findings: missing tooth/teeth. II - ANESTHESIA PLAN Beta Heriberto Monitoring Plan Post Procedure Analgesic Plan Prepared for Surgery: optimally prepared for surgery, pending [see comment]. -Labs pending (labs 03/15/2025 at [facility] ED visit with leukocytosis of 22.5; ?demargination from vomiting. Hgb 13.4, Hct 39.4, platelets 382) CONSULTS: Patient does not require consults for optimization at this time Planned Anesthetic: anesthesia choice The Following Tests/Procedures Have Been Initiated: Orders Placed This Encounter CBC diff Standing Status: Future Expected Date: 03/21/2025 Expiration Date: 06/20/2025 BMP Standing Status: Future Expected Date: 03/21/2025 Expiration Date: 06/20/2025 This is a virtual visit using [employer] video visit. It required patient-provider interaction for the medical decision making as documented below. REASON FOR VISIT: Cecilia Crum is a 34 year old female who is scheduled for Procedure(s): HYSTEROSCOPY, D & C (N/A) INSERTION DEVICE INTRAUTERINE (N/A) HYSTEROSCOPY W/ POLYPECTOMY W/ D&C (N/A) at the request of Dr. Keiko Rios for consultation. My final recommendation will be communicated back to the requesting physician by way of shared medical record or letter. Subjective The patient has the following: COVID-19 Immunization Status This patient has no relevant Health Maintenance data. CHIEF COMPLAINT: pre op HPI: Patient has been identified by name and date of : Yes Reason for contact: PACC visit Accompanied by: Self Cecilia Crum is a 34-year-old female, with a history of multiple ectopic pregnancies and miscarriages, presenting for preoperative evaluation prior to a scheduled hysteroscopy and D&C on March 26. Cecilia has a history of 19 pregnancies, all resulting in either ectopic pregnancies or miscarriages, with no gestations progressing beyond 5 weeks and no live births. She reports experiencing significant menorrhagia and passing blood clots during her menstrual cycles. Due to the emotional and physical pain associated with her losses, she initially sought a hysterectomy. However, her roller skates assembler recommended attempting other treatments first, leading to the decision for a hysteroscopy and D&C. This is a virtual visit. The visit was conducted using [employer] video visit. It required patient-provider interaction for the medical decision making as documented below. I have communicated my name and active licensure. The patient's identity and physical location were verified at the time of this visit. Either the patient or their legal videotape sales representative has been informed of the risks and benefits of and alternatives to treatment through a remote evaluation and consents to proceed with the evaluation remotely. REVIEW OF SYSTEMS: General: No weight loss, malaise or fevers. Neurological: Negative for: dementia, headaches, impaired sensorium, peripheral neuropathy, seizures, TIA and strokes. Respiratory: Positive for: tobacco use. Negative for: asthma, bronchitis, COPD, current cough, dyspnea, home oxygen, orthopnea, pneumonia within 6 weeks, URI < 2 weeks and obstructive sleep apnea. Cardiovascular: Negative for: abdominal aortic aneurysm, AICD/PPM, angina, anticoagulation therapy, arrhythmia, atrial fibrillation, CAD, chest pain, CHF, congenital heart defect, DVT/PE, hyperlipidemia, hypertension, recent NE, murmur/valvular heart disease, PTCA, PVD, open heart surgery and valve surgery. GI: Negative for: abdominal pain, GERD, GI bleed <30 days, hepatitis, liver disease, nausea, vomiting and ETOH >2 drinks/day. : Positive for: urinary incontinence. Negative for: on dialysis, dysuria, frequent urination, hematuria, renal failure and urinary tract infection. ROLLER STAKER: See HPI. Endocrine: Negative for: diabetes mellitus, hyperthyroidism and hypothyroidism. Hematology: Negative for: anemia, bruises/bleeds easily, factor V Leiden, hemophilia, thrombocytopenia, von Willebrand disease, transfusion of at least 4 units within 72 hours prior to surgery and chronic anti-coagulation/platelet meds. Oncology: No history of CA metastasis, chemo within 30 days, or radiotherapy within 90 days. No history of oncological symptoms or problems. Psych: Positive for: anxiety, bipolar disorder, depression and Marijuana Use. Negative for: ADD, ADHD and drug dependency. Product type: Edible and Flower. Frequency: 3-5 times per week. Musculoskeletal: Negative for joint pain or swelling, back pain or muscle pain. Skin: Negative for lesions, rash and itching. Implanted Devices: No implanted devices. PAST MEDICAL HISTORY Diagnosis Date Bipolar 1 disorder (HCC) Ectopic (HCC) multiple- patient said she was given little blue pill to pass all ectopic pregnancies but one Endometriosis Generalized anxiety disorder Osteoarthritis of right knee PCOS (polycystic ovarian syndrome) PTSD (post-traumatic stress disorder) PAST SURGICAL HISTORY Procedure Laterality Date HYSTEROSCOPY, DIAGNOSTIC (SEPARATE 03/02/2018 L'SCOPE DX W/WO BRUSHINGS/WASHINGS 03/02/2018 reopen fallopian tube chromotubation LAPAROSCOPIC CHOLECYSTECTOMY FAMILY HISTORY Problem Relation Age of Onset Heart disease Mother Seizures Father Anesthesia Problems No Family History Social History Tobacco Use Smoking status: Every Day Current packs/day: 0.50 Average packs/day: 1.5 packs/day for 24.6 years (36.8 ttl pk-yrs) Types: Cigarettes Start date: 2000 Smokeless tobacco: Never Tobacco comments: Currently trying to quit Vaping Use Vaping status: Never Used Substance Use Topics Alcohol use: Not Currently Drug use: Yes Frequency: 3.0 times per week Types: Marijuana Comment: smoking & edibles Prior to Admission medications as of 03/21/25 1009 Medication Sig Last Dose Taking norethindrone (AYGESTIN) 5 mg tablet Take 1 tablet by mouth once daily. Yes No medication comments found. ALLERGIES Allergen Reactions Aspirin Swelling Throat swelling Sulfamethoxazole Rash Trazodone Anaphylaxis Trimethoprim Rash Carrot Juice Hives Pt stated she is allergic to carrots. No rxn specified. Diazepam Other: See Comments Possibly passing out Ketorolac Trometham* Swelling my throat swells Peanut Other: See Comments Tramadol Anaphylaxis Latex Rash Objective PHYSICAL EXAM: (if completed, exam performed via video enabled technology) General: alert and oriented, healthy appearance and morbidly obese. Pertinent negatives noted - not distressed. Skin: normal color, no rash or lesions. HEENT: Head is normocephalic, no abnormality or lesion noted. Eyes show no injection and visual acuity is grossly normal Ears noted grossly normal hearing Nose exam notes external nose is normal without rhinorrhea Oropharynx exam notes moist mucous membranes with no noted tonsillar hypertrophy, erythremia or edema Uvula is midline. . Cardiovascular: Regular rate and rhythm per pt report. Respiratory: normal breath sounds, no wheezes or crackles. Equal chest rise with normal respiratory effort. Abdomen: soft. Pertinent negatives noted - not distended and not tender. No pain per palpation per patient. Extremities: no deformity, no edema or tenderness, no joint swelling or clubbing. Neurological: normal cognition and motor skills. Gait stated to be normal per patient. PAIN ASSESSMENT: VITALS: Pulse 84 Temp [no fevers[ Ht 5' 9 (1.75m) Wt 336 lb (152.4kg) LMP 02/24/2025 BMI 49.60 kg/(m^2). Diagnostic tests reviewed for today's visit: Lab Value Units Date High Low HB No results within date range. HCT No results within date range. WBC No results within date range. PLT No results within date range. NA No results within date range. K No results within date range. GLUC No results within date range. BUN No results within date range. CREAT No results within date range. PTSEC No results within date range. INR No results within date range. APTT No results within date range. ALT No results within date range. AST No results within date range. TBILI No results within date range. TSH No results within date range. Lab Value Units Date High Low HCGQT No results within date range. UHCG No results within date range. HCG, BODY* No results within date range. Lab Value Units Date High Low ABORHD No results within date range. ABSCREEN No results within date range. No results found for: HBA1C No results found for this or any previous visit (from the past 8760 hours). No results found for this or any previous visit (from the past 15262 hours). Instructions Given to Patient: Instructions located in the after visit summary. Patient given verbal and written preop instructions and voices comprehension and compliance. SIGNATURE: Latia Cardona PA-C PATIENT NAME: Cecilia Crum DATE: March 21, 2025 TIME: 10:20 AM PAGER/CONTACT #: documented in this encounter [facility] 03-21-2025 Instructions Latia Cardona PA-C - 03/21/2025 10:14 AM EDT Images from the original note were not included. [facility] PATIENT PREOPERATIVE INSTRUCTIONS Keiko Rios MD has scheduled you for your procedure at this surgery center: [facility]: [phone] -- [address] [address]. Please read below carefully for your personalized instructions. Arrival Time for Surgery: - The Surgery Center or hospital where you are having surgery will call the afternoon before surgery (or Wednesday for Wednesday surgery) with a scheduled arrival time. - If you have not heard by 4 pm, please contact the surgery center above. Dietary Restrictions: - No solid food after midnight. - You may have 12 ounces of clear liquids (water, clear juices such as apple juice or gatorade, carbonated beverages, clear tea, black coffee, jello) until 2 hours before scheduled arrival at facility. - Do not drink any alcohol after midnight the night before your surgery. - no milk/creamer or other additives like honey - no pulp juices Medications: Unless instructed differently below, stay on all of your medications until your surgery. If you start any new medications after today's visit, please contact your surgeon. Pre-Surgery Med Instructions Medication Instructions norethindrone (AYGESTIN) 5 mg tablet Per surgeon's instructions If you are currently using a [id number] injectable or oral medication for diabetes or weight loss such as Dulaglutide (Trulicity), Exenatide (Byetta, Bydureon), Liraglutide (Victoza, Saxenda), Semaglutide (Ozempic, Wegovy, Rybelsus), or Tirzepatide (Mounjaro), the medicine should be stopped at least 7 days before surgery. These medicines can cause food to remain in your stomach for a very long time and increase the risks from surgery and anesthesia. Not stopping the medication for a long enough time may result in your surgery being rescheduled. If you start any new medications after today's visit, please contact the surgeon's office. Blood Thinning Medications: - Stop NSAIDS (Ibuprofen, Advil, Aleve, Motrin, Celebrex, Mobic, etc.) 7 days before surgery, as directed by your surgeon. - Stop Aspirin 7 days before surgery, as directed by your surgeon. - Stop herbal supplements 7 days before surgery. - You may take Tylenol (Acetaminophen) or any of your pain medications that do not contain aspirin or NSAIDS as needed. Important Reminders: - If you use CPAP/BIPAP, bring the machine with you to the surgery center. - If you are prescribed inhalers for breathing, continue using them. -Please be sure to brush your teeth and you can use mouth wash or rinse your mouth if dry. - Candy, mints, and tobacco products are NOT permitted the morning of surgery. - Hearing aids, dentures and glasses may be worn the morning of surgery. - If you have dentures or partials, please have a case to place them in or leave at home day of surgery. - NO jewelry, body piercings, makeup, hairpins or contacts are to be worn the day of surgery. If you develop symptoms such as a fever, cold, or flu, or have other changes to your health within TWO DAYS of scheduled surgery or the morning of surgery, please contact the surgery center above. Personal Belongings: -Please have photo ID and insurance cards. -If you do not have a copy of advance directives on file with us, please bring a copy with you on the day of surgery. - Leave ALL valuables and money at home or with family members. For Outpatient Procedures: - YOU MUST HAVE A RESPONSIBLE REEL OPERATOR TAKE YOU HOME. A STAFF NURSE ICU RESOURCE TEAM OR RELEASE SPECIALIST CANNOT BE MADE A RESPONSIBLE REEL OPERATOR. - We recommend that a responsible person stays with you overnight to take care of you. - You cannot stay in a hotel alone after outpatient surgery. You will not be permitted to have your surgery, if you do not have someone to take care of you. Please be aware that emergency situations arise, which may delay or change your surgical time. If this happens, we will notify you as soon as possible and regret any inconvenience. If you already have an Advance Directive, please fax a copy to [phone] or email to for it to be added to your chart. If you do not have an Advance Directive, you can find the appropriate form and more information at [email or web address]. We recommend that you complete the Advance Directive form found on the website and bring it with you the day of your surgery. It can be witnessed and scanned into your chart that day. Latia Cardona PA-C documented in this encounter [facility] 03-16-2025 Note HNO ID: [id number] Author: JEN BAUTISTA MD Service: ? Author Type: Physician Type: Progress Notes Filed: 03/16/2025 13:25 Note Text: Transvaginal and abdominal pelvic ultrasound performed. Results under imaging tab. Jen Bautista MD [facility] 03-16-2025 History of Presen t illness Narrative Transvaginal and abdominal pelvic ultrasound performed. Results under imaging tab. Jen Bautista MD documented in this encounter [facility] 03-16-2025 Telephone encounter Note Patient is currently scheduled for surgery at [facility] on 03/26/25. [facility] 03-16-2025 Miscellaneous Notes Patient is currently scheduled for surgery at [facility] on 03/26/25. documented in this encounter [facility] 03-16-2025 Discharge summary [facility] 03-16-2025 Radiology Diagnostic study note [facility] Imaging Services [address] [address] Abdomen/Pelvis W IV Cont ONLY MR#: [id number] Acct: [id number] Name: CECILIA ABBASI Rep #: [id number] : 1990 F 34 From: Maria Alejandra Escamilla MD PCP: Patrick Mcdermott NP-C Status: REG E R Study:Abdomen/Pelvis W IV Cont ONLY Date of E xam: 03/15/25 Exam# [id number] Ordering Dr: Jai Arizmendi MD PROCEDURE: ABDOMEN/PELVIS W IV CONT ONLY 03/15/2025 REASON FOR EXAM: PAIN, LEUKOCYTOSIS TECHNIQUE: ABDOMEN/PELVIS W IV CONT ONLY Coronal and Sagittal reconstruction series were provided. CONTRAST: Isovue 370 VOLUME: 92 mL One or more dose reduction techniques were used (e.g., Automated exposure control, adjustment of the mA and/or kV according to patient size, use of iterative reconstruction technique. RADIATION DOSE SUMMARY: CTDlvol: 37 mGy DLP: 1426 mGycm COMPARISON: 01/14/2025 FINDINGS: Clear lung bases. Normal heart size. Diffuse hepatic steatosis. Status post cholecystectomy. Normal pancreas, spleen, adrenal glands left kidney. Small simple right renal cyst. No hydronephrosis or ureteral stone. Normal bladder. Unremarkable uterus and ovaries. No retroperitoneal or pelvic adenopathy. No free air. Nondistended bowel. Normal appendix. No acute large bowel findings. No acute abdominal wall findings. CT/Abdomen/Pelvis W IV Cont ONLY IMPRESSION: No acute findings Reading Location: [place] [address] CC: PROMOTIONS ASSISTANT-C Patrick Mcdermott; Dr. Jai Arizmendi MD ~ Correctional Maintenance Technician: Signed [facility] 03-15-2025 Discharge summary Note Date/Time March 16, 2025 12:13am [facility] Medical Records Department [address] [place] [address] Emergency Department Summary 03/15/25 MR#: [id number] Acct: [id number] Name: CECILIA ABBASI Rep #:[id number] : 1990 34 From: Jai Arizmendi MD PCP: Patrick Mcdermott, PROMOTIONS ASSISTANT-C Status:REG E R Location: ED HPI HPI - Female History of Present Illness Chief Complaint: Vag Bleeding Narrative Narrative: 34-year-old female presents with vaginal bleeding that she has had for the last 7 days. She relates history that she started seeing Keiko Rios with the [facility] as her CRUDE OIL TREATER. Her history and physical is mildly limited because she is writhing around the bed, and standing up. She states that she has had nausea and vomiting. She was put on Aygestin by the CRUDE OIL TREATER to help withvaginal bleeding. She states she is scheduled for a D&C on March 26, approximately 11 days from now. She was taking the Aygestin, but 7 days ago started having vaginal bleeding. Her significant other states that she has beenhaving heavy vaginal bleeding and increased her pad usage from about 4 pads a day to 8. Her pads are always saturated. She has been having lower abdominal pain as well. [facility] Medical History PTSD (post-traumatic stress disorder) Bipolar 1 disorder Anxiety Osteoarthritis of right knee Right knee pain Home Medications ?Medication ?Instructions ?Recorded ?Last Taken ?Type ondansetron 4 mg disintegrating 4 mg PO Q8H PRN PRN Na usea #10 tabs 09/16/24 Unknown Rx tablet Allergy/AdvReac Type Severity Reaction Status Date / Time trazodone Allergy Severe Anaphylaxis Verified 03/15/25 21:00 sulfamethoxazole (From Allergy Intermediate Rash Verified 03/15/25 21:00 Bactrim) trimethoprim (From Bactrim) Allergy Intermediate Rash Verified 03/15/25 21:00 aspirin Allergy Swelling Verified 03/15/25 21:00 peanut (peanuts) Allergy Other Verified 03/15/25 21:00 diazepam (From Valium) AdvReac Other Verified 03/15/25 21:00 Family History Mother Heart disease Father Seizures Surgical History H/O laparoscopy History of cholecystectomy Social History household members: spouse and family Smoking Status: Current every day smoker tobacco type: cigarettes and e-cigarettes alcohol intake: never ROS ROS ED ROS Narrative Review of systems positive for nausea and vomiting. Lower abdominal/pelvic pain. Positive vaginal bleeding for 7 days. No fevers or chills. No dysuria or hematuria. No upper abdominal pain. EXAM Physical Exam Narrative Exam Narrative: Exam is mildly limited secondary to patient writhing around on the cot, standingup and dry heaving into the trash can. Cardiovascular examination reveals mild tachycardia. Lungs are clear to auscultation bilaterally. Abdomen is soft, obese, with minimal lower abdominal tenderness. Neurological examination nonfocal in the lateralizing. Psychiatric examination is mildly manic. Const Vital Signs: 03/15/25 20:58 03/15/25 22:57 03/16/25 00:00 Temperature 98.5 F Temperature Source Oral Pulse Rate 121 H 95 89 Respiratory Rate 40 H 18 18 Blood Pressure 149/138 H 135/84 H 185/106 H Blood Pressure Mean 141 101 132 Pulse Ox 98 97 100 Oxygen Delivery Method Room Air Room Air Room Air MDM MDM MDM Narrative Medical decision making narrative: The differential diagnosis includes but not limited to irregular vaginal bleeding versus ectopic versus mental menorrhagia versus pancreatitis. I reviewed the patient's prior ED visits. She has been seen previously for abdominal pain and required Haldol 2 mg intravenously. In fact, I had seen her previously and ordered laboratory work but she ended up eloping from the emergency department. Blood work was obtained and she does have a leukocytosis of 22.5 which may be demargination from vomiting. Hemoglobin is 13.4 with hematocrit 39.4, and normal although she states that she has been having heavy vaginal bleeding for 7days. Platelet count normal at 382. CMP is remarkable for slightly elevated anion gap of 22 with a glucose of 130, but she has normal sodium of 139 potassium 3.4, chloride 101, and carbon dioxide is low at 15.4 which may be fromhyperventilation causing her anion gap. I do not think she is in diabetic ketoacidosis. LFTs are grossly unremarkable. Lipase normal at 25 so I doubt pancreatitis. Serum is negative. I will defer pelvic examination because on repeat examination after Haldol she is resting comfortably on the cot. She is not having any upper abdominal pain but given her leukocytosis I discussed with her CT imaging of the abdomen and pelvis. I also discussed the patient with Dr. Davies with CRU[facility]. The patient states that she has an appointment tomorrow for pelvic examination and is scheduled for IUD after D&C on March 26, [address] Davies did not have any further suggestions except for to follow-up tomorrow as scheduled and continue the Aygestin regarding the vaginal bleeding. I reviewed the radiology report of the CT of the abdomen pelvis and there is no acute process. Upon repeat examination, she is still resting comfortably but did require 1 dose of morphine and ondansetron. At this point in time, I feel she can be discharged to follow-up with her CRUDE OIL TREATER as scheduled tomorrow. They will be able to manage her vaginal bleeding. Return instructions to the emergency department were reviewed. Disposition is discharged home in stable condition. History & Record Review Discussion w/independent historian: Patient Additional record(s) reviewed:: Prior ED visit (Received Haldol previously) Lab Data Attestation: I reviewed the patient's lab results. Labs: Laboratory Results - last 24 hr 03/15/25 21:31 WBC 22.5 H RBC 4.52 Hgb 13.4 Hct 39.4 MCV 87.2 MCH 29.6 MCHC 34.0 RDW Std Deviation 49.0 H RDW Coeff of Linda 15.4 H Plt Count 382 MPV 10.4 Immature Gran % (Auto) 0.600 Neut % (Auto) 74.6 H Lymph % (Auto) 17.0 L [place] % (Auto) 7.7 Eos % (Auto) 0.0 Baso % (Auto) 0.1 Absolute Neuts (auto) 16.8 H Absolute Lymphs (auto) 3.83 Nucleated RBC % 0 Differential Comment SCANNED Platelet Estimate ADEQUATE Sodium 139 Potassium 3.4 Chloride 101 Carbon Dioxide 15.4 L Anion Gap 22 H BUN 10 Creatinine 0.71 Estim Creat Clear Calc 170.30 Est GFR (MDRD) Non-Af 113 BUN/Creatinine Ratio 14.7 Glucose 130 H Calcium 9.5 Total Bilirubin 0.77 AST 28 ALT 15 Alkaline Phosphatase 88 Total Protein 7.8 Albumin 4.3 Globulin 3.6 Albumin/Globulin Ratio 1.2 Lipase 25 Serum , Qual NEGATIVE Radiography Diagnostic Testing: Clinical Impression(s) from Imaging Studies Abdomen/Pelvis CT 03/15/25 23:43 IMPRESSION: No acute findings Reading Location: [place] [address] Discharge Plan Triage Chief Complaint: Vag Bleeding ED Provider: Jai Arizmendi Dx/Rx/DC Orders Clinical Impression: Vaginal bleeding, Pelvic pain, Leukocytosis Instructions: ED Dysfunctional Uterine Bleeding, ED Pelvic Pain, Unknown Cause Prescriptions: No Action ondansetron 4 mg tablet,disintegrating 4 mg PO Q8H PRN PRN (Reason: Nausea) Qty: 10 0RF Primary Care Provider: Patrick Mcdermott NP Referrals: Keiko Rios MD [Med Staff - Active Staff] - Keep Natan appointment Patrick Mcdermott NP, PROMOTIONS ASSISTANT-C [Primary Care Provider] - Activity Restrictions/Additional Instructions: Follow-up with the [facility] CRUDE OIL TREATER as scheduled tomorrow. Continue yourAygestin as previously directed. Print Language: Cape Verdean Disposition Disposition: Home, Self Care What to do if you have Problems For any increased pain, shortness of breath, bleeding, nausea or vomiting, chestpain, or any unexpected problems, contact your Primary Care Provider. Call [facility] ([phone]) or report to the closest Emergency Room. Call 911 if necessary. 03/16/25 0013 <Electronically signed by Jai Arizmendi MD> Cosigner Signature (if applicable): CC: PROMOTIONS ASSISTANT-C Patrick Mcdermott ~ Signed [facility] Work Phone: [phone]) 165-811607-22-2025 Telephone encounter Note* Telephone Encounter - Minnie Leon LPN - 03/13/2025 11:21 AM EDT Surgery 03/26/25 at [facility]. Please approve order. [facility]07-22-2025 Miscellaneous Notes* Telephone Encounter - Minnie Leon LPN - 03/13/2025 11:21 AM EDT Surgery 03/26/25 at [facility]. Please approve order. [facility] History and physical note * Keiko Rios MD - 03/07/2025 12:52 PM EDT Pre-Op History and Physical HPI: The patient is a 34 year old female presenting for pre-operative visit. She is scheduled for hysteroscopy D&C, possible polyp resection, IUD insertion, for aub, adenomyosis, intramural fibroid and dysmenorrhea on 03/26/25. Procedure discussed along with risks, benefits and complications. Other alternatives discussed for management. Consent form signed? Yes. PAST MEDICAL HISTORY Diagnosis Date Bipolar 1 disorder (HCC) Ectopic (HCC) multiple- patient said she was given little blue pill to pass all ectopic pregnancies but one Endometriosis Generalized anxiety disorder Osteoarthritis of right knee PCOS (polycystic ovarian syndrome) PTSD (post-traumatic stress disorder) PAST SURGICAL HISTORY Procedure Laterality Date HYSTEROSCOPY, DIAGNOSTIC (SEPARATE 03/02/2018 L'SCOPE DX W/WO BRUSHINGS/WASHINGS 03/02/2018 reopen fallopian tube chromotubation LAPAROSCOPIC CHOLECYSTECTOMY Current Outpatient Medications Medication Sig Dispense Refill norethindrone (AYGESTIN) 5 mg tablet Take 1 tablet by mouth once daily. 30 tablet 0 No current facility-administered medications for this visit. ALLERGIES: Aspirin, Sulfamethoxazole, Trazodone, Trimethoprim, Carrot Juice, Diazepam, Ketorolac Tromethamine, Peanut, Tramadol, and Latex PERSONAL HISTORY: Social History Tobacco Use Smoking status: Every Day Types: Cigarettes Smokeless tobacco: Never Vaping Use Vaping status: Never Used Substance Use Topics Alcohol use: Not Currently Drug use: Yes Types: Marijuana FAMILY HISTORY: FAMILY HISTORY Problem Relation Age of Onset Heart disease Mother Seizures Father REVIEW OF SYMPTOMS: GENERAL: denies fevers or chills ENDOCRINOLOGY: has not been on steroids Cardiology : denies palpitations or chest pain Respiratory: denies SOB or cough Hematology: denies history of prolonged bleeding or easy bruising or VTE Allergy: Denies history of personal or family history of allergy to anesthesia PHYSICAL EXAMINATION: VITALS: Blood pressure 128/84, weight (!) 150.1 kg (331 lb), last menstrual period 02/24/2025. GENERAL: The patient is well nourished, well hydrated in no acute distress. , The patient is oriented to time, place, and person. NECK: Supple. No lynphadenopathy, normal thyroid, no thyromegaly. LUNGS: Clear to auscultation bilaterally. no wheezes, rhonchi or rales HEART: Regular rate and rhythm, Normal heart sounds, and No murmurs or gallops IMPRESSION: AUB, dysmenorrhea, intramural uterine fibroid PLAN: The risks/benefits/alternatives and personal involved for the planned hysteroscopy D&C with possible polyp resection and levonorgestrel IUD insertion were reviewed with the patient. Her questions were answered to her satisfaction and she desires to proceed. Consent was signed. I reviewed with her postop instructions and expectations. I have reviewed and updated past medical and surgical history, medications and allergies Keiko Rios M.D. [facility]07-16-2025 History and physical note* Keiko Rios MD - 03/07/2025 12:52 PM EDT Pre-Op History and Physical HPI: The patient is a 34 year old female presenting for pre-operative visit. She is scheduled for hysteroscopy D&C, possible polyp resection, IUD insertion, for aub, adenomyosis, intramural fibroid and dysmenorrhea on 03/26/25. Procedure discussed along with risks, benefits and complications. Other alternatives discussed for management. Consent form signed? Yes. PAST MEDICAL HISTORY Diagnosis Date Bipolar 1 disorder (HCC) Ectopic (HCC) multiple- patient said she was given little blue pill to pass all ectopic pregnancies but one Endometriosis Generalized anxiety disorder Osteoarthritis of right knee PCOS (polycystic ovarian syndrome) PTSD (post-traumatic stress disorder) PAST SURGICAL HISTORY Procedure Laterality Date HYSTEROSCOPY, DIAGNOSTIC (SEPARATE 03/02/2018 L'SCOPE DX W/WO BRUSHINGS/WASHINGS 03/02/2018 reopen fallopian tube chromotubation LAPAROSCOPIC CHOLECYSTECTOMY Current Outpatient Medications Medication Sig Dispense Refill norethindrone (AYGESTIN) 5 mg tablet Take 1 tablet by mouth once daily. 30 tablet 0 No current facility-administered medications for this visit. ALLERGIES: Aspirin, Sulfamethoxazole, Trazodone, Trimethoprim, Carrot Juice, Diazepam, Ketorolac Tromethamine, Peanut, Tramadol, and Latex PERSONAL HISTORY: Social History Tobacco Use Smoking status: Every Day Types: Cigarettes Smokeless tobacco: Never Vaping Use Vaping status: Never Used Substance Use Topics Alcohol use: Not Currently Drug use: Yes Types: Marijuana FAMILY HISTORY: FAMILY HISTORY Problem Relation Age of Onset Heart disease Mother Seizures Father REVIEW OF SYMPTOMS: GENERAL: denies fevers or chills ENDOCRINOLOGY: has not been on steroids Cardiology : denies palpitations or chest pain Respiratory: denies SOB or cough Hematology: denies history of prolonged bleeding or easy bruising or VTE Allergy: Denies history of personal or family history of allergy to anesthesia PHYSICAL EXAMINATION: VITALS: Blood pressure 128/84, weight (!) 150.1 kg (331 lb), last menstrual period 02/24/2025. GENERAL: The patient is well nourished, well hydrated in no acute distress. , The patient is oriented to time, place, and person. NECK: Supple. No lynphadenopathy, normal thyroid, no thyromegaly. LUNGS: Clear to auscultation bilaterally. no wheezes, rhonchi or rales HEART: Regular rate and rhythm, Normal heart sounds, and No murmurs or gallops IMPRESSION: AUB, dysmenorrhea, intramural uterine fibroid PLAN: The risks/benefits/alternatives and personal involved for the planned hysteroscopy D&C with possible polyp resection and levonorgestrel IUD insertion were reviewed with the patient. Her questions were answered to her satisfaction and she desires to proceed. Consent was signed. I reviewed with her postop instructions and expectations. I have reviewed and updated past medical and surgical history, medications and allergies Keiko Rios M.D. [facility]25 NoteHNO ID: [id number] Author: KEIKO RIOS MD Service: ? Author Type: Physician Type: Progress Notes Filed: 03/07/2025 17:30 Note Text: Cecilia Crum is a 34 year old female who presents for problem visit for menstrual issues . HPI: 34 YOF presents c/o menstrual issues. Recurrent loss. Now over past few years menses have gotten worse and gets pain and bleeding. Pain starts before the bleeding or with it and ibuprofent doesn't help. When bleeds gets worse pain. Changes pads q 1 hr at heaviest. Some clots. Gets nausea and vomiting. Worse over past year. Last menses only had light spotting for a day. S/p laparoscopy in 2018. Has very irregular bleeding, will skip menses then has had episodes that she bled 2 months in a row. Denies dyspareuina. Denies abnormal vaginal dicharge, itching or burning or STI. States she emotionally cannot go through another loss and doesn't want future child bearing. Last about 1 year ago. Laparoscopy in 2018 she thinks showed endometriosis. Denies h/o prolonged bleeding or easy bruising. When she was young age 14 was on depo. OB History [id number] Para0 Term0 Preterm0 AB19 Living0 SAB12 IAB0 Ectopic7 Multiple0 Live Births0 Bait Packer History LMP: 01/09/2025, Having periods Age at Menarche: Age at First : Age at Menopause: Bait Packer History Comments: Sexual Activity: Yes; No partner data on record Contraception: None PAST MEDICAL HISTORY Diagnosis Date Bipolar 1 disorder (HCC) Ectopic (HCC) Endometriosis Generalized anxiety disorder Osteoarthritis of right knee PCOS (polycystic ovarian syndrome) PTSD (post-traumatic stress disorder) PAST SURGICAL HISTORY Procedure Laterality Date HYSTEROSCOPY, DIAGNOSTIC (SEPARATE 03/02/2018 L'SCOPE DX W/WO BRUSHINGS/WASHINGS 03/02/2018 reopen fallopian tube chromotubation LAPAROSCOPIC CHOLECYSTECTOMY FAMILY HISTORY Problem Relation Age of Onset Heart disease Mother Seizures Father Social History Tobacco Use Smoking status: Every Day Types: Cigarettes Smokeless tobacco: Never Vaping Use Vaping status: Never Used Substance Use Topics Alcohol use: Not Currently Drug use: Yes Types: Marijuana Current Outpatient Medications Medication Sig DULoxetine (CYMBALTA) 30 mg capsule Take 1 capsule by mouth once daily. (Patient not taking: Reported on 01/24/2025) No current facility-administered medications for this visit. Allergies As of Date: 03/07/2025 Allergen Noted Reaction ASPIRIN 01/14/2025 Swelling SULFAMETHOXAZOLE 01/14/2025 Rash TRAZODONE 01/14/2025 Anaphylaxis TRIMETHOPRIM 01/14/2025 Rash CARROT JUICE 01/30/2018 Hives DIAZEPAM 01/14/2025 Other: See Comments KETOROLAC TROMETHAMINE 01/30/2018 Swelling PEANUT 01/14/2025 Other: See Comments TRAMADOL 06/25/2016 Anaphylaxis LATEX 03/17/2016 Rash Fully Assessed 03/07/2025 REVIEW OF SYSTEMS Abdomen: No bloating, early satiety, indigestion, or increased flatulence. No abdominal pain, nausea, vomiting, diarrhea, or constipation. Bladder: No dysuria, gross hematuria, urinary frequency, urinary urgency. Some HELLEN w/ coughing> Has been dx w/ a lot of UTI Breast: No breast lumps, nipple d/c, overlying skin changes, redness or skin retraction and denies nipple discharge. Expanded ROS: n/a Allergies and current medication updated:Yes SENSITIVE EXAM: Sensitive exam not performed. EXAM: LMP 01/09/2025 GENERAL: pleasant, female in no apparent distress ASSESSMENT AND PLAN: Assessment AND Plan Dysmenorrhea Orders: PELVIC US WHI; Future Abnormal uterine bleeding (AUB) Orders: PELVIC US WHI; Future BMI 45.0-49.9, adult (HCC) Intramural uterine fibroid Orders: PELVIC US WHI; Future r/b/a to various treatment options reviewed. Not candidate for combined hormonal contraceptives due to tob use. D/w her progestin therapy, hysteroscopy DANDC with IUD insertion, IUD insertion in office. She is hesitant. I d/w her short and long-term risks of hyst and that may not solve her issues. D/w her with reported history of endometriosis that IUD is a great treatment option for this. NSAID/tylenol prn dysmenorrhea. D/w her locally none of our providers in our office perform hyst on high risk patients or do robotic hysts. D/w her would refer to [facility] if desires hyst or fails IUD. She desires to proceed w/ DANDC/IUD insertion for now. check pelvic US aygestin to prevent bleeding until surgery Keiko Rios [facility]07-16-2025 History of Present illness Narrative* Keiko Rios MD - 03/07/2025 11:14 AM EDT Cecilia Crum is a 34 year old female who presents for problem visit for menstrual issues . HPI: 34 YOF presents c/o menstrual issues. Recurrent loss. Now over past few years menseshave gotten worse and gets pain and bleeding. Pain starts before the bleeding or with it and ibuprofent doesn't help. When bleeds gets worse pain. Changes pads q 1 hr at heaviest. Some clots. Gets nausea and vomiting. Worse over past year. Last menses only had light spotting for a day. S/p laparoscopy in 2018. Has very irregular bleeding, will skip menses then has had episodes that she bled 2 months in a row. Denies dyspareuina. Denies abnormal vaginal dicharge, itching or burning or STI. States she emotionally cannot go through another loss and doesn't want future child bearing. Last about 1 year ago. Laparoscopy in 2018 she thinks showed endometriosis. Denies h/o prolonged bleeding or easy bruising. When she was young age 14 was on depo. OB History [id number] Para0 Term0 Preterm0 AB19 Living0 SAB12 IAB0 Ectopic7 Multiple0 Live Births0 Bait Packer History LMP: 01/09/2025, Having periods Age at Menarche: Age at First : Age at Menopause: Bait Packer History Comments: Sexual Activity: Yes; No partner data on record Contraception: None PAST MEDICAL HISTORY Diagnosis Date Bipolar 1 disorder (HCC) Ectopic (HCC) Endometriosis Generalized anxiety disorder Osteoarthritis of right knee PCOS (polycystic ovarian syndrome) PTSD (post-traumatic stress disorder) PAST SURGICAL HISTORY Procedure Laterality Date HYSTEROSCOPY, DIAGNOSTIC (SEPARATE 03/02/2018 L'SCOPE DX W/WO BRUSHINGS/WASHINGS 03/02/2018 reopen fallopian tube chromotubation LAPAROSCOPIC CHOLECYSTECTOMY FAMILY HISTORY Problem Relation Age of Onset Heart disease Mother Seizures Father Social History Tobacco Use Smoking status: Every Day Types: Cigarettes Smokeless tobacco: Never Vaping Use Vaping status: Never Used Substance Use Topics Alcohol use: Not Currently Drug use: Yes Types: Marijuana Current Outpatient Medications Medication Sig DULoxetine (CYMBALTA) 30 mg capsule Take 1 capsule by mouth once daily. (Patient not taking: Reported on 01/24/2025) No current facility-administered medications for this visit. Allergies As of Date: 03/07/2025 Allergen Noted Reaction ASPIRIN 01/14/2025 Swelling SULFAMETHOXAZOLE 01/14/2025 Rash TRAZODONE 01/14/2025 Anaphylaxis TRIMETHOPRIM 01/14/2025 Rash CARROT JUICE 01/30/2018 Hives DIAZEPAM 01/14/2025 Other: See Comments KETOROLAC TROMETHAMINE 01/30/2018 Swelling PEANUT 01/14/2025 Other: See Comments TRAMADOL 06/25/2016 Anaphylaxis LATEX 03/17/2016 Rash Fully Assessed 03/07/2025 REVIEW OF SYSTEMS Abdomen: No bloating, early satiety, indigestion, or increased flatulence. No abdominal pain, nausea, vomiting, diarrhea, or constipation. Bladder: No dysuria, gross hematuria, urinary frequency, urinary urgency. Some HELLEN w/ coughing> Has been dx w/ a lot of UTI Breast: No breast lumps, nipple d/c, overlying skin changes, redness or skin retraction and denies nipple discharge. Expanded ROS: n/a Allergies and current medication updated:Yes SENSITIVE EXAM: Sensitive exam not performed. EXAM: LMP 01/09/2025 GENERAL: pleasant, female in no apparent distress ASSESSMENT AND PLAN: Assessment & Plan Dysmenorrhea Orders: PELVIC US WHI; Future Abnormal uterine bleeding (AUB) Orders: PELVIC US WHI; Future BMI 45.0-49.9, adult (HCC) Intramural uterine fibroid Orders: PELVIC US WHI; Future r/b/a to various treatment options reviewed. Not candidate for combined hormonal contraceptives dueto tob use. D/w her progestin therapy, hysteroscopy D&C with IUD insertion, IUD insertion in office. She is hesitant. 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 D/w her with reported history of endometriosis that IUD is a great treatment option for this. NSAID /tylenol prn dysmenorrhea. D/w her locally none of our providers in our office perform hyst on highrisk patients or do robotic hysts. D/w her would refer to [facility] if desires hyst or fails IUD. She desires to proceed w/ D&C/IUD insertion for now. check pelvic US aygestin to prevent bleeding until surgery Keiko Rios MD documented in this encounterUniversity [facility]06-04-2025 NoteHNO ID: [id number] Author: DANNY BOYER MD Service: ? Author Type: Physician Type: Progress Notes Filed: 01/29/2025 11:02 Note Text: Cecilia Crum is a 34 year old female who presents for problem visit subsequent to ER visit for persistent pelvic pain of of more 10 years duration.. Missed work and lost jobs due to pelvic pain. Unremarkable abd/pelvic CT at [facility] on 01-14-25. .Hx of recurrent loss 19/?7 ectopics treated medically. Rec made for hysterectomy but physician changed practices and is not accessible.Not interested in medical/IUD therapy. laparotomy in 2018 revealed unremarkable abdominal visera, normal appearing uterus, tubes and ovaries. HPI: as above OB History [id number] Para0 Term0 Preterm0 AB19 Living0 SAB12 IAB0 Ectopic7 Multiple0 Live Births0 Bait Packer History LMP: 01/09/2025, Having periods Age at Menarche: Age at First : Age at Menopause: Bait Packer History Comments: Sexual Activity: Yes; No partner data on record Contraception: None PAST MEDICAL HISTORY Diagnosis Date Bipolar 1 disorder (HCC) Ectopic (HCC) Endometriosis Generalized anxiety disorder Osteoarthritis of right knee PCOS (polycystic ovarian syndrome) PTSD (post-traumatic stress disorder) PAST SURGICAL HISTORY Procedure Laterality Date L'SCOPE DX W/WO BRUSHINGS/WASHINGS LAPAROSCOPIC CHOLECYSTECTOMY FAMILY HISTORY Problem Relation Age of Onset Heart disease Mother Seizures Father Social History Tobacco Use Smoking status: Every Day Types: Cigarettes Smokeless tobacco: Never Vaping Use Vaping status: Never Used Substance Use Topics Alcohol use: Not Currently Drug use: Yes Types: Marijuana Current Outpatient Medications Medication Sig DULoxetine (CYMBALTA) 30 mg capsule Take 1 capsule by mouth once daily. (Patient not taking: Reported on 01/24/2025) No current facility-administered medications for this visit. Allergies As of Date: 01/24/2025 Allergen Noted Reaction ASPIRIN 01/14/2025 Swelling SULFAMETHOXAZOLE 01/14/2025 Rash TRAZODONE 01/14/2025 Anaphylaxis DIAZEPAM 01/14/2025 Other: See Comments PEANUT 01/14/2025 Other: See Comments reviewed none REVIEW OF SYSTEMS Abdomen: No bloating, early satiety, indigestion, or increased flatulence. No abdominal pain, nausea, vomiting, diarrhea, or constipation. Bladder: incontinence. Breast: No breast lumps, nipple d/c, overlying skin changes, redness or skin retraction. Expanded ROS: N/A Allergies and current medication updated:Yes SENSITIVE EXAM: The sensitive examination was discussed with the Patient or Patient's Authorized Mine Inspector Federal. As applicable, any other physician, advance practice provider, medical student, or other health professional student that will be observing or involved in the sensitive examination for educational or training purposes was discussed with the Patient or Authorized Mine Inspector Federal. The Patient or Authorized Mine Inspector Federal has agreed to proceed with the sensitive examination. (Sensitive examination includes inspection and/or palpation of the breasts, pelvis, prostate and anorectal regions). EXAM: Wt 328 lb (148.8kg) LMP 01/09/2025 GENERAL: pleasant, female in no apparent distress PELVIC: external genitalia normal, normal Bartholin's glands, urethra, [place]'s glands, no vulvar lesions, no cervical lesions, good vaginal support, physiologic discharge present, normal appearing perineal body and perianal region BIMANUAL: uterus normal size, shape and consistency, no adnexal masses, and non-tender ASSESSMENT AND PLAN: Assessment AND Plan Encounter for screening for malignant neoplasm of cervix Special screening examination for human papillomavirus (HPV) Pelvic pain in female Recurrent loss without current Mixed stress and urge urinary incontinence lengthy conversation with patient and partner with careful review of medical records. Plan consult with colleague for definitive tx/hysterectomy > 50 min Danny Boyer, [facility]06-04-2025 History of Present illness Narrative* Danny Boyer MD - 01/24/2025 8:23 AM EDT Cecilia Crum is a 34 year old female who presents for problem visit subsequent to ER visit for persistent pelvic pain of of more 10 years duration.. Missed work and lost jobs due to pelvic pain. Unremarkable abd/pelvic CT at [facility] on 01-14-25. .Hx of recurrent loss 19/?7 ectopics treated medically. Rec made for hysterectomy but physician changed practices and is not accessible.Not interested in medical/IUD therapy. laparotomy in 2018 revealed unremarkable abdominal visera, normal appearing uterus, tubes and ovaries. HPI: as above OB History [id number] Para0 Term0 Preterm0 AB19 Living0 SAB12 IAB0 Ectopic7 Multiple0 Live Births0 Bait Packer History LMP: 01/09/2025, Having periods Age at Menarche: Age at First : Age at Menopause: Bait Packer History Comments: Sexual Activity: Yes; No partner data on record Contraception: None PAST MEDICAL HISTORY Diagnosis Date Bipolar 1 disorder (HCC) Ectopic (HCC) Endometriosis Generalized anxiety disorder Osteoarthritis of right knee PCOS (polycystic ovarian syndrome) PTSD (post-traumatic stress disorder) PAST SURGICAL HISTORY Procedure Laterality Date L'SCOPE DX W/WO BRUSHINGS/WASHINGS LAPAROSCOPIC CHOLECYSTECTOMY FAMILY HISTORY Problem Relation Age of Onset Heart disease Mother Seizures Father Social History Tobacco Use Smoking status: Every Day Types: Cigarettes Smokeless tobacco: Never Vaping Use Vaping status: Never Used Substance Use Topics Alcohol use: Not Currently Drug use: Yes Types: Marijuana Current Outpatient Medications Medication Sig DULoxetine (CYMBALTA) 30 mg capsule Take 1 capsule by mouth once daily. (Patient not taking: Reported on 01/24/2025) No current facility-administered medications for this visit. Allergies As of Date: 01/24/2025 Allergen Noted Reaction ASPIRIN 01/14/2025 Swelling SULFAMETHOXAZOLE 01/14/2025 Rash TRAZODONE 01/14/2025 Anaphylaxis DIAZEPAM 01/14/2025 Other: See Comments PEANUT 01/14/2025 Other: See Comments reviewed none REVIEW OF SYSTEMS Abdomen: No bloating, early satiety, indigestion, or increased flatulence. No abdominal pain, nausea, vomiting, diarrhea, or constipation. Bladder: incontinence. Breast: No breast lumps, nipple d/c, overlying skin changes, redness or skin retraction. Expanded ROS: N/A Allergies and current medication updated:Yes SENSITIVE EXAM: The sensitive examination was discussed with the Patient or Patient's Authorized Mine Inspector Federal. As applicable, any other physician, advance practice provider, medical student, or other health professional student that will be observing or involved in the sensitive examination for educational or training purposes was discussed with the Patient or Authorized Mine Inspector Federal. The Patient or Authorized Mine Inspector Federal has agreed to proceed with the sensitive examination. (Sensitive examination includes inspection and/or palpation of the breasts, pelvis, prostate and anorectal regions). EXAM: Wt 328 lb (148.8kg) LMP 01/09/2025 GENERAL: pleasant, female in no apparent distress PELVIC: external genitalia normal, normal Bartholin's glands, urethra, [place]'s glands, no vulvar lesions, no cervical lesions, good vaginal support, physiologic discharge present, normal appearing perineal body and perianal region BIMANUAL: uterus normal size, shape and consistency, no adnexal masses, and non-tender ASSESSMENT AND PLAN: Assessment & Plan Encounter for screening for malignant neoplasm of cervix Special screening examination for human papillomavirus (HPV) Pelvic pain in female Recurrent loss without current Mixed stress and urge urinary incontinence lengthy conversation with patient and partner with careful review of medical records. Plan consult with colleague for definitive tx/hysterectomy > 50 min Danny Boyer MD documented in this encounterUniversity Hospitals [facility]01-23-2025 NoteDischarge Instructions Discharge Summary [address] [address] [id number] 09/14/2024 Patient: CECILIA SENIOR Sex: Female : 1990 Age: 34y Thank you for visiting [facility]. You have been evaluated today by Cole Carrillo M.D. for the following condition(s): INSTRUCTIONS Eloped: 12:41 09/14/2024. Patient left the Emergency Department without completion of treatment. EDstaff was not notified prior to leaving the department. Patient Signature Facility Mine Inspector Federal Date/Time General Instructions with ExitWriter [address] [address] [id number] 09/14/2024 Patient: CECILIA SENIOR Sex: Female : 1990 Age: 34y Thank you for visiting [facility]. You have been evaluated today by Cole Carrillo M.D. for the following condition(s): 1 of 2 Discharge Instructions INSTRUCTIONS Eloped: 12:41 09/14/2024. Patient left the Emergency Department without completion of treatment. EDstaff was not notified prior to leaving the department. 2 of 2Joel [facility]11-26-2024 NoteDischarge [address] [facility] [address] [place] [address] [phone] 07/18/2024 Patient: CECILIA SENIOR Sex: Female : 1990 Age: 34y Thank you for visiting [facility]. You have been evaluated today by Mary Nicole D.O. for the following condition(s): Principal Diagnosis Acute generalized abdominal pain. Vomiting with nausea and dehydration. Not bilious. Acute urinary tract infection with cystitis. No hematuria. Not associated with indwelling catheter. Hypokalemia INSTRUCTIONS Take clear liquids only. (Take medication as prescribed. CT scan was okay. No acute disease. Our radiologist will review films in the morning.). Warnings: GENERAL WARNINGS: Return or contact your physician immediately if your condition worsens or changes unexpectedly, if not improving as expected, or if other problems arise. Prescription Medications: potassium chloride ER 20 mEq tablet,extended release(part/cryst): Take 1 tablet by mouth twice a day for 10 days, dispense 20 tablet. Refills 0. Pharmacy: [facility] [id number] [id number]. 1 of 13 Discharge Instructions dicyclomine 20 mg tablet: Take 1 tablet by mouth four times a day as needed for pain for 10 days, dispense 40 tablet. Refills 0. Pharmacy: [facility] [id number] [place] [address]. promethazine 25 mg tablet: Take 1 tablet by mouth every six hours for nausea/vomiting for 5 days, dispense 20 tablet. Refills 0. Pharmacy: [facility] [id number] [place] [address]. cephalexin 500 mg tablet: Take 1 tablet by mouth every eight hours for 10 days, dispense 30 tablet.Refills 0. Pharmacy: [facility] [id number] [id number]. Understanding of the discharge instructions verbalized by patient and family. Follow-up with: Patrick Mcdermott, JAMES, PROCESS SUPERVISOR, BOTTOM TURNING LATHE TENDER-C, [facility], [facility], [facility], Phone: [phone], [address], [place] [address]. Follow up in three days evenif well. Call for an appointment. Reason for referral: evaluation and treatment. Summary of care provided topatient and family. You have been given the following additional information: Unknown Causes of Abdominal Pain (Female) Vomiting (Adult) Hypokalemia Bladder Infection, Female (Adult) Patient Signature Facility Mine Inspector Federal Date/Time 2 of 13 Discharge Instructions General Instructions with ExitWriter [place] [address] [place] [address] [phone] 07/18/2024 Patient: CECILIA SENIOR Sex: Female : 1990 Age: 34y Thank you for visiting [facility]. You have been evaluated today by Mary Nicole D.O. for the following condition(s): Principal Diagnosis Acute generalized abdominal pain. Vomiting with nausea and dehydration. Not bilious. Acute urinary tract infection with cystitis. No hematuria. Not associated with indwelling catheter. Hypokalemia INSTRUCTIONS Take clear liquids only. (Take medication as prescribed. CT scan was okay. No acute disease. Our radiologist will review films in the morning.). Warnings: GENERAL WARNINGS: Return or contact your physician immediately if your condition worsens or changes unexpectedly, if not improving as expected, or if other problems arise. Prescription Medications: potassium chloride ER 20 mEq tablet,extended release(part/cryst): Take 1 tablet by mouth twice a day for 10 days, dispense 20 tablet. Refills 0. Pharmacy: [facility] [id number] [place] [address]. dicyclomine 20 mg tablet: Take 1 tablet by mouth four times a day as needed for pain for 10 days, dispense 40 tablet. Refills 0. Pharmacy: [facility] [address] [place] [address]. 3 of 13 Discharge Instructions promethazine 25 mg tablet: Take 1 tablet by mouth every six hours for nausea/vomiting for 5 days, dispense 20 tablet. Refills 0. Pharmacy: [facility] [id number] [place] [address]. cephalexin 500 mg tablet: Take 1 tablet by mouth every eight hours for 10 days, dispense 30 tablet.Refills 0. Pharmacy: [facility] [id number] [place] [address]. Understanding of the discharge instructions verbalized by patient and family. Follow-up with: Patrick Mcdermott, JAMES, PROCESS SUPERVISOR, BOTTOM TURNING LATHE TENDER-C, [facility], [facility], [facility], Phone: [phone], [address], [place] [address]. Follow up in t (more contentnot included)...[facility]11-23-2024 Note Discharge Instructions Discharge Summary [place] [address] [place] [address] [phone] 07/15/2024 Patient: CECILIA SENIOR Sex: Female : 1990 Age: 34y Thank you for visiting [facility]. You have been evaluated today by Isabel Bliss D.O. for the following condition(s): Principal Diagnosis Acute nontraumatic pain. Suprapubic abdominal pain of unknown cause. Severe menorrhagia and metrorrhagia. INSTRUCTIONS (patient left before completing care. I did talk with her while she was was putting her IV in the trash can and walking out the door. Did told to return any time. She did not sign AMA papers or get discharge instructions because she would not wait. She said she needed take a shower immediately). Eloped: Patient left the Emergency Department without completion of treatment. ( Patient left the completing treatment stated she needed to get a shower. we do not have a shower in the emergency department. We did offer wash cloths and soap and water. She declined this. And left I did talk to her while she was walking out the door and told to return if any problems or concerns. Her blood work was not available at the time that she left. She was told to return if any problems or concerns). AMA warnings: Oriented to person, place, and time (patient was awake alert oriented no acute distress. After given the medications of Ativan and Benadryl she was more relaxed ( Not manic) but then got up and said she needed take a shower had left the department I did try talking to her when she was leaving. But shekept saying she needed to get a shower. I did tell her to come back at any time.). Gives appropriate answers. No indication for involuntary commitment is present. Speaks coherently. REFUSAL OF CARE STATEMENT (patient to review and sign in discharge instructions): 1 of 8 Discharge Instructions I have read this paragraph. I understand that a doctor at this [facility] wants to give me certain medical care. I know that I am welcome to return to this [facility] at any time to receive the recommended care or any other care that I may need at any time, regardless of my ability to pay for such care. Auditory hallucinationspresent. Delusional thinking present. Slurred speech present. You have been given the following additional information: Acute Pain, Uncertain Cause Unknown Causes of Abdominal Pain (Female) Dysfunctional Uterine Bleeding Patient Signature Facility Mine Inspector Federal Date/Time General Instructions with ExitWriter [facility] [address] [place] [address] [phone] 07/15/2024 Patient: CECILIA SENIOR Sex: Female : 1990 Age: 34y Thank you for visiting [facility]. You have been evaluated today by Isabel Bliss D.O. for the following condition(s): Principal Diagnosis Acute nontraumatic pain. Suprapubic abdominal pain of unknown cause. Severe menorrhagia and metrorrhagia. INSTRUCTIONS 2 of 8 Discharge Instructions (patient left before completing care. I did talk with her while she was was putting her IV in the trash can and walking out the door. Did told to return any time. She did not sign AMA papers or get discharge instructions because she would not wait. She said she needed take a shower immediately). Eloped: Patient left the Emergency Department without completion of treatment. ( Patient left the completing treatment stated she needed to get a shower. we do not have a shower in the emergency department. We did offer wash cloths and soap and water. She declined this. And left I did talk to her while she was walking out the door and told to return if any problems or concerns. Her blood work was not available at the time that she left. She was told to return if any problems or concerns). AMA warnings: Oriented to person, place, and time (patient was awake alert oriented no acute distress. After given the medications of Ativan and Benadryl she was more relaxed ( Not manic) but then got up and said she needed take a shower had left the department I did try talking to her when she was leaving. But shekept saying she needed to get a shower. I did tell her to come back at any time.). Gives appropriate answers. No indication for involuntary commitment is present. Speaks coherently. REFUSAL OF CARE STATEMENT (patient to review and sign in discharge instructions): I have read this paragraph. I understand that a doctor at this [facility] wants to give me certain medical care. I know that I am welcome to return to this hospital at any time to receive the recommended care or any other care that I may need at any time, regardless of my ability to pay for such care. Auditory hallucinationspresent. Delusional thinking present. Slurred speech present. ADDITIONAL INFORMATION Acute Pain, Uncertai (more content not included)...[facility]04-03-2024 Emergency department Note* ED Bed Hold Note - Latia Sheehan RN - 11/24/2023 5:29 PM EDT Bed: FT-1A Expected date: Expected time: Means of arrival: Comments: [id number] Miscellaneous Notes* ED Bed Hold Note - Latia Sheehan RN - 11/24/2023 5:29 PM EDT Bed: FT-1A Expected date: Expected time: Means of arrival: Comments: when clean documented in this encounterEn[facility] [id number] History of Present illness Narrative* JUNIOR Mendiola - 11/24/2023 3:31 PM EDT Patient Name: Cecilia Senior Initial Evaluation: 11/24/2023 : 1990 Patient's PCP: Iram Quiles MD PIT Physician Pam Mills PA-C, JUNIOR PIT Evaluation Note Cecilia Senior is a 33 y.o. female with history of cyclical vomiting syndrome, endometriosis, pancreatitis, presents for evaluation of nausea vomiting x 3 days, patient states that her dad gave her an edible with coconut in it and since that time she has been having abdominal cramps and vomiting. Shedenies any diarrhea, denies any hematemesis. States that she is allergic to coconut. She denies anydifficulty breathing, difficulty swallowing, lip swelling or itching or rash Brief Exam General- Nad, non toxic Resp- non labored Abd -soft, not tender Brief Plan Will provide patient Pepcid and Benadryl, will obtain laboratory testing and she will be further evaluated. Vitals are as noted below: Vitals: 11/24/23 1513 BP: (!) 156/90 Pulse: Resp: Temp: SpO2: Pit process initiated and next physician will perform detailed history and physical exam. * JUNIOR Mendiola - 11/24/2023 3:08 PM EDT Images from the original note were not included. ED Note HPI CC: Chief Complaint Patient presents with Vomiting Nausea Nausea and vomiting for the past 2 days. States her dad gave her an editable that had coconut in it, she is allergic to coconut. States she has been vomiting since. Pt has been seen at multiple hospitals multiple times for this. She uses cannibis daily HPI: Cecilia Senior is a 33 y.o. female past medical history of anxiety, fibromyalgia, headache, cyclical vomiting, presents for evaluation of nausea and vomiting. Patient reports that her dad gave heran edible 2 days ago that had coconut in it. She states that she is allergic to coconut. She deniesany significant abdominal pain, or states that she has been having persistent nausea and vomiting, bilious. No diarrhea, having normal bowel movements. She denies any fevers, chills, hematuria, dysuria, concern for . She denies any throat swelling, difficulty breathing, rash. No chest pain, shortness of breath. No additional concerns this time. Review of External Record(s) -: Yes: Patient was seen in the emergency department twice earlier this month for similar symptoms, she did receive Haldol with improvement of symptoms Past History: Past Medical History: Diagnosis Date Carpal tunnel syndrome Depression Endometriosis Female infertility Fibroid Fibromyalgia Headache Migraine Obesity Other specified hemorrhagic conditions (CMS/HCC) Ovarian cyst Pancreatitis PID (pelvic inflammatory disease) Polycystic ovary syndrome Recurrent loss, antepartum condition or complication Urinary tract infection Past Surgical History: Procedure Laterality Date CHOLECYSTECTOMY LAPAROSCOPY DIAGNOSTIC / BIOPSY / ASPIRATION / LYSIS [facility]- states told endometriosis Social History Tobacco Use Smoking status: Every Day Packs/day: 1.00 Years: 15.00 Additional pack years: 0.00 Total pack years: 15.00 Types: Cigarettes Smokeless tobacco: Never Vaping Use Vaping Use: Never used Substance Use Topics Alcohol use: Not Currently Comment: once a month Drug use: Yes Frequency: 7.0 times per week Types: Marijuana/Cannabis Comment: every day Family History Problem Relation Name Age of Onset Mental illness Mother travon sen Miscarriages / Stillbirths Mother travon sen Seizures Father brooks senior Cancer Mother's Sister Theresa tye Allergies Allergen Reactions Aspirin Anaphylaxis Tramadol Rash and Swelling Diazepam Fainting Latex Rash Current Outpatient Medications Medication Instructions cephalexin (KEFLEX) 500 mg, oral, 2 times daily levETIRAcetam (KEPPRA) 500 mg, oral, 2 times daily ondansetron ODT (ZOFRAN-ODT) 4 mg, translingual, Every 8 hours PRN potassium chloride (KLOR-CON M20) 20 mEq CR tablet 20 mEq, oral, 2 times daily, Tablet may be swallowed whole (do not crush/chew/suck on) OR broken in half and each half swallowed separately OR dissolved (whole tablet) in ~4 ounces of water (allow ~2 minutes to dissolve, stir well and administer immediately). Physical Exam: Patient Vitals for the past 24 hrs: BP Temp Pulse Resp SpO2 11/24/23 1920 (!) 168/98 -- 71 18 97 % 11/24/23 1845 -- -- 68 -- 94 % 11/24/23 1830 -- -- 66 -- 95 % 11/24/23 1815 -- -- 58 -- 96 % 11/24/23 1800 -- -- 62 -- 98 % 11/24/23 1730 (!) 175/105 -- 59 -- 100 % 11/24/23 1513 (!) 156/90 -- -- -- -- 11/24/23 1512 -- 36.7 C (98 F) 69 20 96 % CONSTITUTIONAL: Obese, no acute distress, nontoxic EYES: No conjunctival injection, no icterus. HENT: External ears normal, external nose normal. RESPIRATORY: Normal chest excursion with respiration, no stridor. CARDIOVASCULAR: No cyanosis NEUROLOGICAL: Awake, alert. PSYCHOLOGICAL: The patient's mood and manner are appropriate. INTEGUMENTARY: Warm and dry. No rash noted. MUSCULOSKETAL: GI: Soft, nontender, no guarding rigidity, negative Knight sign, no focal tenderness. No CVA tenderness. MDM: For evaluation of nausea and vomiting x 3 days. Other etiologies considered though less likely:? Less likely AAA or aortic dissection with no syncope, no pulsatile mass, no hypotension, no ripping/tearing pain, good equal distal pulses without pallor, NV intact distally and young age. ? Less likely Mesenteric ischemia/ischemic colitis with age < 50y, no h/o CAD, no arrhythmia, no bloody diarrhea? Less likely Bowel obstruction as tolerating PO, having BM Less likely Cholecystitis/cholangitis with no sig ruq ttp, normal liver panel, no fever, no jaundice ?Less likely appendicitis with tolerating po, no focal tenderness. Less likely Ovarian torsion/TOA with no sudden onset of acute pain with n/v, no adnexal pain or mass, non toxic appearing, no fever? Less likely Ectopic - b-hcg negative? Less likely diverticulitis with no fever, no significant diarrhea, tolerating po and negative Ct? Less likely kidney stone/pyelo with no cva tenderness, pain is not colicky in nature, Patient did initially receive Zofran without mild improvement of symptoms, still feeling nauseous, did give patient Haldol she does appear to have improvement in the past with this. She is feeling significantly better and is now able to tolerate p.o. Patient's laboratory testings are reassuring, she does have a significant leukocytosis, repeat abdominal exams are benign. She does have some electrolyte abnormalities as a hypokalemia of 2.9. She did receive potassium here, I will also discharge her with this several day course of this. On repeat abdominal exam, her abdomen is soft without peritoneal signs. Patient tolerated PO as well.??I discussed the overall normal results and the negative CT scan. The pt agreed with this plan and will f/u with pcp for abdominal recheck and further management. I discussed the warning signs and symptoms to return to the ED at any time and the pt vocalized understanding and agreed with the planof care. Independent interpretation of EKG, rhythm strip, or radiology study? Yes, EKG: My interpretation issinus bradycardia, ventricular rate is 57, no ST elevation or depression, she does have a prolongedQTc at 500, baseline No orders to display Labs Reviewed BASIC METABOLIC PANEL - Abnormal Result Value Sodium 136 Potassium 2.9 (*) Chloride 100 CO2 25 Anion Gap 11 Glucose 124 (*) BUN 7 (*) Creatinine 0.59 (*) eGFR 121 BUN/Creatinine Ratio 11.9 (*) Calcium 8.8 (*) CBC WITH AUTO DIFFERENTIAL - Abnormal WBC 4.5 (*) RBC 4.65 Hemoglobin 13.1 Hematocrit 39.4 MCV 84.7 MCH 28.2 MCHC 33.2 RDW 15.6 (*) Platelets 267 MPV 10.1 Neutrophils Relative 58.4 Lymphocytes Relative 27.2 Monocytes Relative 14.2 (*) Eosinophils Relative 0.0 Basophils Relative 0.0 Immature Granulocytes Relative 0.2 Neutrophils Absolute 2.60 Lymphocytes Absolute 1.21 Monocytes Absolute 0.63 Eosinophils Absolute 0.00 Basophils Absolute 0.00 Immature Granulocytes Absolute 0.01 HEPATIC FUNCTION PANEL - Abnormal Total Protein 7.2 Albumin 4.0 Total Bilirubin 0.4 Bilirubin, Direct 0.1 Bilirubin, Indirect 0.3 ALT (SGPT) 39 AST (SGOT) 50 (*) Alkaline Phosphatase 64 MAGNESIUM - Abnormal Magnesium 1.7 (*) LIPASE - Normal Lipase 36 HCG, SERUM, QUALITATIVE - Normal hCG Qual Negative CBC AND DIFFERENTIAL Narrative: The following orders were created for panel order CBC and differential. Procedure Abnormality Status --------- ------ CBC auto differential[[id number]] Abnormal Final result Please view results for these tests on the individual orders. Medications diphenhydrAMINE (BENADRYL) injection 25 mg (25 mg intravenous Given 11/24/23 1541) famotidine (PF) (PEPCID) injection 20 mg (20 mg intravenous Given 11/24/23 1541) potassium chloride (KLOR-CON M20) CR tablet 40 mEq (40 mEq oral Given 11/24/23 1731) ondansetron (PF) (ZOFRAN) injection 4 mg (4 mg intravenous Given 11/24/23 1732) haloperidol lactate (HALDOL) injection 2.5 mg (2.5 mg intravenous Given 11/24/23 1757) sodium chloride 0.9 % bolus 1,000 mL (0 mL intravenous Stopped 11/24/23 191) ED Course as of 11/24/232147Nov 24, 2023 1630 Critically low potassium reported by charge nurse. Oral potassium ordered. [CHATA] ED Course User Index [CHATA] Latia Harrison MD Clinical Impressions as of 11/24/232147 Nausea and vomiting, unspecified vomiting type Hypokalemia Resistant hypertension PDMP Reviewed by: James Abdalla DO on 05/10/2022 5:08 AM PROCEDURE: Procedures Attending: Dr. Maldonado IMPRESSION: 1. Nausea and vomiting, unspecified vomiting type 2. Hypokalemia 3. Resistant hypertension Escalation of care including admission/observation considered - : I did consider hospitalization for this patient she had intractable nausea or vomiting Test(s) Considered But Not Performed - : CT abdomen pelvis, she has benign abdominal exam DISPOSITION: Discharged ED Prescriptions Medication Sig Dispense Start Date End Date Auth. Provider potassium chloride (KLOR-CON M20) 20 mEq CR tablet (Status: Discontinued) Take 1 tablet (20 mEq total) by mouth 2 (two) times a day for 5 days. Tablet may be swallowed whole (do not crush/chew/suck on) OR broken in half and each half swallowed separately OR dissolved (whole tablet) in ~4 ounces of water (allow ~2 minutes to dissolve, stir well and administer immediately). 10 each 11/24/2023 11/24/2023 JUNIOR Mendiola ondansetron ODT (ZOFRAN-ODT) 4 mg disintegrating tablet Dissolve 1 tablet (4 mg total) on top of the tongue every 8 (eight) hours if needed for nausea or vomiting for up to 7 days. 20 tablet /05/2024 JUNIOR Mendiola potassium chloride (KLOR-CON M20) 20 mEq CR tablet Take 1 tablet (20 mEq total) by mouth 2 (two) times a day for 5 days. Tablet may be swallowed whole (do not crush/chew/suck on) OR broken in half and each half swallowed separately OR dissolved (whole tablet) in ~4 ounces of water (allow ~2 minutesto dissolve, stir well and administer immediately). 10 each 11/24/2023 11/29/2023 JUNIOR Mendiola PA 11/24/231750 JUNIOR Mendiola 11/24/231750 JUNIOR Mendiola 11/24/232147 documented in this encounterEncompass Health Rehabilitation Hospital Of [id number] History of Present illness Narrative* Jhony Moran RN - 11/22/2023 6:45 AM EDT Attempted to call patient to notify about UA and ATB. Patient did not answer, unable to leave . Jhony Moran RN 11/22/23 0700 * Jhony Moran RN - 11/22/2023 5:46 AM EDT Patient eloped shortley after getting zofran. made aware Jhony Moran RN 11/22/23 0546 * Marce Del Castillo RN - 11/22/2023 5:45 AM EDT Pt witnessed to have eloped again from ED Marce Del Castillo RN 11/22/23 0545 * Atif Lindsay MD - 11/22/2023 5:14 AM EDT Emergency Department Encounter Note Patient Name: Cecilia Senior Initial Evaluation: 11/22/2023 : 1990 Patient's PCP: Iram Quiles MD Emergency Physician: Laura Lindsay MD History of Present Illness The patient is a 33 y.o. female who has a past medical history of fibromyalgia,, depression, BMI greater than 40,, migraines; return to the ER and agreed to have treatment. Please see previous note. Patient having anxiety and agitation also having vomiting. Complains of no other symptoms such as fever or abdominal pain. Review of Systems I personally reviewed all systems and other than those pertinent positives and negatives noted above, found them to be unremarkable. Nursing triage notes were reviewed by me and I agree. Previous History Past Medical History Nursing triage notes/past medical, social, and family history reviewed by me and I agree. Past Medical History: Diagnosis Date Carpal tunnel syndrome Depression Endometriosis Female infertility Fibroid Fibromyalgia Headache Migraine Obesity Other specified hemorrhagic conditions (CMS/HCC) Ovarian cyst Pancreatitis PID (pelvic inflammatory disease) Polycystic ovary syndrome Recurrent loss, antepartum condition or complication Urinary tract infection Past Surgical History Past Surgical History: Procedure Laterality Date CHOLECYSTECTOMY LAPAROSCOPY DIAGNOSTIC / BIOPSY / ASPIRATION / LYSIS [facility]- states told endometriosis Physical Exam Physical Exam Vitals: Visit Vitals BP (!) 176/93 Pulse 84 Temp 36.7 C (98.1 F) Resp 16 Ht 1.753 m (69) SpO2 98% BMI 50.21 kg/m OB Status Having periods Smoking Status Every Day BSA 2.59 m Vital Signs (First & Last Sets of This Visit): CONSTITUTIONAL: Female individual resting in bed. HEAD: Normocephalic, atraumatic. EYES: No conjunctival injection, no icterus. EARS: External ears appear normal. NOSE: Nose appears normal. NECK: Trachea is midline. Neck is supple. RESPIRATORY: Normal chest excursion with respiration, no stridor. CARDIOVASCULAR: Regular rate and rhythm. GASTROINTESTINAL: Abdomen is soft and nondistended. NEUROLOGICAL: Awake, alert and oriented. Neurologically nonfocal. PSYCHOLOGICAL: The patient's mood and manner are anxious but now more appropriate and cooperative. INTEGUMENTARY: Skin is warm and dry. No evidence of rash. MUSCULOSKELETAL: No deformities in all 4 extremities. ED Results: Pulse ox 98% Normal as interpreted by me. The patient's old medical records have been reviewed. I saw and evaluated the patient. I have reviewed the chief complaint, triage note, past medical/surgical, family, and social history. LABS: Labs Reviewed POC , URINE DIAGNOSTIC POCT BASIC METABOLIC PROFILE POCT DRUGS OF ABUSE POCT URINALYSIS MACROSCOPIC IMAGING: No orders to display MEDICATIONS ADMINISTERED: Medications ondansetron ODT (ZOFRAN-ODT) disintegrating tablet 4 mg (4 mg oral Given 11/22/23 0545) MEDICAL DECISION MAKING With nursing present, I explained to the patient that she will be given nausea medication. No IV will be placed at this time. Will check the results of her BMP and urine studies (urine hCG, urinalysis, urine drug screen). Anticipate discharge home if no other significant abnormal findings on lab work. Prescription for Zofran ODT and Phenergan rectal suppositories will be given. Patient verbalized agreement with this plan. She also verbalized admitting to use of cannabis with last use 1 week ago. Hermelindo Moran RN witnessed the conversation. About 1 minute later I was informed by nursing that patient eloped from the ER again. Lab results were still pending. ED Pre-Disposition Vitals: Vitals: 11/22/23 0517 BP: (!) 176/93 Pulse: 84 Resp: 16 Temp: 36.7 C (98.1 F) SpO2: 98% Procedures Discharge Medications: ED Prescriptions None IMPRESSION: Elopement Malingering behavior Nausea and vomiting suspicious for cyclic vomiting syndrome Cannabis abuse Anxiety Final diagnoses: [R11.15] Cyclic vomiting syndrome [F12.10] Cannabis abuse [F41.9] Anxiety Atif Lindsay MD 11/22/2328 Atif Lindsay MD 11/22/2330 Atif Lindsay MD 11/22/23 0548 documented in this encounterEncompass Health Rehabilitation Hospital Of [id number] Emergency department Note* ED Bed Hold Note - Marce Del Castillo RN - 11/22/2023 5:21 AM EDT Bed: ED-05 Expected date: 11/22/23 Expected time: Means of arrival: Comments: [facility] [id number] Miscellaneous Notes* ED Bed Hold Note - Marce Del Castillo RN - 11/22/2023 5:21 AM EDT Bed: ED-05 Expected date: 11/22/23 Expected time: Means of arrival: Comments: documented in this encounterEncompass Health Rehabilitation Hospital Of [id number] History of Present illness Narrative* Jhony Moran RN - 11/22/2023 5:03 AM EDT Patient requesting to use shower for relief because she states that has been what helps her at hometemporarily. Patient educated on trying medicine to provide longer relief. Patient ambulated out ofroom to nurses station requesting IV be taken out so she can leave. RN asked patient if this is what she would like to do and she did not respond to this RN. Patient ambulated out of ER with no difficulty, AO x 4, respirations easy/unlabored. Jhony Moran RN 11/22/23 0509 * Atif Lindsay MD - 11/22/2023 4:31 AM EDT Emergency Department Encounter Note Patient Name: Cecilia Senior Initial Evaluation: 11/22/2023 : 1990 Patient's PCP: Iram Quiles MD Emergency Physician: Laura Lindsay MD History of Present Illness The patient is a 33 y.o. female who has a past medical history of fibromyalgia, depression, BMI greater than 40, prior ER visits for agitation and anxiety; Walked into the ER stating that she has been vomiting since yesterday. She walked up to the triage just then was witnessed by triage nurse bending over the trash can. Then with slump on the wheelchair stating that she cannot walk and is too weak but then demonstrates ability to walk from the wheelchair to the bed. Patient noted to be anxious and agitated. No other symptoms such as abdominal pain or fever or diarrhea. Patient here in the ER with significant other. Patient continually asking nursing to use the shower. Review of Systems I personally reviewed all systems and other than those pertinent positives and negatives noted above, found them to be unremarkable. Nursing triage notes were reviewed by me and I agree. Previous History Past Medical History Nursing triage notes/past medical, social, and family history reviewed by me and I agree. Past Medical History: Diagnosis Date Carpal tunnel syndrome Depression Endometriosis Female infertility Fibroid Fibromyalgia Headache Migraine Obesity Other specified hemorrhagic conditions (CMS/HCC) Ovarian cyst Pancreatitis PID (pelvic inflammatory disease) Polycystic ovary syndrome Recurrent loss, antepartum condition or complication Urinary tract infection Past Surgical History Past Surgical History: Procedure Laterality Date CHOLECYSTECTOMY LAPAROSCOPY DIAGNOSTIC / BIOPSY / ASPIRATION / LYSIS [facility]- states told endometriosis Physical Exam Physical Exam Vitals: Visit Vitals BP (!) 173/92 Pulse 86 Temp 36.7 C (98 F) Resp 16 Ht 1.651 m (65) Wt 154 kg (340 lb) SpO2 96% BMI 56.58 kg/m OB Status Having periods Smoking Status Every Day BSA 2.48 m Vital Signs (First & Last Sets of This Visit): CONSTITUTIONAL: Female individual standing over the bed bent over with her head down on the mattress. HEAD: Normocephalic, atraumatic. EYES: No conjunctival injection, no icterus. EARS: External ears appear normal. NOSE: Nose appears normal. NECK: Trachea is midline. Neck is supple. RESPIRATORY: Normal chest excursion with respiration, no stridor. Lungs clinical auscultation bilaterally. No rales, rhonchi or wheezes. CARDIOVASCULAR: Regular rate and rhythm. GASTROINTESTINAL: Abdomen is soft, nondistended, obese, and nontender. NEUROLOGICAL: Awake, alert and oriented. Neurologically nonfocal. PSYCHOLOGICAL: The patient's mood and manner are anxious and agitated but conversant. INTEGUMENTARY: Skin is warm and dry. No evidence of rash. MUSCULOSKELETAL: No deformities in all 4 extremities. ED Results: Pulse ox 96% Normal as interpreted by me. The patient's old medical records have been reviewed. I saw and evaluated the patient. I have reviewed the chief complaint, triage note, past medical/surgical, family, and social history. LABS: Labs Reviewed POC , URINE DIAGNOSTIC POCT DRUGS OF ABUSE POCT URINALYSIS MACROSCOPIC POCT BASIC METABOLIC PROFILE IMAGING: No orders to display MEDICATIONS ADMINISTERED: Medications sodium chloride 0.9 % bolus 1,000 mL (has no administration in time range) haloperidol lactate (HALDOL) injection 2.5 mg (has no administration in time range) diphenhydrAMINE (BENADRYL) injection 25 mg (has no administration in time range) MEDICAL DECISION MAKING Patient continually asked to use the shower. I explained to the patient that plan will be to have her nausea controlled first and give her fluids. I ordered for BMP and urine studies as well as IV fluids and IV Haldol and Benadryl as patient appears very anxious. 2 minutes after I ordered everything, patient stood by the door and asked to have the IV taken out and she wanted to leave. IV was removed. Patient then left the ER with significant other. Patient is elopement. ED Pre-Disposition Vitals: Vitals: 11/22/23 0442 BP: (!) 173/92 Pulse: 86 Resp: 16 Temp: 36.7 C (98 F) SpO2: 96% Procedures Discharge Medications: ED Prescriptions None IMPRESSION: Malingering behavior Agitation/anxiety Cannabis abuse Final diagnoses: [F12.10] Cannabis abuse Atif Lindsay MD 11/22/23 0507 Atif Lindsay MD 11/22/23 0532 documented in this encounterEncompass Health Rehabilitation Hospital Of [id number] Hospital Discharge instructions* Discharge Instructions* Rosibel Kim MD - 09/27/2023 4:30 PM EST As we discussed, your QT interval on your EKG is abnormal which limits the medications that we are safely able to give you for your nausea and vomiting. You can use Ativan and Benadryl as needed at home for nausea and vomiting safely. If you change your mind about seeking treatment in our emergencyroom, or change your mind about IV magnesium, we are open 24 hours a day and we will happily see you again. Continue taking the oral magnesium at home. * Attachments The following attachments cannot be sent through Care Everywhere. * Nausea and Vomiting ([place]) documented in this encounterEncompass Health Rehabilitation Hospital Of [id number] History of Present illness Narrative* Rosibel Kim MD - 09/27/2023 3:27 PM EST HPI CC: Chief Complaint Patient presents with Vomiting Pt sts she has been seen yesterday for same symptoms. Was discharged from [facility] and is not any better. Reports vomiting, weakness and fatigue. HPI/ROS: Cecilia Senior is a 33 y.o. female presenting with chief complaint of vomiting, generalized weakness, lightheadedness Patient has been dealing with the above complaints for the last 3 days. Initially was seen at [facility] 3 days ago, seen at [facility] yesterday and then seen here today. She has been having nonstop vomiting with lightheadedness sensation like she is going to pass out and excessive fatigue. She has no abdominal pain but was complaining of diarrhea 2 days ago. Was seen yesterday [facility], was hypomagnesemic, also had a elevated white count but not complaining of any abdominal pain. She was given IV Ativan, she did not want to stay for IV magnesium and ultimately was discharged after she was feeling better with p.o. magnesium She was given Rx for Phenergan and magnesium. These are not helping at home her symptoms have returned so she returns to the ER. Continues to an Dors vomiting lightheadedness dizziness excessive fatigue but no abdominal pain. Discussed with independent historian -: Yes, Spouse Review of External Record -: Yes: I did review ED visit dated yesterday [facility] as well as ED visit at [facility] Past History: Past Medical History: Diagnosis Date Carpal tunnel syndrome Depression Endometriosis Female infertility Fibroid Fibromyalgia Headache Migraine Obesity Other specified hemorrhagic conditions (CMS/HCC) Ovarian cyst Pancreatitis PID (pelvic inflammatory disease) Polycystic ovary syndrome Recurrent loss, antepartum condition or complication Urinary tract infection Past Surgical History: Procedure Laterality Date CHOLECYSTECTOMY LAPAROSCOPY DIAGNOSTIC / BIOPSY / ASPIRATION / LYSIS [facility]- states told endometriosis Social History Tobacco Use Smoking status: Every Day Packs/day: 1.00 Years: 15.00 Additional pack years: 0.00 Total pack years: 15.00 Types: Cigarettes Smokeless tobacco: Never Vaping Use Vaping Use: Never used Substance Use Topics Alcohol use: Not Currently Comment: once a month Drug use: Yes Frequency: 7.0 times per week Types: Marijuana/Cannabis Comment: every day Family History Problem Relation Name Age of Onset Mental illness Mother travon sen Miscarriages / Stillbirths Mother travon sen Seizures Father brooks senior Cancer Mother's Sister Theresa gamble Allergies Allergen Reactions Aspirin Anaphylaxis Tramadol Rash and Swelling Diazepam Fainting Latex Rash Current Outpatient Medications Medication Instructions levETIRAcetam (KEPPRA) 500 mg, oral, 2 times daily magnesium oxide (MAG-OX) 400 mg, oral, Daily promethazine (PHENERGAN) 25 mg, oral, Every 8 hours PRN Physical Exam: Patient Vitals for the past 24 hrs: BP Temp Temp src Pulse Resp SpO2 09/27/23 1531 (!) 144/83 36.6 C (97.9 F) Oral 68 20 98 % CONSTITUTIONAL: Non-toxic appearing EYES: No scleral icterus HENT: External ears normal, external nose normal. RESPIRATORY: Normal chest excursion with respiration, no stridor. CARDIOVASCULAR: No cyanosis NEUROLOGICAL: Awake and alert. PSYCHOLOGICAL: The patient's mood and manner are appropriate. INTEGUMENTARY: Warm and dry. ABDOMINAL: Not obviously distended abdomen completely soft and nontender no rebound no guarding No orders to display Labs Reviewed POCT CBC WITH DIFFERENTIAL - Abnormal Result Value WBC POCT 16.3 (*) RBC POCT 4.53 Hemoglobin POCT 12.9 (*) Hematocrit POCT 39.0 MCV POCT 86.1 MCH POCT 28.5 MCHC POCT 33.1 RDW-CV POCT 16.3 Platelet POCT 386 MPV POCT 10.2 Lymphocyte # POCT 3.5 Lymphocyte % POCT 21.7 (*) MXD # POCT 0.8 MXD % POCT 5.1 Neutrophil # POCT 12.0 (*) Neutrophil % POCT 73.2 POCT BASIC METABOLIC PROFILE - Abnormal Glucose POCT 109 (*) BUN POCT 7 (*) Creatinine POCT 0.4 (*) Sodium POCT 140 Potassium POCT 3.4 (*) Chloride POCT 104 Carbon Dioxide POCT 25 Calcium POCT 9.6 eGFR 135 POCT [id number] SCREENING, MOLECULAR - Normal [id number] Molecular POCT Not Detected Narrative: Molecular testing utilizing isothermal nucleic acid amplification technology. POCT INFLUENZA TYPE A AND B - Normal Influenza A Screen POCT Not Detected Influenza B Screen POCT Not Detected Narrative: Molecular testing utilizing isothermal nucleic acid amplification technology. POCT INFLUENZA TYPE A AND B POCT [id number] SCREENING, MOLECULAR POCT CBC WITH DIFFERENTIAL POCT BASIC METABOLIC PROFILE Medications magnesium sulfate 2 gram/50 mL (4 %) IVPB 2 g (0 g intravenous Stopped 09/27/23 1607) LORazepam (ATIVAN) injection 1 mg (1 mg intravenous Given 09/27/23 1606) diphenhydrAMINE (BENADRYL) injection 25 mg (25 mg intravenous Given 09/27/23 1606) sodium chloride 0.9 % bolus 1,000 mL (0 mL intravenous Stopped 09/27/23 1633) 1. Prolonged Q-T interval on ECG 2. Nausea and vomiting, unspecified vomiting type 3. Lightheadedness MDM/IMPRESSION/DISPOSITION: Cecilia Senior is a 33 y.o. female presenting with vomiting dizziness Differential includes cannabis hyperemesis, influenza, COVID, gastroenteritis, less likely intra-abdominal pathology such as appendicitis or bowel obstruction or pancreatitis or hepatitis given that she has no complaints of abdominal pain and her abdomen is soft and benign and her vital signs are reassuring. There was concern over antiemetic choice at [facility] due to prolonged QTc on her EKG. Her QTc is actually worse today, I manually calculated it at 515 see ED course for detailed EKG interpretation. This limits her antiemetic therapy. Will give IV Ativan IV Benadryl and IV magnesium and IV fluid bolus. Will check basic labs to evaluate for other electrolyte abnormalities. Strongly suspect cannabis hyperemesis, patient has multipledocumented ER visits for the same and uses marijuana/cannabis daily per chart review. EKG shows sinus rhythm, my concern for cardiac dysrhythmia is low given that she has persistent lightheadedness, not intermittent, and is not having syncopal episodes. Though she has a prolonged QTc which could predispose her to cardiac dysrhythmias, she is not in 1 now and is still feeling lightheaded. Will we will monitor her on telemetry. Will reassess after fluid bolus magnesium bolus Ativan Benadryl and basic labs. Chronic Conditions Affecting Care -: Yes: Cannabis hyperemesis syndrome SEE ED COURSE BELOW FOR REAL TIME UPDATES IN THIS PATIENT'S CLINICAL CARE/TESTING RESULTS/DISPOSITION ED Course as of 09/27/23 1705 Mon Sep 27, 2023 1551 ECG 12 lead EKG to my independent interpretation shows sinus rhythm with sinus arrhythmia at a rate of 69 with a normal axis, prolonged QTc interval, no acute ischemic appearing morphologies [ME] 1552 I did manually calculate this patient's QTc which is 515 [ME] 1620 WBC POCT(!): 16.3 Downtrending from yesterday [ME] 1627 Patient declining IV magnesium and wants to seek care elsewhere. I explained that the reason we can give her antiemetics is due to her prolonged QTc and Ativan and Benadryl really her only options are freestanding ER. I did tell her that the most likely reason she has prolonged QTc is hypomagnesemia but she continues to refuse IV magnesium. She wants to seek a second opinion elsewhere which the patient is well within her right to do. She is requesting that we remove her IV. I reassured herthat we are open 24 hours a day and if she changes her mind and wants to come back here she is always welcome. [ME] 1630 I do not feel the need to sign the patient out AGAINST MEDICAL ADVICE I do not see any life-threatening condition here today, her BMP was largely unremarkable she has mild hypokalemia. [ME] ED Course User Index [ME] Rosibel Kim MD Clinical Impressions as of 09/27/23 1705 Nausea and vomiting, unspecified vomiting type Lightheadedness Prolonged Q-T interval on ECG Rosibel Kim MD 09/27/23 1600 Rosibel Kim MD 09/27/23 1706 documented in this encounterEncompass Health Rehabilitation Hospital Of [id number] History of Present illness Narrative* Mani Alba MD - 09/26/2023 6:48 AM EST Chief Complaint Patient presents with Vomiting Arrives to ER with c/o n/v dizziness onset yesterday. History of Present Illness: The patient is a 33 y.o. female who presents with dizziness, vomiting. She states that she initially had some dyspnea, now she feels lightheaded like she could pass out. She has had vomiting, diarrhea, abdominal pain. No fever. She states her pancreatitis but she does not have abdominal pain now. No chest pain. She was evaluated at [facility] but describes a bad experience there so she came here. PAST MEDICAL HISTORY: Patient Active Problem List Diagnosis Obesity, Class III, BMI 40-49.9 (morbid obesity) (CMS/HCC) Hypertension Hypercholesteremia Past Medical History: Diagnosis Date Carpal tunnel syndrome Depression Endometriosis Female infertility Fibroid Fibromyalgia Headache Migraine Obesity Other specified hemorrhagic conditions (CMS/HCC) Ovarian cyst Pancreatitis PID (pelvic inflammatory disease) Polycystic ovary syndrome Recurrent loss, antepartum condition or complication Urinary tract infection Past Surgical History: Procedure Laterality Date CHOLECYSTECTOMY LAPAROSCOPY DIAGNOSTIC / BIOPSY / ASPIRATION / LYSIS [facility]- states told endometriosis Allergies Allergen Reactions Aspirin Anaphylaxis Tramadol Rash and Swelling Diazepam Fainting Latex Rash Current Outpatient Medications Medication Instructions levETIRAcetam (KEPPRA) 500 mg, oral, 2 times daily Family History Problem Relation Name Age of Onset Mental illness Mother travon sen Miscarriages / Stillbirths Mother travon sen Seizures Father brooks senior Cancer Mother's Sister Theresa gamble SOCIAL HISTORY: Social History Tobacco Use Smoking status: Every Day Packs/day: 1.00 Years: 15.00 Additional pack years: 0.00 Total pack years: 15.00 Types: Cigarettes Smokeless tobacco: Never Substance Use Topics Alcohol use: Not Currently Comment: once a month Social History Social History Narrative Not on file REVIEW OF SYSTEMS: As per HPI. All other systems reviewed and negative unless otherwise noted above. PHYSICAL EXAM: ED Triage Vitals [09/26/23 0654] Temp Heart Rate Resp BP 36.5 C (97.7 F) 72 24 (!) 161/87 SpO2 Temp Source Heart Rate Source Patient Position 97 % Oral -- -- BP Location FiO2 (%) -- -- CONSTITUTIONAL: Well appearing, no apparent distress. EYES: No scleral icterus. There is no conjunctival pallor. No nystagmus. HENT: External ears normal. CARDIOVASCULAR: No cyanosis. No peripheral edema. PULMONARY/CHEST: No signs of respiratory distress. ABDOMINAL: Nondistended. Soft, nontender. MUSCULOSKELETAL: No deformities. NEURO: The patient is awake and alert. There are no focal neurologic deficits. No truncal or peripheral ataxia. SKIN: Warm, well perfused. No acute rashes. PSYCH: Normal affect. ED STUDIES: Labs Reviewed - No data to display No orders to display ED COURSE and Medical Decisoin Making: Vitals: 09/26/23 0653 09/26/23 0654 BP: (!) 161/87 Pulse: 72 Resp: 24 Temp: 36.5 C (97.7 F) TempSrc: Oral SpO2: 97% Weight: 152 kg (334 lb) Height: 1.753 m (69) Medications sodium chloride 0.9 % bolus 1,000 mL (has no administration in time range) LORazepam (ATIVAN) injection 1 mg (has no administration in time range) Clinical Impressions as of 09/26/23 0853 Nausea and vomiting, unspecified vomiting type Prolonged Q-T interval on ECG Hypomagnesemia I reviewed external health records, patient is been seen multiple times for nausea and vomiting. I reviewed the note from yesterday at [facility]. Symptoms not concerning for central cause of vertigo. She has lightheadedness more than vertigo at this point. Her EKG on my interpretation reveals sinus rhythm, rate is 69, no evidence of acute ischemia, QTc is 480 so we will avoid QTc prolonging medications for now. Labs ordered. She does not have abdominal pain concerning for hepatobiliary disease, pancreatitis, appendicitis, bowel obstruction. Labs reveal leukocytosis, more so than she has had in the past. She is no abdominal pain now, do not think she has any infectious process going on, she could be dehydrated and have this due to stress. I do not think he needs blood cultures or lactic acid. Otherwise, no JARAD, she has hypomagnesemia. IV magnesium ordered but the patient did not want to stay to get this, she is feeling better after the Ativan. She would like to be discharged. I do not think this is unreasonable. I do not think she has had a posterior circulation stroke, she does not have vertigo or ataxia, considered hospitalization but unlikely be beneficial. Discharged stable condition, prescriptions written for Phenergan and magnesium. Given reasons for return. Mani Alba MD 09/26/23 0711 Mani Alba MD 09/26/23 0854 documented in this encounterEncompass Health Rehabilitation Hospital Of [id number] History of Present illness Narrative* Nasreen Rodriguez RN - 08/05/2023 2:34 AM EST Patient seen walking toward exit of dept with visitor. When asked if she was leaving, patient states yes and continues to walk out of dept, ignoring staff. Dr Lindsay made aware. Nasreen Rodriguez RN 08/05/23 0234 * Atif Lindsay MD - 08/05/2023 12:18 AM EST Emergency Department Encounter Note Patient Name: Cecilia Senior Initial Evaluation: 08/05/2023 : 1990 Patient's PCP: Iram Quiles MD Emergency Physician: Laura Lindsay MD History of Present Illness The patient is a 33 y.o. female who has a past medical history of fibromyalgia, BMI greater than 40, depression, uterine fibroids, migraines, endometriosis; was seen in the ER earlier yesterday for status post fall in the bathtub after getting dizzy, no head trauma or LOC, was caught by friend preventing her from hitting her head but she had already hit the upper back/neck area and right rib against the bathtub. She had lab work and urine studies done and was diagnosed with urinary tract infection. She declined imaging studies and left AGAINST MEDICAL ADVICE. She was given prescriptions for Zofran and Bactrim. Patient back in the ER due to continued pain to the right side of the posterior neck rating down tothe right shoulder as well as pain to the right posterolateral rib region. Patient denies fever, productive cough, current vomiting, anterior chest pain, or shortness of breath. Patient also states that she has developed a rash on both thighs and legs and believes this may be an allergic reaction to the Bactrim. Review of Systems I personally reviewed all systems and other than those pertinent positives and negatives noted above, found them to be unremarkable. Nursing triage notes were reviewed by me and I agree. Previous History Past Medical History Nursing triage notes/past medical, social, and family history reviewed by me and I agree. Past Medical History: Diagnosis Date Carpal tunnel syndrome Depression Endometriosis Female infertility Fibroid Fibromyalgia Headache Migraine Obesity Other specified hemorrhagic conditions (CMS/HCC) Ovarian cyst Pancreatitis PID (pelvic inflammatory disease) Polycystic ovary syndrome Recurrent loss, antepartum condition or complication Urinary tract infection Past Surgical History Past Surgical History: Procedure Laterality Date CHOLECYSTECTOMY LAPAROSCOPY DIAGNOSTIC / BIOPSY / ASPIRATION / LYSIS [facility]- states told endometriosis Physical Exam Physical Exam Vitals: Visit Vitals BP (!) 147/95 (BP Location: Right arm, Patient Position: Sitting) Pulse 98 Temp 36.4 C (97.5 F) (Oral) Resp 20 LMP 08/03/2023 Comment: Currently menstruating SpO2 97% OB Status Unknown Smoking Status Every Day Vital Signs (First & Last Sets of This Visit): CONSTITUTIONAL: Female individual resting in bed. HEAD: Normocephalic, atraumatic. EYES: No conjunctival injection, no icterus. EARS: External ears appear normal. NOSE: Nose appears normal. NECK: Trachea is midline. Neck is supple and nontender to palpation except right trapezius musculartenderness to palpation reproducing chief complaint. No midline cervical tenderness. Right upper parathoracic muscular tenderness to palpation. RESPIRATORY: Normal chest excursion with respiration, no stridor. No rales, rhonchi or wheezes. CARDIOVASCULAR: Regular rate and rhythm. No edema. GASTROINTESTINAL: Abdomen is soft and nontender. NEUROLOGICAL: Awake, alert and oriented. Neurologically nonfocal. PSYCHOLOGICAL: The patient's mood and manner are anxious but appropriate. INTEGUMENTARY: Skin is warm and dry. Faint sporadic erythematous, nonvesicular, not purpuric, not urticarial rash bilateral thighs. MUSCULOSKELETAL: No deformities in all 4 extremities. No midline thoracolumbar tenderness. Right upper parathoracic muscular tenderness to palpation. Right posterolateral rib tenderness to palpation without crepitus. Normal ROM bilateral shoulders. Patient is ambulatory and normal ROM bilateral hips. ED Results: Pulse ox 97% Normal as interpreted by me. The patient's old medical records have been reviewed. I saw and evaluated the patient. I have reviewed the chief complaint, triage note, past medical/surgical, family, and social history. LABS: Labs Reviewed - No data to display IMAGING: XR Shoulder 2+ Views Right Final Result No acute abnormality. -------- FINAL REPORT -------- Dictated By: Eric Eden Dictated Date: 08/05/2023 02:27 Assigned Physician: Eric Eedn Reviewed and Electronically Signed By: Eric Eden Signed Date: 08/05/2023 02:29 Workstation ID: [id number] Transcribed By: Self Edit Transcribed Date: 08/05/2023 02:27 CT Cervical Spine wo Contrast Final Result No acute fracture. -------- FINAL REPORT -------- Dictated By: Eric Eden Dictated Date: 08/05/2023 02:51 Assigned Physician: Eric Eden Reviewed and Electronically Signed By: Eric Eden Signed Date: 08/05/2023 02:56 Workstation ID: [id number] Transcribed By: Self Edit Transcribed Date: 08/05/2023 02:51 CT Thoracic Spine wo Contrast Final Result No acute fracture. -------- FINAL REPORT -------- Dictated By: Eric Eden Dictated Date: 08/05/2023 03:00 Assigned Physician: Eric Eden Reviewed and Electronically Signed By: Eric Eden Signed Date: 08/05/2023 03:06 Workstation ID: [id number] Transcribed By: Self Edit Transcribed Date: 08/05/2023 03:00 CT Chest wo Contrast Final Result 1. No acute abnormality. 2. No displaced rib fracture. -------- FINAL REPORT -------- Dictated By: Eric Eden Dictated Date: 08/05/2023 02:57 Assigned Physician: Eric Eden Reviewed and Electronically Signed By: Eric Eden Signed Date: 08/05/2023 03:00 Workstation ID: [id number] Transcribed By: Self Edit Transcribed Date: 08/05/2023 02:57 MEDICATIONS ADMINISTERED: Medications diphenhydrAMINE (BENADRYL) injection 25 mg (25 mg intramuscular Given 08/05/23220) ketorolac (TORADOL) injection 15 mg (15 mg intramuscular Given 08/05/23 0221) MEDICAL DECISION MAKING Differential Diagnosis Considered - : Yes, the differential associated with the patient's presentation includes rash, right rib contusion, upper back contusion, right parathoracic muscular strain, right trapezius strain, C-spine injury, T- spine injury, right rib fracture Escalation of care including admission/observation considered - : Transfer for admission consider to significant abnormalities on workup Discussed with independent historian -: Yes, Friend Review of External Record -: Yes: Outpatient record reports and inpatient records Chronic Conditions Affecting Care -: Yes: BMI greater than 40, fibromyalgia Benadryl and Toradol ordered. Rash does not appear to be a drug rash. No signs of any significant allergic reaction. Patient requested for antibiotics to treat UTI to be changed. I will prescribe Keflex and instructed patient to hold off taking Bactrim at this time. Right shoulder x-ray noted. Right shoulder x-ray is normal. I was notified by nursing that patient then abruptly left the ER without notifying anybody. Patienteloped. CTs were pending when this occurred. CT C-spine later noted and unremarkable. CT T-spine later noted and unremarkable. CT chest without contrast later noted and unremarkable. ED Pre-Disposition Vitals: Vitals: 08/05/23 0024 BP: (!) 147/95 Pulse: 98 Resp: 20 Temp: 36.4 C (97.5 F) SpO2: 97% Procedures Discharge Medications: ED Prescriptions None IMPRESSION: Elopement Rash Right-sided neck pain/trapezius strain Right rib pain Final diagnoses: [R21] Rash [R07.81] Rib pain on right side [S46.811A] Strain of right trapezius muscle, initial encounter Atif Lindsay MD 08/05/23 0201 Atif Lindsay MD 08/05/23 0210 Atif Lindsay MD 08/05/23 0238 Atif Lindsay MD 08/05/23 0318 documented in this encounterEncompass Health Rehabilitation Hospital Of [id number] Emergency department Note* ED Bed Hold Note - Nasreen Rodriguez RN - 08/05/2023 1:01 AM EST Bed: ED-12 Expected date: Expected time: Means of arrival: Walk Comments: [facility] [id number] Miscellaneous Notes* ED Bed Hold Note - Nasreen Rodriguez RN - 08/05/2023 1:01 AM EST Bed: ED-12 Expected date: Expected time: Means of arrival: Walk Comments: documented in this encounterEncompass Health Rehabilitation Hospital Of [id number] History of Present illness Narrative* Belle Martinez MD - 08/04/2023 7:46 AM EST HPI Chief Complaint Patient presents with Vomiting Pt having nausea and vomiting for three days with dizziness. Pt denies abd pain but having right lower rib pain. Patient presents after fall. Patient has had recent nausea and vomiting that she thought was related to her menstrual cycle. This has been over the past few days. Then has become dizzy which she describes as lightheadedness. She was lightheaded in the bathroom yesterday afternoon when she fell. Patient's head was caught by friend, but she hit her upper back area and her right ribs. She has had pain there since then. Patient says prior to this she had no pain at all. Denies chest pain or shortness of breath. Says that she has some right lateral rib area pain occasionally with breathing. No fever, chills, or sweats. No cough. No abdominal pain. Denies changes in urine or stool. No head traumaor LOC. Patient History Past Medical History: Diagnosis Date Carpal tunnel syndrome Depression Endometriosis Female infertility Fibroid Fibromyalgia Headache Migraine Obesity Other specified hemorrhagic conditions (CMS/HCC) Ovarian cyst Pancreatitis PID (pelvic inflammatory disease) Polycystic ovary syndrome Recurrent loss, antepartum condition or complication Urinary tract infection Past Surgical History: Procedure Laterality Date CHOLECYSTECTOMY LAPAROSCOPY DIAGNOSTIC / BIOPSY / ASPIRATION / LYSIS [facility]- states told endometriosis Family History Problem Relation Name Age of Onset Mental illness Mother travon sen Miscarriages / Stillbirths Mother travon sen Seizures Father brooks senior Cancer Mother's Sister Theresa long Social History Tobacco Use Smoking status: Every Day Packs/day: 1.00 Years: 15.00 Additional pack years: 0.00 Total pack years: 15.00 Types: Cigarettes Smokeless tobacco: Never Vaping Use Vaping Use: Never used Substance Use Topics Alcohol use: Not Currently Comment: once a month Drug use: Yes Frequency: 7.0 times per week Types: Marijuana/Cannabis Comment: every day Review of Systems Review of Systems All other systems reviewed and are negative. Physical Exam ED Triage Vitals [08/04/23 0750] Temp Heart Rate Resp BP 36.9 C (98.5 F) 82 20 (!) 154/103 SpO2 Temp src Heart Rate Source Patient Position 98 % -- -- -- BP Location FiO2 (%) -- -- Physical Exam Constitutional: General: She is not in acute distress. Appearance: Normal appearance. She is not ill-appearing. HENT: Head: Normocephalic and atraumatic. Right Ear: External ear normal. Left Ear: External ear normal. Nose: Nose normal. Mouth/Throat: Mouth: Mucous membranes are moist. Eyes: General: Right eye: No discharge. Left eye: No discharge. Conjunctiva/sclera: Conjunctivae normal. Cardiovascular: Rate and Rhythm: Normal rate. Pulses: Normal pulses. Heart sounds: Normal heart sounds. Pulmonary: Effort: Pulmonary effort is normal. Breath sounds: Normal breath sounds. Abdominal: General: Abdomen is flat. Bowel sounds are normal. Palpations: Abdomen is soft. Tenderness: There is no abdominal tenderness. There is no guarding or rebound. Musculoskeletal: General: Normal range of motion. Cervical back: Normal range of motion and neck supple. Comments: There is some midline upper and lower thoracic tenderness and paraspinal right-sided thoracic area tenderness. No midline tenderness otherwise. No back skin findings. Pelvis stable. There is right lateral rib significant tenderness. No skin changes. Skin: General: Skin is warm and dry. Capillary Refill: Capillary refill takes less than 2 seconds. Neurological: General: No focal deficit present. Mental Status: She is alert. Mental status is at baseline. Psychiatric: Mood and Affect: Mood normal. ED Course & MDM ED Course as of 08/04/23 0835 WedAug 04, 2023 08 Patient presents after fall. Patient has had recent nausea and vomiting that she thought was related to her menstrual cycle. Then has become dizzy which she describes as lightheadedness. She waslightheaded in the bathroom yesterday afternoon when she fell. Patient's head was caught by friend,but she hit her upper back area and her right ribs. She has had pain there since then. Patient saysprior to this she had no pain at all. Will get laboratory evaluation. Will get imaging for trauma. Patient's ribs are significantly tender to palpation. Think likely musculoskeletal. Think unlikely ACS. No chest pain. Think unlikely PE. No tachycardia, tachypnea, or hypoxia. [JA] 0820 12-Lead ECG Normal sinus rhythm. [JA] [address] Patient [address] nursing to place IV and give antiemetic. During administration, she said that she wanted to leave immediately. She would not wait for laboratory results. She would not wait for imaging. I told patient without an evaluation, she could have significant pathology including traumatic injury that could be dangerous without evaluation. Patient says that she understands the risk, but would still prefer to sign out against medical advice. I have provided antiemetic and antibiotic for urinary tract infection. Looking through the EMR, patient has been to multiple emergency departments in the past day for similar and has not gotten an evaluation. I am uncertain of the patient's goal. When the nurse was about to take out her IV I asked what she came here for, she says that she isnot feeling well and is tired and wants to go home even though she was only here briefly. She is calm and I feel capable of making her own medical decisions. She has signed out against medical advice. [JA] ED Course User Index [JA] Belle Martinez MD Clinical Impressions as of 08/04/23 0835 Nausea and vomiting, unspecified vomiting type Fall, initial encounter Acute UTI Rib pain Acute back pain, unspecified back location, unspecified back pain laterality Procedures ED STUDIES: Labs Reviewed POCT CBC WITH DIFFERENTIAL - Abnormal Result Value WBC POCT 18.1 (*) RBC POCT 5.09 Hemoglobin POCT 14.5 Hematocrit POCT 43.0 MCV POCT 84.5 MCH POCT 28.5 MCHC POCT 33.7 RDW-CV POCT 16.0 Platelet POCT 467 (*) MPV POCT 10.2 Lymphocyte # POCT 3.5 Lymphocyte % POCT 19.6 (*) MXD # POCT 1.3 MXD % POCT 7.0 Neutrophil # POCT 13.3 (*) Neutrophil % POCT 73.4 POCT URINALYSIS MACROSCOPIC - Abnormal Color Urine POCT Red (*) Clarity Urine POCT Turbid (*) Glucose Urine POCT Negative Ketones Urine POCT 40. (*) Leukocyte Esterase POCT Negative Nitrite POCT Positive (*) pH Urine POCT 5.5 Blood Urine POCT Large (*) Protein Urine POCT >=300 (*) Specific [place] Urine POCT 1.030 Bilirubin Urine POCT Large (*) Urobilinogen POCT 1.0 POCT BASIC METABOLIC PROFILE - Abnormal Glucose POCT 148 (*) BUN POCT 9 Creatinine POCT 0.7 Sodium POCT 143 Potassium POCT 3.6 Chloride POCT 100 Carbon Dioxide POCT 23 Calcium POCT 10.0 eGFR 112 POCT LIVER PROFILE - Abnormal Albumin POCT 4.5 Total Bilirubin POCT 1.0 ALP POCT 89 ALT POCT 10 Total Protein POCT 8 (*) Amylase POCT 47.0 GGT POCT 36 AST POCT 25 POC , URINE DIAGNOSTIC - Normal HCG, Ur POC Negative POC hCG Int QC Pass? Yes EXPIRATION DATE POC [id number] LOT NUMBER POC [id number] POCT BASIC METABOLIC PROFILE POCT CBC WITH DIFFERENTIAL POCT URINALYSIS MACROSCOPIC POCT LIVER PROFILE No orders to display ED COURSE: Vitals: 08/04/23 0750 08/04/23 0805 08/04/23807 BP: (!) 154/103 Pulse: 82 87 Resp: 20 Temp: 36.9 C (98.5 F) SpO2: 98% 97% Weight: 159 kg (350 lb 1.1 oz) Height: 1.753 m (69.02) Medications sodium chloride 0.9 % bolus 1,000 mL (1,000 mL intravenous Not Given 08/04/23823) ondansetron (PF) (ZOFRAN) injection 4 mg (4 mg intravenous Given 08/04/23818) Cecilia Senior is a 33 y.o. female who was seen and evaluated today for the following diagnoses DIAGNOSTIC IMPRESSION: 1. Nausea and vomiting, unspecified vomiting type 2. Fall, initial encounter 3. Acute UTI 4. Rib pain 5. Acute back pain, unspecified back location, unspecified back pain laterality All questions were answered. DISPOSITION: [facility] Prescriptions Medication Sig Dispense Start Date End Date Auth. Provider sulfamethoxazole-trimethoprim (Bactrim DS) 800-160 mg per tablet Take 1 tablet by mouth every 12 (twelve) hours for 7 days. 14 each 08/04/2023 08/11/2023 Belle Martinez MD ondansetron ODT (ZOFRAN-ODT) 4 mg disintegrating tablet Dissolve 1 tablet (4 mg total) on top of the tongue every 8 (eight) hours if needed for nausea or vomiting for up to 7 days. 20 tablet 08/04/2023 08/11/2023 MD Belle Fleming MD 08/04/23 0810 Belle Martinez MD 08/04/23 0811 Belle Martinez MD 08/04/23 0835 documented in this encounterEncompass Health Rehabilitation Hospital Of [id number] History of Present illness Narrative* Joanne Dyer RN - 08/03/2023 3:55 PM EST Patient guest seen by this RN grabbing a patient belonging's bag and attempting to go through drawers in cart. Patient guest asked what he was doing and replied she (Cecilia) just left. No orders placed for this RN at this time. Patient was in and out of room multiple times encountered by staff. documented in this encounterEncompass Health Rehabilitation Hospital Of [id number] Emergency department Note* ED Bed Hold Note - Shaina Lora EMT-P - 08/03/2023 3:20 PM EST Bed: ED-18 Expected date: Expected time: Means of arrival: Comments: [address]12-2023 Miscellaneous Notes* ED Bed Hold Note - Shaina Lora EMT-P - 08/03/2023 3:20 PM EST Bed: ED-18 Expected date: Expected time: Means of arrival: Comments: documented in this encounterEncompass Health Rehabilitation Hospital Of [id number] History of Present illness Narrative* Joanne Foy - 06/30/2023 11:43 AM EST *Left voicemail for patient to call and reschedule 07/[address] Rios having surgery. There is openings on 07/12 in the afternoon to schedule.* documented in this encounterEncompass Health Rehabilitation Hospital Of [id number] History of Present illness Narrative* Jan Bhagat MD - 06/17/2023 1:30 PM EDT [facility] Outpatient Visit - New Patient Exam Subjective: Subjective Cecilia Senior is a 33 y.o. female presenting as a new patient to establish [facility] care Chief Complaint Patient presents with Referral Pt here for referral from PCP- states having abdominal pain has been ongoing for a long time, irregular menses, sometimes goes 6 months without a cycle, also when has cycle has large clots, has endometriosis Previously followed with [facility]. Last exam 2017. Has known endometriosis. Has lots of pain. Has pain even when she is not menstruating. Passes large clots. Previously used ibuprofen. Has never been on any hormonal contraception. No fam hx breast ovarian endometrial cancer. Irregular menses. Patient's last menstrual period was 05/29/2023. Sometimes will go 3-4 months. Sometimes bleeds for 3-4 months straight. Gynecologic History Patient's last menstrual period was 05/29/2023. Social History Substance and Sexual Activity Sexual Activity Yes Partners: Male control/protection: None Pap history: Last Pap: Unknown History abnormal paps: None Gardasil: Never received Last Mammogram: [facility], no concerns Last Dexa Scan:[facility] Colon Cancer Screening: Recommended age 43 Obstetrical History OB History Para Term AB Living 12 0 12 0 SAB IAB Ectopic Molar Multiple Live Births 12 0 # Outcome Date GA Lbr Spencer/2nd Weight Sex Delivery Anes PTL Lv 12 SAB 11 SAB 10 SAB 9 SAB 8 SAB 7 SAB 6 SAB 5 SAB 4 SAB 3 SAB 2 SAB 1 SAB Obstetric Comments History of GC and Trich s/p treatment Denies history of abnormal pap last done 11/2017 NIL Patient's medications, allergies, past medical, surgical, social and family histories were reviewedand updated as appropriate. Objective Objective: BP 128/70 (BP Location: Left arm, BP Position: Sitting) Ht 5' 9 (1.753 m) Wt (!) 333 lb (151 kg) BMI 49.18 kg/m Smoking Status Every Day Body mass index is 49.18 kg/m . General: alert, well appearing, and in no distress. Head: Normocephalic, without obvious abnormality, lacking significant dentition Oropharynx: Normal findings Neck: thyroid is normal in size without nodules or tenderness. Back: negative Lungs: deferred Heart: deferred Breast: Breast exam: breasts appear normal, no suspicious masses, no skin or nipple changes or axillary nodes. Abdomen: Obese, soft, nontender, nondistended, no masses or organomegaly Pelvic Exam: Defer until next visit at time of IUD placement Extremities: peripheral pulses normal, no pedal edema, no clubbing or cyanosis Pulse: Not performed Skin: Skin color, texture, turgor normal. No rashes, or lesions Neurologic: alert, oriented, normal speech, no focal findings or movement disorder noted Lymph Nodes: Cervical, supraclavicular, and axillary nodes normal Assessment: Cecilia was seen today for Referral (Pt here for referral from PCP- states having abdominal pain has been ongoing for a long time, irregular menses, sometimes goes 6 months without a cycle, also when has cycle has large clots, has endometriosis ) Impression: 1. Oligomenorrhea, unspecified type 2. Screen for STD (sexually transmitted disease) 3. Endometriosis 4. Chronic pelvic pain in female Plan: Cecilia was seen today for referral. Diagnoses and all orders for this visit: Oligomenorrhea, unspecified type - LH; Future - FSH; Future - PROLACTIN; Future - TESTOSTERONE TOTAL AND FREE, INCLUDES SHBG; Future - HEMOGLOBIN A1C; Future Screen for STD (sexually transmitted disease) - HEPATITIS B SURFACE ANTIGEN; Future - HEPATITIS C ANTIBODY; Future - SYPHILIS AB W/REFLEX RPR; Future - HIV 1 AND 2 ANTIBODIES/P24 ANTIGEN; Future Endometriosis Chronic pelvic pain in female -We discussed in length the potential causes of oligomenorrhea and secondary amenorrhea in a woman of reproductive age including but not limited to psychosocial stressors in the home and at work, weight gain, weight loss, obesity, excessive exercise, endocrinopathies, and anovulatory causes -To rule out overt endocrinopathy/PCOS we will plan to evaluate LH, FSH, Prolactin, Testosterone free and total/DHEA sulfate, TSH, A1C -She has had a recent CT of the abdomen and pelvis 05/18/23 which showed unremarkable pelvic organs Routine Gynecologic Care - Paps: to be collected at next visit for IUD placement - Mammograms: [facility] - Menstrual cycles: irregular as above - Contraception: IUD placement next week - STI testing Blood work today, Swabs next week with IUD placement - Immunizations: No gardasil will consider at next visit, No covid, No flu Requested Prescriptions No prescriptions requested or ordered in this encounter Follow Up: Return in about 1 week (around 06/24/2023) for IUD placement . Jan Bhagat MD documented in this encounterProMedica [facility]ostoria [facility]10-19-2023 History of Present illness Narrative* Joanne Oliva MD - 06/10/2023 1:00 PM EDT Chief Complaint Chief Complaint Patient presents with ED Follow-up Was seen for stomach pain and nausea. Also began to have seizures, stated has trauma to back of thehead from childhood. Medication Refill Would nausea meds and seizure meds. Pt stated thinks dosage is too high on seizure meds due to sides effects she is experiencing. Subjective and History of Present Illness Cecilia is a 33 y.o. female with a PMHx of hyperemesis cannabis syndrome, fibromyalgia, abnormal uterine bleeding, endometriosis, and depression. Patient presents for ED follow up and establish care. ED follow up: Seen 05/31/23 for abdominal pain at [facility] Seen multiple times over the past month or two for the same issue. Workup thus far has been negative including several CT scans with no clear etiology. Diagnosed with hyperemesis 2/2 cannabis use. Has been using zofran for nausea; tried capsaicin cream they gave but did not like the burning sensation. Abdominal pain: Continues to have abdominal pain. Constant, sharp, epigastric abdominal pain at a 8-9/10 that worsens with vomiting. Nausea/vomiting about 3-4 times a week. Tends to happen more with meat. Has found ibuprofen and hot showers to help the pain but the pain will return in an hour. Daily marijuana has brought her pain down to a 3-4/10. Has tried muscle relaxer without improvement. Denies bitter/sour taste in mouth, denies burning pain. History of seizure: Patient reports she was diagnosed with seizures and started on Keppra when she was 15. During visit to [facility] on 05/19, she reported being out of her Keppra and was restarted on 500mg daily at that time. Since then, she says her dose is incorrect and she has been having side effects including increased anger. Desire for : Patient reports long history of irregular periods. Was put on depo shot for awhile during teen years but did not like side effects. She has had multiple pregnancies only up to 5weeks. Has history of endometriosis, ovarian cyst. Patient is actively trying to get currently and worries about her ability to conceive as well as her climbing age. Tobacco use: Patient is currently smoking 1/2 a pack, down from 1 ppd. Actively trying to quit. Hasnever tried a medication or patch to try to quit smoking. Would like to be off tobacco by the beginning of next year. Will cut in half every month or so. Has trouble remembering to take a pill; wouldlike to try nicotine gum. Health maintenance: - agreeable to flu vaccine - needs COVID series - due for pap smear - advised patient of need for dental appointment Review Of Systems; Past Medical, Surgical, Social History and Home Medications Smoking status/ counseling yes Sexual activity: 1 male partner; no protection; is trying to get right now Sleep: Endorses insomnia; says she lays awake at night for hours; endorses about 5 hours from 5am-10am. Tobacco: Currently smoking 1/2 pack - down from 1 ppd. Says since she got sick they have not tastedthe same. Smoking since 13 years old. Would like to quit Alcohol: none Drugs: Currently uses marijuana daily; no hx of IVDU COVID: no history of vaccine Suicide screening: no thoughts of harming herself or others Objective Findings Vitals: BP (!) 158/92 (BP Location: Left arm, BP Position: Sitting) Pulse 104 Temp 97.5 F (36.4C) (Temporal) Resp (!) 97 Ht 1.753 m (5' 9) Wt (!) 154.3 kg (340 lb 3.2 oz) BMI 50.24 kg/m Smoking Status Every Day Physical Exam Vitals reviewed. Constitutional: Appearance: Normal appearance. She is obese. HENT: Head: Normocephalic and atraumatic. Right Ear: Tympanic membrane, ear canal and external ear normal. There is no impacted cerumen. Left Ear: Tympanic membrane, ear canal and external ear normal. There is no impacted cerumen. Nose: Nose normal. Mouth/Throat: Mouth: Mucous membranes are moist. Pharynx: Oropharynx is clear. Comments: Poor dental hygiene; multiple missing teeth Eyes: Conjunctiva/sclera: Conjunctivae normal. Cardiovascular: Rate and Rhythm: Normal rate and regular rhythm. Heart sounds: Normal heart sounds. Pulmonary: Effort: Pulmonary effort is normal. Breath sounds: Normal breath sounds. Abdominal: General: Abdomen is flat. There is no distension. Palpations: Abdomen is soft. There is no mass. Tenderness: There is abdominal tenderness (epigastric). There is no guarding. Skin: General: Skin is warm and dry. Neurological: General: No focal deficit present. Mental Status: She is alert. Psychiatric: Mood and Affect: Mood normal. Behavior: Behavior normal. Recent Labs/Imaging Lab Results Component Value Date HGBA1C 5.5 11/18/2017 HDL 40 11/19/2020 LDLCALC 109 (H) 11/19/2020 Lab Results Component Value Date CREATSERUM 0.57 12/04/2020 HGB 12.0 11/19/2020 Assessment and Plan ICD-10-CM 1. Epigastric pain R10.13 AMB REFERRAL TO GASTROENTEROLOGY Ondansetron 4 MG Tab Dispersible tablet TSH W/FT4 REFLEX TSH W/FT4 REFLEX 2. Endometriosis N80.9 AMB REFERRAL TO OB-[facility] 3. Gastroesophageal reflux disease, unspecified whether esophagitis present K21.9 H. PYLORI UREA BREATH TEST omeprazole [address] capsule Sucralfate 1 GM/10ML oral suspension H. PYLORI UREA BREATH TEST 4. Tobacco use Z72.0 Nicotine 4 MG Gum gum 5. History of seizure Z87.898 AMB REFERRAL TO NEUROLOGY 6. Flu vaccine need Z23 Influenza quad vaccine 0.5 ML Suspension Prefilled Syringe FLU VACCINE SINGLE DOSE QUADRIVALENT Cecilia was seen today for ed follow-up and medication refill. Diagnoses and all orders for this visit: Epigastric pain - AMB REFERRAL TO GASTROENTEROLOGY - Ondansetron 4 MG Tab Dispersible tablet; Take 1 tablet by mouth every 8 hours as needed for Nausea / Vomiting. - TSH W/FT4 REFLEX; Future - TSH W/FT4 REFLEX Endometriosis - AMB REFERRAL TO OB-[facility] Gastroesophageal reflux disease, unspecified whether esophagitis present - H. PYLORI UREA BREATH TEST; Future - omeprazole [address] capsule; Take 1 capsule by mouth daily. - Sucralfate 1 GM/10ML oral suspension; Take 10 mL by mouth before meals & at bedtime. - started on omeprazole today; will add orders if H. Pylori test is positive Tobacco use - Nicotine 4 MG Gum gum; Take 1 Each by mouth as needed. History of seizure - AMB REFERRAL TO NEUROLOGY Flu vaccine need - Influenza quad vaccine 0.5 ML Suspension Prefilled Syringe; Inject 0.5 mL intramuscularly Once (In Clinic) for 1 dose. - FLU VACCINE SINGLE DOSE QUADRIVALENT Health Maintenance: Follow up: Return in about 4 weeks (around 07/08/2023) for GI sx. Joanne Oliva MD Family & Community Medicine, PGY-1 [facility] * Obinna Bryant MD, MPH - 06/10/2023 1:00 PM EDT I have personally interviewed and examined this patient at the time of the visit and agree with theassessment and plan as detailed in Dr. Oliva note. GI referral - test for h.pylori. trial of PPi. Discussed the importance of avoiding foods that makeit worse (tomato-based items, citrus-based items (lemon, [place], oranges), alcohol, coffee, caffeine,chocolate, carbonated beverages.) oily/greasy/fried food, sitting up at least 30 min after eating and staying well hydrated. avoids any medication like ibuprofen/motrin, naproxen/naproxyn, aleve, excedrin, meloxicam, advils, Flor aspirin. Discussed importance of refraining from marijuana use Neurology referral - on keppra for hx of seizures, which was recently started (unable to find documentation of seizures and work up for it. States she was on keppra as a teenager for seizures and then it was stopped when she was an adult. Restarted last month after having a seizure by the ED). She may need an e-consult Smoking cessation * Shanna Oliva - 06/10/2023 1:00 PM EDT Blood draw done on pt left arm. Name and confirmed. Pt tolerated well as indicated by no pain, swelling or excessive bleeding at the draw site.1 mint tube drawn. h pylori test completed documented in this encounterProMedica [facility]10-19-2023 Instructions* Patient Instructions* Obinna Bryant MD, MPH - 06/10/2023 1:00 PM EDT Neurology- [phone] Gastroenterology- [phone] Several referrals have been made after this appointment; please ensure the appointments have been made and you go to see these specialists. OBGYN at the care clinic here Neurology to manage your Keppra Gastroenterology to talk about your abdominal pain and n/v Start taking omeprazole daily to help with reflux symptoms Start taking nicotine gum to help with your cravings Your nausea medication has been refilled You will check your thyroid levels checked today Follow up in about 4 weeks In the meantime, you can work on smoking less (tobacco and marijuana), as well as improving your diet to improve your abdominal pain Discussed the importance of avoiding foods that make it worse (tomato-based items, citrus-based items (lemon, [place], oranges), alcohol, coffee, caffeine, chocolate, carbonated beverages.) oily/greasy/fried food, sitting up at least 30 min after eating and staying well hydrated. avoids any medicationlike ibuprofen/motrin, naproxen/naproxyn, aleve, excedrin, meloxicam, advils, Flor aspirin. documented in this encounterOSU [facility]10-[facility] History of Present illness Narrative* Karolina Echavarria RN - 05/31/2023 1:52 AM EDT Pt noncooperative with medication administration, repeatedly stated she was having a panic attack. Pt redirectable at this time but declining ordered medication. Pt verbalized that she wanted to leave, attempted to take her IV out. Pt then allowed this RN to remove the IV. The pt reiterated she wanted to leave, declined to speak to provider regarding risk/benefit of leaving the ED. Pt ambulated out accompanied by significant other. Pt left the ED without further incident. Karolina Echavarria RN 05/31/23 0158 * Ciera James RN - 05/31/2023 12:56 AM EDT Pt arrives with multiple complaints. States that she was just d/c'd from last week. Admitted forabdominal pain. Reports hx of seizures and has been having increased activity. Takes Keppra. RR arelabored, pt appears extremely anxious. Skin warm and dry. NAD noted/ * Lalo Reynoso MD - 05/31/2023 12:51 AM EDT HPI Chief Complaint Patient presents with Abdominal Pain Seizures Pt is a 33yo F who presents with abdominal pain and seizures. Hx of Seizure do for which she takes Keppra. She has not been seen in the ED on numerous occasions over the last 2 to 3 weeks for the same symptoms. Was initially diagnosed with acute pancreatitis last month hospitalized on the medicine clinic service here at [facility] with a lipase greater than 300, her symptoms improved her lipase improved during her stay, she left before being formally discharged at that time. Since then she has been in and out of the hospital on multiple occasions at multiple hospitals, most recently was seen at [facility] just yesterday for the same symptoms. She had a full panel of laboratory studies that were completely unremarkable. She has had 7 CT abdomen/pelvis studies done over the last several years that have all been completely unremarkable. Most recently had a CT abdomen/pelvis on 05/18/2023that showed no acute findings. She has been diagnosed with cannabis hyperemesis syndrome on multiple occasions, reportedly has not smoked or used marijuana since 05/17/2023 HOWEVER there is a strong scent of marijuana when I interviewed and examined the patient in room 15 this evening. She has Zofran at home that that has only been intermittently helpful. Also history of seizure disorder but has had intermittent noncompliance with the Keppra as noted on the previous ED visits. She admits that these are the same symptoms she has been seen for on numerous occasions over the last month. [place] Coma Scale Score: 15 Patient History Past Medical History: Diagnosis Date Carpal tunnel syndrome Depression Endometriosis Female infertility Fibroid Fibromyalgia Headache Migraine Obesity Other specified hemorrhagic conditions (CMS/HCC) Ovarian cyst Pancreatitis PID (pelvic inflammatory disease) Polycystic ovary syndrome Recurrent loss, antepartum condition or complication Urinary tract infection Past Surgical History: Procedure Laterality Date CHOLECYSTECTOMY LAPAROSCOPY DIAGNOSTIC / BIOPSY / ASPIRATION / LYSIS [facility]- states told endometriosis Family History Problem Relation Name Age of Onset Mental illness Mother travon sen Miscarriages / Stillbirths Mother travon sen Seizures Father brooks senior Cancer Mother's Sister Theresa gamble Social History Tobacco Use Smoking status: Every Day Packs/day: 1.00 Years: 15.00 Additional pack years: 0.00 Total pack years: 15.00 Types: Cigarettes Smokeless tobacco: Never Vaping Use Vaping Use: Never used Substance Use Topics Alcohol use: Not Currently Comment: once a month Drug use: Yes Frequency: 7.0 times per week Types: Marijuana/Cannabis Comment: every day Review of Systems Review of Systems All other systems reviewed and are negative. Physical Exam ED Triage Vitals [05/31/23 0055] Temp Heart Rate Resp BP 36.8 C (98.2 F) 70 24 (!) 162/91 SpO2 Temp src Heart Rate Source Patient Position 100 % -- -- -- BP Location FiO2 (%) -- -- Physical Exam Vitals and nursing note reviewed. Constitutional: General: She is not in acute distress. Appearance: Normal appearance. She is not ill-appearing, toxic-appearing or diaphoretic. Comments: Tearful, visibly uncomfortable, urinated on herself HENT: Head: Normocephalic and atraumatic. Right Ear: External ear normal. Left Ear: External ear normal. Nose: Nose normal. Eyes: Conjunctiva/sclera: Conjunctivae normal. Cardiovascular: Rate and Rhythm: Normal rate. Pulses: Normal pulses. Pulmonary: Effort: Pulmonary effort is normal. No respiratory distress. Breath sounds: No stridor. Abdominal: General: Abdomen is flat. There is no distension. Tenderness: There is generalized abdominal tenderness (Diffusely tender to palpation with even verylight palpation of the abdomen. Inconsistent exam). Musculoskeletal: General: No deformity. Normal range of motion. Cervical back: Normal range of motion. Skin: General: Skin is warm and dry. Neurological: General: No focal deficit present. Mental Status: She is alert. Mental status is at baseline. Psychiatric: Mood and Affect: Mood normal. Behavior: Behavior normal. Thought Content: Thought content normal. Judgment: Judgment normal. ED Course & MDM Clinical Impressions as of 05/31/23 0150 Cannabis hyperemesis syndrome concurrent with and due to cannabis abuse ([facility] Medical Decision Making 33-year-old female history of chronic abdominal pain nausea vomiting and recently diagnosed on multiple occasions with cyclic vomiting/cannabis hyperemesis syndrome NOW presents with recurrent abdominal pain nausea and vomiting. Also states that she has had seizures recently, she is supposed to be taking Keppra however she has been intermittently noncompliant as documented during her multiple recent ED visits. Again this is not a new problem she has had this for quite some time was seen at [facility] just yesterday for the same symptoms treated symptomatically had a full panel of laboratory studies that were basically unremarkable diagnosed with cyclic vomiting/cannabis hyperemesis syndrome and discharged home. Now returns with the same symptoms. I reviewed the last 7 CT scans she has had in our [facility] they were all completely unremarkable for any acute pathology Her laboratory studies have been complete unremarkable except for an isolated elevated lipase done 05/17/2023. Her lipase yesterday at [facility] Was normal her LFTs yesterday at [facility] Were normal Here today CBC shows no significant acute findings compared to previous. BMP shows no JARAD or metabolic derangements. Lipase normal I do not believe that she requires CT imaging at this time as she has already had multiple CTs done for the same problem, I highly suspect cannabis hyperemesis syndromethus will be treated with 1 L normal saline bolus IV Pepcid and IV droperidol. She states that she has not used marijuana since 05/17 HOWEVER there is a strong scent of marijuana in the room during my interview and examination. She is hemodynamically stable. This is acute exacerbation of a chronic problem. ADDENDUM: Shortly after I dictated this note after my initial interview and examination and significant chart biopsy, the patient eloped by ambulating out of the department without warning. Currentlyshe told staff she did not like the medications I had ordered-droperidol Pepcid and IV fluid. Impression: Recurrent nausea and vomiting-suspect cannabis hyperemesis syndrome ELOPED prior to any treatment Procedures Lalo Reynoso MD 05/31/23 0114 Lalo Reynoso MD 05/31/23 0138 Lalo Reynoso MD 05/31/23 0151 documented in this encounterEncompass Health Rehabilitation Hospital Of HarmarvilleGdiprt57-86-8043 Emergency department Note* ED Bed Hold Note - Elza Aguilar RN - 05/31/2023 1:25 AM EDT Bed: ED-15 Expected date: Expected time: Means of arrival: Comments: [facility] Harm[facility]villeQmhnfi22-68-2928 Miscellaneous Notes* ED Bed Hold Note - Elza Aguilar RN - 05/31/2023 1:25 AM EDT Bed: ED-15 Expected date: Expected time: Means of arrival: Abbie: documented in this encounterEncompass Health Rehabilitation Hospital Of HarmarvilleEwzazp63-06-9692 Emergency department Note* ED Bed Hold Note - Elza Aguilar RN - 05/19/2023 6:52 PM EDT Bed: ED-11 Expected date: Expected time: Means of arrival: Comments: Brandon- a doc [address]27-2023 Miscellaneous Notes* ED Bed Hold Note - Elza Aguilar RN - 05/19/2023 6:52 PM EDT Bed: ED-11 Expected date: Expected time: Means of arrival: Comments: 12- a doc documented in this encounterEncompass Health Rehabilitation Hospital Of HarmarvilleJlfftj58-01-5576 History of Present illness Narrative* Manoj Lopez MD - 05/19/2023 6:51 PM EDT Chief Complaint Patient presents with Seizures Pt states she was discharge today for pancreatitis and given dilaudid. Pt states dilaudid makes herseizures worse and she has not had her seizure medication in approx a month. History of Present Illness: Cecilia Senior is a 33 y.o. female who presents via EMS due to a seizure.She states she has been off her Keppra since moving to the area. She reports having two seizures today. She reports a headache. She denies any current nausea, vomiting, abdominal pain, fever, cough or other complaint. She denies traumatic injury but reports a headache. She denies tongue injury. Shereports urinary incontinence. PAST MEDICAL HISTORY: Patient Active Problem List Diagnosis Obesity, Class III, BMI 40-49.9 (morbid obesity) (CMS/HCC) Hypertension Hypercholesteremia Past Medical History: Diagnosis Date Carpal tunnel syndrome Depression Endometriosis Female infertility Fibroid Fibromyalgia Headache Migraine Obesity Other specified hemorrhagic conditions (CMS/HCC) Ovarian cyst Pancreatitis PID (pelvic inflammatory disease) Polycystic ovary syndrome Recurrent loss, antepartum condition or complication Urinary tract infection Past Surgical History: Procedure Laterality Date CHOLECYSTECTOMY LAPAROSCOPY DIAGNOSTIC / BIOPSY / ASPIRATION / LYSIS [facility]- states told endometriosis Allergies Allergen Reactions Aspirin Anaphylaxis Tramadol Rash and Swelling Diazepam Fainting Latex Rash @EDHOMEMEDS@ Family History Problem Relation Name Age of Onset Mental illness Mother travon sen Miscarriages / Stillbirths Mother travon sen Seizures Father brooks senior Cancer Mother's Sister Theresa tye SOCIAL HISTORY: Social History Tobacco Use Smoking status: Every Day Packs/day: 1.00 Years: 15.00 Additional pack years: 0.00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 on 04/23/2022 8:21 AM. 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 States has not stopped bleeding since she was seen here in early February. She had u/s scheduled but her insurance provided ride did not show. She began feeling weak and dizzy particularly at work- was sent home once- so went to the ER last week. Past Medical History: Diagnosis Date Carpal tunnel syndrome Depression Endometriosis Female infertility Fibroid Fibromyalgia Headache Migraine Obesity Other specified hemorrhagic conditions ([facility]/HCC) Ovarian cyst PID (pelvic inflammatory disease) Polycystic ovary syndrome Recurrent loss, antepartum condition or complication Urinary tract infection Past Surgical History: Procedure Laterality Date CHOLECYSTECTOMY LAPAROSCOPY DIAGNOSTIC / BIOPSY / ASPIRATION / LYSIS [facility]- states told endometriosis ROS: See HPI for pertinent positives and negatives. Objective: Visit Vitals BP 131/89 Pulse 76 Physical Exam Constitutional: Appearance: Normal appearance. HENT: Head: Normocephalic and atraumatic. Pulmonary: Effort: Pulmonary effort is normal. Neurological: General: No focal deficit present. Mental Status: She is alert. Skin: General: Skin is warm and dry. Psychiatric: Mood and Affect: Mood normal. Behavior: Behavior normal. Lab Results Component Value Date WBC 8.9 04/16/2022 HGB 10.2 (L) 04/16/2022 HCT 31.3 (L) 04/16/2022 MCV 81.6 04/16/2022 PLT 342 04/16/2022 Reviewed ER visit note from 04/16/22 Cecilia was seen today for gynecologic exam. Diagnoses and all orders for this visit: Excessive bleeding in premenopausal period (Primary) - medroxyPROGESTERone (PROVERA) 10 mg tablet; Take 1 tablet (10 mg total) by mouth 1 (one) time each day. Provera to treat current bleeding. Pt rescheduled her u/s while she was in the exam room today, transportation as well. Will complete labs ordered in February as well. 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 May need EMB depending on us Anemia, unspecified type - ferrous sulfate 325 mg (65 mg elemental iron) tablet; Take 1 tablet (325 mg total) by mouth 1 (one) time each day with breakfast. Possibly due to menstrual blood loss. No follow-ups on file. documented in this encounterEncompass Health Rehabilitation Hospital Of [id number] Note* ED Bed Hold Note - Linda Moreno RN - 04/16/2022 11:06 PM EDT Bed: ED-11 Expected date: Expected time: Means of arrival: Comments: King bryan Delacruz [place] [id number] Miscellaneous Notes* ED Bed Hold Note - Linda Moreno RN - 04/16/2022 11:06 PM EDT Bed: ED-11 Expected date: Expected time: Means of arrival: Comments: King bryan Delacruz documented [place] encounterNatal[place] [id number] History of Present illness Narrative* Phillip Mejia DO - 04/16/2022 9:42 PM EDT HPI Chief Complaint Patient presents with Abdominal Pain C/o lower abd pain and vaginal bleeding for a month. States bleeding had been heavy with clots. Denies any urinary sx. Some nausea, no vomiting. Vaginal Bleeding HISTORY OF PRESENT ILLNESS: 32-year-old female with a history of irregular menstrual cycles, fibromyalgia, endometriosis, migraines, obesity, ovarian cyst, prior PID, who comes in today for vaginal bleeding. Patient said that she has been having heavy vaginal bleeding for the last month and a half.I do see from record review that she saw Dr. Rios at the beginning of February with [employer] regardingthis vaginal bleeding. Dr. Rios had ordered several test for the patient to undergo and was going to discuss starting her on hormonal therapy at follow-up visit. Patient said that she never followed up to get the test done and did not follow-up in the office. She says for the last 1 to 2 weeks she has been having room spinning sensation and fatigue. She has not passed out. She denies any dysuria or urinary frequency. She endorses nausea. She says that she has vomiting whenever she eats greasy food at her job at [employer]. She can keep down Posta and things like water. She has had some lower abdominal discomfort. She denies vaginal discharge. She denies fevers or chills. She has been taken Tylenol for symptoms. REVIEW OF SYSTEMS: I personally reviewed all systems and other than those pertinent positives and negatives noted above, found them to be unremarkable. PAST MEDICAL AND FAMILY HISTORY: I have reviewed the chief complaint, triage, past medical/surgical, and family history SOCIAL HISTORY: Smoker Physical Exam: CONSTITUTIONAL: Well-appearing and in no acute distress. HEENT: head atraumatic. Oropharnyx clear and moist. Bilateral TMs are clear. No cervical lymphadenopathy. Neck is supple. EYES: Pupils equal round and reactive to light RESPIRATORY: No signs of respiratory distress. Lungs are clear to auscultation bilaterally. No wheezes, rales,or rhonchi noted. CARDIOVASCULAR: Regular rate and rhythm. Radial pulses 2+ and equal bilaterally GASTROINTESTINAL: Abdomen soft, non-distended, mildly tender across lower abdomen, no guarding or rebound. Bowel sounds present NEUROLOGICAL: Awake, alert and oriented. 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 Equal upper extremity flexion/extension strength. Equal plantar strength. Sensation intact and symmetrical bilateral upper and lower extremities. PSYCHOLOGICAL: The patient's mood and manner are appropriate. INTEGUMENTARY: No rash noted on exposed skin MUSCULOSKELETAL: No lower extremity edema. No CVA tenderness MEDICAL DECISION MAKING: IMPRESSION: 1. Vaginal bleeding 2. 3. Lilia Coma Scale Score: 15 Patient History Past Medical History: Diagnosis Date Carpal tunnel syndrome Depression Endometriosis Female infertility Fibroid Fibromyalgia Headache Migraine Obesity Other specified hemorrhagic conditions (CMS/HCC) Ovarian cyst PID (pelvic inflammatory disease) Polycystic ovary syndrome Recurrent loss, antepartum condition or complication Urinary tract infection Past Surgical History: Procedure Laterality Date CHOLECYSTECTOMY LAPAROSCOPY DIAGNOSTIC / BIOPSY / ASPIRATION / LYSIS [facility]- states told endometriosis Family History Problem Relation Name Age of Onset Mental illness Mother travon sen Miscarriages / Stillbirths Mother travon sen Seizures Father brooks senior Cancer Mother's Sister Theresa gamble Social History Tobacco Use Smoking status: Current Every Day Smoker Packs/day: 1.00 Years: 15.00 Pack years: 15.00 Types: Cigarettes Smokeless tobacco: Never Used Vaping Use Vaping Use: Never used Substance Use Topics Alcohol use: Not Currently Comment: once a month Drug use: Yes Frequency: 7.0 times per week Types: Marijuana/Cannabis Comment: every day Review of Systems Review of Systems Physical Exam ED Triage Vitals [04/16/22 2144] Temp Heart Rate Resp BP 36.7 C (98.1 F) 92 16 (!) 147/87 SpO2 Temp src Heart Rate Source Patient Position 98 % -- -- -- BP Location FiO2 (%) -- -- Physical Exam ED Course & MDM ED Course as of 04/16/22 2350 Patricia Apr 16, 2022 2347 Patient's labs today show no evidence of and she has no evidence of UTI. BMP shows no acute findings. She has no leukocytosis. Hemoglobin is 10.2. I did see hemoglobin from October 2020 that was 12. Patient will be given Pepcid, Motrin, meclizine, and Zofran here. I advised that she needs to follow- up with her [employer] regarding the vaginal bleeding and to finish the work-up so she canbe treated appropriately. I will prescribe her some meclizine, Zofran, naproxen( which she has tolerated in the past), and Pepcid. 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 Here for period problems. Periods have always been abnormal. At 14, started Depo for BC. Used for year and a half. Began skipping periods after stopped using it. Longest without a period was 3 months. Then it lasts up to 1-2 weeks. Periods very heavy with clots and pain. Had seen obgyn at [facility]. Last saw about 2 years ago. W/u for recurrent SAB (did not stay beyond 5 weeks), Some ectopic pregnancies (but treated with oral medication?? Never surgical), endometriosis, cyst on ovaries. Was started on on a medication that lightened period- possibly Lysteda. Thishelped a lot. Since not using it, periods are heavy again. Has never had a EMB; has had u/s and L/S. Last annual exam: 2 years ago History of abnormal pap: no History of STD:yes- trich 4-5 years ago. PID in the past- constantly- dx in ER. No hospitalization for this. Past Medical History: Diagnosis Date Carpal tunnel syndrome Depression Endometriosis Female infertility Fibroid Fibromyalgia Headache Migraine Obesity Other specified hemorrhagic conditions (CMS/HCC) Ovarian cyst PID (pelvic inflammatory disease) Polycystic ovary syndrome Recurrent loss, antepartum condition or complication Urinary tract infection Past Surgical History: Procedure Laterality Date CHOLECYSTECTOMY LAPAROSCOPY DIAGNOSTIC / BIOPSY / ASPIRATION / LYSIS [facility]- states told endometriosis Social History Tobacco Use Smoking status: Current Every Day Smoker Packs/day: 1.00 Years: 15.00 Pack years: 15.00 Types: Cigarettes Smokeless tobacco: Never Used Vaping Use Vaping Use: Never used Substance Use Topics Alcohol use: Not Currently Comment: once a month Drug use: Yes Frequency: 7.0 times per week Types: Marijuana/Cannabis Comment: every day OB History 18 Para Term AB 18 Living 0 SAB 13 IAB Ectopic 5 Multiple Live Births Review of systems: Pertinent items are noted in HPI. Answers for HPI/ROS submitted by the patient on 02/27/2022 Chronicity: recurrent Onset: in the past 7 days Onset quality: gradual Frequency: constantly Episode duration: 6 Hours Progression since onset: gradually worsening Pain location: generalized abdominal region Pain - numeric: 9/10 Pain quality: tearing Radiates to: epigastric region, back, pelvis anorexia: No arthralgias: No belching: No constipation: No diarrhea: No dysuria: No fever: No flatus: No frequency: Yes headaches: Yes hematochezia: No hematuria: No melena: No myalgias: No nausea: Yes weight loss: No vomiting: No Aggravated by: certain positions, movement Relieved by: recumbency Diagnostic workup: surgery, ultrasound PHYSICAL EXAM Visit Vitals BP 105/76 Pulse 79 Ht 1.753 m (69) Wt (!) 156 kg (343 lb) LMP 02/23/2022 No BMI 50.65 kg/m OB Status Having periods Smoking Status Current Every Day Smoker BSA 2.6 m General Appearance/psych: awake, alert, oriented, in no acute distress, well developed, well nourished, and in no acute distress Skin: there are no suspicious lesions or rashes of concern Head/Face: normocephalic, atraumatic Neck: supple, no mass, non-tender; thyroid is non-tender, no mass, no thyromegaly Lungs: Breathing Pattern: regular, no distress Heart: well perfused, no cyanosis Abdomen: Soft, non-tender, non-distended. No masses palpable. Extremities: Extremities warm to touch, pink, without edema. Neurologic: gait normal, cranial nerves grossly intact Gynecologic exam: External genitalia: grossly normal, without masses or lesions. Vagina: normal appearing physiologic discharge, no atrophy, blood present (pt on period) Cervix: no discharge, no cervical motion tenderness; PAP was not obtained. Uterus: normal size, mobile, non tender. Adnexa: non-tender, no masses noted. See HPI for pertinent positives and negatives. Cecilia was seen today for menstrual problem. Diagnoses and all orders for this visit: Irregular menstrual cycle (Primary) - US Pelvis Transvaginal Non OB; Future - Thyroid stimulating hormone with reflex to free T4 with reflex to total T3; Future - Prolactin; Future - Follicle stimulating hormone; Future - Estradiol; Future - Dehydroepiandrosterone Sulfate; Future - Hemoglobin A1c; Future - Testosterone free, female or pediatric; Future Consider cyclic provera or daily hormonal BC- can discuss further next visit Excessive bleeding in premenopausal period - US Pelvis Transvaginal Non OB; Future - CBC and differential; Future Pt would consider restarting Lysteda should that be best plan. Reviewed last note from Dr Elder at [facility]: - 09/23/2020 noted indicated last u/s 09/14/20 showed possible fibroid but stable since January 10, 2018. Trial provera w/d then was to consider further treatment (hormonal bc)- labs ordered were normal- testosterone, prl, tsh Obesity, morbid (CMS/HCC) RF for endometrial hyperplasia Consider sampling after u/s reviewed. Has not been done in past. 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 documented in this encounterEncompass Health Rehabilitation Hospital Of [id number] Hospital Discharge instructions* Instructions* Mirela Morel PA - 12/05/2021 See your family doctor to recheck this area and ensure that it resolves and does not worsen. If youdo worsen, come back to the ER. * Attachments The following attachments cannot be sent through Care Everywhere. * Lymphadenitis ([place]) * Lymph Nodes: Swollen ([place]) documented in [place] encounterJoseph [place] [id number] History of Present illness Narrative* JUNIOR Patel - 12/05/2021 1:53 PM EDT Images from the original note were not included. Chief Complaint Patient presents with Facial Swelling pt sts she noticed swelling to right side of face the other day, reports swelling has worsened. it started as a lump, states pain is now into right ear and face HISTORY OF PRESENT ILLNESS: Cecilia Senior is a 31 y.o. female with no significant past medical history who presents for evaluation of a tender lump in her preauricular area that started 2 days ago. She denies any specific injuryto the area, any dental pain, fever, chills, sweats, recent eye infection, scalp infection, ear pain, or any other complaint. She states that when she opens her mouth this area seems to pop out more. She denies any erythema or drainage from the area. She took ibuprofen without much relief. She denies any other recent illness, nausea, vomiting, difficulty breathing or swallowing. She has not noticed any other painful lesions or nodes. PAST MEDICAL HISTORY: There is no problem list on file for this patient. Past Medical History: Diagnosis Date Carpal tunnel syndrome Depression Endometriosis Fibromyalgia Headache Obesity Past Surgical History: Procedure Laterality Date CHOLECYSTECTOMY EXPLORATORY LAPAROTOMY Allergies Allergen Reactions Aspirin Anaphylaxis Tramadol Rash and Swelling Diazepam Fainting Latex Rash Home Medications amoxicillin (AMOXIL) 875 mg tablet Take 1 tablet (875 mg total) by mouth every 12 (twelve) hours for 10 days. No family history on file. SOCIAL HISTORY: Social History Tobacco Use Smoking status: Current Every Day Smoker Packs/day: 0.25 Smokeless tobacco: Never Used Substance Use Topics Alcohol use: Not Currently Comment: once a month Social History Social History Narrative Not on file REVIEW OF SYSTEMS: Otherwise as per HPI. All other systems reviewed and negative unless otherwise noted above. PHYSICAL EXAM: ED Triage Vitals Temp Heart Rate Resp BP 12/05/21 1358 12/05/21 1358 12/05/21 1358 12/05/21 1400 36.6 C (97.8 F) 85 20 (!) 151/83 SpO2 Temp Source Heart Rate Source Patient Position 12/05/21 1358 12/05/21 1358 -- -- 98 % Oral BP Location FiO2 (%) -- -- CONSTITUTIONAL: Well-appearing and well-nourished. EYES: No conjunctival injection. No icterus. HENT: No scalp lesions. External ears normal, external nose normal. Pinna, tragus normal, no mastoid tenderness. TM appears normal and pearly, bony landmarks and light reflexes are normal. There is atender, round, mobile lesion noted in the preauricular area, no skin changes, erythema, warmth, swelling. No parotid gland tenderness or swelling in the submandibular or sublingual spaces. No obviousarea of dental infection, the upper teeth are all extracted. No drooling or trismus, uvula is midline. Neck supple. RESPIRATORY: Normal chest excursion with respiration. Speaks in complete sentences without difficulty. CARDIOVASCULAR: No cyanosis. GASTROINTESTINAL: Abdomen non-distended. NEUROLOGICAL: Awake, alert and oriented. PSYCHOLOGICAL: The patient's mood and manner are appropriate. Grooming and personal hygiene are appropriate. INTEGUMENTARY: Warm and dry. No rash noted. MUSCULOSKELETAL: There are no deformities noted. ED STUDIES: Labs Reviewed - No data to display No orders to display No results found. No results found for this or any previous visit (from the past 4464 hour(s)). ED COURSE: Vitals: 12/05/21 1358 12/05/21 1400 12/05/21 1419 BP: (!) 151/83 Pulse: 85 Resp: 20 Temp: 36.6 C (97.8 F) TempSrc: Oral SpO2: 98% Weight: (!) 155 kg (340 lb 12.8 oz) (!) 154 kg (340 lb) Height: 1.753 m (69) Medications - No data to display Clinical Impressions as of 12/05/21 1428 Preauricular lymphadenitis DIAGNOSTIC IMPRESSION: 1. Preauricular lymphadenitis DISPOSITION: Discharge ED Prescriptions Medication Sig Dispense Start Date End Date Auth. Provider amoxicillin (AMOXIL) 875 mg tablet Take 1 tablet (875 mg total) by mouth every 12 (twelve) hours for 10 days. 20 each 12/05/2021 12/15/2021 JUNIOR Patel [facility] Patient presents for evaluation of swelling in the preauricular area that she noticed 2 days ago. Her vitals are stable, is afebrile, nontoxic, she is well- appearing. She does have a tender, round, mobile lesion in the preauricular space, I suspect this is a reactive lymphadenitis. She denies any recent eye infection, there is no sign of scalp infection or ear infection. I do discussed with my attending, we will start her on amoxicillin, recommended close PCP follow-up return if worsen. There is no evidence of parotiditis, dental infection, facial cellulitis or abscess. Supervising Physician: Dr. Ascencion alexander Procedures JUNIOR Patel 12/05/21 1428 documented in this encounterEncompass Health Rehabilitation Hospital Of [id number] Physician Hospital Discharge summaryEMERMAGN[facility] DE[facility]MENT DISCHARGE SUMMARY PATIENT NAME:CECILIA SENIOR MRN: ([facility])-[id number] AGE: 31 Years SEX: Female PHONE:[phone] DOS: 04/13/2021 01:05:00 : 1990 ATTENDING PHYSICIAN:Narinder JANG , Atif Juarez PCP: Nicky JANG, Rachel Shoemaker CHIEF COMPLAINT: Bilateral leg/ feet swelling Allergies aspirin (Swelling of throat) Valium (Syncope) traMADol (Swelling) Latex (Rash) Problems Active Depression Anxiety Endometriosis Migraine DISCHARGE DIAGNOSIS: DISCHARGE INSTRUCTIONS: Work Release 1 Day No restrictions [place] (CUSTOM); [facility] DVT Instructions (Custom); Peripheral Edema; [facility] Clinic List (Custom) ED PHYSICIAN DOCUMENTATION: DISPOSITION: Time of Departure From ER 04/13/2021 03:16 Discharge/Transfer From ER Home 01 MEDICATION LISTS: CURRENT MEDICATION LIST furosemide (Lasix 20 mg oral tablet) 1 Tab(s) By Mouth once a day for 21 Days. Refills: 0. ondansetron (Zofran ODT 4 mg oral tablet, disintegrating) 1 Tab(s) Under the Tongue every 8 hours as needed Nausea and Vomitting for 3 Days. Refills: 0. ondansetron (Zofran ODT 4 mg oral tablet, disintegrating) 1 Tab(s) By Mouth 3 Times a day as neededNausea and Vomitting for 3 Days. Refills: 0. MEDICATIONS GIVEN DURING MEDICAL VISIT acetaminophen 650 mg last dose given on 04/13/2021 at 02:04 Route: By Mouth Maximum 4 Gm Acetaminophen/Day for Adults enoxaparin 160 mg last dose given on 04/13/2021 at 02:04 Route: Subcutaneous Check daily for signs of bleeding and notify physician if bleeding noted. Target Dose: Lovenox 1 mg/kg 04/13/2021 01:50:32*Standardized* furosemide 20 mg last dose given on 04/13/2021 at 03:10 Route: By Mouth NON-MEDICATION PRESCRIPTION ORDERS: Outpatient Ultrasound Ultrasound Exam: US Other Other Ultrasound Exam: Bilateral lower extremity venous duplex scan Diagnosis / Reason: bilateral lower leg pain Complete Within: 1 to 2 days Reporting Priority: Routine Special Instructions (255 Character Limit): Go to [facility] later today (04/13/2021) this morning at 10AM to register. Your appointment time is 10:30am. By appointment only. Please call the number on your discharge instructions to schedule an appointment and bring this prescription with you. LAB RESULTS: LABORATORY TESTS: Abnormal Lab Result(s): Date Order Results 04/13/2021 02:03 BUN L 6 mg/dL 04/13/2021 02:03 Glucose Level H 107 mg/dL 04/13/2021 02:03 Calcium Total L 8.7 mg/dL RADIOLOGY: FOLLOW UP: FOLLOW-UP APPOINTMENTS: Provider: Specialty: Address: Date: Rachel Quiles MD Internal Medicine; Pulmonary Disease [address] [phone] (8) 3 to 4 days Provider: Specialty: Address: Date: [facility] PATIENT NAME:CECILIA SENIOR MRN: [id number] AGE: 30 Years SEX: Female PHONE:[phone] DOS: 12/10/2020 03:47:00 : 1990 ATTENDING PHYSICIAN:Christiano Grace MD PCP: Physician, PCP Unknown CHIEF COMPLAINT: N/V/D and abdominal pain Allergies aspirin (Swelling of throat) Valium (Syncope) traMADol (Swelling) Latex (Rash) Problems Active Depression Anxiety Endometriosis Migraine DISCHARGE DIAGNOSIS: DISCHARGE INSTRUCTIONS: Diarrhea, Adult; Nausea and Vomiting, Adult; Abdominal Pain (Custom) ED PHYSICIAN DOCUMENTATION: History of Present Illness 30-year-old female with history of anxiety, depression, endometriosis, migraine headaches and priorhistory of cholecystectomy who presents for evaluation of sudden onset of nausea, vomiting diarrhea.? Patient states she woke up at 2 AM?with vomiting and diarrhea. ?She denies hematemesis or hematochezia. ?She states she has not been able to keep anything down.? She reports 8 out of 10 epigastric?pain which she describes as aching or cramping.? She denies any undercooked or spoiled foods. ?She states she has been eating a lot of salads lately?after seeing a dietitian to?attempt to lose weight.? Denies any sick contacts. Addendum by Christiano Terry MD on December 10, 2020 05:53:45 EDT Patient reevaluated states she feels much better. ?She is discharged in stable condition 5:50 AM Medical Decision Making I reviewed and agree with the triage notes Patient's pulse oximetry reviewed and interpreted by the attending emergency physician to be normalon room air:?97% Labs reviewed ? I evaluated the patient. ?The patient?presented with nausea, vomiting and diarrhea.? Differential includes?food poisoning, viral gastroenteritis,?electrolyte imbalance, dehydration less likely pancreatitis, small bowel obstruction,?appendicitis. ?Patient does not have any lower abdominal tendernessor findings?suspicious for?appendicitis.? Low suspicion for small bowel obstruction.? IV established by nursing staff. ?Blood obtained for lab work. ?Patient received IV fluids and antiemetics. ?I reviewed the patient's labs. ?Lipase normal. ?Normal LFTs. ?Normal renal function and electrolytes. ?Suspect patient likely has?food poisoning or viral gastroenteritis.? I will give her instructions on nausea, vomiting and diarrhea in addition to abdominal pain and cautioned her to return if she develops any?symptoms concerning for appendicitis. ? Impression: ? 1.? Nausea, vomiting and diarrhea 2.? Abdominal pain ? Computer voice recognition was used in this documentation. There is a possibility of [id number] errors inherit to this technology that may be missed during proofreading. ? ? Addendum by Christiano Terry MD on December 10, 2020 05:53:45 EDT Patient reevaluated states she feels much better. ?She is discharged in stable condition 5:50 AM DISPOSITION: Time of Departure From ER 12/10/2020 06:04 Discharge/Transfer From ER Home 01 MEDICATION LISTS: CURRENT MEDICATION LIST loperamide (Imodium A-D 2 mg oral tablet) Take 2 tablets PO with 1st loose stool. May take 1 tab POfor each additional loose stool. Do not to exceed 8 capsules, or 16 mg, in 24 hours; as needed for loose stools. Refills: 0. ondansetron (Zofran ODT 4 mg oral tablet, disintegrating) 1 Tab(s) Under the Tongue every 8 hours as needed Nausea and Vomitting for 3 Days. Refills: 0. ondansetron (Zofran ODT 4 mg oral tablet, disintegrating) 1 Tab(s) By Mouth 3 Times a day as neededNausea and Vomitting for 3 Days. Refills: 0. MEDICATIONS GIVEN DURING MEDICAL VISIT ondansetron 8 mg last dose given on 12/10/2020 at 04:00 Route: By Mouth prochlorperazine 5 mg last dose given on 12/10/2020 at 05:07 Route: IV Push Administer up to 5 mg/minute (for IV Push) Sodium Chloride 0.9% 1,000 mL last dose given on 12/10/2020 at 05:10 Route: Intravenous Bolus, Infuse over 60 mins. diphenhydramine 25 mg last dose given on 12/10/2020 at 05:17 Route: IV Push Administer at 25 mg/min (for IV Push). LAB RESULTS: LABORATORY TESTS: Abnormal Lab Result(s): Date Order Results 12/10/2020 05:00 WBC Count H 12.4 thou/mcL 12/10/2020 05:00 Neutrophil Absolute H 10.00 thou/mcL 12/10/2020 05:00 Neutrophil H 80.4 % 12/10/2020 05:00 Lymphocyte L 12.4 % 12/10/2020 05:00 Glucose Level H 150 mg/dL 12/10/2020 05:00 Bilirubin Direct A <0.1 mg/dL RADIOLOGY: FOLLOW UP: FOLLOW-UP APPOINTMENTS: Provider: Specialty: Address: Date: [facility] [address] [facility] [phone] (1) 5 days Provider: Specialty: Address: Date: [facility] up with primary care provider [facility] Discharge summaryEMERGENCY DEPARTMENT DISCHARGE SUMMARY PATIENT NAME:CECILIA SENIOR AGE: 30 Years SEX: Female PHONE:[phone] DOS: 08/29/2020 17:43:00 : 1990 ATTENDING PHYSICIAN:Carlos Joiner PCP: Physician, Wood Self-Referral CHIEF COMPLAINT: FLU LIKE SYX Allergies aspirin (Swelling of throat) Valium (Syncope) traMADol (Swelling) Latex (Rash) Problems Active Depression Anxiety Endometriosis Migraine DISCHARGE DIAGNOSIS: DISCHARGE INSTRUCTIONS: Work Release 3 days no restrictions - CO-GC (Custom); Viral illness ([id number]) ED PHYSICIAN DOCUMENTATION: DISPOSITION: Time of Departure From ER 08/29/2020 20:59 Discharge/Transfer From ER Home MEDICATION LISTS: CURRENT MEDICATION LIST ondansetron (Zofran ODT 4 mg oral tablet, disintegrating) 1 Tab(s) By Mouth 3 Times a day as neededNausea and Vomitting for 3 Days. Refills: 0. MEDICATIONS GIVEN DURING MEDICAL VISIT None LAB RESULTS: RADIOLOGY: RADIOLOGY RESULT(S) (Please contact Medical Records office for further information): 08/29/2020 18:00 XR Chest 2 Views EXAMINATION TYPE: XR Chest 2 Views DATE OF EXAM: 08/29/2020 6:13 PMHISTORY: Cough,COMPARISON: 04/11/2020NUMBER OF VIEWS: 2, PA and Lateral.FINDINGS:The heart is normal in size and the mediastinal outlines are normal in appearance. The lungs appear to be free of active infiltrates. The pulmonary vascular markings are within normal limits. The visualized bones and soft tissues are unremarkable. Minorscar left midlung.IMPRESSION:No active chest disease.Rolette thanks you for the opportunity tocare for your patient. Workstation ID: [id number] FOLLOW UP:[facility] NoteID NOW COVID-19_[employer] [facility] County Medical CenterComment on above: Performed By: #### [id number] #### [facility] [address], [place] [id number] Physician Hospital Discharge summaryEMERGENCY DEPARTMENT DISCHARGE SUMMARY PATIENT NAME:CECILIA SENIOR MRN: [id number] AGE: 30 Years SEX: Female PHONE:[phone] DOS: 07/11/2020 06:17:00 : 1990 ATTENDING PHYSICIAN:Kristi Jacobsen MD PCP: Physician, No PCP CHIEF COMPLAINT: right knee pain Allergies aspirin (Swelling of throat) Valium (Syncope) traMADol (Swelling) Latex (Rash) Problems Active Depression Anxiety Endometriosis Migraine DISCHARGE DIAGNOSIS: Knee sprain DISCHARGE INSTRUCTIONS: Surgery for Anterior Cruciate Ligament Tear With Phase I Rehab-SportsMed ED PHYSICIAN DOCUMENTATION: History of Present Illness The patient is a 30-year-old female?presents today for?persistent right knee pain. ?She denies any injury or trauma, she states?she 1st noticed it after waking up in bed one morning and the next day?her pain was significantly worse?and swollen. ?This was about 1 week ago when her pain started.? Shestates she frequently walks up and down the stairs with her?young nephew?and hand and this could have exacerbated her pain.??She describes a locking/popping sensation?in this knee that sometimes gives out on her. ?She was here 1 week ago, had a knee x-ray which?did not show any fracture, she was discharged with naproxen.? Since then she has been taking the naproxen, elevating and icing and using her cane?to walk?though her pain has gotten worse. ?She denies any new injuries. ?Denies any hip or ankle pain.? No fevers.? She has not yet contacted the orthopedic clinic ? Review of Systems All other systems reviewed and are negative except as noted. Nursing triage notes were reviewed by me and I agree except where documented above or below: none ? ? Past Medical History Nursing triage notes/past medical, social, and family history reviewed by me and I agree. ? Physical Exam CONSTITUTIONAL: Well-appearing and well-nourished.? 160 kg EYES: ?No conjunctival injection, no icterus. HENT: ?External ears normal, external nose normal. ?Head atraumatic. RESPIRATORY: ?Normal chest excursion with respiration, no stridor. CARDIOVASCULAR: ?No cyanosis ABDOMEN: Nondistended. NEUROLOGICAL: ?Awake, alert and oriented. PSYCHOLOGICAL: ?The patient's mood and manner are appropriate. ? INTEGUMENTARY: Warm and dry. No rash noted. MUSCULOSKELETAL: Exam of right knee: No obvious deformity, swelling/effusion?though size of patient's knee limits?full exam, no?bruising, no open wound Tenderness elicited posteriorly Able to perform straight leg raise with full extension of knee No laxity with varus/valgus stress or with Mally?s maneuver and posterior drawer? Normal sensation to light touch distal to knee in peroneal and tibial nerve distributions ? ? ? Medical Decision Making Patient presents today with atraumatic?right knee pain. ?Likely an overuse injury, she is also 160 kg, and frequently walks up and down steps which exacerbates her pain. ?Given history of locking/popping sensation I am concerned for?ligamentous injury/partial tear. ?I did not repeat images today given?no new injury since her last x-ray was done?1 week ago and did not show any fractures. ?I have placed her in a knee immobilizer with crutches?and given her?orthopedic?follow-up. ? ? I reviewed OARRS, and patient currently has?0 MED. Patient understands importance of a multi-modal approach to management of their pain. Will provide a limited 3-day supply of narcotics to bridge thepatient's pain until they can follow up with their ortho to discuss other pain management options. Opiate education was provided and patient demonstrates understanding. . ?She will also?take naproxenas an anti-inflammatory, safe use of [place]?was discussed with patient and she demonstrates understanding. ? ? ? Considered other etiologies of pain though less likely:? Quad/patellar tendon rupture as patient able to perform active straight leg raise, no supra/infra patellar gap palpated on exam Tibial plateau fracture as no lateral or medial joint line tenderness, negative xray Septic knee as no palpable effusion, no overlying erythema, nontoxic appearing ? ? Stable for discharge home, WBAT, and orthopedic follow up. Patient demonstrates understanding of return precautions and is comfortable with the plan. ? ? Impression 1.? Right knee pain ? ? (Computer voice recognition was used in this documentation, there is a possibility of sound-alike errors inherent to this technology that may have been missed during proofreading.) DISPOSITION: Time of Departure From ER 07/11/2020 07:09 Discharge/Transfer From ER Home 01 MEDICATION LISTS: CURRENT MEDICATION LIST acetaminophen-HYDROcodone (Day[place] 325 mg-5 mg oral tablet) 1 Tab(s) By Mouth every 6 hours as neededfor pain for 3 Days. *Caution: this medication causes sedation, do not drive or operate heavy machinery or drink alcohol while taking *Caution: this medication is addictive, take only as prescribed. Refill (more content not included)...[facility] DIS[facility] SUMMARY PATIENT NAME:CECILIA SENIOR AGE: 30 Years SEX: Female PHONE:[phone] DOS: 07/03/2020 21:18:00 : 1990 ATTENDING PHYSICIAN:Isabel Lemus III, MD PCP: Physician, No PCP CHIEF COMPLAINT: right knee pain Allergies aspirin (Swelling of throat) Valium (Syncope) traMADol (Swelling) Latex (Rash) Problems Active Depression Anxiety Endometriosis Migraine DISCHARGE DIAGNOSIS: DISCHARGE INSTRUCTIONS: Knee Sprain ED PHYSICIAN DOCUMENTATION: DISPOSITION: Time of Departure From ER 07/03/2020 23:03 Discharge/Transfer From ER Home 01 MEDICATION LISTS: CURRENT MEDICATION LIST naproxen (Naprosyn 250 mg oral tablet) 2 Tab(s) By Mouth Twice a day as needed Pain - Mild for 7 Days. with food. Refills: 0. MEDICATIONS GIVEN DURING MEDICAL VISIT acetaminophen-hydrocodone 1 Tab last dose given on 07/03/2020 at 22:21 Route: By Mouth Maximum 4 Gm Acetaminophen/Day for Adults LAB RESULTS: RADIOLOGY: RADIOLOGY RESULT(S) (Please contact Medical Records office for further information): 07/03/2020 22:07 XR Knee 4+ Views RT EXAMINATION TYPE: XR Knee 4+ Views RT DATE OF EXAM : 07/03/2020 10:14 PMHISTORY: Pain Without Trauma,COMPARISON: NONEFINDINGS: Suprapatellar joint effusion. Negative for definitive fracture or dislocation.IMPRESSION: Suprapatellar joint effusion without fracture or disc patient. MRI could better assess for any internal derangement of the kneeMefransico Andover thanks you for the opportunity to care foryour patient. Workstation ID: [id number] FOLLOW UP: FOLLOW-UP APPOINTMENTS: Provider: Specialty: Address: Date: No PCP Physician Family Practice; Internal Medicine Follow-up as needed Provider: Specialty: Address: Date: [facility] [address], [address] [phone] (7) Follow-up as needed Comment: call for ortho clinic f/u if no better in 7 daysFire[facility] CenterEvaluation note* Diagnosis Preauricular lymphadenitis- Primary documented in this encounter [facility] note* Diagnosis Irregular menstrual cycle- Primary Excessive bleeding in premenopausal period Obesity, morbid ([facility]) Morbid obesity documented in this encounter [facility] note* Diagnosis Vaginal bleeding- Primary Other specified noninflammatory disorder of vagina documented in this encounter [facility] note* Diagnosis Excessive bleeding in premenopausal period- Primary Anemia, unspecified type documented in this encounter [facility] note* Diagnosis Sprain of anterior talofibular ligament of left ankle, initial encounter- Primary documented in this encounter [facility] note* Diagnosis Sprain of right knee, unspecified ligament, initial encounter- Primary documented in this encounter [facility] note* Diagnosis Nausea and vomiting, unspecified vomiting type- Primary documented in this encounter [facility] note* Diagnosis Acute pancreatitis, unspecified complication status, unspecified pancreatitis type- Primary Intractable nausea and vomiting documented in this encounter [facility] note* Diagnosis Seizure ([facility])- Primary Other convulsions documented in this encounter [facility] note* Diagnosis Cannabis hyperemesis syndrome concurrent with and due to cannabis abuse ([facility])- Primary documented in this encounter [facility] note* Diagnosis Epigastric pain- Primary Abdominal pain, epigastric Endometriosis Endometriosis, site unspecified Gastroesophageal reflux disease, unspecified whether esophagitis present Tobacco use Tobacco use disorder History of seizure documented in this encounter [facility] note* Diagnosis Oligomenorrhea, unspecified type- Primary Screen for STD (sexually transmitted disease) Screening examination for venereal disease Endometriosis Endometriosis, site unspecified Chronic pelvic pain in female Unspecified symptom associated with female genital organs [facility]* Diagnosis Nausea and vomiting, unspecified vomiting type- Primary Fall, initial encounter Acute UTI Urinary tract infection, site not specified Rib pain Unspecified chest pain Acute back pain, unspecified back location, unspecified back pain laterality documented in this encounter [facility] note* Diagnosis Strain of right trapezius muscle, initial encounter- Primary Rash Rash and other nonspecific skin eruption Rib pain on right side documented in this encounter [facility] note* Diagnosis Nausea and vomiting, unspecified vomiting type- Primary Prolonged Q-T interval on ECG Nonspecific abnormal electrocardiogram (ECG) (EKG) Hypomagnesemia Disorders of magnesium metabolism documented in this encounter [facility] note* Diagnosis Prolonged Q-T interval on ECG- Primary Nonspecific abnormal electrocardiogram (ECG) (EKG) Nausea and vomiting, unspecified vomiting type Lightheadedness Dizziness and giddiness documented in this encounter [facility] note* Diagnosis Cannabis abuse- Primary Nondependent cannabis abuse, unspecified documented in this encounter [facility] note* Diagnosis Cyclic vomiting syndrome- Primary Persistent vomiting Cannabis abuse Nondependent cannabis abuse, unspecified Anxiety Anxiety state, unspecified documented in this encounter [facility] note* Diagnosis Nausea and vomiting, unspecified vomiting type- Primary Hypokalemia Hypopotassemia Resistant hypertension documented in this encounter [facility] noteNo assessment information availableWPremier Health Work Phone: Evaluation note* Diagnosis Encounter for screening for malignant neoplasm of cervix- Primary Screening for malignant neoplasm of the cervix Special screening examination for human papillomavirus (HPV) Pelvic pain in female Unspecified symptom associated with female genital organs Recurrent loss without current Mixed stress and urge urinary incontinence Mixed incontinence urge and stress (male)(female) [facility] Diagnosis Dysmenorrhea- Primary Abnormal uterine bleeding (AUB) BMI 45.0-49.9, adult (HCC) Body Mass Index 45.0-49.9, adult Intramural uterine fibroid * Assessment & Plan Note - Keiko Rios MD - 03/07/2025 12:51 PM EDT Associated Problem(s): Dysmenorrhea Orders: PELVIC US WHI; Future * Assessment & Plan Note - Keiko Rios MD - 03/07/2025 12:51 PM EDT Associated Problem(s): Abnormal uterine bleeding (AUB) Orders: PELVIC US WHI; Future * Assessment & Plan Note - Keiko Rios MD - 03/07/2025 12:51 PM EDT Associated Problem(s): BMI 45.0-49.9, adult (HCC) * Assessment & Plan Note - Keiko Rios MD - 03/07/2025 12:51 PM EDT Associated Problem(s): Intramural uterine fibroid Orders: PELVIC US WHI; Future [facility] Diagnosis Dysmenorrhea- Primary Abnormal uterine bleeding (AUB) BMI 45.0-49.9, adult (HCC) Body Mass Index 45.0-49.9, adult Intramural uterine fibroid Endometrial polyp- Primary Polyp of corpus uteri Dysmenorrhea Abnormal uterine bleeding (AUB) Intramural uterine fibroid Abnormal uterine bleeding Unspecified disorder of menstruation and other abnormal bleeding from female genital tract Dysmenorrhea documented in this encounter [facility] note* Diagnosis Dysmenorrhea- Primary Abnormal uterine bleeding (AUB) BMI 45.0-49.9, adult (HCC) Body Mass Index 45.0-49.9, adult Intramural uterine fibroid Abnormal uterine bleeding- Primary Unspecified disorder of menstruation and other abnormal bleeding from female genital tract Dysmenorrhea Abnormal uterine bleeding Unspecified disorder of menstruation and other abnormal bleeding from female genital tract Dysmenorrhea documented in this encounter [facility] note* Diagnosis Dysmenorrhea- Primary Abnormal uterine bleeding (AUB) BMI 45.0-49.9, adult (HCC) Body Mass Index 45.0-49.9, adult Intramural uterine fibroid BMI 45.0-49.9, adult (HCC)- Primary Body Mass Index 45.0-49.9, adult PTSD (post-traumatic stress disorder) Posttraumatic stress disorder Urinary incontinence, unspecified type Pre-op evaluation Preoperative examination, unspecified Nicotine dependence, cigarettes, uncomplicated Anxiety and depression Dysthymic disorder Marijuana use Cannabis abuse, unspecified Abnormal uterine bleeding Unspecified disorder of menstruation and other abnormal bleeding from female genital tract Dysmenorrhea documented in this encounter [facility] Discharge instructions* Attachments The following attachments cannot be sent through Care Everywhere. * Hormone Therapy for Abnormal Uterine Bleeding: Video ([place]) documented in this [facility] Discharge instructions* Attachments The following attachments cannot be sent through Care Everywhere. * Cannabinoid Hyperemesis Syndrome ([place]) * Pancreatitis ([place]) [facility]* Attachments The following attachments cannot be sent through Care Everywhere. * Seizure ([place]) documented in this [facility] Discharge instructions* Attachments The following attachments cannot be sent through Care Everywhere. * Nausea and Vomiting ([place]) documented in this [facility] Discharge instructions* Attachments The following attachments cannot be sent through Care Everywhere. * Nausea and Vomiting ([place]) * Hypokalemia ([place]) [facility] Additional Instructions Will contact you with your CT results. Your lab work today was overall reassuring. Continue try to push fluids. If your symptoms progress or hesitate to return the emergency room. [facility] Work Phone: Hospital Discharge instructionsAdditional Instructions Follow-up with the [facility] as scheduled tomorrow. Continue your Aygestin as previously directed.[facility] Work Phone: Reason for referral (narrative)* Consultation (Routine) - New Request Specialty Diagnoses / Procedures Referred By Contac t Referred To Contact [facility] Diagnoses Endometriosis Obinna Bryant MD, MPH [address] [place] [address] Referral ID Status Reason Start Date Expiration Date V isits Requested Visits Authorized [id number] New Request 06/10/2023 07/04/2024 1 1 * Consultation (Routine) - New Request Specialty Diagnoses / Procedures Referred By Contac t Referred To Contact Neurology Diagnoses History of seizure Obinna Bryant MD, MPH [address] [place] [address] Referral ID Status Reason Start Date Expiration Date V isits Requested Visits Authorized [id number] New Request 06/10/2023 07/04/2024 1 1 * Consultation (Routine) - New Request Specialty Diagnoses / Procedures Referred By Contac t Referred To Contact Gastroenterology Diagnoses Epigastric pain Obinna Bryant MD, MPH [address] [place] [address] Referral ID Status Reason Start Date Expiration Date V isits Requested Visits Authorized [id number] New Request 06/10/2023 07/04/2024 1 1 [facility] (n[facility]ative)No reason for referral information availableWPremier Health Work Phone: Reason for visit Narrative* Diagnostic Procedure Only (Routine) - Closed Specialty Diagnoses / Procedures Referred By Contac t Referred To Contact [facility] Diagnoses Dysmenorrhea Abnormal uterine bleeding (AUB) Intramural uterine fibroid Procedures PELVIC US WHI US PELVIC NONOBSTETRIC REAL-TIME IMAGE COMPLETE Keiko Rios MD [address] 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 Directives and Livin g Will 05/25/2019 2:51 AM Documents on File Type Date 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 Do not modify or discontinue any currently active code status orders. Code Status History Code Status Date Activated Date Inactivated Comments Full Code - Default 05/18/2023 7:37 PM 05/18/2023 9:04 P M This is order is used when code status has not been discussed with the patient, or code status is otherwise unknown/unconfirmed To update the patient's code status, place a code status order. Do not modify or discontinue any currently active code status orders. Latest Code Status on File Code Status Date Activated Date Inactivated Comments Full Code - Confirmed 05/18/2023 9:04 PM 05/19/2023 11:0 9 AM This code status was ascertained in the following way: Code status discussion: discussion with patient To update the patient's code status, place a code status order. Do not modify or discontinue any currently active code status orders. Latest Code Status on File Code Status Date Activated Date Inactivated Comments Full Code 03/24/2018 1:21 PM Code Status History Code Status Date Activated Date Inactivated Comments Full Code 02/05/2018 11:18 AM 03/24/2018 1:21 PM Full Code 01/30/2018 9:13 AM 02/05/2018 11:18 AM Latest Code Status on File Code Status Date Activated Date Inactivated Comments Full Code 03/24/2018 1:21 PM Code Status History Code Status Date Activated Date Inactivated Comments Full Code 02/05/2018 11:18 AM 03/24/2018 1:21 PM Full Code 01/30/2018 9:13 AM 02/05/2018 11:18 AM Advance Directive Response Recorded Date/ Time Living Will No September 16 5:02pm Do you have a Healthcare Power of Buncher Operator? No September 16, 2024 5:02pm Do you have a Healthcare Power of Buncher Operator? No January 14, 2025 11:37am Advance Directive Response Recorded Date/ Time Do you have a Healthcare Power of Buncher Operator? No January 14, 2025 11:37am Advance Directive Response Recorded Date/ Time Do you have a Healthcare Power of Buncher Operator? No January 14, 2025 11:37am Do you have a Healthcare Power of Buncher Operator? No March 15, 2025 9:41pm Reason for Referral Status Reason Specialty Diagnoses / Procedures Referred By Contact Referred To Contact New Request Diagnoses Abnormal uterine bleeding (AUB) Procedures US PELVIC W TRANSVAGINAL Nataliia Marie MD [address] [place] [address] Specialty Diagnoses / Procedures Referred By Contac t Referred To Contact Radiology Diagnoses Irregular menstrual cycle Excessive bleeding in premenopausal period Procedures US Pelvis Transvaginal Non OB Korina Rios DO [address] [place] [address] Referral ID Status Reason Start Date Expiration Date V isits Requested Visits Authorized [id number] Authorized 02/27/2022 08/26/2022 1 1 Assessments Diagnosis Abnormal uterine bleeding (A UB) - Primary Diagnosis Foot swelling- Primary Swelling of limb Diagnosis Nonintractable headache, unspecified chronicity pattern, unspecified headache type Chief Complaint and Reason for Visit Chief Complaint Admit Date N/V/D September 16, 2024 4 :02pm abd pain January 14, 2025 9:49a m Chief Complaint Admit Date abd pain January 14, 2025 9:49a m VEG BLEED March 14, 2025 6:04 pm Chief Complaint Admit Date abd pain January 14, 2025 9:49a m VEG BLEED March 14, 2025 6:04 pm vag bleed March 15, 2025 8:57 pm Chief Complaint Admit Date abd pain January 14, 2025 9:49a m VEG BLEED March 14, 2025 6:04 pm vag bleed March 15, 2025 8:57 pm bleeding March 16, 2025 1:18 pm Additional Source Comments ED Notes - Kathy Ibrahim RN - 01/27/2018 9:03 PM EDTED Notes - Monica Mtz RN - 01/27/2018 7:45 PM EDTED Attestation Note - Samaria Sharif MD - 05/25/2019 5:07 AM EDT Miscellaneous Notes (unrecog nized section and content) Pt states she no longer wants to be seen d/t long wait times. Pt ambulatory out of dept with steady gait. Pt presents to ED via triage with primary c/o epigastric abdominal pain, N/V that started yesterday. Denies constipation and diarrhea. Pt states she was seen at [facility] and was given a shot of phenergan and was sent home with a prescription for Zophran.in this encounter I personally interviewed the patient. I personally examined the patient. I discussed the patient with PROMOTIONS ASSISTANT/PA. I agree with the PROMOTIONS ASSISTANT/PA treatment plan. I agree with the PROMOTIONS ASSISTANT/PA plan of care. I agree with the PROMOTIONS ASSISTANT/PA dispo as documented. At a long discussion with the patient at bedside about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 Relationship Specialty Start Date End Date Patrick Mcdermott, PROCESS SUPERVISOR.[employer] [address] [place] [address] PCP - General Internal Medicine 01/16/25 [employer] Relationship Specialty Start Date End Date Patrick Mcdermott, PROCESS SUPERVISOR.[employer] [address] [place] [address] PCP - General Internal Medicine 01/16/25 Team Status: Active Member Role/Relationship Status Dates Patrick Mcdermott NP, PROMOTIONS ASSISTANT-C Primary Care Provider Active Team Status: Inactive Member Role/Relationship Status Dates Patrick Mcdermott NP, PROMOTIONS ASSISTANT-C Primary Care Provider Active Start: January 14, 2025 End: January 14, 2025 Dr. Juliet Aragon DO Attending Provider Active Start: January 14, 2025 End: January 14, 2025 Dr. Juliet Aragon , Emergency Provider Active Start: January 14, 2025 End: January 14, 2025 Team Status: Inactive Member Role/Relationship Status Dates Patrick Mcdermott NP, PROMOTIONS ASSISTANT-C Primary Care Provider Active Start: March 14, 2025 End: March 14, 2025 Ed Physician Provider Emergency Provider Active Start: March 14, 2025 End: March 14, 2025 Team Status: Inactive Member Role/Relationship Status Dates Patrick Mcdermott NP, PROMOTIONS ASSISTANT-C Primary Care Provider Active Start: March 15, 2025 End: March 16, 2025 Jai Arizmendi MD Referring Provider Active Star t: March 15, 2025 End: March 16, 2025 Jai Arizmendi MD Emergency Provider Active Star t: March 15, 2025 End: March 16, 2025 Team Status: Inactive Member Role/Relationship Status Dates Patrick Mcdermott PROMOTIONS ASSISTANT, PROMOTIONS ASSISTANT-C Primary Care Provider Active Start: March 16, 2025 End: March 16, 2025 Ed Physician Provider Emergency Provider Active Start: March 16, 2025 End: March 16, 2025 [employer] Relationship Specialty Start Date End Date Patrick Mcdermott, PROCESS SUPERVISOR.[employer] [address] [place], [place] [phone] PCP - General Internal Medicine 01/16/25 [employer] Relationship Specialty Start Date End Date Patrikc Mcdermott, PROCESS SUPERVISOR.[employer] [address] [place] [address] [place], [place] [address] PCP - General Internal Medicine 01/16/25 [employer] Relationship Specialty Start Date End Date Patrick Mcdermott, PROCESS SUPERVISOR.[employer] [address] [place] [address] [place], [place] [address] PCP - General Internal Medicine 01/16/25 [employer] Relationship Specialty Start Date End Date Patrick Mcdermott, PROCESS SUPERVISOR.[employer] [address] [place] [address] [place], [place] [phone] PCP - General Internal Medicine 01/16/25 [employer] Relationship Specialty Start Date End Date Patrick Mcdermott, PROCESS SUPERVISOR.[employer] [address] [place] [address] [place], [place] [address] PCP - General Internal Medicine 01/16/25 Scheduled Active and Recently Administ ered Medications (unrecognized section and content) Medication Order 04/15/2022 04/16/2022 04/17/2022 famotidine (PEPCID) tablet 20 mg (COMPLETED) 20 mg, oral, Once, On Wed04/17/22 at 0003, For 1 dose 0003 (Given - Provid er: Linda Moreno RN) ibuprofen (ADVIL,MOTRIN) tablet 600 mg (COMPLETED) 600 mg, oral, Once, On Wed04/17/22 at 0003, For 1 dose, Administer with food or milk to decrease GI upset 0003 (Given - Provid er: Linda Moreno RN) meclizine (ANTIVERT) tablet 25 mg (COMPLETED) 25 mg, oral, Once, On Wed04/17/22 at 0003, For 1 dose 0003 (Given - Provid er: Linda Moreno RN) ondansetron ODT (ZOFRAN-ODT) disintegrating tablet 4 mg (COMPLETED) 4 mg, oral, Once, On Wed04/17/22 at 0003, For 1 dose 0003 (Given - Provid er: Linda Moreno RN) Scheduled Medication Order 04/27/2022 04/28/2022 04/29/2022 naproxen sodium (ANAPROX) tablet 500 mg (COMPLETED) 500 mg, oral, Once, On Wed04/29/22 at 0308, For 1 dose 0335 (Given - Provid er: Iona Washburn RN) Scheduled Medication Order 05/08/2022 05/09/2022 05/10/2022 HYDROcodone-acetaminophen (NORCO) 5-325 mg per tablet 1 tablet (COMPLETED) 1 tablet, oral, Once, On Wed05/10/22 at 0449, For 1 dose 0508 (Given - Provid er: Iona Washburn RN) Scheduled Medication Order 05/16/2023 05/17/2023 05/18/2023 famotidine (PF) (PEPCID) injection 20 mg (COMPLETED) 20 mg, intravenous, Administer over 2 Minutes, Once, On Wed05/18/23 at 0109, For 1 dose 0111 (Given - Provid er: Rachana Garcia RN) haloperidol lactate (HALDOL) injection 5 mg (COMPLETED) 5 mg, intramuscular, Once, On Wed05/18/23 at 0030, For 1 dose, May be ordered via either intramuscular or intravenous route. If ordered IV, maximum of 5 mg/minute. 0037 (Given - Provid er: Maulik Douglas LPN) HYDROmorphone (DILAUDID) injection 0.5 mg (COMPLETED) 0.5 mg, intravenous, Once, On Wed05/18/23 at 0109, For 1 dose 0112 (Given - Provid er: Rachana Garcia RN) metoclopramide (REGLAN) injection 10 mg (COMPLETED) 10 mg, intravenous, Once, On Wed05/18/23 at 0109, For 1 dose, Doses LESS than or equal to 10 mg can be given IV push undiluted over 1 minute Doses LESS than or equal to 10 mg can be given IV push undiluted over 1 minute 0112 (Given - Provid er: Rachana Garcia RN) sodium chloride 0.9 % bolus 1,000 mL (COMPLETED) 1,000 mL, intravenous, at 1,000 mL/hr, Administer over 1 Hours, Once, On Wed05/18/23 at 0030, For 1 dose 0050 (New Bag - Prov ider: Maulik Douglas LPN)0150 (Due: Stopped - Provider: Maulik Douglas LPN) Scheduled Medication Order 05/16/2023 05/17/2023 05/18/2023 droPERidol (INAPSINE) injection 1.25 mg (COMPLETED) 1.25 mg, intravenous, Once, On Wed05/18/23 at 1557, For 1 dose, Emergency Departments, Operating areas, and Post-operative areas (one time doses) for patients who FAIL TO SHOW ADEQUATE RESPONSE to other treatments: -For doses GREATER than OR equal to 2.5 mg, ECG monitoring should be performed prior to treatment and continued for 2 to 3 hours after completing treatment -For doses LESS than 2.5 mg, ECG monitoring is NOT required Head Pain units if other agents are unsuccessful (MAX of 2.5 mg three times daily): -Monitor ECG at baseline and daily while on regimen, Has the patient failed to show an adequate response to other treatments? (See order restrictions above): Yes, Is a droperidol dose GREATER than OR equal to 2.5 mg being ordered? No 1549 (Given - Provid er: Yara Ramirez RN) iopamidoL (ISOVUE-300) 300 mg iodine /mL (61 %) solution 100 mL (COMPLETED) 100 mL, intravenous, Once in imaging, Starting on Wed05/18/23 at 1600, For 1 dose 1609 (Given - Provid er: Elmer Francis) sodium chloride 0.9 % bolus 1,000 mL (COMPLETED) 1,000 mL, intravenous, at 1,000 mL/hr, Administer over 1 Hours, Once, On Wed05/18/23 at 1557, For 1 dose 1549 (New Bag - Prov ider: Yara Ramirez, RN)1836 (Stopped - Provider: Iona Washburn RN) sodium chloride 0.9 % flush 20 mL (COMPLETED) 20 mL, intravenous, Once, On Wed05/18/23 at 1616, For 1 dose 1609 (Given - Provid er: Elmer Francis) Scheduled Medication Order 05/17/2023 05/18/2023 05/19/2023 acetaminophen (TYLENOL) tablet 650 mg (COMPLETED) 650 mg, oral, Once, On Wed05/19/23 at 1952, For 1 dose 2001 (Given - Provid er: Brittani Schwarz RN) levETIRAcetam (KEPPRA) injection 500 mg (COMPLETED) 500 mg, intravenous, Administer over 5 Minutes, Once, On Wed05/19/23 at 1918, For 1 dose, IV push over 5 minutes for doses up to 1500 mg. 1926 (Given - Provid er: Nany Luciano RN) magnesium oxide (MAG-OX) tablet 400 mg (COMPLETED) 400 mg, oral, Once, On Wed05/19/23 at 1953, For 1 dose 2001 (Given - Provid er: Brittani Schwarz RN) ondansetron (PF) (ZOFRAN) injection 4 mg (COMPLETED) 4 mg, intravenous, Once, On Wed05/19/23 at 1951, For 1 dose 2001 (Given - Provid er: Brittani Schwarz RN) potassium chloride (KLOR-CON M20) CR tablet 20 mEq (COMPLETED) 20 mEq, oral, Once, On Wed05/19/23 at 195, For 1 dose, Tablet may be swallowed whole (do not crush/chew/suck on) OR broken in half and each half swallowed separately OR dissolved (whole tablet) in ~4 ounces of water (allow ~2 minutes to dissolve, stir well and administer immediately). 2001 (Given - Provid er: Brittani Schwarz RN) Scheduled Medication Order 05/29/2023 05/30/2023 05/31/2023 droPERidol (INAPSINE) injection 1.25 mg 1.25 mg, intravenous, Once, On Wed05/31/23 at 0132, For 1 dose, Emergency Departments, Operating areas, and Post-operative areas (one time doses) for patients who FAIL TO SHOW ADEQUATE RESPONSE to other treatments: -For doses GREATER than OR equal to 2.5 mg, ECG monitoring should be performed prior to treatment and continued for 2 to 3 hours after completing treatment -For doses LESS than 2.5 mg, ECG monitoring is NOT required Head Pain units if other agents are unsuccessful (MAX of 2.5 mg three times daily): -Monitor ECG at baseline and daily while on regimen, Has the patient failed to show an adequate response to other treatments? (See order restrictions above): Yes, Is a droperidol dose GREATER than OR equal to 2.5 mg being ordered? No 0145 (Not Given - Pr ovider: Karolina Echavarria RN - Reason: Patient/Resident/Agent refused - education provided ) famotidine (PF) (PEPCID) injection 20 mg 20 mg, intravenous, Administer over 2 Minutes, Once, On Wed05/31/23 at 0132, For 1 dose 0145 (Not Given - Pr ovider: Karolina Echavarria RN - Reason: Patient/Resident/Agent refused - education provided ) sodium chloride 0.9 % bolus 1,000 mL 1,000 mL, intravenous, at 2,000 mL/hr, Administer over 30 Minutes, Once, On Wed05/31/23 at 0132, For 1 dose 0145 (Not Given - Pr ovider: Karolina Echavarria RN - Reason: Patient/Resident/Agent refused - education provided ) Scheduled Medication Order 08/02/2023 08/03/2023 08/04/2023 ondansetron (PF) (ZOFRAN) injection 4 mg (COMPLETED) 4 mg, intravenous, Once, On Wed08/04/23 at 0818, For 1 dose 0819 (Given - Provid er: Elvia Infante RN) sodium chloride 0.9 % bolus 1,000 mL 1,000 mL, intravenous, at 2,000 mL/hr, Administer over 30 Minutes, Once, On Wed08/04/23 at 0818, For 1 dose 0824 (Not Given - Pr ovider: Elvia Infante RN - Reason: Patient/Resident/Agent refused - education provided ) Scheduled Medication Order 08/03/2023 08/04/2023 08/05/2023 diphenhydrAMINE (BENADRYL) injection 25 mg (COMPLETED) 25 mg, intramuscular, Once, On Patricia 08/05/23 at 0210, For 1 dose 022 (Given - Provid er: Jhony Moran RN) ketorolac (TORADOL) injection 15 mg (COMPLETED) 15 mg, intramuscular, Once, On Patricia 08/05/23 at 0210, For 1 dose 022 (Given - Provid er: Jhony Moran RN) Scheduled Medication Order 09/24/2023 09/25/2023 09/26/2023 LORazepam (ATIVAN) injection 1 mg (COMPLETED) 1 mg, intravenous, Once, On 09/26/23 at 0710, For 1 dose, Prior to IV use, lorazepam injection should be DILUTED with an equal volume of compatible solution; Rate of administration should NOT exceed 2 mg/min. 0722 (Given - Provid er: Jose Bailey) magnesium sulfate 2 gram/50 mL (4 %) IVPB 2 g (COMPLETED) 2 g, intravenous, Once, On Wed09/26/23 at 0751, For 1 dose 0756 (New Bag - Prov ider: Jose Bailey)0820 (Stopped - Provider: Sonny Moran RN) sodium chloride 0.9 % bolus 1,000 mL (COMPLETED) 1,000 mL, intravenous, Once, On 09/26/23 at 0710, For 1 dose 0722 (New Bag - Prov ider: Jose Bailey)0820 (Stopped - Provider: Sonny Moran RN) Scheduled Medication Order 09/25/2023 09/26/2023 09/27/2023 diphenhydrAMINE (BENADRYL) injection 25 mg (COMPLETED) 25 mg, intravenous, Once, On Wed09/27/23 at 1607, For 1 dose 1606 (Given - Provid er: Yara Ramirez RN) LORazepam (ATIVAN) injection 1 mg (COMPLETED) 1 mg, intravenous, Once, On Wed09/27/23 at 1607, For 1 dose, Prior to IV use, lorazepam injection should be DILUTED with an equal volume of compatible solution; Rate of administration should NOT exceed 2 mg/min. 1606 (Given - Provid er: Yara Ramirez RN) magnesium sulfate 2 gram/50 mL (4 %) IVPB 2 g 2 g, intravenous, at 25 mL/hr, Administer over 2 Hours, Once, On Wed09/27/23 at 1607, For 1 dose 1607 (Stopped - Prov ider: Yara Ramirez RN - Comment: pt refused medication) sodium chloride 0.9 % bolus 1,000 mL (COMPLETED) 1,000 mL, intravenous, at 2,000 mL/hr, Administer over 30 Minutes, Once, On Wed09/27/23 at 1607, For 1 dose 1605 (New Bag - Prov ider: Yara Ramirez RN)1633 (Stopped - Provider: Yara Ramirez RN) Scheduled Medication Order 11/20/2023 11/21/2023 11/22/2023 diphenhydrAMINE (BENADRYL) injection 25 mg 25 mg, intravenous, Once, On Wed11/22/23 at 0516, For 1 dose haloperidol lactate (HALDOL) injection 2.5 mg 2.5 mg, intravenous, Once, On Wed11/22/23 at 0516, For 1 dose, May be ordered via either intramuscular or intravenous route. If ordered IV, maximum of 5 mg/minute. ondansetron ODT (ZOFRAN-ODT) disintegrating tablet 4 mg 4 mg, oral, Once, On Wed11/22/23 at 0529, For 1 dose sodium chloride 0.9 % bolus 1,000 mL 1,000 mL, intravenous, at 1,000 mL/hr, Administer over 1 Hours, Once, On Wed11/22/23 at 0516, For 1 dose Scheduled Medication Order 11/20/2023 11/21/2023 11/22/2023 ondansetron ODT (ZOFRAN-ODT) disintegrating tablet 4 mg (COMPLETED) 4 mg, oral, Once, On Wed11/22/23 at 0544, For 1 dose 0545 (Given - Provid er: Jhony Moran RN) Scheduled Medication Order 11/22/2023 11/23/2023 11/24/2023 diphenhydrAMINE (BENADRYL) injection 25 mg (COMPLETED) 25 mg, intravenous, Once, On Wed11/24/23 at 1516, For 1 dose 1541 (Given - Provid er: Robert Kamara RN) famotidine (PF) (PEPCID) injection 20 mg (COMPLETED) 20 mg, intravenous, Administer over 2 Minutes, Once, On Wed11/24/23 at 1516, For 1 dose 1541 (Given - Provid er: Robert Kamara RN) haloperidol lactate (HALDOL) injection 2.5 mg (COMPLETED) 2.5 mg, intravenous, Once, On Wed11/24/23 at 1746, For 1 dose, May be ordered via either intramuscular or intravenous route. If ordered IV, maximum of 5 mg/minute. 1757 (Given - Provid er: Robert Kamara RN) potassium chloride (KLOR-CON M20) CR tablet 40 mEq (COMPLETED) 40 mEq, oral, Once, On Wed11/24/23 at 1631, For 1 dose, Tablet may be swallowed whole (do not crush/chew/suck on) OR broken in half and each half swallowed separately OR dissolved (whole tablet) in ~4 ounces of water (allow ~2 minutes to dissolve, stir well and administer immediately). 173 (Given - Provid er: Madonna Peck RN) sodium chloride 0.9 % bolus 1,000 mL (COMPLETED) 1,000 mL, intravenous, at 1,000 mL/hr, Administer over 1 Hours, Once, On Wed11/24/23 at 1746, For 1 dose 175 (New Bag - Prov ider: Robert Kamara RN)1915 (Stopped - Provider: Art Murcia RN) PRN Medication Order 11/22/2023 11/23/2023 11/24/2023 ondansetron (PF) (ZOFRAN) injection 4 mg (COMPLETED) 4 mg, intravenous, Once as needed, nausea, vomiting, Starting on Wed11/24/23 at 1630, For 1 dose 173 (Given - Provid er: Madonna Peck RN) Goals (unrecognized section and content) Goals may be documented in a n alternate sectionGoals may be documented in an alternate sectionGoals may be documented in an alternate sectionGoals may be documented in an alternate section Source Comments (unrecognize d section and content) In the event this informatio n is protected by the Federal Confidentiality of Alcohol and Drug Abuse Patient Records regulations: The Federal rules restrict any use of the information to criminally investigate or prosecute any alcohol or drug abuse patient.[facility] the event this information is protected by the Federal Confidentiality of Alcohol and Drug Abuse Patient Records regulations: The Federal rules restrict any use of the information to criminally investigate or prosecute any alcohol or drug abuse patient.[facility] the event this information is protected by the Federal Confidentiality of Alcohol and Drug Abuse Patient Records regulations: The Federal rules restrict any use of the information to criminally investigate or prosecute any alcohol or drug abuse patient.[facility] the event this information is protected by the Federal Confidentiality of Alcohol and Drug Abuse Patient Records regulations: The Federal rules restrict any use of the information to criminally investigate or prosecute any alcohol or drug abuse patient.[facility] Center[facility] the event this information is protected by the Federal Confidentiality of Alcohol and Drug Abuse Patient Records regulations: The Federal rules restrict any use of the information to criminally investigate or prosecute any alcohol or drug abuse patient.[facility] the event this information is protected by the [facility] Confidentiality of Alcohol and Drug Abuse Patient Records regulations: The Federal rules restrict any use of the information to criminally investigate or prosecute any alcohol or drug abuse patient.[facility] Center[facility] the event this information is protected by the Federal Confidentiality of Alcohol and Drug Abuse Patient Records regulations: The Federal rules restrict any use of the information to criminally investigate or prosecute any alcohol or drug abuse patient.[facility] FOR RECORDS PERTAINING TO PATIENTS WHO ARE OR HAVE BEEN ENROLLED IN A CHEMICAL DEPENDENCY/SUBSTANCEABUSE PROGRAM, SOME INFORMATION MAY BE OMITTED. This clinical summary was aggregated from multiple sources. Caution should be exercised in using it in the provision of clinical care. This summary normalizes information from multiple sources, and as a consequence, information in this document may materially change the coding, format and clinical context of patient data. In addition, data may be omitted in some cases. CLINICAL DECISIONS SHOULD BE BASED ON THE PRIMARY CLINICAL RECORDS. [facility]. provides no warranty or guarantee of the accuracy or completeness of information in this document.
[2025-03-31 18:09] LABS: Color, Urine Yellow (Yellow); Glucose, Dipstick Normal (Normal); Ketone-Dipstick Negative (Negative); Leukocyte Esterase-Dipstick 100 /ul (Negative); Nitrite-Dipstick Negative (Negative); Occult Blood-Urine 250 /ul (Negative); Protein-Dipstick 30 mg/dl (Negative); Specific Gravity, Urine 1.025 (1.002-1.030); Urine Bilirubin Dipstick Negative (Negative)
[2025-03-31 18:10] LABS: Hematocrit 38.2 % (37-47); Hemoglobin 12.5 g/dL (12.0-15.0); Immature Granulocytes Count 0.090 X10^3/uL (0.0-0.0); Mean Corp Hgb Conc 32.7 g/dL (32-36); Mean Corpuscular Volume 90.1 fL (81-99); Mean Platelet Vol. 10.1 fl (6.2-12.0); NRBC Flagged by Analyzer 0 % (0-5); Platelet Count 334 K/mm3 (150-450); RBC Distribution Width CV 15.2 % (11.6-14.6); RBC Distribution Width SD 49.3 fl (35.1-43.9); Red Blood Count 4.24 M/mm3 (4.2-5.4); White Blood Count 16.7 K/mm3 (4.4-11.0)
[2025-03-31 18:11] LABS: Internal QC Validated? YES +Cl - CLEAR BKGD; Pregnancy, Urine Negative Negative; Record Kit Lot#,Urine Preg 0000962302
--- NOTE | 2025-03-31 18:25 | CT_ITS ---
PROCEDURE: ABDOMEN/PELVIS W IV CONT ONLY 03/31/2025 REASON FOR EXAM: LOWER ABDOMINAL PAIN, D AND C ONE WEEK AGO TECHNIQUE: ABDOMEN/PELVIS W IV CONT ONLY Coronal and Sagittal reconstruction series were provided. CONTRAST: Isovue 370 VOLUME: 100 mL One or more dose reduction techniques were used (e.g., Automated exposure control, adjustment of the mA and/or kV according to patient size, use of iterative reconstruction technique. RADIATION DOSE SUMMARY: DLP: 1300 mGycm COMPARISON: CT abdomen pelvis 03/15/2025. FINDINGS: Lung bases: Unremarkable. Liver: Mild hepatomegaly with diffuse hepatic steatosis. No suspicious hepatic mass. The major portal veins are patent. No biliary ductal dilation. Gallbladder: Surgically absent. Spleen: Normal size. Pancreas: Unremarkable. Adrenals: No adrenal mass. Kidneys: No hydronephrosis or nephrolithiasis. Bladder: Decompressed. Reproductive Organs: An IUD is present. Adnexal regions are unremarkable. Bowel: The bowel loops are nondilated. No ascites or pneumoperitoneum. Normal appendix. Lymph nodes: No suspicious lymph node enlargement. Vasculature: The abdominal aorta and IVC are normal. Bones: Unremarkable. CT/Abdomen/Pelvis W IV Cont ONLY IMPRESSION: No acute abdominopelvic finding. Mild hepatomegaly and diffuse hepatic steatos is. Reading Location: [id number]
[2025-03-31 18:52] LABS: AST(SGOT) 16 U/L (<=31); Alanine Aminotransfer ALT/SGPT 12 U/L (<=34); Albumin, Serum 3.8 g/dL (3.5-5.0); Alkaline Phosphatase 103 U/L (35-104); Anion Gap 12 (5-15); BUN 3 mg/dL (4-19); BUN/Creat Ratio 5.9 RATIO (10-20); Calcium,Total 9.0 mg/dL (7.6-11.0); Carbon Dioxide 24.0 mmol/L (21.0-32.0); Chloride 101 mmol/L (98-108); Estimated Creatinine Clearance 220.16 ml/min (50-250); Globulin 3.7 g/dL (2.2-4.2); Glucose 105 mg/dL (70-99); Potassium 4.0 mmol/L (3.3-5.1)
[2025-03-31 19:02] VITALS: BP 149/86; PULSE 86; RESP 17; O2SAT 100
--- NOTE | 2025-03-31 19:25 | ED.VIS.FEGU ---
HPI HPI - Female History of Present Illness Chief Complaint: Female C/O Narrative Narrative: Patient is a 35-year-old female presenting to the emergency department for lower abdominal pain. Patient states when she went to urinate she felt down there and felt a bulge. She thinks it is her IUD. She states that she had a D&C for endometriosis on Wednesday. States since then she has been having some nausea as well as lower abdominal pain. She denies fever, chills, abnormal vaginal discharge, bleeding, pelvic pain. PFSH PFSH Medical History PTSD (post-traumatic stress disorder) Bipolar 1 disorder Anxiety Osteoarthritis of right knee Right knee pain Home Medications ?Medication ?Instructions ?Recorded ?Last Taken ?Type ondansetron 4 mg disintegrating 4 mg PO Q8H PRN PRN Nausea #10 tabs 09/16/24 Unknown Rx tablet ondansetron 4 mg disintegrating 4 mg PO Q8H PRN PRN Nausea #10 tabs 03/31/25 Unknown Rx tablet Allergy/AdvReac Type Severity Reaction Status Date / Time trazodone Allergy Severe Anaphylaxis Verified 03/31/25 14:56 sulfamethoxazole (From Allergy Intermediate Rash Verified 03/31/25 14:56 Bactrim) trimethoprim (From Bactrim) Allergy Intermediate Rash Verified 03/31/25 14:56 aspirin Allergy Swelling Verified 03/31/25 14:56 peanut (peanuts) Allergy Other Verified 03/31/25 14:56 diazepam (From Valium) AdvReac Other Verified 03/31/25 14:56 Family History Mother Heart disease Father Seizures Surgical History H/O laparoscopy History of cholecystectomy Social History household members: spouse and family Smoking Status: Current every day smoker tobacco type: cigarettes and e-cigarettes alcohol intake: never ROS ROS ED ROS Narrative See HPI EXAM Physical Exam Narrative Exam Narrative: Vital signs: Reviewed General: Alert and oriented. No acute distress HEENT: Head is normocephalic and atraumatic, sinuses nontender, pupils equal round and reactive. Nares are patent. Oropharynx and throat exams normal. Neck: Supple without lymphadenopathy nontender Cardiovascular: Regular rate and rhythm, no murmurs. No rubs or gallops. Normal S1 and S2 Respiratory: Clear to auscultation bilaterally. No wheezes, rales, rhonchi Abdominal: Soft and tender to palpation in the lower abdomen. Normal bowel sounds. No guarding or rebound. Nonsurgical abdomen : done with [employer] consultant RN at bedside. Very mild blood in vaginal vault. Strings of IUD seen at cervical os. No erythema or discharge from cervix. No bulge or abnormalities seen on external exam. Extremities: No tenderness. No bruising. Normal range of motion. Normal sensation. Skin: No rash or redness. Neurological: Cranial nerves II through XII are grossly intact. Normal strength and sensation. Normal cerebellar function The rest of the physical exam is unremarkable Const Vital Signs: 03/31/25 14:54 03/31/25 19:02 Temperature 98.2 F Temperature Source Oral Pulse Rate 110 H 86 Respiratory Rate 18 17 Blood Pressure 160/104 H 149/86 H Blood Pressure Mean 122 107 Pulse Ox 99 100 Oxygen Delivery Method Room Air Room Air MDM MDM MDM Narrative Medical decision making narrative: Patient is a 35-year-old female presenting to the emergency department for lower abdominal pain. Patient was seen and examined. Vitals are stable. Patient resting bed comfortably in no acute distress. Patient given analgesia antiemetic. Given the recent D&C I did consider possible infection secondary to this. Lab work and imaging was ordered pelvic was done as well. CBC with a leukocytosis of 16 which is downtrending from 03/15 when it was 22.5. Patient has been nauseous and has episodes of vomiting which would likely contribute to the leukocytosis. CMP with no significant abnormalities. Urinalysis with no evidence of UTI. Urine negative. CT shows no acute findings. I did speak with the on-call CLINICAL PSYCHOLOGY TEACHER SHUTTLE CAR OPERATOR for Dr. Joaquin, who did not have any other further recommendations and will follow up with her closely. Patient feels much improved after the analgesia and antiemetic. She was prescribed Zofran for home if needed. Patient discharged from the Emergency Department. I do not feel that the patient's evaluation reveals any acute reason for admission at this time. I instructed them to either follow-up with their primary care physician or promptly return to the Emergency Department for reevaluation should symptoms worsen or new symptoms develop. I explained what symptoms would indicate the need to return to the emergency department. Shared decision making was used. The patient voiced understanding of the treatment plan and is agreeable with it. Impression 1. abdominal pain 2. leukocytosis 3. nausea and vomiting History & Record Review Discussion w/independent historian: Patient and Friend Additional record(s) reviewed:: Prior outpatient record and Prior ED visit Lab Data Attestation: I reviewed the patient's lab results. Labs: Laboratory Results - last 24 hr 03/31/25 03/31/25 17:59 18:03 WBC 16.7 H RBC 4.24 Hgb 12.5 Hct 38.2 MCV 90.1 MCH 29.5 MCHC 32.7 RDW Std Deviation 49.3 H RDW Coeff of Linda 15.2 H Plt Count 334 MPV 10.1 Immature Gran % (Auto) 0.500 Neut % (Auto) 76.2 H Lymph % (Auto) 17.9 L [place] % (Auto) 4.2 Eos % (Auto) 1.0 Baso % (Auto) 0.2 Absolute Neuts (auto) 12.7 H Absolute Lymphs (auto) 2.98 Nucleated RBC % 0 Sodium 137 Potassium 4.0 Chloride 101 Carbon Dioxide 24.0 Anion Gap 12 BUN 3 L Creatinine 0.52 L Estim Creat Clear Calc 220.16 Est GFR (MDRD) Non-Af 124 BUN/Creatinine Ratio 5.9 L Glucose 105 H Calcium 9.0 Total Bilirubin 0.32 AST 16 ALT 12 Alkaline Phosphatase 103 Total Protein 7.5 Albumin 3.8 Globulin 3.7 Albumin/Globulin Ratio 1.0 Urine Color Yellow Urine Clarity Sl. Cloudy Urine pH 5.0 Ur Specific [place] 1.025 Urine Protein 30 H Urine Glucose (UA) Normal Urine Ketones Negative Urine Occult Blood 250 H Urine Nitrite Negative Urine Bilirubin Negative Urine Urobilinogen Normal Ur Leukocyte Esterase 100 H Urine Test Negative Radiography Diagnostic Testing: Clinical Impression(s) from Imaging Studies Abdomen/Pelvis CT 03/31/25 18:25 IMPRESSION: No acute abdominopelvic finding. Mild hepatomegaly and diffuse hepatic steatosis. Reading Location: [facility] Discharge Plan Triage Chief Complaint: Female C/O ED Provider: Meri Coulter Dx/Rx/DC Orders Clinical Impression: Abdominal pain, Leukocytosis Instructions: Abdominal Pain Prescriptions: New ondansetron 4 mg tablet,disintegrating 4 mg PO Q8H PRN PRN (Reason: Nausea) Qty: 10 0RF No Action ondansetron 4 mg tablet,disintegrating 4 mg PO Q8H PRN PRN (Reason: Nausea) Qty: 10 0RF Primary Care Provider: Ursula Silver NP Referrals: Keiko Clarke MD [Med Staff - Active Staff] - 2 Days (on Wednesday) Ursula Silver NP, SH[employer]TLE CAR OPERATOR-C [Primary Care Provider] - Activity Restrictions/Additional Instructions: Your evaluation in the Emergency Department did not reveal any acute reason for admission. However, I want to emphasize that you may be early in the course of a disease process or illness even if it is not present. For this reason you should follow-up within 24 hours for reevaluation with either your primary care physician or if necessary back here in the Emergency Department. You should return to the Emergency Department immediately if your symptoms worsen or new symptoms develop. Please follow-up with Dr. Clarke on Wednesday. Take Zofran every 8 hours as needed for nausea and vomiting. Return to the ED with any new or worsening symptoms Print Language: Irish Disposition Disposition: Home, Self Care Discharge Date/Time: 03/31/25 20:17
[2025-03-31 20:17] VITALS: BP 149/86; PULSE 86; RESP 17; TEMP 36.6; O2SAT 100
== END 2025-03-31 20:17 | disposition home or self-care (01) ==
PROVIDERS: Emergency Provider Student in an Organized Health Care Education/Training Program; PCP Nurse Practitioner Family; Referring Provider Student in an Organized Health Care Education/Training Program; Visit Provider Student in an Organized Health Care Education/Training Program
DX: R39.9 Unspecified symptoms and signs involving the genitourinary system (principal); F31.9 Bipolar disorder, unspecified; F43.10 Post-traumatic stress disorder, unspecified; F17.290 Nicotine dependence, other tobacco product, uncomplicated; F17.210 Nicotine dependence, cigarettes, uncomplicated
CPT/HCPCS: 74177; 80053; 81002; 81025; 85025; 87491; 87591; 87661; 96374; 96375; 96376; 99282; Q9967; A4216; J2405